=== PATIENT | female | born 1975 | race Two or more races ===

== ENCOUNTER 2017-01-27 00:09 | Inpatient (IN) | payer MEDICAID ==
[~2017-01-27] VITALS: Ht 157.5 cm; Wt 49.0 kg
[2017-01-27] VITALS (25 sets, daily range): BP systolic 111–200; BP diastolic 52–90
[2017-01-27] MEDS ORDERED: ATENOLOL25 MG ORAL (00:17)
--- NOTE | 2017-01-27 00:21 | Emergency Room Report ---
History of Present Illness General Chief Complaint: Dyspnea/Respdistress Source: Patient, EMS Present Illness HPI Is a 41-year-old female with history of renal failure on hemodialysis. Her dialysis days are Friday, , and Friday. She presents with chief complaint of shortness of breath. Onset tonight. Hard time breathing. Worse with laying flat. With exertion. EMS said that she was very tight any respiratory distress so they put her on breathing treatment and brought her here. Patient denies any chest pain. No diaphoresis Allergies: Coded Allergies: PENICILLINS (Verified Allergy, Unknown, 01/27/17) Patient History Past Medical History: see triage record, old chart reviewed, HTN, renal disease , dialysis Past Surgical History: other Pertinent Family History: none Social History: Denies: smoking Now: No Immunizations: other Reviewed Nursing Documentation: PMH: Agreed, PSxH: Agreed Nursing Documentation-PMH Hx Hypertension: Yes Hx Diabetes: Yes Hx Dialysis: Yes - //Fri Review of Systems Eye: Denies: eye pain, blurred vision ENT: Denies: ear pain, nose congestion, throat swelling Respiratory: Reports: shortness of breath, CHAPMAN, Denies: cough Cardiovascular: Denies: chest pain, palpitations Gastrointestinal: Denies: abdominal pain, diarrhea, nausea, vomiting Musculoskeletal: Denies: back pain, joint pain Skin: Denies: rash Neurological: Denies: headache, numbness Endocrine: Denies: increased thirst, increased urine Hematologic/Lymphatic: Denies: easy bruising All Other Systems: negative except mentioned in HPI Physical Exam Vital Signs Date Time Temp Pulse Resp B/P (MAP) Pulse Ox O2 Delivery O2 Flow Rate FiO2 01/27/17 00:13 98.8 85 20 200/84 100 Ambu-Bag 4.0 vitals with hypertension Sp02 EP Interpretation: reviewed, normal General Appearance: well appearing, alert, moderate distress Head: normocephalic, atraumatic Eyes: bilateral eye PERRL, bilateral eye EOMI ENT: hearing grossly normal, normal pharynx Neck: full range of motion, supple, no meningismus Respiratory: chest non-tender, respiratory distress, decreased breath sounds, accessory muscle use, rales Cardiovascular #1: regular rate, rhythm, no murmur Gastrointestinal: normal bowel sounds, non tender, no mass, no organomegaly, no bruit, non-distended Musculoskeletal: back normal, gait/station normal, normal range of motion Psychiatric: mood/affect normal Skin: warm/dry Procedures Critical Care Time Critical Care Time Critical care is mandated in this patient who presented with respiratory distress from pulmonary . Patient require my urgent intervention to attenuate the risks of metabolic collapse which may lead to cardiovascular collapse and . Critical care time is 35 minutes excluding any reportable procedure. Critical care time included evaluation, multiple reevaluation, looking at old charts, interpreting laboratory and diagnostic data, discussing case with patient and family and consultants, and charting. Medical Decision Making Diagnostic Impression: Primary Impression: Pulmonary edema Qualified Codes: J81.0 - Acute pulmonary edema Additional Impressions: Respiratory failure with hypoxia Qualified Codes: J96.01 - Acute respiratory failure with hypoxia Hypertensive emergency Acute hyperkalemia ER Course Patient presents with respiratory distress secondary to pulmonary edema. Patient said that she did get dialysis on Friday. Her potassium elevated. Medication given to lower. I discussed the case with Dr. Waller who will admit. He asked that I consulted Dr. Mo for signal tower director. I discussed case with Dr. Mo who will call orders for dialysis. Laboratory Tests Test 01/27/17 00:40 01/27/17 01:45 01/27/17 01:56 White Blood Count 10.4 K/UL (4.8-10.8) Red Blood Count 3.35 M/UL (4.20-5.40) L Hemoglobin 10.2 G/DL (12.0-16.0) L Hematocrit 31.7 % (37.0-47.0) L Mean Corpuscular Volume 95 FL (80-99) Mean Corpuscular Hemoglobin 30.4 PG (27.0-31.0) Mean Corpuscular Hemoglobin Concent 32.1 G/DL (32.0-36.0) Red Cell Distribution Width 13.3 % (11.6-14.8) Platelet Count 144 K/UL (150-450) L Mean Platelet Volume 8.7 FL (6.5-10.1) Neutrophils (%) (Auto) 81.9 % (45.0-75.0) H Lymphocytes (%) (Auto) 12.4 % (20.0-45.0) L Monocytes (%) (Auto) 4.3 % (1.0-10.0) Eosinophils (%) (Auto) 0.8 % (0.0-3.0) Basophils (%) (Auto) 0.6 % (0.0-2.0) Sodium Level 137 MMOL/L (136-145) Potassium Level 6.5 MMOL/L (3.5-5.1) *H 7.0 MMOL/L (3.5-5.1) *H Chloride Level 103 MMOL/L (98-107) Carbon Dioxide Level 22 MMOL/L (21-32) Anion Gap 13 mmol/L (5-15) Blood Urea Nitrogen 44 mg/dL (7-18) H Creatinine 7.1 MG/DL (0.55-1.30) H Estimat Glomerular Filtration Rate 6.3 mL/min (>60) Glucose Level 120 MG/DL (74-106) H Calcium Level 9.4 MG/DL (8.5-10.1) Total Bilirubin 0.8 MG/DL (0.2-1.0) Aspartate Amino Transf (AST/SGOT) 56 U/L (15-37) H Alanine Aminotransferase (ALT/SGPT) 30 U/L (12-78) Alkaline Phosphatase 181 U/L (46-116) H Total Creatine Kinase 164 U/L (26-308) Creatine Kinase MB 0.6 NG/ML (0.0-3.6) Creatine Kinase MB Relative Index 0.3 Troponin I 0.012 ng/mL (0.000-0.056) Pro-B-Type Natriuretic Peptide 012423 pg/mL (0-125) H Total Protein 7.9 G/DL (6.4-8.2) Albumin 4.1 G/DL (3.4-5.0) Globulin 3.8 g/dL Albumin/Globulin Ratio 1.1 (1.0-2.7) Arterial Blood pH 7.374 (7.350-7.450) Arterial Blood Partial Pressure CO2 37.1 mmHg (35.0-45.0) Arterial Blood Partial Pressure O2 59.2 mmHg (75.0-100.0) L Arterial Blood HCO3 21.2 mmol/L (22.0-26.0) L Arterial Blood Oxygen Saturation 89.4 % (92.0-98.0) L Arterial Blood Base Excess -3.6 Raul Test Positive Lab Results Impression labs with elevated BNP and potassium EKG Diagnostic Results Rate: normal Rhythm: NSR ST Segments: other - NSST changes Rhythm Strip Diag. Results Rhythm Strip Time: 00:28 EP Interpretation: yes Rate: 94 Rhythm: NSR, no PVC's, no ectopy Chest X-Ray Diagnostic Results Chest X-Ray Diagnostic Results : Chest X-Ray Ordered: Yes # of Views/Limited/Complete: 1 View Indication: Shortness of Breath EP Interpretation: Yes Interpretation: no consolidation, no pneumothorax, other - Pulmonary edema Impression: Other - pulmonary edema Last Vital Signs Date Time Temp Pulse Resp B/P (MAP) Pulse Ox O2 Delivery O2 Flow Rate FiO2 01/27/17 00:13 98.8 85 20 200/84 100 Ambu-Bag 4.0 Status: improved Disposition: ADMITTED INPATIENT Condition: Critical BERNARD ROSARIO M.D. Jan 27, 2017 00:21
[2017-01-27] MEDS ORDERED: Nitroglycerin Subl 0.4mg tab SL ONE (00:30)
[2017-01-27] MEDS ORDERED: Nitroglycerin 2% oint pkt TOPIC ONE (00:30)
[2017-01-27 00:52] LABS: BASOPHILS % (AUTO) 0.6 % (0.0-2.0); EOSINOPHILS % (AUTO) 0.8 % (0.0-3.0); LYMPHOCYTES % (AUTO) 12.4 % (20.0-45.0); MEAN CORPUSCULAR HEMOGLOBIN 30.4 PG (27.0-31.0); MEAN CORPUSCULAR HGB CONC 32.1 G/DL (32.0-36.0); MEAN CORPUSCULAR VOLUME 95 FL (80-99); MEAN PLATELET VOLUME 8.7 FL (6.5-10.1); MONOCYTES % (AUTO) 4.3 % (1.0-10.0); NEUTROPHILS % (AUTO) 81.9 % (45.0-75.0); PLATELET COUNT 144 K/UL (150-450); RED BLOOD COUNT 3.35 M/UL (4.20-5.40); RED CELL DISTRIBUTION WIDTH 13.3 % (11.6-14.8); WHITE BLOOD COUNT 10.4 K/UL (4.8-10.8)
[2017-01-27 01:24] LABS: ALANINE AMINOTRANSFERASE 30 U/L (12-78); ALBUMIN/GLOBULIN RATIO 1.1 (1.0-2.7); ANION GAP 13 mmol/L (5-15); ASPARTATE AMINO TRANSFERASE 56 U/L (15-37); CALCIUM 9.4 MG/DL (8.5-10.1); CARBON DIOXIDE 22 MMOL/L (21-32); CHLORIDE 103 MMOL/L (98-107); CKMB 0.6 NG/ML (0.0-3.6); CREATININE 7.1 MG/DL (0.55-1.30); GLOMERULAR FILTRATION RATE 6.3 mL/min (>60); SODIUM 137 MMOL/L (136-145); TOTAL PROTEIN 7.9 G/DL (6.4-8.2)
[2017-01-27 01:27] LABS: POTASSIUM 6.5 MMOL/L (3.5-5.1)
[2017-01-27] MEDS ORDERED: Sodium Polystyrene Sulfonate 15gm Powder ORAL ONE ×2 (02:15→08:00)
[2017-01-27] MEDS ORDERED: Calcium Gluconate 1gm/10ml vial IVP ONE (02:15)
[2017-01-27 02:19] LABS: ABG ALLEN TEST POSITIVE; ABG BASE EXCESS -3.6; ABG PCO2 37.1 mmHg (35.0-45.0)
[2017-01-27] MEDS ORDERED: Morphine Sulfate 2mg/ml Inj IVP PRN ×2 (07:00→08:30)
[2017-01-27] MEDS ORDERED: Nitroglycerin Subl 0.4mg tab SL PRN (07:00)
[2017-01-27 07:53] LABS: MEAN CORPUSCULAR HEMOGLOBIN 30.5 PG (27.0-31.0); MEAN CORPUSCULAR HGB CONC 32.3 G/DL (32.0-36.0); MEAN CORPUSCULAR VOLUME 95 FL (80-99); MEAN PLATELET VOLUME 8.6 FL (6.5-10.1); PLATELET COUNT 132 K/UL (150-450); RED BLOOD COUNT 3.18 M/UL (4.20-5.40); RED CELL DISTRIBUTION WIDTH 13.6 % (11.6-14.8); WHITE BLOOD COUNT 13.3 K/UL (4.8-10.8)
[2017-01-27 08:10] LABS: ANION GAP 17 mmol/L (5-15); CALCIUM 9.7 MG/DL (8.5-10.1); CARBON DIOXIDE 21 MMOL/L (21-32); CHLORIDE 104 MMOL/L (98-107); CREATININE 7.7 MG/DL (0.55-1.30); GLOMERULAR FILTRATION RATE 5.8 mL/min (>60); POTASSIUM 5.5 MMOL/L (3.5-5.1); SODIUM 141 MMOL/L (136-145)
[2017-01-27 08:17] LABS: ALANINE AMINOTRANSFERASE 22 U/L (12-78); ASPARTATE AMINO TRANSFERASE 42 U/L (15-37); TOTAL PROTEIN 7.2 G/DL (6.4-8.2)
[2017-01-27 08:21] LABS: CHOLESTEROL 236 MG/DL (< 200); CHOLESTEROL/HDL RATIO 4.2 (3.3-4.4)
[2017-01-27 08:24] LABS: BAND NEUTROPHILS % (MANUAL) 0 % (0-8); BASOPHILS % (MANUAL) 1 % (0-2); EOSINOPHILS % (MANUAL) 0 % (0-3); LYMPHOCYTES % (MANUAL) 9 % (20-45); NEUTROPHILS % (MANUAL) 87 % (45-75); PLATELET ESTIMATE DECREASED; PLATELET MORPHOLOGY NORMAL; TOTAL CELLS COUNTED 100
[2017-01-27] MEDS ORDERED: Atenolol 25mg tab ORAL ONE (09:00)
--- NOTE | 2017-01-27 10:51 | Pulmonolgy Critical Care Note ---
Critical Care - Asmt/Plan Problems: (1) ESRF (end stage renal failure) (2) Fever (3) Acute hyperkalemia (4) Pulmonary edema Respiratory: monitor respiratory rate, adjust FIO2 Cardiac: continue to monitor HR/BP Renal: F/U I&O Infectious Disease: check cultures, continue antibiotics Gastrointestinal: continue feedings/current rate Endocrine: monitor blood sugar, continue sliding scale insulin Hematologic: monitor H/H, transfuse if hgb<8.5 Neurologic: keep patient comfortable Affect: PRN ativan Prophylaxis: Protonix Notes Reviewed: spike machine feeder, cardio, renal Critical Care - Objective Last 24 Hour Vital Signs Date Time Temp Pulse Resp B/P (MAP) Pulse Ox O2 Delivery O2 Flow Rate FiO2 01/27/17 10:16 99 Venturi Mask 12.0 50 01/27/17 10:16 Venturi Mask 12.0 50 01/27/17 10:00 82 27 143/79 100 Venturi Mask 50 01/27/17 09:41 99.8 01/27/17 09:15 84 21 99 Facial 40 01/27/17 09:00 90 28 156/62 99 Bi-pap 4.0 40 01/27/17 08:40 90 159/62 01/27/17 08:00 90 01/27/17 08:00 4.0 40 01/27/17 08:00 101.2 90 29 160/66 99 Bi-pap 4.0 40 01/27/17 07:00 92 22 156/73 97 Bi-pap 4.0 40 01/27/17 06:56 100 Facial 40 01/27/17 06:52 97 29 Bi-pap 40 01/27/17 06:00 92 22 176/90 97 Bi-pap 4.0 40 01/27/17 05:20 105 32 97 Facial 40 01/27/17 05:00 102 28 157/79 97 Bi-pap 4.0 40 01/27/17 04:30 99.8 106 30 162/70 95 Bi-pap 4.0 40 01/27/17 04:21 107 01/27/17 04:15 98.2 92 22 176/90 97 Bi-pap 15.0 100 01/27/17 03:50 97 15.0 100 01/27/17 03:45 98.2 92 22 176/90 97 Bi-pap 4.0 40 01/27/17 02:57 184/96 01/27/17 02:45 98.6 88 22 170/80 96 Bi-pap 4.0 40 01/27/17 02:25 83 30 98 Facial 40 01/27/17 01:35 98.5 81 26 173/86 97 Bi-pap 4.0 40 01/27/17 01:02 88 20 Bi-pap 4.0 40 01/27/17 00:58 4.0 40 01/27/17 00:55 200/84 01/27/17 00:54 200/84 01/27/17 00:35 99 32 Bi-pap 40 01/27/17 00:35 98.8 88 20 200/84 100 Ambu-Bag 4.0 01/27/17 00:35 99 32 98 Facial 40 01/27/17 00:13 98.8 85 20 200/84 100 Ambu-Bag 4.0 Status: somnolent Condition: critical HEENT: atraumatic Lungs: clear Abdomen: non-tender, active bowel sounds Extremities: edema Decubiti: location, stage Accucheck: 98 Critical Care - Subjective ROS Limited/Unobtainable: No ICU Day: 1 Interval Events: 41-year-old female with history of renal failure on hemodialysis ( Friday, , and Friday) presented to ER with chief complaint of shortness of breath. EMS said that she was very tight any respiratory distress so they put her on breathing treatment. Pt was diagnosed to have acute pulmonary edema, fever and admitted to ICU for further work up. Currently she is getting HD and is already off bipap. FI02: 50 Sputum Amount: None I&O: Intake and Output 01/27/17 01/28/17 19:00 07:00 Intake Total 55 ml Balance 55 ml Intake Oral 25 ml Other 30 ml CXR: pulmonary edema Labs: Laboratory Tests Test 01/27/17 00:40 01/27/17 01:45 01/27/17 01:56 01/27/17 07:40 White Blood Count 10.4 K/UL (4.8-10.8) 13.3 K/UL (4.8-10.8) H Red Blood Count 3.35 M/UL (4.20-5.40) L 3.18 M/UL (4.20-5.40) L Hemoglobin 10.2 G/DL (12.0-16.0) L 9.7 G/DL (12.0-16.0) L Hematocrit 31.7 % (37.0-47.0) L 30.1 % (37.0-47.0) L Mean Corpuscular Volume 95 FL (80-99) 95 FL (80-99) Mean Corpuscular Hemoglobin 30.4 PG (27.0-31.0) 30.5 PG (27.0-31.0) Mean Corpuscular Hemoglobin Concent 32.1 G/DL (32.0-36.0) 32.3 G/DL (32.0-36.0) Red Cell Distribution Width 13.3 % (11.6-14.8) 13.6 % (11.6-14.8) Platelet Count 144 K/UL (150-450) L 132 K/UL (150-450) L Mean Platelet Volume 8.7 FL (6.5-10.1) 8.6 FL (6.5-10.1) Neutrophils (%) (Auto) 81.9 % (45.0-75.0) H % (45.0-75.0) Lymphocytes (%) (Auto) 12.4 % (20.0-45.0) L % (20.0-45.0) Monocytes (%) (Auto) 4.3 % (1.0-10.0) % (1.0-10.0) Eosinophils (%) (Auto) 0.8 % (0.0-3.0) % (0.0-3.0) Basophils (%) (Auto) 0.6 % (0.0-2.0) % (0.0-2.0) Sodium Level 137 MMOL/L (136-145) 141 MMOL/L (136-145) Potassium Level 6.5 MMOL/L (3.5-5.1) *H 7.0 MMOL/L (3.5-5.1) *H 5.5 MMOL/L (3.5-5.1) H Chloride Level 103 MMOL/L (98-107) 104 MMOL/L (98-107) Carbon Dioxide Level 22 MMOL/L (21-32) 21 MMOL/L (21-32) Anion Gap 13 mmol/L (5-15) 17 mmol/L (5-15) H Blood Urea Nitrogen 44 mg/dL (7-18) H 51 mg/dL (7-18) H Creatinine 7.1 MG/DL (0.55-1.30) H 7.7 MG/DL (0.55-1.30) H Estimat Glomerular Filtration Rate 6.3 mL/min (>60) 5.8 mL/min (>60) Glucose Level 120 MG/DL (74-106) H 103 MG/DL (74-106) Calcium Level 9.4 MG/DL (8.5-10.1) 9.7 MG/DL (8.5-10.1) Total Bilirubin 0.8 MG/DL (0.2-1.0) 0.8 MG/DL (0.2-1.0) Aspartate Amino Transf (AST/SGOT) 56 U/L (15-37) H 42 U/L (15-37) H Alanine Aminotransferase (ALT/SGPT) 30 U/L (12-78) 22 U/L (12-78) Alkaline Phosphatase 181 U/L (46-116) H 159 U/L (46-116) H Total Creatine Kinase 164 U/L (26-308) Creatine Kinase MB 0.6 NG/ML (0.0-3.6) Creatine Kinase MB Relative Index 0.3 Troponin I 0.012 ng/mL (0.000-0.056) 0.067 ng/mL (0.000-0.056) Pro-B-Type Natriuretic Peptide 504349 pg/mL (0-125) H Total Protein 7.9 G/DL (6.4-8.2) 7.2 G/DL (6.4-8.2) Albumin 4.1 G/DL (3.4-5.0) 3.6 G/DL (3.4-5.0) Globulin 3.8 g/dL 3.6 g/dL Albumin/Globulin Ratio 1.1 (1.0-2.7) 1.0 (1.0-2.7) Arterial Blood pH 7.374 (7.350-7.450) Arterial Blood Partial Pressure CO2 37.1 mmHg (35.0-45.0) Arterial Blood Partial Pressure O2 59.2 mmHg (75.0-100.0) L Arterial Blood HCO3 21.2 mmol/L (22.0-26.0) L Arterial Blood Oxygen Saturation 89.4 % (92.0-98.0) L Arterial Blood Base Excess -3.6 Raul Test Positive Differential Total Cells Counted 100 Neutrophils % (Manual) 87 % (45-75) H Lymphocytes % (Manual) 9 % (20-45) L Monocytes % (Manual) 3 % (1-10) Eosinophils % (Manual) 0 % (0-3) Basophils % (Manual) 1 % (0-2) Band Neutrophils 0 % (0-8) Platelet Estimate Decreased L Platelet Morphology Normal Hemoglobin A1c 5.1 % (4.3-6.0) Triglycerides Level 214 MG/DL (30-150) H Cholesterol Level 236 MG/DL (< 200) H LDL Cholesterol 138 mg/dL (<100) H HDL Cholesterol 56 MG/DL (40-60) Cholesterol/HDL Ratio 4.2 (3.3-4.4) SANTOS ROMAN Jan 27, 2017 10:51
[2017-01-27] MEDS: NovoLOG Insulin Flexpen SUBQ SCH ×3 (11:21→20:48)
--- NOTE | 2017-01-27 11:46 | Consultation ---
Consult Note Consult Note asked to eval for dialysis management- came to Er with pulmonary edema and HyperKalemia Now in ICU on HD for 7 years right arm fistula HTN and DM Assessment/Plan Status; (1) ESRF (end stage renal failure) (2) Fever, leukocytosis (3) Acute hyperkalemia (4) Pulmonary edema (5) Anemia Plan: HD RONALD Low K bath BP control 2D Echo cultures Per orders CHUCKY LOGAN Jan 27, 2017 11:46
[2017-01-27] MEDS ORDERED: NovoLOG Insulin Flexpen SUBQ SCH (11:50)
--- NOTE | 2017-01-27 11:53 | Consultation ---
History of Present Illness General Date patient seen: Jan 27, 2017 Time patient seen: 12:15 Chief Complaint: Dyspnea/Respdistress Present Illness HPI 41 y/o F with hx of ESRD on HD via R arm fistula,anemia, HTN, DM2 presents to ED on 01/27 with 1 day of SOB, orthopnea and CHAPMAN. +cough, no productive. Denies CP, diaphoresis In the ED found to have pulmonary edema and hyperkalemia; required Bipap initially, now off. Febrile to 101.3 and leukocytosis to 13. Started on IV Zosyn. Allergies: Coded Allergies: PENICILLINS (Verified Allergy, Unknown, 01/27/17) Medication History Scheduled Atenolol* (Tenormin*), 25 MG ORAL DAILY, (Reported) Patient History Healthcare decision maker Resuscitation status Full Code Advanced Directive on File No Patient History Narrative Pmhx as above Shx: Denies: smoking Fx non contributory Review of Systems All Other Systems: negative except mentioned in HPI Physical Exam Physical Exam Narrative Status: awake HEENT: atraumatic Lungs: +bibasliar crakcles Abdomen: non-tender, active bowel sounds Extremities: edema Decubiti: location, stage Last 24 Hour Vital Signs Date Time Temp Pulse Resp B/P (MAP) Pulse Ox O2 Delivery O2 Flow Rate FiO2 01/27/17 11:00 75 20 128/61 99 Venturi Mask 50 01/27/17 10:16 99 Venturi Mask 12.0 50 01/27/17 10:16 Venturi Mask 12.0 50 01/27/17 10:00 82 27 143/79 100 Venturi Mask 50 01/27/17 09:41 99.8 01/27/17 09:15 84 21 99 Facial 40 01/27/17 09:00 90 28 156/62 99 Bi-pap 4.0 40 01/27/17 08:40 90 159/62 01/27/17 08:00 90 01/27/17 08:00 4.0 40 01/27/17 08:00 101.2 90 29 160/66 99 Bi-pap 4.0 40 01/27/17 07:00 92 22 156/73 97 Bi-pap 4.0 40 01/27/17 06:56 100 Facial 40 01/27/17 06:52 97 29 Bi-pap 40 01/27/17 06:00 92 22 176/90 97 Bi-pap 4.0 40 01/27/17 05:20 105 32 97 Facial 40 01/27/17 05:00 102 28 157/79 97 Bi-pap 4.0 40 01/27/17 04:30 99.8 106 30 162/70 95 Bi-pap 4.0 40 01/27/17 04:21 107 01/27/17 04:15 98.2 92 22 176/90 97 Bi-pap 15.0 100 01/27/17 03:50 97 15.0 100 01/27/17 03:45 98.2 92 22 176/90 97 Bi-pap 4.0 40 01/27/17 02:57 184/96 01/27/17 02:45 98.6 88 22 170/80 96 Bi-pap 4.0 40 01/27/17 02:25 83 30 98 Facial 40 01/27/17 01:35 98.5 81 26 173/86 97 Bi-pap 4.0 40 01/27/17 01:02 88 20 Bi-pap 4.0 40 01/27/17 00:58 4.0 40 01/27/17 00:55 200/84 01/27/17 00:54 200/84 01/27/17 00:35 99 32 Bi-pap 40 01/27/17 00:35 98.8 88 20 200/84 100 Ambu-Bag 4.0 01/27/17 00:35 99 32 98 Facial 40 01/27/17 00:13 98.8 85 20 200/84 100 Ambu-Bag 4.0 Intake and Output 01/27/17 01/28/17 19:00 07:00 Intake Total 55 ml Balance 55 ml Intake Oral 25 ml Other 30 ml Laboratory Tests Test 01/27/17 00:40 01/27/17 01:45 01/27/17 01:56 01/27/17 07:40 White Blood Count 10.4 K/UL (4.8-10.8) 13.3 K/UL (4.8-10.8) H Red Blood Count 3.35 M/UL (4.20-5.40) L 3.18 M/UL (4.20-5.40) L Hemoglobin 10.2 G/DL (12.0-16.0) L 9.7 G/DL (12.0-16.0) L Hematocrit 31.7 % (37.0-47.0) L 30.1 % (37.0-47.0) L Mean Corpuscular Volume 95 FL (80-99) 95 FL (80-99) Mean Corpuscular Hemoglobin 30.4 PG (27.0-31.0) 30.5 PG (27.0-31.0) Mean Corpuscular Hemoglobin Concent 32.1 G/DL (32.0-36.0) 32.3 G/DL (32.0-36.0) Red Cell Distribution Width 13.3 % (11.6-14.8) 13.6 % (11.6-14.8) Platelet Count 144 K/UL (150-450) L 132 K/UL (150-450) L Mean Platelet Volume 8.7 FL (6.5-10.1) 8.6 FL (6.5-10.1) Neutrophils (%) (Auto) 81.9 % (45.0-75.0) H % (45.0-75.0) Lymphocytes (%) (Auto) 12.4 % (20.0-45.0) L % (20.0-45.0) Monocytes (%) (Auto) 4.3 % (1.0-10.0) % (1.0-10.0) Eosinophils (%) (Auto) 0.8 % (0.0-3.0) % (0.0-3.0) Basophils (%) (Auto) 0.6 % (0.0-2.0) % (0.0-2.0) Sodium Level 137 MMOL/L (136-145) 141 MMOL/L (136-145) Potassium Level 6.5 MMOL/L (3.5-5.1) *H 7.0 MMOL/L (3.5-5.1) *H 5.5 MMOL/L (3.5-5.1) H Chloride Level 103 MMOL/L (98-107) 104 MMOL/L (98-107) Carbon Dioxide Level 22 MMOL/L (21-32) 21 MMOL/L (21-32) Anion Gap 13 mmol/L (5-15) 17 mmol/L (5-15) H Blood Urea Nitrogen 44 mg/dL (7-18) H 51 mg/dL (7-18) H Creatinine 7.1 MG/DL (0.55-1.30) H 7.7 MG/DL (0.55-1.30) H Estimat Glomerular Filtration Rate 6.3 mL/min (>60) 5.8 mL/min (>60) Glucose Level 120 MG/DL (74-106) H 103 MG/DL (74-106) Calcium Level 9.4 MG/DL (8.5-10.1) 9.7 MG/DL (8.5-10.1) Total Bilirubin 0.8 MG/DL (0.2-1.0) 0.8 MG/DL (0.2-1.0) Aspartate Amino Transf (AST/SGOT) 56 U/L (15-37) H 42 U/L (15-37) H Alanine Aminotransferase (ALT/SGPT) 30 U/L (12-78) 22 U/L (12-78) Alkaline Phosphatase 181 U/L (46-116) H 159 U/L (46-116) H Total Creatine Kinase 164 U/L (26-308) Creatine Kinase MB 0.6 NG/ML (0.0-3.6) Creatine Kinase MB Relative Index 0.3 Troponin I 0.012 ng/mL (0.000-0.056) 0.067 ng/mL (0.000-0.056) Pro-B-Type Natriuretic Peptide 025755 pg/mL (0-125) H Total Protein 7.9 G/DL (6.4-8.2) 7.2 G/DL (6.4-8.2) Albumin 4.1 G/DL (3.4-5.0) 3.6 G/DL (3.4-5.0) Globulin 3.8 g/dL 3.6 g/dL Albumin/Globulin Ratio 1.1 (1.0-2.7) 1.0 (1.0-2.7) Arterial Blood pH 7.374 (7.350-7.450) Arterial Blood Partial Pressure CO2 37.1 mmHg (35.0-45.0) Arterial Blood Partial Pressure O2 59.2 mmHg (75.0-100.0) L Arterial Blood HCO3 21.2 mmol/L (22.0-26.0) L Arterial Blood Oxygen Saturation 89.4 % (92.0-98.0) L Arterial Blood Base Excess -3.6 Raul Test Positive Differential Total Cells Counted 100 Neutrophils % (Manual) 87 % (45-75) H Lymphocytes % (Manual) 9 % (20-45) L Monocytes % (Manual) 3 % (1-10) Eosinophils % (Manual) 0 % (0-3) Basophils % (Manual) 1 % (0-2) Band Neutrophils 0 % (0-8) Platelet Estimate Decreased L Platelet Morphology Normal Hemoglobin A1c 5.1 % (4.3-6.0) Triglycerides Level 214 MG/DL (30-150) H Cholesterol Level 236 MG/DL (< 200) H LDL Cholesterol 138 mg/dL (<100) H HDL Cholesterol 56 MG/DL (40-60) Cholesterol/HDL Ratio 4.2 (3.3-4.4) Height (Feet): 5 Height (Inches): 2.00 Weight (Pounds): 113 Medications Current Medications Medications (Trade) Dose Ordered Sig/Sarah Route PRN Reason Start Time Stop Time Status Last Admin Dose Admin Acetaminophen (Tylenol) 650 mg Q6H PRN ORAL Mild Pain/Temp > 100.5 01/27/17 07:45 02/26/17 07:44 01/27/17 08:40 Clonidine HCl (Catapres) 0.1 mg Q4H PRN ORAL bp over 160 syst 01/27/17 12:00 02/26/17 11:59 UNV Dextrose (Dextrose 50%) STAT PRN IV Hypoglycemia 01/27/17 07:45 02/26/17 07:44 Hydralazine HCl (Apresoline) 10 mg Q6HR ORAL 01/27/17 12:00 02/26/17 11:59 UNV Insulin Aspart (NovoLOG) BEFORE MEALS AND HS SUBQ 01/27/17 11:30 02/26/17 11:29 01/27/17 11:21 Metoprolol Tartrate (Lopressor) 12.5 mg ONCE ONCE ORAL 01/27/17 12:00 01/27/17 12:01 UNV Metoprolol Tartrate (Lopressor) 12.5 mg Q12HR ORAL 01/27/17 21:00 02/26/17 20:59 UNV Morphine Sulfate (Morphine Sulfate) 1 mg Q8H PRN IVP For chest pain 01/27/17 08:30 02/03/17 06:59 Nitroglycerin (Ntg) 0.4 mg Q5M PRN SL Prn Chest Pain 01/27/17 07:00 02/26/17 06:59 Ondansetron HCl (Zofran) 4 mg Q6H PRN IVP Nausea & Vomiting 01/27/17 07:00 02/26/17 06:59 Pantoprazole (Protonix) 40 mg ACBREAKFAST ORAL 01/27/17 09:00 02/26/17 08:59 01/27/17 08:38 Piperacillin Sod/ Tazobactam Sod 2.25 gm/Dextrose 55 ml @ 110 mls/hr Q8HR IV 01/27/17 14:00 02/01/17 13:59 Assessment/Plan Assessment/Plan Abx: Zosyn 01/27- Assesment: Pulmonary edema -?PNA -CXR: Bilateral diffuse right greater than left interstitial and alveolar infiltrates versus edema Fever/leukocytosis- possible due to PNA- r/o bacteremia hyperkalemia ESRD on HD Dm2 HTN Plan: -Continue Zosyn pending sputum cx -seems to be tolerating Zosyn; monitor for rash -Obtain sputum and blood cultures -f/u cultures -Monitor CBC/CMP, temperatures Thank your for this consultation. Will continue to follow along with you. Discussed with Priscila Bolivar M.D. Jan 27, 2017 11:53
--- NOTE | 2017-01-27 12:02 | Diagnostic Imaging Report ---
Indication: SOB Technique: One view of the chest Comparison: none Findings: Surgical clips are seen in the left axilla. There are bilateral diffuse interstitial and alveolar infiltrates versus edema, worse on the right on the left. The heart size is probably upper limits of normal. Pleural spaces are probably clear Impression: Bilateral diffuse right greater than left interstitial and alveolar infiltrates versus edema Other findings as noted
[2017-01-27] MEDS ORDERED: Metoprolol Tartrate 12.5mg TAB ORAL ONE (12:30)
[2017-01-27] MEDS: HydrALAZINE 10mg Tab ORAL SCH ×2 (12:45→17:15)
--- NOTE | 2017-01-27 13:53 | History & Physical ---
History and Physical History & Physicial seen and examined. Dict # [id number] Wally Waller MD Jan 27, 2017 13:53
--- NOTE | 2017-01-27 13:54 | General Progress Note ---
Assessment/Plan Status: stable Assessment/Plan 1- Hypoxemic RF 2- DM 3- Pulmonary edema 4- HyperKalemia Plan: Nephrology Pulmonary ID are notified current management Subjective ROS Limited/Unobtainable: Yes Constitutional: Reports: malaise, other - delirious Allergies: Coded Allergies: PENICILLINS (Verified Allergy, Unknown, 01/27/17) hives Objective Last 24 Hour Vital Signs Date Time Temp Pulse Resp B/P (MAP) Pulse Ox O2 Delivery O2 Flow Rate FiO2 01/27/17 13:00 73 23 122/54 98 Venturi Mask 50 01/27/17 12:45 122/54 01/27/17 12:30 66 122/54 01/27/17 12:00 99.2 68 17 140/62 99 Venturi Mask 50 01/27/17 12:00 71 01/27/17 11:00 75 20 128/61 99 Venturi Mask 50 01/27/17 10:16 99 Venturi Mask 12.0 50 01/27/17 10:16 Venturi Mask 12.0 50 01/27/17 10:00 82 27 143/79 100 Venturi Mask 50 01/27/17 09:41 99.8 01/27/17 09:15 84 21 99 Facial 40 01/27/17 09:00 90 28 156/62 99 Bi-pap 4.0 40 01/27/17 08:40 90 159/62 01/27/17 08:00 90 01/27/17 08:00 4.0 40 01/27/17 08:00 101.2 90 29 160/66 99 Bi-pap 4.0 40 01/27/17 07:00 92 22 156/73 97 Bi-pap 4.0 40 01/27/17 06:56 100 Facial 40 01/27/17 06:52 97 29 Bi-pap 40 01/27/17 06:00 92 22 176/90 97 Bi-pap 4.0 40 01/27/17 05:20 105 32 97 Facial 40 01/27/17 05:00 102 28 157/79 97 Bi-pap 4.0 40 01/27/17 04:30 99.8 106 30 162/70 95 Bi-pap 4.0 40 01/27/17 04:21 107 01/27/17 04:15 98.2 92 22 176/90 97 Bi-pap 15.0 100 01/27/17 03:50 97 15.0 100 01/27/17 03:45 98.2 92 22 176/90 97 Bi-pap 4.0 40 01/27/17 02:57 184/96 01/27/17 02:45 98.6 88 22 170/80 96 Bi-pap 4.0 40 01/27/17 02:25 83 30 98 Facial 40 01/27/17 01:35 98.5 81 26 173/86 97 Bi-pap 4.0 40 01/27/17 01:02 88 20 Bi-pap 4.0 40 01/27/17 00:58 4.0 40 01/27/17 00:55 200/84 01/27/17 00:54 200/84 01/27/17 00:35 99 32 Bi-pap 40 01/27/17 00:35 98.8 88 20 200/84 100 Ambu-Bag 4.0 01/27/17 00:35 99 32 98 Facial 40 01/27/17 00:13 98.8 85 20 200/84 100 Ambu-Bag 4.0 Intake and Output 01/27/17 01/28/17 19:00 07:00 Intake Total 55 ml Balance 55 ml Intake Oral 25 ml Other 30 ml Laboratory Tests 01/27/17 00:40: White Blood Count 10.4, Red Blood Count 3.35L, Hemoglobin 10.2L, Hematocrit 31.7L, Mean Corpuscular Volume 95, Mean Corpuscular Hemoglobin 30.4, Mean Corpuscular Hemoglobin Concent 32.1, Red Cell Distribution Width 13.3, Platelet Count 144L, Mean Platelet Volume 8.7, Neutrophils (%) (Auto) 81.9H, Lymphocytes (%) (Auto) 12.4L, Monocytes (%) (Auto) 4.3, Eosinophils (%) (Auto) 0.8, Basophils (%) (Auto) 0.6, Sodium Level 137, Potassium Level 6.5*H, Chloride Level 103, Carbon Dioxide Level 22, Anion Gap 13, Blood Urea Nitrogen 44H, Creatinine 7.1H, Estimat Glomerular Filtration Rate 6.3, Glucose Level 120H, Calcium Level 9.4, Total Bilirubin 0.8, Aspartate Amino Transf (AST/SGOT) 56H, Alanine Aminotransferase (ALT/SGPT) 30, Alkaline Phosphatase 181H, Total Creatine Kinase 164, Creatine Kinase MB 0.6, Creatine Kinase MB Relative Index 0.3, Troponin I 0.012, Pro-B-Type Natriuretic Peptide [id number], Total Protein 7.9 , Albumin 4.1, Globulin 3.8, Albumin/Globulin Ratio 1.1 01/27/17 01:45: Potassium Level 7.0*H 01/27/17 01:56: Arterial Blood pH 7.374, Arterial Blood Partial Pressure CO2 37.1, Arterial Blood Partial Pressure O2 59.2L, Arterial Blood HCO3 21.2L, Arterial Blood Oxygen Saturation 89.4L, Arterial Blood Base Excess -3.6, Raul Test Positive 01/27/17 07:40: White Blood Count 13.3H, Red Blood Count 3.18L, Hemoglobin 9.7L, Hematocrit 30.1L, Mean Corpuscular Volume 95, Mean Corpuscular Hemoglobin 30.5, Mean Corpuscular Hemoglobin Concent 32.3, Red Cell Distribution Width 13.6, Platelet Count 132L, Mean Platelet Volume 8.6, Neutrophils (%) (Auto) , Lymphocytes (%) ( Auto) , Monocytes (%) (Auto) , Eosinophils (%) (Auto) , Basophils (%) (Auto) , Sodium Level 141, Potassium Level 5.5H, Chloride Level 104, Carbon Dioxide Level 21, Anion Gap 17H, Blood Urea Nitrogen 51H, Creatinine 7.7H, Estimat Glomerular Filtration Rate 5.8, Glucose Level 103, Calcium Level 9.7, Total Bilirubin 0.8, Aspartate Amino Transf (AST/SGOT) 42H, Alanine Aminotransferase ( ALT/SGPT) 22, Alkaline Phosphatase 159H, Troponin I 0.067H, Total Protein 7.2, Albumin 3.6, Globulin 3.6, Albumin/Globulin Ratio 1.0, Differential Total Cells Counted 100, Neutrophils % (Manual) 87H, Lymphocytes % (Manual) 9L, Monocytes % (Manual) 3, Eosinophils % (Manual) 0, Basophils % (Manual) 1, Band Neutrophils 0 , Platelet Estimate DecreasedL, Platelet Morphology Normal, Hemoglobin A1c 5.1, Triglycerides Level 214H, Cholesterol Level 236H, LDL Cholesterol 138H, HDL Cholesterol 56, Cholesterol/HDL Ratio 4.2 Height (Feet): 5 Height (Inches): 2.00 Weight (Pounds): 113 General Appearance: WD/WN EENT: PERRL/EOMI Neck: supple Cardiovascular: normal rate Respiratory/Chest: crackles/rales, rhonchi - bilaterally Abdomen: soft Extremities: non-tender Neurologic: rn vascular II-XII grossly normal Wally Waller MD Jan 27, 2017 13:54
[2017-01-27] MEDS ORDERED: Piperacillin/Tazobactam 3.375 GM in D5W 55 ML IVPB SCH (14:00)
--- NOTE | 2017-01-27 14:08 | Cardiology Report ---
APPROVED REPORT EXAM: Two-dimensional and M-mode echocardiogram with Doppler and color Doppler. INDICATION Congestive Heart Failure M-Mode DIMENSIONS IVSd1.0 (0.7-1.1cm)Left Atrium (MM)2.0 (1.6-4.0cm) LVDd4.5 (3.5-5.6cm)Aortic Root2.2 (2.0-3.7cm) PWd1.0 (0.7-1.1cm)Aortic Cusp Exc.1.4 (1.5-2.0cm) IVSs1.3 cm LVDs3.4 (2.5-4.0cm) PWs1.1 cm Normal left ventricular chamber size, systolic function and wall motion. Left ventricular ejection fraction estimated to be 50-55 %. No evidence of pericardial effusion. All other cardiac chamber sizes are within normal limits. Left atrial size at upper limits of normal. Right ventricular chamber sizes is within normal limits. Mild Focal aortic valve sclerosis with adequate cusp excursion. Mild Thickened mitral valve leaflets with normal excursion. Mild to Moderate mitral valve regurgitation . Pulmonic valve not well visualized. Normal tricuspid valve structure. IVC at normal size with physiologic collapse. A color flow and spectral Doppler study was performed and revealed: No aortic regurgitation. No evidence of diastolic dysfunction. Moderate, tricuspid regurgitation. Tricuspid systolic velocities suggests peak right ventricular systolic pressure of 58 mmHg Moderate to severe pulmonary hypertension.
[2017-01-27] MEDS: Zosyn 2.25 gm in D5W 55ml IV SCH ×2 (14:39→22:23)
--- NOTE | 2017-01-27 15:15 | History and Physical Report ---
DATE OF ADMISSION: 01/27/2017 SOURCE OF INFORMATION: EMR. HISTORY OF PRESENT ILLNESS: The patient is a 41-year-old female. The patient presented with increasing shortness of breath and chest pain. At the time of evaluation, the patient is delirious. Limited source of information. REVIEW OF SYSTEMS: Limited. Within this limitation, no abnormal bleeding has been reported. PAST MEDICAL HISTORY: End-stage renal disease on dialysis, hypertension, remainder cannot be obtained. PAST SURGICAL HISTORY: Cannot be verified. SOCIAL HISTORY: The patient denies history of illicit drug abuse, smoking, or alcohol abuse. PHYSICAL EXAMINATION: VITAL SIGNS: Blood pressure 150/70, RR: 18 , pulse oximetry is 95% on four liters of BiPAP, pulse rate 100 to 110, and temperature 99.8. HEAD AND NECK: Atraumatic and normocephalic. CHEST: Diffuse decreased breathing sounds in the bases of the lungs. No wheezing. HEART: S1 and S2. Sinus Tachycardic. NEUROLOGY: The patient awake, alert and oriented x1, sleepy. LABORATORY DATA: Labs dated 01/27/2017 shows WBC 10.4, hemoglobin 10.2, platelets 144. Sodium 141, potassium 7. IMAGING: Chest x-ray dated 01/27/2017 shows bilateral pleural effusion, possibility of infiltrate cannot be excluded. IMPRESSION: 1. Hypoxemic respiratory failure. 2. Pulmonary edema. 3. Hypertension. 4. Diabetes. 5. Acute hyperkalemia. 6. Chest pain and shortness of breath possibility of acute coronary artery disease cannot be excluded. 7. Gastrointestinal and deep venous thrombosis prophylaxis. PLAN OF CARE: 1. Client Associate/pulmonary, Dr. Laguna, Nephrology and Infectious Diseases are consulted. 2. We will continue with the current management. 3. I agree with the ICU admission. Wally Waller M.D. DR: Rimma JOB#: [id number] CC: LANDON
[2017-01-27] MEDS ORDERED: SYNTHROID100 MCG ORAL (17:53)
[2017-01-27] MEDS ORDERED: TENORMIN25 MG ORAL (18:12)
[2017-01-27] MEDS ORDERED: NEXIUM20 MG ORAL (18:12)
[2017-01-27] MEDS ORDERED: PROCARDIA XL30 MG ORAL (18:12)
[2017-01-27] MEDS ORDERED: LEXAPRO10 MG ORAL (18:12)
--- NOTE | 2017-01-27 18:28 | Cardiology Report ---
APPROVED REPORT EKG Measurement Heart [id number] Normal sinus rhythm Nonspecific ST abnormality Abnormal ECG
--- NOTE | 2017-01-27 19:01 | Cardiology Progress Note ---
Assessment/Plan Assessment/Plan The patient is seen and examined, full consult note will be dictated shorty. Objective Last 24 Hour Vital Signs Date Time Temp Pulse Resp B/P (MAP) Pulse Ox O2 Delivery O2 Flow Rate FiO2 01/27/17 18:00 67 16 122/55 98 Venturi Mask 50 01/27/17 17:15 145/60 01/27/17 17:00 71 20 136/64 100 Venturi Mask 50 01/27/17 16:00 78 01/27/17 16:00 99.2 72 16 124/52 96 Venturi Mask 50 01/27/17 15:00 85 22 132/55 94 Venturi Mask 50 01/27/17 14:52 Venturi Mask 13.0 50 01/27/17 14:00 69 19 128/55 100 Venturi Mask 50 01/27/17 13:50 97.8 73 16 125/54 Venturi Mask 01/27/17 13:50 Venturi Mask 13.0 01/27/17 13:00 73 23 122/54 98 Venturi Mask 50 01/27/17 12:45 122/54 01/27/17 12:30 66 122/54 01/27/17 12:00 99.2 68 17 140/62 99 Venturi Mask 50 01/27/17 12:00 71 01/27/17 11:00 Venturi Mask 12.0 01/27/17 11:00 75 20 128/61 99 Venturi Mask 50 01/27/17 11:00 99.8 78 16 127/55 Venturi Mask 78 01/27/17 10:16 99 Venturi Mask 12.0 50 01/27/17 10:16 Venturi Mask 12.0 50 01/27/17 10:00 82 27 143/79 100 Venturi Mask 50 01/27/17 09:41 99.8 01/27/17 09:15 84 21 99 Facial 40 01/27/17 09:00 90 28 156/62 99 Bi-pap 4.0 40 01/27/17 08:40 90 159/62 01/27/17 08:00 90 01/27/17 08:00 4.0 40 01/27/17 08:00 101.2 90 29 160/66 99 Bi-pap 4.0 40 01/27/17 07:00 92 22 156/73 97 Bi-pap 4.0 40 01/27/17 06:56 100 Facial 40 01/27/17 06:52 97 29 Bi-pap 40 01/27/17 06:00 92 22 176/90 97 Bi-pap 4.0 40 01/27/17 05:20 105 32 97 Facial 40 01/27/17 05:00 102 28 157/79 97 Bi-pap 4.0 40 01/27/17 04:30 99.8 106 30 162/70 95 Bi-pap 4.0 40 01/27/17 04:21 107 01/27/17 04:15 98.2 92 22 176/90 97 Bi-pap 15.0 100 01/27/17 03:50 97 15.0 100 01/27/17 03:45 98.2 92 22 176/90 97 Bi-pap 4.0 40 01/27/17 02:57 184/96 01/27/17 02:45 98.6 88 22 170/80 96 Bi-pap 4.0 40 01/27/17 02:25 83 30 98 Facial 40 01/27/17 01:35 98.5 81 26 173/86 97 Bi-pap 4.0 40 01/27/17 01:02 88 20 Bi-pap 4.0 40 01/27/17 00:58 4.0 40 01/27/17 00:55 200/84 01/27/17 00:54 200/84 01/27/17 00:35 99 32 Bi-pap 40 01/27/17 00:35 98.8 88 20 200/84 100 Ambu-Bag 4.0 01/27/17 00:35 99 32 98 Facial 40 01/27/17 00:13 98.8 85 20 200/84 100 Ambu-Bag 4.0 Intake and Output 01/27/17 01/28/17 19:00 07:00 Intake Total 413 ml Output Total 3924 ml Balance -3511 ml Intake Oral 173 ml IV Total 55 ml Other 185 ml Output Hemodialysis UF 3924 ml # Voids 1 # Bowel Movements 1 Laboratory Tests Test 01/27/17 00:40 01/27/17 01:45 01/27/17 01:56 01/27/17 07:40 White Blood Count 10.4 K/UL (4.8-10.8) 13.3 K/UL (4.8-10.8) H Red Blood Count 3.35 M/UL (4.20-5.40) L 3.18 M/UL (4.20-5.40) L Hemoglobin 10.2 G/DL (12.0-16.0) L 9.7 G/DL (12.0-16.0) L Hematocrit 31.7 % (37.0-47.0) L 30.1 % (37.0-47.0) L Mean Corpuscular Volume 95 FL (80-99) 95 FL (80-99) Mean Corpuscular Hemoglobin 30.4 PG (27.0-31.0) 30.5 PG (27.0-31.0) Mean Corpuscular Hemoglobin Concent 32.1 G/DL (32.0-36.0) 32.3 G/DL (32.0-36.0) Red Cell Distribution Width 13.3 % (11.6-14.8) 13.6 % (11.6-14.8) Platelet Count 144 K/UL (150-450) L 132 K/UL (150-450) L Mean Platelet Volume 8.7 FL (6.5-10.1) 8.6 FL (6.5-10.1) Neutrophils (%) (Auto) 81.9 % (45.0-75.0) H % (45.0-75.0) Lymphocytes (%) (Auto) 12.4 % (20.0-45.0) L % (20.0-45.0) Monocytes (%) (Auto) 4.3 % (1.0-10.0) % (1.0-10.0) Eosinophils (%) (Auto) 0.8 % (0.0-3.0) % (0.0-3.0) Basophils (%) (Auto) 0.6 % (0.0-2.0) % (0.0-2.0) Sodium Level 137 MMOL/L (136-145) 141 MMOL/L (136-145) Potassium Level 6.5 MMOL/L (3.5-5.1) *H 7.0 MMOL/L (3.5-5.1) *H 5.5 MMOL/L (3.5-5.1) H Chloride Level 103 MMOL/L (98-107) 104 MMOL/L (98-107) Carbon Dioxide Level 22 MMOL/L (21-32) 21 MMOL/L (21-32) Anion Gap 13 mmol/L (5-15) 17 mmol/L (5-15) H Blood Urea Nitrogen 44 mg/dL (7-18) H 51 mg/dL (7-18) H Creatinine 7.1 MG/DL (0.55-1.30) H 7.7 MG/DL (0.55-1.30) H Estimat Glomerular Filtration Rate 6.3 mL/min (>60) 5.8 mL/min (>60) Glucose Level 120 MG/DL (74-106) H 103 MG/DL (74-106) Calcium Level 9.4 MG/DL (8.5-10.1) 9.7 MG/DL (8.5-10.1) Total Bilirubin 0.8 MG/DL (0.2-1.0) 0.8 MG/DL (0.2-1.0) Aspartate Amino Transf (AST/SGOT) 56 U/L (15-37) H 42 U/L (15-37) H Alanine Aminotransferase (ALT/SGPT) 30 U/L (12-78) 22 U/L (12-78) Alkaline Phosphatase 181 U/L (46-116) H 159 U/L (46-116) H Total Creatine Kinase 164 U/L (26-308) Creatine Kinase MB 0.6 NG/ML (0.0-3.6) Creatine Kinase MB Relative Index 0.3 Troponin I 0.012 ng/mL (0.000-0.056) 0.067 ng/mL (0.000-0.056) Pro-B-Type Natriuretic Peptide 553749 pg/mL (0-125) H Total Protein 7.9 G/DL (6.4-8.2) 7.2 G/DL (6.4-8.2) Albumin 4.1 G/DL (3.4-5.0) 3.6 G/DL (3.4-5.0) Globulin 3.8 g/dL 3.6 g/dL Albumin/Globulin Ratio 1.1 (1.0-2.7) 1.0 (1.0-2.7) Arterial Blood pH 7.374 (7.350-7.450) Arterial Blood Partial Pressure CO2 37.1 mmHg (35.0-45.0) Arterial Blood Partial Pressure O2 59.2 mmHg (75.0-100.0) L Arterial Blood HCO3 21.2 mmol/L (22.0-26.0) L Arterial Blood Oxygen Saturation 89.4 % (92.0-98.0) L Arterial Blood Base Excess -3.6 Raul Test Positive Differential Total Cells Counted 100 Neutrophils % (Manual) 87 % (45-75) H Lymphocytes % (Manual) 9 % (20-45) L Monocytes % (Manual) 3 % (1-10) Eosinophils % (Manual) 0 % (0-3) Basophils % (Manual) 1 % (0-2) Band Neutrophils 0 % (0-8) Platelet Estimate Decreased L Platelet Morphology Normal Hemoglobin A1c 5.1 % (4.3-6.0) Triglycerides Level 214 MG/DL (30-150) H Cholesterol Level 236 MG/DL (< 200) H LDL Cholesterol 138 mg/dL (<100) H HDL Cholesterol 56 MG/DL (40-60) Cholesterol/HDL Ratio 4.2 (3.3-4.4) Test 01/27/17 15:15 Troponin I 0.090 ng/mL (0.000-0.056) JANE ADKINS Jan 27, 2017 19:01
[2017-01-27] MEDS: Metoprolol Tartrate 12.5mg TAB ORAL SCH (20:48)
--- NOTE | 2017-01-27 21:45 | Consultation ---
DATE OF CONSULTATION: 01/27/2017 CARDIOLOGY CONSULTATION CONSULTING PHYSICIAN: Param No M.D. REFERRING PHYSICIAN: Wally Waller M.D. REASON FOR CONSULTATION: Shortness of breath. HISTORY OF PRESENT ILLNESS: The patient is a very unfortunate 41-year-old female, who presents to the hospital with shortness of breath. Apparently, she has had hard time breathing for a couple of days, worse with supine position and worse with activities. The patient had no chest pain on arrival to the hospital, but she was found to have blood pressure of 200/64 mmHg. She was having moderate respiratory distress on arrival to the emergency department, was placed on Ambu-bag at the time of arrival. She was diagnosed with acute respiratory failure with hypoxemia and was admitted to intensive care unit for further evaluation and management. Cardiology consultation was made at the request of Dr. Waller for evaluation of slight elevation of troponin I level. The patient has history of end-stage renal disease on hemodialysis on Tuesdays, , and Saturdays. She denies any prior history of coronary artery disease. PAST MEDICAL HISTORY: Hypertension, end-stage renal disease on hemodialysis, and history of diabetes mellitus. PAST SURGICAL HISTORY: AV shunt placement, PermCath placement. MEDICATIONS: List of medication includes atenolol 25 mg p.o. daily, Lexapro 10 mg p.o. daily, Nexium 20 mg p.o. daily, Synthroid 100 mcg p.o. daily, and nifedipine XL 30 mg p.o. daily. ALLERGIES: To penicillin. SOCIAL HISTORY: Denies any tobacco, alcohol, or illicit drug use. FAMILY HISTORY: No premature coronary artery disease in first-degree relatives. REVIEW OF SYSTEMS: A 12-system review done essentially negative except what was mentioned in history of present illness. PHYSICAL EXAMINATION: VITAL SIGNS: Blood pressure was 200/84 mmHg, respirations 20, pulse of 85, temperature 98.8 degrees Fahrenheit, and O2 saturation 100% on 4 L of O2 flow rate. GENERAL: The patient is a very pleasant 41-year-old female, in no apparent respiratory distress at this time, on Venturi mask. Alert and oriented x4. HEENT: Atraumatic and normocephalic. Anicteric. Pupils are equal, round, and reactive to light and accommodation. There is conjunctival pallor. NECK: JVP is about 15 cmH2O. No carotid bruit. Carotid upstrokes 2+ bilaterally. CARDIOVASCULAR: Normal S1, S2. Regular rate and rhythm. No murmurs, gallops, or rubs. PMI is at fourth intercostal space midclavicular line. LUNGS: Some bilateral rhonchi in both bases. Scattered crackles in the base of both lungs. ABDOMEN: Soft, nontender, nondistended. No hepatosplenomegaly. Positive bowel sounds. EXTREMITIES: No evidence of edema, clubbing, or cyanosis. DIAGNOSTIC FINDINGS: A 12-lead electrocardiogram shows sinus rhythm, rate of [address] and T-wave abnormalities. A 2D echocardiography was reviewed and essentially shows normal LV systolic function with LVEF of approximately 55%. There is grade 2 LV diastolic dysfunction or pseudonormal LV physiology consistent with moderately elevated left atrial pressure. High E to E prime ratio also is suggestive of increased intracardiac filling pressures. Pulmonary artery pressure was measured at 55-60 mmHg consistent with severe pulmonary hypertension. LABORATORY FINDINGS: WBC 10.4, hemoglobin 10.2, hematocrit 31.7, and platelet count is 144,000. Sodium was 137, potassium 6.5, chloride 103, bicarbonate 22, BUN of 44, creatinine 7.1, glucose is 120, calcium is 9.4. ProBNP was 615,696. Troponin I was less than 0.012, second was 0.067, and then third was 0.090. Hemoglobin A1c was 5.1. Triglyceride was 214, total cholesterol was 236, LDL 138, HDL 56. ASSESSMENT AND PLAN: The patient is a very unfortunate 41-year-old female, seen in cardiology consultation at the request of Dr. Waller. 1. Elevated troponin I level in this patient is mostly due to acute diastolic heart failure and slight myocarditis as the pattern of the troponin I is not so much compatible with acute plaque rupture. I cannot, however, rule out demand ischemia in the setting of coronary artery disease. The chest x-ray was significant for acute pulmonary edema due to acute diastolic heart failure due to hypertension emergency. The patient has had hemodialysis this morning and we will follow up with chest x-ray and BNP in the morning. 2. Dyslipidemia. The patient will benefit from statin. Her LDL should be less than 100 as she is at very high risk for coronary artery disease in the future. 3. Hypertension emergency. We will continue with combination of hydralazine, metoprolol, and clonidine p.r.n. 4. Hemodialysis is the mainstay of therapy for her hypertension. The total amount of time spent in the intensive care unit of [facility] was 45 minutes. I would like to thank Dr. Waller for the courtesy of this consultation. Param No M.D. DR: Clayton JOB#: [id number] CC:
[2017-01-28] VITALS (18 sets, daily range): BP systolic 110–146; BP diastolic 58–75
[2017-01-28] MEDS: HydrALAZINE 10mg Tab ORAL SCH ×4 (00:35→17:36)
[2017-01-28 04:59] LABS: BASOPHILS % (AUTO) 0.5 % (0.0-2.0); EOSINOPHILS % (AUTO) 2.2 % (0.0-3.0); LYMPHOCYTES % (AUTO) 11.6 % (20.0-45.0); MEAN CORPUSCULAR HEMOGLOBIN 31.5 PG (27.0-31.0); MEAN CORPUSCULAR HGB CONC 33.6 G/DL (32.0-36.0); MEAN CORPUSCULAR VOLUME 94 FL (80-99); MONOCYTES % (AUTO) 5.6 % (1.0-10.0); NEUTROPHILS % (AUTO) 80.2 % (45.0-75.0); PLATELET COUNT 106 K/UL (150-450); RED BLOOD COUNT 2.68 M/UL (4.20-5.40); RED CELL DISTRIBUTION WIDTH 13.1 % (11.6-14.8); WHITE BLOOD COUNT 8.9 K/UL (4.8-10.8)
[2017-01-28 05:15] LABS: ANION GAP 8 mmol/L (5-15); CALCIUM 8.6 MG/DL (8.5-10.1); CARBON DIOXIDE 35 MMOL/L (21-32); CHLORIDE 99 MMOL/L (98-107); GLOMERULAR FILTRATION RATE 7.7 mL/min (>60); POTASSIUM 3.9 MMOL/L (3.5-5.1); SODIUM 142 MMOL/L (136-145)
[2017-01-28] MEDS: NovoLOG Insulin Flexpen SUBQ SCH ×4 (06:00→21:00)
[2017-01-28] MEDS: Zosyn 2.25 gm in D5W 55ml IV SCH ×2 (06:04→14:23)
--- NOTE | 2017-01-28 10:08 | Pulmonolgy Critical Care Note ---
Critical Care - Asmt/Plan Problems: (1) ESRF (end stage renal failure) (2) Fever (3) Acute hyperkalemia (4) Pulmonary edema Respiratory: monitor respiratory rate Cardiac: start pressors, continue pressors Renal: keep IV fluid Infectious Disease: check cultures Gastrointestinal: continue feedings/current rate Endocrine: monitor blood sugar, check TSH Hematologic: monitor H/H Prophylaxis: Heparin Notes Reviewed: cardio, renal Critical Care - Objective Last 24 Hour Vital Signs Date Time Temp Pulse Resp B/P (MAP) Pulse Ox O2 Delivery O2 Flow Rate FiO2 01/28/17 09:00 66 16 113/58 98 Venturi Mask 50 01/28/17 08:06 Venturi Mask 12.0 50 01/28/17 08:06 99 Venturi Mask 12.0 50 01/28/17 08:00 71 01/28/17 08:00 98.1 65 16 120/75 98 Venturi Mask 50 01/28/17 07:00 69 16 130/61 98 Venturi Mask 50 01/28/17 06:04 134/62 01/28/17 06:00 66 14 127/66 100 Venturi Mask 50 01/28/17 05:00 69 16 130/61 100 Venturi Mask 50 01/28/17 04:00 74 01/28/17 04:00 98.6 70 14 134/62 99 Venturi Mask 50 01/28/17 03:00 70 16 135/62 99 Venturi Mask 50 01/28/17 02:00 71 15 125/61 99 Venturi Mask 50 01/28/17 01:00 99.1 70 18 125/72 96 Venturi Mask 50 01/28/17 00:35 146/71 01/28/17 00:00 69 18 146/71 99 Venturi Mask 50 01/28/17 00:00 71 01/27/17 23:00 67 18 121/66 98 Venturi Mask 50 01/27/17 22:00 78 18 111/62 96 Venturi Mask 50 01/27/17 21:00 70 18 117/60 97 Venturi Mask 50 01/27/17 20:48 69 127/53 01/27/17 20:00 99.3 75 16 122/56 98 Venturi Mask 50 01/27/17 20:00 80 01/27/17 19:30 96 Venturi Mask 12.0 50 01/27/17 19:30 Venturi Mask 12.0 50 01/27/17 19:00 69 20 124/53 97 Venturi Mask 50 01/27/17 18:00 67 16 122/55 98 Venturi Mask 50 01/27/17 17:15 145/60 01/27/17 17:00 71 20 136/64 100 Venturi Mask 50 01/27/17 16:00 78 01/27/17 16:00 99.2 72 16 124/52 96 Venturi Mask 50 01/27/17 15:00 85 22 132/55 94 Venturi Mask 50 01/27/17 14:52 Venturi Mask 13.0 50 01/27/17 14:00 69 19 128/55 100 Venturi Mask 50 01/27/17 13:50 97.8 73 16 125/54 Venturi Mask 01/27/17 13:50 Venturi Mask 13.0 01/27/17 13:00 73 23 122/54 98 Venturi Mask 50 01/27/17 12:45 122/54 01/27/17 12:30 66 122/54 01/27/17 12:00 99.2 68 17 140/62 99 Venturi Mask 50 01/27/17 12:00 71 01/27/17 11:00 Venturi Mask 12.0 01/27/17 11:00 75 20 128/61 99 Venturi Mask 50 01/27/17 11:00 99.8 78 16 127/55 Venturi Mask 78 01/27/17 10:16 99 Venturi Mask 12.0 50 01/27/17 10:16 Venturi Mask 12.0 50 Status: awake Condition: critical, grave Lungs: clear, chest wall tender Heart: HR/BP stable, HR/BP unstable Abdomen: soft, active bowel sounds, feeding tube Extremities: no C/C/E, edema Decubiti: location, stage Micro: Microbiology Date/Time Source Procedure Growth Status 01/27/17 13:00 Sputum Induced Gram Stain Pending Resulted 01/27/17 13:00 Sputum Induced Sputum Culture - Preliminary NORMAL UPPER RESPIRATORY JEISON AT 24 ... Resulted Accucheck: 105 Critical Care - Subjective ROS Limited/Unobtainable: No ICU Day: 3 Interval Events: feeling much better FI02: 50 Sputum Amount: None I&O: Intake and Output 01/28/17 01/29/17 19:00 07:00 Intake Total 100 ml Balance 100 ml Intake Oral 100 ml CXR: clear Labs: Laboratory Tests Test 01/27/17 15:15 01/28/17 04:30 Troponin I 0.090 ng/mL (0.000-0.056) 0.057 ng/mL (0.000-0.056) White Blood Count 8.9 K/UL (4.8-10.8) Red Blood Count 2.68 M/UL (4.20-5.40) L Hemoglobin 8.5 G/DL (12.0-16.0) L Hematocrit 25.2 % (37.0-47.0) L Mean Corpuscular Volume 94 FL (80-99) Mean Corpuscular Hemoglobin 31.5 PG (27.0-31.0) H Mean Corpuscular Hemoglobin Concent 33.6 G/DL (32.0-36.0) Red Cell Distribution Width 13.1 % (11.6-14.8) Platelet Count 106 K/UL (150-450) L Mean Platelet Volume 9.0 FL (6.5-10.1) Neutrophils (%) (Auto) 80.2 % (45.0-75.0) H Lymphocytes (%) (Auto) 11.6 % (20.0-45.0) L Monocytes (%) (Auto) 5.6 % (1.0-10.0) Eosinophils (%) (Auto) 2.2 % (0.0-3.0) Basophils (%) (Auto) 0.5 % (0.0-2.0) Sodium Level 142 MMOL/L (136-145) Potassium Level 3.9 MMOL/L (3.5-5.1) Chloride Level 99 MMOL/L (98-107) Carbon Dioxide Level 35 MMOL/L (21-32) H Anion Gap 8 mmol/L (5-15) Blood Urea Nitrogen 32 mg/dL (7-18) H Creatinine 6.0 MG/DL (0.55-1.30) H Estimat Glomerular Filtration Rate 7.7 mL/min (>60) Glucose Level 99 MG/DL (74-106) Calcium Level 8.6 MG/DL (8.5-10.1) Pro-B-Type Natriuretic Peptide [id number] pg/mL (0-125) H SANTOS ROMAN Jan 28, 2017 10:08
[2017-01-28] MEDS: Metoprolol Tartrate 12.5mg TAB ORAL SCH ×2 (10:16→21:21)
[2017-01-28 10:21] LABS: PHOSPHORUS 2.8 MG/DL (2.5-4.9)
--- NOTE | 2017-01-28 10:35 | Infectious Diseases Prog Note ---
Assessment/Plan Assessment/Plan Abx: Zosyn 01/27- Assesment: Pulmonary edema -?PNA -CXR: Bilateral diffuse right greater than left interstitial and alveolar infiltrates versus edema Fever/leukocytosis- possible due to PNA- r/o bacteremia- improving hyperkalemia ESRD on HD Dm2 HTN Plan: -Continue Zosyn #2 pending sputum cx -seems to be tolerating Zosyn; monitor for rash -f/u sputum and blood cultures -Monitor CBC/CMP, temperatures Thank your for this consultation. Will continue to follow along with you. Discussed with RN. Subjective Allergies: Coded Allergies: PENICILLINS (Verified Allergy, Unknown, 01/27/17) hives Subjective aferile in 24hrs at RA now leukocytosis resolved Objective Vital Signs Last 24 Hour Vital Signs Date Time Temp Pulse Resp B/P (MAP) Pulse Ox O2 Delivery O2 Flow Rate FiO2 01/28/17 10:16 72 126/60 01/28/17 10:00 67 17 124/60 97 Room Air 01/28/17 09:00 66 16 113/58 98 Venturi Mask 50 01/28/17 08:06 Venturi Mask 12.0 50 01/28/17 08:06 99 Venturi Mask 12.0 50 01/28/17 08:00 71 01/28/17 08:00 98.1 65 16 120/75 98 Venturi Mask 50 01/28/17 07:00 69 16 130/61 98 Venturi Mask 50 01/28/17 06:04 134/62 01/28/17 06:00 66 14 127/66 100 Venturi Mask 50 01/28/17 05:00 69 16 130/61 100 Venturi Mask 50 01/28/17 04:00 74 01/28/17 04:00 98.6 70 14 134/62 99 Venturi Mask 50 01/28/17 03:00 70 16 135/62 99 Venturi Mask 50 01/28/17 02:00 71 15 125/61 99 Venturi Mask 50 01/28/17 01:00 99.1 70 18 125/72 96 Venturi Mask 50 01/28/17 00:35 146/71 01/28/17 00:00 69 18 146/71 99 Venturi Mask 50 01/28/17 00:00 71 01/27/17 23:00 67 18 121/66 98 Venturi Mask 50 01/27/17 22:00 78 18 111/62 96 Venturi Mask 50 01/27/17 21:00 70 18 117/60 97 Venturi Mask 50 01/27/17 20:48 69 127/53 01/27/17 20:00 99.3 75 16 122/56 98 Venturi Mask 50 01/27/17 20:00 80 01/27/17 19:30 96 Venturi Mask 12.0 50 01/27/17 19:30 Venturi Mask 12.0 50 01/27/17 19:00 69 20 124/53 97 Venturi Mask 50 01/27/17 18:00 67 16 122/55 98 Venturi Mask 50 01/27/17 17:15 145/60 01/27/17 17:00 71 20 136/64 100 Venturi Mask 50 01/27/17 16:00 78 01/27/17 16:00 99.2 72 16 124/52 96 Venturi Mask 50 01/27/17 15:00 85 22 132/55 94 Venturi Mask 50 01/27/17 14:52 Venturi Mask 13.0 50 01/27/17 14:00 69 19 128/55 100 Venturi Mask 50 01/27/17 13:50 97.8 73 16 125/54 Venturi Mask 01/27/17 13:50 Venturi Mask 13.0 01/27/17 13:00 73 23 122/54 98 Venturi Mask 50 01/27/17 12:45 122/54 01/27/17 12:30 66 122/54 01/27/17 12:00 99.2 68 17 140/62 99 Venturi Mask 50 01/27/17 12:00 71 01/27/17 11:00 Venturi Mask 12.0 01/27/17 11:00 75 20 128/61 99 Venturi Mask 50 01/27/17 11:00 99.8 78 16 127/55 Venturi Mask 78 Height (Feet): 5 Height (Inches): 2.00 Weight (Pounds): 113 Objective Status: awake HEENT: atraumatic Lungs: +bibasilar crakcles Abdomen: non-tender, active bowel sounds Extremities: edema Microbiology Date/Time Source Procedure Growth Status 01/27/17 13:00 Sputum Induced Gram Stain - Final Resulted 01/27/17 13:00 Sputum Induced Sputum Culture - Preliminary NORMAL UPPER RESPIRATORY JEISON AT 24 ... Resulted Laboratory Tests Test 01/27/17 15:15 01/28/17 04:30 Troponin I 0.090 ng/mL (0.000-0.056) 0.057 ng/mL (0.000-0.056) White Blood Count 8.9 K/UL (4.8-10.8) Red Blood Count 2.68 M/UL (4.20-5.40) L Hemoglobin 8.5 G/DL (12.0-16.0) L Hematocrit 25.2 % (37.0-47.0) L Mean Corpuscular Volume 94 FL (80-99) Mean Corpuscular Hemoglobin 31.5 PG (27.0-31.0) H Mean Corpuscular Hemoglobin Concent 33.6 G/DL (32.0-36.0) Red Cell Distribution Width 13.1 % (11.6-14.8) Platelet Count 106 K/UL (150-450) L Mean Platelet Volume 9.0 FL (6.5-10.1) Neutrophils (%) (Auto) 80.2 % (45.0-75.0) H Lymphocytes (%) (Auto) 11.6 % (20.0-45.0) L Monocytes (%) (Auto) 5.6 % (1.0-10.0) Eosinophils (%) (Auto) 2.2 % (0.0-3.0) Basophils (%) (Auto) 0.5 % (0.0-2.0) Sodium Level 142 MMOL/L (136-145) Potassium Level 3.9 MMOL/L (3.5-5.1) Chloride Level 99 MMOL/L (98-107) Carbon Dioxide Level 35 MMOL/L (21-32) H Anion Gap 8 mmol/L (5-15) Blood Urea Nitrogen 32 mg/dL (7-18) H Creatinine 6.0 MG/DL (0.55-1.30) H Estimat Glomerular Filtration Rate 7.7 mL/min (>60) Glucose Level 99 MG/DL (74-106) Calcium Level 8.6 MG/DL (8.5-10.1) Phosphorus Level 2.8 MG/DL (2.5-4.9) Magnesium Level 2.0 MG/DL (1.8-2.4) Pro-B-Type Natriuretic Peptide 608198 pg/mL (0-125) H Current Medications Medications (Trade) Dose Ordered Sig/Sarah Route PRN Reason Start Time Stop Time Status Last Admin Dose Admin Acetaminophen (Tylenol) 650 mg Q6H PRN ORAL Mild Pain/Temp > 100.5 01/27/17 07:45 02/26/17 07:44 01/27/17 08:40 Clonidine HCl (Catapres) 0.1 mg Q4H PRN ORAL bp over 160 syst 01/27/17 12:30 02/26/17 12:29 Dextrose (Dextrose 50%) STAT PRN IV Hypoglycemia 01/27/17 07:45 02/26/17 07:44 Hydralazine HCl (Apresoline) 10 mg Q6HR ORAL 01/27/17 12:45 02/26/17 12:44 01/28/17 06:04 Insulin Aspart (NovoLOG) BEFORE MEALS AND HS SUBQ 01/27/17 11:30 02/26/17 11:29 01/27/17 16:49 Metoprolol Tartrate (Lopressor) 12.5 mg Q12HR ORAL 01/27/17 21:00 02/26/17 20:59 01/28/17 10:16 Morphine Sulfate (Morphine Sulfate) 1 mg Q8H PRN IVP For chest pain 01/27/17 08:30 02/03/17 06:59 Nitroglycerin (Ntg) 0.4 mg Q5M PRN SL Prn Chest Pain 01/27/17 07:00 02/26/17 06:59 Ondansetron HCl (Zofran) 4 mg Q6H PRN IVP Nausea & Vomiting 01/27/17 07:00 02/26/17 06:59 Pantoprazole (Protonix) 40 mg ACBREAKFAST ORAL 01/27/17 09:00 02/26/17 08:59 01/28/17 06:04 Piperacillin Sod/ Tazobactam Sod 2.25 gm/Dextrose 55 ml @ 110 mls/hr Q8HR IV 01/27/17 14:00 02/01/17 13:59 01/28/17 06:04 Priscila Mullen M.D. Jan 28, 2017 10:35
--- NOTE | 2017-01-28 11:10 | Diagnostic Imaging Report ---
Indication: Shortness of breath Technique: One view of the chest Comparison: 01/27/2017 Findings: Left axillary surgical clips are again demonstrated. Previously demonstrated parenchymal opacities markedly improved, with only minimal residual perhaps in the retrocardiac region. There is trace blunting of left costophrenic angle. Heart size is normal Impression: Over one day, marked improvement of previously demonstrated parenchymal opacities, likely reflecting improved pulmonary edema, Mely minimal residual Slight left costophrenic angle blunting; suspect trace left pleural fluid
--- NOTE | 2017-01-28 13:31 | Nephrology Progress Note ---
Assessment/Plan Problem List: (1) ESRF (end stage renal failure) (2) Pulmonary edema (3) Acute hyperkalemia Assessment (1) ESRF (end stage renal failure) (2) Fever, leukocytosis (3) Acute hyperkalemia (4) Pulmonary edema (5) Anemia Plan Plan: HD 01/27 and again 01/29 BP control 2D Echo Left ventricular ejection fraction estimated to be 50-55 %. cultures Per orders Subjective ROS Limited/Unobtainable: No Constitutional: Reports: weakness Objective Objective Last 24 Hour Vital Signs Date Time Temp Pulse Resp B/P (MAP) Pulse Ox O2 Delivery O2 Flow Rate FiO2 01/28/17 13:05 147/67 01/28/17 13:00 63 19 139/71 99 Room Air 01/28/17 12:00 65 01/28/17 12:00 98.2 66 18 125/63 96 Room Air 01/28/17 11:00 18 110/67 96 Room Air 01/28/17 10:16 72 126/60 01/28/17 10:00 67 17 124/60 97 Room Air 01/28/17 09:00 66 16 113/58 98 Venturi Mask 50 01/28/17 08:06 Venturi Mask 12.0 50 01/28/17 08:06 99 Venturi Mask 12.0 50 01/28/17 08:00 71 01/28/17 08:00 98.1 65 16 120/75 98 Venturi Mask 50 01/28/17 07:00 69 16 130/61 98 Venturi Mask 50 01/28/17 06:04 134/62 01/28/17 06:00 66 14 127/66 100 Venturi Mask 50 01/28/17 05:00 69 16 130/61 100 Venturi Mask 50 01/28/17 04:00 74 01/28/17 04:00 98.6 70 14 134/62 99 Venturi Mask 50 01/28/17 03:00 70 16 135/62 99 Venturi Mask 50 01/28/17 02:00 71 15 125/61 99 Venturi Mask 50 01/28/17 01:00 99.1 70 18 125/72 96 Venturi Mask 50 01/28/17 00:35 146/71 01/28/17 00:00 69 18 146/71 99 Venturi Mask 50 01/28/17 00:00 71 01/27/17 23:00 67 18 121/66 98 Venturi Mask 50 01/27/17 22:00 78 18 111/62 96 Venturi Mask 50 01/27/17 21:00 70 18 117/60 97 Venturi Mask 50 01/27/17 20:48 69 127/53 01/27/17 20:00 99.3 75 16 122/56 98 Venturi Mask 50 01/27/17 20:00 80 01/27/17 19:30 96 Venturi Mask 12.0 50 01/27/17 19:30 Venturi Mask 12.0 50 01/27/17 19:00 69 20 124/53 97 Venturi Mask 50 01/27/17 18:00 67 16 122/55 98 Venturi Mask 50 01/27/17 17:15 145/60 01/27/17 17:00 71 20 136/64 100 Venturi Mask 50 01/27/17 16:00 78 01/27/17 16:00 99.2 72 16 124/52 96 Venturi Mask 50 01/27/17 15:00 85 22 132/55 94 Venturi Mask 50 01/27/17 14:52 Venturi Mask 13.0 50 01/27/17 14:00 69 19 128/55 100 Venturi Mask 50 01/27/17 13:50 97.8 73 16 125/54 Venturi Mask 01/27/17 13:50 Venturi Mask 13.0 Intake and Output 01/28/17 01/29/17 19:00 07:00 Intake Total 170 ml Output Total 1 ml Balance 169 ml Intake Oral 170 ml Output Stool Total 1 ml # Voids 2 # Bowel Movements 2 Laboratory Tests 01/27/17 15:15: Troponin I 0.090H 01/28/17 04:30: Troponin I 0.057H, White Blood Count 8.9, Red Blood Count 2.68L, Hemoglobin 8.5L , Hematocrit 25.2L, Mean Corpuscular Volume 94, Mean Corpuscular Hemoglobin 31.5H, Mean Corpuscular Hemoglobin Concent 33.6, Red Cell Distribution Width 13.1, Platelet Count 106L, Mean Platelet Volume 9.0, Neutrophils (%) (Auto) 80.2H, Lymphocytes (%) (Auto) 11.6L, Monocytes (%) (Auto) 5.6, Eosinophils (%) ( Auto) 2.2, Basophils (%) (Auto) 0.5, Sodium Level 142, Potassium Level 3.9, Chloride Level 99, Carbon Dioxide Level 35H, Anion Gap 8, Blood Urea Nitrogen 32H, Creatinine 6.0H, Estimat Glomerular Filtration Rate 7.7, Glucose Level 99, Calcium Level 8.6, Phosphorus Level 2.8, Magnesium Level 2.0, Pro-B-Type Natriuretic Peptide [id number] Height (Feet): 5 Height (Inches): 2.00 Weight (Pounds): 113 General Appearance: no apparent distress Cardiovascular: normal rate Respiratory/Chest: decreased breath sounds Abdomen: soft CHUCKY LOGAN Jan 28, 2017 13:31
[2017-01-28] MEDS ORDERED: Nitroglycerin Subl 0.4mg tab SL PRN (16:00)
[2017-01-28] MEDS ORDERED: Morphine Sulfate 2mg/ml Inj IVP PRN (16:30)
[2017-01-28 18:28] LABS: FOLIC ACID 15.1 NG/ML (8.6-58.9)
[2017-01-28 18:29] LABS: BAND NEUTROPHILS % (MANUAL) 3 % (0-8); EOSINOPHILS % (MANUAL) 2 % (0-3); LYMPHOCYTES % (MANUAL) 15 % (20-45); NEUTROPHILS % (MANUAL) 74 % (45-75); TOTAL CELLS COUNTED 100
[2017-01-28 18:30] LABS: ANISOCYTOSIS 1+; BASOPHILS % (MANUAL) 0 % (0-2); HYPOCHROMASIA 1+; PATH BLOOD SMEAR/OMC SENT TO PATHOLOGIST; PLATELET ESTIMATE DECREASED; PLATELET MORPHOLOGY NORMAL
[2017-01-28 19:11] LABS: FERRITIN > 2000 NG/ML (8-388); LACTATE DEHYDROGENASE 327 U/L (81-234); URIC ACID 2.3 MG/DL (2.6-7.2)
--- NOTE | 2017-01-28 19:20 | Cardiology Progress Note ---
Assessment/Plan Assessment/Plan 1. Elevated troponin I level in this patient is mostly due to acute diastolic heart failure and slight myocarditis as the pattern of the troponin I is not so much compatible with acute plaque rupture. I cannot, however, rule out demand ischemia in the setting of coronary artery disease. The chest x-ray was significant for acute pulmonary edema due to acute diastolic heart failure due to hypertension emergency. 2. Dyslipidemia. Start Atorvastatin, target LDL <100 as she is at very high risk for coronary artery disease. 3. Hypertension emergency, well controlled BP, will continue with combination of hydralazine, metoprolol, and clonidine p.r.n. 4. Acute HFpEF, responded well to HD, BNP is downtrending. Subjective Subjective Sinus rhythm at 74. Transferred out of ICU. Objective Last 24 Hour Vital Signs Date Time Temp Pulse Resp B/P (MAP) Pulse Ox O2 Delivery O2 Flow Rate FiO2 01/28/17 17:36 127/62 01/28/17 17:24 71 01/28/17 15:55 97.5 69 19 127/62 98 Room Air 01/28/17 15:00 67 15 130/64 97 Room Air 01/28/17 14:00 70 19 130/65 99 Room Air 01/28/17 13:05 147/67 01/28/17 13:00 63 19 139/71 99 Room Air 01/28/17 12:00 65 01/28/17 12:00 98.2 66 18 125/63 96 Room Air 01/28/17 11:00 18 110/67 96 Room Air 01/28/17 10:16 72 126/60 01/28/17 10:00 67 17 124/60 97 Room Air 01/28/17 09:00 66 16 113/58 98 Venturi Mask 50 01/28/17 08:06 Venturi Mask 12.0 50 01/28/17 08:06 99 Venturi Mask 12.0 50 01/28/17 08:00 71 01/28/17 08:00 98.1 65 16 120/75 98 Venturi Mask 50 01/28/17 07:00 69 16 130/61 98 Venturi Mask 50 01/28/17 06:04 134/62 01/28/17 06:00 66 14 127/66 100 Venturi Mask 50 01/28/17 05:00 69 16 130/61 100 Venturi Mask 50 01/28/17 04:00 74 01/28/17 04:00 98.6 70 14 134/62 99 Venturi Mask 50 01/28/17 03:00 70 16 135/62 99 Venturi Mask 50 01/28/17 02:00 71 15 125/61 99 Venturi Mask 50 01/28/17 01:00 99.1 70 18 125/72 96 Venturi Mask 50 01/28/17 00:35 146/71 01/28/17 00:00 69 18 146/71 99 Venturi Mask 50 01/28/17 00:00 71 01/27/17 23:00 67 18 121/66 98 Venturi Mask 50 01/27/17 22:00 78 18 111/62 96 Venturi Mask 50 01/27/17 21:00 70 18 117/60 97 Venturi Mask 50 01/27/17 20:48 69 127/53 01/27/17 20:00 99.3 75 16 122/56 98 Venturi Mask 50 01/27/17 20:00 80 01/27/17 19:30 96 Venturi Mask 12.0 50 01/27/17 19:30 Venturi Mask 12.0 50 Intake and Output 01/28/17 01/29/17 19:00 07:00 Intake Total 360 ml Output Total 1 ml Balance 359 ml Intake Oral 360 ml Output Stool Total 1 ml # Voids 2 # Bowel Movements 2 2D Echo: LVEF 55%, Grade II LVDD or pseudo-normal LV physio, RVSP 58 mmHg. Laboratory Tests Test 01/28/17 04:30 01/28/17 17:45 White Blood Count 8.9 K/UL (4.8-10.8) Red Blood Count 2.68 M/UL (4.20-5.40) L Hemoglobin 8.5 G/DL (12.0-16.0) L Hematocrit 25.2 % (37.0-47.0) L Mean Corpuscular Volume 94 FL (80-99) Mean Corpuscular Hemoglobin 31.5 PG (27.0-31.0) H Mean Corpuscular Hemoglobin Concent 33.6 G/DL (32.0-36.0) Red Cell Distribution Width 13.1 % (11.6-14.8) Platelet Count 106 K/UL (150-450) L Mean Platelet Volume 9.0 FL (6.5-10.1) Neutrophils (%) (Auto) 80.2 % (45.0-75.0) H Lymphocytes (%) (Auto) 11.6 % (20.0-45.0) L Monocytes (%) (Auto) 5.6 % (1.0-10.0) Eosinophils (%) (Auto) 2.2 % (0.0-3.0) Basophils (%) (Auto) 0.5 % (0.0-2.0) Differential Total Cells Counted 100 Neutrophils % (Manual) 74 % (45-75) Lymphocytes % (Manual) 15 % (20-45) L Monocytes % (Manual) 6 % (1-10) Eosinophils % (Manual) 2 % (0-3) Basophils % (Manual) 0 % (0-2) Band Neutrophils 3 % (0-8) Platelet Estimate Decreased L Platelet Morphology Normal Hypochromasia 1+ Anisocytosis 1+ Reticulocyte Count Pending Sodium Level 142 MMOL/L (136-145) Potassium Level 3.9 MMOL/L (3.5-5.1) Chloride Level 99 MMOL/L (98-107) Carbon Dioxide Level 35 MMOL/L (21-32) H Anion Gap 8 mmol/L (5-15) Blood Urea Nitrogen 32 mg/dL (7-18) H Creatinine 6.0 MG/DL (0.55-1.30) H Estimat Glomerular Filtration Rate 7.7 mL/min (>60) Glucose Level 99 MG/DL (74-106) Uric Acid Pending Calcium Level 8.6 MG/DL (8.5-10.1) Phosphorus Level 2.8 MG/DL (2.5-4.9) Magnesium Level 2.0 MG/DL (1.8-2.4) Ferritin Pending Lactate Dehydrogenase Pending Troponin I 0.057 ng/mL (0.000-0.056) Pro-B-Type Natriuretic Peptide 295637 pg/mL (0-125) H Vitamin B12 Level 465 PG/ML (193-986) Folate 15.1 NG/ML (8.6-58.9) Thyroid Stimulating Hormone (TSH) Pending HIV (1&2) Antibody Rapid Negative (NEGATIVE) Hemoglobin A Pending Hemoglobin A2 Pending Hemoglobin C Pending Hemoglobin F () Pending Hemoglobin S Pending Variant Hemoglobin Pending Hemoglobin Electrophoresis Interp Pending Hemoglobin Interpretation Pending Hemoglobin Solubility Pending Fibrinogen 532 mg/dL (200-400) H Alpha Fetoprotein Pending Methylmalonic Acid Pending Hepatitis A IgM Antibody Pending Hepatitis B Surface Antigen Pending Hepatitis B Core IgM Antibody Pending Hepatitis C Antibody Pending Microbiology Date/Time Source Procedure Growth Status 01/27/17 13:00 Sputum Induced Gram Stain - Final Resulted 01/27/17 13:00 Sputum Induced Sputum Culture - Preliminary NORMAL UPPER RESPIRATORY JEISON AT 24 ... Resulted Objective GENERAL: The patient is a very pleasant 41-year-old female, in no apparent respiratory distress at this time, on Venturi mask. Alert and oriented x4. HEENT: Atraumatic and normocephalic. Anicteric. Pupils are equal, round, and reactive to light and accommodation. There is conjunctival pallor. NECK: JVP is about 15 cmH2O. No carotid bruit. Carotid upstrokes 2+ bilaterally. CARDIOVASCULAR: Normal S1, S2. Regular rate and rhythm. No murmurs, gallops, or rubs. PMI is at fourth intercostal space at left midclavicular line. LUNGS: Some bilateral rhonchi in both bases. Scattered crackles in the base of both lungs. ABDOMEN: Soft, nontender, nondistended. No hepatosplenomegaly. Positive bowel sounds. EXTREMITIES: No evidence of edema, clubbing, or cyanosis. JANE ADKINS Jan 28, 2017 19:20
[2017-01-28] MEDS ORDERED: Atorvastatin 20mg tab ORAL SCH (21:00)
[2017-01-28] MEDS: Piperacillin/Tazobactam 2.25 GM in D5W 55 ML IV SCH (21:25)
--- NOTE | 2017-01-28 23:08 | General Progress Note ---
Assessment/Plan Status: stable Assessment/Plan 1. Hypoxemic respiratory failure. 2. Pulmonary edema. 3. Hypertension. 4. Diabetes. 5. Acute hyperkalemia. 6. Diastolic _ HF 7. Gastrointestinal and deep venous thrombosis prophylaxis. 8. Troponin leakage 9. Cytopenia Notes from following services are reviwed: Nephrology Pulmonary ID Hem/onch is consulted Ok to transfer to Step Down/tele Subjective Constitutional: Reports: malaise HEENT: Reports: no symptoms Cardiovascular: Reports: no symptoms Respiratory: Reports: shortness of breath Allergies: Coded Allergies: PENICILLINS (Verified Allergy, Unknown, 01/27/17) hives Objective Last 24 Hour Vital Signs Date Time Temp Pulse Resp B/P (MAP) Pulse Ox O2 Delivery O2 Flow Rate FiO2 01/28/17 21:21 75 127/67 01/28/17 20:00 97.5 75 16 127/67 95 Room Air 12.0 50 01/28/17 20:00 74 01/28/17 17:36 127/62 01/28/17 17:24 71 01/28/17 15:55 97.5 69 19 127/62 98 Room Air 01/28/17 15:00 67 15 130/64 97 Room Air 01/28/17 14:00 70 19 130/65 99 Room Air 01/28/17 13:05 147/67 01/28/17 13:00 63 19 139/71 99 Room Air 01/28/17 12:00 65 01/28/17 12:00 98.2 66 18 125/63 96 Room Air 01/28/17 11:00 18 110/67 96 Room Air 01/28/17 10:16 72 126/60 01/28/17 10:00 67 17 124/60 97 Room Air 01/28/17 09:00 66 16 113/58 98 Venturi Mask 50 01/28/17 08:06 Venturi Mask 12.0 50 01/28/17 08:06 99 Venturi Mask 12.0 50 01/28/17 08:00 71 01/28/17 08:00 98.1 65 16 120/75 98 Venturi Mask 50 01/28/17 07:00 69 16 130/61 98 Venturi Mask 50 01/28/17 06:04 134/62 01/28/17 06:00 66 14 127/66 100 Venturi Mask 50 01/28/17 05:00 69 16 130/61 100 Venturi Mask 50 01/28/17 04:00 74 01/28/17 04:00 98.6 70 14 134/62 99 Venturi Mask 50 01/28/17 03:00 70 16 135/62 99 Venturi Mask 50 01/28/17 02:00 71 15 125/61 99 Venturi Mask 50 01/28/17 01:00 99.1 70 18 125/72 96 Venturi Mask 50 01/28/17 00:35 146/71 01/28/17 00:00 69 18 146/71 99 Venturi Mask 50 01/28/17 00:00 71 Intake and Output 01/28/17 01/29/17 19:00 07:00 Intake Total 360 ml Output Total 1 ml Balance 359 ml Intake Oral 360 ml Output Stool Total 1 ml # Voids 2 # Bowel Movements 2 Laboratory Tests 01/28/17 04:30: White Blood Count 8.9, Red Blood Count 2.68L, Hemoglobin 8.5L, Hematocrit 25.2L , Mean Corpuscular Volume 94, Mean Corpuscular Hemoglobin 31.5H, Mean Corpuscular Hemoglobin Concent 33.6, Red Cell Distribution Width 13.1, Platelet Count 106L, Mean Platelet Volume 9.0, Neutrophils (%) (Auto) 80.2H, Lymphocytes (%) (Auto) 11.6L, Monocytes (%) (Auto) 5.6, Eosinophils (%) (Auto) 2.2, Basophils (%) (Auto) 0.5, Differential Total Cells Counted 100, Neutrophils % ( Manual) 74, Lymphocytes % (Manual) 15L, Monocytes % (Manual) 6, Eosinophils % ( Manual) 2, Basophils % (Manual) 0, Band Neutrophils 3, Platelet Estimate DecreasedL, Platelet Morphology Normal, Hypochromasia 1+, Anisocytosis 1+, Reticulocyte Count 1.3, Sodium Level 142, Potassium Level 3.9, Chloride Level 99 , Carbon Dioxide Level 35H, Anion Gap 8, Blood Urea Nitrogen 32H, Creatinine 6.0H, Estimat Glomerular Filtration Rate 7.7, Glucose Level 99, Uric Acid 2.3L, Calcium Level 8.6, Phosphorus Level 2.8, Magnesium Level 2.0, Ferritin > 2000H, Lactate Dehydrogenase 327H, Troponin I 0.057H, Pro-B-Type Natriuretic Peptide 146072C, Vitamin B12 Level 465, Folate 15.1, Thyroid Stimulating Hormone (TSH) 1.720, HIV (1&2) Antibody Rapid Negative 01/28/17 17:45: Hemoglobin A [Pending], Hemoglobin A2 [Pending], Hemoglobin C [Pending], Hemoglobin F () [Pending], Hemoglobin S [Pending], Variant Hemoglobin [ Pending], Hemoglobin Electrophoresis Interp [Pending], Hemoglobin Interpretation [Pending], Hemoglobin Solubility [Pending], Fibrinogen 532H, Alpha Fetoprotein [Pending], Methylmalonic Acid [Pending], Hepatitis A IgM Antibody [Pending], Hepatitis B Surface Antigen [Pending], Hepatitis B Core IgM Antibody [Pending], Hepatitis C Antibody [Pending] Height (Feet): 5 Height (Inches): 2.00 Weight (Pounds): 113 General Appearance: no apparent distress EENT: PERRL/EOMI Neck: supple Cardiovascular: normal rate Respiratory/Chest: crackles/rales Abdomen: soft Extremities: non-tender 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
[2017-01-29] VITALS: BP 136/63
[2017-01-29] MEDS: HydrALAZINE 10mg Tab ORAL SCH ×4 (00:27→17:44)
[2017-01-29 04:00] VITALS: BP 127/72
[2017-01-29] MEDS: Piperacillin/Tazobactam 2.25 GM in D5W 55 ML IV SCH ×3 (06:00→22:00)
[2017-01-29] MEDS: NovoLOG Insulin Flexpen SUBQ SCH ×4 (06:17→21:00)
[2017-01-29 08:00] VITALS: BP 156/82
--- NOTE | 2017-01-29 08:15 | Consultation ---
DATE OF CONSULTATION: 01/28/2017 HEMATOLOGY/ONCOLOGY CONSULTATION CONSULTING PHYSICIAN: Ray Lopez M.D. REFERRING PHYSICIAN: Wally Waller M.D. ATTENDING PHYSICIAN: Wally Waller M.D. REASON FOR CONSULTATION: Evaluation of bicytopenia. IDENTIFYING DATA: Dear Dr. Waller, The patient is a pleasant 41-year-old female with past medical history significant for worsening shortness of breath in supine position. No chest pain noted at this time, however, noted to have elevated blood pressure, admitted for further evaluation and treatment of hypoxia and respiratory distress. Cardiology service was consulted as well as Pulmonary team. In addition, noted to have thrombocytopenia as well as anemia; therefore, Hematology service was consulted for further evaluation and treatment. PAST MEDICAL HISTORY: End-stage renal disease, hypertension, hemodialysis, and history of diabetes mellitus. PAST SURGICAL HISTORY: Port-A-Cath placement and AV shunt placement. MEDICATIONS: Atenolol, Synthroid, Nexium, Lexapro, . ALLERGIES: Penicillin. SOCIAL HISTORY: No alcohol, tobacco, or illicit drug use. FAMILY HISTORY: No family history disease. REVIEW OF SYSTEMS: CONSTITUTIONAL: No fever, chills, or night sweats. SKIN: No rashes, bumps, or itching. HEENT: No headache, hearing or vision changes. BREASTS: No lumps, pain, or discharge. PULMONARY: No cough or sputum. Shortness of breath. GASTROINTESTINAL: No nausea, vomiting, or diarrhea. GENITOURINARY: No dysuria, frequency, or urgency. MUSCULOSKELETAL: No joint swelling, muscle pain, or trauma. PHYSICAL EXAMINATION: VITAL SIGNS: Reviewed. GENERAL: No acute distress. PULMONARY: Decreased breath sounds. CARDIOVASCULAR: Regular rate. No S3 or S4. ABDOMEN: Soft and nontender. EXTREMITIES: There is 1+ edema. LABORATORY AND DIAGNOSTIC DATA: WBC 8.9, hemoglobin 8.5, and hematocrit 25, and platelets 106,000. Troponin 0.057. AST 42 and ALT 22. Imaging reviewed. X-ray of the chest shows mild improvement, demonstrated pulmonary opacities . ASSESSMENT AND RECOMMENDATIONS: 1. Bicytopenia. Obtain anemia workup as well as thrombocytopenia workup. ultrasound of the abdomen, potentially could be due to viral infection as well as antibiotic use, on Zosyn. 2. Anemia secondary to kidney disease. Continue to closely monitor. Anemia workup noted to be . 3. Leukocytosis, infection. 4. End-stage renal disease, on hemodialysis. 5. Diabetes mellitus type 2. 6. Hypertension, currently is better controlled. 7. Pneumonia, currently improved. Ray Lopez M.D. DR: Matt JOB#: [id number] CC:
[2017-01-29] MEDS: Metoprolol Tartrate 12.5mg TAB ORAL SCH ×2 (09:00→21:00)
--- NOTE | 2017-01-29 09:28 | Nephrology Progress Note ---
Assessment/Plan Problem List: (1) ESRF (end stage renal failure) (2) Pulmonary edema (3) Acute hyperkalemia Assessment stable (1) ESRF (end stage renal failure) (2) Fever, leukocytosis (3) Acute hyperkalemia (4) Pulmonary edema (5) Anemia Plan Plan: HD 01/27 and again 01/29 BP control 2D Echo Left ventricular ejection fraction estimated to be 50-55 %. cultures Per orders Patient wants to be channelled to a dialysis unit close to here- currently she goes to [facility] ! Info given. CM informed Subjective ROS Limited/Unobtainable: No Constitutional: Reports: malaise Objective Objective Last 24 Hour Vital Signs Date Time Temp Pulse Resp B/P (MAP) Pulse Ox O2 Delivery O2 Flow Rate FiO2 01/29/17 08:00 97.5 67 18 156/82 95 01/29/17 06:00 127/72 01/29/17 04:00 67 01/29/17 04:00 97.7 70 16 127/72 95 Room Air 01/29/17 00:27 136/63 01/29/17 00:00 97.7 69 16 136/63 95 Room Air 01/29/17 00:00 71 01/28/17 21:21 75 127/67 01/28/17 20:00 97.5 75 16 127/67 95 Room Air 01/28/17 20:00 74 01/28/17 17:36 127/62 01/28/17 17:24 71 01/28/17 15:55 97.5 69 19 127/62 98 Room Air 01/28/17 15:00 67 15 130/64 97 Room Air 01/28/17 14:00 70 19 130/65 99 Room Air 01/28/17 13:05 147/67 01/28/17 13:00 63 19 139/71 99 Room Air 01/28/17 12:00 65 01/28/17 12:00 98.2 66 18 125/63 96 Room Air 01/28/17 11:00 18 110/67 96 Room Air 01/28/17 10:16 72 126/60 01/28/17 10:00 67 17 124/60 97 Room Air Laboratory Tests 01/28/17 17:45: Hemoglobin A [Pending], Hemoglobin A2 [Pending], Hemoglobin C [Pending], Hemoglobin F () [Pending], Hemoglobin S [Pending], Variant Hemoglobin [ Pending], Hemoglobin Electrophoresis Interp [Pending], Hemoglobin Interpretation [Pending], Hemoglobin Solubility [Pending], Fibrinogen 532H, Alpha Fetoprotein [Pending], Methylmalonic Acid [Pending], Hepatitis A IgM Antibody [Pending], Hepatitis B Surface Antigen [Pending], Hepatitis B Core IgM Antibody [Pending], Hepatitis C Antibody [Pending] Height (Feet): 5 Height (Inches): 2.00 Weight (Pounds): 109 General Appearance: no apparent distress Respiratory/Chest: decreased breath sounds Abdomen: soft Objective no other changes CHUCKY LOGAN Jan 29, 2017 09:28
[2017-01-29 10:27] LABS: OTHERS PATHOLOGIST COMMENT
[2017-01-29] MEDS ORDERED: PPD Tuberculin Skin Test 5TU IDERMAL ONE (11:00)
--- NOTE | 2017-01-29 11:13 | Infectious Diseases Prog Note ---
Assessment/Plan Assessment/Plan Abx: Zosyn 01/27- Assesment: Pulmonary edema- improving -?PNA -CXR 01/28: Over one day, marked improvement of previously demonstrated parenchymal opacities, likely reflecting improved pulmonary edema, Mely minimal residual. Slight left costophrenic angle blunting; suspect trace left pleural fluid -CXR: Bilateral diffuse right greater than left interstitial and alveolar infiltrates versus edema -sp Cx: +4 GNB, +4 normal joce Fever/leukocytosis- possible due to PNA-resolved -BCx NTD hyperkalemia ESRD on HD Dm2 HTN Plan: -Continue Zosyn #3 pending sputum cx -seems to be tolerating Zosyn; monitor for rash -f/u sputum and blood cultures -Monitor CBC/CMP, temperatures Thank your for this consultation. Will continue to follow along with you. Discussed with RN. Subjective Allergies: Coded Allergies: PENICILLINS (Verified Allergy, Unknown, 01/27/17) hives Subjective aferile in 48hrs trasnferred to the floors sp cx grwong GNB Objective Vital Signs Last 24 Hour Vital Signs Date Time Temp Pulse Resp B/P (MAP) Pulse Ox O2 Delivery O2 Flow Rate FiO2 01/29/17 09:00 67 156/82 01/29/17 08:00 97.5 67 18 156/82 95 01/29/17 06:00 127/72 01/29/17 04:00 67 01/29/17 04:00 97.7 70 16 127/72 95 Room Air 01/29/17 00:27 136/63 01/29/17 00:00 97.7 69 16 136/63 95 Room Air 01/29/17 00:00 71 01/28/17 21:21 75 127/67 01/28/17 20:00 97.5 75 16 127/67 95 Room Air 01/28/17 20:00 74 01/28/17 17:36 127/62 01/28/17 17:24 71 01/28/17 15:55 97.5 69 19 127/62 98 Room Air 01/28/17 15:00 67 15 130/64 97 Room Air 01/28/17 14:00 70 19 130/65 99 Room Air 01/28/17 13:05 147/67 01/28/17 13:00 63 19 139/71 99 Room Air 01/28/17 12:00 65 01/28/17 12:00 98.2 66 18 125/63 96 Room Air Height (Feet): 5 Height (Inches): 2.00 Weight (Pounds): 109 Objective Status: awake HEENT: atraumatic Lungs: +bibasilar crakcles Abdomen: non-tender, active bowel sounds Extremities: edema Microbiology Date/Time Source Procedure Growth Status 01/27/17 15:20 Blood Blood Culture - Preliminary NO GROWTH AFTER 24 HOURS Resulted 01/27/17 15:15 Blood Blood Culture - Preliminary NO GROWTH AFTER 24 HOURS Resulted 01/27/17 13:00 Sputum Induced Gram Stain - Final Resulted 01/27/17 13:00 Sputum Culture - Preliminary Gram Negative Bacillus 1 Usual Upper Respiratory Jcoe Resulted 01/27/17 02:15 Nasal Nares MRSA Culture - Final NO METHICILLIN RESISTANT STAPH AUREUS... Complete 01/27/17 02:15 Rectum VRE Culture - Final NO VANCOMYCIN RESISTANT ENTEROCOCCUS ... Complete Laboratory Tests Test 01/28/17 17:45 01/29/17 04:30 Hemoglobin A Pending Hemoglobin A2 Pending Hemoglobin C Pending Hemoglobin F () Pending Hemoglobin S Pending Variant Hemoglobin Pending Hemoglobin Electrophoresis Interp Pending Hemoglobin Interpretation Pending Hemoglobin Solubility Pending Fibrinogen 532 mg/dL (200-400) H Alpha Fetoprotein Pending Methylmalonic Acid Pending Hepatitis A IgM Antibody Negative (Negative) Hepatitis B Surface Antigen Negative (Negative) Pending Hepatitis B Core IgM Antibody Negative (Negative) Hepatitis C Antibody <0.1 s/co ratio Pending Hepatitis B Surface Antibody, Quant Pending Current Medications Medications (Trade) Dose Ordered Sig/Sarah Route PRN Reason Start Time Stop Time Status Last Admin Dose Admin Acetaminophen (Tylenol) 650 mg Q6H PRN ORAL Mild Pain/Temp > 100.5 01/28/17 16:45 02/26/17 16:44 Atorvastatin Calcium (Lipitor) 20 mg BEDTIME ORAL 01/28/17 21:00 02/27/17 20:59 01/28/17 21:21 Clonidine HCl (Catapres) 0.1 mg Q4H PRN ORAL SBP > 160 01/28/17 16:30 02/26/17 12:29 Dextrose (Dextrose 50%) STAT PRN IV Hypoglycemia 01/28/17 16:45 02/27/17 16:44 Hydralazine HCl (Apresoline) 10 mg Q6HR ORAL 01/28/17 18:00 02/26/17 12:44 01/29/17 00:27 Insulin Aspart (NovoLOG) BEFORE MEALS AND HS SUBQ 01/28/17 17:30 02/26/17 17:29 Metoprolol Tartrate (Lopressor) 12.5 mg Q12HR ORAL 01/28/17 21:00 02/26/17 20:59 01/28/17 21:21 Morphine Sulfate (Morphine Sulfate) 1 mg Q8H PRN IVP For chest pain--2nd line agent 01/28/17 16:30 02/03/17 06:59 Nitroglycerin (Ntg) 0.4 mg Q5MIN X 3 DOSES PRN SL Prn Chest Pain 01/28/17 16:00 02/27/17 15:59 Ondansetron HCl (Zofran) 4 mg Q6H PRN IVP Nausea & Vomiting 01/28/17 16:45 02/26/17 16:44 Pantoprazole (Protonix) 40 mg ACBREAKFAST ORAL 01/29/17 06:30 02/26/17 08:59 01/29/17 06:01 Piperacillin Sod/ Tazobactam Sod 2.25 gm/Dextrose 55 ml @ 110 mls/hr Q8HR IV 01/28/17 22:00 02/01/17 13:59 01/29/17 06:00 Priscila Mullen M.D. Jan 29, 2017 11:13
[2017-01-29 11:40] VITALS: BP 157/63
--- NOTE | 2017-01-29 14:01 | Diagnostic Imaging Report ---
Indication: MASS abdominal pain, nausea, dialysis patient Technique: Pearson-scale and duplex images of the upper abdomen were obtained Comparison: None Findings: Gallbladder is unremarkable, without stones, wall thickening, nor pericholecystic fluid. Sonographic Cruz's sign is negative. Common bile duct measures 4 mm in diameter. No intrahepatic biliary ductal dilatation. Liver demonstrates normal echogenicity, no focal abnormality. Portal vein and hepatic veins are patent. Pancreas is unremarkable. Spleen is unremarkable. Left kidney measures 6.6 cm in length. Right kidney measures 4.5 cm length. Both kidneys demonstrate markedly increased echogenicity There is no hydronephrosis. There is a 14 mm ossification in the lower pole of left kidney . Non-aneurysmal abdominal aorta . Impression: Negative for gallstones or dilated ducts Echogenic atrophic kidneys, consistent with chronic renal disease Possible left lower pole intrarenal calculus. Negative for hydronephrosis
--- NOTE | 2017-01-29 14:50 | Pulmonology Progress Note ---
Assessment/Plan Problems: (1) Fever (2) Respiratory failure with hypoxia (3) Hypertensive emergency (4) Acute hyperkalemia (5) ESRF (end stage renal failure) (6) Pulmonary edema Assessment/Plan improving cultures still pending pulmonary edema resolved continue abx as ordered by ID med/surg dc planning Subjective ROS Limited/Unobtainable: No Constitutional: Reports: no symptoms HEENT: Repors: no symptoms Respiratory: Reports: no symptoms Allergies: Coded Allergies: PENICILLINS (Verified Allergy, Unknown, 01/27/17) hives Objective Last 24 Hour Vital Signs Date Time Temp Pulse Resp B/P (MAP) Pulse Ox O2 Delivery O2 Flow Rate FiO2 01/29/17 12:00 157/63 01/29/17 12:00 66 01/29/17 11:40 97.2 69 18 157/63 100 01/29/17 09:00 67 156/82 01/29/17 08:00 97.5 67 18 156/82 95 01/29/17 08:00 70 01/29/17 07:20 97 Venturi Mask 12.0 50 01/29/17 07:20 Venturi Mask 12.0 50 01/29/17 06:00 127/72 01/29/17 04:00 67 01/29/17 04:00 97.7 70 16 127/72 95 Room Air 01/29/17 00:27 136/63 01/29/17 00:00 97.7 69 16 136/63 95 Room Air 01/29/17 00:00 71 01/28/17 21:21 75 127/67 01/28/17 20:00 97.5 75 16 127/67 95 Room Air 01/28/17 20:00 74 01/28/17 17:36 127/62 01/28/17 17:24 71 01/28/17 15:55 97.5 69 19 127/62 98 Room Air 01/28/17 15:00 67 15 130/64 97 Room Air General Appearance: WD/WN HEENT: normocephalic, atraumatic Respiratory/Chest: chest wall non-tender, lungs clear Breasts: no masses Abdomen: normal bowel sounds, soft, non tender Genitourinary: normal external genitalia Extremities: no cyanosis 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 Complete 01/27/17 02:15 Rectum VRE Culture - Final NO VANCOMYCIN RESISTANT ENTEROCOCCUS ... Complete Laboratory Tests 01/28/17 17:45: Hemoglobin A [Pending], Hemoglobin A2 [Pending], Hemoglobin C [Pending], Hemoglobin F () [Pending], Hemoglobin S [Pending], Variant Hemoglobin [ Pending], Hemoglobin Electrophoresis Interp [Pending], Hemoglobin Interpretation [Pending], Hemoglobin Solubility [Pending], Fibrinogen 532H, Alpha Fetoprotein 1.1, Methylmalonic Acid [Pending], Hepatitis A IgM Antibody Negative, Hepatitis B Surface Antigen Negative, Hepatitis B Core IgM Antibody Negative, Hepatitis C Antibody <0.1 01/29/17 04:30: Hepatitis B Surface Antigen [Pending], Hepatitis C Antibody [Pending], Hepatitis B Surface Antibody, Quant [Pending] Current Medications Medications (Trade) Dose Ordered Sig/Sarah Route PRN Reason Start Time Stop Time Status Last Admin Dose Admin Acetaminophen (Tylenol) 650 mg Q6H PRN ORAL Mild Pain/Temp > 100.5 01/28/17 16:45 02/26/17 16:44 Atorvastatin Calcium (Lipitor) 20 mg BEDTIME ORAL 01/28/17 21:00 02/27/17 20:59 01/28/17 21:21 Clonidine HCl (Catapres) 0.1 mg Q4H PRN ORAL SBP > 160 01/28/17 16:30 02/26/17 12:29 Dextrose (Dextrose 50%) STAT PRN IV Hypoglycemia 01/28/17 16:45 02/27/17 16:44 Hydralazine HCl (Apresoline) 10 mg Q6HR ORAL 01/28/17 18:00 02/26/17 12:44 01/29/17 00:27 Insulin Aspart (NovoLOG) BEFORE MEALS AND HS SUBQ 01/28/17 17:30 02/26/17 17:29 Metoprolol Tartrate (Lopressor) 12.5 mg Q12HR ORAL 01/28/17 21:00 02/26/17 20:59 01/28/17 21:21 Morphine Sulfate (Morphine Sulfate) 1 mg Q8H PRN IVP For chest pain--2nd line agent 01/28/17 16:30 02/03/17 06:59 Nitroglycerin (Ntg) 0.4 mg Q5MIN X 3 DOSES PRN SL Prn Chest Pain 01/28/17 16:00 02/27/17 15:59 Ondansetron HCl (Zofran) 4 mg Q6H PRN IVP Nausea & Vomiting 01/28/17 16:45 02/26/17 16:44 Pantoprazole (Protonix) 40 mg ACBREAKFAST ORAL 01/29/17 06:30 02/26/17 08:59 01/29/17 06:01 Piperacillin Sod/ Tazobactam Sod 2.25 gm/Dextrose 55 ml @ 110 mls/hr Q8HR IV 01/28/17 22:00 02/01/17 13:59 01/29/17 13:41 SANTOS ROMAN Jan 29, 2017 14:50
--- NOTE | 2017-01-29 15:32 | General Progress Note ---
Assessment/Plan Assessment/Plan ASSESSMENT AND RECOMMENDATIONS: 1. Thrombocytopenia, likely 2/2 infection vs use of Zosyn. -> abd US negative for liver disease 2. Anemia secondary to kidney disease. Continue to closely monitor. 3. Leukocytosis,resolved. 4. End-stage renal disease, on hemodialysis. 5. Diabetes mellitus type 2. 6. Hypertension, currently is better controlled. 7. Pneumonia, currently improved. Subjective Allergies: Coded Allergies: PENICILLINS (Verified Allergy, Unknown, 01/27/17) hives All Systems: reviewed and negative except above Subjective afebrile, no chills reported Objective Last 24 Hour Vital Signs Date Time Temp Pulse Resp B/P (MAP) Pulse Ox O2 Delivery O2 Flow Rate FiO2 01/29/17 12:00 157/63 01/29/17 12:00 66 01/29/17 11:40 97.2 69 18 157/63 100 01/29/17 09:00 67 156/82 01/29/17 08:00 97.5 67 18 156/82 95 01/29/17 08:00 70 01/29/17 07:20 97 Venturi Mask 12.0 50 01/29/17 07:20 Venturi Mask 12.0 50 01/29/17 06:00 127/72 01/29/17 04:00 67 01/29/17 04:00 97.7 70 16 127/72 95 Room Air 01/29/17 00:27 136/63 01/29/17 00:00 97.7 69 16 136/63 95 Room Air 01/29/17 00:00 71 01/28/17 21:21 75 127/67 01/28/17 20:00 97.5 75 16 127/67 95 Room Air 01/28/17 20:00 74 01/28/17 17:36 127/62 01/28/17 17:24 71 01/28/17 15:55 97.5 69 19 127/62 98 Room Air Laboratory Tests 01/28/17 17:45: Hemoglobin A [Pending], Hemoglobin A2 [Pending], Hemoglobin C [Pending], Hemoglobin F () [Pending], Hemoglobin S [Pending], Variant Hemoglobin [ Pending], Hemoglobin Electrophoresis Interp [Pending], Hemoglobin Interpretation [Pending], Hemoglobin Solubility [Pending], Fibrinogen 532H, Alpha Fetoprotein 1.1, Methylmalonic Acid [Pending], Hepatitis A IgM Antibody Negative, Hepatitis B Surface Antigen Negative, Hepatitis B Core IgM Antibody Negative, Hepatitis C Antibody <0.1 01/29/17 04:30: Hepatitis B Surface Antigen [Pending], Hepatitis C Antibody [Pending], Hepatitis B Surface Antibody, Quant [Pending] Height (Feet): 5 Height (Inches): 2.00 Weight (Pounds): 109 General Appearance: no apparent distress EENT: normal ENT inspection Neck: normal alignment Cardiovascular: normal peripheral pulses 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
[2017-01-29 15:38] VITALS: BP 115/60
[2017-01-29] MEDS ORDERED: Tubing IV Secondary IV ONE (16:25)
[2017-01-29] MEDS ORDERED: NS 500ML ONE (16:25)
[2017-01-29] MEDS ORDERED: Morphine Sulfate 2mg/ml Inj IVP PRN (16:30)
[2017-01-29] MEDS ORDERED: Nitroglycerin Subl 0.4mg tab SL PRN (16:30)
[2017-01-29 19:53] VITALS: BP 138/81
[2017-01-29] MEDS: Atorvastatin 20mg tab ORAL SCH (21:55)
--- NOTE | 2017-01-29 23:35 | Cardiology Progress Note ---
Assessment/Plan Assessment/Plan 1. Elevated troponin I level in this patient is mostly due to acute diastolic heart failure and slight myocarditis as the pattern of the troponin I is not so much compatible with acute plaque rupture. I cannot, however, rule out demand ischemia in the setting of coronary artery disease. The chest x-ray was significant for acute pulmonary edema due to acute diastolic heart failure due to hypertension emergency. 2. Dyslipidemia., continue Atorvastatin, target LDL <100 as she is at very high risk for coronary artery disease. 3. Hypertension emergency, well controlled BP, will continue with combination of hydralazine, metoprolol, and clonidine p.r.n. 4. Acute HFpEF, responded well to HD, BNP in am. Subjective Subjective Denies chest pain or SOB. Transferred to the med-surg unit. Objective Last 24 Hour Vital Signs Date Time Temp Pulse Resp B/P (MAP) Pulse Ox O2 Delivery O2 Flow Rate FiO2 01/29/17 21:10 Room Air 01/29/17 21:00 80 106/61 01/29/17 20:00 94 Room Air 01/29/17 19:53 99.2 71 20 138/81 99 Room Air 01/29/17 19:30 Room Air 21 01/29/17 18:40 Room Air 01/29/17 17:44 115/60 01/29/17 15:51 66 01/29/17 15:38 97.9 64 18 115/60 98 01/29/17 12:00 157/63 01/29/17 12:00 66 01/29/17 11:40 97.2 69 18 157/63 100 01/29/17 09:00 67 156/82 01/29/17 08:00 97.5 67 18 156/82 95 01/29/17 08:00 70 01/29/17 07:20 97 Venturi Mask 12.0 50 01/29/17 07:20 Venturi Mask 12.0 50 01/29/17 06:00 127/72 01/29/17 04:00 67 01/29/17 04:00 97.7 70 16 127/72 95 Room Air 01/29/17 00:27 136/63 01/29/17 00:00 97.7 69 16 136/63 95 Room Air 01/29/17 00:00 71 Intake and Output 01/29/17 01/30/17 19:00 07:00 Intake Total 350 ml Balance 350 ml Intake Oral 240 ml IV Total 110 ml # Voids 1 2D Echo: LVEF 55%, Grade II LVDD or pseudo-normal LV physio, RVSP 58 mmHg. Laboratory Tests Test 01/29/17 04:30 Hepatitis B Surface Antigen Pending Hepatitis B Surface Antibody, Quant Pending Hepatitis C Antibody Pending Microbiology Date/Time Source Procedure Growth Status 01/27/17 15:20 Blood Blood Culture - Preliminary NO GROWTH AFTER 24 HOURS Resulted 01/27/17 15:15 Blood Blood Culture - Preliminary NO GROWTH AFTER 24 HOURS Resulted 01/27/17 13:00 Sputum Induced Gram Stain - Final Resulted 01/27/17 13:00 Sputum Culture - Preliminary Gram Negative Bacillus 1 Usual Upper Respiratory Kisha Resulted 01/27/17 02:15 Nasal Nares MRSA Culture - Final NO METHICILLIN RESISTANT STAPH AUREUS... Complete 01/27/17 02:15 Rectum VRE Culture - Final NO VANCOMYCIN RESISTANT ENTEROCOCCUS ... Complete Objective GENERAL: The patient is a very pleasant 41-year-old female, in no apparent respiratory distress at this reinaldo, Alert and oriented x4. HEENT: Atraumatic and normocephalic. Anicteric. Pupils are equal, round, and reactive to light and accommodation. There is conjunctival pallor. NECK: JVP is about 15 cmH2O. No carotid bruit. Carotid upstrokes 2+ bilaterally. CARDIOVASCULAR: Normal S1, S2. Regular rate and rhythm. No murmurs, gallops, or rubs. PMI is at fourth intercostal space at left midclavicular line. LUNGS: Some bilateral rhonchi in both bases. Scattered crackles in the base of both lungs. ABDOMEN: Soft, nontender, nondistended. No hepatosplenomegaly. Positive bowel sounds. EXTREMITIES: No evidence of edema, clubbing, or cyanosis. JANE ADKINS Jan 29, 2017 23:35
[2017-01-30] VITALS: BP 126/63
[2017-01-30] MEDS: HydrALAZINE 10mg Tab ORAL SCH ×2 (00:45→06:34)
[2017-01-30 04:00] VITALS: BP 130/67
[2017-01-30] MEDS: Piperacillin/Tazobactam 2.25 GM in D5W 55 ML IV SCH (06:00)
[2017-01-30] MEDS: NovoLOG Insulin Flexpen SUBQ SCH ×4 (06:30→20:49)
[2017-01-30 08:29] VITALS: BP 123/73
[2017-01-30] MEDS: Metoprolol Tartrate 12.5mg TAB ORAL SCH (08:48)
[2017-01-30] MEDS ORDERED: Aztreonam Inj 0.5 GM in D5W 55 ML IVPB SCH (09:00)
--- NOTE | 2017-01-30 09:39 | Infectious Diseases Prog Note ---
Assessment/Plan Assessment/Plan Abx: Zosyn 01/27- Assesment: Pulmonary edema-resolving -Possible PNA -CXR 01/28: Over one day, marked improvement of previously demonstrated parenchymal opacities, likely reflecting improved pulmonary edema, Mely minimal residual. Slight left costophrenic angle blunting; suspect trace left pleural fluid -CXR: Bilateral diffuse right greater than left interstitial and alveolar infiltrates versus edema -sp Cx: +4 K. pneumonia (R Amp, otherwise S), +4 normal joce Fever/leukocytosis- possible due to PNA-resolved -BCx NTD hyperkalemia ESRD on HD Dm2 HTN Plan: -Switch Zosyn #4/7 to Cefdinir 300mg q48hr.; ok to discharge home on PO regimen -of note at day 4 developed some itch with zosyn administration -f/u final blood cultures -Monitor CBC/CMP, temperatures Thank your for this consultation. Will continue to follow along with you. Discussed with RN and Dr Waller Subjective Allergies: Coded Allergies: PENICILLINS (Verified Allergy, Unknown, 01/30/17) hives 01/30/17: ITCHING WITH ZOSYN Subjective aferile in 72hrs feeling better Bcx NTD Objective Vital Signs Last 24 Hour Vital Signs Date Time Temp Pulse Resp B/P (MAP) Pulse Ox O2 Delivery O2 Flow Rate FiO2 01/30/17 08:48 77 123/73 01/30/17 08:29 98.1 77 20 123/73 97 Room Air 01/30/17 06:34 130/67 01/30/17 04:00 98.8 72 18 130/67 95 Room Air 01/30/17 00:45 106/61 01/30/17 00:00 98.9 68 18 126/63 96 Room Air 01/29/17 21:10 Room Air 01/29/17 21:00 80 106/61 01/29/17 20:00 94 Room Air 21 01/29/17 19:53 99.2 71 20 138/81 99 Room Air 01/29/17 19:30 Room Air 21 01/29/17 18:40 Room Air 01/29/17 17:44 115/60 01/29/17 15:51 66 01/29/17 15:38 97.9 64 18 115/60 98 01/29/17 12:00 157/63 01/29/17 12:00 66 01/29/17 11:40 97.2 69 18 157/63 100 Height (Feet): 5 Height (Inches): 2.00 Weight (Pounds): 108 Objective Status: awake HEENT: atraumatic Lungs: +bibasilar crakcles Abdomen: non-tender, active bowel sounds Extremities: edema Microbiology Date/Time Source Procedure Growth Status 01/27/17 15:20 Blood Blood Culture - Preliminary NO GROWTH AFTER 48 HOURS Resulted 01/27/17 15:15 Blood Blood Culture - Preliminary NO GROWTH AFTER 48 HOURS Resulted 01/27/17 13:00 Sputum Induced Gram Stain - Final Complete 01/27/17 13:00 Sputum Culture - Final Klebsiella Pneumoniae Usual Upper Respiratory Joce Complete Laboratory Tests Test 01/30/17 04:35 Pro-B-Type Natriuretic Peptide > 97825 pg/mL (0-125) H Current Medications Medications (Trade) Dose Ordered Sig/Sarah Route PRN Reason Start Time Stop Time Status Last Admin Dose Admin Acetaminophen (Tylenol) 650 mg Q6H PRN ORAL Mild Pain/Temp > 100.5 01/29/17 16:45 02/26/17 16:44 01/29/17 21:56 Atorvastatin Calcium (Lipitor) 20 mg BEDTIME ORAL 01/29/17 21:00 02/27/17 20:59 01/29/17 21:55 Aztreonam 0.5 gm/ Dextrose 55 ml @ 110 mls/hr Q12HR IVPB 01/30/17 09:00 02/06/17 08:59 Clonidine HCl (Catapres) 0.1 mg Q4H PRN ORAL SBP > 160 01/29/17 16:30 02/26/17 12:29 Dextrose (Dextrose 50%) STAT PRN IV Hypoglycemia 01/29/17 16:45 02/27/17 16:44 Hydralazine HCl (Apresoline) 10 mg Q6HR ORAL 01/29/17 18:00 02/26/17 12:44 01/30/17 06:34 Insulin Aspart (NovoLOG) BEFORE MEALS AND HS SUBQ 01/29/17 17:30 02/26/17 17:29 Metoprolol Tartrate (Lopressor) 12.5 mg Q12HR ORAL 01/29/17 21:00 02/26/17 20:59 01/30/17 08:48 Morphine Sulfate (Morphine Sulfate) 1 mg Q8H PRN IVP For chest pain--2nd line agent 01/29/17 16:30 02/03/17 06:59 Nitroglycerin (Ntg) 0.4 mg Q5MIN X 3 DOSES PRN SL Chest Pain--1st line agent 01/29/17 16:30 02/27/17 15:59 Ondansetron HCl (Zofran) 4 mg Q6H PRN IVP Nausea & Vomiting 01/29/17 16:45 02/26/17 16:44 Pantoprazole (Protonix) 40 mg ACBREAKFAST ORAL 01/30/17 06:30 02/26/17 08:59 01/30/17 06:34 Priscila Mullen M.D. Jan 30, 2017 09:39
[2017-01-30] MEDS ORDERED: Cefdinir 300mg cap ORAL SCH (11:00)
--- NOTE | 2017-01-30 11:12 | General Progress Note ---
Assessment/Plan Status: stable Assessment/Plan 1. Hypoxemic respiratory failure. 2. Pulmonary edema. 3. Hypertension. 4. Diabetes. 5. Acute hyperkalemia. 6. Diastolic _ HF 7. Gastrointestinal and deep venous thrombosis prophylaxis. 8. Troponin leakage 9. Cytopenia Notes from following services are reviwed: Nephrology Pulmonary ID stable. Once HD setting as op is established, medically is stable to DC with [facility] Subjective ROS Limited/Unobtainable: No Constitutional: Reports: no symptoms HEENT: Reports: no symptoms Cardiovascular: Reports: no symptoms Allergies: Coded Allergies: PENICILLINS (Verified Allergy, Unknown, 01/30/17) hives 01/30/17: ITCHING WITH ZOSYN Objective Last 24 Hour Vital Signs Date Time Temp Pulse Resp B/P (MAP) Pulse Ox O2 Delivery O2 Flow Rate FiO2 01/30/17 08:48 77 123/73 01/30/17 08:29 98.1 77 20 123/73 97 Room Air 01/30/17 06:34 130/67 01/30/17 04:00 98.8 72 18 130/67 95 Room Air 01/30/17 00:45 106/61 01/30/17 00:00 98.9 68 18 126/63 96 Room Air 01/29/17 21:10 Room Air 01/29/17 21:00 80 106/61 01/29/17 20:00 94 Room Air 21 01/29/17 19:53 99.2 71 20 138/81 99 Room Air 01/29/17 19:30 Room Air 21 01/29/17 18:40 Room Air 01/29/17 17:44 115/60 01/29/17 15:51 66 01/29/17 15:38 97.9 64 18 115/60 98 01/29/17 12:00 157/63 01/29/17 12:00 66 01/29/17 11:40 97.2 69 18 157/63 100 Intake and Output 01/30/17 01/31/17 19:00 07:00 Intake Total 360 ml Balance 360 ml Intake Oral 360 ml Laboratory Tests 01/30/17 04:35: Pro-B-Type Natriuretic Peptide > 71950C Height (Feet): 5 Height (Inches): 2.00 Weight (Pounds): 108 General Appearance: no apparent distress EENT: PERRL/EOMI Neck: supple Cardiovascular: normal rate Respiratory/Chest: lungs clear Abdomen: soft Extremities: non-tender 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
--- NOTE | 2017-01-30 11:49 | Nephrology Progress Note ---
Assessment/Plan Problem List: (1) ESRF (end stage renal failure) (2) Pulmonary edema (3) Acute hyperkalemia Assessment stable (1) ESRF (end stage renal failure) (2) Fever, leukocytosis (3) Acute hyperkalemia (4) Pulmonary edema (5) Anemia Plan Plan: HD 01/27 and again 01/29 and then 01/31 BP control. meds adjusted 2D Echo Left ventricular ejection fraction estimated to be 50-55 %. cultures: sputum Klebsiella Per orders Patient wants to be channelled to a dialysis unit close to here- currently she goes to [place] ! Info given. CM informed Subjective ROS Limited/Unobtainable: No Constitutional: Reports: malaise Objective Objective Last 24 Hour Vital Signs Date Time Temp Pulse Resp B/P (MAP) Pulse Ox O2 Delivery O2 Flow Rate FiO2 01/30/17 08:48 77 123/73 01/30/17 08:29 98.1 77 20 123/73 97 Room Air 01/30/17 06:34 130/67 01/30/17 04:00 98.8 72 18 130/67 95 Room Air 01/30/17 00:45 106/61 01/30/17 00:00 98.9 68 18 126/63 96 Room Air 01/29/17 21:10 Room Air 01/29/17 21:00 80 106/61 01/29/17 20:00 94 Room Air 21 01/29/17 19:53 99.2 71 20 138/81 99 Room Air 01/29/17 19:30 Room Air 21 01/29/17 18:40 Room Air 01/29/17 17:44 115/60 01/29/17 15:51 66 01/29/17 15:38 97.9 64 18 115/60 98 01/29/17 12:00 157/63 01/29/17 12:00 66 Intake and Output 01/30/17 01/31/17 19:00 07:00 Intake Total 360 ml Balance 360 ml Intake Oral 360 ml Laboratory Tests 01/30/17 04:35: Pro-B-Type Natriuretic Peptide > 18436Y Height (Feet): 5 Height (Inches): 2.00 Weight (Pounds): 108 General Appearance: no apparent distress Cardiovascular: normal rate Respiratory/Chest: decreased breath sounds Abdomen: soft Objective no other changes CHUCKY LOGAN 30, 2017 11:49
[2017-01-30 12:31] VITALS: BP 131/73
[2017-01-30] MEDS: HydrALAZINE 25mg tab ORAL SCH ×2 (13:09→20:48)
[2017-01-30] MEDS ORDERED: NS 500ML ONE (13:45)
[2017-01-30] MEDS ORDERED: Tubing IV Secondary IV ONE ×2 (13:45)
[2017-01-30 15:18] LABS: HEPATITIS C VIRUS AB/CEDARS 0.12 S/CO (<0.80)
--- NOTE | 2017-01-30 15:50 | Pulmonology Progress Note ---
Assessment/Plan Problems: (1) Fever (2) Respiratory failure with hypoxia (3) Hypertensive emergency (4) Acute hyperkalemia (5) ESRF (end stage renal failure) (6) Pulmonary edema Assessment/Plan improving cultures still pending pulmonary edema resolved continue abx as ordered by ID med/surg dc planning Subjective ROS Limited/Unobtainable: No Constitutional: Reports: no symptoms HEENT: Repors: no symptoms Respiratory: Reports: no symptoms Cardiovascular: Reports: no symptoms Allergies: Coded Allergies: PENICILLINS (Verified Allergy, Unknown, 01/30/17) hives 01/30/17: ITCHING WITH ZOSYN Objective Last 24 Hour Vital Signs Date Time Temp Pulse Resp B/P (MAP) Pulse Ox O2 Delivery O2 Flow Rate FiO2 01/30/17 13:09 131/73 01/30/17 12:31 97.3 71 20 131/73 97 Room Air 01/30/17 08:48 77 123/73 01/30/17 08:29 98.1 77 20 123/73 97 Room Air 01/30/17 07:00 Room Air 01/30/17 07:00 100 Room Air 01/30/17 06:34 130/67 01/30/17 04:00 98.8 72 18 130/67 95 Room Air 01/30/17 00:45 106/61 01/30/17 00:00 98.9 68 18 126/63 96 Room Air 01/29/17 21:10 Room Air 01/29/17 21:00 80 106/61 01/29/17 20:00 94 Room Air 01/29/17 19:53 99.2 71 20 138/81 99 Room Air 01/29/17 19:30 Room Air 01/29/17 18:40 Room Air 01/29/17 17:44 115/60 01/29/17 15:51 66 Intake and Output 01/30/17 01/31/17 19:00 07:00 Intake Total 600 ml Balance 600 ml Intake Oral 600 ml General Appearance: WD/WN HEENT: normocephalic, atraumatic Respiratory/Chest: chest wall non-tender, normal breath sounds Breasts: no masses Cardiovascular: normal peripheral pulses Abdomen: normal bowel sounds, soft, non tender Genitourinary: normal external genitalia Extremities: no clubbing Skin: no rash Laboratory Tests 01/30/17 04:35: Pro-B-Type Natriuretic Peptide > 42170E Current Medications Medications (Trade) Dose Ordered Sig/Sarah Route PRN Reason Start Time Stop Time Status Last Admin Dose Admin Acetaminophen (Tylenol) 650 mg Q6H PRN ORAL Mild Pain/Temp > 100.5 01/29/17 16:45 02/26/17 16:44 01/29/17 21:56 Atorvastatin Calcium (Lipitor) 20 mg BEDTIME ORAL 01/29/17 21:00 02/27/17 20:59 01/29/17 21:55 Cefdinir (Cefdinir) 300 mg EVERY OTHER DAY ORAL 01/30/17 11:00 02/06/17 10:59 01/30/17 11:12 Clonidine HCl (Catapres) 0.1 mg Q4H PRN ORAL SBP > 160 01/29/17 16:30 02/26/17 12:29 Dextrose (Dextrose 50%) STAT PRN IV Hypoglycemia 01/29/17 16:45 02/27/17 16:44 Hydralazine HCl (Apresoline) 25 mg Q8HR ORAL 01/30/17 14:00 02/26/17 12:44 01/30/17 13:09 Insulin Aspart (NovoLOG) BEFORE MEALS AND HS SUBQ 01/29/17 17:30 02/26/17 17:29 Metoprolol Tartrate (Lopressor) 25 mg Q12HR ORAL 01/30/17 21:00 03/01/17 20:59 Morphine Sulfate (Morphine Sulfate) 1 mg Q8H PRN IVP For chest pain--2nd line agent 01/29/17 16:30 02/03/17 06:59 Nitroglycerin (Ntg) 0.4 mg Q5MIN X 3 DOSES PRN SL Chest Pain--1st line agent 01/29/17 16:30 02/27/17 15:59 Ondansetron HCl (Zofran) 4 mg Q6H PRN IVP Nausea & Vomiting 01/29/17 16:45 02/26/17 16:44 Pantoprazole (Protonix) 40 mg ACBREAKFAST ORAL 01/30/17 06:30 02/26/17 08:59 01/30/17 06:34 SANTOS ROMAN Jan 30, 2017 15:50
[2017-01-30 15:52] VITALS: BP 136/65
--- NOTE | 2017-01-30 16:20 | General Progress Note ---
Assessment/Plan Assessment/Plan ASSESSMENT AND RECOMMENDATIONS: 1. Thrombocytopenia, likely 2/2 infection vs medications --> abd US negative for liver disease --> continue to monitor closely 2. Anemia secondary to kidney disease. Continue to closely monitor. 3. Leukocytosis, resolved. 4. End-stage renal disease, on hemodialysis. 5. Diabetes mellitus type 2. Subjective Allergies: Coded Allergies: PENICILLINS (Verified Allergy, Unknown, 01/30/17) hives 01/30/17: ITCHING WITH ZOSYN All Systems: reviewed and negative except above Subjective no acute events Objective Last 24 Hour Vital Signs Date Time Temp Pulse Resp B/P (MAP) Pulse Ox O2 Delivery O2 Flow Rate FiO2 01/30/17 15:52 98.2 82 20 136/65 97 01/30/17 13:09 131/73 01/30/17 12:31 97.3 71 20 131/73 97 Room Air 01/30/17 08:48 77 123/73 01/30/17 08:29 98.1 77 20 123/73 97 Room Air 01/30/17 07:00 Room Air 01/30/17 07:00 100 Room Air 01/30/17 06:34 130/67 01/30/17 04:00 98.8 72 18 130/67 95 Room Air 01/30/17 00:45 106/61 01/30/17 00:00 98.9 68 18 126/63 96 Room Air 01/29/17 21:10 Room Air 01/29/17 21:00 80 106/61 01/29/17 20:00 94 Room Air 01/29/17 19:53 99.2 71 20 138/81 99 Room Air 01/29/17 19:30 Room Air 01/29/17 18:40 Room Air 01/29/17 17:44 115/60 Intake and Output 01/30/17 01/31/17 19:00 07:00 Intake Total 600 ml Balance 600 ml Intake Oral 600 ml Laboratory Tests 01/30/17 04:35: Pro-B-Type Natriuretic Peptide > 99749Q Height (Feet): 5 Height (Inches): 2.00 Weight (Pounds): 108 General Appearance: no apparent distress EENT: normal ENT inspection Neck: normal alignment Cardiovascular: no gallop/murmur Respiratory/Chest: chest wall non-tender Extremities: normal inspection Edema: trace edema Ray Lopez Jan 30, 2017 16:20
[2017-01-30 20:00] VITALS: BP 141/71
[2017-01-30] MEDS: Metoprolol 25mg tab ORAL SCH (20:48)
[2017-01-30] MEDS: Atorvastatin 20mg tab ORAL SCH (20:48)
--- NOTE | 2017-01-30 23:54 | Cardiology Progress Note ---
Assessment/Plan Assessment/Plan 1. Elevated troponin I level in this patient is mostly due to acute diastolic heart failure and slight myocarditis as the pattern of the troponin I not compatible with acute plaque rupture. 2. Dyslipidemia., continue Atorvastatin, target LDL <100 as she is at very high risk for coronary artery disease. 3. Hypertension emergency, well controlled BP, continue hydralazine and metoprolol, continue clonidine p.r.n. 4. Acute HFpEF, responded well to HD, BNP downtrending, ~33935. Subjective Subjective Denies chest pain or SOB. Not on the telemetry unit. Objective Last 24 Hour Vital Signs Date Time Temp Pulse Resp B/P (MAP) Pulse Ox O2 Delivery O2 Flow Rate FiO2 01/30/17 20:48 71 141/71 01/30/17 20:48 141/71 01/30/17 20:00 97.9 71 20 141/71 99 Room Air 01/30/17 15:52 98.2 82 20 136/65 97 01/30/17 13:09 131/73 01/30/17 12:31 97.3 71 20 131/73 97 Room Air 01/30/17 08:48 77 123/73 01/30/17 08:29 98.1 77 20 123/73 97 Room Air 01/30/17 07:00 Room Air 21 01/30/17 07:00 100 Room Air 21 01/30/17 06:34 130/67 01/30/17 04:00 98.8 72 18 130/67 95 Room Air 01/30/17 00:45 106/61 01/30/17 00:00 98.9 68 18 126/63 96 Room Air Intake and Output 01/30/17 01/31/17 19:00 07:00 Intake Total 600 ml Balance 600 ml Intake Oral 600 ml # Voids 2 2D Echo: LVEF 55%, Grade II LVDD or pseudo-normal LV physio, RVSP 58 mmHg. Laboratory Tests Test 01/30/17 04:35 Pro-B-Type Natriuretic Peptide > 11728 pg/mL (0-125) H Objective GENERAL: The patient is a very pleasant 41-year-old female, in no apparent respiratory distress at this time, Alert and oriented x4. HEENT: Atraumatic and normocephalic. Anicteric. Pupils are equal, round, and reactive to light and accommodation. There is conjunctival pallor. NECK: JVP is about 15 cmH2O. No carotid bruit. Carotid upstrokes 2+ bilaterally. CARDIOVASCULAR: Normal S1, S2. Regular rate and rhythm. No murmurs, gallops, or rubs. PMI is at fourth intercostal space at left midclavicular line. LUNGS: Some bilateral rhonchi in both bases. Scattered crackles in the base of both lungs. ABDOMEN: Soft, nontender, nondistended. No hepatosplenomegaly. Positive bowel sounds. EXTREMITIES: No evidence of edema, clubbing, or cyanosis. JANE ADKINS Jan 30, 2017 23:54
[2017-01-31] VITALS (8 sets, daily range): BP systolic 104–139; BP diastolic 61–74
[2017-01-31] MEDS: HydrALAZINE 25mg tab ORAL SCH ×3 (06:21→21:39)
[2017-01-31] MEDS: NovoLOG Insulin Flexpen SUBQ SCH ×4 (06:22→21:41)
[2017-01-31 07:01] LABS: MEAN CORPUSCULAR HEMOGLOBIN 31.8 PG (27.0-31.0); MEAN CORPUSCULAR VOLUME 96 FL (80-99); MEAN PLATELET VOLUME 7.3 FL (6.5-10.1); PLATELET COUNT 148 K/UL (150-450); RED BLOOD COUNT 2.46 M/UL (4.20-5.40); RED CELL DISTRIBUTION WIDTH 13.9 % (11.6-14.8)
[2017-01-31 07:31] LABS: ALANINE AMINOTRANSFERASE 10 U/L (12-78); ALBUMIN/GLOBULIN RATIO 0.9 (1.0-2.7); ANION GAP 9 mmol/L (5-15); ASPARTATE AMINO TRANSFERASE 20 U/L (15-37); CALCIUM 9.1 MG/DL (8.5-10.1); CARBON DIOXIDE 34 MMOL/L (21-32); CHLORIDE 97 MMOL/L (98-107); CREATININE 9.2 MG/DL (0.55-1.30); CRP QUANT 4.2 mg/dL (0.00-0.90); GLOMERULAR FILTRATION RATE 4.7 mL/min (>60); POTASSIUM 3.4 MMOL/L (3.5-5.1); SODIUM 140 MMOL/L (136-145); TOTAL PROTEIN 6.9 G/DL (6.4-8.2); URIC ACID 5.5 MG/DL (2.6-7.2)
[2017-01-31 07:38] LABS: BILIRUBIN,DIRECT 0.3 MG/DL (0.0-0.3)
--- NOTE | 2017-01-31 07:44 | Pulmonology Progress Note ---
Assessment/Plan Assessment/Plan ASSESSMENT Acute hypoxemic RF 2 to pulmonary edema -resolved pulmonary edema-resolved acute diastolic CHF likely due to HTN urgency HTN urgency -resolved elevated troponin likely due to diastolic heart failure and slight myocarditis Acute hyperkalemia resolved ESRD, on HD likely PNA with Klebsiella Moderate to severe pulmonary HTN Hyperlipidemia DM type 2 Moderate TR moderate MR anemia of chronic renal disease acute anemia requiring blood transfusion thrombocytopenia likely due to infection vs Zosyn PLAN OF CARE MS floor O2 HHN prn fup CXR with markedly improved pulmonary edema ECHO with pEF 50-55% and RVSP of 58 c/w moderate to severe pulmonary HTN, as well as moderate TR and MR Cardio follows troponin trending down per cardio elevated troponin 2 to CHF exacerbation and slight myocarditis, Lipid panel with elevated TC and LDL Continue statin, check lipid panel in 3 months, goal to keep LDL below 100 BP management with Hydralazine and BB, stable now BS management with SS of insulin, HgA1c -5.1 at goal Nephro follows, HD as per nephro, monitor renal parameters, lytes, K stable ID follows, sputum cx + Klebsiella, blood cx negative, on abx, afebrile, Heme follows transfuse 1 u PRBC today thrombocytopenia per heme 2 to infectious process vs medication ( Zosyn) hepatitis panel negative abdominal US no evidence of gallstones, no dilated ducts Dc plan when outpt HD established case discussed and evaluated by supervising physician Subjective Allergies: Coded Allergies: PENICILLINS (Verified Allergy, Unknown, 01/30/17) hives 01/30/17: ITCHING WITH ZOSYN Subjective denies CP, SOB HH down to 7.8/23.7 HD pending for today Objective Last 24 Hour Vital Signs Date Time Temp Pulse Resp B/P (MAP) Pulse Ox O2 Delivery O2 Flow Rate FiO2 01/31/17 06:21 139/71 01/31/17 04:00 97.7 67 18 139/71 95 Room Air 01/31/17 00:00 98.1 72 20 132/70 95 Room Air 01/30/17 20:48 71 141/71 01/30/17 20:48 141/71 01/30/17 20:00 97.9 71 20 141/71 99 Room Air 01/30/17 15:52 98.2 82 20 136/65 97 01/30/17 13:09 131/73 01/30/17 12:31 97.3 71 20 131/73 97 Room Air 01/30/17 08:48 77 123/73 01/30/17 08:29 98.1 77 20 123/73 97 Room Air General Appearance: no acute distress, other - thin A/A/O x 3 Sami speaking female in NAD HEENT: normocephalic, atraumatic, anicteric, mucous membranes moist, PERRL Respiratory/Chest: chest wall non-tender, lungs clear, normal breath sounds, no respiratory distress, no accessory muscle use Cardiovascular: normal peripheral pulses, normal rate, regular rhythm, no JVD, other - RUE AV shunt + thrill/bruit Abdomen: normal bowel sounds, soft, non tender, non distended Genitourinary: normal external genitalia Extremities: no edema, pedal pulses normal 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: no motor/sensory deficits, alert, oriented x 3, responsive, normal mood/affect Musculoskeletal: normal muscle bulk Laboratory Tests 01/31/17 06:50: White Blood Count 5.0, Red Blood Count 2.46L, Hemoglobin 7.8L, Hematocrit 23.7L , Mean Corpuscular Volume 96, Mean Corpuscular Hemoglobin 31.8H, Mean Corpuscular Hemoglobin Concent 33.0, Red Cell Distribution Width 13.9, Platelet Count 148L, Mean Platelet Volume 7.3, Neutrophils (%) (Auto) , Lymphocytes (%) ( Auto) , Monocytes (%) (Auto) , Eosinophils (%) (Auto) , Basophils (%) (Auto) , Neutrophils % (Manual) [Pending], Lymphocytes % (Manual) [Pending], Platelet Estimate [Pending], Platelet Morphology [Pending], Sodium Level 140, Potassium Level 3.4L, Chloride Level 97L, Carbon Dioxide Level 34H, Anion Gap 9, Blood Urea Nitrogen 45H, Creatinine 9.2H, Estimat Glomerular Filtration Rate 4.7, Glucose Level 91, Uric Acid 5.5, Calcium Level 9.1, Phosphorus Level 5.0H, Total Bilirubin 1.9H, Direct Bilirubin 0.3, Aspartate Amino Transf (AST/SGOT) 20 , Alanine Aminotransferase (ALT/SGPT) 10L, Alkaline Phosphatase 112, Troponin I 0.017, C-Reactive Protein, Quantitative 4.2H, Pro-B-Type Natriuretic Peptide [ Pending], Total Protein 6.9, Albumin 3.3L, Globulin 3.6, Albumin/Globulin Ratio 0.9L Current Medications Medications (Trade) Dose Ordered Sig/Sarah Route PRN Reason Start Time Stop Time Status Last Admin Dose Admin Acetaminophen (Tylenol) 650 mg Q6H PRN ORAL Mild Pain/Temp > 100.5 01/29/17 16:45 02/26/17 16:44 01/30/17 23:50 Atorvastatin Calcium (Lipitor) 20 mg BEDTIME ORAL 01/29/17 21:00 02/27/17 20:59 01/30/17 20:48 Cefdinir (Cefdinir) 300 mg EVERY OTHER DAY ORAL 01/30/17 11:00 02/06/17 10:59 01/30/17 11:12 Clonidine HCl (Catapres) 0.1 mg Q4H PRN ORAL SBP > 160 01/29/17 16:30 02/26/17 12:29 Dextrose (Dextrose 50%) STAT PRN IV Hypoglycemia 01/29/17 16:45 02/27/17 16:44 Hydralazine HCl (Apresoline) 25 mg Q8HR ORAL 01/30/17 14:00 02/26/17 12:44 01/31/17 06:21 Insulin Aspart (NovoLOG) BEFORE MEALS AND HS SUBQ 01/29/17 17:30 02/26/17 17:29 01/30/17 20:49 Metoprolol Tartrate (Lopressor) 25 mg Q12HR ORAL 01/30/17 21:00 03/01/17 20:59 01/30/17 20:48 Morphine Sulfate (Morphine Sulfate) 1 mg Q8H PRN IVP For chest pain--2nd line agent 01/29/17 16:30 02/03/17 06:59 Nitroglycerin (Ntg) 0.4 mg Q5MIN X 3 DOSES PRN SL Chest Pain--1st line agent 01/29/17 16:30 02/27/17 15:59 Ondansetron HCl (Zofran) 4 mg Q6H PRN IVP Nausea & Vomiting 01/29/17 16:45 02/26/17 16:44 Pantoprazole (Protonix) 40 mg ACBREAKFAST ORAL 01/30/17 06:30 02/26/17 08:59 01/31/17 06:21 Bryan (Vanchtein),Catherine REMY Jan 31, 2017 07:44
[2017-01-31 08:47] LABS: IRON 147 ug/dL (50-175); TOTAL IRON BINDING CAPACITY 200 ug/dL (250-450)
[2017-01-31 08:58] LABS: BAND NEUTROPHILS % (MANUAL) 0 % (0-8); BASOPHILS % (MANUAL) 0 % (0-2); EOSINOPHILS % (MANUAL) 0 % (0-3); HYPOCHROMASIA 1+; LYMPHOCYTES % (MANUAL) 23 % (20-45); NEUTROPHILS % (MANUAL) 68 % (45-75); PLATELET ESTIMATE ADEQUATE; PLATELET MORPHOLOGY NORMAL; TOTAL CELLS COUNTED 100
[2017-01-31 09:23] LABS: FERRITIN > 2000 NG/ML (8-388)
[2017-01-31] MEDS: Metoprolol 25mg tab ORAL SCH ×2 (09:51→21:38)
--- NOTE | 2017-01-31 11:46 | Infectious Diseases Prog Note ---
Assessment/Plan Assessment/Plan Assesment: Pulmonary edema-resolving -Possible PNA -CXR 01/28: Over one day, marked improvement of previously demonstrated parenchymal opacities, likely reflecting improved pulmonary edema, Mely minimal residual. Slight left costophrenic angle blunting; suspect trace left pleural fluid -CXR: Bilateral diffuse right greater than left interstitial and alveolar infiltrates versus edema -sp Cx: +4 K. pneumonia (R Amp, otherwise S), +4 normal joce Fever/leukocytosis- possible due to PNA-resolved -BCx NTD hyperkalemia, resolved ESRD on HD Dm2 HTN Plan: -Continue Cefdinir 300mg q48hr abx d #5/; ok to discharge home on this regimen. -01/30 ZOsyn #4 -f/u final blood cultures -Monitor CBC/CMP, temperatures Thank your for this consultation. Will continue to follow along with you. Discussed with RN and Dr Waller Subjective Allergies: Coded Allergies: PENICILLINS (Verified Allergy, Unknown, 01/30/17) hives 01/30/17: ITCHING WITH ZOSYN Subjective aferile feeling better Bcx NTD awaitind discharge once outpt HD is set up Objective Vital Signs Last 24 Hour Vital Signs Date Time Temp Pulse Resp B/P (MAP) Pulse Ox O2 Delivery O2 Flow Rate FiO2 01/31/17 08:00 97.9 85 20 128/64 96 01/31/17 06:21 139/71 01/31/17 04:00 97.7 67 18 139/71 95 Room Air 01/31/17 00:00 98.1 72 20 132/70 95 Room Air 01/30/17 20:48 71 141/71 01/30/17 20:48 141/71 01/30/17 20:00 97.9 71 20 141/71 99 Room Air 01/30/17 15:52 98.2 82 20 136/65 97 01/30/17 13:09 131/73 01/30/17 12:31 97.3 71 20 131/73 97 Room Air Height (Feet): 5 Height (Inches): 2.00 Weight (Pounds): 108 Objective Status: awake HEENT: atraumatic Lungs: +bibasilar crakcles Abdomen: non-tender, active bowel sounds Extremities: edema Laboratory Tests Test 12/1/17 06:50 White Blood Count 5.0 K/UL (4.8-10.8) Red Blood Count 2.46 M/UL (4.20-5.40) L Hemoglobin 7.8 G/DL (12.0-16.0) L Hematocrit 23.7 % (37.0-47.0) L Mean Corpuscular Volume 96 FL (80-99) Mean Corpuscular Hemoglobin 31.8 PG (27.0-31.0) H Mean Corpuscular Hemoglobin Concent 33.0 G/DL (32.0-36.0) Red Cell Distribution Width 13.9 % (11.6-14.8) Platelet Count 148 K/UL (150-450) L Mean Platelet Volume 7.3 FL (6.5-10.1) Neutrophils (%) (Auto) % (45.0-75.0) Lymphocytes (%) (Auto) % (20.0-45.0) Monocytes (%) (Auto) % (1.0-10.0) Eosinophils (%) (Auto) % (0.0-3.0) Basophils (%) (Auto) % (0.0-2.0) Differential Total Cells Counted 100 Neutrophils % (Manual) 68 % (45-75) Lymphocytes % (Manual) 23 % (20-45) Monocytes % (Manual) 9 % (1-10) Eosinophils % (Manual) 0 % (0-3) Basophils % (Manual) 0 % (0-2) Band Neutrophils 0 % (0-8) Platelet Estimate Adequate Platelet Morphology Normal Hypochromasia 1+ Sodium Level 140 MMOL/L (136-145) Potassium Level 3.4 MMOL/L (3.5-5.1) L Chloride Level 97 MMOL/L (98-107) L Carbon Dioxide Level 34 MMOL/L (21-32) H Anion Gap 9 mmol/L (5-15) Blood Urea Nitrogen 45 mg/dL (7-18) H Creatinine 9.2 MG/DL (0.55-1.30) H Estimat Glomerular Filtration Rate 4.7 mL/min (>60) Glucose Level 91 MG/DL (74-106) Uric Acid 5.5 MG/DL (2.6-7.2) Calcium Level 9.1 MG/DL (8.5-10.1) Phosphorus Level 5.0 MG/DL (2.5-4.9) H Iron Level 147 ug/dL (50-175) Total Iron Binding Capacity 200 ug/dL (250-450) L Percent Iron Saturation 74 % (15-50) H Unsaturated Iron Binding 53 ug/dL (112-346) L Ferritin > 2000 NG/ML (8-388) H Total Bilirubin 1.9 MG/DL (0.2-1.0) H Direct Bilirubin 0.3 MG/DL (0.0-0.3) Aspartate Amino Transf (AST/SGOT) 20 U/L (15-37) Alanine Aminotransferase (ALT/SGPT) 10 U/L (12-78) L Alkaline Phosphatase 112 U/L (46-116) Troponin I 0.017 ng/mL (0.000-0.056) C-Reactive Protein, Quantitative 4.2 mg/dL (0.00-0.90) H Pro-B-Type Natriuretic Peptide > 40318 pg/mL (0-125) H Total Protein 6.9 G/DL (6.4-8.2) Albumin 3.3 G/DL (3.4-5.0) L Globulin 3.6 g/dL Albumin/Globulin Ratio 0.9 (1.0-2.7) L Current Medications Medications (Trade) Dose Ordered Sig/Sarah Route PRN Reason Start Time Stop Time Status Last Admin Dose Admin Acetaminophen (Tylenol) 650 mg Q6H PRN ORAL Mild Pain/Temp > 100.5 01/29/17 16:45 02/26/17 16:44 01/30/17 23:50 Atorvastatin Calcium (Lipitor) 20 mg BEDTIME ORAL 01/29/17 21:00 02/27/17 20:59 01/30/17 20:48 Cefdinir (Cefdinir) 300 mg EVERY OTHER DAY ORAL 01/30/17 11:00 02/06/17 10:59 01/30/17 11:12 Clonidine HCl (Catapres) 0.1 mg Q4H PRN ORAL SBP > 160 01/29/17 16:30 02/26/17 12:29 Dextrose (Dextrose 50%) STAT PRN IV Hypoglycemia 01/29/17 16:45 02/27/17 16:44 Epoetin Dominic (Procrit (for ESRD on dialysis)) 10,000 units FRI-FRI-FRI SUBQ 01/31/17 21:00 03/02/17 20:59 Hydralazine HCl (Apresoline) 25 mg Q8HR ORAL 01/30/17 14:00 02/26/17 12:44 01/31/17 06:21 Insulin Aspart (NovoLOG) BEFORE MEALS AND HS SUBQ 01/29/17 17:30 02/26/17 17:29 01/30/17 20:49 Iron Sucrose 200 mg/Sodium Chloride 60 ml @ 200 mls/hr ONCE IV 01/31/17 14:00 01/31/17 14:30 Metoprolol Tartrate (Lopressor) 25 mg Q12HR ORAL 01/30/17 21:00 03/01/17 20:59 01/30/17 20:48 Morphine Sulfate (Morphine Sulfate) 1 mg Q8H PRN IVP For chest pain--2nd line agent 01/29/17 16:30 02/03/17 06:59 Nitroglycerin (Ntg) 0.4 mg Q5MIN X 3 DOSES PRN SL Chest Pain--1st line agent 01/29/17 16:30 02/27/17 15:59 Ondansetron HCl (Zofran) 4 mg Q6H PRN IVP Nausea & Vomiting 01/29/17 16:45 02/26/17 16:44 Pantoprazole (Protonix) 40 mg ACBREAKFAST ORAL 01/30/17 06:30 02/26/17 08:59 01/31/17 06:21 Priscila Mullen M.D. Jan 31, 2017 11:46
[2017-01-31] MEDS ORDERED: Iron Sucrose 200 MG in NS 50 ML IV SCH (14:00)
--- NOTE | 2017-01-31 14:47 | General Progress Note ---
Assessment/Plan Assessment/Plan ASSESSMENT AND RECOMMENDATIONS: 1. Thrombocytopenia, likely 2/2 infection vs medications --> abd US negative for liver disease --> continue to monitor closely,improving 2. Anemia secondary to kidney disease. Continue to closely monitor. --> hgb goal above 8, to receive one unit prbc 3. Leukocytosis, resolved. 4. End-stage renal disease, on hemodialysis. 5. Diabetes mellitus type 2. Subjective Allergies: Coded Allergies: PENICILLINS (Verified Allergy, Unknown, 01/30/17) hives 01/30/17: ITCHING WITH ZOSYN All Systems: reviewed and negative except above Subjective downtrending H/H Objective Last 24 Hour Vital Signs Date Time Temp Pulse Resp B/P (MAP) Pulse Ox O2 Delivery O2 Flow Rate FiO2 01/31/17 14:00 134/69 01/31/17 12:00 97.3 77 20 134/69 98 01/31/17 08:00 97.9 85 20 128/64 96 01/31/17 08:00 Room Air 01/31/17 06:21 139/71 01/31/17 04:00 97.7 67 18 139/71 95 Room Air 01/31/17 00:00 98.1 72 20 132/70 95 Room Air 01/30/17 20:48 71 141/71 01/30/17 20:48 141/71 01/30/17 20:00 97.9 71 20 141/71 99 Room Air 01/30/17 15:52 98.2 82 20 136/65 97 Laboratory Tests 01/31/17 06:50: White Blood Count 5.0, Red Blood Count 2.46L, Hemoglobin 7.8L, Hematocrit 23.7L , Mean Corpuscular Volume 96, Mean Corpuscular Hemoglobin 31.8H, Mean Corpuscular Hemoglobin Concent 33.0, Red Cell Distribution Width 13.9, Platelet Count 148L, Mean Platelet Volume 7.3, Neutrophils (%) (Auto) , Lymphocytes (%) ( Auto) , Monocytes (%) (Auto) , Eosinophils (%) (Auto) , Basophils (%) (Auto) , Differential Total Cells Counted 100, Neutrophils % (Manual) 68, Lymphocytes % ( Manual) 23, Monocytes % (Manual) 9, Eosinophils % (Manual) 0, Basophils % ( Manual) 0, Band Neutrophils 0, Platelet Estimate Adequate, Platelet Morphology Normal, Hypochromasia 1+, Sodium Level 140, Potassium Level 3.4L, Chloride Level 97L, Carbon Dioxide Level 34H, Anion Gap 9, Blood Urea Nitrogen 45H, Creatinine 9.2H, Estimat Glomerular Filtration Rate 4.7, Glucose Level 91, Uric Acid 5.5, Calcium Level 9.1, Phosphorus Level 5.0H, Iron Level 147, Total Iron Binding Capacity 200L, Percent Iron Saturation 74H, Unsaturated Iron Binding 53L , Ferritin > 2000H, Total Bilirubin 1.9H, Direct Bilirubin 0.3, Aspartate Amino Transf (AST/SGOT) 20, Alanine Aminotransferase (ALT/SGPT) 10L, Alkaline Phosphatase 112, Troponin I 0.017, C-Reactive Protein, Quantitative 4.2H, Pro-B- Type Natriuretic Peptide > 18966E, Total Protein 6.9, Albumin 3.3L, Globulin 3.6 , Albumin/Globulin Ratio 0.9L Height (Feet): 5 Height (Inches): 2.00 Weight (Pounds): 108 General Appearance: no apparent distress EENT: normal ENT inspection Neck: normal alignment Cardiovascular: no gallop/murmur Respiratory/Chest: chest wall non-tender Abdomen: non tender Extremities: non-tender Ray Lopez Jan 31, 2017 14:47
--- NOTE | 2017-01-31 16:10 | Nephrology Progress Note ---
Assessment/Plan Problem List: (1) ESRF (end stage renal failure) (2) Pulmonary edema (3) Acute hyperkalemia Assessment stable (1) ESRF (end stage renal failure) (2) Fever, leukocytosis (3) Acute hyperkalemia (4) Pulmonary edema (5) Anemia Plan Plan: HD 01/31 in process BP control. meds adjusted 2D Echo Left ventricular ejection fraction estimated to be 50-55 %. cultures: sputum Klebsiella Per orders Can DC when OP dialysis arranged Patient wants to be channelled to a dialysis unit close to here- currently she goes to [place] ! Info given. CM informed Subjective ROS Limited/Unobtainable: No Objective Objective Last 24 Hour Vital Signs Date Time Temp Pulse Resp B/P (MAP) Pulse Ox O2 Delivery O2 Flow Rate FiO2 01/31/17 14:00 134/69 01/31/17 13:40 Room Air 01/31/17 12:00 97.3 77 20 134/69 98 01/31/17 08:00 97.9 85 20 128/64 96 01/31/17 08:00 Room Air 01/31/17 06:21 139/71 01/31/17 04:00 97.7 67 18 139/71 95 Room Air 01/31/17 00:00 98.1 72 20 132/70 95 Room Air 01/30/17 20:48 71 141/71 01/30/17 20:48 141/71 01/30/17 20:00 97.9 71 20 141/71 99 Room Air Current Medications Medications (Trade) Dose Ordered Sig/Sarah Route PRN Reason Start Time Stop Time Status Last Admin Dose Admin Acetaminophen (Tylenol) 650 mg Q6H PRN ORAL Mild Pain/Temp > 100.5 01/29/17 16:45 02/26/17 16:44 01/30/17 23:50 Atorvastatin Calcium (Lipitor) 20 mg BEDTIME ORAL 01/29/17 21:00 02/27/17 20:59 01/30/17 20:48 Cefdinir (Cefdinir) 300 mg EVERY OTHER DAY ORAL 01/30/17 11:00 02/06/17 10:59 01/30/17 11:12 Clonidine HCl (Catapres) 0.1 mg Q4H PRN ORAL SBP > 160 01/29/17 16:30 02/26/17 12:29 Dextrose (Dextrose 50%) STAT PRN IV Hypoglycemia 01/29/17 16:45 02/27/17 16:44 Epoetin Dominic (Procrit (for ESRD on dialysis)) 10,000 units FRI-FRI-FRI SUBQ 01/31/17 21:00 03/02/17 20:59 Hydralazine HCl (Apresoline) 25 mg Q8HR ORAL 01/30/17 14:00 02/26/17 12:44 01/31/17 06:21 Insulin Aspart (NovoLOG) BEFORE MEALS AND HS SUBQ 01/29/17 17:30 02/26/17 17:29 01/30/17 20:49 Metoprolol Tartrate (Lopressor) 25 mg Q12HR ORAL 01/30/17 21:00 03/01/17 20:59 01/30/17 20:48 Morphine Sulfate (Morphine Sulfate) 1 mg Q8H PRN IVP For chest pain--2nd line agent 01/29/17 16:30 02/03/17 06:59 Nitroglycerin (Ntg) 0.4 mg Q5MIN X 3 DOSES PRN SL Chest Pain--1st line agent 01/29/17 16:30 02/27/17 15:59 Ondansetron HCl (Zofran) 4 mg Q6H PRN IVP Nausea & Vomiting 01/29/17 16:45 02/26/17 16:44 Pantoprazole (Protonix) 40 mg ACBREAKFAST ORAL 01/30/17 06:30 02/26/17 08:59 01/31/17 06:21 Laboratory Tests 01/31/17 06:50: White Blood Count 5.0, Red Blood Count 2.46L, Hemoglobin 7.8L, Hematocrit 23.7L , Mean Corpuscular Volume 96, Mean Corpuscular Hemoglobin 31.8H, Mean Corpuscular Hemoglobin Concent 33.0, Red Cell Distribution Width 13.9, Platelet Count 148L, Mean Platelet Volume 7.3, Neutrophils (%) (Auto) , Lymphocytes (%) ( Auto) , Monocytes (%) (Auto) , Eosinophils (%) (Auto) , Basophils (%) (Auto) , Differential Total Cells Counted 100, Neutrophils % (Manual) 68, Lymphocytes % ( Manual) 23, Monocytes % (Manual) 9, Eosinophils % (Manual) 0, Basophils % ( Manual) 0, Band Neutrophils 0, Platelet Estimate Adequate, Platelet Morphology Normal, Hypochromasia 1+, Sodium Level 140, Potassium Level 3.4L, Chloride Level 97L, Carbon Dioxide Level 34H, Anion Gap 9, Blood Urea Nitrogen 45H, Creatinine 9.2H, Estimat Glomerular Filtration Rate 4.7, Glucose Level 91, Uric Acid 5.5, Calcium Level 9.1, Phosphorus Level 5.0H, Iron Level 147, Total Iron Binding Capacity 200L, Percent Iron Saturation 74H, Unsaturated Iron Binding 53L , Ferritin > 2000H, Total Bilirubin 1.9H, Direct Bilirubin 0.3, Aspartate Amino Transf (AST/SGOT) 20, Alanine Aminotransferase (ALT/SGPT) 10L, Alkaline Phosphatase 112, Troponin I 0.017, C-Reactive Protein, Quantitative 4.2H, Pro-B- Type Natriuretic Peptide > 92830N, Total Protein 6.9, Albumin 3.3L, Globulin 3.6 , Albumin/Globulin Ratio 0.9L Height (Feet): 5 Height (Inches): 2.00 Weight (Pounds): 108 General Appearance: no apparent distress Cardiovascular: regular rhythm Respiratory/Chest: decreased breath sounds Abdomen: soft Objective no other changes CHUCKY LOGAN Jan 31, 2017 16:10
[2017-01-31] MEDS ORDERED: Epogen (for ESRD on dialysis) SUBQ SCH (21:00)
[2017-01-31] MEDS: Atorvastatin 20mg tab ORAL SCH (21:38)
[2017-01-31] MEDS: Cefdinir 300mg cap ORAL SCH (21:39)
[2017-02-01 04:00] VITALS: BP 152/67
[2017-02-01] MEDS: NovoLOG Insulin Flexpen SUBQ SCH ×4 (06:15→21:54)
[2017-02-01] MEDS: HydrALAZINE 25mg tab ORAL SCH ×3 (06:15→21:51)
[2017-02-01 08:00] VITALS: BP 112/66
[2017-02-01 08:02] LABS: EOSINOPHILS % (AUTO) 2.7 % (0.0-3.0); LYMPHOCYTES % (AUTO) 20.9 % (20.0-45.0); MEAN CORPUSCULAR HEMOGLOBIN 28.5 PG (27.0-31.0); MEAN CORPUSCULAR HGB CONC 31.8 G/DL (32.0-36.0); MEAN CORPUSCULAR VOLUME 90 FL (80-99); MEAN PLATELET VOLUME 7.5 FL (6.5-10.1); MONOCYTES % (AUTO) 9.1 % (1.0-10.0); NEUTROPHILS % (AUTO) 66.3 % (45.0-75.0); PLATELET COUNT 177 K/UL (150-450); RED BLOOD COUNT 3.16 M/UL (4.20-5.40); WHITE BLOOD COUNT 6.1 K/UL (4.8-10.8)
[2017-02-01 08:33] LABS: ANION GAP 8 mmol/L (5-15); CALCIUM 9.2 MG/DL (8.5-10.1); CARBON DIOXIDE 36 MMOL/L (21-32); CHLORIDE 97 MMOL/L (98-107); CREATININE 6.5 MG/DL (0.55-1.30); POTASSIUM 3.5 MMOL/L (3.5-5.1); SODIUM 141 MMOL/L (136-145)
[2017-02-01] MEDS: Metoprolol 25mg tab ORAL SCH ×2 (09:08→21:50)
--- NOTE | 2017-02-01 09:22 | Nephrology Progress Note ---
Assessment/Plan Problem List: (1) ESRF (end stage renal failure) (2) Pulmonary edema (3) Acute hyperkalemia Assessment stable (1) ESRF (end stage renal failure) (2) Fever, leukocytosis (3) Acute hyperkalemia (4) Pulmonary edema (5) Anemia Plan Plan: Transfused HD 01/31 next 02/02 and DC BP control. meds adjusted 2D Echo Left ventricular ejection fraction estimated to be 50-55 %. cultures: sputum Klebsiella Per orders Can DC when OP dialysis arranged Patient wants to be channelled to a dialysis unit close to here- currently she goes to [place] ! Info given. CM informed Subjective ROS Limited/Unobtainable: No Objective Objective Last 24 Hour Vital Signs Date Time Temp Pulse Resp B/P (MAP) Pulse Ox O2 Delivery O2 Flow Rate FiO2 02/01/17 09:08 75 112/66 02/01/17 08:00 97.7 75 20 112/66 95 02/01/17 06:15 152/67 02/01/17 04:00 97.9 78 20 152/67 92 Room Air 01/31/17 23:21 97.5 69 20 139/74 92 Room Air 01/31/17 21:39 125/68 01/31/17 21:38 82 125/68 01/31/17 19:16 98.1 82 20 125/68 94 Room Air 01/31/17 18:12 98.6 85 112/61 01/31/17 16:45 Room Air 01/31/17 16:15 97.9 59 21 104/61 97 Room Air 01/31/17 16:15 Room Air 01/31/17 14:00 134/69 01/31/17 13:40 Room Air 01/31/17 12:00 97.3 77 20 134/69 98 01/31/17 12:00 Room Air Current Medications Medications (Trade) Dose Ordered Sig/Sarah Route PRN Reason Start Time Stop Time Status Last Admin Dose Admin Acetaminophen (Tylenol) 650 mg Q6H PRN ORAL Mild Pain/Temp > 100.5 01/29/17 16:45 02/26/17 16:44 01/30/17 23:50 Atorvastatin Calcium (Lipitor) 20 mg BEDTIME ORAL 01/29/17 21:00 02/27/17 20:59 01/31/17 21:38 Cefdinir (Cefdinir) 300 mg EVERY OTHER DAY ORAL 01/31/17 22:00 02/07/17 21:59 01/31/17 21:39 Clonidine HCl (Catapres) 0.1 mg Q4H PRN ORAL SBP > 160 01/29/17 16:30 02/26/17 12:29 Dextrose (Dextrose 50%) STAT PRN IV Hypoglycemia 01/29/17 16:45 02/27/17 16:44 Epoetin Dominic (Procrit (for ESRD on dialysis)) 10,000 units FRI-FRI-FRI SUBQ 01/31/17 21:00 03/02/17 20:59 01/31/17 21:40 Hydralazine HCl (Apresoline) 25 mg Q8HR ORAL 01/30/17 14:00 02/26/17 12:44 02/01/17 06:15 Insulin Aspart (NovoLOG) BEFORE MEALS AND HS SUBQ 01/29/17 17:30 02/26/17 17:29 01/31/17 21:41 Metoprolol Tartrate (Lopressor) 25 mg Q12HR ORAL 01/30/17 21:00 03/01/17 20:59 02/01/17 09:08 Morphine Sulfate (Morphine Sulfate) 1 mg Q8H PRN IVP For chest pain--2nd line agent 01/29/17 16:30 02/03/17 06:59 Nitroglycerin (Ntg) 0.4 mg Q5MIN X 3 DOSES PRN SL Chest Pain--1st line agent 01/29/17 16:30 02/27/17 15:59 Ondansetron HCl (Zofran) 4 mg Q6H PRN IVP Nausea & Vomiting 01/29/17 16:45 02/26/17 16:44 Pantoprazole (Protonix) 40 mg ACBREAKFAST ORAL 01/30/17 06:30 02/26/17 08:59 02/01/17 06:15 Laboratory Tests 02/01/17 07:15: White Blood Count 6.1, Red Blood Count 3.16L, Hemoglobin 9.0L, Hematocrit 28.4L , Mean Corpuscular Volume 90, Mean Corpuscular Hemoglobin 28.5, Mean Corpuscular Hemoglobin Concent 31.8L, Red Cell Distribution Width 22.0H, Platelet Count 177, Mean Platelet Volume 7.5, Neutrophils (%) (Auto) 66.3, Lymphocytes (%) (Auto) 20.9, Monocytes (%) (Auto) 9.1, Eosinophils (%) (Auto) 2.7, Basophils (%) (Auto) 1.0, Sodium Level 141, Potassium Level 3.5, Chloride Level 97L, Carbon Dioxide Level 36H, Anion Gap 8, Blood Urea Nitrogen 25H, Creatinine 6.5H, Estimat Glomerular Filtration Rate 7.0, Glucose Level 94, Calcium Level 9.2 Height (Feet): 5 Height (Inches): 2.00 Weight (Pounds): 108 Cardiovascular: regular rhythm Respiratory/Chest: lungs clear Abdomen: soft Objective no other changes CHUCKY LOGAN Feb 01, 2017 09:22
--- NOTE | 2017-02-01 09:58 | Infectious Diseases Prog Note ---
Assessment/Plan Assessment/Plan Assesment: -Possible PNA : -sp Cx: +4 K. pneumonia (R Amp, otherwise S), +4 normal joce -CXR 01/28: Over one day, marked improvement of previously demonstrated parenchymal opacities, likely reflecting improved pulmonary edema, Mely minimal residual. Slight left costophrenic angle blunting; suspect trace left pleural fluid -CXR: Bilateral diffuse right greater than left interstitial and alveolar infiltrates versus edema Fever, SP leukocytosis-, SP Pulmonary edema-resolving ESRD on HD Dm2 HTN Plan: -Continue Cefdinir 300mg q48hr abx d # 6 /; ok to discharge home on this regimen. -01/30 ZOsyn #4 -f/u final blood cultures -Monitor CBC/CMP, temperatures Subjective Allergies: Coded Allergies: PENICILLINS (Verified Allergy, Unknown, 01/30/17) hives 01/30/17: ITCHING WITH ZOSYN Subjective afebrile Objective Vital Signs Last 24 Hour Vital Signs Date Time Temp Pulse Resp B/P (MAP) Pulse Ox O2 Delivery O2 Flow Rate FiO2 02/01/17 09:08 75 112/66 02/01/17 08:00 97.7 75 20 112/66 95 02/01/17 06:15 152/67 02/01/17 04:00 97.9 78 20 152/67 92 Room Air 01/31/17 23:21 97.5 69 20 139/74 92 Room Air 01/31/17 21:39 125/68 01/31/17 21:38 82 125/68 01/31/17 19:16 98.1 82 20 125/68 94 Room Air 01/31/17 18:12 98.6 85 112/61 01/31/17 16:45 Room Air 01/31/17 16:15 97.9 59 21 104/61 97 Room Air 01/31/17 16:15 Room Air 01/31/17 14:00 134/69 01/31/17 13:40 Room Air 01/31/17 12:00 97.3 77 20 134/69 98 01/31/17 12:00 Room Air Height (Feet): 5 Height (Inches): 2.00 Weight (Pounds): 108 HEENT: anicteric Respiratory/Chest: no respiratory distress Cardiovascular: normal rate Abdomen: no organomegaly Laboratory Tests Test 02/01/17 07:15 White Blood Count 6.1 K/UL (4.8-10.8) Red Blood Count 3.16 M/UL (4.20-5.40) L Hemoglobin 9.0 G/DL (12.0-16.0) L Hematocrit 28.4 % (37.0-47.0) L Mean Corpuscular Volume 90 FL (80-99) Mean Corpuscular Hemoglobin 28.5 PG (27.0-31.0) Mean Corpuscular Hemoglobin Concent 31.8 G/DL (32.0-36.0) L Red Cell Distribution Width 22.0 % (11.6-14.8) H Platelet Count 177 K/UL (150-450) Mean Platelet Volume 7.5 FL (6.5-10.1) Neutrophils (%) (Auto) 66.3 % (45.0-75.0) Lymphocytes (%) (Auto) 20.9 % (20.0-45.0) Monocytes (%) (Auto) 9.1 % (1.0-10.0) Eosinophils (%) (Auto) 2.7 % (0.0-3.0) Basophils (%) (Auto) 1.0 % (0.0-2.0) Sodium Level 141 MMOL/L (136-145) Potassium Level 3.5 MMOL/L (3.5-5.1) Chloride Level 97 MMOL/L (98-107) L Carbon Dioxide Level 36 MMOL/L (21-32) H Anion Gap 8 mmol/L (5-15) Blood Urea Nitrogen 25 mg/dL (7-18) H Creatinine 6.5 MG/DL (0.55-1.30) H Estimat Glomerular Filtration Rate 7.0 mL/min (>60) Glucose Level 94 MG/DL (74-106) Calcium Level 9.2 MG/DL (8.5-10.1) Current Medications Medications (Trade) Dose Ordered Sig/Sarah Route PRN Reason Start Time Stop Time Status Last Admin Dose Admin Acetaminophen (Tylenol) 650 mg Q6H PRN ORAL Mild Pain/Temp > 100.5 01/29/17 16:45 02/26/17 16:44 01/30/17 23:50 Atorvastatin Calcium (Lipitor) 20 mg BEDTIME ORAL 01/29/17 21:00 02/27/17 20:59 01/31/17 21:38 Cefdinir (Cefdinir) 300 mg EVERY OTHER DAY ORAL 01/31/17 22:00 02/07/17 21:59 01/31/17 21:39 Clonidine HCl (Catapres) 0.1 mg Q4H PRN ORAL SBP > 160 01/29/17 16:30 02/26/17 12:29 Dextrose (Dextrose 50%) STAT PRN IV Hypoglycemia 01/29/17 16:45 02/27/17 16:44 Epoetin Dominic (Procrit (for ESRD on dialysis)) 10,000 units FRI-FRI-FRI SUBQ 01/31/17 21:00 03/02/17 20:59 01/31/17 21:40 Hydralazine HCl (Apresoline) 25 mg Q8HR ORAL 01/30/17 14:00 02/26/17 12:44 02/01/17 06:15 Insulin Aspart (NovoLOG) BEFORE MEALS AND HS SUBQ 01/29/17 17:30 02/26/17 17:29 01/31/17 21:41 Metoprolol Tartrate (Lopressor) 25 mg Q12HR ORAL 01/30/17 21:00 03/01/17 20:59 02/01/17 09:08 Morphine Sulfate (Morphine Sulfate) 1 mg Q8H PRN IVP For chest pain--2nd line agent 01/29/17 16:30 02/03/17 06:59 Nitroglycerin (Ntg) 0.4 mg Q5MIN X 3 DOSES PRN SL Chest Pain--1st line agent 01/29/17 16:30 02/27/17 15:59 Ondansetron HCl (Zofran) 4 mg Q6H PRN IVP Nausea & Vomiting 01/29/17 16:45 02/26/17 16:44 Pantoprazole (Protonix) 40 mg ACBREAKFAST ORAL 01/30/17 06:30 02/26/17 08:59 02/01/17 06:15 TYRA RODRÍGUEZ M.D. Feb 01, 2017 09:58
--- NOTE | 2017-02-01 10:12 | General Progress Note ---
Assessment/Plan Status: stable Assessment/Plan 1. Hypoxemic respiratory failure. 2. Pulmonary edema. 3. Hypertension. 4. Diabetes. 5. Acute hyperkalemia. 6. Diastolic _ HF 7. Gastrointestinal and deep venous thrombosis prophylaxis. 8. Troponin leakage 9. Cytopenia Notes from following services are reviewed: Nephrology Pulmonary ID stable. Once HD setting as op is established, medically is stable to DC with HHC Subjective ROS Limited/Unobtainable: No Constitutional: Reports: malaise HEENT: Reports: no symptoms Cardiovascular: Reports: no symptoms Respiratory: Reports: no symptoms Allergies: Coded Allergies: PENICILLINS (Verified Allergy, Unknown, 01/30/17) hives 01/30/17: ITCHING WITH ZOSYN Objective Last 24 Hour Vital Signs Date Time Temp Pulse Resp B/P (MAP) Pulse Ox O2 Delivery O2 Flow Rate FiO2 02/01/17 09:08 75 112/66 02/01/17 08:00 97.7 75 20 112/66 95 02/01/17 06:15 152/67 02/01/17 04:00 97.9 78 20 152/67 92 Room Air 01/31/17 23:21 97.5 69 20 139/74 92 Room Air 01/31/17 21:39 125/68 01/31/17 21:38 82 125/68 01/31/17 19:16 98.1 82 20 125/68 94 Room Air 01/31/17 18:12 98.6 85 112/61 01/31/17 16:45 Room Air 01/31/17 16:15 97.9 59 21 104/61 97 Room Air 01/31/17 16:15 Room Air 01/31/17 14:00 134/69 01/31/17 13:40 Room Air 01/31/17 12:00 97.3 77 20 134/69 98 01/31/17 12:00 Room Air Laboratory Tests 02/01/17 07:15: White Blood Count 6.1, Red Blood Count 3.16L, Hemoglobin 9.0L, Hematocrit 28.4L , Mean Corpuscular Volume 90, Mean Corpuscular Hemoglobin 28.5, Mean Corpuscular Hemoglobin Concent 31.8L, Red Cell Distribution Width 22.0H, Platelet Count 177, Mean Platelet Volume 7.5, Neutrophils (%) (Auto) 66.3, Lymphocytes (%) (Auto) 20.9, Monocytes (%) (Auto) 9.1, Eosinophils (%) (Auto) 2.7, Basophils (%) (Auto) 1.0, Sodium Level 141, Potassium Level 3.5, Chloride Level 97L, Carbon Dioxide Level 36H, Anion Gap 8, Blood Urea Nitrogen 25H, Creatinine 6.5H, Estimat Glomerular Filtration Rate 7.0, Glucose Level 94, Calcium Level 9.2 Height (Feet): 5 Height (Inches): 2.00 Weight (Pounds): 108 General Appearance: no apparent distress EENT: PERRL/EOMI Neck: supple Cardiovascular: normal rate Respiratory/Chest: crackles/rales Abdomen: soft Extremities: non-tender 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
--- NOTE | 2017-02-01 11:29 | Pulmonology Progress Note ---
Assessment/Plan Assessment/Plan ASSESSMENT Acute hypoxemic RF 2 to pulmonary edema -resolved pulmonary edema-resolved acute diastolic CHF likely due to HTN urgency HTN urgency -resolved elevated troponin likely due to diastolic heart failure and slight myocarditis Acute hyperkalemia resolved ESRD, on HD likely PNA with Klebsiella Moderate to severe pulmonary HTN Hyperlipidemia DM type 2 Moderate TR moderate MR anemia of chronic renal disease acute anemia requiring blood transfusion thrombocytopenia likely due to infection vs Zosyn PLAN OF CARE MS floor O2 HHN prn fup CXR with markedly improved pulmonary edema ECHO with pEF 50-55% and RVSP of 58 c/w moderate to severe pulmonary HTN, as well as moderate TR and MR Cardio follows troponin trending down per cardio elevated troponin 2 to CHF exacerbation and slight myocarditis, Lipid panel with elevated TC and LDL Continue statin, check lipid panel in 3 months, goal to keep LDL below 100 BP management with Hydralazine and BB, stable now BS management with SS of insulin, HgA1c -5.1 at goal Nephro follows, HD as per nephro, monitor renal parameters, lytes, K stable ID follows, sputum cx + Klebsiella, blood cx negative, on abx, afebrile, Heme follows s/p 1 u PRBC, HH up , monitor counts thrombocytopenia per heme 2 to infectious process vs medication ( Zosyn) hepatitis panel negative abdominal US no evidence of gallstones, no dilated ducts HD in am and dc plan after HD for 02/02 case discussed and evaluated by supervising physician Subjective Allergies: Coded Allergies: PENICILLINS (Verified Allergy, Unknown, 01/30/17) hives 01/30/17: ITCHING WITH ZOSYN Subjective denies CP, SOB HH up after blood transfusion on 01/31 HD done 01/31 Objective Last 24 Hour Vital Signs Date Time Temp Pulse Resp B/P (MAP) Pulse Ox O2 Delivery O2 Flow Rate FiO2 02/01/17 09:08 75 112/66 02/01/17 08:00 97.7 75 20 112/66 95 02/01/17 08:00 Room Air 02/01/17 06:15 152/67 02/01/17 04:00 97.9 78 20 152/67 92 Room Air 01/31/17 23:21 97.5 69 20 139/74 92 Room Air 01/31/17 21:39 125/68 01/31/17 21:38 82 125/68 01/31/17 19:16 98.1 82 20 125/68 94 Room Air 01/31/17 18:12 98.6 85 112/61 01/31/17 16:45 Room Air 01/31/17 16:15 97.9 59 21 104/61 97 Room Air 01/31/17 16:15 Room Air 01/31/17 14:00 134/69 01/31/17 13:40 Room Air 01/31/17 12:00 97.3 77 20 134/69 98 01/31/17 12:00 Room Air Objective General Appearance: no acute distress, other - thin A/A/O x 3 Turkish speaking female in NAD HEENT: normocephalic, atraumatic, anicteric, mucous membranes moist, PERRL Respiratory/Chest: chest wall non-tender, lungs clear, normal breath sounds, no respiratory distress, no accessory muscle use Cardiovascular: normal peripheral pulses, normal rate, regular rhythm, no JVD, other - RUE AV shunt + thrill/bruit Abdomen: normal bowel sounds, soft, non tender, non distended Genitourinary: normal external genitalia Extremities: no edema, pedal pulses normal 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: no motor/sensory deficits, alert, oriented x 3, responsive, normal mood/affect Musculoskeletal: normal muscle bulk Laboratory Tests 02/01/17 07:15: White Blood Count 6.1, Red Blood Count 3.16L, Hemoglobin 9.0L, Hematocrit 28.4L , Mean Corpuscular Volume 90, Mean Corpuscular Hemoglobin 28.5, Mean Corpuscular Hemoglobin Concent 31.8L, Red Cell Distribution Width 22.0H, Platelet Count 177, Mean Platelet Volume 7.5, Neutrophils (%) (Auto) 66.3, Lymphocytes (%) (Auto) 20.9, Monocytes (%) (Auto) 9.1, Eosinophils (%) (Auto) 2.7, Basophils (%) (Auto) 1.0, Sodium Level 141, Potassium Level 3.5, Chloride Level 97L, Carbon Dioxide Level 36H, Anion Gap 8, Blood Urea Nitrogen 25H, Creatinine 6.5H, Estimat Glomerular Filtration Rate 7.0, Glucose Level 94, Calcium Level 9.2 Current Medications Medications (Trade) Dose Ordered Sig/Sarah Route PRN Reason Start Time Stop Time Status Last Admin Dose Admin Acetaminophen (Tylenol) 650 mg Q6H PRN ORAL Mild Pain/Temp > 100.5 01/29/17 16:45 02/26/17 16:44 01/30/17 23:50 Atorvastatin Calcium (Lipitor) 20 mg BEDTIME ORAL 01/29/17 21:00 02/27/17 20:59 01/31/17 21:38 Cefdinir (Cefdinir) 300 mg EVERY OTHER DAY ORAL 01/31/17 22:00 02/07/17 21:59 01/31/17 21:39 Clonidine HCl (Catapres) 0.1 mg Q4H PRN ORAL SBP > 160 01/29/17 16:30 02/26/17 12:29 Dextrose (Dextrose 50%) STAT PRN IV Hypoglycemia 01/29/17 16:45 02/27/17 16:44 Epoetin Dominic (Procrit (for ESRD on dialysis)) 10,000 units FRI-FRI-FRI SUBQ 01/31/17 21:00 03/02/17 20:59 01/31/17 21:40 Hydralazine HCl (Apresoline) 25 mg Q8HR ORAL 01/30/17 14:00 02/26/17 12:44 02/01/17 06:15 Insulin Aspart (NovoLOG) BEFORE MEALS AND HS SUBQ 01/29/17 17:30 02/26/17 17:29 01/31/17 21:41 Metoprolol Tartrate (Lopressor) 25 mg Q12HR ORAL 01/30/17 21:00 03/01/17 20:59 02/01/17 09:08 Morphine Sulfate (Morphine Sulfate) 1 mg Q8H PRN IVP For chest pain--2nd line agent 01/29/17 16:30 02/03/17 06:59 Nitroglycerin (Ntg) 0.4 mg Q5MIN X 3 DOSES PRN SL Chest Pain--1st line agent 01/29/17 16:30 02/27/17 15:59 Ondansetron HCl (Zofran) 4 mg Q6H PRN IVP Nausea & Vomiting 01/29/17 16:45 02/26/17 16:44 Pantoprazole (Protonix) 40 mg ACBREAKFAST ORAL 01/30/17 06:30 02/26/17 08:59 02/01/17 06:15 Bryan (Vanchtein),Catherine REMY Feb 01, 2017 11:29
--- NOTE | 2017-02-01 11:55 | Internal Med Progress Note ---
Subjective Date of Service: Jan 31, 2017 Physician Name Michelle Whitman Attending Physician Wally Waller MD Current Medications Medications (Trade) Dose Ordered Sig/Sarah Route PRN Reason Start Time Stop Time Status Last Admin Dose Admin Acetaminophen (Tylenol) 650 mg Q6H PRN ORAL Mild Pain/Temp > 100.5 01/29/17 16:45 02/26/17 16:44 01/30/17 23:50 Atorvastatin Calcium (Lipitor) 20 mg BEDTIME ORAL 01/29/17 21:00 02/27/17 20:59 01/31/17 21:38 Cefdinir (Cefdinir) 300 mg EVERY OTHER DAY ORAL 01/31/17 22:00 02/07/17 21:59 01/31/17 21:39 Clonidine HCl (Catapres) 0.1 mg Q4H PRN ORAL SBP > 160 01/29/17 16:30 02/26/17 12:29 Dextrose (Dextrose 50%) STAT PRN IV Hypoglycemia 01/29/17 16:45 02/27/17 16:44 Epoetin Dominic (Procrit (for ESRD on dialysis)) 10,000 units MON-WED-FRI SUBQ 01/31/17 21:00 03/02/17 20:59 01/31/17 21:40 Hydralazine HCl (Apresoline) 25 mg Q8HR ORAL 01/30/17 14:00 02/26/17 12:44 02/01/17 06:15 Insulin Aspart (NovoLOG) BEFORE MEALS AND HS SUBQ 01/29/17 17:30 02/26/17 17:29 01/31/17 21:41 Metoprolol Tartrate (Lopressor) 25 mg Q12HR ORAL 01/30/17 21:00 03/01/17 20:59 02/01/17 09:08 Morphine Sulfate (Morphine Sulfate) 1 mg Q8H PRN IVP For chest pain--2nd line agent 01/29/17 16:30 02/03/17 06:59 Nitroglycerin (Ntg) 0.4 mg Q5MIN X 3 DOSES PRN SL Chest Pain--1st line agent 01/29/17 16:30 02/27/17 15:59 Ondansetron HCl (Zofran) 4 mg Q6H PRN IVP Nausea & Vomiting 01/29/17 16:45 02/26/17 16:44 Pantoprazole (Protonix) 40 mg ACBREAKFAST ORAL 01/30/17 06:30 02/26/17 08:59 02/01/17 06:15 Allergies: Coded Allergies: PENICILLINS (Verified Allergy, Unknown, 01/30/17) hives 01/30/17: ITCHING WITH ZOSYN ROS Limited/Unobtainable: No Constitutional: Reports: no symptoms HEENT: Reports: no symptoms Cardiovascular: Reports: no symptoms Respiratory: Reports: shortness of breath Gastrointestinal/Abdominal: Reports: no symptoms Genitourinary: Reports: no symptoms 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: Reports: no symptoms Subjective 41 YO F admitted with shortness of breath and respiratory failure. Cover for Int Kenny-Dr Waller Objective Last Vital Signs Date Time Temp Pulse Resp B/P (MAP) Pulse Ox O2 Delivery O2 Flow Rate FiO2 02/01/17 09:08 75 112/66 02/01/17 08:00 97.7 20 95 02/01/17 08:00 Room Air 01/30/17 07:00 21 01/29/17 07:20 12.0 General Appearance: WD/WN, no apparent distress, mild distress EENT: PERRL/EOMI, normal ENT inspection Neck: non-tender, normal alignment, supple Cardiovascular: normal peripheral pulses, normal rate, regular rhythm, no gallop/murmur, no JVD Respiratory/Chest: respiratory distress, decreased breath sounds, crackles/ rales, rhonchi - bilaterally, expiratory wheezing Abdomen: normal bowel sounds, non tender, soft, no organomegaly, no mass Extremities: normal range of motion, non-tender 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 normal, no motor/sensory deficits Skin: normal pigmentation, warm/dry Laboratory Tests Test 02/01/17 07:15 White Blood Count 6.1 K/UL (4.8-10.8) Red Blood Count 3.16 M/UL (4.20-5.40) L Hemoglobin 9.0 G/DL (12.0-16.0) L Hematocrit 28.4 % (37.0-47.0) L Mean Corpuscular Volume 90 FL (80-99) Mean Corpuscular Hemoglobin 28.5 PG (27.0-31.0) Mean Corpuscular Hemoglobin Concent 31.8 G/DL (32.0-36.0) L Red Cell Distribution Width 22.0 % (11.6-14.8) H Platelet Count 177 K/UL (150-450) Mean Platelet Volume 7.5 FL (6.5-10.1) Neutrophils (%) (Auto) 66.3 % (45.0-75.0) Lymphocytes (%) (Auto) 20.9 % (20.0-45.0) Monocytes (%) (Auto) 9.1 % (1.0-10.0) Eosinophils (%) (Auto) 2.7 % (0.0-3.0) Basophils (%) (Auto) 1.0 % (0.0-2.0) Sodium Level 141 MMOL/L (136-145) Potassium Level 3.5 MMOL/L (3.5-5.1) Chloride Level 97 MMOL/L (98-107) L Carbon Dioxide Level 36 MMOL/L (21-32) H Anion Gap 8 mmol/L (5-15) Blood Urea Nitrogen 25 mg/dL (7-18) H Creatinine 6.5 MG/DL (0.55-1.30) H Estimat Glomerular Filtration Rate 7.0 mL/min (>60) Glucose Level 94 MG/DL (74-106) Calcium Level 9.2 MG/DL (8.5-10.1) Assessment/Plan Problem List: (1) CHF (congestive heart failure) (2) HTN (hypertension) Assessment & Plan: Continue hydralazine. (3) DM II (diabetes mellitus, type II), controlled (4) Hyperkalemia Assessment & Plan: Resolved (5) Respiratory failure with hypoxia Assessment & Plan: Due to pulm hypertension/CHF. Resolving. See pulmonary note. (6) ESRD (end stage renal disease) on dialysis Assessment & Plan: Next hemodialysis 02/02/17 per nephrology (7) Anemia Assessment & Plan: Await transfusion PRBC (8) Elevated troponin Assessment & Plan: Troponin leak per cardiology Status: progressing MICHELLE WHITMAN Feb 01, 2017 11:55
[2017-02-01 12:00] VITALS: BP 144/65
[2017-02-01] MEDS ORDERED: Tubing IV Blood Pump IV ONE (15:22)
[2017-02-01] MEDS ORDERED: Tubing IV Secondary IV ONE (15:22)
[2017-02-01] MEDS ORDERED: NS 500ML ONE (15:22)
[2017-02-01 16:00] VITALS: BP 126/73
--- NOTE | 2017-02-01 17:32 | Cardiology Progress Note ---
Assessment/Plan Assessment/Plan 1. Elevated troponin I level in this patient is mostly due to acute diastolic heart failure and slight myocarditis as the pattern of the troponin I not compatible with acute plaque rupture. She has had some left shoulder pain, repeat of troponin I has been negative 2. Dyslipidemia., continue Atorvastatin, target LDL <100 as she is at very high risk for coronary artery disease. 3. Hypertension emergency, spikes at times, continue hydralazine and metoprolol , continue clonidine p.r.n. 4. Acute HFpEF, responded well to HD, BNP downtrending, ~80985. Subjective Subjective Denies chest pain or SOB. Not on the telemetry unit. Objective Last 24 Hour Vital Signs Date Time Temp Pulse Resp B/P (MAP) Pulse Ox O2 Delivery O2 Flow Rate FiO2 02/01/17 16:00 97.7 70 20 126/73 97 02/01/17 14:18 144/65 02/01/17 12:00 98.2 73 16 144/65 94 Room Air 02/01/17 09:08 75 112/66 02/01/17 08:00 97.7 75 20 112/66 95 02/01/17 08:00 Room Air 02/01/17 06:15 152/67 02/01/17 04:00 97.9 78 20 152/67 92 Room Air 01/31/17 23:21 97.5 69 20 139/74 92 Room Air 01/31/17 21:39 125/68 01/31/17 21:38 82 125/68 01/31/17 19:16 98.1 82 20 125/68 94 Room Air 01/31/17 18:12 98.6 85 112/61 2D Echo: LVEF 55%, Grade II LVDD or pseudo-normal LV physio, RVSP 58 mmHg. Laboratory Tests Test 02/01/17 07:15 White Blood Count 6.1 K/UL (4.8-10.8) Red Blood Count 3.16 M/UL (4.20-5.40) L Hemoglobin 9.0 G/DL (12.0-16.0) L Hematocrit 28.4 % (37.0-47.0) L Mean Corpuscular Volume 90 FL (80-99) Mean Corpuscular Hemoglobin 28.5 PG (27.0-31.0) Mean Corpuscular Hemoglobin Concent 31.8 G/DL (32.0-36.0) L Red Cell Distribution Width 22.0 % (11.6-14.8) H Platelet Count 177 K/UL (150-450) Mean Platelet Volume 7.5 FL (6.5-10.1) Neutrophils (%) (Auto) 66.3 % (45.0-75.0) Lymphocytes (%) (Auto) 20.9 % (20.0-45.0) Monocytes (%) (Auto) 9.1 % (1.0-10.0) Eosinophils (%) (Auto) 2.7 % (0.0-3.0) Basophils (%) (Auto) 1.0 % (0.0-2.0) Sodium Level 141 MMOL/L (136-145) Potassium Level 3.5 MMOL/L (3.5-5.1) Chloride Level 97 MMOL/L (98-107) L Carbon Dioxide Level 36 MMOL/L (21-32) H Anion Gap 8 mmol/L (5-15) Blood Urea Nitrogen 25 mg/dL (7-18) H Creatinine 6.5 MG/DL (0.55-1.30) H Estimat Glomerular Filtration Rate 7.0 mL/min (>60) Glucose Level 94 MG/DL (74-106) Calcium Level 9.2 MG/DL (8.5-10.1) Objective GENERAL: The patient is a very pleasant 41-year-old female, in no apparent respiratory distress at this time, Alert and oriented x4. HEENT: Atraumatic and normocephalic. Anicteric. Pupils are equal, round, and reactive to light and accommodation. There is conjunctival pallor. NECK: JVP is about 15 cmH2O. No carotid bruit. Carotid upstrokes 2+ bilaterally. CARDIOVASCULAR: Normal S1, S2. Regular rate and rhythm. No murmurs, gallops, or rubs. PMI is at fourth intercostal space at left midclavicular line. LUNGS: Some bilateral rhonchi in both bases. Scattered crackles in the base of both lungs. ABDOMEN: Soft, nontender, nondistended. No hepatosplenomegaly. Positive bowel sounds. EXTREMITIES: No evidence of edema, clubbing, or cyanosis. JANE ADKINS Feb 01, 2017 17:32
[2017-02-01 19:33] VITALS: BP 144/59
[2017-02-01] MEDS: Atorvastatin 20mg tab ORAL SCH (21:50)
--- NOTE | 2017-02-01 22:26 | General Progress Note ---
Assessment/Plan Assessment/Plan ASSESSMENT AND RECOMMENDATIONS: 1. Thrombocytopenia, likely 2/2 infection vs medications --> abd US negative for liver disease --> continue to monitor closely,improving 2. Anemia secondary to kidney disease. Continue to closely monitor. --> hgb goal above 8, to receive one unit prbc 3. Leukocytosis, resolved. 4. End-stage renal disease, on hemodialysis. 5. Diabetes mellitus type 2. Subjective Allergies: Coded Allergies: PENICILLINS (Verified Allergy, Unknown, 01/30/17) hives 01/30/17: ITCHING WITH ZOSYN All Systems: reviewed and negative except above Subjective nad Objective Last 24 Hour Vital Signs Date Time Temp Pulse Resp B/P (MAP) Pulse Ox O2 Delivery O2 Flow Rate FiO2 02/01/17 21:51 144/59 02/01/17 21:50 84 144/59 02/01/17 19:33 96.8 84 20 144/59 96 Room Air 02/01/17 16:00 97.7 70 20 126/73 97 02/01/17 14:18 144/65 02/01/17 12:00 98.2 73 16 144/65 94 Room Air 02/01/17 09:08 75 112/66 02/01/17 08:00 97.7 75 20 112/66 95 02/01/17 08:00 Room Air 02/01/17 06:15 152/67 02/01/17 04:00 97.9 78 20 152/67 92 Room Air 01/31/17 23:21 97.5 69 20 139/74 92 Room Air Intake and Output 02/01/17 02/02/17 19:00 07:00 Intake Total 320 ml Balance 320 ml Intake Oral 320 ml # Voids 4 Laboratory Tests 02/01/17 07:15: White Blood Count 6.1, Red Blood Count 3.16L, Hemoglobin 9.0L, Hematocrit 28.4L , Mean Corpuscular Volume 90, Mean Corpuscular Hemoglobin 28.5, Mean Corpuscular Hemoglobin Concent 31.8L, Red Cell Distribution Width 22.0H, Platelet Count 177, Mean Platelet Volume 7.5, Neutrophils (%) (Auto) 66.3, Lymphocytes (%) (Auto) 20.9, Monocytes (%) (Auto) 9.1, Eosinophils (%) (Auto) 2.7, Basophils (%) (Auto) 1.0, Sodium Level 141, Potassium Level 3.5, Chloride Level 97L, Carbon Dioxide Level 36H, Anion Gap 8, Blood Urea Nitrogen 25H, Creatinine 6.5H, Estimat Glomerular Filtration Rate 7.0, Glucose Level 94, Calcium Level 9.2 Height (Feet): 5 Height (Inches): 2.00 Weight (Pounds): 108 General Appearance: no apparent distress EENT: normal ENT inspection Neck: normal alignment Cardiovascular: normal peripheral pulses Respiratory/Chest: chest wall non-tender Skin: normal pigmentation Ray Lopez Feb 01, 2017 22:26
[2017-02-01 23:28] VITALS: BP 152/67
[2017-02-02 04:00] VITALS: BP 138/66
[2017-02-02] MEDS: NovoLOG Insulin Flexpen SUBQ SCH ×2 (05:46→11:30)
[2017-02-02] MEDS: HydrALAZINE 25mg tab ORAL SCH ×2 (06:00→13:24)
[2017-02-02] MEDS: Metoprolol 25mg tab ORAL SCH (08:36)
[2017-02-02] MEDS: Cefdinir 300mg cap ORAL SCH (08:36)
[2017-02-02 08:45] VITALS: BP 132/73
--- NOTE | 2017-02-02 11:53 | Nephrology Progress Note ---
Assessment/Plan Problem List: (1) ESRF (end stage renal failure) (2) Pulmonary edema (3) Acute hyperkalemia Assessment stable (1) ESRF (end stage renal failure) (2) Fever, leukocytosis (3) Acute hyperkalemia (4) Pulmonary edema (5) Anemia Plan Plan: Transfused HD 01/31 next 02/02 and DC BP control. meds adjusted 2D Echo Left ventricular ejection fraction estimated to be 50-55 %. cultures: sputum Klebsiella Per orders Can DC when OP dialysis arranged Patient wants to be channelled to a dialysis unit close to here- currently she goes to [place] ! Info given. CM informed Subjective ROS Limited/Unobtainable: No Objective Objective Last 24 Hour Vital Signs Date Time Temp Pulse Resp B/P (MAP) Pulse Ox O2 Delivery O2 Flow Rate FiO2 02/02/17 08:45 97.2 77 20 132/73 99 02/02/17 08:36 73 126/72 02/02/17 06:00 126/72 02/02/17 04:00 97.9 73 20 138/66 97 02/01/17 23:28 97.7 69 20 152/67 97 Room Air 02/01/17 21:51 144/59 02/01/17 21:50 84 144/59 02/01/17 19:33 96.8 84 20 144/59 96 Room Air 02/01/17 16:00 97.7 70 20 126/73 97 02/01/17 14:18 144/65 02/01/17 12:00 98.2 73 16 144/65 94 Room Air Current Medications Medications (Trade) Dose Ordered Sig/Sarah Route PRN Reason Start Time Stop Time Status Last Admin Dose Admin Acetaminophen (Tylenol) 650 mg Q6H PRN ORAL Mild Pain/Temp > 100.5 01/29/17 16:45 02/26/17 16:44 01/30/17 23:50 Atorvastatin Calcium (Lipitor) 20 mg BEDTIME ORAL 01/29/17 21:00 02/27/17 20:59 02/01/17 21:50 Cefdinir (Cefdinir) 300 mg EVERY OTHER DAY ORAL 01/31/17 22:00 02/02/17 21:59 02/02/17 08:36 Clonidine HCl (Catapres) 0.1 mg Q4H PRN ORAL SBP > 160 01/29/17 16:30 02/26/17 12:29 Dextrose (Dextrose 50%) STAT PRN IV Hypoglycemia 01/29/17 16:45 02/27/17 16:44 Epoetin Dominic (Procrit (for ESRD on dialysis)) 10,000 units MON-WED-FRI SUBQ 01/31/17 21:00 03/02/17 20:59 01/31/17 21:40 Hydralazine HCl (Apresoline) 25 mg Q8HR ORAL 01/30/17 14:00 02/26/17 12:44 02/01/17 21:51 Insulin Aspart (NovoLOG) BEFORE MEALS AND HS SUBQ 01/29/17 17:30 02/26/17 17:29 02/01/17 21:54 Metoprolol Tartrate (Lopressor) 25 mg Q12HR ORAL 01/30/17 21:00 03/01/17 20:59 02/01/17 21:50 Morphine Sulfate (Morphine Sulfate) 1 mg Q8H PRN IVP For chest pain--2nd line agent 01/29/17 16:30 02/03/17 06:59 Nitroglycerin (Ntg) 0.4 mg Q5MIN X 3 DOSES PRN SL Chest Pain--1st line agent 01/29/17 16:30 02/27/17 15:59 Ondansetron HCl (Zofran) 4 mg Q6H PRN IVP Nausea & Vomiting 01/29/17 16:45 02/26/17 16:44 Pantoprazole (Protonix) 40 mg ACBREAKFAST ORAL 01/30/17 06:30 02/26/17 08:59 02/02/17 06:06 Height (Feet): 5 Height (Inches): 2.00 Weight (Pounds): 108 General Appearance: no apparent distress Objective no other changes CHUCKY LOGAN Feb 02, 2017 11:53
[2017-02-02 12:00] VITALS: BP 138/73
--- NOTE | 2017-02-02 12:29 | Pulmonology Progress Note ---
Assessment/Plan Assessment/Plan ASSESSMENT Acute hypoxemic RF 2 to pulmonary edema -resolved pulmonary edema-resolved acute diastolic CHF likely due to HTN urgency HTN urgency -resolved elevated troponin likely due to diastolic heart failure and slight myocarditis Acute hyperkalemia resolved ESRD, on HD likely PNA with Klebsiella Moderate to severe pulmonary HTN Hyperlipidemia DM type 2 Moderate TR moderate MR anemia of chronic renal disease acute anemia requiring blood transfusion thrombocytopenia likely due to infection vs Zosyn PLAN OF CARE MS floor O2 HHN prn fup CXR with markedly improved pulmonary edema ECHO with pEF 50-55% and RVSP of 58 c/w moderate to severe pulmonary HTN, as well as moderate TR and MR Cardio follows troponin trending down per cardio elevated troponin 2 to CHF exacerbation and slight myocarditis, Lipid panel with elevated TC and LDL Continue statin, check lipid panel in 3 months, goal to keep LDL below 100 BP management with Hydralazine and BB, stable now BS management with SS of insulin, HgA1c -5.1 at goal Nephro follows, HD as per nephro, monitor renal parameters, lytes, K stable ID follows, sputum cx + Klebsiella, blood cx negative, on abx, afebrile, Heme follows s/p 1 u PRBC, HH up , monitor counts thrombocytopenia per heme 2 to infectious process vs medication ( Zosyn) hepatitis panel negative abdominal US no evidence of gallstones, no dilated ducts dc today with outpt HD case discussed and evaluated by supervising physician Subjective Allergies: Coded Allergies: PENICILLINS (Verified Allergy, Unknown, 01/30/17) hives 01/30/17: ITCHING WITH ZOSYN Subjective denies CP, SOB HD done today Objective Last 24 Hour Vital Signs Date Time Temp Pulse Resp B/P (MAP) Pulse Ox O2 Delivery O2 Flow Rate FiO2 02/02/17 08:45 97.2 77 20 132/73 99 02/02/17 08:36 73 126/72 02/02/17 06:00 126/72 02/02/17 04:00 97.9 73 20 138/66 97 02/01/17 23:28 97.7 69 20 152/67 97 Room Air 02/01/17 21:51 144/59 02/01/17 21:50 84 144/59 02/01/17 19:33 96.8 84 20 144/59 96 Room Air 02/01/17 16:00 97.7 70 20 126/73 97 02/01/17 14:18 144/65 Objective General Appearance: no acute distress, other - thin A/A/O x 3 Chinese speaking female in NAD HEENT: normocephalic, atraumatic, anicteric, mucous membranes moist, PERRL Respiratory/Chest: chest wall non-tender, lungs clear, normal breath sounds, no respiratory distress, no accessory muscle use Cardiovascular: normal peripheral pulses, normal rate, regular rhythm, no JVD, other - RUE AV shunt + thrill/bruit Abdomen: normal bowel sounds, soft, non tender, non distended Genitourinary: normal external genitalia Extremities: no edema, pedal pulses normal 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: no motor/sensory deficits, alert, oriented x 3, responsive, normal mood/affect Musculoskeletal: normal muscle bulk Current Medications Medications (Trade) Dose Ordered Sig/Sarah Route PRN Reason Start Time Stop Time Status Last Admin Dose Admin Acetaminophen (Tylenol) 650 mg Q6H PRN ORAL Mild Pain/Temp > 100.5 01/29/17 16:45 02/26/17 16:44 01/30/17 23:50 Atorvastatin Calcium (Lipitor) 20 mg BEDTIME ORAL 01/29/17 21:00 02/27/17 20:59 02/01/17 21:50 Cefdinir (Cefdinir) 300 mg EVERY OTHER DAY ORAL 01/31/17 22:00 02/02/17 21:59 02/02/17 08:36 Clonidine HCl (Catapres) 0.1 mg Q4H PRN ORAL SBP > 160 01/29/17 16:30 02/26/17 12:29 Dextrose (Dextrose 50%) STAT PRN IV Hypoglycemia 01/29/17 16:45 02/27/17 16:44 Epoetin Dominic (Procrit (for ESRD on dialysis)) 10,000 units MON-WED-FRI SUBQ 01/31/17 21:00 03/02/17 20:59 01/31/17 21:40 Hydralazine HCl (Apresoline) 25 mg Q8HR ORAL 01/30/17 14:00 02/26/17 12:44 02/01/17 21:51 Insulin Aspart (NovoLOG) BEFORE MEALS AND HS SUBQ 01/29/17 17:30 02/26/17 17:29 02/01/17 21:54 Metoprolol Tartrate (Lopressor) 25 mg Q12HR ORAL 01/30/17 21:00 03/01/17 20:59 02/01/17 21:50 Morphine Sulfate (Morphine Sulfate) 1 mg Q8H PRN IVP For chest pain--2nd line agent 01/29/17 16:30 02/03/17 06:59 Nitroglycerin (Ntg) 0.4 mg Q5MIN X 3 DOSES PRN SL Chest Pain--1st line agent 01/29/17 16:30 02/27/17 15:59 Ondansetron HCl (Zofran) 4 mg Q6H PRN IVP Nausea & Vomiting 01/29/17 16:45 02/26/17 16:44 Pantoprazole (Protonix) 40 mg ACBREAKFAST ORAL 01/30/17 06:30 02/26/17 08:59 02/02/17 06:06 [facility]atherine Acuña NP Feb 02, 2017 12:29
[2017-02-02] MEDS ORDERED: HYDRALAZINE HCL25 M2 PO (13:11)
[2017-02-02] MEDS ORDERED: CEFDINIR300 MG PO (13:11)
[2017-02-02] MEDS ORDERED: LOPRESSOR25 M1 ORAL (13:12)
--- NOTE | 2017-02-02 13:39 | General Progress Note ---
Assessment/Plan Status: stable Assessment/Plan 1. Hypoxemic respiratory failure. 2. Pulmonary edema. 3. Hypertension. 4. Diabetes. 5. Acute hyperkalemia. 6. Diastolic _ HF 7. Gastrointestinal and deep venous thrombosis prophylaxis. 8. Troponin leakage 9. Cytopenia Notes from following services are reviewed: Nephrology Pulmonary ID stable. medically is stable to DC home Subjective ROS Limited/Unobtainable: No Constitutional: Reports: no symptoms HEENT: Reports: no symptoms Cardiovascular: Reports: no symptoms Allergies: Coded Allergies: PENICILLINS (Verified Allergy, Unknown, 01/30/17) hives 01/30/17: ITCHING WITH ZOSYN Objective Last 24 Hour Vital Signs Date Time Temp Pulse Resp B/P (MAP) Pulse Ox O2 Delivery O2 Flow Rate FiO2 02/02/17 13:24 138/73 02/02/17 12:00 97.6 75 16 138/73 99 Room Air 02/02/17 11:40 Room Air 12.0 21 02/02/17 08:45 97.2 77 20 132/73 99 02/02/17 08:36 73 126/72 02/02/17 06:00 126/72 02/02/17 04:00 97.9 73 20 138/66 97 02/01/17 23:28 97.7 69 20 152/67 97 Room Air 02/01/17 21:51 144/59 02/01/17 21:50 84 144/59 02/01/17 19:33 96.8 84 20 144/59 96 Room Air 02/01/17 16:00 97.7 70 20 126/73 97 02/01/17 14:18 144/65 Height (Feet): 5 Height (Inches): 2.00 Weight (Pounds): 108 General Appearance: no apparent distress EENT: PERRL/EOMI Neck: supple Cardiovascular: normal rate Respiratory/Chest: lungs clear Abdomen: soft Extremities: other - Right shunt in place Neurologic: skidway man II-XII grossly normal Wally Waller MD Feb 02, 2017 13:39
[2017-02-02 16:30] VITALS: BP 123/65
--- NOTE | 2017-02-02 21:09 | General Progress Note ---
Assessment/Plan Assessment/Plan ASSESSMENT AND RECOMMENDATIONS: 1. Thrombocytopenia, likely 2/2 infection vs medications --> abd US negative for liver disease --> continue to monitor closely,improving 2. Anemia secondary to kidney disease. Continue to closely monitor. --> hgb goal above 8, to receive one unit prbc 3. Leukocytosis, resolved. 4. End-stage renal disease, on hemodialysis. 5. Diabetes mellitus type 2. Subjective Time patient seen: 10:00 Allergies: Coded Allergies: PENICILLINS (Verified Allergy, Unknown, 01/30/17) hives 01/30/17: ITCHING WITH ZOSYN All Systems: reviewed and negative except above Subjective HH better, no events overnight Objective Last 24 Hour Vital Signs Date Time Temp Pulse Resp B/P (MAP) Pulse Ox O2 Delivery O2 Flow Rate FiO2 02/02/17 16:30 98.1 66 16 123/65 95 Room Air 02/02/17 16:00 Room Air 12.0 21 02/02/17 13:24 138/73 02/02/17 12:00 97.6 75 16 138/73 99 Room Air 02/02/17 11:40 Room Air 12.0 21 02/02/17 08:45 97.2 77 20 132/73 99 02/02/17 08:36 73 126/72 02/02/17 06:00 126/72 02/02/17 04:00 97.9 73 20 138/66 97 02/01/17 23:28 97.7 69 20 152/67 97 Room Air 02/01/17 21:51 144/59 02/01/17 21:50 84 144/59 Intake and Output 02/02/17 02/03/17 19:00 07:00 Output Total 3000 ml Balance -3000 ml Hemodialysis UF 3000 ml Height (Feet): 5 Height (Inches): 2.00 Weight (Pounds): 108 General Appearance: no apparent distress EENT: normal ENT inspection Neck: normal inspection Cardiovascular: normal peripheral pulses Extremities: non-tender Edema: trace edema Skin: normal pigmentation Ray Lopez Feb 02, 2017 21:09
[2017-02-03 09:02] LABS: HEMOGLOBIN A 97.6 % (94.0-98.0); HEMOGLOBIN A2 2.4 % (0.7-3.1); METHYLMALONIC ACID 712 nmol/L (0-378)
--- NOTE | 2017-02-05 09:19 | Discharge Summary ---
Discharge Summary Hospital Course Date of Admission Jan 27, 2017 at 02:03 Date of Discharge Feb 02, 2017 at 16:50 Admitting Diagnosis pulmonary edema HPI Rita Fitzpatrick is a 41 year old female who was admitted on Jan 27, 2017 at 02: 03 for Pulmonary Edema Hospital Course dc summary #[id number] Discharge Medications Continued Medications: Cefdinir (Cefdinir) 300 Mg Capsule 300 MG PO q48hr for 1 Day, CAP Escitalopram Oxalate* (Lexapro*) 10 Mg Tablet 10 MG ORAL DAILY, TAB Esomeprazole Magnesium (Nexium) 20 Mg Capsule.dr 20 MG ORAL DAILY, CAP Hydralazine HCl (Hydralazine HCl) 25 Mg Tablet 25 MG PO Q8HR, TAB Levothyroxine Sodium* (Synthroid*) 100 Mcg Tablet 100 MCG ORAL DAILY, TAB Take in the morning on an empty stomach, at least 30 minutes before food. Metoprolol Tartrate (Metoprolol Tartrate) 25 Mg Tablet 25 MG ORAL BID, TAB Discontinued Medications: Atenolol (Tenormin) 25 Mg Tablet 25 MG ORAL DAILY, TAB Atenolol* (Tenormin*) 25 Mg Tablet 25 MG ORAL DAILY, TAB Nifedipine Xl* (Procardia Xl*) 30 Mg Tab.er.24 30 MG ORAL DAILY, TAB Discharge Condition Upon Discharge: stable Discharge Disposition Patient was discharged to Home () Discharge Diagnoses: Irvin (Catherine Hidalgo NP Feb 05, 2017 09:19
--- NOTE | 2017-02-05 21:45 | Discharge Summary 2 SIG ---
DATE OF ADMISSION: 01/27/2017 DATE OF DISCHARGE: 02/02/2017 REASON FOR ADMISSION: 41 years old female with history of end-stage renal disease, on hemodialysis, presented with acute shortness of breath. The patient reported difficulty breathing, worse when lying down. The patient presented with acute respiratory distress requiring supplemental oxygen. Chest x-ray revealed evidence of pulmonary edema. Elevated potassium -6.5. BUN -44 and creatinine -7.1 consistent with known history of end-stage renal disease. Pro BNP severely elevated at 615,696. ABG revealed evidence of hypoxemia with O2 saturation of 89%. Blood pressure severely elevated- 200/84. The patient was admitted with pulmonary edema, acute respiratory failure with hypoxemia, hypertensive emergency, hyperkalemia and end stage renal disease. HOSPITAL STAY: The patient was admitted to the telemetry floor. Cardiology, Nephrology, Pulmonology consults along with ID consult were requested. Supplemental oxygen provided to keep saturation above 92%. Pulmonary toilet provided as needed. Hemodialysis was arranged as per farm consultant orders. Renal parameters and electrolytes were closely monitored. Potassium stable after treatment of hyperkalemia. Follow up chest x-ray after hemodialysis revealed markedly improved pulmonary edema. Echocardiogram revealed preserved ejection fraction of 50% to 55%, right ventricular systolic pressure of 58, consistent with moderate to severe pulmonary hypertension, as well as moderate tricuspid regurgitation, and moderate mitral regurgitation. Cardiology closely followed the patient. First troponin was negative. Afterwards, the patient demonstrated elevated troponin and last troponin was negative. According to alarm field technician, elevated troponin level in this patient was most likely due to the acute diastolic heart failure and slight myocarditis as the pattern of the troponin was not compatible with acute plaque rupture. Last troponin was negative. Lipid panel revealed elevated total cholesterol and LDL. Statin was continued. Recommended to check lipid panel in three months, goal to keep LDL below 100 in this patient since the patient at very high risk for coronary artery disease. Blood pressure was managed with hydralazine and beta-luli . Antihypertensive regimen was titrated by alarm field technician. Blood pressure stabilized with this regimen. Blood sugar was managed with sliding scale of insulin. Hemoglobin A1c -5.1, at goal. Infectious Disease specialist closely followed. Sputum culture revealed growth of Klebsiella. Blood cultures were negative. The patient was on antibiotic, afebrile, no leukocytosis. The patient had acute anemia requiring transfusion of one unit of packed red blood cell. Chemist followed. Counts were closely monitored, hemoglobin and hematocrit after transfusion improved. Anemia likely secondary to chronic kidney disease. Per supervisor car and yard, goal to keep hemoglobin above 8. The patient also noted to have thrombocytopenia. Platelets were trending down and on 01/28/2017, platelet count was 106. Thrombocytopenia was likely secondary to infection versus medication as per supervisor car and yard. Abdominal ultrasound was negative, no evidence of liver disease. Platelets were improving , and prior to discharge count up to 177. Hepatitis panel was negative. Outpatient hemodialysis was arranged. The patient was stable for discharge. Prior to discharge, blood pressure was stable, potassium3.5, platelets up to 177, and pulse oximetry was 95% on room air. FINAL DIAGNOSES: 1. Acute hypoxemic respiratory failure, secondary to pulmonary edema, resolved. 2. Pulmonary edema, resolved. 3. Acute diastolic congestive heart failure, likely due to hypertensive urgency. 4. Hypertensive urgency, resolved. 5. Elevated troponin, likely due to diastolic heart failure and slight myocarditis. 6. Acute hyperkalemia, resolved. 7. End-stage renal disease, on hemodialysis. 8. Probably pneumonia with Klebsiella. 9. Moderate to severe pulmonary hypertension. 10. Hyperlipidemia. 11. Diabetes mellitus type 2. 12. Moderate tricuspid regurgitation. 13. Moderate mitral regurgitation. 14. Anemia of chronic renal disease. 15. Acute anemia requiring blood transfusion. 16. Thrombocytopenia, likely due to infection versus Zosyn, improved. DISCHARGE MEDICATIONS: See medication reconciliation list. DISCHARGE INSTRUCTIONS: The patient was discharged home. Follow up with primary medical doctor, farm consultant, and outpatient dialysis. Complete antibiotic regimen as per ID recommendation, prescription provided. Wally Waller M.D. Catherine Petitenrique N.PPreston DR: MAIRA JOB#: [id number] CC: LANDON
[2017-02-11 07:10] LABS: HEPATITIS BE ANTIGEN/CEDARS NONREACTIVE (NONREACTIVE)
== END 2017-02-02 16:50 | disposition home or self-care (01) | DRG 133 ==
LOC: EDBD 00:09 → EMR 00:15 → EDBEDREQ 01:58 → ICU 02:03 → EDBEDREQ 02:51 → 2E 01-28 15:28 → 4E 01-29 16:01
PROC: 5A09357 Assistance with Respiratory Ventilation, Less than 24 Consecutive Hours, Continuous Positive Airway Pressure (ICD-10-PCS; principal; 2017-01-27)
PROC: 5A1D70Z Performance of Urinary Filtration, Intermittent, Less than 6 Hours Per Day (ICD-10-PCS; 2017-01-27)
PROC: 30233N1 Transfusion of Nonautologous Red Blood Cells into Peripheral Vein, Percutaneous Approach (ICD-10-PCS; 2017-01-31)
DX: J96.01 Acute respiratory failure with hypoxia (principal); I50.31 Acute diastolic (congestive) heart failure; J15.0 Pneumonia due to Klebsiella pneumoniae; N18.6 End stage renal disease; I12.0 Hypertensive chronic kidney disease with stage 5 chronic kidney disease or end stage renal disease; E11.22 Type 2 diabetes mellitus with diabetic chronic kidney disease; D69.6 Thrombocytopenia, unspecified; I27.20 Pulmonary hypertension, unspecified; E11.9 Type 2 diabetes mellitus without complications; E87.5 Hyperkalemia; R07.9 Chest pain, unspecified; Z88.0 Allergy status to penicillin; Z99.2 Dependence on renal dialysis; I16.0 Hypertensive urgency; E78.5 Hyperlipidemia, unspecified; I36.1 Nonrheumatic tricuspid (valve) insufficiency; I34.0 Nonrheumatic mitral (valve) insufficiency; D63.1 Anemia in chronic kidney disease
CPT/HCPCS: 36415; 36600; 71010; 76700; 80048; 80053; 80061; 82105; 82248; 82270; 82550; 82553; 82607; 82728; 82746; 82803; 82962; 83020; 83036; 83540; 83550; 83615; 83735; 83880; 83921; 84100; 84132; 84443; 84484; 84550; 85007; 85025; 85044; 85060; 85384; 86140; 86580; 86703; 86705; 86706; 86707; 86709; 86803; 86850; 86900; 86901; 86920; 87040; 87070; 87081; 87181; 87205; 87340; 93005; 93306; 94664; 94760; J1815; J2405

== ENCOUNTER 2019-06-23 10:33 | Inpatient (IN) | payer MEDICAID ==
[~2019-06-23] VITALS: Ht 147.3 cm; Wt 46.7 kg
[~2019-06-23 10:33] MED LIST: ATENOLOL25 MG ORAL; CEFDINIR300 MG PO; HYDRALAZINE HCL25 M2 PO; LEXAPRO10 MG ORAL; LOPRESSOR25 M1 ORAL; NEXIUM20 MG ORAL; PROCARDIA XL30 MG ORAL; SYNTHROID100 MCG ORAL; TENORMIN25 MG ORAL
[2019-06-23 10:46] VITALS: BP 123/58
--- NOTE | 2019-06-23 10:56 | NUR ---
ED Nurse Note: Pt walked in due to coughing x 2 days. Denies fever or chills. No reports of CP. Noted intermittent dry coughing. AAO x4 and ambulatory. Dialysis pt and AV fistula on left upper.
--- NOTE | 2019-06-23 12:00 | NUR ---
saline lock in left hand venous blood send to lab
[2019-06-23 12:17] LABS: HEMATOCRIT 44.3 % (37.0-47.0); HEMOGLOBIN 13.8 G/DL (12.0-16.0); MEAN CORPUSCULAR VOLUME 83 FL (80-99); PLATELET COUNT 160 K/UL (150-450); RED BLOOD COUNT 5.32 M/UL (4.20-5.40); RED CELL DISTRIBUTION WIDTH 16.8 % (11.6-14.8); WHITE BLOOD COUNT 3.4 K/UL (4.8-10.8)
--- NOTE | 2019-06-23 12:25 | Diagnostic Imaging Report ---
Indication: Cough Technique: One view of the chest Comparison: 01/20/2017 Findings: Interim development of bilateral basilar and midlung reticular mostly interstitial infiltrates. There is some atelectasis and possibly focal airspace consolidation in the left midlung in right lung base. Surgical clips are seen in the left axilla. The heart size is upper limits normal. Impression: Bilateral mostly interstitial disease with some focal airspace consolidation as well. Findings are concerning for pneumonia. Pulmonary edema also a possibility
[2019-06-23 12:30] VITALS: BP 110/64
[2019-06-23 12:32] LABS: ANION GAP 16 mmol/L (5-15); BLOOD UREA NITROGEN 45 mg/dL (7-18); CALCIUM 9.2 MG/DL (8.5-10.1); CARBON DIOXIDE 26 MMOL/L (21-32); CHLORIDE 94 MMOL/L (98-107); CREATININE 9.9 MG/DL (0.55-1.30); POTASSIUM 4.3 MMOL/L (3.5-5.1); SODIUM 136 MMOL/L (136-145)
[2019-06-23 12:37] LABS: ALANINE AMINOTRANSFERASE 24 U/L (12-78); ALBUMIN 3.4 G/DL (3.4-5.0); ALBUMIN/GLOBULIN RATIO 0.7 (1.0-2.7); ALKALINE PHOSPHATASE 117 U/L (46-116); ASPARTATE AMINO TRANSFERASE 75 U/L (15-37); BILIRUBIN,TOTAL 0.4 MG/DL (0.2-1.0)
--- NOTE | 2019-06-23 13:00 | Emergency Room Report ---
History of Present Illness General Chief Complaint: Upper Respiratory Illness Source: Medical Record Present Illness HPI 43-year-old female presents ED complaining of cough for the last 2 days. States the cough is very mild. Denies phlegm. Denies fevers or chills. Denies chest pain or shortness of breath. History of end-stage renal disease on dialysis. Is compliant with her dialysis. No other aggravating relieving factors. Denies any other associated symptoms Allergies: Coded Allergies: PENICILLINS (Verified Allergy, Unknown, 01/30/17) hives 01/30/17: ITCHING WITH ZOSYN COVID-19 Screening Contact w/high risk pt: No Recent Travel to affected area: No Experienced COVID-19 symptoms?: Yes COVID-19 symptoms experienced: Cough Patient History Past Medical History: DM, HTN, renal disease, dialysis Past Surgical History: none Pertinent Family History: none Social History: Denies: smoking, alcohol use, drug use Now: No Immunizations: UTD Reviewed Nursing Documentation: PMH: Agreed; PSxH: Agreed Nursing Documentation-PMH Past Medical History: No History, Except For Hx Cardiac Problems: Yes Hx Hypertension: Yes Hx Diabetes: Yes Hx Cancer: No Hx Gastrointestinal Problems: Yes Hx Dialysis: Yes - SINCE 7 YEARS AGO Hx Neurological Problems: No Review of Systems All Other Systems: negative except mentioned in HPI Physical Exam Vital Signs Date Time Temp Pulse Resp B/P (MAP) Pulse Ox O2 Delivery O2 Flow Rate FiO2 06/23/19 10:46 99.3 85 20 123/58 (79) 85 Room Air Sp02 EP Interpretation: reviewed, normal General Appearance: no apparent distress, alert, GCS 15, non-toxic Head: normocephalic, atraumatic Eyes: bilateral eye normal inspection, bilateral eye PERRL ENT: hearing grossly normal, normal pharynx, no angioedema, normal voice Neck: full range of motion, supple/symm/no masses Respiratory: chest non-tender, crackles, speaking full sentences Cardiovascular #1: regular rate, rhythm, no edema Cardiovascular #2: 2+ carotid (R), 2+ carotid (L), 2+ radial (R), 2+ radial (L) , 2+ dorsalis pedis (R), 2+ dorsalis pedis (L) Gastrointestinal: normal bowel sounds, non tender, soft, non-distended, no guarding, no rebound Rectal: deferred Genitourinary: normal inspection, no CVA tenderness Musculoskeletal: back normal, normal range of motion, gait/station normal, non- tender Neurologic: alert, motor strength/tone normal, oriented x3, sensory intact, responsive, speech normal Psychiatric: judgement/insight normal, memory normal, mood/affect normal, no suicidal/homicidal ideation Reflexes: 3+ bicep (R), 3+ bicep (L), 3+ tricep (R), 3+ tricep (L), 3+ knee (R) , 3+ knee (L) Skin: other - see nursing skin notes Lymphatic: no adenopathy Medical Decision Making Diagnostic Impression: Primary Impression: ESRD (end stage renal disease) on dialysis Additional Impressions: Pneumonia Qualified Codes: J18.9 - Pneumonia, unspecified organism COVID-19 ER Course Hospital Course 43-year-old female presents with cough x2 days. History of end-stage renal disease Differential diagnoses include: Pneumonia, CHF exacerbation, pneumothorax, fluid overload Clinical course Patient placed in isolation tent. I wore full PPE. After initial history and physical I ordered chest x-ray. X-ray shows bilateral diffuse infiltrates. Patient moved to isolation room in ED. I ordered EKG labs Labs -leukopenia noted, hemoglobin/hematocrit stable, BUN/Cr elevated, K 4.3, lactic 2.5, trop 0.022 EKG - NSR no acute ischemic changes intepreted by me CXR -bilateral infiltrates Concern for COVID. Swab sent. Family called later to state that patient did in fact test positive for COVID saturating well on nasal cannula. No signs of distress. Case discussed with Dr. Waller and he agreed to the patient to his service for further care and support. Dr Her will consult for nephrology I feel this is a highly complex case requiring extensive working including EKG/ Rhythm strip, Xray/CT/US, Blood/urine lab work, repeat exams while in ED, and administration of strong opiates/narcotics for pain control, admission to hospital or close patient follow up. Diagnosis - pneumonia, COVID 19, ESRD on dialysis Patient admitted to floor in serious condition Labs Test 06/23/19 11:45 06/23/19 13:40 White Blood Count 3.4 K/UL (4.8-10.8) Red Blood Count 5.32 M/UL (4.20-5.40) Hemoglobin 13.8 G/DL (12.0-16.0) Hematocrit 44.3 % (37.0-47.0) Mean Corpuscular Volume 83 FL (80-99) Mean Corpuscular Hemoglobin 26.0 PG (27.0-31.0) Mean Corpuscular Hemoglobin Concent 31.2 G/DL (32.0-36.0) Red Cell Distribution Width 16.8 % (11.6-14.8) Platelet Count 160 K/UL (150-450) Mean Platelet Volume 7.6 FL (6.5-10.1) Neutrophils (%) (Auto) % (45.0-75.0) Lymphocytes (%) (Auto) % (20.0-45.0) Monocytes (%) (Auto) % (1.0-10.0) Eosinophils (%) (Auto) % (0.0-3.0) Basophils (%) (Auto) % (0.0-2.0) Differential Total Cells Counted 100 Neutrophils % (Manual) 74 % (45-75) Lymphocytes % (Manual) 23 % (20-45) Monocytes % (Manual) 3 % (1-10) Eosinophils % (Manual) 0 % (0-3) Basophils % (Manual) 0 % (0-2) Band Neutrophils 0 % (0-8) Platelet Estimate Adequate Platelet Morphology Normal Anisocytosis 1+ Sodium Level 136 MMOL/L (136-145) Potassium Level 4.3 MMOL/L (3.5-5.1) Chloride Level 94 MMOL/L (98-107) Carbon Dioxide Level 26 MMOL/L (21-32) Anion Gap 16 mmol/L (5-15) Blood Urea Nitrogen 45 mg/dL (7-18) Creatinine 9.9 MG/DL (0.55-1.30) Estimat Glomerular Filtration Rate 4.3 mL/min (>60) Glucose Level 184 MG/DL (74-106) Lactic Acid Level 2.50 mmol/L (0.4-2.0) 1.40 mmol/L (0.66-2.22) Calcium Level 9.2 MG/DL (8.5-10.1) Total Bilirubin 0.4 MG/DL (0.2-1.0) Aspartate Amino Transf (AST/SGOT) 75 U/L (15-37) Alanine Aminotransferase (ALT/SGPT) 24 U/L (12-78) Alkaline Phosphatase 117 U/L (46-116) Troponin I 0.022 ng/mL (0.000-0.056) Pro-B-Type Natriuretic Peptide > 91948 pg/mL (0-125) Total Protein 8.2 G/DL (6.4-8.2) Albumin 3.4 G/DL (3.4-5.0) Globulin 4.8 g/dL Albumin/Globulin Ratio 0.7 (1.0-2.7) EKG Diagnostic Results Rate: normal Rhythm: NSR ST Segments: other - twave inversions in lateral leads ASA given to the pt in ED: No Rhythm Strip Diag. Results EP Interpretation: yes Rhythm: NSR, no PVC's, no ectopy Chest X-Ray Diagnostic Results Chest X-Ray Diagnostic Results : Chest X-Ray Ordered: Yes # of Views/Limited/Complete: 1 View Indication: Shortness of Breath EP Interpretation: Yes Interpretation: no pneumothorax, other - bilateral infiltrates Impression: Other - pneumonia Electronically Signed by: Electronically signed by Rafa Dey MD Last Vital Signs Date Time Temp Pulse Resp B/P (MAP) Pulse Ox O2 Delivery O2 Flow Rate FiO2 06/23/19 10:56 85 20 Room Air 06/23/19 10:46 99.3 123/58 85 Status: improved Disposition: ADMITTED INPATIENT Condition: Serious Referrals: Rufus Mo MD (PCP) Rafa Dey MD Jun 23, 2019 13:00
[2019-06-23] MEDS ORDERED: Azithromycin 500 MG in NS 275 ML IV ONE (13:15)
[2019-06-23] MEDS ORDERED: cefTRIAXone 1 GM in NS 55 ML IVPB ONE (13:15)
--- NOTE | 2019-06-23 13:45 | NUR ---
ED Nurse Note: Lactic reflex sent to labs.
[2019-06-23 14:38] VITALS: BP 115/66
--- NOTE | 2019-06-23 14:40 | Consultation ---
Consult Note Consult Note Patient under my care for her dialysis management She is dialyzed Friday at the [facility] unit I last saw the patient on June 21 She was on isolation because of coughing Patient has been coughing for more than a week with occasional fever She was summoned to go to emergency room when her symptoms started however refused to do so until yesterday She apparently had a COVID-19 test which appeared to be positive in [facility] Patient is now in the emergency room for admission In her last admission with Dr. Waller he was the primary physician who graciously agreed to assume primary care again on this admission I discussed the case with Dr. Vallecillo the ER physician Emergency room note 3-year-old female presents ED complaining of cough for the last 2 days. States the cough is very mild. Denies phlegm. Denies fevers or chills. Denies chest pain or shortness of breath. History of end-stage renal disease on dialysis. Is compliant with her dialysis. No other aggravating relieving factors. Denies any other associated symptoms Allergies: PENICILLINS (Verified Allergy, Unknown, 01/30/17) hives 01/30/17: ITCHING WITH ZOSYN COVID-19 Screening Contact w/high risk pt: No Recent Travel to affected area: No Experienced COVID-19 symptoms?: Yes COVID-19 symptoms experienced: Cough Patient History Past Medical History: DM, HTN, renal disease, dialysis Past Surgical History: none Pertinent Family History: none Social History: Denies: smoking, alcohol use, drug use Now: No Immunizations: UTD Reviewed Nursing Documentation: PMH: Agreed; PSxH: Agreed Nursing Documentation-PMH Past Medical History: No History, Except For Hx Cardiac Problems: Yes Hx Hypertension: Yes Hx Diabetes: Yes Her mother is also on dialysis that interestHx Gastrointestinal Problems: Yes Hx Dialysis: Yes - SINCE 7 YEARS AGO Assessment/Plan COVID-19 infection/pneumonia End-stage renal disease on hemodialysis 3 times a week Hypertension Diabetes mellitus Management per ID Hemodialysis in a.m. Keep the blood pressure in check Renal diet Rufus Mo MD Jun 23, 2019 14:40
--- NOTE | 2019-06-23 15:05 | NUR ---
ED Nurse Note: Pt on bed, aaox4, VSS, on RA, denies any pain nor discomfort as of now.
--- NOTE | 2019-06-23 15:07 | History & Physical ---
History and Physical History & Physicial Patient seen and examined. Full Dictation completed. Wally Waller MD Jun 23, 2019 15:07
[2019-06-23] MEDS: Heparin 5000 units/ml inj SUBQ SCH (15:54)
--- NOTE | 2019-06-23 16:29 | Consultation ---
History of Present Illness General Chief Complaint: Upper Respiratory Illness Referring physician: Dr. Waller Reason for Consultation: COVID-19 acute respiratory illness Present Illness HPI 43 y/o ESRD on HD with over one week of cough with fever with increasing shortness of breath admitted with outside positive COVID-19 PCR. Noted w/ b/l infiltrates. Tolerating room air in emergency department. Allergies: Coded Allergies: PENICILLINS (Verified Allergy, Unknown, 01/30/17) hives 01/30/17: ITCHING WITH ZOSYN Medication History Scheduled Cefdinir (Cefdinir), 300 MG PO q48hr, (Reported) Escitalopram Oxalate* (Lexapro*), 10 MG ORAL DAILY, (Reported) Esomeprazole Magnesium (Nexium), 20 MG ORAL DAILY, (Reported) Hydralazine HCl (Hydralazine HCl), 25 MG PO Q8HR, (Reported) Levothyroxine Sodium* (Synthroid*), 100 MCG ORAL DAILY, (Reported) Metoprolol Tartrate (Metoprolol Tartrate), 25 MG ORAL BID, (Reported) Patient History Limited by: medical condition History Provided By: Medical Record Healthcare decision maker Resuscitation status Advanced Directive on File Review of Systems All Other Systems: negative except mentioned in HPI Physical Exam Physical Exam Narrative Exam deferred due to isolation status and PPE conservation with current pandemic. Last 24 Hour Vital Signs Date Time Temp Pulse Resp B/P (MAP) Pulse Ox O2 Delivery O2 Flow Rate FiO2 06/23/19 14:38 99.3 80 18 115/66 99 Room Air 06/23/19 12:30 99.3 82 22 110/64 100 Room Air 06/23/19 10:56 85 20 Room Air 06/23/19 10:46 99.3 85 20 123/58 85 Room Air 06/23/19 10:46 99.3 85 20 123/58 (79) 85 Room Air Laboratory Tests Test 06/23/19 11:45 06/23/19 13:40 White Blood Count 3.4 K/UL (4.8-10.8) L Red Blood Count 5.32 M/UL (4.20-5.40) Hemoglobin 13.8 G/DL (12.0-16.0) Hematocrit 44.3 % (37.0-47.0) Mean Corpuscular Volume 83 FL (80-99) Mean Corpuscular Hemoglobin 26.0 PG (27.0-31.0) L Mean Corpuscular Hemoglobin Concent 31.2 G/DL (32.0-36.0) L Red Cell Distribution Width 16.8 % (11.6-14.8) H Platelet Count 160 K/UL (150-450) Mean Platelet Volume 7.6 FL (6.5-10.1) Neutrophils (%) (Auto) % (45.0-75.0) Lymphocytes (%) (Auto) % (20.0-45.0) Monocytes (%) (Auto) % (1.0-10.0) Eosinophils (%) (Auto) % (0.0-3.0) Basophils (%) (Auto) % (0.0-2.0) Differential Total Cells Counted 100 Neutrophils % (Manual) 74 % (45-75) Lymphocytes % (Manual) 23 % (20-45) Monocytes % (Manual) 3 % (1-10) Eosinophils % (Manual) 0 % (0-3) Basophils % (Manual) 0 % (0-2) Band Neutrophils 0 % (0-8) Platelet Estimate Adequate Platelet Morphology Normal Anisocytosis 1+ Sodium Level 136 MMOL/L (136-145) Potassium Level 4.3 MMOL/L (3.5-5.1) Chloride Level 94 MMOL/L (98-107) L Carbon Dioxide Level 26 MMOL/L (21-32) Anion Gap 16 mmol/L (5-15) H Blood Urea Nitrogen 45 mg/dL (7-18) H Creatinine 9.9 MG/DL (0.55-1.30) H Estimat Glomerular Filtration Rate 4.3 mL/min (>60) Glucose Level 184 MG/DL (74-106) H Lactic Acid Level 2.50 mmol/L (0.4-2.0) H 1.40 mmol/L (0.66-2.22) Calcium Level 9.2 MG/DL (8.5-10.1) Total Bilirubin 0.4 MG/DL (0.2-1.0) Aspartate Amino Transf (AST/SGOT) 75 U/L (15-37) H Alanine Aminotransferase (ALT/SGPT) 24 U/L (12-78) Alkaline Phosphatase 117 U/L (46-116) H Troponin I 0.022 ng/mL (0.000-0.056) Pro-B-Type Natriuretic Peptide > 35094 pg/mL (0-125) H Total Protein 8.2 G/DL (6.4-8.2) Albumin 3.4 G/DL (3.4-5.0) Globulin 4.8 g/dL Albumin/Globulin Ratio 0.7 (1.0-2.7) L Microbiology Date/Time Source Procedure Growth Status 06/23/19 12:20 Nasal Nares - Final Complete 06/23/19 12:20 Nasal Nares - Final Complete Height (Feet): 4 Height (Inches): 10.00 Weight (Pounds): 100 Medications Current Medications Medications (Trade) Dose Ordered Sig/Sarah Route PRN Reason Start Time Stop Time Status Last Admin Dose Admin Albuterol/ Ipratropium (Albuterol/ Ipratropium) 3 ml Q6HRT HHN 06/23/19 19:00 06/28/19 18:59 UNV Azithromycin 250 mg/Sodium Chloride 275 ml @ 275 mls/hr ONCE ONCE IV 06/23/19 15:15 06/23/19 16:14 UNV Clonidine HCl (Catapres Tab) 0.1 mg Q4H PRN ORAL BP over 160 systolic 06/23/19 15:00 09/21/19 14:59 Docusate Sodium (Colace) 100 mg TID ORAL 06/23/19 18:00 07/23/19 17:59 Heparin Sodium (Porcine) (Heparin 5000 units/ml) 5,000 units EVERY 12 HOURS SUBQ 06/23/19 15:45 08/07/19 15:44 06/23/19 15:54 Hydralazine HCl (Apresoline) 10 mg Q8HR ORAL 06/23/19 22:00 09/21/19 21:59 Pantoprazole (Protonix) 40 mg BID ORAL 06/23/19 18:00 07/23/19 17:59 Assessment/Plan Assessment/Plan: Problem List: * COVID-19 acute respiratory illness * bilateral pulmonary infiltrates, potential also for HCAP * Mild transaminitis * ESRD on HD Plan: * Close monitoring of respiratory status and oxygen needs, currently room air * ID to evaluate, abx given in ED * Montior volumes, HD per renal * trend CRP, ferritin * Check ddimer, LDH * No plans on use of experimental hydroxychloroquine as unclear if this is truly providing a benefit * Monitor blood pressure Chong Bernal MD Jun 23, 2019 16:29
[2019-06-23 16:51] VITALS: BP 115/66
--- NOTE | 2019-06-23 18:00 | NUR ---
ED Nurse Note: Offered dinner tray to pt.
[2019-06-23] MEDS: Docusate 100mg cap ORAL SCH (18:10)
[2019-06-23 18:21] VITALS: BP 150/81
[2019-06-23] MEDS ORDERED: Albuterol/Ipratropium 3ml neb HHN SCH (19:00)
--- NOTE | 2019-06-23 19:12 | NUR ---
ED Nurse Note: Hand off given to Dianna WELLER for continuity of care.
--- NOTE | 2019-06-23 20:30 | NUR ---
ED Nurse Note: pt states she only makes a small amount of urine, unable to provide a sample at this time
--- NOTE | 2019-06-23 20:53 | NUR ---
ED Nurse Note: report given to RN
[2019-06-23] MEDS ORDERED: HydrALAZINE 10mg Tab ORAL SCH (22:00)
--- NOTE | 2019-06-23 22:20 | NUR ---
TRANSFER TO FLOOR: Patient transferred to med/surg in stable condition as ordered, per ERMD. Report given to NITHIN Dominguez . Belongings were sent to the floor with pt
--- NOTE | 2019-06-23 22:30 | History and Physical Report ---
DATE OF ADMISSION: 06/23/2019 SOURCE OF INFORMATION: Patient and EMR. HISTORY OF PRESENT ILLNESS: Patient is a pleasant 43-year-old female with a history of end-stage renal disease. Patient had performed outpatient COVID test secondary to asymptomatic fever. Patient started to show cough and in addition tested positive. Patient presented to the emergency room. Initial evaluation shows a chest x-ray with prominent interstitial findings in the lung. At the time of evaluation, patient denies any fever or chills, however complaining of persistent dry cough for the last 3 to 4 days. No nausea. No vomitus. No diarrhea. No constipation. REVIEW OF SYSTEMS: All 14 elements of review of systems reviewed. Pertinent positive and negative as above. ALLERGY: Penicillin. FAMILY HISTORY: Reviewed and noncontributory. SOCIAL HISTORY: Patient is single. No children. Patient lives at home with family. Denies history of illicit drug abuse, smoking, or alcohol abuse. PAST MEDICAL AND SURGICAL HISTORY: Including end-stage renal disease on hemodialysis, right-sided AV graft/fistula in place, psychiatric disease, hypertension, hypothyroidism. PHYSICAL EXAMINATION: VITAL SIGNS: Blood pressure 120/80, temperature 98.2, pulse oximetry 85% on room air, respiratory rate 18, temperature 99.3. HEAD AND NECK: Atraumatic and normocephalic. CHEST: Diffuse bronchial breathing sounds. HEART: S1, S2. Regular rate and rhythm. ABDOMEN: Soft. No organomegaly. MUSCULOSKELETAL: Positive for the right lesly with AV graft in place. NEUROLOGY: Awake, alert, oriented x3. LABORATORY DATA: Dated June 22 shows WBC 3.4, platelet 160, AST 75. ASSESSMENT: 1. Pneumonia secondary to COVID-19. 2. Hypoxemic respiratory failure. Continue with nasal oxygen. 3. End-stage renal disease, on hemodialysis. 4. Abnormal blood sugar. 5. Hypertension. 6. Hypothyroidism. 7. GI and DVT prophylaxis. PLAN OF CARE: I agree with the admission to med-surg. Continue with the current oxygen supplements and supportive managements. Hemodialysis per rib cutter. Case discussed with rib cutter in details. We will consult Pulmonary, Dr. Morales and Cardiology, Dr. No. Mohammad Rezvani, M.D. DR: LUANA JOB#: [id number] CC:
[2019-06-23] MEDS ORDERED: Albuterol 90mcg Inhaler 8gm INH PRN (23:00)
[2019-06-24] VITALS (7 sets, daily range): BP systolic 65–146; BP diastolic 31–79
[2019-06-24] MEDS: Guaifenesin/DM 10ml syrup ORAL PRN ×2 (00:22→10:10)
[2019-06-24] MEDS: Heparin 5000 units/ml inj SUBQ SCH ×3 (00:33→21:00)
--- NOTE | 2019-06-24 01:38 | NUR ---
NURSE NOTES: Received patient from ED on wheelchair assisted by a staff, with mask on and covered with a blanket. Alert and oriented x4, ambulatory-steady. No complaints of pain upon admission. With AV shunt on the right arm, precautions posted and bedside teaching done to the patient. With IV on left hand g. 20. Spoke to Dr. Waller and obtained some orders for admission including patient's request of cough medicine. No acute respiratory distress noted. Inhaler not available. Respiratory therapist made aware. Oriented to room. Instructed the use of call light for assistance. Bed in lowest and lock engaged. Safety measures applied. Will monitor.
[2019-06-24 05:48] LABS: BASOPHILS % (AUTO) 0.8 % (0.0-2.0); EOSINOPHILS % (AUTO) 0.3 % (0.0-3.0); HEMATOCRIT 39.9 % (37.0-47.0); HEMOGLOBIN 12.7 G/DL (12.0-16.0); LYMPHOCYTES % (AUTO) 14.5 % (20.0-45.0); MEAN CORPUSCULAR VOLUME 84 FL (80-99); MONOCYTES % (AUTO) 6.7 % (1.0-10.0); NEUTROPHILS % (AUTO) 77.8 % (45.0-75.0); PLATELET COUNT 144 K/UL (150-450); RED BLOOD COUNT 4.77 M/UL (4.20-5.40); RED CELL DISTRIBUTION WIDTH 16.9 % (11.6-14.8); WHITE BLOOD COUNT 3.5 K/UL (4.8-10.8)
--- NOTE | 2019-06-24 07:43 | NUR ---
HAND-OFF: Report given to NITHIN Fitch.
[2019-06-24 07:50] LABS: ALANINE AMINOTRANSFERASE 24 U/L (12-78); ALBUMIN 3.1 G/DL (3.4-5.0); ALBUMIN/GLOBULIN RATIO 0.7 (1.0-2.7); ALKALINE PHOSPHATASE 101 U/L (46-116); ANION GAP 16 mmol/L (5-15); ASPARTATE AMINO TRANSFERASE 62 U/L (15-37); BILIRUBIN,TOTAL 0.5 MG/DL (0.2-1.0); BLOOD UREA NITROGEN 60 mg/dL (7-18); CALCIUM 9.4 MG/DL (8.5-10.1); CARBON DIOXIDE 25 MMOL/L (21-32); CHLORIDE 97 MMOL/L (98-107); CREATINE KINASE 51 U/L (26-308); CREATININE 12.1 MG/DL (0.55-1.30); FERRITIN 141 NG/ML (8-388); GAMMA GLUTAMYL TRANSPEPTIDASE 40 U/L (5-85); LACTATE DEHYDROGENASE 439 U/L (81-234); PHOSPHORUS 5.5 MG/DL (2.5-4.9); POTASSIUM 4.4 MMOL/L (3.5-5.1); SODIUM 138 MMOL/L (136-145)
[2019-06-24 07:54] LABS: % IRON SATURATION 23 % (15-50); IRON 37 ug/dL (50-175); TOTAL IRON BINDING CAPACITY 164 ug/dL (250-450)
[2019-06-24] MEDS: HydrALAZINE 10mg Tab ORAL SCH ×2 (08:00→16:00)
--- NOTE | 2019-06-24 08:26 | NUR ---
NURSE NOTES: Patient alert and oriented,respirations unlabored.patient has dialysis AV shunt to the upper right arm with strong bruit and thrill.patient schedule for Dialysis today. Call light within reach.
--- NOTE | 2019-06-24 09:45 | Pulmonology Progress Note ---
Bryan Catherine VP SECURITY 06/24/19 0945: Assessment/Plan Assessment/Plan Problem List: * COVID-19 acute respiratory illness * bilateral pulmonary infiltrates, potential also for HCAP * Mild transaminitis * ESRD on HD * E/lyte imbalance * HTN * Psychiatric disorder Plan: * Close monitoring of respiratory status and oxygen needs, currently on room air * ID to evaluate, abx given in ED * Will fup with CXR , * MDR with spacer prn * COVID 19 swab sent in ER 06/22 , f/up with resutls, prior COVID infection conformed by family , keep in isolation * A/tussive prn * Monitor volumes, HD per renal * trend CRP, ferritin * Check D dimer, LDH * No plans on use of experimental hydroxychloroquine as unclear if this is truly providing a benefit * Monitor blood pressure, on Hydralazine currently * DVT prophylaxis case discussed and evaluated by supervising physician Subjective Allergies: Coded Allergies: PENICILLINS (Verified Allergy, Unknown, 01/30/17) hives 01/30/17: ITCHING WITH ZOSYN Subjective on RA, pulse ox stable, no fevers Hungarian speaking denies resp difficulties easily frustrated and become anxious Objective Last 24 Hour Vital Signs Date Time Temp Pulse Resp B/P (MAP) Pulse Ox O2 Delivery O2 Flow Rate FiO2 06/24/19 06:45 Nasal Cannula 2.0 06/24/19 04:00 97.9 79 18 117/50 (72) 93 06/24/19 00:55 97.9 06/24/19 00:25 146/69 06/24/19 00:00 101.1 89 22 146/69 (94) 93 06/23/19 22:20 99.3 84 18 150/81 99 Room Air 06/23/19 18:21 99.3 84 18 150/81 99 Room Air 06/23/19 16:51 99.3 78 18 115/66 99 Room Air 06/23/19 14:38 99.3 80 18 115/66 99 Room Air 06/23/19 12:30 99.3 82 22 110/64 100 Room Air 06/23/19 10:56 85 20 Room Air 06/23/19 10:46 99.3 85 20 123/58 85 Room Air 06/23/19 10:46 99.3 85 20 123/58 (79) 85 Room Air General Appearance: no acute distress HEENT: normocephalic, atraumatic, anicteric, mucous membranes moist, PERRL Respiratory/Chest: lungs clear, no respiratory distress, no accessory muscle use Cardiovascular: normal rate, regular rhythm, no JVD Abdomen: normal bowel sounds, soft, non tender, non distended Extremities: no edema, pedal pulses normal 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: alert, responsive Musculoskeletal: normal muscle bulk Microbiology Date/Time Source Procedure Growth Status 06/23/19 12:20 Nasal Nares - Final Complete 06/23/19 12:20 Nasal Nares - Final Complete Laboratory Tests 06/23/19 11:45: White Blood Count 3.4L, Red Blood Count 5.32, Hemoglobin 13.8, Hematocrit 44.3, Mean Corpuscular Volume 83, Mean Corpuscular Hemoglobin 26.0L, Mean Corpuscular Hemoglobin Concent 31.2L, Red Cell Distribution Width 16.8H, Platelet Count 160 , Mean Platelet Volume 7.6, Neutrophils (%) (Auto) , Lymphocytes (%) (Auto) , Monocytes (%) (Auto) , Eosinophils (%) (Auto) , Basophils (%) (Auto) , Differential Total Cells Counted 100, Neutrophils % (Manual) 74, Lymphocytes % ( Manual) 23, Monocytes % (Manual) 3, Eosinophils % (Manual) 0, Basophils % ( Manual) 0, Band Neutrophils 0, Platelet Estimate Adequate, Platelet Morphology Normal, Anisocytosis 1+, Sodium Level 136, Potassium Level 4.3, Chloride Level 94L, Carbon Dioxide Level 26, Anion Gap 16H, Blood Urea Nitrogen 45H, Creatinine 9.9H, Estimat Glomerular Filtration Rate 4.3, Glucose Level 184H, Lactic Acid Level 2.50H, Calcium Level 9.2, Total Bilirubin 0.4, Aspartate Amino Transf (AST/SGOT) 75H, Alanine Aminotransferase (ALT/SGPT) 24, Alkaline Phosphatase 117H, Troponin I 0.022, Pro-B-Type Natriuretic Peptide > 22128C, Total Protein 8.2, Albumin 3.4, Globulin 4.8, Albumin/Globulin Ratio 0.7L 06/23/19 13:40: Lactic Acid Level 1.40 06/24/19 05:10: White Blood Count 3.5L, Red Blood Count 4.77, Hemoglobin 12.7, Hematocrit 39.9, Mean Corpuscular Volume 84, Mean Corpuscular Hemoglobin 26.7L, Mean Corpuscular Hemoglobin Concent 31.9L, Red Cell Distribution Width 16.9H, Platelet Count 144L , Mean Platelet Volume 7.6, Neutrophils (%) (Auto) 77.8H, Lymphocytes (%) (Auto ) 14.5L, Monocytes (%) (Auto) 6.7, Eosinophils (%) (Auto) 0.3, Basophils (%) ( Auto) 0.8, Sodium Level 138, Potassium Level 4.4, Chloride Level 97L, Carbon Dioxide Level 25, Anion Gap 16H, Blood Urea Nitrogen 60H, Creatinine 12.1H, Estimat Glomerular Filtration Rate 3.4, Glucose Level 100, Lactic Acid Level 1.00, Calcium Level 9.4, Total Bilirubin 0.5, Aspartate Amino Transf (AST/SGOT) 62H, Alanine Aminotransferase (ALT/SGPT) 24, Alkaline Phosphatase 101, Troponin I 0.020, Pro-B-Type Natriuretic Peptide > 90570L, Total Protein 7.6, Albumin 3.1L, Globulin 4.5, Albumin/Globulin Ratio 0.7L, D-Dimer 0.94H, Hemoglobin A1c 5.1, Uric Acid 7.5H, Phosphorus Level 5.5H, Magnesium Level 2.7H, Iron Level 37L , Total Iron Binding Capacity 164L, Percent Iron Saturation 23, Unsaturated Iron Binding 127, Ferritin 141, Gamma Glutamyl Transpeptidase 40, Lactate Dehydrogenase 439H, Total Creatine Kinase 51, C-Reactive Protein, Quantitative 17.6H, Folate 18.0, Thyroid Stimulating Hormone (TSH) 0.853, Cortisol AM Sample [Pending] Current Medications Medications (Trade) Dose Ordered Sig/Sarah Route PRN Reason Start Time Stop Time Status Last Admin Dose Admin Acetaminophen (Tylenol) 650 mg Q4H PRN ORAL Temp >100.5 / mild pain 1-3 06/23/19 23:00 07/23/19 22:59 06/24/19 00:25 Albuterol Sulfate (Proventil MDI) 2 puff Q4H PRN INH Shortness of Breath 06/23/19 23:00 09/21/19 22:59 Albuterol/ Ipratropium (Combivent Respimat) 1 puff Q6HRT INH 06/24/19 01:00 07/24/19 00:59 Azithromycin 250 mg/Sodium Chloride 275 ml @ 275 mls/hr ONCE ONCE IV 06/25/19 13:00 06/25/19 13:59 Clonidine HCl (Catapres Tab) 0.1 mg Q4H PRN ORAL BP over 160 systolic 06/23/19 15:00 09/21/19 14:59 Docusate Sodium (Colace) 100 mg TID ORAL 06/23/19 18:00 07/23/19 17:59 06/23/19 18:10 Guaifenesin/ Dextromethorphan (Robitussin DM Syrup) 10 ml Q4H PRN ORAL For Cough 06/23/19 23:00 09/21/19 22:59 06/24/19 00:22 Heparin Sodium (Porcine) (Heparin 5000 units/ml) 5,000 units EVERY 12 HOURS SUBQ 06/23/19 15:45 08/07/19 15:44 06/24/19 00:33 Hydralazine HCl (Apresoline) 10 mg Q8H ORAL 06/24/19 08:00 09/22/19 07:59 Pantoprazole (Protonix) 40 mg BID ORAL 06/23/19 18:00 07/23/19 17:59 06/23/19 18:10 Allan Morales MD 06/25/19 1656: Assessment/Plan Assessment/Plan Patient seen and examined, d/w RN and team, agree with plan as outlined about by VP SECURITY, reflects out joint assessment. Subjective Allergies: Coded Allergies: PENICILLINS (Verified Allergy, Unknown, 01/30/17) hives 01/30/17: ITCHING WITH Catherine Barlow VP SECURITY Jun 24, 2019 09:45 Allan Morales MD Jun 25, 2019 16:56
[2019-06-24] MEDS: Docusate 100mg cap ORAL SCH ×3 (10:05→18:00)
--- NOTE | 2019-06-24 10:12 | Nephrology Progress Note ---
Assessment/Plan Problem List: (1) Pneumonia (2) COVID-19 Assessment: CRP and LDH are elevated-ferritin and d-dimer are not elevated (3) ESRD (end stage renal disease) on dialysis (4) HTN (hypertension) Assessment COVID-19 infection/pneumonia End-stage renal disease on hemodialysis 3 times a week Hypertension Diabetes mellitus Plan Management per ID Hemodialysis today Keep the blood pressure in check Renal diet Subjective Constitutional: Reports: malaise, weakness Objective Objective Last 24 Hour Vital Signs Date Time Temp Pulse Resp B/P (MAP) Pulse Ox O2 Delivery O2 Flow Rate FiO2 06/24/19 08:00 120/51 06/24/19 06:45 Nasal Cannula 2.0 06/24/19 04:00 97.9 79 18 117/50 (72) 93 06/24/19 00:55 97.9 06/24/19 00:25 146/69 06/24/19 00:00 101.1 89 22 146/69 (94) 93 06/23/19 22:20 99.3 84 18 150/81 99 Room Air 06/23/19 18:21 99.3 84 18 150/81 99 Room Air 06/23/19 16:51 99.3 78 18 115/66 99 Room Air 06/23/19 14:38 99.3 80 18 115/66 99 Room Air 06/23/19 12:30 99.3 82 22 110/64 100 Room Air 06/23/19 10:56 85 20 Room Air 06/23/19 10:46 99.3 85 20 123/58 85 Room Air 06/23/19 10:46 99.3 85 20 123/58 (79) 85 Room Air Laboratory Tests 06/23/19 11:45: White Blood Count 3.4L, Red Blood Count 5.32, Hemoglobin 13.8, Hematocrit 44.3, Mean Corpuscular Volume 83, Mean Corpuscular Hemoglobin 26.0L, Mean Corpuscular Hemoglobin Concent 31.2L, Red Cell Distribution Width 16.8H, Platelet Count 160 , Mean Platelet Volume 7.6, Neutrophils (%) (Auto) , Lymphocytes (%) (Auto) , Monocytes (%) (Auto) , Eosinophils (%) (Auto) , Basophils (%) (Auto) , Differential Total Cells Counted 100, Neutrophils % (Manual) 74, Lymphocytes % ( Manual) 23, Monocytes % (Manual) 3, Eosinophils % (Manual) 0, Basophils % ( Manual) 0, Band Neutrophils 0, Platelet Estimate Adequate, Platelet Morphology Normal, Anisocytosis 1+, Sodium Level 136, Potassium Level 4.3, Chloride Level 94L, Carbon Dioxide Level 26, Anion Gap 16H, Blood Urea Nitrogen 45H, Creatinine 9.9H, Estimat Glomerular Filtration Rate 4.3, Glucose Level 184H, Lactic Acid Level 2.50H, Calcium Level 9.2, Total Bilirubin 0.4, Aspartate Amino Transf (AST/SGOT) 75H, Alanine Aminotransferase (ALT/SGPT) 24, Alkaline Phosphatase 117H, Troponin I 0.022, Pro-B-Type Natriuretic Peptide > 03480D, Total Protein 8.2, Albumin 3.4, Globulin 4.8, Albumin/Globulin Ratio 0.7L 06/23/19 13:40: Lactic Acid Level 1.40 06/24/19 05:10: White Blood Count 3.5L, Red Blood Count 4.77, Hemoglobin 12.7, Hematocrit 39.9, Mean Corpuscular Volume 84, Mean Corpuscular Hemoglobin 26.7L, Mean Corpuscular Hemoglobin Concent 31.9L, Red Cell Distribution Width 16.9H, Platelet Count 144L , Mean Platelet Volume 7.6, Neutrophils (%) (Auto) 77.8H, Lymphocytes (%) (Auto ) 14.5L, Monocytes (%) (Auto) 6.7, Eosinophils (%) (Auto) 0.3, Basophils (%) ( Auto) 0.8, Sodium Level 138, Potassium Level 4.4, Chloride Level 97L, Carbon Dioxide Level 25, Anion Gap 16H, Blood Urea Nitrogen 60H, Creatinine 12.1H, Estimat Glomerular Filtration Rate 3.4, Glucose Level 100, Lactic Acid Level 1.00, Calcium Level 9.4, Total Bilirubin 0.5, Aspartate Amino Transf (AST/SGOT) 62H, Alanine Aminotransferase (ALT/SGPT) 24, Alkaline Phosphatase 101, Troponin I 0.020, Pro-B-Type Natriuretic Peptide > 94932N, Total Protein 7.6, Albumin 3.1L, Globulin 4.5, Albumin/Globulin Ratio 0.7L, D-Dimer 0.94H, Hemoglobin A1c 5.1, Uric Acid 7.5H, Phosphorus Level 5.5H, Magnesium Level 2.7H, Iron Level 37L , Total Iron Binding Capacity 164L, Percent Iron Saturation 23, Unsaturated Iron Binding 127, Ferritin 141, Gamma Glutamyl Transpeptidase 40, Lactate Dehydrogenase 439H, Total Creatine Kinase 51, C-Reactive Protein, Quantitative 17.6H, Folate 18.0, Thyroid Stimulating Hormone (TSH) 0.853, Cortisol AM Sample [Pending] Height (Feet): 4 Height (Inches): 10.00 Weight (Pounds): 100 General Appearance: no apparent distress, alert Cardiovascular: normal rate Respiratory/Chest: decreased breath sounds Abdomen: soft Rufus Mo MD Jun 24, 2019 10:12
--- NOTE | 2019-06-24 10:56 | NUR ---
*-* INSURANCE *-* ALL AVAILABLE CLINICALS HAVE BEEN FAXED TO: [facility] P: [phone] F: [phone] Addendum: 06/28/19 at 0915 by DANIEL DIAZ CM ALISA KENT:BRITTANY REF# [id number] P: [phone] F: [phone]
--- NOTE | 2019-06-24 13:37 | General Progress Note ---
Assessment/Plan Assessment/Plan: S: I am feeling ok O: appears comfortable. mild sob PHYSICAL EXAMINATION: HEAD AND NECK: Atraumatic and normocephalic. CHEST: Diffuse bronchial breathing sounds. HEART: S1, S2. Regular rate and rhythm. ABDOMEN: Soft. No organomegaly. MUSCULOSKELETAL: Positive for the right lesly with AV graft in place. NEUROLOGY: Awake, alert, oriented x3. LABORATORY DATA: Dated June 23 decreased in PLT ASSESSMENT: 1. Pneumonia secondary to COVID-19. 2. Hypoxemic respiratory failure. Continue with nasal oxygen. 3. End-stage renal disease, on hemodialysis. 4. Abnormal blood sugar. 5. Hypertension. 6. Hypothyroidism. 7. GI and DVT prophylaxis. PLAN OF CARE: DC Heparin SCD start Hydroxy D/w ID ( Dr Arnett) Subjective Allergies: Coded Allergies: PENICILLINS (Verified Allergy, Unknown, 01/30/17) hives 01/30/17: ITCHING WITH ZOSYN Objective Last 24 Hour Vital Signs Date Time Temp Pulse Resp B/P (MAP) Pulse Ox O2 Delivery O2 Flow Rate FiO2 06/24/19 12:00 99.7 79 20 130/79 (96) 92 06/24/19 08:00 100.0 73 20 120/51 (74) 93 06/24/19 08:00 120/51 06/24/19 06:45 Nasal Cannula 2.0 06/24/19 04:00 97.9 79 18 117/50 (72) 93 06/24/19 00:55 97.9 06/24/19 00:25 146/69 06/24/19 00:00 101.1 89 22 146/69 (94) 93 06/23/19 22:20 99.3 84 18 150/81 99 Room Air 06/23/19 18:21 99.3 84 18 150/81 99 Room Air 06/23/19 16:51 99.3 78 18 115/66 99 Room Air 06/23/19 14:38 99.3 80 18 115/66 99 Room Air Intake and Output 06/23/19 06/24/19 19:00 07:00 # Bowel Movements 1 Laboratory Tests 06/23/19 13:40: Lactic Acid Level 1.40 06/24/19 05:10: Lactic Acid Level 1.00, White Blood Count 3.5L, Red Blood Count 4.77, Hemoglobin 12.7, Hematocrit 39.9, Mean Corpuscular Volume 84, Mean Corpuscular Hemoglobin 26.7L, Mean Corpuscular Hemoglobin Concent 31.9L, Red Cell Distribution Width 16.9H, Platelet Count 144L, Mean Platelet Volume 7.6, Neutrophils (%) (Auto) 77.8H, Lymphocytes (%) (Auto) 14.5L, Monocytes (%) (Auto ) 6.7, Eosinophils (%) (Auto) 0.3, Basophils (%) (Auto) 0.8, D-Dimer 0.94H, Sodium Level 138, Potassium Level 4.4, Chloride Level 97L, Carbon Dioxide Level 25, Anion Gap 16H, Blood Urea Nitrogen 60H, Creatinine 12.1H, Estimat Glomerular Filtration Rate 3.4, Glucose Level 100, Hemoglobin A1c 5.1, Uric Acid 7.5H, Calcium Level 9.4, Phosphorus Level 5.5H, Magnesium Level 2.7H, Iron Level 37L, Total Iron Binding Capacity 164L, Percent Iron Saturation 23, Unsaturated Iron Binding 127, Ferritin 141, Total Bilirubin 0.5, Gamma Glutamyl Transpeptidase 40, Aspartate Amino Transf (AST/SGOT) 62H, Alanine Aminotransferase (ALT/SGPT) 24, Alkaline Phosphatase 101, Lactate Dehydrogenase 439H, Total Creatine Kinase 51, Troponin I 0.020, C-Reactive Protein, Quantitative 17.6H, Pro-B-Type Natriuretic Peptide > 96545B, Total Protein 7.6, Albumin 3.1L, Globulin 4.5, Albumin/Globulin Ratio 0.7L, Folate 18.0, Thyroid Stimulating Hormone (TSH) 0.853, Cortisol AM Sample 11.3 Height (Feet): 4 Height (Inches): 10.00 Weight (Pounds): 107 Wally Waller MD Jun 24, 2019 13:37
[2019-06-24] MEDS: Renvela 800mg Pkt NG SCH ×2 (13:59→18:37)
[2019-06-24] MEDS ORDERED: Hydroxychloroquine Fact Sheet MISC ONE (14:45)
--- NOTE | 2019-06-24 14:50 | NUR ---
CASE MANAGEMENT:REVIEW 43 YR OLD FEMALE WALKED IN TO ER FROM HOME CC: COUGH X2 DAYS PMH: ESRD ON HD SI: PNEUMONIA. POSSIBLE COVID 19 99.4 85 20 123/58 99% ON RA BUN+45 CR+9.9 BNP+35500 LACTIC ACID+2.5 IS: IV ROCEPHIN X1 IV AZITHROMYCIN X1 BLOOD CX COVID 19 ISOLATION PRECAUTIONS : TO TELEMETRY UNIT DCP: PATIENT IS FROM HOME
--- NOTE | 2019-06-24 15:10 | Infectious Diseases Prog Note ---
Assessment/Plan Problems: (1) PNA (pneumonia) Assessment & Plan: superimposed with CO VID 19 infection, we start vancomycin and aztreonam empirically, send sputum culture monitor chest x-ray. Keep in enhanced droplet isolation (2) COVID-19 Assessment & Plan: tested positive as per the family but we need the result of the test to confirm, agree on hydroxychloroquine for now to be started pending nasopharyngeal PCR test which was sent already and confirmation from the family. Add zinc and vitamin C for five days total keep an enhanced droplet isolation. obtain IL6 level, ferritin, LDH, and Ddimer (3) Fever Assessment & Plan: suspect due to the above continue Tylenol and wide spectrum antibiotics (4) Sepsis Assessment & Plan: due to the above start vancomycin with azactam pending blood culture (5) ESRD (end stage renal disease) on dialysis Assessment & Plan: continue hemodialysis and renally dosed antibiotics as per pharmacy (6) DM II (diabetes mellitus, type II), controlled Assessment & Plan: recommend tight glycemic control to keep blood glucose between [id number] Subjective Allergies: Coded Allergies: PENICILLINS (Verified Allergy, Unknown, 01/30/17) hives 01/30/17: ITCHING WITH ZOSYN Objective Vital Signs Last 24 Hour Vital Signs Date Time Temp Pulse Resp B/P (MAP) Pulse Ox O2 Delivery O2 Flow Rate FiO2 06/24/19 12:00 99.7 79 20 130/79 (96) 92 06/24/19 08:00 100.0 73 20 120/51 (74) 93 06/24/19 08:00 120/51 06/24/19 06:45 Nasal Cannula 2.0 06/24/19 04:00 97.9 79 18 117/50 (72) 93 06/24/19 00:55 97.9 06/24/19 00:25 146/69 06/24/19 00:00 101.1 89 22 146/69 (94) 93 06/23/19 22:20 99.3 84 18 150/81 99 Room Air 06/23/19 18:21 99.3 84 18 150/81 99 Room Air 06/23/19 16:51 99.3 78 18 115/66 99 Room Air Height (Feet): 4 Height (Inches): 10.00 Weight (Pounds): 107 Microbiology Date/Time Source Procedure Growth Status 06/23/19 12:20 Nasal Nares - Final Complete 06/23/19 12:20 Nasal Nares - Final Complete Laboratory Tests Test 06/24/19 05:10 White Blood Count 3.5 K/UL (4.8-10.8) L Red Blood Count 4.77 M/UL (4.20-5.40) Hemoglobin 12.7 G/DL (12.0-16.0) Hematocrit 39.9 % (37.0-47.0) Mean Corpuscular Volume 84 FL (80-99) Mean Corpuscular Hemoglobin 26.7 PG (27.0-31.0) L Mean Corpuscular Hemoglobin Concent 31.9 G/DL (32.0-36.0) L Red Cell Distribution Width 16.9 % (11.6-14.8) H Platelet Count 144 K/UL (150-450) L Mean Platelet Volume 7.6 FL (6.5-10.1) Neutrophils (%) (Auto) 77.8 % (45.0-75.0) H Lymphocytes (%) (Auto) 14.5 % (20.0-45.0) L Monocytes (%) (Auto) 6.7 % (1.0-10.0) Eosinophils (%) (Auto) 0.3 % (0.0-3.0) Basophils (%) (Auto) 0.8 % (0.0-2.0) D-Dimer 0.94 mg/L FEU (0.00-0.49) H Sodium Level 138 MMOL/L (136-145) Potassium Level 4.4 MMOL/L (3.5-5.1) Chloride Level 97 MMOL/L (98-107) L Carbon Dioxide Level 25 MMOL/L (21-32) Anion Gap 16 mmol/L (5-15) H Blood Urea Nitrogen 60 mg/dL (7-18) H Creatinine 12.1 MG/DL (0.55-1.30) H Estimat Glomerular Filtration Rate 3.4 mL/min (>60) Glucose Level 100 MG/DL (74-106) Hemoglobin A1c 5.1 % (4.3-6.0) Lactic Acid Level 1.00 mmol/L (0.4-2.0) Uric Acid 7.5 MG/DL (2.6-7.2) H Calcium Level 9.4 MG/DL (8.5-10.1) Phosphorus Level 5.5 MG/DL (2.5-4.9) H Magnesium Level 2.7 MG/DL (1.8-2.4) H Iron Level 37 ug/dL (50-175) L Total Iron Binding Capacity 164 ug/dL (250-450) L Percent Iron Saturation 23 % (15-50) Unsaturated Iron Binding 127 ug/dL (112-346) Ferritin 141 NG/ML (8-388) Total Bilirubin 0.5 MG/DL (0.2-1.0) Gamma Glutamyl Transpeptidase 40 U/L (5-85) Aspartate Amino Transf (AST/SGOT) 62 U/L (15-37) H Alanine Aminotransferase (ALT/SGPT) 24 U/L (12-78) Alkaline Phosphatase 101 U/L (46-116) Lactate Dehydrogenase 439 U/L (81-234) H Total Creatine Kinase 51 U/L (26-308) Troponin I 0.020 ng/mL (0.000-0.056) C-Reactive Protein, Quantitative 17.6 mg/dL (0.00-0.90) H Pro-B-Type Natriuretic Peptide > 28945 pg/mL (0-125) H Total Protein 7.6 G/DL (6.4-8.2) Albumin 3.1 G/DL (3.4-5.0) L Globulin 4.5 g/dL Albumin/Globulin Ratio 0.7 (1.0-2.7) L Folate 18.0 NG/ML (8.6-58.9) Thyroid Stimulating Hormone (TSH) 0.853 uiU/mL (0.358-3.740) Cortisol AM Sample 11.3 UG/DL Current Medications Medications (Trade) Dose Ordered Sig/Sarah Route PRN Reason Start Time Stop Time Status Last Admin Dose Admin Acetaminophen (Tylenol) 650 mg Q4H PRN ORAL Temp >100.5 / mild pain 1-3 06/23/19 23:00 07/23/19 22:59 06/24/19 00:25 Albuterol Sulfate (Proventil MDI) 2 puff Q4H PRN INH Shortness of Breath 06/23/19 23:00 09/21/19 22:59 Albuterol/ Ipratropium (Combivent Respimat) 1 puff Q6HRT INH 06/24/19 01:00 07/24/19 00:59 Clonidine HCl (Catapres Tab) 0.1 mg Q4H PRN ORAL BP over 160 systolic 06/23/19 15:00 09/21/19 14:59 Docusate Sodium (Colace) 100 mg TID ORAL 06/23/19 18:00 07/23/19 17:59 06/24/19 10:05 Guaifenesin/ Dextromethorphan (Robitussin DM Syrup) 10 ml Q4H PRN ORAL For Cough 06/23/19 23:00 09/21/19 22:59 06/24/19 10:10 Heparin Sodium (Porcine) (Heparin 5000 units/ml) 5,000 units EVERY 12 HOURS SUBQ 06/23/19 15:45 08/07/19 15:44 06/24/19 00:33 Hydralazine HCl (Apresoline) 10 mg Q8H ORAL 06/24/19 08:00 09/22/19 07:59 Hydroxychloroquine Sulfate (Plaquenil) 200 mg Q12HR ORAL 06/25/19 21:00 06/29/19 09:01 Hydroxychloroquine Sulfate (Plaquenil) 400 mg Q12HR ORAL 06/24/19 21:00 06/25/19 09:01 Pantoprazole (Protonix) 40 mg BID ORAL 06/23/19 18:00 07/23/19 17:59 06/24/19 10:05 Sevelamer Carbonate (Renvela) 800 mg THREE TIMES A DAY NG 06/24/19 13:00 09/22/19 12:59 06/24/19 13:59 Shahab Arnett M.D. Jun 24, 2019 15:10
[2019-06-24] MEDS ORDERED: Azithromycin 250 MG in NS 275 ML IV ONE (16:00)
--- NOTE | 2019-06-24 16:32 | NUR ---
NURSE NOTES: DR Arnett was here and patient was given information regarding Hydroxvchloroquine. DR Arnett aware of EKG results, DR arzate okay to give medication as ordered.
[2019-06-24] MEDS ORDERED: Aztreonam Inj 1 GM in D5W 55 ML IVPB ONE (17:00)
--- NOTE | 2019-06-24 18:30 | NUR ---
NURSE NOTES: Patient resting,receiving IV antibiotic as ordered.call light within reach,respirations unlabored,patient has productive cough with clear sputum noted.Patient to receive Dialysis as ordered.Dialysis nurse here on the Unit.
--- NOTE | 2019-06-24 19:25 | NUR ---
HAND-OFF: Report given to Maria Dolores WELLER.
--- NOTE | 2019-06-24 19:45 | NUR ---
Pt awake alert oriented x4. Pt Yakut speaking Droplet and contact precautions maintained. no acute distress noted Nasal cannula @ [address] IV to left hand patent intact. Pt able to ambulate to restroom to void. AV shunt to MIKE patent intact hemodialysis today. no c/o of pain at this time. bed in lowest position call light in reach will continue to monitor for care and treatment
--- NOTE | 2019-06-24 20:37 | Cardiology Progress Note ---
Assessment/Plan Assessment/Plan The patient is seen and examined, full consult note is dictated. Objective Last 24 Hour Vital Signs Date Time Temp Pulse Resp B/P (MAP) Pulse Ox O2 Delivery O2 Flow Rate FiO2 06/24/19 16:00 132/69 06/24/19 16:00 100.9 76 20 132/69 (90) 95 06/24/19 12:00 99.7 79 20 130/79 (96) 92 06/24/19 09:00 Nasal Cannula 2.0 06/24/19 08:00 100.0 73 20 120/51 (74) 93 06/24/19 08:00 120/51 06/24/19 06:45 Nasal Cannula 2.0 06/24/19 04:00 97.9 79 18 117/50 (72) 93 06/24/19 00:55 97.9 06/24/19 00:25 146/69 06/24/19 00:00 101.1 89 22 146/69 (94) 93 06/23/19 22:20 99.3 84 18 150/81 99 Room Air Intake and Output 06/23/19 06/24/19 19:00 07:00 # Bowel Movements 1 Laboratory Tests Test 06/24/19 05:10 06/24/19 17:15 White Blood Count 3.5 K/UL (4.8-10.8) L Red Blood Count 4.77 M/UL (4.20-5.40) Hemoglobin 12.7 G/DL (12.0-16.0) Hematocrit 39.9 % (37.0-47.0) Mean Corpuscular Volume 84 FL (80-99) Mean Corpuscular Hemoglobin 26.7 PG (27.0-31.0) L Mean Corpuscular Hemoglobin Concent 31.9 G/DL (32.0-36.0) L Red Cell Distribution Width 16.9 % (11.6-14.8) H Platelet Count 144 K/UL (150-450) L Mean Platelet Volume 7.6 FL (6.5-10.1) Neutrophils (%) (Auto) 77.8 % (45.0-75.0) H Lymphocytes (%) (Auto) 14.5 % (20.0-45.0) L Monocytes (%) (Auto) 6.7 % (1.0-10.0) Eosinophils (%) (Auto) 0.3 % (0.0-3.0) Basophils (%) (Auto) 0.8 % (0.0-2.0) D-Dimer 0.94 mg/L FEU (0.00-0.49) H 1.27 mg/L FEU (0.00-0.49) H Sodium Level 138 MMOL/L (136-145) Potassium Level 4.4 MMOL/L (3.5-5.1) Chloride Level 97 MMOL/L (98-107) L Carbon Dioxide Level 25 MMOL/L (21-32) Anion Gap 16 mmol/L (5-15) H Blood Urea Nitrogen 60 mg/dL (7-18) H Creatinine 12.1 MG/DL (0.55-1.30) H Estimat Glomerular Filtration Rate 3.4 mL/min (>60) Glucose Level 100 MG/DL (74-106) Hemoglobin A1c 5.1 % (4.3-6.0) Lactic Acid Level 1.00 mmol/L (0.4-2.0) Uric Acid 7.5 MG/DL (2.6-7.2) H Calcium Level 9.4 MG/DL (8.5-10.1) Phosphorus Level 5.5 MG/DL (2.5-4.9) H Magnesium Level 2.7 MG/DL (1.8-2.4) H Iron Level 37 ug/dL (50-175) L Total Iron Binding Capacity 164 ug/dL (250-450) L Percent Iron Saturation 23 % (15-50) Unsaturated Iron Binding 127 ug/dL (112-346) Ferritin 141 NG/ML (8-388) Total Bilirubin 0.5 MG/DL (0.2-1.0) Gamma Glutamyl Transpeptidase 40 U/L (5-85) Aspartate Amino Transf (AST/SGOT) 62 U/L (15-37) H Alanine Aminotransferase (ALT/SGPT) 24 U/L (12-78) Alkaline Phosphatase 101 U/L (46-116) Lactate Dehydrogenase 439 U/L (81-234) H Total Creatine Kinase 51 U/L (26-308) Troponin I 0.020 ng/mL (0.000-0.056) C-Reactive Protein, Quantitative 17.6 mg/dL (0.00-0.90) H Pro-B-Type Natriuretic Peptide > 74922 pg/mL (0-125) H Total Protein 7.6 G/DL (6.4-8.2) Albumin 3.1 G/DL (3.4-5.0) L Globulin 4.5 g/dL Albumin/Globulin Ratio 0.7 (1.0-2.7) L Folate 18.0 NG/ML (8.6-58.9) Thyroid Stimulating Hormone (TSH) 0.853 uiU/mL (0.358-3.740) Cortisol AM Sample 11.3 UG/DL Interleukin 6 (IL-6) Pending Hepatitis B Surface Antigen Pending Microbiology Date/Time Source Procedure Growth Status 06/23/19 12:20 Nasal Nares - Final Complete 06/23/19 12:20 Nasal Nares - Final Complete Param No MD Jun 24, 2019 20:37
[2019-06-24] MEDS ORDERED: Vancomycin 1gm/D5W 275ml IVPB ONE ×2 (21:00)
--- NOTE | 2019-06-24 22:29 | Consultation ---
DATE OF CONSULTATION: 06/24/2019 INFECTIOUS DISEASE CONSULTATION CONSULTING PHYSICIAN: Shahab Arnett MD. REQUESTING PHYSICIAN: Wally Waller MD. REASON FOR CONSULTATION: Bilateral pneumonia superimposed with COVID-19 infection. Recommendation for antimicrobial treatment in a patient with penicillin allergy. HISTORY OF PRESENT ILLNESS: The patient is a 43-year-old female with past medical history of penicillin allergy, diabetes, hypertension, end-stage renal disease, on hemodialysis, who presented to the emergency room at [facility] with cough for the last 2 days, dry, nonproductive, and mild shortness of breath. She denied any fever or chills. No chest pain or shortness of breath. The patient denied any recent travel or sick contact. She is a hemodialysis patient and she is up-to-date with her dialysis courses. In the ER, the patient was found to be febrile with temperature of 99.3 and saturating 85% on room air, suggestive of hypoxemia. Her chest x-ray showed bilateral interstitial infiltration concerning for pneumonia. Lab workup showed low WBC count concerning for COVID-19 infection, so the patient was given antibiotics in the emergency room and placed on droplet isolation and Infectious Disease consultation was requested for antimicrobial treatment and further management. REVIEW OF SYSTEMS: A 14-point of system reviewed were all negative apart from the one I mentioned above in my H and P. PAST MEDICAL HISTORY: Significant for diabetes, hypertension, and end-stage renal disease, on hemodialysis. PAST SURGICAL HISTORY: None in the chart. FAMILY HISTORY: Not contributory. SOCIAL HISTORY: The patient lives with family. No recent drugs, tobacco, or alcohol abuse. ALLERGIES: She is allergic to penicillin. She gets hives and itching with Zosyn. MEDICATIONS: The patient received azithromycin in the emergency room. For the rest of her medications, please refer to MAR. LABORATORY DATA: Labs showed white count of 3.5, hemoglobin of 12.7, platelet count of 144,000. BUN of 60, creatinine of 12.1. Microbiology, influenza A and B, both negative. IMAGING: Chest x-ray showed bilateral interstitial disease with some focal airspace consolidation concerning for pneumonia. PHYSICAL EXAMINATION: VITAL SIGNS: Temperature 99.7, pulse 79, respirations 20, blood pressure 130/79, saturation 92% on nasal cannula 2 L. GENERAL: A middle-aged female, lying in bed, coughing, congested, not in acute distress. HEENT: Normocephalic and atraumatic. Pupils reactive to light equally. Moist oral mucosa. No exudate or thrush. NECK: Supple. No lymphadenopathy. CARDIOVASCULAR: Regular rate and rhythm. No murmur or gallop. LUNGS: She had crackles and rhonchi. Diminished breathing sounds at the bases. Normal breathing efforts. ABDOMEN: Soft, nontender, not distended. Normal bowel sounds. No hepatosplenomegaly or ascites. EXTREMITIES: No edema or cyanosis. ASSESSMENT AND RECOMMENDATION: 1. Bilateral pneumonia, suspect superimposed with COVID-19 infection. We will start vancomycin and aztreonam empiric coverage. Send sputum culture. Monitor chest x-ray. Keep in enhanced droplet isolation for now pending PCR test. 2. COVID-19 infection. Tested positive as per the family report, but need the result of the test to confirm. Agree on hydroxychloroquine for now to be started pending the nasopharyngeal swab PCR test, which was done at the [facility] for confirmation. Add zinc and vitamin C for 5 days total. Keep in enhanced droplet isolation. Obtain interleukin-6 level, ferritin, LDH, and D-dimer. 3. Fever, suspect due to the above. Continue Tylenol and wide-spectrum antibiotics. 4. Sepsis due to the above. Start vancomycin with Azactam pending blood culture. Repeat culture again. 5. End-stage renal disease, on hemodialysis. Continue dialysis and renally dose antibiotics as per pharmacy. Nephrology is following. 6. Diabetes type 2, controlled. Recommend tight glycemic control to keep blood glucose between 100 to 140. Thank you for the consult. ID will continue to follow. Shahab Arnett M.D. DR: Beny JOB#: [id number] CC:
--- NOTE | 2019-06-24 23:00 | NUR ---
Entered patients room after dialysis completion. Pt c/o of not feeling well by lower both hands and making a spinning motion with finger. Pt stated" blood pressure low" vitals T98.1 P 59 R 22 B/P 63/31 02 sat 94 on 2 liters of 02. Pt appear calm lying in the bed c/o of dizziness denies chest pain no acute respiratory distress, or n/v noted at this time. Dr Waller notified with with orders to give NS bolus, stat blood orders and chest xrays. orders carried out. will continue to closely monitor patients condition for treatment and care. call light in reach instructed pt to call if feel a change in condition pt stated ok
[2019-06-25] VITALS (7 sets, daily range): BP systolic 106–124; BP diastolic 58–67
[2019-06-25 01:18] LABS: ANION GAP 15 mmol/L (5-15); BLOOD UREA NITROGEN 36 mg/dL (7-18); CARBON DIOXIDE 30 MMOL/L (21-32); CHLORIDE 97 MMOL/L (98-107); CREATININE 7.9 MG/DL (0.55-1.30); POTASSIUM 3.8 MMOL/L (3.5-5.1); SODIUM 142 MMOL/L (136-145)
[2019-06-25 01:22] LABS: ALANINE AMINOTRANSFERASE 23 U/L (12-78); ALBUMIN/GLOBULIN RATIO 0.7 (1.0-2.7); ALKALINE PHOSPHATASE 98 U/L (46-116); ASPARTATE AMINO TRANSFERASE 55 U/L (15-37); BILIRUBIN,TOTAL 0.6 MG/DL (0.2-1.0)
--- NOTE | 2019-06-25 01:57 | NUR ---
Pt lying comfortable in bed no acute respiratory distress noted. After IV bolus patient B/P 123/60 P 78 R 22 Temp 100.2 cooling measures implemented and gave pt given Tylenol 650mg as ordered, will continue to monitor patient's condition
--- NOTE | 2019-06-25 02:19 | Diagnostic Imaging Report ---
EXAM: XR Chest, 1 View CLINICAL HISTORY: DIZZY TECHNIQUE: Frontal view of the chest. COMPARISON: 06/23/19 FINDINGS: Lungs: Patchy airspace disease in the left lung and right medial lower lung appear worse. Retrocardiac opacity is again seen. There is overall increased interstitial lung markings. Pleural space: Unremarkable. No pneumothorax. Heart: Cardiovascular silhouette, upper limits of normal in size accentuated by low lung volume. Mediastinum: Unremarkable. Bones/joints: Unremarkable. Vasculature: Mildly calcified thoracic aorta, unchanged. IMPRESSION: Bilateral mixed interstitial and airspace disease, slightly worse.
[2019-06-25] MEDS: Aztreonam Inj 0.25 GM in D5W 55 ML IVPB SCH ×2 (05:24→17:13)
--- NOTE | 2019-06-25 07:42 | NUR ---
Report given to Little WELLER
[2019-06-25] MEDS: HydrALAZINE 10mg Tab ORAL SCH ×4 (08:00→23:25)
--- NOTE | 2019-06-25 08:00 | NUR ---
NURSE NOTES: Patient awake and alert, eating breakfast,respirations unlabored.Dialysis catheter,AV shunt to upper right arm.No complaints at this time.Call light within reach.
[2019-06-25] MEDS: Docusate 100mg cap ORAL SCH ×3 (09:00→18:00)
[2019-06-25 09:53] LABS: BASOPHILS % (AUTO) 0.3 % (0.0-2.0); HEMATOCRIT 38.7 % (37.0-47.0); HEMOGLOBIN 12.2 G/DL (12.0-16.0); LYMPHOCYTES % (AUTO) 14.1 % (20.0-45.0); MEAN CORPUSCULAR VOLUME 83 FL (80-99); MONOCYTES % (AUTO) 3.3 % (1.0-10.0); NEUTROPHILS % (AUTO) 82.3 % (45.0-75.0); PLATELET COUNT 153 K/UL (150-450); RED BLOOD COUNT 4.64 M/UL (4.20-5.40); RED CELL DISTRIBUTION WIDTH 17.1 % (11.6-14.8); WHITE BLOOD COUNT 3.7 K/UL (4.8-10.8)
--- NOTE | 2019-06-25 10:04 | Pulmonology Progress Note ---
BryanCatherine strange CHILD AND FAMILY SERVICES WORKER 06/25/19 1004: Assessment/Plan Assessment/Plan Problem List: * COVID-19 acute respiratory illness * bilateral pulmonary infiltrates, potential also for HCAP * Mild transaminitis * ESRD on HD * E/lyte imbalance * HTN * Psychiatric disorder Plan: * Close monitoring of respiratory status and oxygen needs, currently on room air * ID follow, abx as per ID;Vanco and Aztreonam * BCX NGTD * SARS-CoV-2 by PCR 06/22 detected, on isolation (prior COVID infection was also conformed by family) * fup with CXR this am 06/24 - with bilateral mixed interstitial and airspace disease, slightly worse. * MDR with spacer prn * A/tussive prn * Monitor volumes, HD per renal * trend CRP, ferritin * Check D dimer, LDH * No plans on use of experimental hydroxychloroquine as unclear if this is truly providing a benefit, however ID started on Plaquenil for 5 days * Monitor blood pressure, on Hydralazine currently * DVT prophylaxis case discussed and evaluated by supervising physician Subjective Allergies: Coded Allergies: PENICILLINS (Verified Allergy, Unknown, 01/30/17) hives 01/30/17: ITCHING WITH ZOSYN Subjective on O2 via NC pulse ox stable, low garde fevers yesterday afternoon and at night, currently afebrile CXR worse with bilateral mixed interstitial and airspace disease, slightly worse. MELANIA-CoV-2 by PCR 06/22 + detected remains in isolation Objective Last 24 Hour Vital Signs Date Time Temp Pulse Resp B/P (MAP) Pulse Ox O2 Delivery O2 Flow Rate FiO2 06/25/19 04:00 96.4 67 22 110/67 (81) 94 06/25/19 02:32 96.7 06/25/19 01:00 100.2 78 22 123/60 (81) 94 06/25/19 00:00 65/31 06/24/19 23:00 98.1 59 22 65/31 (42) 94 06/24/19 21:00 Nasal Cannula 2.0 06/24/19 20:00 101.7 76 20 130/60 (83) 94 06/24/19 16:00 132/69 06/24/19 16:00 100.9 76 20 132/69 (90) 95 06/24/19 12:00 99.7 79 20 130/79 (96) 92 Intake and Output 06/24/19 06/25/19 19:00 07:00 Intake Total 1200 ml Output Total 1000 ml Balance 1200 ml -1000 ml Intake Oral 1200 ml Output Hemodialysis UF 1000 ml # Voids 3 # Bowel Movements 1 Objective General Appearance: no acute distress HEENT: normocephalic, atraumatic, anicteric, mucous membranes moist, PERRL Respiratory/Chest: lungs clear, no respiratory distress, no accessory muscle use Cardiovascular: normal rate, regular rhythm, no JVD Abdomen: normal bowel sounds, soft, non tender, non distended Extremities: no edema, pedal pulses normal 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: alert, responsive Musculoskeletal: normal muscle bulk Microbiology Date/Time Source Procedure Growth Status 06/23/19 11:45 Blood Blood Culture - Preliminary NO GROWTH AFTER 24 HOURS Resulted 06/23/19 11:45 Blood Blood Culture - Preliminary NO GROWTH AFTER 24 HOURS Resulted 06/23/19 12:20 Nasal Nares - Final Complete 06/23/19 12:20 Nasal Nares - Final Complete 06/23/19 12:20 Nasopharynx Coronavirus COVID-19 PCR (JESSICA) - Final Complete Laboratory Tests 06/24/19 17:15: D-Dimer 1.27H, Interleukin 6 (IL-6) [Pending], Hepatitis B Surface Antigen [ Pending] 06/25/19 00:55: Sodium Level 142, Potassium Level 3.8, Chloride Level 97L, Carbon Dioxide Level 30, Anion Gap 15, Blood Urea Nitrogen 36H, Creatinine 7.9H, Estimat Glomerular Filtration Rate 5.6, Glucose Level 117H, Calcium Level 9.0, Total Bilirubin 0.6 , Aspartate Amino Transf (AST/SGOT) 55H, Alanine Aminotransferase (ALT/SGPT) 23 , Alkaline Phosphatase 98, Troponin I 0.004, Total Protein 7.6, Albumin 3.0L, Globulin 4.6, Albumin/Globulin Ratio 0.7L 06/25/19 09:15: Sodium Level [Pending], Potassium Level [Pending], Chloride Level [Pending], Carbon Dioxide Level [Pending], Blood Urea Nitrogen [Pending], Creatinine [ Pending], Estimat Glomerular Filtration Rate [Pending], Glucose Level [Pending] , Calcium Level [Pending], Total Bilirubin [Pending], Aspartate Amino Transf ( AST/SGOT) [Pending], Alanine Aminotransferase (ALT/SGPT) [Pending], Alkaline Phosphatase [Pending], Total Protein [Pending], Albumin [Pending], Globulin [ Pending], White Blood Count [Pending], Red Blood Count [Pending], Hemoglobin [ Pending], Hematocrit [Pending], Mean Corpuscular Volume [Pending], Mean Corpuscular Hemoglobin [Pending], Mean Corpuscular Hemoglobin Concent [Pending] , Red Cell Distribution Width [Pending], Platelet Count [Pending], Mean Platelet Volume [Pending], Neutrophils (%) (Auto) [Pending], Lymphocytes (%) ( Auto) [Pending], Monocytes (%) (Auto) [Pending], Eosinophils (%) (Auto) [Pending ], Basophils (%) (Auto) [Pending], Phosphorus Level [Pending], Magnesium Level [ Pending], C-Reactive Protein, Quantitative [Pending] Current Medications Medications (Trade) Dose Ordered Sig/Sarah Route PRN Reason Start Time Stop Time Status Last Admin Dose Admin Acetaminophen (Tylenol) 650 mg Q4H PRN ORAL Temp >100.5 / mild pain 1-3 06/23/19 23:00 07/23/19 22:59 06/25/19 02:02 Albuterol Sulfate (Proventil MDI) 2 puff Q4H PRN INH Shortness of Breath 06/23/19 23:00 09/21/19 22:59 Albuterol/ Ipratropium (Combivent Respimat) 1 puff Q6HRT INH 06/24/19 01:00 07/24/19 00:59 06/25/19 06:47 Aztreonam 0.25 gm/ Dextrose 55 ml @ 110 mls/hr Q12H IVPB 06/25/19 05:00 07/02/19 04:59 06/25/19 05:24 Clonidine HCl (Catapres Tab) 0.1 mg Q4H PRN ORAL BP over 160 systolic 06/23/19 15:00 09/21/19 14:59 Docusate Sodium (Colace) 100 mg TID ORAL 06/23/19 18:00 07/23/19 17:59 06/24/19 10:05 Guaifenesin/ Dextromethorphan (Robitussin DM Syrup) 10 ml Q4H PRN ORAL For Cough 06/23/19 23:00 09/21/19 22:59 06/24/19 10:10 Heparin Sodium (Porcine) (Heparin 5000 units/ml) 5,000 units EVERY 12 HOURS SUBQ 06/23/19 15:45 08/07/19 15:44 06/24/19 21:00 Hydralazine HCl (Apresoline) 10 mg Q8H ORAL 06/24/19 08:00 09/22/19 07:59 Hydroxychloroquine Sulfate (Plaquenil) 200 mg Q12HR ORAL 06/25/19 21:00 06/29/19 09:01 Pantoprazole (Protonix) 40 mg BID ORAL 06/23/19 18:00 07/23/19 17:59 06/24/19 18:37 Sevelamer Carbonate (Renvela) 800 mg THREE TIMES A DAY NG 06/24/19 13:00 09/22/19 12:59 06/24/19 18:37 Vancomycin HCl (Vanco rx to dose) 1 ea DAILY PRN MISC Per rx protocol 06/24/19 15:15 07/24/19 15:14 Allan Morales MD 06/25/19 1656: Assessment/Plan Assessment/Plan Patient seen and examined, d/w RN and team, agree with plan as outlined about by CHILD AND FAMILY SERVICES WORKER, reflects out joint assessment. Subjective Allergies: Coded Allergies: PENICILLINS (Verified Allergy, Unknown, 01/30/17) hives 01/30/17: ITCHING WITH Catherine Barlow NP Jun 25, 2019 10:04 Allan Morales MD Jun 25, 2019 16:56
[2019-06-25] MEDS: Heparin 5000 units/ml inj SUBQ SCH ×2 (10:09→21:19)
[2019-06-25] MEDS: Renvela 800mg Pkt NG SCH ×3 (10:16→18:19)
[2019-06-25 10:21] LABS: ALANINE AMINOTRANSFERASE 23 U/L (12-78); ALBUMIN 2.7 G/DL (3.4-5.0); ALBUMIN/GLOBULIN RATIO 0.6 (1.0-2.7); ALKALINE PHOSPHATASE 86 U/L (46-116); ANION GAP 14 mmol/L (5-15); ASPARTATE AMINO TRANSFERASE 50 U/L (15-37); BILIRUBIN,TOTAL 0.5 MG/DL (0.2-1.0); BLOOD UREA NITROGEN 39 mg/dL (7-18); CALCIUM 8.2 MG/DL (8.5-10.1); CARBON DIOXIDE 29 MMOL/L (21-32); CHLORIDE 102 MMOL/L (98-107); CREATININE 9.4 MG/DL (0.55-1.30); PHOSPHORUS 5.6 MG/DL (2.5-4.9); POTASSIUM 4.6 MMOL/L (3.5-5.1); SODIUM 144 MMOL/L (136-145)
--- NOTE | 2019-06-25 10:49 | NUR ---
CHARGE NURSe NOTE: Pt will have HD tomorrow. Spoke with CHAI Kim notified.
--- NOTE | 2019-06-25 11:08 | Nephrology Progress Note ---
Assessment/Plan Problem List: (1) Pneumonia (2) COVID-19 Assessment: CRP and LDH are elevated-ferritin and d-dimer are not elevated (3) ESRD (end stage renal disease) on dialysis (4) HTN (hypertension) Assessment COVID-19 infection/pneumonia End-stage renal disease on hemodialysis 3 times a week Hypertension Diabetes mellitus Plan Management per ID Hemodialysis June 23 next dialysis June 25 Keep the blood pressure in check Renal diet Subjective ROS Limited/Unobtainable: No Constitutional: Reports: malaise, weakness, other - Continues to cough and is febrile Objective Objective Last 24 Hour Vital Signs Date Time Temp Pulse Resp B/P (MAP) Pulse Ox O2 Delivery O2 Flow Rate FiO2 06/25/19 08:00 97.7 70 20 124/59 (80) 06/25/19 08:00 124/49 06/25/19 04:00 96.4 67 22 110/67 (81) 94 06/25/19 02:32 96.7 06/25/19 01:00 100.2 78 22 123/60 (81) 94 06/25/19 00:00 65/31 06/24/19 23:00 98.1 59 22 65/31 (42) 94 06/24/19 21:00 Nasal Cannula 2.0 06/24/19 20:00 101.7 76 20 130/60 (83) 94 06/24/19 16:00 132/69 06/24/19 16:00 100.9 76 20 132/69 (90) 95 06/24/19 12:00 99.7 79 20 130/79 (96) 92 Intake and Output 06/24/19 06/25/19 19:00 07:00 Intake Total 1200 ml Output Total 1000 ml Balance 1200 ml -1000 ml Intake Oral 1200 ml Output Hemodialysis UF 1000 ml # Voids 3 # Bowel Movements 1 Current Medications Medications (Trade) Dose Ordered Sig/Sarah Route PRN Reason Start Time Stop Time Status Last Admin Dose Admin Acetaminophen (Tylenol) 650 mg Q4H PRN ORAL Temp >100.5 / mild pain 1-3 06/23/19 23:00 07/23/19 22:59 06/25/19 02:02 Albuterol Sulfate (Proventil MDI) 2 puff Q4H PRN INH Shortness of Breath 06/23/19 23:00 09/21/19 22:59 Albuterol/ Ipratropium (Combivent Respimat) 1 puff Q6HRT INH 06/24/19 01:00 07/24/19 00:59 06/25/19 06:47 Aztreonam 0.25 gm/ Dextrose 55 ml @ 110 mls/hr Q12H IVPB 06/25/19 05:00 07/02/19 04:59 06/25/19 05:24 Clonidine HCl (Catapres Tab) 0.1 mg Q4H PRN ORAL BP over 160 systolic 06/23/19 15:00 09/21/19 14:59 Docusate Sodium (Colace) 100 mg TID ORAL 06/23/19 18:00 07/23/19 17:59 06/24/19 10:05 Guaifenesin/ Dextromethorphan (Robitussin DM Syrup) 10 ml Q4H PRN ORAL For Cough 06/23/19 23:00 09/21/19 22:59 06/24/19 10:10 Heparin Sodium (Porcine) (Heparin 5000 units/ml) 5,000 units EVERY 12 HOURS SUBQ 06/23/19 15:45 08/07/19 15:44 06/25/19 10:09 Hydralazine HCl (Apresoline) 10 mg Q8H ORAL 06/24/19 08:00 09/22/19 07:59 Hydroxychloroquine Sulfate (Plaquenil) 200 mg Q12HR ORAL 06/25/19 21:00 06/29/19 09:01 Pantoprazole (Protonix) 40 mg BID ORAL 06/23/19 18:00 07/23/19 17:59 06/25/19 10:05 Sevelamer Carbonate (Renvela) 800 mg THREE TIMES A DAY NG 06/24/19 13:00 09/22/19 12:59 06/25/19 10:16 Vancomycin HCl (Vanco rx to dose) 1 ea DAILY PRN MISC Per rx protocol 06/24/19 15:15 07/24/19 15:14 Laboratory Tests 06/24/19 17:15: D-Dimer 1.27H, Interleukin 6 (IL-6) [Pending], Hepatitis B Surface Antigen [ Pending] 06/25/19 00:55: Sodium Level 142, Potassium Level 3.8, Chloride Level 97L, Carbon Dioxide Level 30, Anion Gap 15, Blood Urea Nitrogen 36H, Creatinine 7.9H, Estimat Glomerular Filtration Rate 5.6, Glucose Level 117H, Calcium Level 9.0, Total Bilirubin 0.6 , Aspartate Amino Transf (AST/SGOT) 55H, Alanine Aminotransferase (ALT/SGPT) 23 , Alkaline Phosphatase 98, Troponin I 0.004, Total Protein 7.6, Albumin 3.0L, Globulin 4.6, Albumin/Globulin Ratio 0.7L 06/25/19 09:00: Phosphorus Level [Pending], Magnesium Level [Pending] 06/25/19 09:15: Sodium Level 144, Potassium Level 4.6, Chloride Level 102, Carbon Dioxide Level 29, Anion Gap 14, Blood Urea Nitrogen 39H, Creatinine 9.4H, Estimat Glomerular Filtration Rate 4.5, Glucose Level 97, Calcium Level 8.2L, Total Bilirubin 0.5, Aspartate Amino Transf (AST/SGOT) 50H, Alanine Aminotransferase (ALT/SGPT) 23, Alkaline Phosphatase 86, Total Protein 7.1, Albumin 2.7L, Globulin 4.4, Albumin/ Globulin Ratio 0.6L, Phosphorus Level 5.6H, Magnesium Level 2.5H, White Blood Count 3.7L, Red Blood Count 4.64, Hemoglobin 12.2, Hematocrit 38.7, Mean Corpuscular Volume 83, Mean Corpuscular Hemoglobin 26.2L, Mean Corpuscular Hemoglobin Concent 31.4L, Red Cell Distribution Width 17.1H, Platelet Count 153 , Mean Platelet Volume 7.4, Neutrophils (%) (Auto) 82.3H, Lymphocytes (%) (Auto ) 14.1L, Monocytes (%) (Auto) 3.3, Eosinophils (%) (Auto) 0.0, Basophils (%) ( Auto) 0.3, C-Reactive Protein, Quantitative 41.2H Height (Feet): 4 Height (Inches): 10.00 Weight (Pounds): 108 General Appearance: no apparent distress Cardiovascular: normal rate Respiratory/Chest: decreased breath sounds Rufus Mo MD Jun 25, 2019 11:08
--- NOTE | 2019-06-25 12:12 | General Progress Note ---
Assessment/Plan Assessment/Plan: S: I am feeling the same O: appears comfortable. mild to moderate sob PHYSICAL EXAMINATION: HEAD AND NECK: Atraumatic and normocephalic. CHEST: Diffuse bronchial breathing sounds. HEART: S1, S2. Regular rate and rhythm. ABDOMEN: Soft. No organomegaly. MUSCULOSKELETAL: Positive for the right lesly with AV graft in place. NEUROLOGY: Awake, alert, oriented x3. LABORATORY DATA: Dated June 24 decreased in PLT ASSESSMENT: 1. Pneumonia secondary to COVID-19. 2. Hypoxemic respiratory failure. Continue with nasal oxygen. 3. End-stage renal disease, on hemodialysis. 4. Abnormal blood sugar. 5. Hypertension. 6. Hypothyroidism. 7. GI and DVT prophylaxis. PLAN OF CARE: DC Heparin SCD start Hydroxychloroquine D/w ID ( Dr Arnett) Episode of hypoxemic respiratory distress, workup completed Subjective Allergies: Coded Allergies: PENICILLINS (Verified Allergy, Unknown, 01/30/17) hives 01/30/17: ITCHING WITH ZOSYN Objective Last 24 Hour Vital Signs Date Time Temp Pulse Resp B/P (MAP) Pulse Ox O2 Delivery O2 Flow Rate FiO2 06/25/19 08:00 97.7 70 20 124/59 (80) 06/25/19 08:00 124/49 06/25/19 04:00 96.4 67 22 110/67 (81) 94 06/25/19 02:32 96.7 06/25/19 01:00 100.2 78 22 123/60 (81) 94 06/25/19 00:00 65/31 06/24/19 23:00 98.1 59 22 65/31 (42) 94 06/24/19 21:00 Nasal Cannula 2.0 06/24/19 20:00 101.7 76 20 130/60 (83) 94 06/24/19 16:00 132/69 06/24/19 16:00 100.9 76 20 132/69 (90) 95 Intake and Output 06/24/19 06/25/19 19:00 07:00 Intake Total 1200 ml Output Total 1000 ml Balance 1200 ml -1000 ml Intake Oral 1200 ml Output Hemodialysis UF 1000 ml # Voids 3 # Bowel Movements 1 Laboratory Tests 06/24/19 17:15: D-Dimer 1.27H, Interleukin 6 (IL-6) [Pending], Hepatitis B Surface Antigen [ Pending] 06/25/19 00:55: Sodium Level 142, Potassium Level 3.8, Chloride Level 97L, Carbon Dioxide Level 30, Anion Gap 15, Blood Urea Nitrogen 36H, Creatinine 7.9H, Estimat Glomerular Filtration Rate 5.6, Glucose Level 117H, Calcium Level 9.0, Total Bilirubin 0.6 , Aspartate Amino Transf (AST/SGOT) 55H, Alanine Aminotransferase (ALT/SGPT) 23 , Alkaline Phosphatase 98, Troponin I 0.004, Total Protein 7.6, Albumin 3.0L, Globulin 4.6, Albumin/Globulin Ratio 0.7L 06/25/19 09:00: Phosphorus Level [Pending], Magnesium Level [Pending] 06/25/19 09:15: Sodium Level 144, Potassium Level 4.6, Chloride Level 102, Carbon Dioxide Level 29, Anion Gap 14, Blood Urea Nitrogen 39H, Creatinine 9.4H, Estimat Glomerular Filtration Rate 4.5, Glucose Level 97, Calcium Level 8.2L, Total Bilirubin 0.5, Aspartate Amino Transf (AST/SGOT) 50H, Alanine Aminotransferase (ALT/SGPT) 23, Alkaline Phosphatase 86, Total Protein 7.1, Albumin 2.7L, Globulin 4.4, Albumin/ Globulin Ratio 0.6L, Phosphorus Level 5.6H, Magnesium Level 2.5H, White Blood Count 3.7L, Red Blood Count 4.64, Hemoglobin 12.2, Hematocrit 38.7, Mean Corpuscular Volume 83, Mean Corpuscular Hemoglobin 26.2L, Mean Corpuscular Hemoglobin Concent 31.4L, Red Cell Distribution Width 17.1H, Platelet Count 153 , Mean Platelet Volume 7.4, Neutrophils (%) (Auto) 82.3H, Lymphocytes (%) (Auto ) 14.1L, Monocytes (%) (Auto) 3.3, Eosinophils (%) (Auto) 0.0, Basophils (%) ( Auto) 0.3, C-Reactive Protein, Quantitative 41.2H Height (Feet): 4 Height (Inches): 10.00 Weight (Pounds): 108 Wally Waller MD Jun 25, 2019 12:11
--- NOTE | 2019-06-25 12:20 | NUR ---
*-* INSURANCE *-* ALL AVAILABLE CLINICALS HAVE BEEN FAXED TO: [facility] P: [phone] F: [phone]
[2019-06-25 12:30] LABS: PHOSPHORUS 5.7 MG/DL (2.5-4.9)
--- NOTE | 2019-06-25 16:12 | NUR ---
CASE MANAGEMENT:REVIEW SI;COVID-19+ PNA. HYPOXEMIC RESPIRATORY FAILURE. ESRD ON HD. 101.7 59 22 65/31 94% 2L NC WBC 3.7 BUN 39 CR 9.4 CA 8.2 MG 2.5 AST 50 ALB 2.7 IS;PLAQUENIL PO Q12 HRS PROVENTIL INH HHN Q4 HRS PRN COMBIVENT INH Q6 HRS PROTONIX PO BID MED SURG STATUS DCP;PATIENT IS FROM HOME
--- NOTE | 2019-06-25 18:30 | NUR ---
NURSE NOTES: Patient resting,respirations unlabored,no complaint,call light within reach.
--- NOTE | 2019-06-25 19:50 | NUR ---
NURSE NOTES: Received report from NITHIN Fitch. AAO x 4, on NC2L. AV shunt on MIKE intact. Pt ambulatory. Isolation maintained. HD scheduled tomorrow. No acute distress noted. Bed locked, lowest position, alarm on, side rails up, call light within reach.
--- NOTE | 2019-06-25 19:55 | NUR ---
HAND-OFF: Report given to Kait WELLER.
--- NOTE | 2019-06-25 21:13 | Infectious Diseases Prog Note ---
Assessment/Plan Problems: (1) PNA (pneumonia) Assessment & Plan: superimposed with CO VID 19 infection, continue vancomycin and aztreonam empirically, send sputum culture, monitor chest x-ray. Keep in enhanced droplet isolation (2) COVID-19 Assessment & Plan: tested positive with AIR BOX TESTER PCR test , continue hydroxychloroquine for now with zinc and vitamin C for five days total . keep an enhanced droplet isolation. obtain IL6 level, ferritin, LDH, and D dimer (3) Fever Assessment & Plan: suspect due to the above continue Tylenol and wide spectrum antibiotics (4) Sepsis Assessment & Plan: due to the above start vancomycin with azactam pending blood culture (5) ESRD (end stage renal disease) on dialysis Assessment & Plan: continue hemodialysis and renally dosed antibiotics as per pharmacy (6) DM II (diabetes mellitus, type II), controlled Assessment & Plan: recommend tight glycemic control to keep blood glucose between [id number] Subjective Constitutional: Reports: fever, chills HEENT: Reports: no symptoms Respiratory: Reports: shortness of breath, productive cough Breasts: Reports: no symptoms Cardiovascular: Reports: no symptoms Gastrointestinal/Abdominal: Reports: no symptoms Genitourinary: Reports: no symptoms Neurologic: Reports: weakness Psychiatric: Reports: no symptoms Skin: Reports: no symptoms Endocrine: Reports: no symptoms Hematologic: Reports: no symptoms Musculoskeletal: Reports: no symptoms Allergies: Coded Allergies: PENICILLINS (Verified Allergy, Unknown, 01/30/17) hives 01/30/17: ITCHING WITH ZOSYN Objective Vital Signs Last 24 Hour Vital Signs Date Time Temp Pulse Resp B/P (MAP) Pulse Ox O2 Delivery O2 Flow Rate FiO2 06/25/19 17:18 100.4 80 114/60 (78) 06/25/19 16:00 101.6 81 20 106/58 (74) 94 06/25/19 16:00 114/60 06/25/19 12:00 97.7 77 20 117/65 (82) 96 06/25/19 09:00 Nasal Cannula 2.0 06/25/19 08:00 97.7 70 20 124/59 (80) 06/25/19 08:00 124/49 06/25/19 04:00 96.4 67 22 110/67 (81) 94 06/25/19 02:32 96.7 06/25/19 01:00 100.2 78 22 123/60 (81) 94 06/25/19 00:00 65/31 06/24/19 23:00 98.1 59 22 65/31 (42) 94 Height (Feet): 4 Height (Inches): 10.00 Weight (Pounds): 107 General Appearance: WD/WN, no acute distress HEENT: normocephalic, atraumatic, anicteric, mucous membranes moist, PERRL Respiratory/Chest: chest wall non-tender, lungs clear, normal breath sounds, no respiratory distress, no accessory muscle use Cardiovascular: normal peripheral pulses, normal rate, regular rhythm, no gallop/murmur, no JVD Abdomen: normal bowel sounds, soft, non tender, no organomegaly, non distended , no mass, no scars Genitourinary: normal external genitalia Extremities: no cyanosis, no clubbing Skin: no rash, no lesions, no ulcers 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: alert, responsive Lymphatic: no neck adenopathy, no groin adenopathy Musculoskeletal: normal muscle bulk, no effusion Microbiology Date/Time Source Procedure Growth Status 06/23/19 11:45 Blood Blood Culture - Preliminary NO GROWTH AFTER 24 HOURS Resulted 06/23/19 11:45 Blood Blood Culture - Preliminary NO GROWTH AFTER 24 HOURS Resulted 06/23/19 12:20 Nasal Nares - Final Complete 06/23/19 12:20 Nasal Nares - Final Complete 06/23/19 12:20 Nasopharynx Coronavirus COVID-19 PCR (JESSICA) - Final Complete Laboratory Tests Test 06/25/19 00:55 06/25/19 09:00 06/25/19 09:15 Sodium Level 142 MMOL/L (136-145) 144 MMOL/L (136-145) Potassium Level 3.8 MMOL/L (3.5-5.1) 4.6 MMOL/L (3.5-5.1) Chloride Level 97 MMOL/L (98-107) L 102 MMOL/L (98-107) Carbon Dioxide Level 30 MMOL/L (21-32) 29 MMOL/L (21-32) Anion Gap 15 mmol/L (5-15) 14 mmol/L (5-15) Blood Urea Nitrogen 36 mg/dL (7-18) H 39 mg/dL (7-18) H Creatinine 7.9 MG/DL (0.55-1.30) H 9.4 MG/DL (0.55-1.30) H Estimat Glomerular Filtration Rate 5.6 mL/min (>60) 4.5 mL/min (>60) Glucose Level 117 MG/DL (74-106) H 97 MG/DL (74-106) Calcium Level 9.0 MG/DL (8.5-10.1) 8.2 MG/DL (8.5-10.1) L Total Bilirubin 0.6 MG/DL (0.2-1.0) 0.5 MG/DL (0.2-1.0) Aspartate Amino Transf (AST/SGOT) 55 U/L (15-37) H 50 U/L (15-37) H Alanine Aminotransferase (ALT/SGPT) 23 U/L (12-78) 23 U/L (12-78) Alkaline Phosphatase 98 U/L (46-116) 86 U/L (46-116) Troponin I 0.004 ng/mL (0.000-0.056) Total Protein 7.6 G/DL (6.4-8.2) 7.1 G/DL (6.4-8.2) Albumin 3.0 G/DL (3.4-5.0) L 2.7 G/DL (3.4-5.0) L Globulin 4.6 g/dL 4.4 g/dL Albumin/Globulin Ratio 0.7 (1.0-2.7) L 0.6 (1.0-2.7) L Phosphorus Level 5.7 MG/DL (2.5-4.9) H 5.6 MG/DL (2.5-4.9) H Magnesium Level 2.5 MG/DL (1.8-2.4) H 2.5 MG/DL (1.8-2.4) H White Blood Count 3.7 K/UL (4.8-10.8) L Red Blood Count 4.64 M/UL (4.20-5.40) Hemoglobin 12.2 G/DL (12.0-16.0) Hematocrit 38.7 % (37.0-47.0) Mean Corpuscular Volume 83 FL (80-99) Mean Corpuscular Hemoglobin 26.2 PG (27.0-31.0) L Mean Corpuscular Hemoglobin Concent 31.4 G/DL (32.0-36.0) L Red Cell Distribution Width 17.1 % (11.6-14.8) H Platelet Count 153 K/UL (150-450) Mean Platelet Volume 7.4 FL (6.5-10.1) Neutrophils (%) (Auto) 82.3 % (45.0-75.0) H Lymphocytes (%) (Auto) 14.1 % (20.0-45.0) L Monocytes (%) (Auto) 3.3 % (1.0-10.0) Eosinophils (%) (Auto) 0.0 % (0.0-3.0) Basophils (%) (Auto) 0.3 % (0.0-2.0) C-Reactive Protein, Quantitative 41.2 mg/dL (0.00-0.90) H Current Medications Medications (Trade) Dose Ordered Sig/Sarah Route PRN Reason Start Time Stop Time Status Last Admin Dose Admin Acetaminophen (Tylenol) 650 mg Q4H PRN ORAL Temp >100.5 / mild pain 1-3 06/23/19 23:00 07/23/19 22:59 06/25/19 02:02 Albuterol Sulfate (Proventil MDI) 2 puff Q4H PRN INH Shortness of Breath 06/23/19 23:00 09/21/19 22:59 Albuterol/ Ipratropium (Combivent Respimat) 1 puff Q6HRT INH 06/24/19 01:00 07/24/19 00:59 06/25/19 06:47 Aztreonam 0.25 gm/ Dextrose 55 ml @ 110 mls/hr Q12H IVPB 06/25/19 05:00 07/02/19 04:59 06/25/19 17:13 Clonidine HCl (Catapres Tab) 0.1 mg Q4H PRN ORAL BP over 160 systolic 06/23/19 15:00 09/21/19 14:59 Docusate Sodium (Colace) 100 mg TID ORAL 06/23/19 18:00 07/23/19 17:59 06/24/19 10:05 Guaifenesin/ Dextromethorphan (Robitussin DM Syrup) 10 ml Q4H PRN ORAL For Cough 06/23/19 23:00 09/21/19 22:59 06/24/19 10:10 Heparin Sodium (Porcine) (Heparin 5000 units/ml) 5,000 units EVERY 12 HOURS SUBQ 06/23/19 15:45 08/07/19 15:44 06/25/19 10:09 Hydralazine HCl (Apresoline) 10 mg Q8H ORAL 06/24/19 08:00 09/22/19 07:59 Hydroxychloroquine Sulfate (Plaquenil) 200 mg Q12HR ORAL 06/25/19 21:00 06/29/19 09:01 Loperamide HCl (Imodium) 2 mg TIDPRN PRN ORAL Diarrhea 06/25/19 12:45 07/25/19 12:44 06/25/19 13:31 Pantoprazole (Protonix) 40 mg BID ORAL 06/23/19 18:00 07/23/19 17:59 06/25/19 18:19 Sevelamer Carbonate (Renvela) 1,600 mg THREE TIMES A DAY NG 06/25/19 13:00 09/22/19 12:59 06/25/19 18:19 Vancomycin HCl (Vanco rx to dose) 1 ea DAILY PRN MISC Per rx protocol 06/24/19 15:15 07/24/19 15:14 Shahab Arnett M.D. Jun 25, 2019 21:13
--- NOTE | 2019-06-25 23:30 | NUR ---
NURSE NOTES: Pt has fever 102F noted. Administered med and ice packs applied. Will continue to monitor.
[2019-06-26] VITALS: BP 119/62
--- NOTE | 2019-06-26 00:15 | Consultation ---
DATE OF CONSULTATION: 06/25/2019 CARDIOLOGY CONSULTATION CONSULTING PHYSICIAN: Param No MD. REFERRING PHYSICIAN: Wally Waller MD. REASON FOR CONSULTATION: Management of heart failure. HISTORY OF PRESENT ILLNESS: The patient is a very unfortunate 43-year-old lady who presents to the hospital with two days complaint of cough which is described as dry with no association with shortness of breath either or chest pain. The patient's past medical history significant for end-stage renal disease on hemodialysis. She states that she has been compliant to her dialysis sessions. Other risk factors of coronary artery disease includes diabetes mellitus and hypertension. She denies any prior history of coronary artery disease. No cardiac arrhythmias. At the time of arrival to this hospital, blood pressure was 123/58 mmHg and heart rate was 85. An initial chest x-ray in the hospital showed bilateral diffuse infiltration which was significant for pulmonary edema and there was concern for COVID-19 infection. A 12-lead electrocardiogram was significant for sinus rhythm and nonspecific ST and T-wave abnormalities. Initial troponin I level was 0.022 within normal limits; however pro-brain natriuretic peptide was over 35,000. The patient was admitted to the hospital for further evaluation and management. Cardiology consultation was made to address possible congestive heart failure. PAST MEDICAL HISTORY: End-stage renal disease, diabetes mellitus, hypertension. PAST SURGICAL HISTORY: AV fistula creation. FAMILY HISTORY: No premature coronary artery disease in the first-degree relatives. SOCIAL HISTORY: Denies any use of tobacco, alcohol, or illicit drug use. REVIEW OF SYSTEMS: A 12-system review done essentially negative except what was mentioned in the history of present illness. MEDICATIONS: List of medication includes cefdinir 300 mg daily, Lexapro 10 mg p.o. daily, Nexium 20 mg p.o. daily, hydralazine 25 mg q. 8h, Synthroid 100 mcg daily, metoprolol 25 mg twice daily. PHYSICAL EXAMINATION: VITAL SIGNS: Blood pressure was 123/58, pulse of 85, respirations 20, temperature 99.3 degrees Fahrenheit, O2 saturation % on room air. GENERAL: The patient is a very unfortunate 43-year-old female, in no apparent respiratory distress. Alert and oriented x4. HEENT: Atraumatic and normocephalic. Anicteric. Pupils are equal, round, reactive to light and accommodation. Extraocular muscles intact. NECK: JVP less than 5 cm. No carotid bruit. Carotid upstroke is 2+ bilaterally. CVS: Normal S1, S2. Regular rate and rhythm. No murmurs, gallops, or rubs. PMI is at fourth intercostal space at the midclavicular line. LUNGS: Diminished breath sounds in both lungs with bibasilar crackles. ABDOMEN: Soft, nontender, nondistended. No hepatosplenomegaly. Positive bowel sounds. EXTREMITIES: No evidence of edema, clubbing, or cyanosis. LABORATORY FINDINGS: WBC 3.4, hemoglobin of 13.8, hematocrit 44.3%, and platelet count is 160. Sodium is 136, potassium 4.3, chloride 94, bicarb 26, BUN of 45, creatinine 9.9, glucose is 184, calcium is 9.2. Troponin I was 0.022. ProBNP was over 35,000. ASSESSMENT AND PLAN: The patient is a very unfortunate 43-year-old female, seen in Cardiology consultation. 1. Bilateral pulmonary edema with increased in brain natriuretic peptide most likely a component of end-stage renal disease and chronic heart failure with preserved ejection fraction. I will believe that chest x-ray findings is mostly in favor of COVID-19 viral infection. Unfortunately this facility does not support performing 2D echocardiography for COVID-19 patients; therefore LV systolic function cannot be assessed. I will continue with hemodialysis for preload stabilization and we will continue with hydralazine for afterload reduction. 2. End-stage renal disease. 3. COVID-19, bilateral pneumonia. 4. History of hypertension, controlled with hydralazine. 5. Diabetes mellitus. She will benefit from combination of aspirin and statins. I would like to thank, Dr. Waller, for the courtesy of this consultation. Param No M.D. DR: Kehinde JOB#: [id number] CC:
[2019-06-26 04:00] VITALS: BP 118/64
--- NOTE | 2019-06-26 04:00 | NUR ---
NURSE NOTES: Fever went down 97.5F.
[2019-06-26] MEDS: Aztreonam Inj 0.25 GM in D5W 55 ML IVPB SCH ×2 (04:35→17:51)
--- NOTE | 2019-06-26 06:05 | NUR ---
NURSE NOTES: Spoke with Benson from [facility] for HD schedule. house calls nurse practitioner nurse Luna will call back to us.
--- NOTE | 2019-06-26 07:26 | NUR ---
NURSE NOTES: Left message to Dr. Arnett regarding fever.
--- NOTE | 2019-06-26 07:27 | NUR ---
HAND-OFF: Report given to [facility] [place].
--- NOTE | 2019-06-26 07:45 | NUR ---
NURSE NOTES: Received patient A/A/O x4, able to follow commands. for HD today. on O2 via 2L NC. AV shunt on MIKE dry and intact. ambulatory. Isolation observed. No acute resp distress noted. Bed locked, lowest position, alarm on, side rails up, call light within reach. will cont to monitor.
[2019-06-26 08:00] VITALS: BP 99/58
[2019-06-26] MEDS: HydrALAZINE 10mg Tab ORAL SCH (08:00)
[2019-06-26] MEDS: Heparin 5000 units/ml inj SUBQ SCH ×2 (09:00→20:49)
--- NOTE | 2019-06-26 09:00 | NUR ---
NURSE NOTES: Jeremy, HD nurse stated that she will come for dialysis in the afternoon. will cont to monitor.
[2019-06-26] MEDS: Docusate 100mg cap ORAL SCH ×3 (09:10→17:03)
[2019-06-26] MEDS: Renvela 800mg Pkt NG SCH ×3 (09:10→17:02)
--- NOTE | 2019-06-26 09:35 | Nephrology Progress Note ---
Assessment/Plan Problem List: (1) Pneumonia (2) COVID-19 Assessment: CRP and LDH are elevated-ferritin and d-dimer are not elevated (3) ESRD (end stage renal disease) on dialysis (4) HTN (hypertension) Assessment COVID-19 infection/pneumonia End-stage renal disease on hemodialysis 3 times a week Hypertension Diabetes mellitus Plan Check labs tomorrow management per ID Hemodialysis June 23 next dialysis June 25 Keep the blood pressure in check, DC hydralazine Renal diet Subjective ROS Limited/Unobtainable: No Constitutional: Reports: malaise Objective Objective Last 24 Hour Vital Signs Date Time Temp Pulse Resp B/P (MAP) Pulse Ox O2 Delivery O2 Flow Rate FiO2 06/26/19 08:00 98.1 58 20 99/58 (72) 97 06/26/19 08:00 99/58 06/26/19 05:57 97.5 06/26/19 04:00 100.8 101 18 118/64 (82) 95 06/26/19 00:00 102.0 86 20 119/62 (81) 95 06/25/19 23:25 116/93 06/25/19 21:00 Nasal Cannula 2.0 06/25/19 20:00 99.0 79 18 121/60 (80) 95 06/25/19 17:18 100.4 80 114/60 (78) 06/25/19 16:00 101.6 81 20 106/58 (74) 94 06/25/19 16:00 114/60 06/25/19 12:00 97.7 77 20 117/65 (82) 96 Intake and Output 06/25/19 06/26/19 19:00 07:00 Intake Total 480 ml 480 ml Balance 480 ml 480 ml Intake Oral 480 ml 480 ml # Voids 3 3 Laboratory Tests 06/26/19 03:40: Random Vancomycin Level 21.9 No CBC or can panel today Height (Feet): 4 Height (Inches): 10.00 Weight (Pounds): 108 General Appearance: no apparent distress Cardiovascular: other - Variable Respiratory/Chest: decreased breath sounds, rhonchi - bilaterally Abdomen: soft Rufus Mo MD Jun 26, 2019 09:35
--- NOTE | 2019-06-26 10:09 | Pulmonology Progress Note ---
Catherine Bryan LINUX SERVER ADMINISTRATOR 06/26/19 1009: Assessment/Plan Assessment/Plan Problem List: * COVID-19 acute respiratory illness * bilateral pulmonary infiltrates, probably HCAP * Mild transaminitis * ESRD on HD * E/lyte imbalance * HTN * Psychiatric disorder Plan: * Close monitoring of respiratory status and oxygen needs, currently on room air * ID follow, abx as per ID;Vanco and Aztreonam * BCX NGTD * SARS-CoV-2 by PCR 06/22 detected, on isolation (prior COVID infection was also conformed by family) * fup with CXR this am 06/24 - with bilateral mixed interstitial and airspace disease, slightly worse. * MDR with spacer prn * O2 titarte to keep sta above 90% * A/tussive prn * Monitor volumes, HD per renal * trend CRP, ferritin; CRP 41 * Check D dimer-1.27; LDH 439 * No plans on use of experimental hydroxychloroquine as unclear if this is truly providing a benefit, however ID started on Plaquenil for 5 days * Monitor blood pressure, on Hydralazine currently * DVT prophylaxis case discussed and evaluated by supervising physician Subjective ROS Limited/Unobtainable: No Constitutional: Reports: fever, chills Gastrointestinal/Abdominal: Reports: no symptoms Psychiatric: Reports: no symptoms Skin: Reports: no symptoms Musculoskeletal: Reports: no symptoms Allergies: Coded Allergies: PENICILLINS (Verified Allergy, Unknown, 01/30/17) hives 01/30/17: ITCHING WITH ZOSYN Subjective on O2 via NC pulse ox stable, fevers at night, currently afebrile CXR 06/24 with bilateral mixed interstitial and airspace disease, slightly worse. MELANIA-CoV-2 by PCR 06/22 + detected remains in isolation Objective Last 24 Hour Vital Signs Date Time Temp Pulse Resp B/P (MAP) Pulse Ox O2 Delivery O2 Flow Rate FiO2 06/26/19 08:00 98.1 58 20 99/58 (72) 97 06/26/19 08:00 99/58 06/26/19 05:57 97.5 06/26/19 04:00 100.8 101 18 118/64 (82) 95 06/26/19 00:00 102.0 86 20 119/62 (81) 95 06/25/19 23:25 116/93 06/25/19 21:00 Nasal Cannula 2.0 06/25/19 20:00 99.0 79 18 121/60 (80) 95 06/25/19 17:18 100.4 80 114/60 (78) 06/25/19 16:00 101.6 81 20 106/58 (74) 94 06/25/19 16:00 114/60 06/25/19 12:00 97.7 77 20 117/65 (82) 96 Intake and Output 06/25/19 06/26/19 19:00 07:00 Intake Total 480 ml 480 ml Balance 480 ml 480 ml Intake Oral 480 ml 480 ml # Voids 3 3 Objective General Appearance: no acute distress HEENT: normocephalic, atraumatic, anicteric, mucous membranes moist, PERRL Respiratory/Chest: lungs clear, no respiratory distress, no accessory muscle use Cardiovascular: normal rate, regular rhythm, no JVD Abdomen: normal bowel sounds, soft, non tender, non distended Extremities: no edema, pedal pulses normal 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: alert, responsive Musculoskeletal: normal muscle bulk General Appearance: WD/WN, no acute distress HEENT: normocephalic, atraumatic, anicteric, mucous membranes moist, PERRL Abdomen: normal bowel sounds, soft, non tender, no organomegaly, non distended , no mass, no scars Genitourinary: normal external genitalia Extremities: no cyanosis, no clubbing Skin: no rash, no lesions, no ulcers 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: alert, responsive Lymphatic: no neck adenopathy, no groin adenopathy Musculoskeletal: normal muscle bulk, no effusion Microbiology Date/Time Source Procedure Growth Status 06/24/19 17:30 Blood Blood Culture - Preliminary NO GROWTH AFTER 24 HOURS Resulted 06/24/19 17:15 Blood Blood Culture - Preliminary NO GROWTH AFTER 24 HOURS Resulted 06/23/19 11:45 Blood Blood Culture - Preliminary NO GROWTH AFTER 48 HOURS Resulted 06/23/19 11:45 Blood Blood Culture - Preliminary NO GROWTH AFTER 48 HOURS Resulted 06/23/19 12:20 Nasal Nares - Final Complete 06/23/19 12:20 Nasal Nares - Final Complete 06/23/19 12:20 Nasopharynx Coronavirus COVID-19 PCR (JESSICA) - Final Complete Laboratory Tests 06/26/19 03:40: Random Vancomycin Level 21.9 Current Medications Medications (Trade) Dose Ordered Sig/Sarah Route PRN Reason Start Time Stop Time Status Last Admin Dose Admin Acetaminophen (Tylenol) 650 mg Q4H PRN ORAL Temp >100.5 / mild pain 1-3 06/23/19 23:00 07/23/19 22:59 06/26/19 05:27 Albuterol Sulfate (Proventil MDI) 2 puff Q4H PRN INH Shortness of Breath 06/23/19 23:00 09/21/19 22:59 Albuterol/ Ipratropium (Combivent Respimat) 1 puff Q6HRT INH 06/24/19 01:00 07/24/19 00:59 06/25/19 06:47 Aztreonam 0.25 gm/ Dextrose 55 ml @ 110 mls/hr Q12H IVPB 06/25/19 05:00 07/02/19 04:59 06/26/19 04:35 Clonidine HCl (Catapres Tab) 0.1 mg Q4H PRN ORAL BP over 160 systolic 06/23/19 15:00 09/21/19 14:59 Docusate Sodium (Colace) 100 mg TID ORAL 06/23/19 18:00 07/23/19 17:59 06/26/19 09:10 Guaifenesin/ Dextromethorphan (Robitussin DM Syrup) 10 ml Q4H PRN ORAL For Cough 06/23/19 23:00 09/21/19 22:59 06/24/19 10:10 Heparin Sodium (Porcine) (Heparin 5000 units/ml) 5,000 units EVERY 12 HOURS SUBQ 06/23/19 15:45 08/07/19 15:44 06/25/19 21:19 Hydroxychloroquine Sulfate (Plaquenil) 200 mg Q12HR ORAL 06/25/19 21:00 06/29/19 09:01 06/26/19 09:10 Loperamide HCl (Imodium) 2 mg TIDPRN PRN ORAL Diarrhea 06/25/19 12:45 07/25/19 12:44 06/25/19 13:31 Pantoprazole (Protonix) 40 mg BID ORAL 06/23/19 18:00 07/23/19 17:59 06/26/19 09:10 Sevelamer Carbonate (Renvela) 1,600 mg THREE TIMES A DAY NG 06/25/19 13:00 09/22/19 12:59 06/26/19 09:10 Vancomycin HCl (Vanco rx to dose) 1 ea DAILY PRN MISC Per rx protocol 06/24/19 15:15 07/24/19 15:14 Allan Morales MD 06/26/19 1953: Assessment/Plan Assessment/Plan Patient seen and examined, d/w LINUX SERVER ADMINISTRATOR. Agree with above A&P as it reflects our joint reflections. Subjective Allergies: Coded Allergies: PENICILLINS (Verified Allergy, Unknown, 01/30/17) hives 01/30/17: ITCHING WITH Catherine Barlow NP Jun 26, 2019 10:09 Allan Morales MD Jun 26, 2019 19:53
[2019-06-26 12:00] VITALS: BP 104/61
--- NOTE | 2019-06-26 14:34 | Infectious Diseases Prog Note ---
Assessment/Plan Problems: (1) PNA (pneumonia) Assessment & Plan: superimposed with CO VID 19 infection, continue vancomycin and aztreonam empirically, send sputum culture, monitor chest x-ray. Keep in enhanced droplet isolation (2) COVID-19 Assessment & Plan: tested positive with FINANCIAL SYSTEMS MANAGER PCR test , continue hydroxychloroquine for now with zinc and vitamin C for five days total . keep an enhanced droplet isolation. obtain IL6 level, ferritin, LDH, and D dimer (3) Fever Assessment & Plan: suspect due to the above continue Tylenol and wide spectrum antibiotics (4) Sepsis Assessment & Plan: due to the above start vancomycin with azactam pending blood culture (5) ESRD (end stage renal disease) on dialysis Assessment & Plan: continue hemodialysis and renally dosed antibiotics as per pharmacy (6) DM II (diabetes mellitus, type II), controlled Assessment & Plan: recommend tight glycemic control to keep blood glucose between [id number] Subjective Constitutional: Reports: fever, chills, fatigue HEENT: Reports: no symptoms Respiratory: Reports: shortness of breath, productive cough Breasts: Reports: no symptoms Cardiovascular: Reports: no symptoms Gastrointestinal/Abdominal: Reports: no symptoms Genitourinary: Reports: no symptoms Neurologic: Reports: no symptoms Psychiatric: Reports: no symptoms Skin: Reports: no symptoms Endocrine: Reports: no symptoms Hematologic: Reports: no symptoms Musculoskeletal: Reports: no symptoms Allergies: Coded Allergies: PENICILLINS (Verified Allergy, Unknown, 01/30/17) hives 01/30/17: ITCHING WITH ZOSYN Objective Vital Signs Last 24 Hour Vital Signs Date Time Temp Pulse Resp B/P (MAP) Pulse Ox O2 Delivery O2 Flow Rate FiO2 06/26/19 12:00 97.5 78 20 104/61 (75) 96 06/26/19 08:00 98.1 58 20 99/58 (72) 97 06/26/19 08:00 99/58 06/26/19 05:57 97.5 06/26/19 04:00 100.8 101 18 118/64 (82) 95 06/26/19 00:00 102.0 86 20 119/62 (81) 95 06/25/19 23:25 116/93 06/25/19 21:00 Nasal Cannula 2.0 06/25/19 20:00 99.0 79 18 121/60 (80) 95 06/25/19 17:18 100.4 80 114/60 (78) 06/25/19 16:00 101.6 81 20 106/58 (74) 94 06/25/19 16:00 114/60 Height (Feet): 4 Height (Inches): 10.00 Weight (Pounds): 108 General Appearance: WD/WN, no acute distress HEENT: normocephalic, atraumatic, anicteric, mucous membranes moist Respiratory/Chest: chest wall non-tender, lungs clear, normal breath sounds, no respiratory distress, no accessory muscle use Cardiovascular: normal peripheral pulses, normal rate, regular rhythm Abdomen: normal bowel sounds, soft, non tender, no organomegaly, non distended , no mass, no scars Extremities: no cyanosis, no clubbing Skin: no rash, no lesions, no ulcers 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: alert, responsive Lymphatic: no neck adenopathy, no groin adenopathy Microbiology Date/Time Source Procedure Growth Status 06/24/19 17:30 Blood Blood Culture - Preliminary NO GROWTH AFTER 24 HOURS Resulted 06/24/19 17:15 Blood Blood Culture - Preliminary NO GROWTH AFTER 24 HOURS Resulted Laboratory Tests Test 06/26/19 03:40 Random Vancomycin Level 21.9 ug/mL Current Medications Medications (Trade) Dose Ordered Sig/Sarah Route PRN Reason Start Time Stop Time Status Last Admin Dose Admin Acetaminophen (Tylenol) 650 mg Q4H PRN ORAL Temp >100.5 / mild pain 1-3 06/23/19 23:00 07/23/19 22:59 06/26/19 05:27 Albuterol Sulfate (Proventil MDI) 2 puff Q4H PRN INH Shortness of Breath 06/23/19 23:00 09/21/19 22:59 Albuterol/ Ipratropium (Combivent Respimat) 1 puff Q6HRT INH 06/24/19 01:00 07/24/19 00:59 06/25/19 06:47 Aztreonam 0.25 gm/ Dextrose 55 ml @ 110 mls/hr Q12H IVPB 06/25/19 05:00 07/02/19 04:59 06/26/19 04:35 Clonidine HCl (Catapres Tab) 0.1 mg Q4H PRN ORAL BP over 160 systolic 06/23/19 15:00 09/21/19 14:59 Docusate Sodium (Colace) 100 mg TID ORAL 06/23/19 18:00 07/23/19 17:59 06/26/19 09:10 Guaifenesin/ Dextromethorphan (Robitussin DM Syrup) 10 ml Q4H PRN ORAL For Cough 06/23/19 23:00 09/21/19 22:59 06/24/19 10:10 Heparin Sodium (Porcine) (Heparin 5000 units/ml) 5,000 units EVERY 12 HOURS SUBQ 06/23/19 15:45 08/07/19 15:44 06/25/19 21:19 Hydroxychloroquine Sulfate (Plaquenil) 200 mg Q12HR ORAL 06/25/19 21:00 06/29/19 09:01 06/26/19 09:10 Loperamide HCl (Imodium) 2 mg TIDPRN PRN ORAL Diarrhea 06/25/19 12:45 07/25/19 12:44 06/25/19 13:31 Pantoprazole (Protonix) 40 mg BID ORAL 06/23/19 18:00 07/23/19 17:59 06/26/19 09:10 Sevelamer Carbonate (Renvela) 1,600 mg THREE TIMES A DAY NG 06/25/19 13:00 09/22/19 12:59 06/26/19 09:10 Vancomycin HCl (Vanco rx to dose) 1 ea DAILY PRN MISC Per rx protocol 06/24/19 15:15 07/24/19 15:14 Vancomycin HCl 500 mg/Dextrose 110 ml @ 110 mls/hr ONCE IVPB 06/26/19 21:00 06/26/19 22:30 Shahab Arnett M.D. Jun 26, 2019 14:34
[2019-06-26 16:00] VITALS: BP 116/65
--- NOTE | 2019-06-26 19:01 | NUR ---
NURSE NOTES: BILL cardona nurse called and said she will be here @ 2100H tonite. will endorse to incoming nurse. will cont to monitor.
--- NOTE | 2019-06-26 19:11 | NUR ---
HAND-OFF: Report given to Mar.
[2019-06-26 20:00] VITALS: BP 129/53
--- NOTE | 2019-06-26 20:00 | NUR ---
NURSE NOTES: RECEIVED PATIENT LYING IN BED, AWAKE, ALERT/ORIENTED X4, VERBALLY RESPONSIVE, DENIES PAIN. NO SIGNS AND SYMPTOMS OF ACUTE CARDIO RESPIRATORY DISTRESS/SHORTNESS OF BREATH, NO PERIPHERAL EDEMA NOTED. ABDOMEN SOFT/NON DISTENDED/NON TENDER, BOWEL SOUNDS AUDIBLE, DENIES N/V/D. HD/AV SHUNT LEFT UPPER ARM, POSITIVE BRUITT/THRILL.IV INTACT TO LEFT HAND/GAUGE 22, NO REDNESS/SWELLING NOTED. SIDE RAILS UP X2 FOR MOBILITY, BED IN LOWEST POSITION FOR SAFETY, ENCOURAGED PATIENT TO UTILIZE CALL LIGHT FOR ASSISTANCE, VERBALIZED UNDERSTANDING. CONTINUE WITH CURRENT PLAN OF CARE. NAD.
[2019-06-26] MEDS ORDERED: Vancomycin 500mg/D5W 110ml IVPB SCH ×2 (21:00)
--- NOTE | 2019-06-26 21:13 | General Progress Note ---
Assessment/Plan Assessment/Plan: S: I am feeling the same O: appears comfortable. mild to moderate sob PHYSICAL EXAMINATION: HEAD AND NECK: Atraumatic and normocephalic. CHEST: Diffuse bronchial breathing sounds. HEART: S1, S2. Regular rate and rhythm. ABDOMEN: Soft. No organomegaly. MUSCULOSKELETAL: Positive for the right lesly with AV graft in place. NEUROLOGY: Awake, alert, oriented x3. LABORATORY DATA: Dated June 24 decreased in PLT ASSESSMENT: 1. Pneumonia secondary to COVID-19. 2. Hypoxemic respiratory failure. Continue with nasal oxygen. 3. End-stage renal disease, on hemodialysis. 4. Abnormal blood sugar. 5. Hypertension. 6. Hypothyroidism. 7. GI and DVT prophylaxis. PLAN OF CARE: DC Heparin SCD start Hydroxychloroquine Notes from ID reviewed c/w empirical abx to cover possible superimposed bacterial PNA Subjective Allergies: Coded Allergies: PENICILLINS (Verified Allergy, Unknown, 01/30/17) hives 01/30/17: ITCHING WITH ZOSYN Objective Last 24 Hour Vital Signs Date Time Temp Pulse Resp B/P (MAP) Pulse Ox O2 Delivery O2 Flow Rate FiO2 06/26/19 16:00 99.7 87 20 116/65 (82) 95 06/26/19 12:00 97.5 78 20 104/61 (75) 96 06/26/19 09:00 Nasal Cannula 2.0 06/26/19 08:00 98.1 58 20 99/58 (72) 97 06/26/19 08:00 99/58 06/26/19 05:57 97.5 06/26/19 04:00 100.8 101 18 118/64 (82) 95 06/26/19 00:00 102.0 86 20 119/62 (81) 95 06/25/19 23:25 116/93 Intake and Output 06/25/19 06/26/19 19:00 07:00 Intake Total 480 ml 480 ml Balance 480 ml 480 ml Intake Oral 480 ml 480 ml # Voids 3 3 Laboratory Tests 06/26/19 03:40: Random Vancomycin Level 21.9 Height (Feet): 4 Height (Inches): 10.00 Weight (Pounds): 108 Wally Waller MD Jun 26, 2019 21:13
--- NOTE | 2019-06-26 23:24 | Cardiology Progress Note ---
Assessment/Plan Assessment/Plan 1. Bilateral pulmonary edema with increased in brain natriuretic peptide most likely a component of end-stage renal disease and chronic heart failure with preserved ejection fraction. Cardiology department refuses performing 2D echocardiography for COVID-19 patients; hence, LV systolic function is not available. I will continue with hemodialysis for preload stabilization and we will continue with hydralazine for afterload reduction. 2. End-stage renal disease. 3. COVID-19, bilateral pneumonia. 4. History of hypertension, controlled with hydralazine. 5. Diabetes mellitus. Continue aspirin and statins. Subjective Subjective Sinus rhythm at rate of 85. Objective Last 24 Hour Vital Signs Date Time Temp Pulse Resp B/P (MAP) Pulse Ox O2 Delivery O2 Flow Rate FiO2 06/26/19 20:00 100.2 85 20 129/53 (78) 94 06/26/19 16:00 99.7 87 20 116/65 (82) 95 06/26/19 12:00 97.5 78 20 104/61 (75) 96 06/26/19 09:00 Nasal Cannula 2.0 06/26/19 08:00 98.1 58 20 99/58 (72) 97 06/26/19 08:00 99/58 06/26/19 05:57 97.5 06/26/19 04:00 100.8 101 18 118/64 (82) 95 06/26/19 00:00 102.0 86 20 119/62 (81) 95 06/25/19 23:25 116/93 Intake and Output 06/25/19 06/26/19 19:00 07:00 Intake Total 480 ml 480 ml Balance 480 ml 480 ml Intake Oral 480 ml 480 ml # Voids 3 3 Laboratory Tests Test 06/26/19 03:40 Random Vancomycin Level 21.9 ug/mL Microbiology Date/Time Source Procedure Growth Status 06/24/19 17:30 Blood Blood Culture - Preliminary NO GROWTH AFTER 24 HOURS Resulted 06/24/19 17:15 Blood Blood Culture - Preliminary NO GROWTH AFTER 24 HOURS Resulted Param No MD Jun 26, 2019 23:24
[2019-06-27] VITALS: BP 104/53
--- NOTE | 2019-06-27 00:47 | NUR ---
NURSE NOTES: HEMODIALYSIS ONGOING VIA [facility], TOLERATING WELL, NAD.
[2019-06-27 04:00] VITALS: BP 134/58
[2019-06-27] MEDS: Aztreonam Inj 0.25 GM in D5W 55 ML IVPB SCH ×2 (05:38→16:36)
[2019-06-27 06:30] LABS: HEMATOCRIT 37.6 % (37.0-47.0); MEAN CORPUSCULAR VOLUME 83 FL (80-99); PLATELET COUNT 153 K/UL (150-450); RED BLOOD COUNT 4.52 M/UL (4.20-5.40); RED CELL DISTRIBUTION WIDTH 16.5 % (11.6-14.8); WHITE BLOOD COUNT 6.6 K/UL (4.8-10.8)
[2019-06-27 07:17] LABS: ALANINE AMINOTRANSFERASE 16 U/L (12-78); ALBUMIN 2.8 G/DL (3.4-5.0); ALBUMIN/GLOBULIN RATIO 0.6 (1.0-2.7); ALKALINE PHOSPHATASE 87 U/L (46-116); ANION GAP 12 mmol/L (5-15); ASPARTATE AMINO TRANSFERASE 45 U/L (15-37); BILIRUBIN,TOTAL 0.9 MG/DL (0.2-1.0); BLOOD UREA NITROGEN 30 mg/dL (7-18); CALCIUM 9.6 MG/DL (8.5-10.1); CARBON DIOXIDE 33 MMOL/L (21-32); CHLORIDE 96 MMOL/L (98-107); CREATININE 7.9 MG/DL (0.55-1.30); FERRITIN 302 NG/ML (8-388); POTASSIUM 4.2 MMOL/L (3.5-5.1); SODIUM 141 MMOL/L (136-145)
--- NOTE | 2019-06-27 07:40 | NUR ---
NURSE NOTES: Received patient A/A/O x4, able to make needs known. On O2 via 2L NC. HD done and AV shunt on MIKE dry and intact. ambulatory. Isolation observed. No acute resp distress noted. Bed locked, lowest position, alarm on, side rails up, call light within reach. will cont to monitor.
[2019-06-27 08:00] VITALS: BP 116/62
[2019-06-27] MEDS: Renvela 800mg Pkt NG SCH ×3 (08:17→17:22)
--- NOTE | 2019-06-27 08:44 | Pulmonology Progress Note ---
Catherine Bryan TELEVISION ANNOUNCER 06/27/19 0844: Assessment/Plan Assessment/Plan Problem List: * confirmed COVID-19 acute respiratory illness * bilateral PNA, probably HCAP * Mild transaminitis * ESRD on HD * E/lyte imbalance * HTN * Psychiatric disorder Plan: * Close monitoring of respiratory status and oxygen needs * ID follow, abx as per ID;Vanco and Aztreonam, also on Plaquenil per ID recs * BCX and 06/23 NGTD * SARS-CoV-2 by PCR 06/22 detected, on isolation (prior COVID infection was also confirmed by family) * CXR 06/24 - with bilateral mixed interstitial and airspace disease, slightly worse * -fup with CXR in am, SCX if able * MDR with spacer prn * O2 titrate to keep sat above 90% * A/tussive prn * Monitor volumes, HD per renal * trend CRP, ferritin; , LDH : prior CRP 41, pending fro this am, ferritin 302 , LDH 440 * Check D dimer-1.27; * Monitor blood pressure, on Hydralazine currently * DVT prophylaxis * easily agitated, attempted to scratch nurses- will benefit from psych eval case discussed and evaluated by supervising physician Subjective ROS Limited/Unobtainable: No Constitutional: Reports: fever, chills, fatigue Gastrointestinal/Abdominal: Reports: no symptoms Psychiatric: Reports: no symptoms Skin: Reports: no symptoms Musculoskeletal: Reports: no symptoms Allergies: Coded Allergies: PENICILLINS (Verified Allergy, Unknown, 01/30/17) hives 01/30/17: ITCHING WITH ZOSYN Subjective on O2 via NC pulse ox stable, fever 100.6 this am, leukopenia resolved CXR 06/24 with bilateral mixed interstitial and airspace disease, slightly worse. MELANIA-CoV-2 by PCR 06/22 + detected remains in isolation easily agitated and noncompliant with treatment Objective Last 24 Hour Vital Signs Date Time Temp Pulse Resp B/P (MAP) Pulse Ox O2 Delivery O2 Flow Rate FiO2 06/27/19 08:00 100.6 84 19 116/62 (80) 96 06/27/19 04:00 98.8 92 20 134/58 (83) 97 06/27/19 00:00 98.6 90 18 104/53 (70) 93 06/26/19 21:00 Nasal Cannula 2.0 06/26/19 20:00 100.2 85 20 129/53 (78) 94 06/26/19 16:00 99.7 87 20 116/65 (82) 95 06/26/19 12:00 97.5 78 20 104/61 (75) 96 06/26/19 09:00 Nasal Cannula 2.0 Intake and Output 06/26/19 06/27/19 19:00 07:00 Intake Total 480 ml 295 ml Balance 480 ml 295 ml Intake Oral 480 ml 240 ml IV Total 55 ml # Voids 2 Objective General Appearance: no acute distress HEENT: normocephalic, atraumatic, anicteric, mucous membranes moist, PERRL Respiratory/Chest: lungs clear, no respiratory distress, no accessory muscle use Cardiovascular: normal rate, regular rhythm, no JVD Abdomen: normal bowel sounds, soft, non tender, non distended Extremities: no edema, pedal pulses normal, AV fistula + bruit/thrill 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: alert, responsive Musculoskeletal: normal muscle bulk Microbiology Date/Time Source Procedure Growth Status 06/24/19 17:30 Blood Blood Culture - Preliminary NO GROWTH AFTER 48 HOURS Resulted 06/24/19 17:15 Blood Blood Culture - Preliminary NO GROWTH AFTER 48 HOURS Resulted Laboratory Tests 06/27/19 05:10: White Blood Count 6.6, Red Blood Count 4.52, Hemoglobin 12.0, Hematocrit 37.6, Mean Corpuscular Volume 83, Mean Corpuscular Hemoglobin 26.5L, Mean Corpuscular Hemoglobin Concent 31.9L, Red Cell Distribution Width 16.5H, Platelet Count 153 , Mean Platelet Volume 7.5, Neutrophils (%) (Auto) , Lymphocytes (%) (Auto) , Monocytes (%) (Auto) , Eosinophils (%) (Auto) , Basophils (%) (Auto) , Neutrophils % (Manual) [Pending], Lymphocytes % (Manual) [Pending], Platelet Estimate [Pending], Platelet Morphology [Pending], Sodium Level 141, Potassium Level 4.2, Chloride Level 96L, Carbon Dioxide Level 33H, Anion Gap 12, Blood Urea Nitrogen 30H, Creatinine 7.9H, Estimat Glomerular Filtration Rate 5.6, Glucose Level 84, Calcium Level 9.6, Phosphorus Level 3.0, Ferritin 302, Total Bilirubin 0.9, Aspartate Amino Transf (AST/SGOT) 45H, Alanine Aminotransferase ( ALT/SGPT) 16, Alkaline Phosphatase 87, Lactate Dehydrogenase 440H, Troponin I 0.000, C-Reactive Protein, Quantitative [Pending], Pro-B-Type Natriuretic Peptide > 47212E, Total Protein 7.8, Albumin 2.8L, Globulin 5.0, Albumin/ Globulin Ratio 0.6L Current Medications Medications (Trade) Dose Ordered Sig/Sarah Route PRN Reason Start Time Stop Time Status Last Admin Dose Admin Acetaminophen (Tylenol) 650 mg Q4H PRN ORAL Temp >100.5 / mild pain 1-3 06/23/19 23:00 07/23/19 22:59 06/27/19 08:17 Albuterol Sulfate (Proventil MDI) 2 puff Q4H PRN INH Shortness of Breath 06/23/19 23:00 09/21/19 22:59 Albuterol/ Ipratropium (Combivent Respimat) 1 puff Q6HRT INH 06/24/19 01:00 07/24/19 00:59 06/27/19 08:18 Aztreonam 0.25 gm/ Dextrose 55 ml @ 110 mls/hr Q12H IVPB 06/25/19 05:00 07/02/19 04:59 06/27/19 05:38 Clonidine HCl (Catapres Tab) 0.1 mg Q4H PRN ORAL BP over 160 systolic 06/23/19 15:00 09/21/19 14:59 Docusate Sodium (Colace) 100 mg TID ORAL 06/23/19 18:00 07/23/19 17:59 06/26/19 09:10 Guaifenesin/ Dextromethorphan (Robitussin DM Syrup) 10 ml Q4H PRN ORAL For Cough 06/23/19 23:00 09/21/19 22:59 06/24/19 10:10 Heparin Sodium (Porcine) (Heparin 5000 units/ml) 5,000 units EVERY 12 HOURS SUBQ 06/23/19 15:45 08/07/19 15:44 06/26/19 20:49 Hydroxychloroquine Sulfate (Plaquenil) 200 mg Q12HR ORAL 06/25/19 21:00 06/29/19 09:01 06/27/19 08:18 Loperamide HCl (Imodium) 2 mg TIDPRN PRN ORAL Diarrhea 06/25/19 12:45 07/25/19 12:44 06/27/19 08:18 Pantoprazole (Protonix) 40 mg BID ORAL 06/23/19 18:00 07/23/19 17:59 06/27/19 08:17 Sevelamer Carbonate (Renvela) 1,600 mg THREE TIMES A DAY NG 06/25/19 13:00 09/22/19 12:59 06/27/19 08:17 Vancomycin HCl (Vanco rx to dose) 1 ea DAILY PRN MISC Per rx protocol 06/24/19 15:15 07/24/19 15:14 Allan Morales MD 06/27/192038: Assessment/Plan Assessment/Plan Patient seen and examined with TELEVISION ANNOUNCER. Agree with A&P as outlined above as it reflects our joint deliberations. Subjective Allergies: Coded Allergies: PENICILLINS (Verified Allergy, Unknown, 01/30/17) hives 01/30/17: ITCHING WITH Catherine Barlow TELEVISION ANNOUNCER Jun 27, 2019 08:44 Allan Morales MD Jun 27, 2019 20:39
[2019-06-27] MEDS: Docusate 100mg cap ORAL SCH ×3 (09:00→17:22)
[2019-06-27] MEDS: Heparin 5000 units/ml inj SUBQ SCH ×2 (09:00→20:42)
--- NOTE | 2019-06-27 11:25 | NUR ---
RD ASSESSMENT & RECOMMENDATIONS SEE CARE ACTIVITY FOR COMPLETE ASSESSMENT DAILY ESTIMATED NEEDS: Needs based on ESRD on HD, 49kg 30-35 kcals/kg 2155-0921 total kcals 1.2-1.8 g protein/kg 59-88 g total protein Fluid per MD, on HD NUTRITION DIAGNOSIS: Increased kcal and protein needs R/T renal dysfunction as evidenced by pt w/ ESRD on HD w/ elev BUN, Cr. CURRENT DIET: Renal PO DIET RECOMMENDATIONS: Renal diet ADDITIONAL RECOMMENDATIONS: 1) High protein snacks BID + nepro qdaily 2) Maintain calibrated bed scale wts daily 3) Bowel regimen, monitor for bm . .
[2019-06-27 12:00] VITALS: BP 132/68
--- NOTE | 2019-06-27 13:39 | Nephrology Progress Note ---
Assessment/Plan Problem List: (1) Pneumonia (2) COVID-19 Assessment: CRP and LDH are elevated-ferritin and d-dimer are not elevated (3) ESRD (end stage renal disease) on dialysis (4) HTN (hypertension) Assessment COVID-19 infection/pneumonia End-stage renal disease on hemodialysis 3 times a week Hypertension Diabetes mellitus Plan Check labs tomorrow management per ID Hemodialysis done June 25 will do again June 27 Keep the blood pressure in check, DC hydralazine Renal diet Subjective ROS Limited/Unobtainable: No Constitutional: Reports: malaise Objective Objective Last 24 Hour Vital Signs Date Time Temp Pulse Resp B/P (MAP) Pulse Ox O2 Delivery O2 Flow Rate FiO2 06/27/19 12:00 98.5 78 18 132/68 (89) 95 06/27/19 09:00 Nasal Cannula 2.0 06/27/19 08:47 98.6 06/27/19 08:00 100.6 84 19 116/62 (80) 96 06/27/19 04:00 98.8 92 20 134/58 (83) 97 06/27/19 00:00 98.6 90 18 104/53 (70) 93 06/26/19 21:00 Nasal Cannula 2.0 06/26/19 20:00 100.2 85 20 129/53 (78) 94 06/26/19 16:00 99.7 87 20 116/65 (82) 95 Intake and Output 06/26/19 06/27/19 19:00 07:00 Intake Total 720 ml 295 ml Output Total 1000 ml Balance 720 ml -705 ml Intake Oral 720 ml 240 ml IV Total 55 ml Output Hemodialysis UF 1000 ml # Voids 2 Laboratory Tests 06/27/19 05:10: White Blood Count 6.6, Red Blood Count 4.52, Hemoglobin 12.0, Hematocrit 37.6, Mean Corpuscular Volume 83, Mean Corpuscular Hemoglobin 26.5L, Mean Corpuscular Hemoglobin Concent 31.9L, Red Cell Distribution Width 16.5H, Platelet Count 153 , Mean Platelet Volume 7.5, Neutrophils (%) (Auto) , Lymphocytes (%) (Auto) , Monocytes (%) (Auto) , Eosinophils (%) (Auto) , Basophils (%) (Auto) , Differential Total Cells Counted 100, Neutrophils % (Manual) 88H, Lymphocytes % (Manual) 7L, Monocytes % (Manual) 5, Eosinophils % (Manual) 0, Basophils % ( Manual) 0, Band Neutrophils 0, Platelet Estimate Adequate, Platelet Morphology Normal, Red Blood Cell Morphology Normal, Sodium Level 141, Potassium Level 4.2 , Chloride Level 96L, Carbon Dioxide Level 33H, Anion Gap 12, Blood Urea Nitrogen 30H, Creatinine 7.9H, Estimat Glomerular Filtration Rate 5.6, Glucose Level 84, Calcium Level 9.6, Phosphorus Level 3.0, Ferritin 302, Total Bilirubin 0.9, Aspartate Amino Transf (AST/SGOT) 45H, Alanine Aminotransferase ( ALT/SGPT) 16, Alkaline Phosphatase 87, Lactate Dehydrogenase 440H, Troponin I 0.000, C-Reactive Protein, Quantitative 48.3H, Pro-B-Type Natriuretic Peptide > 65324C, Total Protein 7.8, Albumin 2.8L, Globulin 5.0, Albumin/Globulin Ratio 0.6L Height (Feet): 4 Height (Inches): 10.00 Weight (Pounds): 108 General Appearance: no apparent distress, other - Still febrile Cardiovascular: tachycardia Respiratory/Chest: decreased breath sounds Abdomen: soft Rufus Mo MD Jun 27, 2019 13:38
[2019-06-27 16:00] VITALS: BP 92/49
--- NOTE | 2019-06-27 16:09 | NUR ---
NURSE NOTES: called [facility] SPOKE WITH TAMIE FOR TOMORROW'S HD. WILL CONT TO MONITOR.
--- NOTE | 2019-06-27 19:01 | NUR ---
HAND-OFF: Report given to Mar.
--- NOTE | 2019-06-27 19:33 | NUR ---
NURSE NOTES: RECEIVED PATIENT LYING IN BED, AWAKE, ALERT/ORIENTED X4, VERBALLY RESPONSIVE, ROMANSH SPEAKING, ABLE TO VERBALIZE SIMPLE NEEDS IN NEPALI, DENIES PAIN. NO SIGNS AND SYMPTOMS OF ACUTE CARDIO RESPIRATORY DISTRESS/SHORTNESS OF BREATH, DENIES CHEST PAIN. HD PATIENT, AV SHUNT INTACT TO RIGHT UPPER ARM, +BRUITT/THRILL, NO SIGNS OF BLEEDING, HD SCHEDULED 06/28/19, [facility] MADE AWARE. ABDOMEN SOFT/NON DISTENDED, REPORTED EPISODE OF DIARRHEA, MEDICATED ON AM SHIFT. SIDE RAILS UP X2 FOR MOBILITY, BED IN LOWEST POSITION FOR SAFETY, CALL LIGHT WITHIN REACH AT ALL TIMES. CONTINUE WITH CURRENT PLAN OF CARE. NAD.
[2019-06-27 20:00] VITALS: BP 100/50
[2019-06-27] MEDS: Guaifenesin/DM 10ml syrup ORAL PRN (20:42)
--- NOTE | 2019-06-27 20:51 | Infectious Diseases Prog Note ---
Assessment/Plan Problems: (1) PNA (pneumonia) Assessment & Plan: superimposed with CO VID 19 infection, continue vancomycin and aztreonam empirically, monitor chest x-ray. 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 keep an enhanced droplet isolation. MONITOR ferritin, LDH, and D dimer (3) Fever Assessment & Plan: suspect due to the above , IMPROVING , continue Tylenol and wide spectrum antibiotics (4) Sepsis Assessment & Plan: due to the above start vancomycin with azactam pending blood culture (5) ESRD (end stage renal disease) on dialysis Assessment & Plan: continue hemodialysis and renally dosed antibiotics as per pharmacy (6) DM II (diabetes mellitus, type II), controlled Assessment & Plan: recommend tight glycemic control to keep blood glucose between [id number] Subjective Constitutional: Reports: fever HEENT: Reports: no symptoms Respiratory: Reports: shortness of breath, productive cough Breasts: Reports: no symptoms Cardiovascular: Reports: no symptoms Gastrointestinal/Abdominal: Reports: no symptoms Genitourinary: Reports: no symptoms Neurologic: Reports: no symptoms Psychiatric: Reports: no symptoms Skin: Reports: no symptoms Endocrine: Reports: no symptoms Hematologic: Reports: no symptoms Musculoskeletal: Reports: no symptoms Allergies: Coded Allergies: PENICILLINS (Verified Allergy, Unknown, 01/30/17) hives 01/30/17: ITCHING WITH ZOSYN Objective Vital Signs Last 24 Hour Vital Signs Date Time Temp Pulse Resp B/P (MAP) Pulse Ox O2 Delivery O2 Flow Rate FiO2 06/27/19 16:00 97.7 72 19 92/49 (63) 94 06/27/19 12:00 98.5 78 18 132/68 (89) 95 06/27/19 09:00 Nasal Cannula 2.0 06/27/19 08:47 98.6 06/27/19 08:00 100.6 84 19 116/62 (80) 96 06/27/19 04:00 98.8 92 20 134/58 (83) 97 06/27/19 00:00 98.6 90 18 104/53 (70) 93 06/26/19 21:00 Nasal Cannula 2.0 Height (Feet): 4 Height (Inches): 10.00 Weight (Pounds): 108 General Appearance: WD/WN, no acute distress HEENT: normocephalic, atraumatic, anicteric, mucous membranes moist, PERRL Respiratory/Chest: chest wall non-tender, no respiratory distress, no accessory muscle use, decreased breath sounds, crackles/rales Cardiovascular: normal peripheral pulses, normal rate, regular rhythm, no gallop/murmur, no JVD Abdomen: normal bowel sounds, soft, non tender, no organomegaly, non distended , no mass, no scars Genitourinary: normal external genitalia Extremities: no cyanosis, no clubbing Skin: no rash, no lesions, no ulcers 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: pricing intern II-XII grossly normal, alert, oriented x 3, responsive Lymphatic: no neck adenopathy, no groin adenopathy Musculoskeletal: normal muscle bulk, no effusion Laboratory Tests Test 06/27/19 05:10 White Blood Count 6.6 K/UL (4.8-10.8) Red Blood Count 4.52 M/UL (4.20-5.40) Hemoglobin 12.0 G/DL (12.0-16.0) Hematocrit 37.6 % (37.0-47.0) Mean Corpuscular Volume 83 FL (80-99) Mean Corpuscular Hemoglobin 26.5 PG (27.0-31.0) L Mean Corpuscular Hemoglobin Concent 31.9 G/DL (32.0-36.0) L Red Cell Distribution Width 16.5 % (11.6-14.8) H Platelet Count 153 K/UL (150-450) Mean Platelet Volume 7.5 FL (6.5-10.1) Neutrophils (%) (Auto) % (45.0-75.0) Lymphocytes (%) (Auto) % (20.0-45.0) Monocytes (%) (Auto) % (1.0-10.0) Eosinophils (%) (Auto) % (0.0-3.0) Basophils (%) (Auto) % (0.0-2.0) Differential Total Cells Counted 100 Neutrophils % (Manual) 88 % (45-75) H Lymphocytes % (Manual) 7 % (20-45) L Monocytes % (Manual) 5 % (1-10) Eosinophils % (Manual) 0 % (0-3) Basophils % (Manual) 0 % (0-2) Band Neutrophils 0 % (0-8) Platelet Estimate Adequate Platelet Morphology Normal Red Blood Cell Morphology Normal Sodium Level 141 MMOL/L (136-145) Potassium Level 4.2 MMOL/L (3.5-5.1) Chloride Level 96 MMOL/L (98-107) L Carbon Dioxide Level 33 MMOL/L (21-32) H Anion Gap 12 mmol/L (5-15) Blood Urea Nitrogen 30 mg/dL (7-18) H Creatinine 7.9 MG/DL (0.55-1.30) H Estimat Glomerular Filtration Rate 5.6 mL/min (>60) Glucose Level 84 MG/DL (74-106) Calcium Level 9.6 MG/DL (8.5-10.1) Phosphorus Level 3.0 MG/DL (2.5-4.9) Ferritin 302 NG/ML (8-388) Total Bilirubin 0.9 MG/DL (0.2-1.0) Aspartate Amino Transf (AST/SGOT) 45 U/L (15-37) H Alanine Aminotransferase (ALT/SGPT) 16 U/L (12-78) Alkaline Phosphatase 87 U/L (46-116) Lactate Dehydrogenase 440 U/L (81-234) H Troponin I 0.000 ng/mL (0.000-0.056) C-Reactive Protein, Quantitative 48.3 mg/dL (0.00-0.90) H Pro-B-Type Natriuretic Peptide > 48522 pg/mL (0-125) H Total Protein 7.8 G/DL (6.4-8.2) Albumin 2.8 G/DL (3.4-5.0) L Globulin 5.0 g/dL Albumin/Globulin Ratio 0.6 (1.0-2.7) L Current Medications Medications (Trade) Dose Ordered Sig/Sarah Route PRN Reason Start Time Stop Time Status Last Admin Dose Admin Acetaminophen (Tylenol) 650 mg Q4H PRN ORAL Temp >100.5 / mild pain 1-3 06/23/19 23:00 07/23/19 22:59 06/27/19 08:17 Albuterol Sulfate (Proventil MDI) 2 puff Q4H PRN INH Shortness of Breath 06/23/19 23:00 09/21/19 22:59 Albuterol/ Ipratropium (Combivent Respimat) 1 puff Q6HRT INH 06/24/19 01:00 07/24/19 00:59 06/27/19 17:23 Aztreonam 0.25 gm/ Dextrose 55 ml @ 110 mls/hr Q12H IVPB 06/25/19 05:00 07/02/19 04:59 06/27/19 16:36 Clonidine HCl (Catapres Tab) 0.1 mg Q4H PRN ORAL BP over 160 systolic 06/23/19 15:00 09/21/19 14:59 Docusate Sodium (Colace) 100 mg TID ORAL 06/23/19 18:00 07/23/19 17:59 06/26/19 09:10 Guaifenesin/ Dextromethorphan (Robitussin DM Syrup) 10 ml Q4H PRN ORAL For Cough 06/23/19 23:00 09/21/19 22:59 06/27/19 20:42 Heparin Sodium (Porcine) (Heparin 5000 units/ml) 5,000 units EVERY 12 HOURS SUBQ 06/23/19 15:45 08/07/19 15:44 06/27/19 20:42 Hydroxychloroquine Sulfate (Plaquenil) 200 mg Q12HR ORAL 06/25/19 21:00 06/29/19 09:01 06/27/19 20:41 Loperamide HCl (Imodium) 2 mg TIDPRN PRN ORAL Diarrhea 06/25/19 12:45 07/25/19 12:44 06/27/19 08:18 Pantoprazole (Protonix) 40 mg BID ORAL 06/23/19 18:00 07/23/19 17:59 06/27/19 17:22 Sevelamer Carbonate (Renvela) 1,600 mg THREE TIMES A DAY NG 06/25/19 13:00 09/22/19 12:59 06/27/19 17:22 Vancomycin HCl (Vanco rx to dose) 1 ea DAILY PRN MISC Per rx protocol 06/24/19 15:15 07/24/19 15:14 Shahab Arnett M.D. Jun 27, 2019 20:51
--- NOTE | 2019-06-27 23:51 | Cardiology Progress Note ---
Assessment/Plan Assessment/Plan 1. Bilateral pulmonary edema with increased in brain natriuretic peptide most likely a component of end-stage renal disease and chronic heart failure with preserved ejection fraction. Cardiology department refuses performing 2D echocardiography for COVID-19 patients; hence, LV systolic function is not available, hemodialysis for preload stabilization and hydralazine for afterload reduction. 2. End-stage renal disease. 3. COVID-19, bilateral pneumonia. 4. History of hypertension, controlled with hydralazine. 5. Diabetes mellitus. Continue aspirin and statins. Subjective Subjective Sinus rhythm at rate of 72. Objective Last 24 Hour Vital Signs Date Time Temp Pulse Resp B/P (MAP) Pulse Ox O2 Delivery O2 Flow Rate FiO2 06/27/19 21:00 Nasal Cannula 2.0 06/27/19 20:00 98.1 72 16 100/50 (67) 06/27/19 16:00 97.7 72 19 92/49 (63) 94 06/27/19 12:00 98.5 78 18 132/68 (89) 95 06/27/19 09:00 Nasal Cannula 2.0 06/27/19 08:47 98.6 06/27/19 08:00 100.6 84 19 116/62 (80) 96 06/27/19 04:00 98.8 92 20 134/58 (83) 97 06/27/19 00:00 98.6 90 18 104/53 (70) 93 Intake and Output 06/26/19 06/27/19 19:00 07:00 Intake Total 720 ml 295 ml Output Total 1000 ml Balance 720 ml -705 ml Intake Oral 720 ml 240 ml IV Total 55 ml Output Hemodialysis UF 1000 ml # Voids 2 Laboratory Tests Test 06/27/19 05:10 White Blood Count 6.6 K/UL (4.8-10.8) Red Blood Count 4.52 M/UL (4.20-5.40) Hemoglobin 12.0 G/DL (12.0-16.0) Hematocrit 37.6 % (37.0-47.0) Mean Corpuscular Volume 83 FL (80-99) Mean Corpuscular Hemoglobin 26.5 PG (27.0-31.0) L Mean Corpuscular Hemoglobin Concent 31.9 G/DL (32.0-36.0) L Red Cell Distribution Width 16.5 % (11.6-14.8) H Platelet Count 153 K/UL (150-450) Mean Platelet Volume 7.5 FL (6.5-10.1) Neutrophils (%) (Auto) % (45.0-75.0) Lymphocytes (%) (Auto) % (20.0-45.0) Monocytes (%) (Auto) % (1.0-10.0) Eosinophils (%) (Auto) % (0.0-3.0) Basophils (%) (Auto) % (0.0-2.0) Differential Total Cells Counted 100 Neutrophils % (Manual) 88 % (45-75) H Lymphocytes % (Manual) 7 % (20-45) L Monocytes % (Manual) 5 % (1-10) Eosinophils % (Manual) 0 % (0-3) Basophils % (Manual) 0 % (0-2) Band Neutrophils 0 % (0-8) Platelet Estimate Adequate Platelet Morphology Normal Red Blood Cell Morphology Normal Sodium Level 141 MMOL/L (136-145) Potassium Level 4.2 MMOL/L (3.5-5.1) Chloride Level 96 MMOL/L (98-107) L Carbon Dioxide Level 33 MMOL/L (21-32) H Anion Gap 12 mmol/L (5-15) Blood Urea Nitrogen 30 mg/dL (7-18) H Creatinine 7.9 MG/DL (0.55-1.30) H Estimat Glomerular Filtration Rate 5.6 mL/min (>60) Glucose Level 84 MG/DL (74-106) Calcium Level 9.6 MG/DL (8.5-10.1) Phosphorus Level 3.0 MG/DL (2.5-4.9) Ferritin 302 NG/ML (8-388) Total Bilirubin 0.9 MG/DL (0.2-1.0) Aspartate Amino Transf (AST/SGOT) 45 U/L (15-37) H Alanine Aminotransferase (ALT/SGPT) 16 U/L (12-78) Alkaline Phosphatase 87 U/L (46-116) Lactate Dehydrogenase 440 U/L (81-234) H Troponin I 0.000 ng/mL (0.000-0.056) C-Reactive Protein, Quantitative 48.3 mg/dL (0.00-0.90) H Pro-B-Type Natriuretic Peptide > 16346 pg/mL (0-125) H Total Protein 7.8 G/DL (6.4-8.2) Albumin 2.8 G/DL (3.4-5.0) L Globulin 5.0 g/dL Albumin/Globulin Ratio 0.6 (1.0-2.7) L Objective HEENT: Atraumatic and normocephalic. Anicteric. Pupils are equal, round, reactive to light and accommodation. Extraocular muscles intact. NECK: JVP less than 5 cm. No carotid bruit. Carotid upstroke is 2+ bilaterally. CVS: Normal S1, S2. Regular rate and rhythm. No murmurs, gallops, or rubs. PMI is at fourth intercostal space at the midclavicular line. LUNGS: Diminished breath sounds in both lungs with bibasilar crackles. ABDOMEN: Soft, nontender, nondistended. No hepatosplenomegaly. Positive bowel sounds. EXTREMITIES: No evidence of edema, clubbing, or cyanosis. Param No MD Jun 27, 2019 23:51
[2019-06-28] VITALS: BP 102/49
[2019-06-28 04:00] VITALS: BP 119/74
[2019-06-28] MEDS: Aztreonam Inj 0.25 GM in D5W 55 ML IVPB SCH ×2 (05:16→16:04)
--- NOTE | 2019-06-28 06:49 | Hematology/Onc Progress Note ---
Assessment/Plan Assessment/Plan # Leukopenia on admission - with likely infection, bilateral pulmonary edema with increased in brain natriuretic peptide most likely a component of end- stage renal disease and chronic heart failure with preserved ejection fraction. --> hepatitis and hiv neg --> imaging reviewed, abd us from 3 years ago negative --> smear is noted --> meds have been reviewed --> neupogen sq as needed prn # Anemia likely due to End-stage renal disease --> very mild currently, hgb 12 # COVID-19, bilateral pneumonia. --> as per Id, Dr. Arnett on case --> iso, and droplet iso # History of hypertension, controlled with hydralazine --> per cards # Sepsis --> start vancomycin with azactam pending blood culture # ESRD (end stage renal disease) on dialysis --> continue hemodialysis and renally dosed antibiotics as per pharmacy # DM II (diabetes mellitus, type II), controlled --> recommend tight glycemic control to keep blood glucose between [id number] # Dvt ppx heparin sq Appreciate consultation and effie rn Subjective Constitutional: Denies: no symptoms, chills, fever, malaise, weakness, other HEENT: Denies: no symptoms, eye pain, blurred vision, tearing, double vision, ear pain, ear discharge, nose pain, nose congestion, throat pain, throat swelling, mouth pain, mouth swelling, other Cardiovascular: Denies: no symptoms, chest pain, edema, irregular heart rate, lightheadedness, palpitations, syncope, other Respiratory: Denies: no symptoms, cough, shortness of breath, SOB with excertion, SOB at rest, sputum, wheezing, other Gastrointestinal/Abdominal: Denies: no symptoms, abdomen distended, abdominal pain, black stools, tarry stools, blood in stool, constipated, diarrhea, difficulty swallowing, nausea, poor appetite, poor fluid intake, rectal bleeding , vomiting, other Genitourinary: Denies: no symptoms, burning, discharge, frequency, flank pain, hematuria, incontinence, pain, urgency, other 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: Denies: no symptoms, anxiety, depressed, emotional problems, headache, numbness, paresthesia, pre-existing deficit, seizure, tingling, tremors, weakness, other Endocrine: Denies: no symptoms, excessive sweating, flushing, intolerance to cold, intolerance to heat, increased hunger, increased thirst, increased urine, unexplained weight gain, unexplained weight loss, other Allergies: Coded Allergies: PENICILLINS (Verified Allergy, Unknown, 01/30/17) hives 01/30/17: ITCHING WITH ZOSYN Subjective 06/27 wolof speaking, to get hd, labs yesterday looked better, cbc has been ordered Objective Objective Current Medications Medications (Trade) Dose Ordered Sig/Sarah Route PRN Reason Start Time Stop Time Status Last Admin Dose Admin Acetaminophen (Tylenol) 650 mg Q4H PRN ORAL Temp >100.5 / mild pain 1-3 06/23/19 23:00 07/23/19 22:59 06/27/19 08:17 Albuterol Sulfate (Proventil MDI) 2 puff Q4H PRN INH Shortness of Breath 06/23/19 23:00 09/21/19 22:59 Albuterol/ Ipratropium (Combivent Respimat) 1 puff Q6HRT INH 06/24/19 01:00 07/24/19 00:59 06/28/19 01:00 Aztreonam 0.25 gm/ Dextrose 55 ml @ 110 mls/hr Q12H IVPB 06/25/19 05:00 07/02/19 04:59 06/28/19 05:16 Clonidine HCl (Catapres Tab) 0.1 mg Q4H PRN ORAL BP over 160 systolic 06/23/19 15:00 09/21/19 14:59 Docusate Sodium (Colace) 100 mg TID ORAL 06/23/19 18:00 07/23/19 17:59 06/26/19 09:10 Guaifenesin/ Dextromethorphan (Robitussin DM Syrup) 10 ml Q4H PRN ORAL For Cough 06/23/19 23:00 09/21/19 22:59 06/27/19 20:42 Heparin Sodium (Porcine) (Heparin 5000 units/ml) 5,000 units EVERY 12 HOURS SUBQ 06/23/19 15:45 08/07/19 15:44 06/27/19 20:42 Hydroxychloroquine Sulfate (Plaquenil) 200 mg Q12HR ORAL 06/25/19 21:00 06/29/19 09:01 06/27/19 20:41 Loperamide HCl (Imodium) 2 mg TIDPRN PRN ORAL Diarrhea 06/25/19 12:45 07/25/19 12:44 06/28/19 00:04 Pantoprazole (Protonix) 40 mg BID ORAL 06/23/19 18:00 07/23/19 17:59 06/27/19 17:22 Sevelamer Carbonate (Renvela) 1,600 mg THREE TIMES A DAY NG 06/25/19 13:00 09/22/19 12:59 06/27/19 17:22 Vancomycin HCl (Vanco rx to dose) 1 ea DAILY PRN MISC Per rx protocol 06/24/19 15:15 07/24/19 15:14 Last 24 Hour Vital Signs Date Time Temp Pulse Resp B/P (MAP) Pulse Ox O2 Delivery O2 Flow Rate FiO2 06/28/19 00:00 98.2 76 18 102/49 (66) 100 06/27/19 21:00 Nasal Cannula 2.0 06/27/19 20:00 98.1 72 16 100/50 (67) 100 06/27/19 16:00 97.7 72 19 92/49 (63) 94 06/27/19 12:00 98.5 78 18 132/68 (89) 95 06/27/19 09:00 Nasal Cannula 2.0 06/27/19 08:47 98.6 06/27/19 08:00 100.6 84 19 116/62 (80) 96 06/27/19 04:00 98.8 92 20 134/58 (83) 97 06/27/19 00:00 98.6 90 18 104/53 (70) 93 06/26/19 21:00 Nasal Cannula 2.0 06/26/19 20:00 100.2 85 20 129/53 (78) 94 06/26/19 16:00 99.7 87 20 116/65 (82) 95 06/26/19 12:00 97.5 78 20 104/61 (75) 96 06/26/19 09:00 Nasal Cannula 2.0 06/26/19 08:00 98.1 58 20 99/58 (72) 97 06/26/19 08:00 99/58 Intake and Output 06/27/19 06/28/19 19:00 07:00 Intake Total 710 ml 180 ml Balance 710 ml 180 ml Intake Oral 180 ml IV Total 110 ml Other 600 ml # Voids 2 # Bowel Movements 1 Labs Test 06/25/19 09:00 06/25/19 09:15 06/26/19 03:40 06/27/19 05:10 Phosphorus Level 5.7 MG/DL (2.5-4.9) 5.6 MG/DL (2.5-4.9) 3.0 MG/DL (2.5-4.9) Magnesium Level 2.5 MG/DL (1.8-2.4) 2.5 MG/DL (1.8-2.4) White Blood Count 3.7 K/UL (4.8-10.8) 6.6 K/UL (4.8-10.8) Red Blood Count 4.64 M/UL (4.20-5.40) 4.52 M/UL (4.20-5.40) Hemoglobin 12.2 G/DL (12.0-16.0) 12.0 G/DL (12.0-16.0) Hematocrit 38.7 % (37.0-47.0) 37.6 % (37.0-47.0) Mean Corpuscular Volume 83 FL (80-99) 83 FL (80-99) Mean Corpuscular Hemoglobin 26.2 PG (27.0-31.0) 26.5 PG (27.0-31.0) Mean Corpuscular Hemoglobin Concent 31.4 G/DL (32.0-36.0) 31.9 G/DL (32.0-36.0) Red Cell Distribution Width 17.1 % (11.6-14.8) 16.5 % (11.6-14.8) Platelet Count 153 K/UL (150-450) 153 K/UL (150-450) Mean Platelet Volume 7.4 FL (6.5-10.1) 7.5 FL (6.5-10.1) Neutrophils (%) (Auto) 82.3 % (45.0-75.0) % (45.0-75.0) Lymphocytes (%) (Auto) 14.1 % (20.0-45.0) % (20.0-45.0) Monocytes (%) (Auto) 3.3 % (1.0-10.0) % (1.0-10.0) Eosinophils (%) (Auto) 0.0 % (0.0-3.0) % (0.0-3.0) Basophils (%) (Auto) 0.3 % (0.0-2.0) % (0.0-2.0) Sodium Level 144 MMOL/L (136-145) 141 MMOL/L (136-145) Potassium Level 4.6 MMOL/L (3.5-5.1) 4.2 MMOL/L (3.5-5.1) Chloride Level 102 MMOL/L (98-107) 96 MMOL/L (98-107) Carbon Dioxide Level 29 MMOL/L (21-32) 33 MMOL/L (21-32) Anion Gap 14 mmol/L (5-15) 12 mmol/L (5-15) Blood Urea Nitrogen 39 mg/dL (7-18) 30 mg/dL (7-18) Creatinine 9.4 MG/DL (0.55-1.30) 7.9 MG/DL (0.55-1.30) Estimat Glomerular Filtration Rate 4.5 mL/min (>60) 5.6 mL/min (>60) Glucose Level 97 MG/DL (74-106) 84 MG/DL (74-106) Calcium Level 8.2 MG/DL (8.5-10.1) 9.6 MG/DL (8.5-10.1) Total Bilirubin 0.5 MG/DL (0.2-1.0) 0.9 MG/DL (0.2-1.0) Aspartate Amino Transf (AST/SGOT) 50 U/L (15-37) 45 U/L (15-37) Alanine Aminotransferase (ALT/SGPT) 23 U/L (12-78) 16 U/L (12-78) Alkaline Phosphatase 86 U/L (46-116) 87 U/L (46-116) C-Reactive Protein, Quantitative 41.2 mg/dL (0.00-0.90) 48.3 mg/dL (0.00-0.90) Total Protein 7.1 G/DL (6.4-8.2) 7.8 G/DL (6.4-8.2) Albumin 2.7 G/DL (3.4-5.0) 2.8 G/DL (3.4-5.0) Globulin 4.4 g/dL 5.0 g/dL Albumin/Globulin Ratio 0.6 (1.0-2.7) 0.6 (1.0-2.7) Random Vancomycin Level 21.9 ug/mL Differential Total Cells Counted 100 Neutrophils % (Manual) 88 % (45-75) Lymphocytes % (Manual) 7 % (20-45) Monocytes % (Manual) 5 % (1-10) Eosinophils % (Manual) 0 % (0-3) Basophils % (Manual) 0 % (0-2) Band Neutrophils 0 % (0-8) Platelet Estimate Adequate Platelet Morphology Normal Red Blood Cell Morphology Normal Ferritin 302 NG/ML (8-388) Lactate Dehydrogenase 440 U/L (81-234) Troponin I 0.000 ng/mL (0.000-0.056) Pro-B-Type Natriuretic Peptide > 10078 pg/mL (0-125) Test 06/28/19 06:20 Height (Feet): 4 Height (Inches): 10.00 Weight (Pounds): 105 Objective Gen: nad, A+O x4 Puilm: ctab, no cwr CV: rrr, no mg Abd: soft, nt, nd Ext: no cce, right upper ext fistula++ aRy Lopez MD Jun 28, 2019 06:49
--- NOTE | 2019-06-28 07:45 | NUR ---
NURSE NOTES: Received patient A/A/O x4, able to make needs known. On O2 via 2L NC. FOR HD today and AV shunt on MIKE dry and intact. ambulates with minimal assist. Isolation observed. No acute resp distress noted. Bed locked, lowest position, alarm on, siderails up x2, call light within reach. will cont to monitor.
[2019-06-28 07:56] LABS: ALANINE AMINOTRANSFERASE 13 U/L (12-78); ALBUMIN 2.6 G/DL (3.4-5.0); ALBUMIN/GLOBULIN RATIO 0.5 (1.0-2.7); ALKALINE PHOSPHATASE 83 U/L (46-116); ANION GAP 12 mmol/L (5-15); ASPARTATE AMINO TRANSFERASE 37 U/L (15-37); BILIRUBIN,TOTAL 0.7 MG/DL (0.2-1.0); BLOOD UREA NITROGEN 54 mg/dL (7-18); CALCIUM 9.4 MG/DL (8.5-10.1); CARBON DIOXIDE 32 MMOL/L (21-32); CHLORIDE 96 MMOL/L (98-107); CREATININE 11.2 MG/DL (0.55-1.30); PHOSPHORUS 5.4 MG/DL (2.5-4.9); POTASSIUM 5.1 MMOL/L (3.5-5.1); SODIUM 139 MMOL/L (136-145)
[2019-06-28 08:00] VITALS: BP 110/82
--- NOTE | 2019-06-28 08:55 | Pulmonology Progress Note ---
Catherine Bryan LEGAL CASHIER 06/28/19 0855: Assessment/Plan Assessment/Plan Problem List: * confirmed COVID-19 acute respiratory illness * bilateral PNA, probably HCAP due to CoVID * Mild transaminitis * ESRD on HD * E/lyte imbalance * HTN * Psychiatric disorder Plan: * Close monitoring of respiratory status and oxygen needs * ID follow, abx as per ID;Vanco and Aztreonam, also on Plaquenil per ID recs * BCX 06/22 and 06/23 NGTD * SARS-CoV-2 by PCR 06/22 detected, on isolation (prior COVID infection was also confirmed by family) * CXR 06/24 - with bilateral mixed interstitial and airspace disease, slightly worse * fup with CXR in am, SCX if able * MDR with spacer prn * O2 titrate to keep sat above 90% * A/tussive prn * Monitor volumes, HD per renal * trend CRP, ferritin; , LDH : last CRP 58 ( trending up), ferritin 302 , LDH 440 * Check D dimer-1.27; * Monitor blood pressure, on Hydralazine currently * DVT prophylaxis * easily agitated, attempted to scratch nurses- will benefit from psych eval * depending on disposition will need another CoVID testing case discussed and evaluated by supervising physician Subjective ROS Limited/Unobtainable: No Constitutional: Reports: fever Gastrointestinal/Abdominal: Reports: no symptoms Psychiatric: Reports: no symptoms Skin: Reports: no symptoms Musculoskeletal: Reports: no symptoms Allergies: Coded Allergies: PENICILLINS (Verified Allergy, Unknown, 01/30/17) hives 01/30/17: ITCHING WITH ZOSYN Subjective on O2 via NC pulse ox stable, no fevers since 06/26 leukopenia resolved CXR pending for this am MELANIA-CoV-2 by PCR 06/22 + detected remains in isolation easily agitated , noncompliant with treatment Objective Last 24 Hour Vital Signs Date Time Temp Pulse Resp B/P (MAP) Pulse Ox O2 Delivery O2 Flow Rate FiO2 06/28/19 04:00 98.9 79 20 119/74 (89) 92 06/28/19 00:00 98.2 76 18 102/49 (66) 100 06/27/19 21:00 Nasal Cannula 2.0 06/27/19 20:00 98.1 72 16 100/50 (67) 100 06/27/19 16:00 97.7 72 19 92/49 (63) 94 06/27/19 12:00 98.5 78 18 132/68 (89) 95 06/27/19 09:00 Nasal Cannula 2.0 Intake and Output 06/27/19 06/28/19 19:00 07:00 Intake Total 710 ml 180 ml Balance 710 ml 180 ml Intake Oral 180 ml IV Total 110 ml Other 600 ml # Voids 2 # Bowel Movements 1 Objective General Appearance: no acute distress Swedish speaking female anxious HEENT: normocephalic, atraumatic, anicteric, mucous membranes moist, PERRL Respiratory/Chest: lungs clear, no respiratory distress, no accessory muscle use Cardiovascular: normal rate, regular rhythm, no JVD Abdomen: normal bowel sounds, soft, non tender, non distended Extremities: no edema, pedal pulses normal, AV fistula + bruit/thrill 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: alert, responsive Musculoskeletal: normal muscle bulk Laboratory Tests 06/28/19 06:20: Sodium Level 139, Potassium Level 5.1, Chloride Level 96L, Carbon Dioxide Level 32, Anion Gap 12, Blood Urea Nitrogen 54H, Creatinine 11.2H, Estimat Glomerular Filtration Rate 3.7, Glucose Level 97, Calcium Level 9.4, Phosphorus Level 5.4H , Total Bilirubin 0.7, Aspartate Amino Transf (AST/SGOT) 37, Alanine Aminotransferase (ALT/SGPT) 13, Alkaline Phosphatase 83, C-Reactive Protein, Quantitative 58.9H, Pro-B-Type Natriuretic Peptide > [id number], Total Protein 7.7, Albumin 2.6L, Globulin 5.1, Albumin/Globulin Ratio 0.5L Current Medications Medications (Trade) Dose Ordered Sig/Sarah Route PRN Reason Start Time Stop Time Status Last Admin Dose Admin Acetaminophen (Tylenol) 650 mg Q4H PRN ORAL Temp >100.5 / mild pain 1-3 06/23/19 23:00 07/23/19 22:59 06/27/19 08:17 Albuterol Sulfate (Proventil MDI) 2 puff Q4H PRN INH Shortness of Breath 06/23/19 23:00 09/21/19 22:59 Albuterol/ Ipratropium (Combivent Respimat) 1 puff Q6HRT INH 06/24/19 01:00 07/24/19 00:59 06/28/19 07:43 Aztreonam 0.25 gm/ Dextrose 55 ml @ 110 mls/hr Q12H IVPB 06/25/19 05:00 07/02/19 04:59 06/28/19 05:16 Clonidine HCl (Catapres Tab) 0.1 mg Q4H PRN ORAL BP over 160 systolic 06/23/19 15:00 09/21/19 14:59 Docusate Sodium (Colace) 100 mg TID ORAL 06/23/19 18:00 07/23/19 17:59 06/26/19 09:10 Guaifenesin/ Dextromethorphan (Robitussin DM Syrup) 10 ml Q4H PRN ORAL For Cough 06/23/19 23:00 09/21/19 22:59 06/27/19 20:42 Heparin Sodium (Porcine) (Heparin 5000 units/ml) 5,000 units EVERY 12 HOURS SUBQ 06/23/19 15:45 08/07/19 15:44 06/27/19 20:42 Hydroxychloroquine Sulfate (Plaquenil) 200 mg Q12HR ORAL 06/25/19 21:00 06/29/19 09:01 06/27/19 20:41 Loperamide HCl (Imodium) 2 mg TIDPRN PRN ORAL Diarrhea 06/25/19 12:45 07/25/19 12:44 06/28/19 00:04 Pantoprazole (Protonix) 40 mg BID ORAL 06/23/19 18:00 07/23/19 17:59 06/27/19 17:22 Sevelamer Carbonate (Renvela) 1,600 mg THREE TIMES A DAY NG 06/25/19 13:00 09/22/19 12:59 06/27/19 17:22 Vancomycin HCl (Vanco rx to dose) 1 ea DAILY PRN MISC Per rx protocol 06/24/19 15:15 07/24/19 15:14 Allan Morales MD 06/28/19 1935: Assessment/Plan Assessment/Plan Patient seen and examined with LE[employer] [facility]. Agree with A&P as it reflects our joint deliberations. CXR worse. Aztreonam/Vanco for HAP in PCN allergy per ID + Plaquenil. Pulm hygiene, titrate O2, HFA's, Hep SQ Subjective Allergies: Coded Allergies: PENICILLINS (Verified Allergy, Unknown, 01/30/17) hives 01/30/17: ITCHING WITH Catherine Barlow NP Jun 28, 2019 08:55 Allan Morales MD Jun 28, 2019 19:35
[2019-06-28] MEDS: Renvela 800mg Pkt NG SCH ×3 (09:00→17:11)
[2019-06-28] MEDS: Docusate 100mg cap ORAL SCH ×3 (09:00→17:11)
[2019-06-28] MEDS: Heparin 5000 units/ml inj SUBQ SCH ×2 (09:00→21:00)
--- NOTE | 2019-06-28 09:16 | NUR ---
*-* INSURANCE *-* ALL CLINICALS ANS REVIEWS HAVE BEEN FAXED TO: ALISA IRVIN:BRITTANY REF# [id number] P: [phone]
--- NOTE | 2019-06-28 09:46 | General Progress Note ---
Assessment/Plan Status: stable Assessment/Plan: S: I am feeling better O: appears comfortable. mild to moderate sob PHYSICAL EXAMINATION: HEAD AND NECK: Atraumatic and normocephalic. CHEST: Diffuse bronchial breathing sounds. HEART: S1, S2. Regular rate and rhythm. ABDOMEN: Soft. No organomegaly. MUSCULOSKELETAL: Positive for the right lesly with AV graft in place. NEUROLOGY: Awake, alert, oriented x3. LABORATORY DATA: Dated June 27 reveiwed Meds: reviewed and reconciled ASSESSMENT: 1. Pneumonia secondary to COVID-19. 2. Hypoxemic respiratory failure. Continue with nasal oxygen. 3. End-stage renal disease, on hemodialysis. 4. Abnormal blood sugar. 5. Hypertension. 6. Hypothyroidism. 7. GI and DVT prophylaxis. PLAN OF CARE: DC Heparin SCD start Hydroxychloroquine Notes from ID reviewed c/w empirical abx to cover possible superimposed bacterial PNA Subjective Allergies: Coded Allergies: PENICILLINS (Verified Allergy, Unknown, 01/30/17) hives 01/30/17: ITCHING WITH ZOSYN Objective Last 24 Hour Vital Signs Date Time Temp Pulse Resp B/P (MAP) Pulse Ox O2 Delivery O2 Flow Rate FiO2 06/28/19 08:00 98.7 119 19 110/82 (91) 95 06/28/19 04:00 98.9 79 20 119/74 (89) 92 06/28/19 00:00 98.2 76 18 102/49 (66) 100 06/27/19 21:00 Nasal Cannula 2.0 06/27/19 20:00 98.1 72 16 100/50 (67) 100 06/27/19 16:00 97.7 72 19 92/49 (63) 94 06/27/19 12:00 98.5 78 18 132/68 (89) 95 Intake and Output 06/27/19 06/28/19 19:00 07:00 Intake Total 710 ml 180 ml Balance 710 ml 180 ml Intake Oral 180 ml IV Total 110 ml Other 600 ml # Voids 2 # Bowel Movements 1 Laboratory Tests 06/28/19 06:20: Sodium Level 139, Potassium Level 5.1, Chloride Level 96L, Carbon Dioxide Level 32, Anion Gap 12, Blood Urea Nitrogen 54H, Creatinine 11.2H, Estimat Glomerular Filtration Rate 3.7, Glucose Level 97, Calcium Level 9.4, Phosphorus Level 5.4H , Total Bilirubin 0.7, Aspartate Amino Transf (AST/SGOT) 37, Alanine Aminotransferase (ALT/SGPT) 13, Alkaline Phosphatase 83, C-Reactive Protein, Quantitative 58.9H, Pro-B-Type Natriuretic Peptide > 05915H, Total Protein 7.7, Albumin 2.6L, Globulin 5.1, Albumin/Globulin Ratio 0.5L Height (Feet): 4 Height (Inches): 10.00 Weight (Pounds): 104 Wally Waller MD Jun 28, 2019 09:46
--- NOTE | 2019-06-28 10:58 | Nephrology Progress Note ---
Assessment/Plan Problem List: (1) Pneumonia (2) COVID-19 Assessment: CRP and LDH are elevated-ferritin and d-dimer are not elevated (3) ESRD (end stage renal disease) on dialysis (4) HTN (hypertension) Assessment COVID-19 infection/pneumonia End-stage renal disease on hemodialysis 3 times a week Hypertension Diabetes mellitus Plan Labs checked management per ID Hemodialysis done June 25 will do again June 27 Keep the blood pressure in check, DC hydralazine Renal diet Subjective ROS Limited/Unobtainable: No Constitutional: Reports: malaise, weakness Objective Objective Last 24 Hour Vital Signs Date Time Temp Pulse Resp B/P (MAP) Pulse Ox O2 Delivery O2 Flow Rate FiO2 06/28/19 09:00 Nasal Cannula 2.0 06/28/19 08:00 98.7 119 19 110/82 (91) 95 06/28/19 04:00 98.9 79 20 119/74 (89) 92 06/28/19 00:00 98.2 76 18 102/49 (66) 100 06/27/19 21:00 Nasal Cannula 2.0 06/27/19 20:00 98.1 72 16 100/50 (67) 100 06/27/19 16:00 97.7 72 19 92/49 (63) 94 06/27/19 12:00 98.5 78 18 132/68 (89) 95 Intake and Output 06/27/19 06/28/19 19:00 07:00 Intake Total 710 ml 180 ml Balance 710 ml 180 ml Intake Oral 180 ml IV Total 110 ml Other 600 ml # Voids 2 # Bowel Movements 1 Laboratory Tests 06/28/19 06:20: Sodium Level 139, Potassium Level 5.1, Chloride Level 96L, Carbon Dioxide Level 32, Anion Gap 12, Blood Urea Nitrogen 54H, Creatinine 11.2H, Estimat Glomerular Filtration Rate 3.7, Glucose Level 97, Calcium Level 9.4, Phosphorus Level 5.4H , Total Bilirubin 0.7, Aspartate Amino Transf (AST/SGOT) 37, Alanine Aminotransferase (ALT/SGPT) 13, Alkaline Phosphatase 83, C-Reactive Protein, Quantitative 58.9H, Pro-B-Type Natriuretic Peptide > 55717Q, Total Protein 7.7, Albumin 2.6L, Globulin 5.1, Albumin/Globulin Ratio 0.5L Height (Feet): 4 Height (Inches): 10.00 Weight (Pounds): 104 General Appearance: no apparent distress, other - No fever today Respiratory/Chest: decreased breath sounds Abdomen: soft Objective No change Rufus Mo MD Jun 28, 2019 10:58
[2019-06-28 12:00] VITALS: BP 112/87
--- NOTE | 2019-06-28 13:42 | NUR ---
NURSE NOTES: called [facility] to reconfirmed. spoke with Myron. will cont to monitor.
--- NOTE | 2019-06-28 13:44 | Diagnostic Imaging Report ---
Indication: Shortness of breath Technique: One view of the chest Comparison: 06/25/2019 Findings: Bilateral interstitial and airspace infiltrates again demonstrated, appearing increased on the right, particularly in the upper lobe. The heart remains enlarged. The pleural spaces are clear. Left arm surgical clips are demonstrated Impression: Mostly stable left-sided infiltrates, increasing right lung infiltrates, likely pneumonia, since prior exam of 3 days earlier
--- NOTE | 2019-06-28 15:41 | Infectious Diseases Prog Note ---
Assessment/Plan Problems: (1) PNA (pneumonia) Assessment & Plan: superimposed with COVID 19 infection, continue vancomycin and aztreonam empirically, monitor chest x-ray. Keep in enhanced droplet isolation (2) COVID-19 Assessment & Plan: tested positive with [employer] A[employer]ST PCR test , continue hydroxychloroquine for now with zinc and vitamin C for five days total . keep an enhanced droplet isolation. MONITOR ferritin, LDH, and D dimer (3) Fever Assessment & Plan: suspect due to the above , IMPROVING , continue Tylenol and wide spectrum antibiotics (4) Sepsis Assessment & Plan: due to the above start vancomycin with azactam pending blood culture (5) ESRD (end stage renal disease) on dialysis Assessment & Plan: continue hemodialysis and renally dosed antibiotics as per pharmacy (6) DM II (diabetes mellitus, type II), controlled Assessment & Plan: recommend tight glycemic control to keep blood glucose between 900724 Subjective Constitutional: Reports: fatigue, anorexia HEENT: Reports: no symptoms Respiratory: Reports: shortness of breath, productive cough Breasts: Reports: no symptoms Cardiovascular: Reports: no symptoms Gastrointestinal/Abdominal: Reports: no symptoms Genitourinary: Reports: no symptoms Neurologic: Reports: no symptoms Psychiatric: Reports: no symptoms Skin: Reports: no symptoms Endocrine: Reports: no symptoms Hematologic: Reports: no symptoms Musculoskeletal: Reports: no symptoms Allergies: Coded Allergies: PENICILLINS (Verified Allergy, Unknown, 01/30/17) hives 01/30/17: ITCHING WITH ZOSYN Objective Vital Signs Last 24 Hour Vital Signs Date Time Temp Pulse Resp B/P (MAP) Pulse Ox O2 Delivery O2 Flow Rate FiO2 06/28/19 12:00 98.7 112 18 112/87 (95) 96 06/28/19 09:00 Nasal Cannula 2.0 06/28/19 08:00 98.7 119 19 110/82 (91) 95 06/28/19 04:00 98.9 79 20 119/74 (89) 92 06/28/19 00:00 98.2 76 18 102/49 (66) 100 06/27/19 21:00 Nasal Cannula 2.0 06/27/19 20:00 98.1 72 16 100/50 (67) 100 06/27/19 16:00 97.7 72 19 92/49 (63) 94 Height (Feet): 4 Height (Inches): 10.00 Weight (Pounds): 104 General Appearance: WD/WN, no acute distress HEENT: normocephalic, atraumatic, anicteric, mucous membranes moist, PERRL Respiratory/Chest: chest wall non-tender, lungs clear, normal breath sounds, no respiratory distress, no accessory muscle use Cardiovascular: normal peripheral pulses, normal rate, regular rhythm, no gallop/murmur, no JVD Abdomen: normal bowel sounds, soft, non tender, no organomegaly, non distended , no mass Extremities: no cyanosis, no clubbing Skin: no rash, no lesions 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: alert, oriented x 3, responsive Lymphatic: no neck adenopathy, no groin adenopathy Musculoskeletal: normal muscle bulk, no effusion Laboratory Tests Test 06/28/19 06:20 Sodium Level 139 MMOL/L (136-145) Potassium Level 5.1 MMOL/L (3.5-5.1) Chloride Level 96 MMOL/L (98-107) L Carbon Dioxide Level 32 MMOL/L (21-32) Anion Gap 12 mmol/L (5-15) Blood Urea Nitrogen 54 mg/dL (7-18) H Creatinine 11.2 MG/DL (0.55-1.30) H Estimat Glomerular Filtration Rate 3.7 mL/min (>60) Glucose Level 97 MG/DL (74-106) Calcium Level 9.4 MG/DL (8.5-10.1) Phosphorus Level 5.4 MG/DL (2.5-4.9) H Total Bilirubin 0.7 MG/DL (0.2-1.0) Aspartate Amino Transf (AST/SGOT) 37 U/L (15-37) Alanine Aminotransferase (ALT/SGPT) 13 U/L (12-78) Alkaline Phosphatase 83 U/L (46-116) C-Reactive Protein, Quantitative 58.9 mg/dL (0.00-0.90) H Pro-B-Type Natriuretic Peptide > 44855 pg/mL (0-125) H Total Protein 7.7 G/DL (6.4-8.2) Albumin 2.6 G/DL (3.4-5.0) L Globulin 5.1 g/dL Albumin/Globulin Ratio 0.5 (1.0-2.7) L Current Medications Medications (Trade) Dose Ordered Sig/Sarah Route PRN Reason Start Time Stop Time Status Last Admin Dose Admin Acetaminophen (Tylenol) 650 mg Q4H PRN ORAL Temp >100.5 / mild pain 1-3 06/23/19 23:00 07/23/19 22:59 06/27/19 08:17 Albuterol Sulfate (Proventil MDI) 2 puff Q4H PRN INH Shortness of Breath 06/23/19 23:00 09/21/19 22:59 Albuterol/ Ipratropium (Combivent Respimat) 1 puff Q6HRT INH 06/24/19 01:00 07/24/19 00:59 06/28/19 13:05 Aztreonam 0.25 gm/ Dextrose 55 ml @ 110 mls/hr Q12H IVPB 06/25/19 05:00 07/02/19 04:59 06/28/19 05:16 Clonidine HCl (Catapres Tab) 0.1 mg Q4H PRN ORAL BP over 160 systolic 06/23/19 15:00 09/21/19 14:59 Docusate Sodium (Colace) 100 mg TID ORAL 06/23/19 18:00 07/23/19 17:59 06/26/19 09:10 Guaifenesin/ Dextromethorphan (Robitussin DM Syrup) 10 ml Q4H PRN ORAL For Cough 06/23/19 23:00 09/21/19 22:59 06/27/19 20:42 Heparin Sodium (Porcine) (Heparin 5000 units/ml) 5,000 units EVERY 12 HOURS SUBQ 06/23/19 15:45 08/07/19 15:44 06/27/19 20:42 Hydroxychloroquine Sulfate (Plaquenil) 200 mg Q12HR ORAL 06/25/19 21:00 06/29/19 09:01 06/27/19 20:41 Loperamide HCl (Imodium) 2 mg TIDPRN PRN ORAL Diarrhea 06/25/19 12:45 07/25/19 12:44 06/28/19 00:04 Pantoprazole (Protonix) 40 mg BID ORAL 06/23/19 18:00 07/23/19 17:59 06/27/19 17:22 Sevelamer Carbonate (Renvela) 1,600 mg THREE TIMES A DAY NG 06/25/19 13:00 09/22/19 12:59 06/27/19 17:22 Vancomycin HCl (Vanco rx to dose) 1 ea DAILY PRN MISC Per rx protocol 06/24/19 15:15 07/24/19 15:14 Shahab Arnett M.D. Jun 28, 2019 15:41
[2019-06-28 16:00] VITALS: BP 115/80
--- NOTE | 2019-06-28 16:45 | NUR ---
CASE MANAGEMENT:REVIEW 06/26/19 SI;COVID-19+ PNA. HYPOXEMIC RESPIRATORY FAILURE. ESRD ON HD. 102.0 101 20 99/58 95% 2L NC IS;PROTONIX PO BID ROBITUSSIN PO Q4 HRS P4N COMBIVENT INH Q6 HRS PRN HYDRALAZINE PO Q8 HRS PLAQUENIL PO Q12 HRS AZTREONAM IV Q12 HRS MED SURG STATUS DCP;PATIENT IS FROM HOME CASE MANAGEMENT:REVIEW 06/27/19 SI;COVID-19+ PNA. HYPOXEMIC RESPIRATORY FAILURE. ESRD ON HD. 100.6 84 19 92/49 94% 2L NC CL 96 BUN 54 CR 11.2 N PHOS 5.4 CRP 58.9 BMP >26911 ALB 2.6 IS;PROTONIX PO BID ROBITUSSIN PO Q4 HRS P4N COMBIVENT INH Q6 HRS PRN HYDRALAZINE PO Q8 HRS PLAQUENIL PO Q12 HRS AZTREONAM IV Q12 HRS MED SURG STATUS DCP;PATIENT IS FROM HOME CASE MANAGEMENT:REVIEW 06/28/19 SI;COVID-19+ PNA. HYPOXEMIC RESPIRATORY FAILURE. ESRD ON HD. 98.9 119 20 102/49 92% 2L N C IS;PROTONIX PO BID ROBITUSSIN PO Q4 HRS P4N COMBIVENT INH Q6 HRS PRN HYDRALAZINE PO Q8 HRS PLAQUENIL PO Q12 HRS AZTREONAM IV Q12 HRS MED SURG STATUS DCP;PATIENT IS FROM HOME PLAN;CONT EMPIRIC ABX CONT PLAQUENIL
--- NOTE | 2019-06-28 19:31 | NUR ---
HAND-OFF: Report given to Mik.
[2019-06-28 20:00] VITALS: BP_SYST 113; BP_SYST 124; BP_DIAS 59
--- NOTE | 2019-06-28 20:00 | NUR ---
NURSE NOTES: Patient received in bed aox4 steady ambulatory, IV is intact and patent. Awaiting for HD. No complaints of pain. Intermittent coughing noted. Will continue to monitor.
--- NOTE | 2019-06-28 21:30 | NUR ---
NURSE NOTES: Patient discharged to [facility] in stable condition via gurney with 2 ambulance personnels. VSS. Belongings brought with patient. ID band removed. IV line removed and restraints removed. Remained free from injury. Addendum: 06/29/19 at 0017 by BERYL CHOI RN RN Disregard above note. Wrong patient.
--- NOTE | 2019-06-28 23:30 | NUR ---
NURSE NOTES: Patient tolerated HD well, initial BP was 87/49, and patient verbalized feeling dizzy. Patient was given a little bit salt water as patient requested and BP went up to 97/53. Instructed to call for assistance before getting up, verbalized understanding. Will continue to monitor.
--- NOTE | 2019-06-28 23:59 | Cardiology Progress Note ---
Assessment/Plan Assessment/Plan 1. Bilateral pulmonary edema with increased in brain natriuretic peptide most likely a component of end-stage renal disease and chronic heart failure with preserved ejection fraction. 2. End-stage renal disease. 3. COVID-19, bilateral pneumonia. 4. History of hypertension, controlled with hydralazine. 5. Diabetes mellitus. Continue aspirin and statins. Subjective Subjective Sinus rhythm at rate of 84. Low grade fever. Objective Last 24 Hour Vital Signs Date Time Temp Pulse Resp B/P (MAP) Pulse Ox O2 Delivery O2 Flow Rate FiO2 06/28/19 21:00 Nasal Cannula 2.0 06/28/19 20:00 99.3 84 18 124/59 (80) 93 06/28/19 16:00 98.6 99 18 115/80 (92) 97 06/28/19 12:00 98.7 112 18 112/87 (95) 96 06/28/19 09:00 Nasal Cannula 2.0 06/28/19 08:00 98.7 119 19 110/82 (91) 95 06/28/19 04:00 98.9 79 20 119/74 (89) 92 06/28/19 00:00 98.2 76 18 102/49 (66) 100 Intake and Output 06/27/19 06/28/19 19:00 07:00 Intake Total 710 ml 180 ml Balance 710 ml 180 ml Intake Oral 180 ml IV Total 110 ml Other 600 ml # Voids 2 # Bowel Movements 1 Laboratory Tests Test 06/28/19 06:20 Sodium Level 139 MMOL/L (136-145) Potassium Level 5.1 MMOL/L (3.5-5.1) Chloride Level 96 MMOL/L (98-107) L Carbon Dioxide Level 32 MMOL/L (21-32) Anion Gap 12 mmol/L (5-15) Blood Urea Nitrogen 54 mg/dL (7-18) H Creatinine 11.2 MG/DL (0.55-1.30) H Estimat Glomerular Filtration Rate 3.7 mL/min (>60) Glucose Level 97 MG/DL (74-106) Calcium Level 9.4 MG/DL (8.5-10.1) Phosphorus Level 5.4 MG/DL (2.5-4.9) H Total Bilirubin 0.7 MG/DL (0.2-1.0) Aspartate Amino Transf (AST/SGOT) 37 U/L (15-37) Alanine Aminotransferase (ALT/SGPT) 13 U/L (12-78) Alkaline Phosphatase 83 U/L (46-116) C-Reactive Protein, Quantitative 58.9 mg/dL (0.00-0.90) H Pro-B-Type Natriuretic Peptide > 70884 pg/mL (0-125) H Total Protein 7.7 G/DL (6.4-8.2) Albumin 2.6 G/DL (3.4-5.0) L Globulin 5.1 g/dL Albumin/Globulin Ratio 0.5 (1.0-2.7) L Objective HEENT: Atraumatic and normocephalic. Anicteric. Pupils are equal, round, reactive to light and accommodation. Extraocular muscles intact. NECK: JVP less than 5 cm. No carotid bruit. Carotid upstroke is 2+ bilaterally. CVS: Normal S1, S2. Regular rate and rhythm. No murmurs, gallops, or rubs. PMI is at fourth intercostal space at the midclavicular line. LUNGS: Diminished breath sounds in both lungs with bibasilar crackles. ABDOMEN: Soft, nontender, nondistended. No hepatosplenomegaly. Positive bowel sounds. EXTREMITIES: No evidence of edema, clubbing, or cyanosis. Param No MD Jun 28, 2019 23:59
[2019-06-29] VITALS: BP 97/56
[2019-06-29 04:00] VITALS: BP 98/60
[2019-06-29] MEDS: Aztreonam Inj 0.25 GM in D5W 55 ML IVPB SCH ×2 (05:04→17:57)
[2019-06-29 06:45] LABS: HEMATOCRIT 38.1 % (37.0-47.0); HEMOGLOBIN 11.8 G/DL (12.0-16.0); MEAN CORPUSCULAR VOLUME 85 FL (80-99); PLATELET COUNT 208 K/UL (150-450); RED CELL DISTRIBUTION WIDTH 16.8 % (11.6-14.8); WHITE BLOOD COUNT 5.7 K/UL (4.8-10.8)
--- NOTE | 2019-06-29 06:51 | Hematology/Onc Progress Note ---
Assessment/Plan Assessment/Plan # Leukopenia on admission - with likely infection, bilateral pulmonary edema with increased in brain natriuretic peptide most likely a component of end- stage renal disease and chronic heart failure with preserved ejection fraction. --> hepatitis and hiv neg --> imaging reviewed, abd us from 3 years ago negative --> smear is noted --> meds have been reviewed --> neupogen sq as needed prn --> wbc trend 3.7-->6.6 # Anemia likely due to End-stage renal disease --> very mild currently, hgb 12 # COVID-19, bilateral pneumonia. --> as per Id, Dr. Arnett on case --> iso, and droplet iso # History of hypertension, controlled with hydralazine --> per cards # Sepsis --> start vancomycin with azactam pending blood culture # ESRD (end stage renal disease) on dialysis --> continue hemodialysis --> renally dosed antibiotics # DM II (diabetes mellitus, type II), controlled --> recommend tight glycemic control to keep blood glucose between [id number] # Dvt ppx heparin sq Appreciate consultation and dw rn Subjective Constitutional: Denies: no symptoms, chills, fever, malaise, weakness, other HEENT: Denies: no symptoms, eye pain, blurred vision, tearing, double vision, ear pain, ear discharge, nose pain, nose congestion, throat pain, throat swelling, mouth pain, mouth swelling, other Cardiovascular: Denies: no symptoms, chest pain, edema, irregular heart rate, lightheadedness, palpitations, syncope, other Respiratory: Denies: no symptoms, cough, shortness of breath, SOB with excertion, SOB at rest, sputum, wheezing, other Genitourinary: Denies: no symptoms, burning, discharge, frequency, flank pain, hematuria, incontinence, pain, urgency, other 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: Denies: no symptoms, anxiety, depressed, emotional problems, headache, numbness, paresthesia, pre-existing deficit, seizure, tingling, tremors, weakness, other Endocrine: Denies: no symptoms, excessive sweating, flushing, intolerance to cold, intolerance to heat, increased hunger, increased thirst, increased urine, unexplained weight gain, unexplained weight loss, other Allergies: Coded Allergies: PENICILLINS (Verified Allergy, Unknown, 01/30/17) hives 01/30/17: ITCHING WITH ZOSYN Subjective 06/27 greenlandic speaking, to get hd, labs yesterday looked better, cbc has been ordered 06/28 tolerated hd well, no bleeding, labs noted, no night sweats Objective Objective Current Medications Medications (Trade) Dose Ordered Sig/Sarah Route PRN Reason Start Time Stop Time Status Last Admin Dose Admin Acetaminophen (Tylenol) 650 mg Q4H PRN ORAL Temp >100.5 / mild pain 1-3 06/23/19 23:00 07/23/19 22:59 06/27/19 08:17 Albuterol Sulfate (Proventil MDI) 2 puff Q4H PRN INH Shortness of Breath 06/23/19 23:00 09/21/19 22:59 Albuterol/ Ipratropium (Combivent Respimat) 1 puff Q6HRT INH 06/24/19 01:00 07/24/19 00:59 06/28/19 13:05 Aztreonam 0.25 gm/ Dextrose 55 ml @ 110 mls/hr Q12H IVPB 06/25/19 05:00 07/02/19 04:59 06/29/19 05:04 Clonidine HCl (Catapres Tab) 0.1 mg Q4H PRN ORAL BP over 160 systolic 06/23/19 15:00 09/21/19 14:59 Docusate Sodium (Colace) 100 mg TID ORAL 06/23/19 18:00 07/23/19 17:59 06/26/19 09:10 Guaifenesin/ Dextromethorphan (Robitussin DM Syrup) 10 ml Q4H PRN ORAL For Cough 06/23/19 23:00 09/21/19 22:59 06/27/19 20:42 Heparin Sodium (Porcine) (Heparin 5000 units/ml) 5,000 units EVERY 12 HOURS SUBQ 06/23/19 15:45 08/07/19 15:44 06/27/19 20:42 Hydroxychloroquine Sulfate (Plaquenil) 200 mg Q12HR ORAL 06/25/19 21:00 06/29/19 09:01 06/28/19 23:35 Loperamide HCl (Imodium) 2 mg TIDPRN PRN ORAL Diarrhea 06/25/19 12:45 07/25/19 12:44 06/28/19 00:04 Pantoprazole (Protonix) 40 mg BID ORAL 06/23/19 18:00 07/23/19 17:59 06/27/19 17:22 Sevelamer Carbonate (Renvela) 1,600 mg THREE TIMES A DAY NG 06/25/19 13:00 09/22/19 12:59 06/27/19 17:22 Vancomycin HCl (Vanco rx to dose) 1 ea DAILY PRN MISC Per rx protocol 06/24/19 15:15 07/24/19 15:14 Last 24 Hour Vital Signs Date Time Temp Pulse Resp B/P (MAP) Pulse Ox O2 Delivery O2 Flow Rate FiO2 06/29/19 04:00 99.0 77 18 98/60 (73) 99 06/29/19 00:00 98.6 86 18 97/56 (70) 99 06/28/19 21:00 Nasal Cannula 2.0 06/28/19 20:00 99.3 84 18 124/59 (80) 93 06/28/19 16:00 98.6 99 18 115/80 (92) 97 06/28/19 12:00 98.7 112 18 112/87 (95) 96 06/28/19 09:00 Nasal Cannula 2.0 06/28/19 08:00 98.7 119 19 110/82 (91) 95 06/28/19 04:00 98.9 79 20 119/74 (89) 92 06/28/19 00:00 98.2 76 18 102/49 (66) 100 06/27/19 21:00 Nasal Cannula 2.0 06/27/19 20:00 98.1 72 16 100/50 (67) 100 06/27/19 16:00 97.7 72 19 92/49 (63) 94 06/27/19 12:00 98.5 78 18 132/68 (89) 95 06/27/19 09:00 Nasal Cannula 2.0 06/27/19 08:47 98.6 06/27/19 08:00 100.6 84 19 116/62 (80) 96 Intake and Output 06/28/19 06/29/19 19:00 07:00 # Voids 4 Labs Test 06/27/19 05:10 06/28/19 06:20 06/29/19 03:50 White Blood Count 6.6 K/UL (4.8-10.8) Red Blood Count 4.52 M/UL (4.20-5.40) Hemoglobin 12.0 G/DL (12.0-16.0) Hematocrit 37.6 % (37.0-47.0) Mean Corpuscular Volume 83 FL (80-99) Mean Corpuscular Hemoglobin 26.5 PG (27.0-31.0) Mean Corpuscular Hemoglobin Concent 31.9 G/DL (32.0-36.0) Red Cell Distribution Width 16.5 % (11.6-14.8) Platelet Count 153 K/UL (150-450) Mean Platelet Volume 7.5 FL (6.5-10.1) Neutrophils (%) (Auto) % (45.0-75.0) Lymphocytes (%) (Auto) % (20.0-45.0) Monocytes (%) (Auto) % (1.0-10.0) Eosinophils (%) (Auto) % (0.0-3.0) Basophils (%) (Auto) % (0.0-2.0) Differential Total Cells Counted 100 Neutrophils % (Manual) 88 % (45-75) Lymphocytes % (Manual) 7 % (20-45) Monocytes % (Manual) 5 % (1-10) Eosinophils % (Manual) 0 % (0-3) Basophils % (Manual) 0 % (0-2) Band Neutrophils 0 % (0-8) Platelet Estimate Adequate Platelet Morphology Normal Red Blood Cell Morphology Normal Sodium Level 141 MMOL/L (136-145) 139 MMOL/L (136-145) Potassium Level 4.2 MMOL/L (3.5-5.1) 5.1 MMOL/L (3.5-5.1) Chloride Level 96 MMOL/L (98-107) 96 MMOL/L (98-107) Carbon Dioxide Level 33 MMOL/L (21-32) 32 MMOL/L (21-32) Anion Gap 12 mmol/L (5-15) 12 mmol/L (5-15) Blood Urea Nitrogen 30 mg/dL (7-18) 54 mg/dL (7-18) Creatinine 7.9 MG/DL (0.55-1.30) 11.2 MG/DL (0.55-1.30) Estimat Glomerular Filtration Rate 5.6 mL/min (>60) 3.7 mL/min (>60) Glucose Level 84 MG/DL (74-106) 97 MG/DL (74-106) Calcium Level 9.6 MG/DL (8.5-10.1) 9.4 MG/DL (8.5-10.1) Phosphorus Level 3.0 MG/DL (2.5-4.9) 5.4 MG/DL (2.5-4.9) Ferritin 302 NG/ML (8-388) Total Bilirubin 0.9 MG/DL (0.2-1.0) 0.7 MG/DL (0.2-1.0) Aspartate Amino Transf (AST/SGOT) 45 U/L (15-37) 37 U/L (15-37) Alanine Aminotransferase (ALT/SGPT) 16 U/L (12-78) 13 U/L (12-78) Alkaline Phosphatase 87 U/L (46-116) 83 U/L (46-116) Lactate Dehydrogenase 440 U/L (81-234) Troponin I 0.000 ng/mL (0.000-0.056) C-Reactive Protein, Quantitative 48.3 mg/dL (0.00-0.90) 58.9 mg/dL (0.00-0.90) Pro-B-Type Natriuretic Peptide > 36398 pg/mL (0-125) > 52394 pg/mL (0-125) Total Protein 7.8 G/DL (6.4-8.2) 7.7 G/DL (6.4-8.2) Albumin 2.8 G/DL (3.4-5.0) 2.6 G/DL (3.4-5.0) Globulin 5.0 g/dL 5.1 g/dL Albumin/Globulin Ratio 0.6 (1.0-2.7) 0.5 (1.0-2.7) Height (Feet): 4 Height (Inches): 10.00 Weight (Pounds): 102 Objective Gen: nad, A+O x4 Puilm: ctab, no cwr CV: rrr, no mg Abd: soft, nt, nd Ext: no cce, right upper ext fistula++ Ray Lopez MD Jun 29, 2019 06:51
[2019-06-29 07:14] LABS: ALANINE AMINOTRANSFERASE 21 U/L (12-78); ALKALINE PHOSPHATASE 98 U/L (46-116); ANION GAP 13 mmol/L (5-15); ASPARTATE AMINO TRANSFERASE 37 U/L (15-37); BILIRUBIN,TOTAL 0.9 MG/DL (0.2-1.0); BLOOD UREA NITROGEN 24 mg/dL (7-18); CARBON DIOXIDE 30 MMOL/L (21-32); CHLORIDE 97 MMOL/L (98-107); CREATININE 6.7 MG/DL (0.55-1.30); PHOSPHORUS 3.6 MG/DL (2.5-4.9); SODIUM 140 MMOL/L (136-145)
--- NOTE | 2019-06-29 07:36 | NUR ---
HAND-OFF: Report given to Little WELLER.
[2019-06-29 07:49] LABS: ALBUMIN 2.5 G/DL (3.4-5.0)
[2019-06-29 08:00] VITALS: BP 97/48
--- NOTE | 2019-06-29 08:09 | NUR ---
NURSE NOTES: Patient is alert and oriented,respirations are unlabored.Patient resting,ate breakfast .Call light within reach.
[2019-06-29] MEDS: Docusate 100mg cap ORAL SCH ×2 (09:00→13:00)
[2019-06-29] MEDS: Renvela 800mg Pkt NG SCH ×3 (09:19→18:00)
--- NOTE | 2019-06-29 09:20 | Pulmonology Progress Note ---
Catherine Bryan EXECUTIVE CHEF ASSISTANT 06/29/19 0920: Assessment/Plan Assessment/Plan Problem List: * confirmed COVID-19 acute respiratory illness * bilateral PNA, probably HCAP due to CoVID * Mild transaminitis * ESRD on HD * E/lyte imbalance * HTN * Psychiatric disorder Plan: * Close monitoring of respiratory status and oxygen needs * ID follow, abx as per ID;Vanco and Aztreonam, completed Plaquenil 06/28 x 5 days - per ID recs * BCX 06/22 and 06/23 NGTD * SARS-CoV-2 by PCR 06/22 detected, on isolation (prior COVID infection was also confirmed by family) * CXR 06/24 - with bilateral mixed interstitial and airspace disease, slightly worse * CXR 06/27 - Mostly stable left-sided infiltrates, increasing right lung infiltrates, likely pneumonia, * SCX if able * MDR with spacer prn * O2 titrate to keep sat above 90% * A/tussive prn * Monitor volumes, HD per renal * trend CRP, ferritin; , LDH : last CRP %0.3 ( trending down), ferritin 302 , LDH 440 * Check D dimer-1.27; * Monitor blood pressure, on Hydralazine currently * DVT prophylaxis * monitor volumes, HD as per nephro with close monitoring of renal parameters and lytes * easily agitated, attempted to scratch nurses- will benefit from psych eval * depending on disposition may need another CoVID testing case discussed and evaluated by supervising physician Subjective ROS Limited/Unobtainable: No Allergies: Coded Allergies: PENICILLINS (Verified Allergy, Unknown, 01/30/17) hives 01/30/17: ITCHING WITH ZOSYN Subjective on O2 via NC pulse ox stable, no fevers since 06/26 CXR 06/27 noted MELANIA-CoV-2 by PCR 06/22 + detected remains in isolation Objective Last 24 Hour Vital Signs Date Time Temp Pulse Resp B/P (MAP) Pulse Ox O2 Delivery O2 Flow Rate FiO2 06/29/19 04:00 99.0 77 18 98/60 (73) 99 06/29/19 00:00 98.6 86 18 97/56 (70) 99 06/28/19 21:00 Nasal Cannula 2.0 06/28/19 20:00 99.3 84 18 124/59 (80) 93 06/28/19 16:00 98.6 99 18 115/80 (92) 97 06/28/19 12:00 98.7 112 18 112/87 (95) 96 Intake and Output 06/28/19 06/29/19 19:00 07:00 Intake Total 55 ml Balance 55 ml IV Total 55 ml # Voids 4 Objective General Appearance: no acute distress Maltese speaking female ,anxious, easily frustrated HEENT: normocephalic, atraumatic, anicteric, mucous membranes moist, PERRL Respiratory/Chest: lungs clear, no respiratory distress, no accessory muscle use Cardiovascular: normal rate, regular rhythm, no JVD Abdomen: normal bowel sounds, soft, non tender, non distended Extremities: no edema, pedal pulses normal, AV fistula + bruit/thrill 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: alert, responsive Musculoskeletal: normal muscle bulk Laboratory Tests 06/29/19 03:50: White Blood Count 5.7, Red Blood Count 4.50, Hemoglobin 11.8L, Hematocrit 38.1, Mean Corpuscular Volume 85, Mean Corpuscular Hemoglobin 26.3L, Mean Corpuscular Hemoglobin Concent 31.1L, Red Cell Distribution Width 16.8H, Platelet Count 208 , Mean Platelet Volume 8.5, Neutrophils (%) (Auto) , Lymphocytes (%) (Auto) , Monocytes (%) (Auto) , Eosinophils (%) (Auto) , Basophils (%) (Auto) , Neutrophils % (Manual) [Pending], Lymphocytes % (Manual) [Pending], Platelet Estimate [Pending], Platelet Morphology [Pending], Sodium Level 140, Potassium Level 5.0, Chloride Level 97L, Carbon Dioxide Level 30, Anion Gap 13, Blood Urea Nitrogen 24H, Creatinine 6.7H, Estimat Glomerular Filtration Rate 6.7, Glucose Level 81, Calcium Level 10.0, Phosphorus Level 3.6, Total Bilirubin 0.9 , Aspartate Amino Transf (AST/SGOT) 37, Alanine Aminotransferase (ALT/SGPT) 21, Alkaline Phosphatase 98, C-Reactive Protein, Quantitative [Pending], Total Protein 8.6H, Albumin 2.5L, Globulin 6.1 Current Medications Medications (Trade) Dose Ordered Sig/Sarah Route PRN Reason Start Time Stop Time Status Last Admin Dose Admin Acetaminophen (Tylenol) 650 mg Q4H PRN ORAL Temp >100.5 / mild pain 1-3 06/23/19 23:00 07/23/19 22:59 06/27/19 08:17 Albuterol Sulfate (Proventil MDI) 2 puff Q4H PRN INH Shortness of Breath 06/23/19 23:00 09/21/19 22:59 Albuterol/ Ipratropium (Combivent Respimat) 1 puff Q6HRT INH 06/24/19 01:00 07/24/19 00:59 06/28/19 13:05 Aztreonam 0.25 gm/ Dextrose 55 ml @ 110 mls/hr Q12H IVPB 06/25/19 05:00 07/02/19 04:59 06/29/19 05:04 Clonidine HCl (Catapres Tab) 0.1 mg Q4H PRN ORAL BP over 160 systolic 06/23/19 15:00 09/21/19 14:59 Docusate Sodium (Colace) 100 mg TID ORAL 06/23/19 18:00 07/23/19 17:59 06/26/19 09:10 Guaifenesin/ Dextromethorphan (Robitussin DM Syrup) 10 ml Q4H PRN ORAL For Cough 06/23/19 23:00 09/21/19 22:59 06/27/19 20:42 Heparin Sodium (Porcine) (Heparin 5000 units/ml) 5,000 units EVERY 12 HOURS SUBQ 06/23/19 15:45 08/07/19 15:44 06/27/19 20:42 Loperamide HCl (Imodium) 2 mg TIDPRN PRN ORAL Diarrhea 06/25/19 12:45 07/25/19 12:44 06/28/19 00:04 Pantoprazole (Protonix) 40 mg BID ORAL 06/23/19 18:00 07/23/19 17:59 06/27/19 17:22 Sevelamer Carbonate (Renvela) 1,600 mg THREE TIMES A DAY NG 06/25/19 13:00 09/22/19 12:59 06/27/19 17:22 Vancomycin HCl (Vanco rx to dose) 1 ea DAILY PRN MISC Per rx protocol 06/24/19 15:15 07/24/19 15:14 Allan Morales MD 06/30/19 1725: Assessment/Plan Assessment/Plan Patient seen and examined with with EXECUTIVE CHEF ASSISTANT, agree with A&P as outlined above as it reflects our joint deliberations. Subjective Allergies: Coded Allergies: PENICILLINS (Verified Allergy, Unknown, 01/30/17) hives 01/30/17: ITCHING WITH Catherine Barlow NP Jun 29, 2019 09:20 Allan Morales MD Jun 30, 2019 17:25
[2019-06-29] MEDS: Heparin 5000 units/ml inj SUBQ SCH ×2 (09:22→20:47)
[2019-06-29 12:00] VITALS: BP 109/60
--- NOTE | 2019-06-29 13:59 | NUR ---
*-* INSURANCE *-* ALL CLINICALS ANS REVIEWS HAVE BEEN FAXED TO: ALISA KENT:BRITTANY REF# [id number] P: [phone] Addendum: 06/30/19 at 1214 by DANIEL DIAZ CM F: [phone]
--- NOTE | 2019-06-29 14:17 | Nephrology Progress Note ---
Assessment/Plan Problem List: (1) Pneumonia (2) COVID-19 Assessment: CRP and LDH are elevated-ferritin and d-dimer are not elevated (3) ESRD (end stage renal disease) on dialysis (4) HTN (hypertension) Assessment COVID-19 infection/pneumonia End-stage renal disease on hemodialysis 3 times a week Hypertension Diabetes mellitus Plan Labs checked management per ID Hemodialysis next June 29 Keep the blood pressure in check, DC hydralazine Renal diet Subjective ROS Limited/Unobtainable: No Constitutional: Reports: malaise, other - Claims overall to be feeling better Objective Objective Last 24 Hour Vital Signs Date Time Temp Pulse Resp B/P (MAP) Pulse Ox O2 Delivery O2 Flow Rate FiO2 06/29/19 09:44 Nasal Cannula 2.0 06/29/19 08:00 96.8 78 20 97/48 (64) 06/29/19 04:00 99.0 77 18 98/60 (73) 99 06/29/19 00:00 98.6 86 18 97/56 (70) 99 06/28/19 21:00 Nasal Cannula 2.0 06/28/19 20:00 99.3 84 18 124/59 (80) 93 06/28/19 16:00 98.6 99 18 115/80 (92) 97 Intake and Output 06/28/19 06/29/19 19:00 07:00 Intake Total 55 ml Balance 55 ml IV Total 55 ml # Voids 4 Laboratory Tests 06/29/19 03:50: White Blood Count 5.7, Red Blood Count 4.50, Hemoglobin 11.8L, Hematocrit 38.1, Mean Corpuscular Volume 85, Mean Corpuscular Hemoglobin 26.3L, Mean Corpuscular Hemoglobin Concent 31.1L, Red Cell Distribution Width 16.8H, Platelet Count 208 , Mean Platelet Volume 8.5, Neutrophils (%) (Auto) , Lymphocytes (%) (Auto) , Monocytes (%) (Auto) , Eosinophils (%) (Auto) , Basophils (%) (Auto) , Differential Total Cells Counted 100, Neutrophils % (Manual) 88H, Lymphocytes % (Manual) 6L, Monocytes % (Manual) 6, Eosinophils % (Manual) 0, Basophils % ( Manual) 0, Band Neutrophils 0, Platelet Estimate Adequate, Platelet Morphology Normal, Red Blood Cell Morphology Normal, Sodium Level 140, Potassium Level 5.0 , Chloride Level 97L, Carbon Dioxide Level 30, Anion Gap 13, Blood Urea Nitrogen 24H, Creatinine 6.7H, Estimat Glomerular Filtration Rate 6.7, Glucose Level 81, Calcium Level 10.0, Phosphorus Level 3.6, Total Bilirubin 0.9, Aspartate Amino Transf (AST/SGOT) 37, Alanine Aminotransferase (ALT/SGPT) 21, Alkaline Phosphatase 98, C-Reactive Protein, Quantitative 50.3H, Total Protein 8.6H, Albumin 2.5L, Globulin 6.1, Random Vancomycin Level 26.4 Height (Feet): 4 Height (Inches): 10.00 Weight (Pounds): 102 General Appearance: no apparent distress Cardiovascular: normal rate Respiratory/Chest: decreased breath sounds Abdomen: soft Objective No change Rufus Mo MD Jun 29, 2019 14:17
--- NOTE | 2019-06-29 15:51 | NUR ---
CERTIFIED OPHTHALMIC TECHNICIAN NOTE CALL MADE TO [facility] [phone]. S/W ANI, CTR DIRECTOR. CONFIRMED PATIENT IS SERVICED AT THIS CENTER ON T--S @ 0800. CONFIRMED THEY ARE CURRENTLY ABLE TO SERVICE PATIENT THEY DO HAVE AN ISOLATION ROOM WHERE COVID POSITIVE PATIENTS ARE PLACED DURING HD. REQUESTS TO BE NOTIFIED UPON PATIENTS DISCHARGE. REQUESTS FOR PATIENT TO BE EDUCATED ON IMPORTANCE OF COMPLIANCE WITH DIALYSIS CENTER RECOMMENDATIONS TO CALL CENTER UPON ARRIVAL PATIENT WILL BE ESCORTED IN TO THE APPROPRIATE ISOLATION AREA UPON ENTRY. PATIENT TO WEAR MASK/MOUTH AND NOSE COVERING AT ALL TIMES.
[2019-06-29 16:00] VITALS: BP 117/54
--- NOTE | 2019-06-29 18:09 | Infectious Diseases Prog Note ---
Assessment/Plan Problems: (1) PNA (pneumonia) Assessment & Plan: superimposed with COVID 19 infection, continue vancomycin and aztreonam empirically, monitor chest x-ray. Keep in enhanced droplet isolation (2) COVID-19 Assessment & Plan: tested positive with [employer] TRACK PCR test , continue hydroxychloroquine for now with zinc and vitamin C for five days total . keep an enhanced droplet isolation. MONITOR ferritin, LDH, and D dimer (3) Fever Assessment & Plan: suspect due to the above , IMPROVING , continue Tylenol and wide spectrum antibiotics (4) Sepsis Assessment & Plan: due to the above start vancomycin with azactam pending blood culture (5) ESRD (end stage renal disease) on dialysis Assessment & Plan: continue hemodialysis and renally dosed antibiotics as per pharmacy (6) DM II (diabetes mellitus, type II), controlled Assessment & Plan: recommend tight glycemic control to keep blood glucose between [id number] Subjective Constitutional: Reports: fatigue HEENT: Reports: no symptoms Respiratory: Reports: dry cough Breasts: Reports: no symptoms Cardiovascular: Reports: no symptoms Gastrointestinal/Abdominal: Reports: no symptoms Genitourinary: Reports: no symptoms Neurologic: Reports: no symptoms Psychiatric: Reports: no symptoms Skin: Reports: no symptoms Endocrine: Reports: no symptoms Hematologic: Reports: no symptoms Musculoskeletal: Reports: no symptoms Allergies: Coded Allergies: PENICILLINS (Verified Allergy, Unknown, 01/30/17) hives 01/30/17: ITCHING WITH ZOSYN Objective Vital Signs Last 24 Hour Vital Signs Date Time Temp Pulse Resp B/P (MAP) Pulse Ox O2 Delivery O2 Flow Rate FiO2 06/29/19 16:00 97.5 81 19 117/54 (75) 100 06/29/19 12:00 97.5 79 18 109/60 (76) 93 06/29/19 09:44 Nasal Cannula 2.0 06/29/19 08:00 96.8 78 20 97/48 (64) 06/29/19 04:00 99.0 77 18 98/60 (73) 99 06/29/19 00:00 98.6 86 18 97/56 (70) 99 06/28/19 21:00 Nasal Cannula 2.0 06/28/19 20:00 99.3 84 18 124/59 (80) 93 Height (Feet): 4 Height (Inches): 10.00 Weight (Pounds): 102 General Appearance: WD/WN, no acute distress HEENT: normocephalic, atraumatic, anicteric, mucous membranes moist, PERRL Respiratory/Chest: chest wall non-tender, no respiratory distress, no accessory muscle use, decreased breath sounds, crackles/rales Cardiovascular: normal peripheral pulses, normal rate, regular rhythm, no gallop/murmur, no JVD Abdomen: normal bowel sounds, soft, non tender, no organomegaly, non distended , no mass, no scars Extremities: no cyanosis, no clubbing Skin: no rash, no lesions, no ulcers 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: alert, oriented x 3, responsive Lymphatic: no neck adenopathy, no groin adenopathy Musculoskeletal: normal muscle bulk Laboratory Tests Test 06/29/19 03:50 White Blood Count 5.7 K/UL (4.8-10.8) Red Blood Count 4.50 M/UL (4.20-5.40) Hemoglobin 11.8 G/DL (12.0-16.0) L Hematocrit 38.1 % (37.0-47.0) Mean Corpuscular Volume 85 FL (80-99) Mean Corpuscular Hemoglobin 26.3 PG (27.0-31.0) L Mean Corpuscular Hemoglobin Concent 31.1 G/DL (32.0-36.0) L Red Cell Distribution Width 16.8 % (11.6-14.8) H Platelet Count 208 K/UL (150-450) Mean Platelet Volume 8.5 FL (6.5-10.1) Neutrophils (%) (Auto) % (45.0-75.0) Lymphocytes (%) (Auto) % (20.0-45.0) Monocytes (%) (Auto) % (1.0-10.0) Eosinophils (%) (Auto) % (0.0-3.0) Basophils (%) (Auto) % (0.0-2.0) Differential Total Cells Counted 100 Neutrophils % (Manual) 88 % (45-75) H Lymphocytes % (Manual) 6 % (20-45) L Monocytes % (Manual) 6 % (1-10) Eosinophils % (Manual) 0 % (0-3) Basophils % (Manual) 0 % (0-2) Band Neutrophils 0 % (0-8) Platelet Estimate Adequate Platelet Morphology Normal Red Blood Cell Morphology Normal Sodium Level 140 MMOL/L (136-145) Potassium Level 5.0 MMOL/L (3.5-5.1) Chloride Level 97 MMOL/L (98-107) L Carbon Dioxide Level 30 MMOL/L (21-32) Anion Gap 13 mmol/L (5-15) Blood Urea Nitrogen 24 mg/dL (7-18) H Creatinine 6.7 MG/DL (0.55-1.30) H Estimat Glomerular Filtration Rate 6.7 mL/min (>60) Glucose Level 81 MG/DL (74-106) Calcium Level 10.0 MG/DL (8.5-10.1) Phosphorus Level 3.6 MG/DL (2.5-4.9) Total Bilirubin 0.9 MG/DL (0.2-1.0) Aspartate Amino Transf (AST/SGOT) 37 U/L (15-37) Alanine Aminotransferase (ALT/SGPT) 21 U/L (12-78) Alkaline Phosphatase 98 U/L (46-116) C-Reactive Protein, Quantitative 50.3 mg/dL (0.00-0.90) H Total Protein 8.6 G/DL (6.4-8.2) H Albumin 2.5 G/DL (3.4-5.0) L Globulin 6.1 g/dL Random Vancomycin Level 26.4 ug/mL Current Medications Medications (Trade) Dose Ordered Sig/Sarah Route PRN Reason Start Time Stop Time Status Last Admin Dose Admin Acetaminophen (Tylenol) 650 mg Q4H PRN ORAL Temp >100.5 / mild pain 1-3 06/23/19 23:00 07/23/19 22:59 06/27/19 08:17 Albuterol Sulfate (Proventil MDI) 2 puff Q4H PRN INH Shortness of Breath 06/23/19 23:00 09/21/19 22:59 Albuterol/ Ipratropium (Combivent Respimat) 1 puff Q6HRT INH 06/24/19 01:00 07/24/19 00:59 06/28/19 13:05 Aztreonam 0.25 gm/ Dextrose 55 ml @ 110 mls/hr Q12H IVPB 06/25/19 05:00 07/02/19 04:59 06/29/19 17:57 Clonidine HCl (Catapres Tab) 0.1 mg Q4H PRN ORAL BP over 160 systolic 06/23/19 15:00 09/21/19 14:59 Guaifenesin/ Dextromethorphan (Robitussin DM Syrup) 10 ml Q4H PRN ORAL For Cough 06/23/19 23:00 09/21/19 22:59 06/27/19 20:42 Heparin Sodium (Porcine) (Heparin 5000 units/ml) 5,000 units EVERY 12 HOURS SUBQ 06/23/19 15:45 08/07/19 15:44 06/29/19 09:22 Loperamide HCl (Imodium) 2 mg TIDPRN PRN ORAL Diarrhea 06/25/19 12:45 07/25/19 12:44 06/29/19 14:00 Pantoprazole (Protonix) 40 mg BID ORAL 06/23/19 18:00 07/23/19 17:59 06/29/19 18:04 Sevelamer Carbonate (Renvela) 1,600 mg THREE TIMES A DAY NG 06/25/19 13:00 09/22/19 12:59 06/29/19 13:29 Vancomycin HCl (Vanco rx to dose) 1 ea DAILY PRN MISC Per rx protocol 06/24/19 15:15 07/24/19 15:14 Shahab Arnett M.D. Jun 29, 2019 18:09
--- NOTE | 2019-06-29 18:30 | NUR ---
NURSE NOTES: Patient resting,respiration unlabored.No complaints.AV shunt to the right upper arm remains with strong bruit and thrill.call light within reach.
--- NOTE | 2019-06-29 19:20 | NUR ---
NURSE NOTES: Pt. received from NITHIN Fitch. Pt. AAOx4, with NC at 2L, breathing even and unlabored, no complaints of pain. IV access left hand 22g, intact, and patent, saline locked. MIKE AV fistula noted, positive for bruit and thrills. Bed is low and locked, side rails x2 up, and call light is in reach. Will continue to monitor.
--- NOTE | 2019-06-29 19:20 | NUR ---
HAND-OFF: Report given to Jonathan WELLER.
[2019-06-29 20:00] VITALS: BP 118/64
--- NOTE | 2019-06-29 20:05 | NUR ---
NURSE NOTES: [facility] Nephrology notified regarding Dialysis ordered for 06/30/19.Myron at call center will send message to Dialysis Nurse.
[2019-06-30] VITALS: BP 121/60
[2019-06-30 04:00] VITALS: BP 126/65
[2019-06-30 05:09] LABS: HEMATOCRIT 36.3 % (37.0-47.0); HEMOGLOBIN 11.3 G/DL (12.0-16.0); MEAN CORPUSCULAR VOLUME 84 FL (80-99); PLATELET COUNT 160 K/UL (150-450); RED BLOOD COUNT 4.32 M/UL (4.20-5.40); RED CELL DISTRIBUTION WIDTH 16.9 % (11.6-14.8); WHITE BLOOD COUNT 3.1 K/UL (4.8-10.8)
[2019-06-30] MEDS: Aztreonam Inj 0.25 GM in D5W 55 ML IVPB SCH ×2 (05:38→17:00)
--- NOTE | 2019-06-30 07:20 | NUR ---
HAND-OFF: Report given to NITHIN Burden.
--- NOTE | 2019-06-30 07:37 | Hematology/Onc Progress Note ---
Assessment/Plan Assessment/Plan # Leukopenia on admission - with likely infection, bilateral pulmonary edema with increased in brain natriuretic peptide most likely a component of end- stage renal disease and chronic heart failure with preserved ejection fraction. --> hepatitis and hiv neg --> imaging reviewed, abd us from 3 years ago negative --> smear is noted --> meds have been reviewed --> neupogen sq as needed prn --> wbc trend 3.7-->6.6-->3.1 # Anemia likely due to End-stage renal disease --> very mild currently, hgb 12 # COVID-19, bilateral pneumonia. --> as per Id, Dr. Arnett on case --> iso, and droplet iso # History of hypertension, controlled with hydralazine --> per cards # Sepsis --> start vancomycin with azactam pending blood culture # ESRD (end stage renal disease) on dialysis --> continue hemodialysis --> renally dosed antibiotics # DM II (diabetes mellitus, type II), controlled --> recommend tight glycemic control to keep blood glucose between [id number] # Dvt ppx heparin sq Appreciate consultation and dw rn Subjective Constitutional: Denies: no symptoms, chills, fever, malaise, weakness, other HEENT: Denies: no symptoms, eye pain, blurred vision, tearing, double vision, ear pain, ear discharge, nose pain, nose congestion, throat pain, throat swelling, mouth pain, mouth swelling, other Cardiovascular: Denies: no symptoms, chest pain, edema, irregular heart rate, lightheadedness, palpitations, syncope, other Respiratory: Denies: no symptoms, cough, shortness of breath, SOB with excertion, SOB at rest, sputum, wheezing, other 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: Denies: no symptoms, anxiety, depressed, emotional problems, headache, numbness, paresthesia, pre-existing deficit, seizure, tingling, tremors, weakness, other Endocrine: Denies: no symptoms, excessive sweating, flushing, intolerance to cold, intolerance to heat, increased hunger, increased thirst, increased urine, unexplained weight gain, unexplained weight loss, other Hematologic/Lymphatic: Denies: no symptoms, anemia, easy bleeding, easy bruising, adenopathy, other Allergies: Coded Allergies: PENICILLINS (Verified Allergy, Unknown, 01/30/17) hives 01/30/17: ITCHING WITH ZOSYN Subjective 06/27 frisian speaking, to get hd, labs yesterday looked better, cbc has been ordered 06/28 tolerated hd well, no bleeding, labs noted, no night sweats 06/29 to get hd today, no bleeding, meds now, labs reviewed Objective Objective Current Medications Medications (Trade) Dose Ordered Sig/Sarah Route PRN Reason Start Time Stop Time Status Last Admin Dose Admin Acetaminophen (Tylenol) 650 mg Q4H PRN ORAL Temp >100.5 / mild pain 1-3 06/23/19 23:00 07/23/19 22:59 06/27/19 08:17 Albuterol Sulfate (Proventil MDI) 2 puff Q4H PRN INH Shortness of Breath 06/23/19 23:00 09/21/19 22:59 Albuterol/ Ipratropium (Combivent Respimat) 1 puff Q6HRT INH 06/24/19 01:00 07/24/19 00:59 06/28/19 13:05 Aztreonam 0.25 gm/ Dextrose 55 ml @ 110 mls/hr Q12H IVPB 06/25/19 05:00 07/02/19 04:59 06/30/19 05:38 Clonidine HCl (Catapres Tab) 0.1 mg Q4H PRN ORAL BP over 160 systolic 06/23/19 15:00 09/21/19 14:59 Guaifenesin/ Dextromethorphan (Robitussin DM Syrup) 10 ml Q4H PRN ORAL For Cough 06/23/19 23:00 09/21/19 22:59 06/27/19 20:42 Heparin Sodium (Porcine) (Heparin 5000 units/ml) 5,000 units EVERY 12 HOURS SUBQ 06/23/19 15:45 08/07/19 15:44 06/29/19 20:47 Loperamide HCl (Imodium) 2 mg TIDPRN PRN ORAL Diarrhea 06/25/19 12:45 07/25/19 12:44 06/29/19 14:00 Pantoprazole (Protonix) 40 mg BID ORAL 06/23/19 18:00 07/23/19 17:59 06/29/19 18:04 Sevelamer Carbonate (Renvela) 1,600 mg THREE TIMES A DAY NG 06/25/19 13:00 09/22/19 12:59 06/29/19 13:29 Vancomycin HCl (Vanco rx to dose) 1 ea DAILY PRN MISC Per rx protocol 06/24/19 15:15 07/24/19 15:14 Last 24 Hour Vital Signs Date Time Temp Pulse Resp B/P (MAP) Pulse Ox O2 Delivery O2 Flow Rate FiO2 06/30/19 04:00 97.9 68 16 126/65 (85) 93 06/30/19 00:00 98.2 74 18 121/60 (80) 93 06/29/19 21:00 Nasal Cannula 2.0 06/29/19 20:00 98.2 72 17 118/64 (82) 92 06/29/19 16:00 97.5 81 19 117/54 (75) 100 06/29/19 12:00 97.5 79 18 109/60 (76) 93 06/29/19 09:44 Nasal Cannula 2.0 06/29/19 08:00 96.8 78 20 97/48 (64) 90 06/29/19 04:00 99.0 77 18 98/60 (73) 99 06/29/19 00:00 98.6 86 18 97/56 (70) 99 06/28/19 21:00 Nasal Cannula 2.0 06/28/19 20:00 99.3 84 18 124/59 (80) 93 06/28/19 16:00 98.6 99 18 115/80 (92) 97 06/28/19 12:00 98.7 112 18 112/87 (95) 96 06/28/19 09:00 Nasal Cannula 2.0 06/28/19 08:00 98.7 119 19 110/82 (91) 95 Intake and Output 06/29/19 06/30/19 19:00 07:00 Intake Total 1460 ml 240 ml Balance 1460 ml 240 ml Intake Oral 1460 ml 240 ml # Voids 5 # Bowel Movements 1 Labs Test 06/28/19 06:20 06/29/19 03:50 06/30/19 04:50 Sodium Level 139 MMOL/L (136-145) 140 MMOL/L (136-145) Potassium Level 5.1 MMOL/L (3.5-5.1) 5.0 MMOL/L (3.5-5.1) Chloride Level 96 MMOL/L (98-107) 97 MMOL/L (98-107) Carbon Dioxide Level 32 MMOL/L (21-32) 30 MMOL/L (21-32) Anion Gap 12 mmol/L (5-15) 13 mmol/L (5-15) Blood Urea Nitrogen 54 mg/dL (7-18) 24 mg/dL (7-18) Creatinine 11.2 MG/DL (0.55-1.30) 6.7 MG/DL (0.55-1.30) Estimat Glomerular Filtration Rate 3.7 mL/min (>60) 6.7 mL/min (>60) Glucose Level 97 MG/DL (74-106) 81 MG/DL (74-106) Calcium Level 9.4 MG/DL (8.5-10.1) 10.0 MG/DL (8.5-10.1) Phosphorus Level 5.4 MG/DL (2.5-4.9) 3.6 MG/DL (2.5-4.9) Total Bilirubin 0.7 MG/DL (0.2-1.0) 0.9 MG/DL (0.2-1.0) Aspartate Amino Transf (AST/SGOT) 37 U/L (15-37) 37 U/L (15-37) Alanine Aminotransferase (ALT/SGPT) 13 U/L (12-78) 21 U/L (12-78) Alkaline Phosphatase 83 U/L (46-116) 98 U/L (46-116) C-Reactive Protein, Quantitative 58.9 mg/dL (0.00-0.90) 50.3 mg/dL (0.00-0.90) Pro-B-Type Natriuretic Peptide > 96366 pg/mL (0-125) Total Protein 7.7 G/DL (6.4-8.2) 8.6 G/DL (6.4-8.2) Albumin 2.6 G/DL (3.4-5.0) 2.5 G/DL (3.4-5.0) Globulin 5.1 g/dL 6.1 g/dL Albumin/Globulin Ratio 0.5 (1.0-2.7) White Blood Count 5.7 K/UL (4.8-10.8) 3.1 K/UL (4.8-10.8) Red Blood Count 4.50 M/UL (4.20-5.40) 4.32 M/UL (4.20-5.40) Hemoglobin 11.8 G/DL (12.0-16.0) 11.3 G/DL (12.0-16.0) Hematocrit 38.1 % (37.0-47.0) 36.3 % (37.0-47.0) Mean Corpuscular Volume 85 FL (80-99) 84 FL (80-99) Mean Corpuscular Hemoglobin 26.3 PG (27.0-31.0) 26.3 PG (27.0-31.0) Mean Corpuscular Hemoglobin Concent 31.1 G/DL (32.0-36.0) 31.2 G/DL (32.0-36.0) Red Cell Distribution Width 16.8 % (11.6-14.8) 16.9 % (11.6-14.8) Platelet Count 208 K/UL (150-450) 160 K/UL (150-450) Mean Platelet Volume 8.5 FL (6.5-10.1) 7.3 FL (6.5-10.1) Neutrophils (%) (Auto) % (45.0-75.0) % (45.0-75.0) Lymphocytes (%) (Auto) % (20.0-45.0) % (20.0-45.0) Monocytes (%) (Auto) % (1.0-10.0) % (1.0-10.0) Eosinophils (%) (Auto) % (0.0-3.0) % (0.0-3.0) Basophils (%) (Auto) % (0.0-2.0) % (0.0-2.0) Differential Total Cells Counted 100 Neutrophils % (Manual) 88 % (45-75) Lymphocytes % (Manual) 6 % (20-45) Monocytes % (Manual) 6 % (1-10) Eosinophils % (Manual) 0 % (0-3) Basophils % (Manual) 0 % (0-2) Band Neutrophils 0 % (0-8) Platelet Estimate Adequate Platelet Morphology Normal Red Blood Cell Morphology Normal Random Vancomycin Level 26.4 ug/mL Height (Feet): 4 Height (Inches): 10.00 Weight (Pounds): 103 Objective Gen: nad, A+O x4 Puilm: ctab, no cwr CV: rrr, no mg Abd: soft, nt, nd Ext: no cce, right upper ext fistula++ Ray Lopez MD Jun 30, 2019 07:37
[2019-06-30 08:00] VITALS: BP 134/71
--- NOTE | 2019-06-30 08:13 | NUR ---
NURSE NOTES: Patient alert x4, Yi speaking; On Nasal Cannula 2 Liters, no sing of distress and shortness of breath; no sing of chest pain; IV Left Hand flushes well; Hemodialysis Right Upper AV shunt, patient scheduled Hemodialysis for today; per Hemodialysis nurse, will hold BP and Heparin meds; side rails up x2, breaks engaged, bed at lowest position; call light within reach; will keep monitoring and carry out the plan of care.
[2019-06-30] MEDS: Renvela 800mg Pkt NG SCH ×3 (09:50→17:00)
[2019-06-30] MEDS: Heparin 5000 units/ml inj SUBQ SCH ×2 (09:51→21:00)
--- NOTE | 2019-06-30 11:03 | General Progress Note ---
Assessment/Plan Status: stable Assessment/Plan: S: I am feeling better O: appears comfortable. mild to moderate sob PHYSICAL EXAMINATION: HEAD AND NECK: Atraumatic and normocephalic. CHEST: Diffuse bronchial breathing sounds. HEART: S1, S2. Regular rate and rhythm. ABDOMEN: Soft. No organomegaly. MUSCULOSKELETAL: Positive for the right lesly with AV graft in place. NEUROLOGY: Awake, alert, oriented x3. LABORATORY DATA: Dated June 29 reveiwed Meds: reviewed and reconciled ASSESSMENT: 1. Pneumonia secondary to COVID-19. 2. Hypoxemic respiratory failure. Continue with nasal oxygen. 3. End-stage renal disease, on hemodialysis. 4. Abnormal blood sugar. 5. Hypertension. 6. Hypothyroidism. 7. GI and DVT prophylaxis. PLAN OF CARE: DC Heparin SCD continue Hydroxychloroquine Notes from ID and pulmonary reviewed c/w empirical abx to cover possible superimposed bacterial PNA Subjective Allergies: Coded Allergies: PENICILLINS (Verified Allergy, Unknown, 01/30/17) hives 01/30/17: ITCHING WITH ZOSYN Objective Last 24 Hour Vital Signs Date Time Temp Pulse Resp B/P (MAP) Pulse Ox O2 Delivery O2 Flow Rate FiO2 06/30/19 08:00 98.4 93 20 134/71 (92) 94 06/30/19 04:00 97.9 68 16 126/65 (85) 93 06/30/19 00:00 98.2 74 18 121/60 (80) 93 06/29/19 21:00 Nasal Cannula 2.0 06/29/19 20:00 98.2 72 17 118/64 (82) 92 06/29/19 16:00 97.5 81 19 117/54 (75) 100 06/29/19 12:00 97.5 79 18 109/60 (76) 93 Intake and Output 06/29/19 06/30/19 19:00 07:00 Intake Total 1460 ml 240 ml Balance 1460 ml 240 ml Intake Oral 1460 ml 240 ml # Voids 5 # Bowel Movements 1 Laboratory Tests 06/30/19 04:50: White Blood Count 3.1L, Red Blood Count 4.32, Hemoglobin 11.3L, Hematocrit 36.3L , Mean Corpuscular Volume 84, Mean Corpuscular Hemoglobin 26.3L, Mean Corpuscular Hemoglobin Concent 31.2L, Red Cell Distribution Width 16.9H, Platelet Count 160, Mean Platelet Volume 7.3, Neutrophils (%) (Auto) , Lymphocytes (%) (Auto) , Monocytes (%) (Auto) , Eosinophils (%) (Auto) , Basophils (%) (Auto) Height (Feet): 4 Height (Inches): 10.00 Weight (Pounds): 103 Wally Waller MD Jun 30, 2019 11:03
--- NOTE | 2019-06-30 11:26 | Nephrology Progress Note ---
Assessment/Plan Problem List: (1) Pneumonia (2) COVID-19 Assessment: CRP and LDH are elevated-ferritin and d-dimer are not elevated (3) ESRD (end stage renal disease) on dialysis (4) HTN (hypertension) Assessment COVID-19 infection/pneumonia End-stage renal disease on hemodialysis 3 times a week Hypertension Diabetes mellitus Plan No labs today management per ID Hemodialysis next June 29 Keep the blood pressure in check, Renal diet Subjective ROS Limited/Unobtainable: No Constitutional: Reports: malaise Objective Objective Last 24 Hour Vital Signs Date Time Temp Pulse Resp B/P (MAP) Pulse Ox O2 Delivery O2 Flow Rate FiO2 06/30/19 09:00 Nasal Cannula 2.0 06/30/19 08:00 98.4 93 20 134/71 (92) 94 06/30/19 04:00 97.9 68 16 126/65 (85) 93 06/30/19 00:00 98.2 74 18 121/60 (80) 93 06/29/19 21:00 Nasal Cannula 2.0 06/29/19 20:00 98.2 72 17 118/64 (82) 92 06/29/19 16:00 97.5 81 19 117/54 (75) 100 06/29/19 12:00 97.5 79 18 109/60 (76) 93 Intake and Output 06/29/19 06/30/19 19:00 07:00 Intake Total 1460 ml 240 ml Balance 1460 ml 240 ml Intake Oral 1460 ml 240 ml # Voids 5 # Bowel Movements 1 Current Medications Medications (Trade) Dose Ordered Sig/Sarah Route PRN Reason Start Time Stop Time Status Last Admin Dose Admin Acetaminophen (Tylenol) 650 mg Q4H PRN ORAL Temp >100.5 / mild pain 1-3 06/23/19 23:00 07/23/19 22:59 06/27/19 08:17 Albuterol Sulfate (Proventil MDI) 2 puff Q4H PRN INH Shortness of Breath 06/23/19 23:00 09/21/19 22:59 Albuterol/ Ipratropium (Combivent Respimat) 1 puff Q6HRT INH 06/24/19 01:00 07/24/19 00:59 06/28/19 13:05 Aztreonam 0.25 gm/ Dextrose 55 ml @ 110 mls/hr Q12H IVPB 06/25/19 05:00 07/02/19 04:59 06/30/19 05:38 Clonidine HCl (Catapres Tab) 0.1 mg Q4H PRN ORAL BP over 160 systolic 06/23/19 15:00 09/21/19 14:59 Guaifenesin/ Dextromethorphan (Robitussin DM Syrup) 10 ml Q4H PRN ORAL For Cough 06/23/19 23:00 09/21/19 22:59 06/27/19 20:42 Heparin Sodium (Porcine) (Heparin 5000 units/ml) 5,000 units EVERY 12 HOURS SUBQ 06/23/19 15:45 08/07/19 15:44 06/29/19 20:47 Loperamide HCl (Imodium) 2 mg TIDPRN PRN ORAL Diarrhea 06/25/19 12:45 07/25/19 12:44 06/29/19 14:00 Pantoprazole (Protonix) 40 mg BID ORAL 06/23/19 18:00 07/23/19 17:59 06/30/19 09:50 Sevelamer Carbonate (Renvela) 1,600 mg THREE TIMES A DAY NG 06/25/19 13:00 09/22/19 12:59 06/30/19 09:50 Vancomycin HCl (Vanco rx to dose) 1 ea DAILY PRN MISC Per rx protocol 06/24/19 15:15 07/24/19 15:14 Laboratory Tests 06/30/19 04:50: White Blood Count 3.1L, Red Blood Count 4.32, Hemoglobin 11.3L, Hematocrit 36.3L , Mean Corpuscular Volume 84, Mean Corpuscular Hemoglobin 26.3L, Mean Corpuscular Hemoglobin Concent 31.2L, Red Cell Distribution Width 16.9H, Platelet Count 160, Mean Platelet Volume 7.3, Neutrophils (%) (Auto) , Lymphocytes (%) (Auto) , Monocytes (%) (Auto) , Eosinophils (%) (Auto) , Basophils (%) (Auto) Height (Feet): 4 Height (Inches): 10.00 Weight (Pounds): 103 General Appearance: no apparent distress, other - Overall he is feeling better Cardiovascular: normal rate Respiratory/Chest: decreased breath sounds Abdomen: soft Objective No change Fouladian,Rufus MD Jun 30, 2019 11:26
[2019-06-30 12:00] VITALS: BP 147/78
--- NOTE | 2019-06-30 13:53 | NUR ---
*-* INSURANCE *-* ALL AVAILABLE CLINICALS HAVE BEEN FAXED TO: [facility] P: [phone] F: [phone] &- ALISA IRVIN:BRITTANY REF# [id number] P: [phone] F: [phone]
[2019-06-30 16:00] VITALS: BP 124/59
--- NOTE | 2019-06-30 16:11 | Infectious Diseases Prog Note ---
Assessment/Plan Problems: (1) PNA (pneumonia) Assessment & Plan: superimposed with COVID 19 infection, continue vancomycin and aztreonam empirically, monitor chest x-ray. Keep in enhanced droplet isolation (2) COVID-19 Assessment & Plan: tested positive with [employer] INS[employer]OR PCR test , continue hydroxychloroquine with zinc and vitamin C for five days total . keep an enhanced droplet isolation. MONITOR ferritin, LDH, and D dimer (3) Fever Assessment & Plan: suspect due to the above , IMPROVING , continue Tylenol and wide spectrum antibiotics (4) Sepsis Assessment & Plan: due to the above start vancomycin with azactam pending blood culture (5) ESRD (end stage renal disease) on dialysis Assessment & Plan: continue hemodialysis and renally dosed antibiotics as per pharmacy (6) DM II (diabetes mellitus, type II), controlled Assessment & Plan: recommend tight glycemic control to keep blood glucose between [id number] Subjective Constitutional: Reports: fatigue HEENT: Reports: no symptoms Respiratory: Reports: dry cough Breasts: Reports: no symptoms Gastrointestinal/Abdominal: Reports: no symptoms Genitourinary: Reports: no symptoms Neurologic: Reports: no symptoms Psychiatric: Reports: no symptoms Skin: Reports: no symptoms Endocrine: Reports: no symptoms Hematologic: Reports: no symptoms Musculoskeletal: Reports: no symptoms Allergies: Coded Allergies: PENICILLINS (Verified Allergy, Unknown, 01/30/17) hives 01/30/17: ITCHING WITH ZOSYN Objective Vital Signs Last 24 Hour Vital Signs Date Time Temp Pulse Resp B/P (MAP) Pulse Ox O2 Delivery O2 Flow Rate FiO2 06/30/19 12:00 97.3 79 20 147/78 (101) 95 06/30/19 09:00 Nasal Cannula 2.0 06/30/19 08:00 98.4 93 20 134/71 (92) 94 06/30/19 04:00 97.9 68 16 126/65 (85) 93 06/30/19 00:00 98.2 74 18 121/60 (80) 93 06/29/19 21:00 Nasal Cannula 2.0 06/29/19 20:00 98.2 72 17 118/64 (82) 92 Height (Feet): 4 Height (Inches): 10.00 Weight (Pounds): 103 General Appearance: WD/WN, no acute distress HEENT: normocephalic, atraumatic, anicteric, mucous membranes moist, PERRL Respiratory/Chest: chest wall non-tender, no respiratory distress, no accessory muscle use, decreased breath sounds, crackles/rales Cardiovascular: normal peripheral pulses, normal rate, regular rhythm, no gallop/murmur, no JVD Abdomen: normal bowel sounds, soft, non tender, no organomegaly, non distended , no mass, no scars Extremities: no cyanosis, no clubbing Skin: no rash, no lesions, no ulcers 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: 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 normal, alert, responsive Lymphatic: no neck adenopathy, no groin adenopathy Musculoskeletal: normal muscle bulk, no effusion Laboratory Tests Test 06/30/19 04:50 White Blood Count 3.1 K/UL (4.8-10.8) L Red Blood Count 4.32 M/UL (4.20-5.40) Hemoglobin 11.3 G/DL (12.0-16.0) L Hematocrit 36.3 % (37.0-47.0) L Mean Corpuscular Volume 84 FL (80-99) Mean Corpuscular Hemoglobin 26.3 PG (27.0-31.0) L Mean Corpuscular Hemoglobin Concent 31.2 G/DL (32.0-36.0) L Red Cell Distribution Width 16.9 % (11.6-14.8) H Platelet Count 160 K/UL (150-450) Mean Platelet Volume 7.3 FL (6.5-10.1) Neutrophils (%) (Auto) % (45.0-75.0) Lymphocytes (%) (Auto) % (20.0-45.0) Monocytes (%) (Auto) % (1.0-10.0) Eosinophils (%) (Auto) % (0.0-3.0) Basophils (%) (Auto) % (0.0-2.0) Current Medications Medications (Trade) Dose Ordered Sig/Sarah Route PRN Reason Start Time Stop Time Status Last Admin Dose Admin Acetaminophen (Tylenol) 650 mg Q4H PRN ORAL Temp >100.5 / mild pain 1-3 06/23/19 23:00 07/23/19 22:59 06/27/19 08:17 Albuterol Sulfate (Proventil MDI) 2 puff Q4H PRN INH Shortness of Breath 4/22/20 23:00 09/21/19 22:59 Albuterol/ Ipratropium (Combivent Respimat) 1 puff Q6HRT INH 06/24/19 01:00 07/24/19 00:59 06/30/19 12:35 Aztreonam 0.25 gm/ Dextrose 55 ml @ 110 mls/hr Q12H IVPB 06/25/19 05:00 07/02/19 04:59 06/30/19 05:38 Clonidine HCl (Catapres Tab) 0.1 mg Q4H PRN ORAL BP over 160 systolic 06/23/19 15:00 09/21/19 14:59 Guaifenesin/ Dextromethorphan (Robitussin DM Syrup) 10 ml Q4H PRN ORAL For Cough 06/23/19 23:00 09/21/19 22:59 06/27/19 20:42 Heparin Sodium (Porcine) (Heparin 5000 units/ml) 5,000 units EVERY 12 HOURS SUBQ 06/23/19 15:45 08/07/19 15:44 06/29/19 20:47 Loperamide HCl (Imodium) 2 mg TIDPRN PRN ORAL Diarrhea 06/25/19 12:45 07/25/19 12:44 06/29/19 14:00 Pantoprazole (Protonix) 40 mg BID ORAL 06/23/19 18:00 07/23/19 17:59 06/30/19 09:50 Sevelamer Carbonate (Renvela) 1,600 mg THREE TIMES A DAY NG 06/25/19 13:00 09/22/19 12:59 06/30/19 12:33 Vancomycin HCl (Vanco rx to dose) 1 ea DAILY PRN MISC Per rx protocol 06/24/19 15:15 07/24/19 15:14 Shahab Arnett M.D. Jun 30, 2019 16:11
--- NOTE | 2019-06-30 17:09 | NUR ---
CASE MANAGEMENT:REVIEW SI; COVID-19+ PNA. HYPOXEMIC RESPIRATORY FAILURE. ESRD ON HD. 98.4 93 20 147/45 93% 2L NC IS; PROTONIX PO BID ROBITUSSIN PO Q4 HRS P4N COMBIVENT INH Q6 HRS PRN HYDRALAZINE PO Q8 HRS AZTREONAM IV Q12 HRS VANCOMYCIN IV PRN PER PROTOCOL MED SURG STATUS DCP; PATIENT IS FROM HOME PLAN; CONT EMPIRIC ABX
--- NOTE | 2019-06-30 18:31 | NUR ---
NURSE NOTES: I called [facility] and spoke with Judy regarding patient's Hemodialysis; waiting call back;
--- NOTE | 2019-06-30 18:34 | NUR ---
NURSE NOTES: Hemodialysis nurse called back saying that she is in ICU; will dialysis patient later tonight;
--- NOTE | 2019-06-30 19:28 | NUR ---
HAND-OFF: Report given to NITHIN Edwards.
--- NOTE | 2019-06-30 19:30 | NUR ---
NURSE NOTES: Received patient in no apparent distress. A&OX4. NC 2L on. IV site patent and intact. AV shunt on right upper arm, bruit and thrill present. Waiting for hemodialysis. Bed in lowest position. Call light within reach. Will continue to monitor.
[2019-06-30 20:00] VITALS: BP 152/68
--- NOTE | 2019-06-30 22:47 | Cardiology Progress Note ---
Assessment/Plan Assessment/Plan 1. Bilateral pulmonary edema with increased in brain natriuretic peptide most likely a component of end-stage renal disease and chronic heart failure with preserved ejection fraction. 2. End-stage renal disease. 3. COVID-19, bilateral pneumonia. 4. History of hypertension, off hydralazine. Start low dose amlodipine. 5. Diabetes mellitus. Continue aspirin and statins. Subjective Subjective Sinus rhythm at rate of 73. Objective Last 24 Hour Vital Signs Date Time Temp Pulse Resp B/P (MAP) Pulse Ox O2 Delivery O2 Flow Rate FiO2 06/30/19 20:00 97.9 73 22 152/68 (96) 94 06/30/19 16:00 97.6 72 20 124/59 (80) 95 06/30/19 12:00 97.3 79 20 147/78 (101) 95 06/30/19 09:00 Nasal Cannula 2.0 06/30/19 08:00 98.4 93 20 134/71 (92) 94 06/30/19 04:00 97.9 68 16 126/65 (85) 93 06/30/19 00:00 98.2 74 18 121/60 (80) 93 Intake and Output 06/29/19 06/30/19 19:00 07:00 Intake Total 1460 ml 240 ml Balance 1460 ml 240 ml Intake Oral 1460 ml 240 ml # Voids 5 # Bowel Movements 1 Laboratory Tests Test 06/30/19 04:50 White Blood Count 3.1 K/UL (4.8-10.8) L Red Blood Count 4.32 M/UL (4.20-5.40) Hemoglobin 11.3 G/DL (12.0-16.0) L Hematocrit 36.3 % (37.0-47.0) L Mean Corpuscular Volume 84 FL (80-99) Mean Corpuscular Hemoglobin 26.3 PG (27.0-31.0) L Mean Corpuscular Hemoglobin Concent 31.2 G/DL (32.0-36.0) L Red Cell Distribution Width 16.9 % (11.6-14.8) H Platelet Count 160 K/UL (150-450) Mean Platelet Volume 7.3 FL (6.5-10.1) Neutrophils (%) (Auto) % (45.0-75.0) Lymphocytes (%) (Auto) % (20.0-45.0) Monocytes (%) (Auto) % (1.0-10.0) Eosinophils (%) (Auto) % (0.0-3.0) Basophils (%) (Auto) % (0.0-2.0) Objective HEENT: Atraumatic and normocephalic. Anicteric. Pupils are equal, round, reactive to light and accommodation. Extraocular muscles intact. NECK: JVP less than 5 cm. No carotid bruit. Carotid upstroke is 2+ bilaterally. CVS: Normal S1, S2. Regular rate and rhythm. No murmurs, gallops, or rubs. PMI is at fourth intercostal space at the midclavicular line. LUNGS: Diminished breath sounds in both lungs with bibasilar crackles. ABDOMEN: Soft, nontender, nondistended. No hepatosplenomegaly. Positive bowel sounds. EXTREMITIES: No evidence of edema, clubbing, or cyanosis. Param No MD Jun 30, 2019 22:47
[2019-07-01] VITALS: BP 121/63
[2019-07-01 04:00] VITALS: BP 124/70
[2019-07-01] MEDS: Aztreonam Inj 0.25 GM in D5W 55 ML IVPB SCH ×2 (05:05→16:14)
[2019-07-01 06:04] LABS: BASOPHILS % (AUTO) 0.9 % (0.0-2.0); EOSINOPHILS % (AUTO) 3.3 % (0.0-3.0); HEMATOCRIT 37.6 % (37.0-47.0); HEMOGLOBIN 11.7 G/DL (12.0-16.0); LYMPHOCYTES % (AUTO) 10.9 % (20.0-45.0); MEAN CORPUSCULAR VOLUME 85 FL (80-99); NEUTROPHILS % (AUTO) 74.9 % (45.0-75.0); PLATELET COUNT 242 K/UL (150-450); RED BLOOD COUNT 4.45 M/UL (4.20-5.40); RED CELL DISTRIBUTION WIDTH 16.6 % (11.6-14.8); WHITE BLOOD COUNT 3.7 K/UL (4.8-10.8)
[2019-07-01 06:59] LABS: ALANINE AMINOTRANSFERASE 14 U/L (12-78); ALBUMIN 2.7 G/DL (3.4-5.0); ALBUMIN/GLOBULIN RATIO 0.5 (1.0-2.7); ALKALINE PHOSPHATASE 92 U/L (46-116); ANION GAP 10 mmol/L (5-15); ASPARTATE AMINO TRANSFERASE 27 U/L (15-37); BILIRUBIN,TOTAL 0.7 MG/DL (0.2-1.0); BLOOD UREA NITROGEN 30 mg/dL (7-18); CALCIUM 9.6 MG/DL (8.5-10.1); CARBON DIOXIDE 33 MMOL/L (21-32); CHLORIDE 97 MMOL/L (98-107); CREATININE 6.5 MG/DL (0.55-1.30); POTASSIUM 3.8 MMOL/L (3.5-5.1); SODIUM 140 MMOL/L (136-145)
[2019-07-01 07:01] LABS: PHOSPHORUS 4.5 MG/DL (2.5-4.9)
--- NOTE | 2019-07-01 07:21 | NUR ---
HAND-OFF: Report given to Jenise WELLER.
--- NOTE | 2019-07-01 07:22 | NUR ---
NURSE NOTES: Patient alert x4, Swedish speaking; on Nasal Cannula 2 liters, no sings of distress and shortness of breath; no sing of chest pain; Hemodilaysis access Right Upper arm AV shunt; patient Hemodialyses last night and removed 1 Liter; IV Left-Hand TKO; side rails up x2, breaks engaged, bed at lowest position, call light within reach; will keep monitoring.
[2019-07-01 08:00] VITALS: BP 116/56
[2019-07-01] MEDS: Renvela 800mg Pkt NG SCH ×3 (08:30→17:43)
[2019-07-01] MEDS: Heparin 5000 units/ml inj SUBQ SCH ×2 (08:31→20:46)
--- NOTE | 2019-07-01 08:52 | Pulmonology Progress Note ---
Catherine Bryan WEATHERIZATION COORDINATOR 07/01/19 0852: Assessment/Plan Assessment/Plan Problem List: * confirmed COVID-19 acute respiratory illness * bilateral PNA, probably HCAP due to CoVID * Mild transaminitis * ESRD on HD * E/lyte imbalance * HTN * Psychiatric disorder Plan: * Close monitoring of respiratory status and oxygen needs * ID follow, abx as per ID;Vanco and Aztreonam, completed Plaquenil 06/28 x 5 days - per ID recs * BCX 06/22 and 06/23 NGTD * SARS-CoV-2 by PCR 06/22 detected, on isolation (prior COVID infection was also confirmed by family) * CXR 06/24 - with bilateral mixed interstitial and airspace disease, slightly worse * CXR 06/27 - Mostly stable left-sided infiltrates, increasing right lung infiltrates, likely pneumonia, * CXR this am pending * SCX if able * MDR with spacer prn * O2 titrate to keep sat above 90% * A/tussive prn * Monitor volumes, HD per renal * trend CRP, ferritin; , LDH : last CRP 20.5( trending down), ferritin 302 , LDH 440 * Check D dimer-1.27; * Monitor blood pressure, on Hydralazine currently * DVT prophylaxis * monitor volumes, HD as per nephro with close monitoring of renal parameters and lytes * easily agitated, attempted to scratch nurses- will benefit from psych eval * depending on disposition may need another CoVID testing case discussed and evaluated by supervising physician Subjective ROS Limited/Unobtainable: No Constitutional: Reports: fatigue Gastrointestinal/Abdominal: Reports: no symptoms Psychiatric: Reports: no symptoms Skin: Reports: no symptoms Musculoskeletal: Reports: no symptoms Allergies: Coded Allergies: PENICILLINS (Verified Allergy, Unknown, 01/30/17) hives 01/30/17: ITCHING WITH ZOSYN Subjective on O2 via NC pulse ox stable, no fevers since 06/26 CXR 06/27 noted, CXR for this am pending MELANIA-CoV-2 by PCR 06/22 + detected remains in isolation CRP trending down Objective Last 24 Hour Vital Signs Date Time Temp Pulse Resp B/P (MAP) Pulse Ox O2 Delivery O2 Flow Rate FiO2 07/01/19 08:30 75 116/56 07/01/19 08:00 97.6 75 18 116/56 (76) 94 07/01/19 04:00 97.4 77 18 124/70 (88) 95 07/01/19 00:00 98.0 78 18 121/63 (82) 95 06/30/19 21:00 Nasal Cannula 2.0 06/30/19 20:00 97.9 73 22 152/68 (96) 94 06/30/19 16:00 97.6 72 20 124/59 (80) 95 06/30/19 12:00 97.3 79 20 147/78 (101) 95 06/30/19 09:00 Nasal Cannula 2.0 Intake and Output 06/30/19 07/01/19 19:00 07:00 Intake Total 590 ml 55 ml Balance 590 ml 55 ml Intake Oral 480 ml IV Total 110 ml 55 ml Objective General Appearance: no acute distress Moldovan speaking female ,anxious, easily frustrated HEENT: normocephalic, atraumatic, anicteric, mucous membranes moist, PERRL Respiratory/Chest: few isolated rhinoceri, no respiratory distress, no accessory muscle use Cardiovascular: normal rate, regular rhythm, no JVD Abdomen: normal bowel sounds, soft, non tender, non distended Extremities: no edema, pedal pulses normal, AV fistula + bruit/thrill 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: alert, responsive Musculoskeletal: normal muscle bulk Laboratory Tests 07/01/19 05:22: White Blood Count 3.7L, Red Blood Count 4.45, Hemoglobin 11.7L, Hematocrit 37.6 , Mean Corpuscular Volume 85, Mean Corpuscular Hemoglobin 26.4L, Mean Corpuscular Hemoglobin Concent 31.2L, Red Cell Distribution Width 16.6H, Platelet Count 242#, Mean Platelet Volume 8.1, Neutrophils (%) (Auto) 74.9, Lymphocytes (%) (Auto) 10.9L, Monocytes (%) (Auto) 10.0, Eosinophils (%) (Auto) 3.3H, Basophils (%) (Auto) 0.9, Sodium Level 140, Potassium Level 3.8, Chloride Level 97L, Carbon Dioxide Level 33H, Anion Gap 10, Blood Urea Nitrogen 30H, Creatinine 6.5H, Estimat Glomerular Filtration Rate 7.0, Glucose Level 87, Calcium Level 9.6, Phosphorus Level 4.5, Total Bilirubin 0.7, Aspartate Amino Transf (AST/SGOT) 27, Alanine Aminotransferase (ALT/SGPT) 14, Alkaline Phosphatase 92, C-Reactive Protein, Quantitative 20.5H, Pro-B-Type Natriuretic Peptide > 58192V, Total Protein 8.1, Albumin 2.7L, Globulin 5.4, Albumin/ Globulin Ratio 0.5L, Random Vancomycin Level 8.9 Current Medications Medications (Trade) Dose Ordered Sig/Sarah Route PRN Reason Start Time Stop Time Status Last Admin Dose Admin Acetaminophen (Tylenol) 650 mg Q4H PRN ORAL Temp >100.5 / mild pain 1-3 06/23/19 23:00 07/23/19 22:59 06/27/19 08:17 Albuterol Sulfate (Proventil MDI) 2 puff Q4H PRN INH Shortness of Breath 06/23/19 23:00 09/21/19 22:59 Albuterol/ Ipratropium (Combivent Respimat) 1 puff Q6HRT INH 06/24/19 01:00 07/24/19 00:59 06/30/19 12:35 Amlodipine Besylate (Norvasc) 2.5 mg DAILY ORAL 07/01/19 09:00 07/31/19 08:59 07/01/19 08:30 Aztreonam 0.25 gm/ Dextrose 55 ml @ 110 mls/hr Q12H IVPB 06/25/19 05:00 07/02/19 04:59 07/01/19 05:05 Clonidine HCl (Catapres Tab) 0.1 mg Q4H PRN ORAL BP over 160 systolic 06/23/19 15:00 09/21/19 14:59 Guaifenesin/ Dextromethorphan (Robitussin DM Syrup) 10 ml Q4H PRN ORAL For Cough 06/23/19 23:00 09/21/19 22:59 06/27/19 20:42 Heparin Sodium (Porcine) (Heparin 5000 units/ml) 5,000 units EVERY 12 HOURS SUBQ 06/23/19 15:45 08/07/19 15:44 07/01/19 08:31 Loperamide HCl (Imodium) 2 mg TIDPRN PRN ORAL Diarrhea 06/25/19 12:45 07/25/19 12:44 06/29/19 14:00 Pantoprazole (Protonix) 40 mg BID ORAL 06/23/19 18:00 07/23/19 17:59 07/01/19 08:30 Sevelamer Carbonate (Renvela) 1,600 mg THREE TIMES A DAY NG 06/25/19 13:00 09/22/19 12:59 07/01/19 08:30 Vancomycin HCl (Vanco rx to dose) 1 ea DAILY PRN MISC Per rx protocol 06/24/19 15:15 07/24/19 15:14 Vancomycin HCl 500 mg/Dextrose 110 ml @ 110 mls/hr ONCE IVPB 07/01/19 09:00 07/01/19 12:00 07/01/19 08:32 Allan Morales MD 07/03/19 1154: Assessment/Plan Assessment/Plan Patient seen and examined with WEATHERIZATION COORDINATOR, agree with above A&P as it reflects our joint deliberations. Subjective Allergies: Coded Allergies: PENICILLINS (Verified Allergy, Unknown, 01/30/17) hives 01/30/17: ITCHING WITH Catherine Barlow WEATHERIZATION COORDINATOR Jul 01, 2019 08:52 Allan Morales MD July 03, 2019 11:54
[2019-07-01] MEDS ORDERED: Vancomycin 500mg/D5W 110ml IVPB SCH ×2 (09:00)
[2019-07-01 09:13] LABS: ALANINE AMINOTRANSFERASE 14 U/L (12-78); ALBUMIN 2.7 G/DL (3.4-5.0); ALKALINE PHOSPHATASE 91 U/L (46-116); ASPARTATE AMINO TRANSFERASE 28 U/L (15-37); BILIRUBIN,DIRECT 0.2 MG/DL (0.0-0.3); BILIRUBIN,TOTAL 0.7 MG/DL (0.2-1.0)
--- NOTE | 2019-07-01 10:37 | Diagnostic Imaging Report ---
Indication: Shortness of breath and cough Technique: One view of the chest Comparison: 06/28/2019 Findings: Allowing for differences in exposure technique, bilateral interstitial and airspace opacities are stable or perhaps minimally improved on the left. The heart remains borderline enlarged. Left axillary surgical clips are again noted. Impression: Bilateral infiltrates, overall stable versus perhaps slightly improved on the left, over 3 days
[2019-07-01 12:00] VITALS: BP 117/60
--- NOTE | 2019-07-01 12:39 | Hematology/Onc Progress Note ---
Assessment/Plan Assessment/Plan # Leukopenia on admission - with likely infection, bilateral pulmonary edema with increased in brain natriuretic peptide most likely a component of end- stage renal disease and chronic heart failure with preserved ejection fraction. --> hepatitis and hiv neg --> imaging reviewed, abd us from 3 years ago negative --> smear is noted --> meds have been reviewed --> neupogen sq as needed prn --> wbc trend 3.7-->6.6-->3.1->3.7 # Anemia likely due to End-stage renal disease --> very mild currently, hgb 12 # COVID-19, bilateral pneumonia. --> as per Id, Dr. Arnett on case --> iso, and droplet iso # History of hypertension, controlled with hydralazine --> per cards # Sepsis --> start vancomycin with azactam pending blood culture # ESRD (end stage renal disease) on dialysis --> continue hemodialysis --> renally dosed antibiotics # DM II (diabetes mellitus, type II), controlled --> recommend tight glycemic control to keep blood glucose between [id number] # Dvt ppx heparin sq Appreciate consultation and effie rn Subjective Constitutional: Denies: no symptoms, chills, fever, malaise, weakness, other HEENT: Denies: no symptoms, eye pain, blurred vision, tearing, double vision, ear pain, ear discharge, nose pain, nose congestion, throat pain, throat swelling, mouth pain, mouth swelling, other Cardiovascular: Denies: no symptoms, chest pain, edema, irregular heart rate, lightheadedness, palpitations, syncope, other Gastrointestinal/Abdominal: Denies: no symptoms, abdomen distended, abdominal pain, black stools, tarry stools, blood in stool, constipated, diarrhea, difficulty swallowing, nausea, poor appetite, poor fluid intake, rectal bleeding , vomiting, other Genitourinary: Denies: no symptoms, burning, discharge, frequency, flank pain, hematuria, incontinence, pain, urgency, other 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: Denies: no symptoms, anxiety, depressed, emotional problems, headache, numbness, paresthesia, pre-existing deficit, seizure, tingling, tremors, weakness, other Endocrine: Denies: no symptoms, excessive sweating, flushing, intolerance to cold, intolerance to heat, increased hunger, increased thirst, increased urine, unexplained weight gain, unexplained weight loss, other Allergies: Coded Allergies: PENICILLINS (Verified Allergy, Unknown, 01/30/17) hives 01/30/17: ITCHING WITH ZOSYN Subjective 06/27 mauritanian speaking, to get hd, labs yesterday looked better, cbc has been ordered 06/28 tolerated hd well, no bleeding, labs noted, no night sweats 06/29 to get hd today, no bleeding, meds now, labs reviewed 06/30 no complaints, no bleeding, no night sweats Objective Objective Current Medications Medications (Trade) Dose Ordered Sig/Sarah Route PRN Reason Start Time Stop Time Status Last Admin Dose Admin Acetaminophen (Tylenol) 650 mg Q4H PRN ORAL Temp >100.5 / mild pain 1-3 06/23/19 23:00 07/23/19 22:59 06/27/19 08:17 Albuterol Sulfate (Proventil MDI) 2 puff Q4H PRN INH Shortness of Breath 06/23/19 23:00 09/21/19 22:59 Albuterol/ Ipratropium (Combivent Respimat) 1 puff Q6HRT INH 06/24/19 01:00 07/24/19 00:59 06/30/19 12:35 Amlodipine Besylate (Norvasc) 2.5 mg DAILY ORAL 07/01/19 09:00 07/31/19 08:59 07/01/19 08:30 Aztreonam 0.25 gm/ Dextrose 55 ml @ 110 mls/hr Q12H IVPB 06/25/19 05:00 07/03/19 04:59 07/01/19 05:05 Clonidine HCl (Catapres Tab) 0.1 mg Q4H PRN ORAL BP over 160 systolic 06/23/19 15:00 09/21/19 14:59 Guaifenesin/ Dextromethorphan (Robitussin DM Syrup) 10 ml Q4H PRN ORAL For Cough 06/23/19 23:00 09/21/19 22:59 06/27/19 20:42 Heparin Sodium (Porcine) (Heparin 5000 units/ml) 5,000 units EVERY 12 HOURS SUBQ 06/23/19 15:45 08/07/19 15:44 07/01/19 08:31 Loperamide HCl (Imodium) 2 mg TIDPRN PRN ORAL Diarrhea 06/25/19 12:45 07/25/19 12:44 06/29/19 14:00 Pantoprazole (Protonix) 40 mg BID ORAL 06/23/19 18:00 07/23/19 17:59 07/01/19 08:30 Sevelamer Carbonate (Renvela) 1,600 mg THREE TIMES A DAY NG 06/25/19 13:00 09/22/19 12:59 07/01/19 08:30 Vancomycin HCl (Vanco rx to dose) 1 ea DAILY PRN MISC Per rx protocol 06/24/19 15:15 07/24/19 15:14 Last 24 Hour Vital Signs Date Time Temp Pulse Resp B/P (MAP) Pulse Ox O2 Delivery O2 Flow Rate FiO2 07/01/19 12:00 97.7 73 18 117/60 (79) 97 07/01/19 09:00 Nasal Cannula 2.0 07/01/19 08:30 75 116/56 07/01/19 08:00 97.6 75 18 116/56 (76) 94 07/01/19 04:00 97.4 77 18 124/70 (88) 95 07/01/19 00:00 98.0 78 18 121/63 (82) 95 06/30/19 21:00 Nasal Cannula 2.0 06/30/19 20:00 97.9 73 22 152/68 (96) 94 06/30/19 16:00 97.6 72 20 124/59 (80) 95 06/30/19 12:00 97.3 79 20 147/78 (101) 95 06/30/19 09:00 Nasal Cannula 2.0 06/30/19 08:00 98.4 93 20 134/71 (92) 94 06/30/19 04:00 97.9 68 16 126/65 (85) 93 06/30/19 00:00 98.2 74 18 121/60 (80) 93 06/29/19 21:00 Nasal Cannula 2.0 06/29/19 20:00 98.2 72 17 118/64 (82) 92 06/29/19 16:00 97.5 81 19 117/54 (75) 100 Intake and Output 4/29/20 4/30/20 19:00 07:00 Intake Total 590 ml 55 ml Balance 590 ml 55 ml Intake Oral 480 ml IV Total 110 ml 55 ml Labs Test 06/29/19 03:50 06/30/19 04:50 07/01/19 05:22 White Blood Count 5.7 K/UL (4.8-10.8) 3.1 K/UL (4.8-10.8) 3.7 K/UL (4.8-10.8) Red Blood Count 4.50 M/UL (4.20-5.40) 4.32 M/UL (4.20-5.40) 4.45 M/UL (4.20-5.40) Hemoglobin 11.8 G/DL (12.0-16.0) 11.3 G/DL (12.0-16.0) 11.7 G/DL (12.0-16.0) Hematocrit 38.1 % (37.0-47.0) 36.3 % (37.0-47.0) 37.6 % (37.0-47.0) Mean Corpuscular Volume 85 FL (80-99) 84 FL (80-99) 85 FL (80-99) Mean Corpuscular Hemoglobin 26.3 PG (27.0-31.0) 26.3 PG (27.0-31.0) 26.4 PG (27.0-31.0) Mean Corpuscular Hemoglobin Concent 31.1 G/DL (32.0-36.0) 31.2 G/DL (32.0-36.0) 31.2 G/DL (32.0-36.0) Red Cell Distribution Width 16.8 % (11.6-14.8) 16.9 % (11.6-14.8) 16.6 % (11.6-14.8) Platelet Count 208 K/UL (150-450) 160 K/UL (150-450) 242 K/UL (150-450) Mean Platelet Volume 8.5 FL (6.5-10.1) 7.3 FL (6.5-10.1) 8.1 FL (6.5-10.1) Neutrophils (%) (Auto) % (45.0-75.0) % (45.0-75.0) 74.9 % (45.0-75.0) Lymphocytes (%) (Auto) % (20.0-45.0) % (20.0-45.0) 10.9 % (20.0-45.0) Monocytes (%) (Auto) % (1.0-10.0) % (1.0-10.0) 10.0 % (1.0-10.0) Eosinophils (%) (Auto) % (0.0-3.0) % (0.0-3.0) 3.3 % (0.0-3.0) Basophils (%) (Auto) % (0.0-2.0) % (0.0-2.0) 0.9 % (0.0-2.0) Differential Total Cells Counted 100 Neutrophils % (Manual) 88 % (45-75) Lymphocytes % (Manual) 6 % (20-45) Monocytes % (Manual) 6 % (1-10) Eosinophils % (Manual) 0 % (0-3) Basophils % (Manual) 0 % (0-2) Band Neutrophils 0 % (0-8) Platelet Estimate Adequate Platelet Morphology Normal Red Blood Cell Morphology Normal Sodium Level 140 MMOL/L (136-145) 140 MMOL/L (136-145) Potassium Level 5.0 MMOL/L (3.5-5.1) 3.8 MMOL/L (3.5-5.1) Chloride Level 97 MMOL/L (98-107) 97 MMOL/L (98-107) Carbon Dioxide Level 30 MMOL/L (21-32) 33 MMOL/L (21-32) Anion Gap 13 mmol/L (5-15) 10 mmol/L (5-15) Blood Urea Nitrogen 24 mg/dL (7-18) 30 mg/dL (7-18) Creatinine 6.7 MG/DL (0.55-1.30) 6.5 MG/DL (0.55-1.30) Estimat Glomerular Filtration Rate 6.7 mL/min (>60) 7.0 mL/min (>60) Glucose Level 81 MG/DL (74-106) 87 MG/DL (74-106) Calcium Level 10.0 MG/DL (8.5-10.1) 9.6 MG/DL (8.5-10.1) Phosphorus Level 3.6 MG/DL (2.5-4.9) 4.5 MG/DL (2.5-4.9) Total Bilirubin 0.9 MG/DL (0.2-1.0) 0.7 MG/DL (0.2-1.0) Aspartate Amino Transf (AST/SGOT) 37 U/L (15-37) 28 U/L (15-37) Alanine Aminotransferase (ALT/SGPT) 21 U/L (12-78) 14 U/L (12-78) Alkaline Phosphatase 98 U/L (46-116) 91 U/L (46-116) C-Reactive Protein, Quantitative 50.3 mg/dL (0.00-0.90) 20.5 mg/dL (0.00-0.90) Total Protein 8.6 G/DL (6.4-8.2) 8.1 G/DL (6.4-8.2) Albumin 2.5 G/DL (3.4-5.0) 2.7 G/DL (3.4-5.0) Globulin 6.1 g/dL 5.4 g/dL Random Vancomycin Level 26.4 ug/mL 8.9 ug/mL Direct Bilirubin 0.2 MG/DL (0.0-0.3) Pro-B-Type Natriuretic Peptide > 00360 pg/mL (0-125) Albumin/Globulin Ratio 0.5 (1.0-2.7) Height (Feet): 4 Height (Inches): 10.00 Weight (Pounds): 102 Objective Gen: nad, A+O x4 Puilm: ctab, no cwr CV: rrr, no mg Abd: soft, nt, nd Ext: no cce, right upper ext fistula++ Ray Lopez MD Jul 01, 2019 12:39
--- NOTE | 2019-07-01 13:21 | Nephrology Progress Note ---
Assessment/Plan Problem List: (1) Pneumonia (2) COVID-19 Assessment: CRP and LDH are elevated-ferritin and d-dimer are not elevated (3) ESRD (end stage renal disease) on dialysis (4) HTN (hypertension) Assessment COVID-19 infection/pneumonia End-stage renal disease on hemodialysis 3 times a week Hypertension Diabetes mellitus Plan management per ID Hemodialysis next July 01 Keep the blood pressure in check, Renal diet Subjective ROS Limited/Unobtainable: No Constitutional: Reports: malaise Objective Objective Last 24 Hour Vital Signs Date Time Temp Pulse Resp B/P (MAP) Pulse Ox O2 Delivery O2 Flow Rate FiO2 07/01/19 12:00 97.7 73 18 117/60 (79) 97 07/01/19 09:00 Nasal Cannula 2.0 07/01/19 08:30 75 116/56 07/01/19 08:00 97.6 75 18 116/56 (76) 94 07/01/19 04:00 97.4 77 18 124/70 (88) 95 07/01/19 00:00 98.0 78 18 121/63 (82) 95 06/30/19 21:00 Nasal Cannula 2.0 06/30/19 20:00 97.9 73 22 152/68 (96) 94 06/30/19 16:00 97.6 72 20 124/59 (80) 95 Intake and Output 06/30/19 07/01/19 19:00 07:00 Intake Total 590 ml 55 ml Balance 590 ml 55 ml Intake Oral 480 ml IV Total 110 ml 55 ml Current Medications Medications (Trade) Dose Ordered Sig/Sarah Route PRN Reason Start Time Stop Time Status Last Admin Dose Admin Acetaminophen (Tylenol) 650 mg Q4H PRN ORAL Temp >100.5 / mild pain 1-3 06/23/19 23:00 07/23/19 22:59 06/27/19 08:17 Albuterol Sulfate (Proventil MDI) 2 puff Q4H PRN INH Shortness of Breath 06/23/19 23:00 09/21/19 22:59 Albuterol/ Ipratropium (Combivent Respimat) 1 puff Q6HRT INH 06/24/19 01:00 07/24/19 00:59 06/30/19 12:35 Amlodipine Besylate (Norvasc) 2.5 mg DAILY ORAL 4/30/20 09:00 07/31/19 08:59 07/01/19 08:30 Aztreonam 0.25 gm/ Dextrose 55 ml @ 110 mls/hr Q12H IVPB 06/25/19 05:00 07/03/19 04:59 07/01/19 05:05 Clonidine HCl (Catapres Tab) 0.1 mg Q4H PRN ORAL BP over 160 systolic 06/23/19 15:00 09/21/19 14:59 Guaifenesin/ Dextromethorphan (Robitussin DM Syrup) 10 ml Q4H PRN ORAL For Cough 06/23/19 23:00 09/21/19 22:59 06/27/19 20:42 Heparin Sodium (Porcine) (Heparin 5000 units/ml) 5,000 units EVERY 12 HOURS SUBQ 06/23/19 15:45 08/07/19 15:44 07/01/19 08:31 Loperamide HCl (Imodium) 2 mg TIDPRN PRN ORAL Diarrhea 06/25/19 12:45 07/25/19 12:44 06/29/19 14:00 Pantoprazole (Protonix) 40 mg BID ORAL 06/23/19 18:00 07/23/19 17:59 07/01/19 08:30 Sevelamer Carbonate (Renvela) 1,600 mg THREE TIMES A DAY NG 06/25/19 13:00 09/22/19 12:59 07/01/19 13:14 Vancomycin HCl (Vanco rx to dose) 1 ea DAILY PRN MISC Per rx protocol 06/24/19 15:15 07/24/19 15:14 Laboratory Tests 07/01/19 05:22: White Blood Count 3.7L, Red Blood Count 4.45, Hemoglobin 11.7L, Hematocrit 37.6 , Mean Corpuscular Volume 85, Mean Corpuscular Hemoglobin 26.4L, Mean Corpuscular Hemoglobin Concent 31.2L, Red Cell Distribution Width 16.6H, Platelet Count 242#, Mean Platelet Volume 8.1, Neutrophils (%) (Auto) 74.9, Lymphocytes (%) (Auto) 10.9L, Monocytes (%) (Auto) 10.0, Eosinophils (%) (Auto) 3.3H, Basophils (%) (Auto) 0.9, Sodium Level 140, Potassium Level 3.8, Chloride Level 97L, Carbon Dioxide Level 33H, Anion Gap 10, Blood Urea Nitrogen 30H, Creatinine 6.5H, Estimat Glomerular Filtration Rate 7.0, Glucose Level 87, Calcium Level 9.6, Phosphorus Level 4.5, Total Bilirubin 0.7, Direct Bilirubin 0.2, Aspartate Amino Transf (AST/SGOT) 28, Alanine Aminotransferase (ALT/SGPT) 14, Alkaline Phosphatase 91, C-Reactive Protein, Quantitative 20.5H, Pro-B-Type Natriuretic Peptide > 49979F, Total Protein 8.1, Albumin 2.7L, Globulin 5.4, Albumin/Globulin Ratio 0.5L, Random Vancomycin Level 8.9 Height (Feet): 4 Height (Inches): 10.00 Weight (Pounds): 102 General Appearance: no apparent distress Cardiovascular: normal rate Respiratory/Chest: rhonchi - bilaterally - rare Abdomen: soft Objective No change Rufus Mo MD Jul 01, 2019 13:21
--- NOTE | 2019-07-01 14:07 | NUR ---
NURSE NOTES: Patient scheduled for Hemodialysis for 07/02/2019; I called [facility] and spoke to Lloyd regarding the scheduled Hemodialysis; waiting for Hemodialysis to call back;
--- NOTE | 2019-07-01 15:02 | Infectious Diseases Prog Note ---
Assessment/Plan Problems: (1) PNA (pneumonia) Assessment & Plan: superimposed with COVID 19 infection, continue vancomycin and aztreonam empirically, monitor chest x-ray. Keep in enhanced droplet isolation (2) COVID-19 Assessment & Plan: tested positive with EDI COORDINATOR PCR test , continue hydroxychloroquine with zinc and vitamin C for five days total . keep an enhanced droplet isolation. MONITOR ferritin, LDH, and D dimer (3) Fever Assessment & Plan: suspect due to the above , IMPROVING , continue Tylenol and wide spectrum antibiotics (4) Sepsis Assessment & Plan: due to the above start vancomycin with azactam pending blood culture (5) ESRD (end stage renal disease) on dialysis Assessment & Plan: continue hemodialysis and renally dosed antibiotics as per pharmacy (6) DM II (diabetes mellitus, type II), controlled Assessment & Plan: recommend tight glycemic control to keep blood glucose between [id number] Subjective Constitutional: Reports: fatigue HEENT: Reports: no symptoms Respiratory: Reports: dry cough Breasts: Reports: no symptoms Cardiovascular: Reports: no symptoms Gastrointestinal/Abdominal: Reports: no symptoms Genitourinary: Reports: no symptoms Neurologic: Reports: no symptoms Psychiatric: Reports: no symptoms Skin: Reports: no symptoms Endocrine: Reports: no symptoms Hematologic: Reports: no symptoms Musculoskeletal: Reports: no symptoms Allergies: Coded Allergies: PENICILLINS (Verified Allergy, Unknown, 01/30/17) hives 01/30/17: ITCHING WITH ZOSYN Objective Vital Signs Last 24 Hour Vital Signs Date Time Temp Pulse Resp B/P (MAP) Pulse Ox O2 Delivery O2 Flow Rate FiO2 07/01/19 12:00 97.7 73 18 117/60 (79) 97 07/01/19 09:00 Nasal Cannula 2.0 07/01/19 08:30 75 116/56 07/01/19 08:00 97.6 75 18 116/56 (76) 94 07/01/19 04:00 97.4 77 18 124/70 (88) 95 07/01/19 00:00 98.0 78 18 121/63 (82) 95 06/30/19 21:00 Nasal Cannula 2.0 06/30/19 20:00 97.9 73 22 152/68 (96) 94 06/30/19 16:00 97.6 72 20 124/59 (80) 95 Height (Feet): 4 Height (Inches): 10.00 Weight (Pounds): 102 General Appearance: WD/WN, no acute distress HEENT: normocephalic, atraumatic, anicteric, mucous membranes moist, PERRL Respiratory/Chest: chest wall non-tender, no respiratory distress, no accessory muscle use, decreased breath sounds, crackles/rales Cardiovascular: normal peripheral pulses, normal rate, regular rhythm, no gallop/murmur, no JVD Abdomen: normal bowel sounds, soft, non tender, no organomegaly, non distended , no mass, no scars Genitourinary: normal external genitalia Extremities: no cyanosis, no clubbing Skin: no rash, no lesions, no ulcers 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: therapy manager II-XII grossly normal, alert, oriented x 3, responsive Lymphatic: no neck adenopathy, no groin adenopathy Musculoskeletal: normal muscle bulk, no effusion Laboratory Tests Test 07/01/19 05:22 White Blood Count 3.7 K/UL (4.8-10.8) L Red Blood Count 4.45 M/UL (4.20-5.40) Hemoglobin 11.7 G/DL (12.0-16.0) L Hematocrit 37.6 % (37.0-47.0) Mean Corpuscular Volume 85 FL (80-99) Mean Corpuscular Hemoglobin 26.4 PG (27.0-31.0) L Mean Corpuscular Hemoglobin Concent 31.2 G/DL (32.0-36.0) L Red Cell Distribution Width 16.6 % (11.6-14.8) H Platelet Count 242 K/UL (150-450) # Mean Platelet Volume 8.1 FL (6.5-10.1) Neutrophils (%) (Auto) 74.9 % (45.0-75.0) Lymphocytes (%) (Auto) 10.9 % (20.0-45.0) L Monocytes (%) (Auto) 10.0 % (1.0-10.0) Eosinophils (%) (Auto) 3.3 % (0.0-3.0) H Basophils (%) (Auto) 0.9 % (0.0-2.0) Sodium Level 140 MMOL/L (136-145) Potassium Level 3.8 MMOL/L (3.5-5.1) Chloride Level 97 MMOL/L (98-107) L Carbon Dioxide Level 33 MMOL/L (21-32) H Anion Gap 10 mmol/L (5-15) Blood Urea Nitrogen 30 mg/dL (7-18) H Creatinine 6.5 MG/DL (0.55-1.30) H Estimat Glomerular Filtration Rate 7.0 mL/min (>60) Glucose Level 87 MG/DL (74-106) Calcium Level 9.6 MG/DL (8.5-10.1) Phosphorus Level 4.5 MG/DL (2.5-4.9) Total Bilirubin 0.7 MG/DL (0.2-1.0) Direct Bilirubin 0.2 MG/DL (0.0-0.3) Aspartate Amino Transf (AST/SGOT) 28 U/L (15-37) Alanine Aminotransferase (ALT/SGPT) 14 U/L (12-78) Alkaline Phosphatase 91 U/L (46-116) C-Reactive Protein, Quantitative 20.5 mg/dL (0.00-0.90) H Pro-B-Type Natriuretic Peptide > 10213 pg/mL (0-125) H Total Protein 8.1 G/DL (6.4-8.2) Albumin 2.7 G/DL (3.4-5.0) L Globulin 5.4 g/dL Albumin/Globulin Ratio 0.5 (1.0-2.7) L Random Vancomycin Level 8.9 ug/mL Current Medications Medications (Trade) Dose Ordered Sig/Sarah Route PRN Reason Start Time Stop Time Status Last Admin Dose Admin Acetaminophen (Tylenol) 650 mg Q4H PRN ORAL Temp >100.5 / mild pain 1-3 06/23/19 23:00 07/23/19 22:59 06/27/19 08:17 Albuterol Sulfate (Proventil MDI) 2 puff Q4H PRN INH Shortness of Breath 06/23/19 23:00 09/21/19 22:59 Albuterol/ Ipratropium (Combivent Respimat) 1 puff Q6HRT INH 06/24/19 01:00 07/24/19 00:59 06/30/19 12:35 Amlodipine Besylate (Norvasc) 2.5 mg DAILY ORAL 07/01/19 09:00 07/31/19 08:59 07/01/19 08:30 Aztreonam 0.25 gm/ Dextrose 55 ml @ 110 mls/hr Q12H IVPB 06/25/19 05:00 07/03/19 04:59 07/01/19 05:05 Clonidine HCl (Catapres Tab) 0.1 mg Q4H PRN ORAL BP over 160 systolic 06/23/19 15:00 09/21/19 14:59 Guaifenesin/ Dextromethorphan (Robitussin DM Syrup) 10 ml Q4H PRN ORAL For Cough 06/23/19 23:00 09/21/19 22:59 06/27/19 20:42 Heparin Sodium (Porcine) (Heparin 5000 units/ml) 5,000 units EVERY 12 HOURS SUBQ 06/23/19 15:45 08/07/19 15:44 07/01/19 08:31 Loperamide HCl (Imodium) 2 mg TIDPRN PRN ORAL Diarrhea 06/25/19 12:45 07/25/19 12:44 06/29/19 14:00 Pantoprazole (Protonix) 40 mg BID ORAL 06/23/19 18:00 07/23/19 17:59 07/01/19 08:30 Sevelamer Carbonate (Renvela) 1,600 mg THREE TIMES A DAY NG 06/25/19 13:00 09/22/19 12:59 07/01/19 13:14 Vancomycin HCl (Vanco rx to dose) 1 ea DAILY PRN MISC Per rx protocol 06/24/19 15:15 07/24/19 15:14 Shahab Arnett M.D. Jul 01, 2019 15:02
--- NOTE | 2019-07-01 15:49 | NUR ---
*-* INSURANCE *-* ALL AVAILABLE CLINICALS HAVE BEEN FAXED TO: [employer] P: [phone] F: [phone] &- ALISA IRVIN:BRITTANY REF# [id number] P: [phone] F: [phone]
--- NOTE | 2019-07-01 15:51 | NUR ---
CASE MANAGEMENT:REVIEW SI;COVID-19+ PNA HYPOXEMIC RESPIRATORY FAILURE. ESRD ON HD. 98.0 77 18 116/56 94% 2L NC WBC 3.7 CL 97 CO2 33 CRP 20.5 BNP >78251 ALB 2.7 IS;NORVASC PO QD AZTREONAM IV Q12 HRS COMBIVENT ING Q6 HRS ROBITUSSIN PO Q4 HRS PRN PROVENTIL INH Q6 HRS PRN FOR SOB PROTONIX PO BID HEPARIN SUBQ Q12 HRS MED SURG STATUS DCP;FROM HOME
[2019-07-01 16:00] VITALS: BP 113/63
--- NOTE | 2019-07-01 19:05 | Cardiology Progress Note ---
Assessment/Plan Assessment/Plan 1. Bilateral pulmonary edema with increased in brain natriuretic peptide most likely a component of end-stage renal disease and chronic heart failure with preserved ejection fraction. 2. End-stage renal disease. 3. COVID-19, bilateral pneumonia. 4. Hypertension, well controlled, continue low dose amlodipine. 5. Diabetes mellitus. Continue aspirin and statins. Subjective Subjective Transferred to the med-surg unit. Objective Last 24 Hour Vital Signs Date Time Temp Pulse Resp B/P (MAP) Pulse Ox O2 Delivery O2 Flow Rate FiO2 07/01/19 16:00 97.7 76 18 113/63 (80) 97 07/01/19 12:00 97.7 73 18 117/60 (79) 97 07/01/19 09:00 Nasal Cannula 2.0 07/01/19 08:30 75 116/56 07/01/19 08:00 97.6 75 18 116/56 (76) 94 07/01/19 04:00 97.4 77 18 124/70 (88) 95 07/01/19 00:00 98.0 78 18 121/63 (82) 95 06/30/19 21:00 Nasal Cannula 2.0 06/30/19 20:00 97.9 73 22 152/68 (96) 94 Intake and Output 06/30/19 07/01/19 19:00 07:00 Intake Total 590 ml 55 ml Balance 590 ml 55 ml Intake Oral 480 ml IV Total 110 ml 55 ml Laboratory Tests Test 07/01/19 05:22 White Blood Count 3.7 K/UL (4.8-10.8) L Red Blood Count 4.45 M/UL (4.20-5.40) Hemoglobin 11.7 G/DL (12.0-16.0) L Hematocrit 37.6 % (37.0-47.0) Mean Corpuscular Volume 85 FL (80-99) Mean Corpuscular Hemoglobin 26.4 PG (27.0-31.0) L Mean Corpuscular Hemoglobin Concent 31.2 G/DL (32.0-36.0) L Red Cell Distribution Width 16.6 % (11.6-14.8) H Platelet Count 242 K/UL (150-450) # Mean Platelet Volume 8.1 FL (6.5-10.1) Neutrophils (%) (Auto) 74.9 % (45.0-75.0) Lymphocytes (%) (Auto) 10.9 % (20.0-45.0) L Monocytes (%) (Auto) 10.0 % (1.0-10.0) Eosinophils (%) (Auto) 3.3 % (0.0-3.0) H Basophils (%) (Auto) 0.9 % (0.0-2.0) Sodium Level 140 MMOL/L (136-145) Potassium Level 3.8 MMOL/L (3.5-5.1) Chloride Level 97 MMOL/L (98-107) L Carbon Dioxide Level 33 MMOL/L (21-32) H Anion Gap 10 mmol/L (5-15) Blood Urea Nitrogen 30 mg/dL (7-18) H Creatinine 6.5 MG/DL (0.55-1.30) H Estimat Glomerular Filtration Rate 7.0 mL/min (>60) Glucose Level 87 MG/DL (74-106) Calcium Level 9.6 MG/DL (8.5-10.1) Phosphorus Level 4.5 MG/DL (2.5-4.9) Total Bilirubin 0.7 MG/DL (0.2-1.0) Direct Bilirubin 0.2 MG/DL (0.0-0.3) Aspartate Amino Transf (AST/SGOT) 28 U/L (15-37) Alanine Aminotransferase (ALT/SGPT) 14 U/L (12-78) Alkaline Phosphatase 91 U/L (46-116) C-Reactive Protein, Quantitative 20.5 mg/dL (0.00-0.90) H Pro-B-Type Natriuretic Peptide > 21219 pg/mL (0-125) H Total Protein 8.1 G/DL (6.4-8.2) Albumin 2.7 G/DL (3.4-5.0) L Globulin 5.4 g/dL Albumin/Globulin Ratio 0.5 (1.0-2.7) L Random Vancomycin Level 8.9 ug/mL Objective HEENT: Atraumatic and normocephalic. Anicteric. Pupils are equal, round, reactive to light and accommodation. Extraocular muscles intact. NECK: JVP less than 5 cm. No carotid bruit. Carotid upstroke is 2+ bilaterally. CVS: Normal S1, S2. Regular rate and rhythm. No murmurs, gallops, or rubs. PMI is at fourth intercostal space at the midclavicular line. LUNGS: Diminished breath sounds in both lungs with bibasilar crackles. ABDOMEN: Soft, nontender, nondistended. No hepatosplenomegaly. Positive bowel sounds. EXTREMITIES: No evidence of edema, clubbing, or cyanosis. Param No MD Jul 01, 2019 19:05
--- NOTE | 2019-07-01 19:23 | NUR ---
HAND-OFF: Report given to NITHIN Edwards.
--- NOTE | 2019-07-01 19:30 | NUR ---
NURSE NOTES: Received patient in no apparent distress. A&OX4. NC 2L on. IV site patent and intact. AV shunt on right upper arm, bruit and thrill present. Bed in lowest position. Call light within reach. Will continue to monitor.
[2019-07-01 20:00] VITALS: BP 125/68
[2019-07-02] VITALS: BP 128/72
[2019-07-02 04:00] VITALS: BP 140/74
[2019-07-02] MEDS: Aztreonam Inj 0.25 GM in D5W 55 ML IVPB SCH ×2 (05:09→17:11)
--- NOTE | 2019-07-02 07:02 | Hematology/Onc Progress Note ---
Assessment/Plan Assessment/Plan # Leukopenia on admission - with likely infection, bilateral pulmonary edema with increased in brain natriuretic peptide most likely a component of end- stage renal disease and chronic heart failure with preserved ejection fraction. --> hepatitis and hiv neg --> imaging reviewed, abd us from 3 years ago negative --> smear is noted --> meds have been reviewed --> neupogen sq as needed prn --> wbc trend 3.7-->6.6-->3.1->3.7 # Anemia likely due to End-stage renal disease --> very mild currently, hgb 12 # COVID-19, bilateral pneumonia. --> as per Id, Dr. Arnett on case --> iso, and droplet iso # History of hypertension, controlled with hydralazine --> per cards # Sepsis --> start vancomycin with azactam pending blood culture # ESRD (end stage renal disease) on dialysis --> continue hemodialysis --> renally dosed antibiotics # DM II (diabetes mellitus, type II), controlled --> recommend tight glycemic control to keep blood glucose between [id number] # Dvt ppx heparin sq Appreciate consultation and effie rn Subjective HEENT: Denies: no symptoms, eye pain, blurred vision, tearing, double vision, ear pain, ear discharge, nose pain, nose congestion, throat pain, throat swelling, mouth pain, mouth swelling, other Cardiovascular: Denies: no symptoms, chest pain, edema, irregular heart rate, lightheadedness, palpitations, syncope, other Respiratory: Denies: no symptoms, cough, shortness of breath, SOB with excertion, SOB at rest, sputum, wheezing, other Gastrointestinal/Abdominal: Denies: no symptoms, abdomen distended, abdominal pain, black stools, tarry stools, blood in stool, constipated, diarrhea, difficulty swallowing, nausea, poor appetite, poor fluid intake, rectal bleeding , vomiting, other Genitourinary: Denies: no symptoms, burning, discharge, frequency, flank pain, hematuria, incontinence, pain, urgency, other 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: Denies: no symptoms, anxiety, depressed, emotional problems, headache, numbness, paresthesia, pre-existing deficit, seizure, tingling, tremors, weakness, other Endocrine: Denies: no symptoms, excessive sweating, flushing, intolerance to cold, intolerance to heat, increased hunger, increased thirst, increased urine, unexplained weight gain, unexplained weight loss, other Hematologic/Lymphatic: Denies: no symptoms, anemia, easy bleeding, easy bruising, adenopathy, other Allergies: Coded Allergies: PENICILLINS (Verified Allergy, Unknown, 01/30/17) hives 01/30/17: ITCHING WITH ZOSYN Subjective 06/27 lao speaking, to get hd, labs yesterday looked better, cbc has been ordered 06/28 tolerated hd well, no bleeding, labs noted, no night sweats 06/29 to get hd today, no bleeding, meds now, labs reviewed 06/30 no complaints, no bleeding, no night sweats 07/01 labs reviewed, no night sweats, meds reviewed, smear is noted Objective Objective Current Medications Medications (Trade) Dose Ordered Sig/Sarah Route PRN Reason Start Time Stop Time Status Last Admin Dose Admin Acetaminophen (Tylenol) 650 mg Q4H PRN ORAL Temp >100.5 / mild pain 1-3 06/23/19 23:00 07/23/19 22:59 06/27/19 08:17 Albuterol Sulfate (Proventil MDI) 2 puff Q4H PRN INH Shortness of Breath 06/23/19 23:00 09/21/19 22:59 Albuterol/ Ipratropium (Combivent Respimat) 1 puff Q6HRT INH 06/24/19 01:00 07/24/19 00:59 07/02/19 06:24 Amlodipine Besylate (Norvasc) 2.5 mg DAILY ORAL 07/01/19 09:00 07/31/19 08:59 07/01/19 08:30 Aztreonam 0.25 gm/ Dextrose 55 ml @ 110 mls/hr Q12H IVPB 06/25/19 05:00 07/03/19 04:59 07/02/19 05:09 Clonidine HCl (Catapres Tab) 0.1 mg Q4H PRN ORAL BP over 160 systolic 06/23/19 15:00 09/21/19 14:59 Guaifenesin/ Dextromethorphan (Robitussin DM Syrup) 10 ml Q4H PRN ORAL For Cough 06/23/19 23:00 09/21/19 22:59 06/27/19 20:42 Heparin Sodium (Porcine) (Heparin 5000 units/ml) 5,000 units EVERY 12 HOURS SUBQ 06/23/19 15:45 08/07/19 15:44 07/01/19 20:46 Loperamide HCl (Imodium) 2 mg TIDPRN PRN ORAL Diarrhea 06/25/19 12:45 07/25/19 12:44 06/29/19 14:00 Pantoprazole (Protonix) 40 mg BID ORAL 06/23/19 18:00 07/23/19 17:59 07/01/19 17:43 Sevelamer Carbonate (Renvela) 1,600 mg THREE TIMES A DAY NG 06/25/19 13:00 09/22/19 12:59 07/01/19 17:43 Vancomycin HCl (Vanco rx to dose) 1 ea DAILY PRN MISC Per rx protocol 06/24/19 15:15 07/24/19 15:14 Last 24 Hour Vital Signs Date Time Temp Pulse Resp B/P (MAP) Pulse Ox O2 Delivery O2 Flow Rate FiO2 07/02/19 04:00 97.6 60 19 140/74 (96) 98 07/02/19 00:00 98.2 74 19 128/72 (90) 96 07/01/19 21:00 Nasal Cannula 2.0 07/01/19 20:00 98.6 70 19 125/68 (87) 97 07/01/19 16:00 97.7 76 18 113/63 (80) 97 07/01/19 12:00 97.7 73 18 117/60 (79) 97 07/01/19 09:00 Nasal Cannula 2.0 07/01/19 08:30 75 116/56 07/01/19 08:00 97.6 75 18 116/56 (76) 94 07/01/19 04:00 97.4 77 18 124/70 (88) 95 07/01/19 00:00 98.0 78 18 121/63 (82) 95 06/30/19 21:00 Nasal Cannula 2.0 06/30/19 20:00 97.9 73 22 152/68 (96) 94 06/30/19 16:00 97.6 72 20 124/59 (80) 95 06/30/19 12:00 97.3 79 20 147/78 (101) 95 06/30/19 09:00 Nasal Cannula 2.0 06/30/19 08:00 98.4 93 20 134/71 (92) 94 Intake and Output 07/01/19 07/02/19 19:00 07:00 Intake Total 830 ml Balance 830 ml Intake Oral 720 ml IV Total 110 ml # Voids 2 Labs Test 06/30/19 04:50 07/01/19 05:22 White Blood Count 3.1 K/UL (4.8-10.8) 3.7 K/UL (4.8-10.8) Red Blood Count 4.32 M/UL (4.20-5.40) 4.45 M/UL (4.20-5.40) Hemoglobin 11.3 G/DL (12.0-16.0) 11.7 G/DL (12.0-16.0) Hematocrit 36.3 % (37.0-47.0) 37.6 % (37.0-47.0) Mean Corpuscular Volume 84 FL (80-99) 85 FL (80-99) Mean Corpuscular Hemoglobin 26.3 PG (27.0-31.0) 26.4 PG (27.0-31.0) Mean Corpuscular Hemoglobin Concent 31.2 G/DL (32.0-36.0) 31.2 G/DL (32.0-36.0) Red Cell Distribution Width 16.9 % (11.6-14.8) 16.6 % (11.6-14.8) Platelet Count 160 K/UL (150-450) 242 K/UL (150-450) Mean Platelet Volume 7.3 FL (6.5-10.1) 8.1 FL (6.5-10.1) Neutrophils (%) (Auto) % (45.0-75.0) 74.9 % (45.0-75.0) Lymphocytes (%) (Auto) % (20.0-45.0) 10.9 % (20.0-45.0) Monocytes (%) (Auto) % (1.0-10.0) 10.0 % (1.0-10.0) Eosinophils (%) (Auto) % (0.0-3.0) 3.3 % (0.0-3.0) Basophils (%) (Auto) % (0.0-2.0) 0.9 % (0.0-2.0) Sodium Level 140 MMOL/L (136-145) Potassium Level 3.8 MMOL/L (3.5-5.1) Chloride Level 97 MMOL/L (98-107) Carbon Dioxide Level 33 MMOL/L (21-32) Anion Gap 10 mmol/L (5-15) Blood Urea Nitrogen 30 mg/dL (7-18) Creatinine 6.5 MG/DL (0.55-1.30) Estimat Glomerular Filtration Rate 7.0 mL/min (>60) Glucose Level 87 MG/DL (74-106) Calcium Level 9.6 MG/DL (8.5-10.1) Phosphorus Level 4.5 MG/DL (2.5-4.9) Total Bilirubin 0.7 MG/DL (0.2-1.0) Direct Bilirubin 0.2 MG/DL (0.0-0.3) Aspartate Amino Transf (AST/SGOT) 28 U/L (15-37) Alanine Aminotransferase (ALT/SGPT) 14 U/L (12-78) Alkaline Phosphatase 91 U/L (46-116) C-Reactive Protein, Quantitative 20.5 mg/dL (0.00-0.90) Pro-B-Type Natriuretic Peptide > 47931 pg/mL (0-125) Total Protein 8.1 G/DL (6.4-8.2) Albumin 2.7 G/DL (3.4-5.0) Globulin 5.4 g/dL Albumin/Globulin Ratio 0.5 (1.0-2.7) Random Vancomycin Level 8.9 ug/mL Height (Feet): 4 Height (Inches): 10.00 Weight (Pounds): 106 Objective Gen: nad, A+O x4 Puilm: ctab, no cwr CV: rrr, no mg Abd: soft, nt, nd Ext: no cce, right upper ext fistula++ Ray Lopez MD July 02, 2019 07:02
--- NOTE | 2019-07-02 07:30 | NUR ---
HAND-OFF: Report given to Dalton WELLER.
--- NOTE | 2019-07-02 07:30 | NUR ---
NURSE NOTES: Received patient in bed. Awake, A/O x4. On 2 lpm via NC. [place]ib[place]ian speaking. Patient denies pain at this time. Dialysis shunt in the right upper arm, site is intact. IV site in the Left hand, site intact. Patient denies pain at this time. Bed low and locked, call light within reach.
[2019-07-02 08:00] VITALS: BP 136/56
[2019-07-02] MEDS: Renvela 800mg Pkt NG SCH ×3 (08:29→17:12)
--- NOTE | 2019-07-02 08:35 | Pulmonology Progress Note ---
Catherine Bryan GARLAND MAKER 07/02/19 0835: Assessment/Plan Assessment/Plan Problem List: * confirmed COVID-19 acute respiratory illness * bilateral PNA, probably HCAP due to CoVID * Mild transaminitis * ESRD on HD * E/lyte imbalance * HTN * Psychiatric disorder Plan: [facility] floor Close monitoring of respiratory status and oxygen needs * ID follow, abx as per ID;Vanco and Aztreonam, * completed Plaquenil 06/28 x 5 days - per ID recs * BCX 06/22 and 06/23 NGTD * SARS-CoV-2 by PCR 06/22 detected, on isolation (prior COVID infection was also confirmed by family) * CXR 06/24 - with bilateral mixed interstitial and airspace disease, slightly worse * CXR 06/27 - Mostly stable left-sided infiltrates, increasing right lung infiltrates, likely pneumonia, * CXR 06/30 -Bilateral infiltrates, overall stable versus perhaps slightly improved on the left, over 3 days * SCX if able * MDR with spacer prn * O2 titrate to keep sat above 90% * A/tussive prn * Monitor volumes, HD per renal * trend CRP, ferritin; , LDH : last CRP 20.5( trending down), ferritin 302 , LDH 440 * Check D dimer-1.27; * Monitor blood pressure, on Hydralazine currently * DVT prophylaxis * monitor volumes, HD as per nephro with close monitoring of renal parameters and lytes * more calm and cooperative * depending on disposition may need another CoVID testing case discussed and evaluated by supervising physician Subjective ROS Limited/Unobtainable: No Constitutional: Reports: fatigue Gastrointestinal/Abdominal: Reports: no symptoms Psychiatric: Reports: no symptoms Skin: Reports: no symptoms Musculoskeletal: Reports: no symptoms Allergies: Coded Allergies: PENICILLINS (Verified Allergy, Unknown, 01/30/17) hives 01/30/17: ITCHING WITH ZOSYN Subjective on O2 via NC pulse ox stable, no fevers since 06/26 CXR 06/30 noted, stable MELANIA-CoV-2 by PCR 06/22 + detected remains in isolation CRP trending down more compliant with treatment Objective Last 24 Hour Vital Signs Date Time Temp Pulse Resp B/P (MAP) Pulse Ox O2 Delivery O2 Flow Rate FiO2 07/02/19 04:00 97.6 60 19 140/74 (96) 98 07/02/19 00:00 98.2 74 19 128/72 (90) 96 07/01/19 21:00 Nasal Cannula 2.0 07/01/19 20:00 98.6 70 19 125/68 (87) 97 07/01/19 16:00 97.7 76 18 113/63 (80) 97 07/01/19 12:00 97.7 73 18 117/60 (79) 97 07/01/19 09:00 Nasal Cannula 2.0 Intake and Output 07/01/19 07/02/19 19:00 07:00 Intake Total 830 ml 55 ml Balance 830 ml 55 ml Intake Oral 720 ml IV Total 110 ml 55 ml # Voids 2 Objective General Appearance: no acute distress Bahamian speaking female ,anxious, easily frustrated HEENT: normocephalic, atraumatic, anicteric, mucous membranes moist, PERRL Respiratory/Chest: few isolated rhinoceri, no respiratory distress, no accessory muscle use Cardiovascular: normal rate, regular rhythm, no JVD Abdomen: normal bowel sounds, soft, non tender, non distended Extremities: no edema, pedal pulses normal, AV fistula + bruit/thrill 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: alert, responsive Musculoskeletal: normal muscle bulk Current Medications Medications (Trade) Dose Ordered Sig/Sarah Route PRN Reason Start Time Stop Time Status Last Admin Dose Admin Acetaminophen (Tylenol) 650 mg Q4H PRN ORAL Temp >100.5 / mild pain 1-3 06/23/19 23:00 07/23/19 22:59 06/27/19 08:17 Albuterol Sulfate (Proventil MDI) 2 puff Q4H PRN INH Shortness of Breath 06/23/19 23:00 09/21/19 22:59 Albuterol/ Ipratropium (Combivent Respimat) 1 puff Q6HRT INH 06/24/19 01:00 07/24/19 00:59 07/02/19 06:24 Amlodipine Besylate (Norvasc) 2.5 mg DAILY ORAL 07/01/19 09:00 07/31/19 08:59 07/01/19 08:30 Aztreonam 0.25 gm/ Dextrose 55 ml @ 110 mls/hr Q12H IVPB 06/25/19 05:00 07/03/19 04:59 07/02/19 05:09 Clonidine HCl (Catapres Tab) 0.1 mg Q4H PRN ORAL BP over 160 systolic 06/23/19 15:00 09/21/19 14:59 Guaifenesin/ Dextromethorphan (Robitussin DM Syrup) 10 ml Q4H PRN ORAL For Cough 06/23/19 23:00 09/21/19 22:59 06/27/19 20:42 Heparin Sodium (Porcine) (Heparin 5000 units/ml) 5,000 units EVERY 12 HOURS SUBQ 06/23/19 15:45 08/07/19 15:44 07/01/19 20:46 Loperamide HCl (Imodium) 2 mg TIDPRN PRN ORAL Diarrhea 06/25/19 12:45 07/25/19 12:44 06/29/19 14:00 Pantoprazole (Protonix) 40 mg BID ORAL 06/23/19 18:00 07/23/19 17:59 07/01/19 17:43 Sevelamer Carbonate (Renvela) 1,600 mg THREE TIMES A DAY NG 06/25/19 13:00 09/22/19 12:59 07/01/19 17:43 Vancomycin HCl (Vanco rx to dose) 1 ea DAILY PRN MISC Per rx protocol 06/24/19 15:15 07/24/19 15:14 Allan Morales MD 07/03/19 1155: Assessment/Plan Assessment/Plan Patient seen and examined with GARLAND [employer]KER, agree with above A&P as it reflects our joint deliberations. Subjective Allergies: Coded Allergies: PENICILLINS (Verified Allergy, Unknown, 01/30/17) hives 01/30/17: ITCHING WITH Catherine Barlow GARLAND MAKER July 02, 2019 08:35 Allan Morales MD July 03, 2019 11:55
[2019-07-02] MEDS: Heparin 5000 units/ml inj SUBQ SCH ×2 (09:00→20:07)
--- NOTE | 2019-07-02 09:00 | NUR ---
NURSE NOTES: PO BP med and subcut Heparin on hold prior to HD today.
--- NOTE | 2019-07-02 11:39 | NUR ---
RD ASSESSMENT & RECOMMENDATIONS SEE CARE ACTIVITY FOR COMPLETE ASSESSMENT DAILY ESTIMATED NEEDS: Needs based on ESRD on HD, 49kg 30-35 kcals/kg 5077-5286 total kcals 1.2-1.8 g protein/kg 59-88 g total protein Fluid per MD, on HD NUTRITION DIAGNOSIS: Increased kcal and protein needs R/T renal dysfunction as evidenced by pt w/ ESRD on HD w/ elev BUN, Cr. PO DIET RECOMMENDATIONS: maintain Renal diet ADDITIONAL RECOMMENDATIONS: 1) High protein snacks BID + nepro qdaily 2) Maintain calibrated bed scale wts daily 3) Bowel regimen, monitor for bm (last 3 days ago, rec to dc imodium) . .
--- NOTE | 2019-07-02 11:41 | NUR ---
HEAD BOOKKEEPER NOTE PER DR JEFFERSON, PATIENT WILL REQUIRE INPATIENT HOSPITALIZATION FOR MINIMUM 2 WEEKS AND ID CLEARANCE BEFORE PATIENT CAN DC HOME AND CONTINUE ADDITIONAL 2 WEEK HOME ISOLATION.
[2019-07-02 12:00] VITALS: BP 131/62
--- NOTE | 2019-07-02 12:21 | Nephrology Progress Note ---
Assessment/Plan Problem List: (1) Pneumonia (2) COVID-19 Assessment: CRP and LDH are elevated-ferritin and d-dimer are not elevated (3) ESRD (end stage renal disease) on dialysis (4) HTN (hypertension) Assessment COVID-19 infection/pneumonia End-stage renal disease on hemodialysis 3 times a week Hypertension Diabetes mellitus Plan management per ID Hemodialysis next July 01 Keep the blood pressure in check, Renal diet Subjective ROS Limited/Unobtainable: No Constitutional: Reports: malaise Objective Objective Last 24 Hour Vital Signs Date Time Temp Pulse Resp B/P (MAP) Pulse Ox O2 Delivery O2 Flow Rate FiO2 07/02/19 09:00 Nasal Cannula 2.0 07/02/19 08:00 97.9 74 17 136/56 (82) 96 07/02/19 04:00 97.6 60 19 140/74 (96) 98 07/02/19 00:00 98.2 74 19 128/72 (90) 96 07/01/19 21:00 Nasal Cannula 2.0 07/01/19 20:00 98.6 70 19 125/68 (87) 97 07/01/19 16:00 97.7 76 18 113/63 (80) 97 Intake and Output 07/01/19 07/02/19 19:00 07:00 Intake Total 830 ml 55 ml Balance 830 ml 55 ml Intake Oral 720 ml IV Total 110 ml 55 ml # Voids 2 Current Medications Medications (Trade) Dose Ordered Sig/Sarah Route PRN Reason Start Time Stop Time Status Last Admin Dose Admin Acetaminophen (Tylenol) 650 mg Q4H PRN ORAL Temp >100.5 / mild pain 1-3 06/23/19 23:00 07/23/19 22:59 06/27/19 08:17 Albuterol Sulfate (Proventil MDI) 2 puff Q4H PRN INH Shortness of Breath 06/23/19 23:00 09/21/19 22:59 Albuterol/ Ipratropium (Combivent Respimat) 1 puff Q6HRT INH 06/24/19 01:00 07/24/19 00:59 07/02/19 12:17 Amlodipine Besylate (Norvasc) 2.5 mg DAILY ORAL 07/01/19 09:00 07/31/19 08:59 07/01/19 08:30 Aztreonam 0.25 gm/ Dextrose 55 ml @ 110 mls/hr Q12H IVPB 06/25/19 05:00 07/03/19 04:59 07/02/19 05:09 Clonidine HCl (Catapres Tab) 0.1 mg Q4H PRN ORAL BP over 160 systolic 06/23/19 15:00 09/21/19 14:59 Guaifenesin/ Dextromethorphan (Robitussin DM Syrup) 10 ml Q4H PRN ORAL For Cough 06/23/19 23:00 09/21/19 22:59 06/27/19 20:42 Heparin Sodium (Porcine) (Heparin 5000 units/ml) 5,000 units EVERY 12 HOURS SUBQ 06/23/19 15:45 08/07/19 15:44 07/01/19 20:46 Loperamide HCl (Imodium) 2 mg TIDPRN PRN ORAL Diarrhea 06/25/19 12:45 07/25/19 12:44 06/29/19 14:00 Pantoprazole (Protonix) 40 mg BID ORAL 06/23/19 18:00 07/23/19 17:59 07/02/19 08:29 Sevelamer Carbonate (Renvela) 1,600 mg THREE TIMES A DAY NG 06/25/19 13:00 09/22/19 12:59 07/02/19 12:16 Vancomycin HCl (Vanco rx to dose) 1 ea DAILY PRN MISC Per rx protocol 06/24/19 15:15 07/24/19 15:14 No labs drawn today Height (Feet): 4 Height (Inches): 10.00 Weight (Pounds): 106 General Appearance: no apparent distress Cardiovascular: normal rate Respiratory/Chest: decreased breath sounds Abdomen: soft Objective No change Rufus Mo MD July 02, 2019 12:21
--- NOTE | 2019-07-02 14:19 | NUR ---
*-* INSURANCE *-* ALL AVAILABLE CLINICALS HAVE BEEN FAXED TO: [facility] P: [phone] F: [phone] &- ALISA KENTM:BRITTANY REF# [id number] P: [phone] F: [phone] Addendum: 07/07/19 at 1418 by DANIEL DIAZ CM AUTHORIZED FROM 06/22-07/13/19 PER ALISA
--- NOTE | 2019-07-02 14:42 | NUR ---
CASE MANAGEMENT:REVIEW SI;COVID-19+ PNA HYPOXEMIC RESPIRATORY FAILURE. ESRD ON HD. 98.6 74 19 140/74 96% 2L NC IS;NORVASC PO QD AZTREONAM IV Q12 HRS COMBIVENT ING Q6 HRS ROBITUSSIN PO Q4 HRS PRN PROVENTIL INH Q6 HRS PRN FOR SOB PROTONIX PO BID HEPARIN SUBQ Q12 HRS MED SURG STATUS DCP; FROM HOME PLAN;CONT CONTACT/DROPLET ISOLATION CONT INPATIENT FOR NOW
[2019-07-02 16:00] VITALS: BP 144/65
--- NOTE | 2019-07-02 19:05 | NUR ---
HAND-OFF: Report given to Manuel WELLER.
[2019-07-02 20:00] VITALS: BP 132/69
--- NOTE | 2019-07-02 20:00 | NUR ---
NURSE NOTES: Patient in bed, on room air at this time, no SOB noted. No complaint of pain. Dialysis nurse spoke with charge nurse that patient will be dialyzed tomorrow not tonight. Patient was informed, too. Per dialysis nurse, Dr. Mo aware. Call light in reach. Safety measures rendered. Will continue plan of care.
--- NOTE | 2019-07-02 22:14 | Infectious Diseases Prog Note ---
Assessment/Plan Problems: (1) PNA (pneumonia) Assessment & Plan: superimposed with COVID 19 infection, continue vancomycin and aztreonam empirically, monitor chest x-ray. Keep in enhanced droplet isolation for now (2) COVID-19 Assessment & Plan: tested positive with [facility] PATIENTS PCR test , continue hydroxychloroquine with zinc and vitamin C for five days total . keep an enhanced droplet isolation. MONITOR ferritin, LDH, and D dimer (3) Fever Assessment & Plan: suspect due to the above , IMPROVING , continue Tylenol and wide spectrum antibiotics (4) Sepsis Assessment & Plan: due to the above continue vancomycin with azactam to cover for pneumonia, blood culture x 2 is negative (5) ESRD (end stage renal disease) on dialysis Assessment & Plan: continue hemodialysis and renally dosed antibiotics as per pharmacy (6) DM II (diabetes mellitus, type II), controlled Assessment & Plan: recommend tight glycemic control to keep blood glucose between [id number] Subjective Constitutional: Reports: fatigue HEENT: Reports: no symptoms Respiratory: Reports: no symptoms, dry cough Breasts: Reports: no symptoms Cardiovascular: Reports: no symptoms Gastrointestinal/Abdominal: Reports: no symptoms Genitourinary: Reports: no symptoms Neurologic: Reports: weakness Psychiatric: Reports: no symptoms Skin: Reports: no symptoms Endocrine: Reports: no symptoms Hematologic: Reports: no symptoms Musculoskeletal: Reports: no symptoms Allergies: Coded Allergies: PENICILLINS (Verified Allergy, Unknown, 01/30/17) hives 01/30/17: ITCHING WITH ZOSYN Objective Vital Signs Last 24 Hour Vital Signs Date Time Temp Pulse Resp B/P (MAP) Pulse Ox O2 Delivery O2 Flow Rate FiO2 07/02/19 20:23 Nasal Cannula 2.0 07/02/19 20:00 98.2 73 19 132/69 (90) 97 07/02/19 16:00 98.0 76 17 144/65 (91) 94 07/02/19 12:00 98.0 67 17 131/62 (85) 96 07/02/19 09:00 Nasal Cannula 2.0 07/02/19 08:00 97.9 74 17 136/56 (82) 96 07/02/19 04:00 97.6 60 19 140/74 (96) 98 07/02/19 00:00 98.2 74 19 128/72 (90) 96 Height (Feet): 4 Height (Inches): 10.00 Weight (Pounds): 106 General Appearance: WD/WN, no acute distress HEENT: normocephalic, atraumatic, anicteric, mucous membranes moist, PERRL Respiratory/Chest: chest wall non-tender, lungs clear, normal breath sounds, no respiratory distress, no accessory muscle use Cardiovascular: normal peripheral pulses, normal rate, regular rhythm, no gallop/murmur, no JVD Abdomen: normal bowel sounds, soft, non tender, no organomegaly, non distended , no mass, no scars Genitourinary: normal external genitalia Extremities: no cyanosis, no clubbing Skin: no rash, no lesions, no ulcers 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: gas dispatcher II-XII grossly normal, no motor/sensory deficits, alert, oriented x 3, responsive Lymphatic: no neck adenopathy, no groin adenopathy Musculoskeletal: normal muscle bulk Current Medications Medications (Trade) Dose Ordered Sig/Sarah Route PRN Reason Start Time Stop Time Status Last Admin Dose Admin Acetaminophen (Tylenol) 650 mg Q4H PRN ORAL Temp >100.5 / mild pain 1-3 06/23/19 23:00 07/23/19 22:59 06/27/19 08:17 Albuterol Sulfate (Proventil MDI) 2 puff Q4H PRN INH Shortness of Breath 06/23/19 23:00 09/21/19 22:59 Albuterol/ Ipratropium (Combivent Respimat) 1 puff Q6HRT INH 06/24/19 01:00 07/24/19 00:59 07/02/19 18:31 Amlodipine Besylate (Norvasc) 2.5 mg DAILY ORAL 07/01/19 09:00 07/31/19 08:59 07/01/19 08:30 Aztreonam 0.25 gm/ Dextrose 55 ml @ 110 mls/hr Q12H IVPB 06/25/19 05:00 07/03/19 04:59 07/02/19 17:11 Clonidine HCl (Catapres Tab) 0.1 mg Q4H PRN ORAL BP over 160 systolic 06/23/19 15:00 09/21/19 14:59 Guaifenesin/ Dextromethorphan (Robitussin DM Syrup) 10 ml Q4H PRN ORAL For Cough 06/23/19 23:00 09/21/19 22:59 06/27/19 20:42 Heparin Sodium (Porcine) (Heparin 5000 units/ml) 5,000 units EVERY 12 HOURS SUBQ 06/23/19 15:45 08/07/19 15:44 07/02/19 20:07 Loperamide HCl (Imodium) 2 mg TIDPRN PRN ORAL Diarrhea 06/25/19 12:45 07/25/19 12:44 06/29/19 14:00 Pantoprazole (Protonix) 40 mg BID ORAL 06/23/19 18:00 07/23/19 17:59 07/02/19 17:12 Sevelamer Carbonate (Renvela) 1,600 mg THREE TIMES A DAY NG 06/25/19 13:00 09/22/19 12:59 07/02/19 17:12 Vancomycin HCl (Vanco rx to dose) 1 ea DAILY PRN MISC Per rx protocol 06/24/19 15:15 07/24/19 15:14 Shahab Arnett M.D. July 02, 2019 22:13
--- NOTE | 2019-07-02 23:59 | Cardiology Progress Note ---
Assessment/Plan Assessment/Plan 1. Bilateral pulmonary edema with increased in brain natriuretic peptide most likely a component of end-stage renal disease and chronic heart failure with preserved ejection fraction. 2. End-stage renal disease. 3. COVID-19, bilateral pneumonia. 4. Hypertension, well controlled, continue low dose amlodipine. 5. Diabetes mellitus. Continue aspirin and statins. Subjective Subjective No cardiac events reported. Objective Last 24 Hour Vital Signs Date Time Temp Pulse Resp B/P (MAP) Pulse Ox O2 Delivery O2 Flow Rate FiO2 07/02/19 20:23 Nasal Cannula 2.0 07/02/19 20:00 98.2 73 19 132/69 (90) 97 07/02/19 16:00 98.0 76 17 144/65 (91) 94 07/02/19 12:00 98.0 67 17 131/62 (85) 96 07/02/19 09:00 Nasal Cannula 2.0 07/02/19 08:00 97.9 74 17 136/56 (82) 96 07/02/19 04:00 97.6 60 19 140/74 (96) 98 07/02/19 00:00 98.2 74 19 128/72 (90) 96 Intake and Output 07/01/19 07/02/19 19:00 07:00 Intake Total 830 ml 55 ml Balance 830 ml 55 ml Intake Oral 720 ml IV Total 110 ml 55 ml # Voids 2 Objective HEENT: Atraumatic and normocephalic. Anicteric. Pupils are equal, round, reactive to light and accommodation. Extraocular muscles intact. NECK: JVP less than 5 cm. No carotid bruit. Carotid upstroke is 2+ bilaterally. CVS: Normal S1, S2. Regular rate and rhythm. No murmurs, gallops, or rubs. PMI is at fourth intercostal space at the midclavicular line. LUNGS: Diminished breath sounds in both lungs with bibasilar crackles. ABDOMEN: Soft, nontender, nondistended. No hepatosplenomegaly. Positive bowel sounds. EXTREMITIES: No evidence of edema, clubbing, or cyanosis. Param No MD July 02, 2019 23:58
[2019-07-03] VITALS: BP 124/64
[2019-07-03 04:00] VITALS: BP 127/59
--- NOTE | 2019-07-03 06:56 | NUR ---
HAND-OFF: Report given to NITHIN Hoffman.
--- NOTE | 2019-07-03 07:00 | NUR ---
NURSE NOTES: Received patient in bed. Awake, A/O x4. On 2 lpm via NC. Patient denies pain at this time. Iv site in the Left hand, site intact. Currently being dialyzed. Bed low and locked, call light within reach.
[2019-07-03 07:26] LABS: PHOSPHORUS 5.6 MG/DL (2.5-4.9)
[2019-07-03 07:30] LABS: ALANINE AMINOTRANSFERASE 15 U/L (12-78); ALBUMIN 2.8 G/DL (3.4-5.0); ALBUMIN/GLOBULIN RATIO 0.6 (1.0-2.7); ALKALINE PHOSPHATASE 103 U/L (46-116); ANION GAP 14 mmol/L (5-15); ASPARTATE AMINO TRANSFERASE 35 U/L (15-37); BILIRUBIN,TOTAL 0.5 MG/DL (0.2-1.0); BLOOD UREA NITROGEN 58 mg/dL (7-18); CALCIUM 9.7 MG/DL (8.5-10.1); CARBON DIOXIDE 29 MMOL/L (21-32); CHLORIDE 94 MMOL/L (98-107); CREATININE 11.7 MG/DL (0.55-1.30); POTASSIUM 4.8 MMOL/L (3.5-5.1); SODIUM 137 MMOL/L (136-145)
[2019-07-03 07:38] LABS: BASOPHILS % (AUTO) 0.6 % (0.0-2.0); EOSINOPHILS % (AUTO) 1.7 % (0.0-3.0); HEMATOCRIT 34.9 % (37.0-47.0); HEMOGLOBIN 11.3 G/DL (12.0-16.0); LYMPHOCYTES % (AUTO) 13.8 % (20.0-45.0); MEAN CORPUSCULAR VOLUME 84 FL (80-99); MONOCYTES % (AUTO) 10.2 % (1.0-10.0); NEUTROPHILS % (AUTO) 73.8 % (45.0-75.0); PLATELET COUNT 238 K/UL (150-450); RED BLOOD COUNT 4.17 M/UL (4.20-5.40); RED CELL DISTRIBUTION WIDTH 16.6 % (11.6-14.8); WHITE BLOOD COUNT 4.3 K/UL (4.8-10.8)
[2019-07-03 08:00] VITALS: BP 134/61
--- NOTE | 2019-07-03 08:30 | NUR ---
NURSE NOTES: HD complete. 1 L removed. VSS.
--- NOTE | 2019-07-03 09:17 | Pulmonology Progress Note ---
Catherine Bryan [employer] 07/03/19 0917: Assessment/Plan Assessment/Plan Problem List: * confirmed COVID-19 acute respiratory illness * bilateral PNA, probably HCAP due to CoVID * Mild transaminitis * ESRD on HD * E/lyte imbalance * HTN * Psychiatric disorder Plan: [facility] floor Close monitoring of respiratory status and oxygen needs * ID follow, abx as per ID;Vanco and Aztreonam, * completed Plaquenil 06/28 x 5 days - per ID recs * BCX 06/22 and 06/23 NGTD * SARS-CoV-2 by PCR 06/22 detected, on isolation (prior COVID infection was also confirmed by family) * CXR 06/24 - with bilateral mixed interstitial and airspace disease, slightly worse * CXR 06/27 - Mostly stable left-sided infiltrates, increasing right lung infiltrates, likely pneumonia, * CXR 06/30 -Bilateral infiltrates, overall stable versus perhaps slightly improved on the left, over 3 days * SCX if able * MDR with spacer prn * O2 titrate to keep sat above 90% * A/tussive prn * Monitor volumes, HD per renal * trend CRP, ferritin; , LDH : last CRP 20.5( trending down), ferritin 302 , LDH 440 * Check D dimer-1.27; * Monitor blood pressure, on Hydralazine currently * DVT prophylaxis * monitor volumes, HD as per nephro with close monitoring of renal parameters and lytes * more calm and cooperative * depending on disposition may need another CoVID testing case discussed and evaluated by supervising physician Subjective ROS Limited/Unobtainable: No Constitutional: Reports: fatigue Gastrointestinal/Abdominal: Reports: no symptoms Psychiatric: Reports: no symptoms Skin: Reports: no symptoms Musculoskeletal: Reports: no symptoms Allergies: Coded Allergies: PENICILLINS (Verified Allergy, Unknown, 01/30/17) hives 01/30/17: ITCHING WITH ZOSYN Subjective on O2 via NC pulse ox stable, no fevers since 06/26 CXR 06/30 noted, stable MELANIA-CoV-2 by PCR 06/22 + detected remains in isolation CRP trending down more compliant with treatment HD now Objective Last 24 Hour Vital Signs Date Time Temp Pulse Resp B/P (MAP) Pulse Ox O2 Delivery O2 Flow Rate FiO2 07/03/19 04:00 97.0 64 17 127/59 (81) 94 07/03/19 00:00 98.0 82 18 124/64 (84) 97 07/02/19 20:23 Nasal Cannula 2.0 07/02/19 20:00 98.2 73 19 132/69 (90) 97 07/02/19 16:00 98.0 76 17 144/65 (91) 94 07/02/19 12:00 98.0 67 17 131/62 (85) 96 Objective General Appearance: no acute distress Danish speaking female ,anxious, HEENT: normocephalic, atraumatic, anicteric, mucous membranes moist, PERRL Respiratory/Chest: few isolated rhinoceri, no respiratory distress, no accessory muscle use Cardiovascular: normal rate, regular rhythm, no JVD Abdomen: normal bowel sounds, soft, non tender, non distended Extremities: no edema, pedal pulses normal, AV fistula now being sued for HD 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: alert, responsive Musculoskeletal: normal muscle bulk Laboratory Tests 07/03/19 03:10: White Blood Count 4.3L, Red Blood Count 4.17L, Hemoglobin 11.3L, Hematocrit 34.9L, Mean Corpuscular Volume 84, Mean Corpuscular Hemoglobin 27.2, Mean Corpuscular Hemoglobin Concent 32.5, Red Cell Distribution Width 16.6H, Platelet Count 238, Mean Platelet Volume 7.3, Neutrophils (%) (Auto) 73.8, Lymphocytes (%) (Auto) 13.8L, Monocytes (%) (Auto) 10.2H, Eosinophils (%) (Auto ) 1.7, Basophils (%) (Auto) 0.6, Sodium Level 137, Potassium Level 4.8, Chloride Level 94L, Carbon Dioxide Level 29, Anion Gap 14, Blood Urea Nitrogen 58H, Creatinine 11.7H, Estimat Glomerular Filtration Rate 3.6, Glucose Level 66L , Calcium Level 9.7, Phosphorus Level 5.6H, Magnesium Level 2.9H, Total Bilirubin 0.5, Aspartate Amino Transf (AST/SGOT) 35, Alanine Aminotransferase ( ALT/SGPT) 15, Alkaline Phosphatase 103, C-Reactive Protein, Quantitative 6.9H, Total Protein 7.8, Albumin 2.8L, Globulin 5.0, Albumin/Globulin Ratio 0.6L, Random Vancomycin Level 23.4 Current Medications Medications (Trade) Dose Ordered Sig/Sarah Route PRN Reason Start Time Stop Time Status Last Admin Dose Admin Acetaminophen (Tylenol) 650 mg Q4H PRN ORAL Temp >100.5 / mild pain 1-3 06/23/19 23:00 07/23/19 22:59 06/27/19 08:17 Albuterol Sulfate (Proventil MDI) 2 puff Q4H PRN INH Shortness of Breath 06/23/19 23:00 09/21/19 22:59 Albuterol/ Ipratropium (Combivent Respimat) 1 puff Q6HRT INH 06/24/19 01:00 07/24/19 00:59 07/03/19 06:14 Amlodipine Besylate (Norvasc) 2.5 mg DAILY ORAL 07/01/19 09:00 07/31/19 08:59 07/01/19 08:30 Clonidine HCl (Catapres Tab) 0.1 mg Q4H PRN ORAL BP over 160 systolic 06/23/19 15:00 09/21/19 14:59 Guaifenesin/ Dextromethorphan (Robitussin DM Syrup) 10 ml Q4H PRN ORAL For Cough 06/23/19 23:00 09/21/19 22:59 06/27/19 20:42 Heparin Sodium (Porcine) (Heparin 5000 units/ml) 5,000 units EVERY 12 HOURS SUBQ 06/23/19 15:45 08/07/19 15:44 07/02/19 20:07 Loperamide HCl (Imodium) 2 mg TIDPRN PRN ORAL Diarrhea 06/25/19 12:45 07/25/19 12:44 06/29/19 14:00 Pantoprazole (Protonix) 40 mg BID ORAL 06/23/19 18:00 07/23/19 17:59 07/02/19 17:12 Sevelamer Carbonate (Renvela) 1,600 mg THREE TIMES A DAY NG 06/25/19 13:00 09/22/19 12:59 07/02/19 17:12 Vancomycin HCl (Vanco rx to dose) 1 ea DAILY PRN MISC Per rx protocol 06/24/19 15:15 07/24/19 15:14 Allan Morales MD 07/03/19 1155: Assessment/Plan Assessment/Plan Patient seen and examined with [employer], agree with above A&P as it reflects our joint deliberations. Subjective Allergies: Coded Allergies: PENICILLINS (Verified Allergy, Unknown, 01/30/17) hives 01/30/17: ITCHING WITH Catherine Barlow NP July 03, 2019 09:17 Allan Morales MD July 03, 2019 11:55
[2019-07-03] MEDS: Renvela 800mg Pkt NG SCH (09:58)
[2019-07-03] MEDS: Heparin 5000 units/ml inj SUBQ SCH ×2 (09:59→21:00)
--- NOTE | 2019-07-03 11:56 | Cardiology Progress Note ---
Assessment/Plan Assessment/Plan 1. Bilateral pulmonary edema with increased in brain natriuretic peptide most likely a component of end-stage renal disease and chronic heart failure with preserved ejection fraction. 2. End-stage renal disease. 3. COVID-19, bilateral pneumonia. 4. Hypertension, well controlled, continue low dose amlodipine. 5. Diabetes mellitus. Continue aspirin and statins. Subjective Subjective No cardiac events reported. Objective Last 24 Hour Vital Signs Date Time Temp Pulse Resp B/P (MAP) Pulse Ox O2 Delivery O2 Flow Rate FiO2 07/03/19 09:58 80 134/61 07/03/19 09:00 Nasal Cannula 2.0 07/03/19 08:00 98.8 80 19 134/61 (85) 97 07/03/19 04:00 97.0 64 17 127/59 (81) 94 07/03/19 00:00 98.0 82 18 124/64 (84) 97 07/02/19 20:23 Nasal Cannula 2.0 07/02/19 20:00 98.2 73 19 132/69 (90) 97 07/02/19 16:00 98.0 76 17 144/65 (91) 94 07/02/19 12:00 98.0 67 17 131/62 (85) 96 Laboratory Tests Test 07/03/19 03:10 White Blood Count 4.3 K/UL (4.8-10.8) L Red Blood Count 4.17 M/UL (4.20-5.40) L Hemoglobin 11.3 G/DL (12.0-16.0) L Hematocrit 34.9 % (37.0-47.0) L Mean Corpuscular Volume 84 FL (80-99) Mean Corpuscular Hemoglobin 27.2 PG (27.0-31.0) Mean Corpuscular Hemoglobin Concent 32.5 G/DL (32.0-36.0) Red Cell Distribution Width 16.6 % (11.6-14.8) H Platelet Count 238 K/UL (150-450) Mean Platelet Volume 7.3 FL (6.5-10.1) Neutrophils (%) (Auto) 73.8 % (45.0-75.0) Lymphocytes (%) (Auto) 13.8 % (20.0-45.0) L Monocytes (%) (Auto) 10.2 % (1.0-10.0) H Eosinophils (%) (Auto) 1.7 % (0.0-3.0) Basophils (%) (Auto) 0.6 % (0.0-2.0) Sodium Level 137 MMOL/L (136-145) Potassium Level 4.8 MMOL/L (3.5-5.1) Chloride Level 94 MMOL/L (98-107) L Carbon Dioxide Level 29 MMOL/L (21-32) Anion Gap 14 mmol/L (5-15) Blood Urea Nitrogen 58 mg/dL (7-18) H Creatinine 11.7 MG/DL (0.55-1.30) H Estimat Glomerular Filtration Rate 3.6 mL/min (>60) Glucose Level 66 MG/DL (74-106) L Calcium Level 9.7 MG/DL (8.5-10.1) Phosphorus Level 5.6 MG/DL (2.5-4.9) H Magnesium Level 2.9 MG/DL (1.8-2.4) H Total Bilirubin 0.5 MG/DL (0.2-1.0) Aspartate Amino Transf (AST/SGOT) 35 U/L (15-37) Alanine Aminotransferase (ALT/SGPT) 15 U/L (12-78) Alkaline Phosphatase 103 U/L (46-116) C-Reactive Protein, Quantitative 6.9 mg/dL (0.00-0.90) H Total Protein 7.8 G/DL (6.4-8.2) Albumin 2.8 G/DL (3.4-5.0) L Globulin 5.0 g/dL Albumin/Globulin Ratio 0.6 (1.0-2.7) L Random Vancomycin Level 23.4 ug/mL Objective HEENT: Atraumatic and normocephalic. Anicteric. Pupils are equal, round, reactive to light and accommodation. Extraocular muscles intact. NECK: JVP less than 5 cm. No carotid bruit. Carotid upstroke is 2+ bilaterally. CVS: Normal S1, S2. Regular rate and rhythm. No murmurs, gallops, or rubs. PMI is at fourth intercostal space at the midclavicular line. LUNGS: Diminished breath sounds in both lungs with bibasilar crackles. ABDOMEN: Soft, nontender, nondistended. No hepatosplenomegaly. Positive bowel sounds. EXTREMITIES: No evidence of edema, clubbing, or cyanosis. Param No MD July 03, 2019 11:56
[2019-07-03 12:00] VITALS: BP 131/63
[2019-07-03] MEDS: Renvela 800mg Pkt ORAL SCH ×2 (13:39→17:20)
--- NOTE | 2019-07-03 14:26 | Nephrology Progress Note ---
Assessment/Plan Problem List: (1) Pneumonia (2) COVID-19 Assessment: CRP and LDH are elevated-ferritin and d-dimer are not elevated (3) ESRD (end stage renal disease) on dialysis (4) HTN (hypertension) Assessment COVID-19 infection/pneumonia End-stage renal disease on hemodialysis 3 times a week Hypertension Diabetes mellitus Plan management per ID Hemodialysis next July 01 next dialysis July 04 Keep the blood pressure in check, Renal diet Subjective ROS Limited/Unobtainable: No Constitutional: Reports: malaise Objective Objective Last 24 Hour Vital Signs Date Time Temp Pulse Resp B/P (MAP) Pulse Ox O2 Delivery O2 Flow Rate FiO2 07/03/19 12:00 98.5 81 12 131/63 (85) 97 07/03/19 09:58 80 134/61 07/03/19 09:00 Nasal Cannula 2.0 07/03/19 08:00 98.8 80 19 134/61 (85) 97 07/03/19 04:00 97.0 64 17 127/59 (81) 94 07/03/19 00:00 98.0 82 18 124/64 (84) 97 07/02/19 20:23 Nasal Cannula 2.0 07/02/19 20:00 98.2 73 19 132/69 (90) 97 07/02/19 16:00 98.0 76 17 144/65 (91) 94 Laboratory Tests 07/03/19 03:10: White Blood Count 4.3L, Red Blood Count 4.17L, Hemoglobin 11.3L, Hematocrit 34.9L, Mean Corpuscular Volume 84, Mean Corpuscular Hemoglobin 27.2, Mean Corpuscular Hemoglobin Concent 32.5, Red Cell Distribution Width 16.6H, Platelet Count 238, Mean Platelet Volume 7.3, Neutrophils (%) (Auto) 73.8, Lymphocytes (%) (Auto) 13.8L, Monocytes (%) (Auto) 10.2H, Eosinophils (%) (Auto ) 1.7, Basophils (%) (Auto) 0.6, Sodium Level 137, Potassium Level 4.8, Chloride Level 94L, Carbon Dioxide Level 29, Anion Gap 14, Blood Urea Nitrogen 58H, Creatinine 11.7H, Estimat Glomerular Filtration Rate 3.6, Glucose Level 66L , Calcium Level 9.7, Phosphorus Level 5.6H, Magnesium Level 2.9H, Total Bilirubin 0.5, Aspartate Amino Transf (AST/SGOT) 35, Alanine Aminotransferase ( ALT/SGPT) 15, Alkaline Phosphatase 103, C-Reactive Protein, Quantitative 6.9H, Total Protein 7.8, Albumin 2.8L, Globulin 5.0, Albumin/Globulin Ratio 0.6L, Random Vancomycin Level 23.4 Height (Feet): 4 Height (Inches): 10.00 Weight (Pounds): 107 General Appearance: no apparent distress Cardiovascular: normal rate Respiratory/Chest: decreased breath sounds Objective No change Rufus Mo MD July 03, 2019 14:26
--- NOTE | 2019-07-03 14:54 | General Progress Note ---
Assessment/Plan Status: stable Assessment/Plan: S: I am feeling better O: appears comfortable. mild sob PHYSICAL EXAMINATION: HEAD AND NECK: Atraumatic and normocephalic. CHEST: Diffuse bronchial breathing sounds. HEART: S1, S2. Regular rate and rhythm. ABDOMEN: Soft. No organomegaly. MUSCULOSKELETAL: Positive for the right lesly with AV graft in place. NEUROLOGY: Awake, alert, oriented x3. LABORATORY DATA: Dated July 01 reviewed Meds: reviewed and reconciled ASSESSMENT: 1. Pneumonia secondary to COVID-19. 2. Hypoxemic respiratory failure. Continue with nasal oxygen. 3. End-stage renal disease, on hemodialysis. 4. Abnormal blood sugar. 5. Hypertension. 6. Hypothyroidism. 7. GI and DVT prophylaxis. PLAN OF CARE: DC Heparin SCD continue Hydroxychloroquine Notes from ID and pulmonary reviewed c/w empirical abx to cover possible superimposed bacterial PNA Subjective Allergies: Coded Allergies: PENICILLINS (Verified Allergy, Unknown, 01/30/17) hives 01/30/17: ITCHING WITH ZOSYN Objective Last 24 Hour Vital Signs Date Time Temp Pulse Resp B/P (MAP) Pulse Ox O2 Delivery O2 Flow Rate FiO2 07/03/19 12:00 98.5 81 12 131/63 (85) 97 07/03/19 09:58 80 134/61 07/03/19 09:00 Nasal Cannula 2.0 07/03/19 08:00 98.8 80 19 134/61 (85) 97 07/03/19 04:00 97.0 64 17 127/59 (81) 94 07/03/19 00:00 98.0 82 18 124/64 (84) 97 07/02/19 20:23 Nasal Cannula 2.0 07/02/19 20:00 98.2 73 19 132/69 (90) 97 07/02/19 16:00 98.0 76 17 144/65 (91) 94 Laboratory Tests 07/03/19 03:10: White Blood Count 4.3L, Red Blood Count 4.17L, Hemoglobin 11.3L, Hematocrit 34.9L, Mean Corpuscular Volume 84, Mean Corpuscular Hemoglobin 27.2, Mean Corpuscular Hemoglobin Concent 32.5, Red Cell Distribution Width 16.6H, Platelet Count 238, Mean Platelet Volume 7.3, Neutrophils (%) (Auto) 73.8, Lymphocytes (%) (Auto) 13.8L, Monocytes (%) (Auto) 10.2H, Eosinophils (%) (Auto ) 1.7, Basophils (%) (Auto) 0.6, Sodium Level 137, Potassium Level 4.8, Chloride Level 94L, Carbon Dioxide Level 29, Anion Gap 14, Blood Urea Nitrogen 58H, Creatinine 11.7H, Estimat Glomerular Filtration Rate 3.6, Glucose Level 66L , Calcium Level 9.7, Phosphorus Level 5.6H, Magnesium Level 2.9H, Total Bilirubin 0.5, Aspartate Amino Transf (AST/SGOT) 35, Alanine Aminotransferase ( ALT/SGPT) 15, Alkaline Phosphatase 103, C-Reactive Protein, Quantitative 6.9H, Total Protein 7.8, Albumin 2.8L, Globulin 5.0, Albumin/Globulin Ratio 0.6L, Random Vancomycin Level 23.4 Height (Feet): 4 Height (Inches): 10.00 Weight (Pounds): 107 Wally Waller MD July 03, 2019 14:54
[2019-07-03 16:00] VITALS: BP 137/81
[2019-07-03] MEDS ORDERED: Renvela 800mg Pkt ORAL SCH (18:00)
--- NOTE | 2019-07-03 19:27 | NUR ---
HAND-OFF: Report given to Yuliet WELLER.
--- NOTE | 2019-07-03 19:52 | NUR ---
NURSE NOTES: Received patient in bed, awake, alert, oriented, Tristanian speaking, no acute distress noted, bathroom privileges. IV site is clean dry and intact. Patient has right upper arm AV shunt. Call light is within reach, bed is lowered, locked, alarm is on, will continue to monitor for comfort and safety.
[2019-07-03 20:00] VITALS: BP 111/98
--- NOTE | 2019-07-03 21:19 | Infectious Diseases Prog Note ---
Assessment/Plan Problems: (1) PNA (pneumonia) Assessment & Plan: superimposed with COVID 19 infection, continue vancomycin and aztreonam empirically for 7-10 days , monitor chest x-ray. Keep in enhanced droplet isolation for now (2) COVID-19 Assessment & Plan: tested positive with CONSERVATION COORDINATOR PCR test , continue hydroxychloroquine with zinc and vitamin C for five days total . keep an enhanced droplet isolation. MONITOR ferritin, LDH, and D dimer (3) Fever Assessment & Plan: suspect due to the above , IMPROVING , continue Tylenol and wide spectrum antibiotics (4) Sepsis Assessment & Plan: due to the above continue vancomycin with azactam to cover for pneumonia, blood culture x 2 is negative (5) ESRD (end stage renal disease) on dialysis Assessment & Plan: continue hemodialysis and renally dosed antibiotics as per pharmacy (6) DM II (diabetes mellitus, type II), controlled Assessment & Plan: recommend tight glycemic control to keep blood glucose between [id number] Subjective Constitutional: Reports: fatigue HEENT: Reports: no symptoms Respiratory: Reports: dry cough Breasts: Reports: no symptoms Cardiovascular: Reports: no symptoms Gastrointestinal/Abdominal: Reports: no symptoms Genitourinary: Reports: no symptoms Neurologic: Reports: weakness Psychiatric: Reports: anxiety Skin: Reports: no symptoms Endocrine: Reports: no symptoms Hematologic: Reports: no symptoms Musculoskeletal: Reports: no symptoms Allergies: Coded Allergies: PENICILLINS (Verified Allergy, Unknown, 01/30/17) hives 01/30/17: ITCHING WITH ZOSYN Objective Vital Signs Last 24 Hour Vital Signs Date Time Temp Pulse Resp B/P (MAP) Pulse Ox O2 Delivery O2 Flow Rate FiO2 07/03/19 16:00 98.0 82 18 137/81 (99) 96 07/03/19 12:00 98.5 81 12 131/63 (85) 97 07/03/19 09:58 80 134/61 07/03/19 09:00 Nasal Cannula 2.0 07/03/19 08:00 98.8 80 19 134/61 (85) 97 07/03/19 04:00 97.0 64 17 127/59 (81) 94 07/03/19 00:00 98.0 82 18 124/64 (84) 97 Height (Feet): 4 Height (Inches): 10.00 Weight (Pounds): 107 General Appearance: WD/WN, no acute distress HEENT: normocephalic, atraumatic, anicteric, mucous membranes moist, PERRL Respiratory/Chest: chest wall non-tender, no respiratory distress, no accessory muscle use, decreased breath sounds, crackles/rales Cardiovascular: normal peripheral pulses, normal rate, regular rhythm, no gallop/murmur, no JVD Abdomen: normal bowel sounds, soft, non tender, no organomegaly, non distended , no mass, no scars Genitourinary: normal external genitalia Extremities: no cyanosis, no clubbing Skin: no rash, no lesions, no ulcers 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: 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 grossly normal, no motor/sensory deficits, alert, oriented x 3, responsive Lymphatic: no neck adenopathy, no groin adenopathy Musculoskeletal: normal muscle bulk, no effusion Laboratory Tests Test 07/03/19 03:10 White Blood Count 4.3 K/UL (4.8-10.8) L Red Blood Count 4.17 M/UL (4.20-5.40) L Hemoglobin 11.3 G/DL (12.0-16.0) L Hematocrit 34.9 % (37.0-47.0) L Mean Corpuscular Volume 84 FL (80-99) Mean Corpuscular Hemoglobin 27.2 PG (27.0-31.0) Mean Corpuscular Hemoglobin Concent 32.5 G/DL (32.0-36.0) Red Cell Distribution Width 16.6 % (11.6-14.8) H Platelet Count 238 K/UL (150-450) Mean Platelet Volume 7.3 FL (6.5-10.1) Neutrophils (%) (Auto) 73.8 % (45.0-75.0) Lymphocytes (%) (Auto) 13.8 % (20.0-45.0) L Monocytes (%) (Auto) 10.2 % (1.0-10.0) H Eosinophils (%) (Auto) 1.7 % (0.0-3.0) Basophils (%) (Auto) 0.6 % (0.0-2.0) Sodium Level 137 MMOL/L (136-145) Potassium Level 4.8 MMOL/L (3.5-5.1) Chloride Level 94 MMOL/L (98-107) L Carbon Dioxide Level 29 MMOL/L (21-32) Anion Gap 14 mmol/L (5-15) Blood Urea Nitrogen 58 mg/dL (7-18) H Creatinine 11.7 MG/DL (0.55-1.30) H Estimat Glomerular Filtration Rate 3.6 mL/min (>60) Glucose Level 66 MG/DL (74-106) L Calcium Level 9.7 MG/DL (8.5-10.1) Phosphorus Level 5.6 MG/DL (2.5-4.9) H Magnesium Level 2.9 MG/DL (1.8-2.4) H Total Bilirubin 0.5 MG/DL (0.2-1.0) Aspartate Amino Transf (AST/SGOT) 35 U/L (15-37) Alanine Aminotransferase (ALT/SGPT) 15 U/L (12-78) Alkaline Phosphatase 103 U/L (46-116) C-Reactive Protein, Quantitative 6.9 mg/dL (0.00-0.90) H Total Protein 7.8 G/DL (6.4-8.2) Albumin 2.8 G/DL (3.4-5.0) L Globulin 5.0 g/dL Albumin/Globulin Ratio 0.6 (1.0-2.7) L Random Vancomycin Level 23.4 ug/mL Current Medications Medications (Trade) Dose Ordered Sig/Sarah Route PRN Reason Start Time Stop Time Status Last Admin Dose Admin Acetaminophen (Tylenol) 650 mg Q4H PRN ORAL Temp >100.5 / mild pain 1-3 06/23/19 23:00 07/23/19 22:59 06/27/19 08:17 Albuterol Sulfate (Proventil MDI) 2 puff Q4H PRN INH Shortness of Breath 06/23/19 23:00 09/21/19 22:59 Albuterol/ Ipratropium (Combivent Respimat) 1 puff Q6HRT INH 06/24/19 01:00 07/24/19 00:59 07/03/19 18:11 Amlodipine Besylate (Norvasc) 2.5 mg DAILY ORAL 07/01/19 09:00 07/31/19 08:59 07/03/19 09:58 Clonidine HCl (Catapres Tab) 0.1 mg Q4H PRN ORAL BP over 160 systolic 06/23/19 15:00 09/21/19 14:59 Guaifenesin/ Dextromethorphan (Robitussin DM Syrup) 10 ml Q4H PRN ORAL For Cough 06/23/19 23:00 09/21/19 22:59 06/27/19 20:42 Heparin Sodium (Porcine) (Heparin 5000 units/ml) 5,000 units EVERY 12 HOURS SUBQ 06/23/19 15:45 08/07/19 15:44 07/03/19 21:00 Loperamide HCl (Imodium) 2 mg TIDPRN PRN ORAL Diarrhea 06/25/19 12:45 07/25/19 12:44 06/29/19 14:00 Pantoprazole (Protonix) 40 mg BID ORAL 06/23/19 18:00 07/23/19 17:59 07/03/19 17:20 Sevelamer Carbonate (Renvela) 1,600 mg THREE TIMES A DAY ORAL 07/03/19 13:39 10/01/19 13:38 07/03/19 17:20 Vancomycin HCl (Vanco rx to dose) 1 ea DAILY PRN MISC Per rx protocol 06/24/19 15:15 07/24/19 15:14 Shahab Arnett M.D. July 03, 2019 21:19
[2019-07-04] VITALS: BP 117/65
[2019-07-04 04:00] VITALS: BP 120/65
[2019-07-04 05:42] LABS: BASOPHILS % (AUTO) 1.5 % (0.0-2.0); EOSINOPHILS % (AUTO) 0.2 % (0.0-3.0); HEMATOCRIT 36.8 % (37.0-47.0); HEMOGLOBIN 11.7 G/DL (12.0-16.0); LYMPHOCYTES % (AUTO) 13.1 % (20.0-45.0); MEAN CORPUSCULAR VOLUME 85 FL (80-99); MONOCYTES % (AUTO) 11.3 % (1.0-10.0); NEUTROPHILS % (AUTO) 73.9 % (45.0-75.0); PLATELET COUNT 250 K/UL (150-450); RED BLOOD COUNT 4.33 M/UL (4.20-5.40); RED CELL DISTRIBUTION WIDTH 16.8 % (11.6-14.8); WHITE BLOOD COUNT 4.6 K/UL (4.8-10.8)
--- NOTE | 2019-07-04 07:22 | NUR ---
HAND-OFF: Report given to Mikaela WELLER.
[2019-07-04 08:00] VITALS: BP 113/53
--- NOTE | 2019-07-04 08:00 | NUR ---
NURSE NOTES: received pt in bed, asleep, no sign of distress noted. Bed locked at lowest position possible, call light within easy reach, siderails up x2. Will continue to monitor pt and follow up with POC.
--- NOTE | 2019-07-04 09:34 | Pulmonology Progress Note ---
Catherine Bryan RN TRAUMA 07/04/19 0934: Assessment/Plan Assessment/Plan Problem List: * confirmed COVID-19 acute respiratory illness * bilateral PNA, probably HCAP due to CoVID * Mild transaminitis * ESRD on HD * E/lyte imbalance * HTN * Psychiatric disorder Plan: [facility] floor Close monitoring of respiratory status and oxygen needs * ID follow, abx as per ID;Vanco and Aztreonam-completed * completed Plaquenil 06/28 x 5 days - per ID recs * BCX 06/22 and 06/23 NGTD * SARS-CoV-2 by PCR 06/22 detected, on isolation (prior COVID infection was also confirmed by family) * CXR 06/24 - with bilateral mixed interstitial and airspace disease, slightly worse * CXR 06/27 - Mostly stable left-sided infiltrates, increasing right lung infiltrates, likely pneumonia, * CXR 06/30 -Bilateral infiltrates, overall stable versus perhaps slightly improved on the left, over 3 days * SCX if able * MDR with spacer prn * O2 titrate to keep sat above 90% * A/tussive prn * Monitor volumes, HD per renal * trend CRP, ferritin; , LDH : last CRP 20.5( trending down), ferritin 302 , LDH 440 * Check D dimer-1.27; * Monitor blood pressure, on Hydralazine currently * DVT prophylaxis * monitor volumes, HD as per nephro with close monitoring of renal parameters and lytes * more calm and cooperative * depending on disposition may need another CoVID testing case discussed and evaluated by supervising physician Subjective ROS Limited/Unobtainable: No Constitutional: Reports: fatigue Gastrointestinal/Abdominal: Reports: no symptoms Psychiatric: Reports: anxiety Skin: Reports: no symptoms Musculoskeletal: Reports: no symptoms Allergies: Coded Allergies: PENICILLINS (Verified Allergy, Unknown, 01/30/17) hives 01/30/17: ITCHING WITH ZOSYN Subjective on O2 via NC pulse ox stable, no fevers since 06/26 CXR 06/30 noted, stable MELANIA-CoV-2 by PCR 06/22 + detected remains in isolation CRP trending down more compliant with treatment last HD 07/02 Objective Last 24 Hour Vital Signs Date Time Temp Pulse Resp B/P (MAP) Pulse Ox O2 Delivery O2 Flow Rate FiO2 07/04/19 08:00 98.0 77 18 113/53 (73) 95 5/3/20 04:00 98.0 78 19 120/65 (83) 99 07/04/19 00:00 98.0 76 19 117/65 (82) 94 07/03/19 21:32 Nasal Cannula 2.0 07/03/19 20:00 98.5 78 19 111/98 (102) 98 07/03/19 16:00 98.0 82 18 137/81 (99) 96 07/03/19 12:00 98.5 81 12 131/63 (85) 97 07/03/19 09:58 80 134/61 Objective General Appearance: no acute distress [place] speaking female ,anxious, HEENT: normocephalic, atraumatic, anicteric, mucous membranes moist, PERRL Respiratory/Chest: few isolated rhinoceri, no respiratory distress, no accessory muscle use Cardiovascular: normal rate, regular rhythm, no JVD Abdomen: normal bowel sounds, soft, non tender, non distended Extremities: no edema, pedal pulses normal, AV fistula + thrill/bruit 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: alert, responsive Musculoskeletal: normal muscle bulk Laboratory Tests 07/04/19 04:00: White Blood Count 4.6L, Red Blood Count 4.33, Hemoglobin 11.7L, Hematocrit 36.8L , Mean Corpuscular Volume 85, Mean Corpuscular Hemoglobin 27.2, Mean Corpuscular Hemoglobin Concent 31.9L, Red Cell Distribution Width 16.8H, Platelet Count 250, Mean Platelet Volume 7.9, Neutrophils (%) (Auto) 73.9, Lymphocytes (%) (Auto) 13.1L, Monocytes (%) (Auto) 11.3H, Eosinophils (%) (Auto ) 0.2, Basophils (%) (Auto) 1.5 Current Medications Medications (Trade) Dose Ordered Sig/Sarah Route PRN Reason Start Time Stop Time Status Last Admin Dose Admin Acetaminophen (Tylenol) 650 mg Q4H PRN ORAL Temp >100.5 / mild pain 1-3 06/23/19 23:00 07/23/19 22:59 06/27/19 08:17 Albuterol Sulfate (Proventil MDI) 2 puff Q4H PRN INH Shortness of Breath 06/23/19 23:00 09/21/19 22:59 Albuterol/ Ipratropium (Combivent Respimat) 1 puff Q6HRT INH 06/24/19 01:00 07/24/19 00:59 07/04/19 06:18 Amlodipine Besylate (Norvasc) 2.5 mg DAILY ORAL 07/01/19 09:00 07/31/19 08:59 07/03/19 09:58 Clonidine HCl (Catapres Tab) 0.1 mg Q4H PRN ORAL BP over 160 systolic 06/23/19 15:00 09/21/19 14:59 Guaifenesin/ Dextromethorphan (Robitussin DM Syrup) 10 ml Q4H PRN ORAL For Cough 06/23/19 23:00 09/21/19 22:59 06/27/19 20:42 Heparin Sodium (Porcine) (Heparin 5000 units/ml) 5,000 units EVERY 12 HOURS SUBQ 06/23/19 15:45 08/07/19 15:44 07/03/19 21:00 Loperamide HCl (Imodium) 2 mg TIDPRN PRN ORAL Diarrhea 06/25/19 12:45 07/25/19 12:44 06/29/19 14:00 Pantoprazole (Protonix) 40 mg BID ORAL 06/23/19 18:00 07/23/19 17:59 07/03/19 17:20 Sevelamer Carbonate (Renvela) 1,600 mg THREE TIMES A DAY ORAL 07/03/19 13:39 10/01/19 13:38 07/03/19 17:20 Vancomycin HCl (Vanco rx to dose) 1 ea DAILY PRN MISC Per rx protocol 06/24/19 15:15 07/24/19 15:14 Allan Morales MD 07/04/19 1818: Assessment/Plan Assessment/Plan Patient seen with RN TRAUMA, agree with above A&P as it reflects our joint deliberations. Subjective Allergies: Coded Allergies: PENICILLINS (Verified Allergy, Unknown, 01/30/17) hives 01/30/17: ITCHING WITH Catherine Barlow RN TRAUMA July 04, 2019 09:34 Allan Morales MD July 04, 2019 18:18
[2019-07-04] MEDS: Renvela 800mg Pkt ORAL SCH ×3 (10:40→17:18)
[2019-07-04] MEDS: Heparin 5000 units/ml inj SUBQ SCH ×2 (10:41→20:53)
--- NOTE | 2019-07-04 10:56 | Nephrology Progress Note ---
Assessment/Plan Problem List: (1) Pneumonia (2) COVID-19 Assessment: CRP and LDH are elevated-ferritin and d-dimer are not elevated (3) ESRD (end stage renal disease) on dialysis (4) HTN (hypertension) Assessment COVID-19 infection/pneumonia End-stage renal disease on hemodialysis 3 times a week Hypertension Diabetes mellitus Plan management per ID Hemodialysis next July 01 next dialysis July 04 Keep the blood pressure in check, Renal diet Subjective ROS Limited/Unobtainable: No Constitutional: Reports: other - Feels better Objective Objective Last 24 Hour Vital Signs Date Time Temp Pulse Resp B/P (MAP) Pulse Ox O2 Delivery O2 Flow Rate FiO2 07/04/19 09:00 77 113/53 07/04/19 08:00 98.0 77 18 113/53 (73) 95 07/04/19 04:00 98.0 78 19 120/65 (83) 99 07/04/19 00:00 98.0 76 19 117/65 (82) 94 07/03/19 21:32 Nasal Cannula 2.0 07/03/19 20:00 98.5 78 19 111/98 (102) 98 07/03/19 16:00 98.0 82 18 137/81 (99) 96 07/03/19 12:00 98.5 81 12 131/63 (85) 97 Laboratory Tests 07/04/19 04:00: White Blood Count 4.6L, Red Blood Count 4.33, Hemoglobin 11.7L, Hematocrit 36.8L , Mean Corpuscular Volume 85, Mean Corpuscular Hemoglobin 27.2, Mean Corpuscular Hemoglobin Concent 31.9L, Red Cell Distribution Width 16.8H, Platelet Count 250, Mean Platelet Volume 7.9, Neutrophils (%) (Auto) 73.9, Lymphocytes (%) (Auto) 13.1L, Monocytes (%) (Auto) 11.3H, Eosinophils (%) (Auto ) 0.2, Basophils (%) (Auto) 1.5 Height (Feet): 4 Height (Inches): 10.00 Weight (Pounds): 107 General Appearance: no apparent distress Objective No change Rufus Mo MD July 04, 2019 10:56
[2019-07-04 12:00] VITALS: BP 115/60
--- NOTE | 2019-07-04 12:10 | NUR ---
NURSE NOTES: contacted [facility] dialysis, spoken to Charles notified pt has HD scheduled for tomorrow.
--- NOTE | 2019-07-04 14:58 | Infectious Diseases Prog Note ---
Assessment/Plan Problems: (1) PNA (pneumonia) Assessment & Plan: superimposed with COVID 19 infection, S/P continue vancomycin and aztreonam empirically for 10 days . may remove from enhanced droplet isolation for now (2) COVID-19 Assessment & Plan: tested positive with [employer] PCR test , S/P hydroxychloroquine with zinc and vitamin C for five days total . may remove from enhanced droplet isolation. (3) Fever Assessment & Plan: suspect due to the above , IMPROVING , continue Tylenol and wide spectrum antibiotics (4) Sepsis Assessment & Plan: due to the above continue vancomycin with azactam to cover for pneumonia, blood culture x 2 is negative (5) ESRD (end stage renal disease) on dialysis Assessment & Plan: continue hemodialysis and renally dosed antibiotics as per pharmacy (6) DM II (diabetes mellitus, type II), controlled Assessment & Plan: recommend tight glycemic control to keep blood glucose between [id number] Subjective Constitutional: Reports: no symptoms HEENT: Reports: no symptoms Respiratory: Reports: no symptoms Breasts: Reports: no symptoms Cardiovascular: Reports: no symptoms Gastrointestinal/Abdominal: Reports: no symptoms Genitourinary: Reports: no symptoms Neurologic: Reports: no symptoms Psychiatric: Reports: no symptoms Skin: Reports: no symptoms Endocrine: Reports: no symptoms Hematologic: Reports: no symptoms Musculoskeletal: Reports: no symptoms Allergies: Coded Allergies: PENICILLINS (Verified Allergy, Unknown, 01/30/17) hives 01/30/17: ITCHING WITH ZOSYN Objective Vital Signs Last 24 Hour Vital Signs Date Time Temp Pulse Resp B/P (MAP) Pulse Ox O2 Delivery O2 Flow Rate FiO2 07/04/19 12:00 97.9 79 17 115/60 (78) 95 07/04/19 09:00 Nasal Cannula 2.0 07/04/19 09:00 77 113/53 07/04/19 08:00 98.0 77 18 113/53 (73) 95 07/04/19 04:00 98.0 78 19 120/65 (83) 99 07/04/19 00:00 98.0 76 19 117/65 (82) 94 07/03/19 21:32 Nasal Cannula 2.0 07/03/19 20:00 98.5 78 19 111/98 (102) 98 07/03/19 16:00 98.0 82 18 137/81 (99) 96 Height (Feet): 4 Height (Inches): 10.00 Weight (Pounds): 107 General Appearance: WD/WN, no acute distress HEENT: normocephalic, atraumatic, anicteric, mucous membranes moist, PERRL Respiratory/Chest: chest wall non-tender, lungs clear, normal breath sounds, no respiratory distress, no accessory muscle use Cardiovascular: normal peripheral pulses, normal rate, regular rhythm, no gallop/murmur, no JVD Abdomen: normal bowel sounds, soft, non tender, no organomegaly, non distended , no mass, no scars Genitourinary: normal external genitalia Extremities: no cyanosis, no clubbing Skin: no rash, no lesions, no ulcers 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: loans consultant II-XII grossly normal, alert, responsive Lymphatic: no neck adenopathy, no groin adenopathy Musculoskeletal: normal muscle bulk, no effusion Laboratory Tests Test 07/04/19 04:00 White Blood Count 4.6 K/UL (4.8-10.8) L Red Blood Count 4.33 M/UL (4.20-5.40) Hemoglobin 11.7 G/DL (12.0-16.0) L Hematocrit 36.8 % (37.0-47.0) L Mean Corpuscular Volume 85 FL (80-99) Mean Corpuscular Hemoglobin 27.2 PG (27.0-31.0) Mean Corpuscular Hemoglobin Concent 31.9 G/DL (32.0-36.0) L Red Cell Distribution Width 16.8 % (11.6-14.8) H Platelet Count 250 K/UL (150-450) Mean Platelet Volume 7.9 FL (6.5-10.1) Neutrophils (%) (Auto) 73.9 % (45.0-75.0) Lymphocytes (%) (Auto) 13.1 % (20.0-45.0) L Monocytes (%) (Auto) 11.3 % (1.0-10.0) H Eosinophils (%) (Auto) 0.2 % (0.0-3.0) Basophils (%) (Auto) 1.5 % (0.0-2.0) Current Medications Medications (Trade) Dose Ordered Sig/Sarah Route PRN Reason Start Time Stop Time Status Last Admin Dose Admin Acetaminophen (Tylenol) 650 mg Q4H PRN ORAL Temp >100.5 / mild pain 1-3 06/23/19 23:00 07/23/19 22:59 06/27/19 08:17 Albuterol Sulfate (Proventil MDI) 2 puff Q4H PRN INH Shortness of Breath 06/23/19 23:00 09/21/19 22:59 Albuterol/ Ipratropium (Combivent Respimat) 1 puff Q6HRT INH 06/24/19 01:00 07/24/19 00:59 07/04/19 06:18 Amlodipine Besylate (Norvasc) 2.5 mg DAILY ORAL 07/01/19 09:00 07/31/19 08:59 07/03/19 09:58 Clonidine HCl (Catapres Tab) 0.1 mg Q4H PRN ORAL BP over 160 systolic 06/23/19 15:00 09/21/19 14:59 Guaifenesin/ Dextromethorphan (Robitussin DM Syrup) 10 ml Q4H PRN ORAL For Cough 06/23/19 23:00 09/21/19 22:59 06/27/19 20:42 Heparin Sodium (Porcine) (Heparin 5000 units/ml) 5,000 units EVERY 12 HOURS SUBQ 06/23/19 15:45 08/07/19 15:44 07/04/19 10:41 Loperamide HCl (Imodium) 2 mg TIDPRN PRN ORAL Diarrhea 06/25/19 12:45 07/25/19 12:44 06/29/19 14:00 Pantoprazole (Protonix) 40 mg BID ORAL 06/23/19 18:00 07/23/19 17:59 07/04/19 10:40 Sevelamer Carbonate (Renvela) 1,600 mg THREE TIMES A DAY ORAL 07/03/19 13:39 10/01/19 13:38 07/04/19 14:34 Vancomycin HCl (Vanco rx to dose) 1 ea DAILY PRN MISC Per rx protocol 06/24/19 15:15 07/24/19 15:14 Vancomycin HCl 500 mg/Dextrose 110 ml @ 110 mls/hr ONCE IVPB 07/05/19 12:00 07/05/19 21:00 Shahab Arnett M.D. 3, 2020 14:58
[2019-07-04 16:00] VITALS: BP 127/65
--- NOTE | 2019-07-04 19:32 | NUR ---
HAND-OFF: Report given to NITHIN Brooks.
[2019-07-04 20:00] VITALS: BP 118/61
--- NOTE | 2019-07-04 20:00 | NUR ---
NURSE NOTES: Patient received in bed, no distress, on o2 via NC. Ambulatory with steady gait, instructed to use call light for assistance. WIll continue to monitor.
--- NOTE | 2019-07-04 20:57 | Hematology/Onc Progress Note ---
Assessment/Plan Assessment/Plan # Leukopenia on admission - with likely infection, bilateral pulmonary edema with increased in brain natriuretic peptide most likely a component of end- stage renal disease and chronic heart failure with preserved ejection fraction. --> hepatitis and hiv neg --> imaging reviewed, abd us from 3 years ago negative --> smear is noted --> meds have been reviewed --> neupogen sq as needed prn --> wbc trend 3.7-->6.6-->3.1->3.7->4.6 # Anemia likely due to End-stage renal disease --> very mild currently, hgb 12->11.7 --> w/u as needed if lower # COVID-19, bilateral pneumonia. --> as per Id, Dr. Arnett on case --> iso, and droplet iso # History of hypertension, controlled with hydralazine --> per cards # Sepsis --> start vancomycin with azactam pending blood culture # ESRD (end stage renal disease) on dialysis --> continue hemodialysis --> renally dosed antibiotics # DM II (diabetes mellitus, type II), controlled --> recommend tight glycemic control to keep blood glucose between [id number] # Dvt ppx heparin sq Appreciate consultation and effie rn Subjective Constitutional: Denies: no symptoms, chills, fever, malaise, weakness, other HEENT: Denies: no symptoms, eye pain, blurred vision, tearing, double vision, ear pain, ear discharge, nose pain, nose congestion, throat pain, throat swelling, mouth pain, mouth swelling, other Cardiovascular: Denies: no symptoms, chest pain, edema, irregular heart rate, lightheadedness, palpitations, syncope, other 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: Denies: no symptoms, anxiety, depressed, emotional problems, headache, numbness, paresthesia, pre-existing deficit, seizure, tingling, tremors, weakness, other Hematologic/Lymphatic: Denies: no symptoms, anemia, easy bleeding, easy bruising, adenopathy, other Allergies: Coded Allergies: PENICILLINS (Verified Allergy, Unknown, 01/30/17) hives 01/30/17: ITCHING WITH ZOSYN Subjective 06/27 cape verde[place] speaking, to get hd, labs yesterday looked better, cbc has been ordered 06/28 tolerated hd well, no bleeding, labs noted, no night sweats 06/29 to get hd today, no bleeding, meds now, labs reviewed 06/30 no complaints, no bleeding, no night sweats 07/01 labs reviewed, no night sweats, meds reviewed, smear is noted 07/03 labs reviewed, no bleeding or chills, dw rn, no night sweats Objective Objective Current Medications Medications (Trade) Dose Ordered Sig/Sarah Route PRN Reason Start Time Stop Time Status Last Admin Dose Admin Acetaminophen (Tylenol) 650 mg Q4H PRN ORAL Temp >100.5 / mild pain 1-3 06/23/19 23:00 07/23/19 22:59 06/27/19 08:17 Albuterol Sulfate (Proventil MDI) 2 puff Q4H PRN INH Shortness of Breath 06/23/19 23:00 09/21/19 22:59 Albuterol/ Ipratropium (Combivent Respimat) 1 puff Q6HRT INH 06/24/19 01:00 07/24/19 00:59 07/04/19 18:25 Amlodipine Besylate (Norvasc) 2.5 mg DAILY ORAL 07/01/19 09:00 07/31/19 08:59 07/03/19 09:58 Clonidine HCl (Catapres Tab) 0.1 mg Q4H PRN ORAL BP over 160 systolic 06/23/19 15:00 09/21/19 14:59 Guaifenesin/ Dextromethorphan (Robitussin DM Syrup) 10 ml Q4H PRN ORAL For Cough 06/23/19 23:00 09/21/19 22:59 06/27/19 20:42 Heparin Sodium (Porcine) (Heparin 5000 units/ml) 5,000 units EVERY 12 HOURS SUBQ 06/23/19 15:45 08/07/19 15:44 07/04/19 20:53 Loperamide HCl (Imodium) 2 mg TIDPRN PRN ORAL Diarrhea 06/25/19 12:45 07/25/19 12:44 06/29/19 14:00 Pantoprazole (Protonix) 40 mg BID ORAL 06/23/19 18:00 07/23/19 17:59 07/04/19 17:18 Sevelamer Carbonate (Renvela) 1,600 mg THREE TIMES A DAY ORAL 07/03/19 13:39 10/01/19 13:38 07/04/19 17:18 Vancomycin HCl (Vanco rx to dose) 1 ea DAILY PRN MISC Per rx protocol 06/24/19 15:15 07/24/19 15:14 Vancomycin HCl 500 mg/Dextrose 110 ml @ 110 mls/hr ONCE IVPB 07/05/19 12:00 07/05/19 21:00 Last 24 Hour Vital Signs Date Time Temp Pulse Resp B/P (MAP) Pulse Ox O2 Delivery O2 Flow Rate FiO2 07/04/19 20:00 98.1 76 18 118/61 (80) 96 07/04/19 16:00 98.2 82 18 127/65 (85) 96 07/04/19 12:00 97.9 79 17 115/60 (78) 95 07/04/19 09:00 Nasal Cannula 2.0 07/04/19 09:00 77 113/53 07/04/19 08:00 98.0 77 18 113/53 (73) 95 07/04/19 04:00 98.0 78 19 120/65 (83) 99 07/04/19 00:00 98.0 76 19 117/65 (82) 94 07/03/19 21:32 Nasal Cannula 2.0 07/03/19 20:00 98.5 78 19 111/98 (102) 98 07/03/19 16:00 98.0 82 18 137/81 (99) 96 07/03/19 12:00 98.5 81 12 131/63 (85) 97 07/03/19 09:58 80 134/61 07/03/19 09:00 Nasal Cannula 2.0 07/03/19 08:00 98.8 80 19 134/61 (85) 97 07/03/19 04:00 97.0 64 17 127/59 (81) 94 07/03/19 00:00 98.0 82 18 124/64 (84) 97 Labs Test 07/03/19 03:10 07/04/19 04:00 White Blood Count 4.3 K/UL (4.8-10.8) 4.6 K/UL (4.8-10.8) Red Blood Count 4.17 M/UL (4.20-5.40) 4.33 M/UL (4.20-5.40) Hemoglobin 11.3 G/DL (12.0-16.0) 11.7 G/DL (12.0-16.0) Hematocrit 34.9 % (37.0-47.0) 36.8 % (37.0-47.0) Mean Corpuscular Volume 84 FL (80-99) 85 FL (80-99) Mean Corpuscular Hemoglobin 27.2 PG (27.0-31.0) 27.2 PG (27.0-31.0) Mean Corpuscular Hemoglobin Concent 32.5 G/DL (32.0-36.0) 31.9 G/DL (32.0-36.0) Red Cell Distribution Width 16.6 % (11.6-14.8) 16.8 % (11.6-14.8) Platelet Count 238 K/UL (150-450) 250 K/UL (150-450) Mean Platelet Volume 7.3 FL (6.5-10.1) 7.9 FL (6.5-10.1) Neutrophils (%) (Auto) 73.8 % (45.0-75.0) 73.9 % (45.0-75.0) Lymphocytes (%) (Auto) 13.8 % (20.0-45.0) 13.1 % (20.0-45.0) Monocytes (%) (Auto) 10.2 % (1.0-10.0) 11.3 % (1.0-10.0) Eosinophils (%) (Auto) 1.7 % (0.0-3.0) 0.2 % (0.0-3.0) Basophils (%) (Auto) 0.6 % (0.0-2.0) 1.5 % (0.0-2.0) Sodium Level 137 MMOL/L (136-145) Potassium Level 4.8 MMOL/L (3.5-5.1) Chloride Level 94 MMOL/L (98-107) Carbon Dioxide Level 29 MMOL/L (21-32) Anion Gap 14 mmol/L (5-15) Blood Urea Nitrogen 58 mg/dL (7-18) Creatinine 11.7 MG/DL (0.55-1.30) Estimat Glomerular Filtration Rate 3.6 mL/min (>60) Glucose Level 66 MG/DL (74-106) Calcium Level 9.7 MG/DL (8.5-10.1) Phosphorus Level 5.6 MG/DL (2.5-4.9) Magnesium Level 2.9 MG/DL (1.8-2.4) Total Bilirubin 0.5 MG/DL (0.2-1.0) Aspartate Amino Transf (AST/SGOT) 35 U/L (15-37) Alanine Aminotransferase (ALT/SGPT) 15 U/L (12-78) Alkaline Phosphatase 103 U/L (46-116) C-Reactive Protein, Quantitative 6.9 mg/dL (0.00-0.90) Total Protein 7.8 G/DL (6.4-8.2) Albumin 2.8 G/DL (3.4-5.0) Globulin 5.0 g/dL Albumin/Globulin Ratio 0.6 (1.0-2.7) Random Vancomycin Level 23.4 ug/mL Height (Feet): 4 Height (Inches): 10.00 Weight (Pounds): 107 Objective Gen: nad, A+O x4 Puilm: ctab, no cwr CV: rrr, no mg Abd: soft, nt, nd Ext: no cce, right upper ext fistula++ Ray Lopez MD July 04, 2019 20:57
--- NOTE | 2019-07-04 21:24 | Cardiology Progress Note ---
Assessment/Plan Assessment/Plan 1. Bilateral pulmonary edema with increased in brain natriuretic peptide most likely a component of end-stage renal disease and chronic heart failure with preserved ejection fraction. 2. End-stage renal disease. 3. COVID-19, bilateral pneumonia. 4. Hypertension, well controlled, continue amlodipine. 5. Diabetes mellitus. Continue aspirin and statins. Subjective Subjective No cardiac events reported. On NC O2 2 lit/min. Objective Last 24 Hour Vital Signs Date Time Temp Pulse Resp B/P (MAP) Pulse Ox O2 Delivery O2 Flow Rate FiO2 07/04/19 20:00 98.1 76 18 118/61 (80) 96 07/04/19 16:00 98.2 82 18 127/65 (85) 96 07/04/19 12:00 97.9 79 17 115/60 (78) 95 07/04/19 09:00 Nasal Cannula 2.0 07/04/19 09:00 77 113/53 07/04/19 08:00 98.0 77 18 113/53 (73) 95 07/04/19 04:00 98.0 78 19 120/65 (83) 99 07/04/19 00:00 98.0 76 19 117/65 (82) 94 07/03/19 21:32 Nasal Cannula 2.0 Laboratory Tests Test 07/04/19 04:00 White Blood Count 4.6 K/UL (4.8-10.8) L Red Blood Count 4.33 M/UL (4.20-5.40) Hemoglobin 11.7 G/DL (12.0-16.0) L Hematocrit 36.8 % (37.0-47.0) L Mean Corpuscular Volume 85 FL (80-99) Mean Corpuscular Hemoglobin 27.2 PG (27.0-31.0) Mean Corpuscular Hemoglobin Concent 31.9 G/DL (32.0-36.0) L Red Cell Distribution Width 16.8 % (11.6-14.8) H Platelet Count 250 K/UL (150-450) Mean Platelet Volume 7.9 FL (6.5-10.1) Neutrophils (%) (Auto) 73.9 % (45.0-75.0) Lymphocytes (%) (Auto) 13.1 % (20.0-45.0) L Monocytes (%) (Auto) 11.3 % (1.0-10.0) H Eosinophils (%) (Auto) 0.2 % (0.0-3.0) Basophils (%) (Auto) 1.5 % (0.0-2.0) Objective HEENT: Atraumatic and normocephalic. Anicteric. Pupils are equal, round, reactive to light and accommodation. Extraocular muscles intact. NECK: JVP less than 5 cm. No carotid bruit. Carotid upstroke is 2+ bilaterally. CVS: Normal S1, S2. Regular rate and rhythm. No murmurs, gallops, or rubs. PMI is at fourth intercostal space at the midclavicular line. LUNGS: Diminished breath sounds in both lungs with bibasilar crackles. ABDOMEN: Soft, nontender, nondistended. No hepatosplenomegaly. Positive bowel sounds. EXTREMITIES: No evidence of edema, clubbing, or cyanosis. Param No MD July 04, 2019 21:24
--- NOTE | 2019-07-04 23:06 | General Progress Note ---
Assessment/Plan Status: stable Assessment/Plan: S: I am feeling better O: appears comfortable. mild sob PHYSICAL EXAMINATION: HEAD AND NECK: Atraumatic and normocephalic. CHEST: Diffuse bronchial breathing sounds. HEART: S1, S2. Regular rate and rhythm. ABDOMEN: Soft. No organomegaly. MUSCULOSKELETAL: Positive for the right lesly with AV graft in place. NEUROLOGY: Awake, alert, oriented x3. LABORATORY DATA: Dated July 03 reviewed Meds: reviewed and reconciled ASSESSMENT: 1. Pneumonia secondary to COVID-19. 2. Hypoxemic respiratory failure. Continue with nasal oxygen. 3. End-stage renal disease, on hemodialysis. 4. Abnormal blood sugar. 5. Hypertension. 6. Hypothyroidism. 7. GI and DVT prophylaxis. PLAN OF CARE: DC Heparin SCD continue Hydroxychloroquine Notes from ID and pulmonary reviewed c/w empirical abx to cover possible superimposed bacterial PNA Subjective Allergies: Coded Allergies: PENICILLINS (Verified Allergy, Unknown, 01/30/17) hives 01/30/17: ITCHING WITH ZOSYN Objective Last 24 Hour Vital Signs Date Time Temp Pulse Resp B/P (MAP) Pulse Ox O2 Delivery O2 Flow Rate FiO2 07/04/19 21:00 Nasal Cannula 2.0 07/04/19 20:00 98.1 76 18 118/61 (80) 96 07/04/19 16:00 98.2 82 18 127/65 (85) 96 07/04/19 12:00 97.9 79 17 115/60 (78) 95 07/04/19 09:00 Nasal Cannula 2.0 07/04/19 09:00 77 113/53 07/04/19 08:00 98.0 77 18 113/53 (73) 95 07/04/19 04:00 98.0 78 19 120/65 (83) 99 07/04/19 00:00 98.0 76 19 117/65 (82) 94 Laboratory Tests 07/04/19 04:00: White Blood Count 4.6L, Red Blood Count 4.33, Hemoglobin 11.7L, Hematocrit 36.8L , Mean Corpuscular Volume 85, Mean Corpuscular Hemoglobin 27.2, Mean Corpuscular Hemoglobin Concent 31.9L, Red Cell Distribution Width 16.8H, Platelet Count 250, Mean Platelet Volume 7.9, Neutrophils (%) (Auto) 73.9, Lymphocytes (%) (Auto) 13.1L, Monocytes (%) (Auto) 11.3H, Eosinophils (%) (Auto ) 0.2, Basophils (%) (Auto) 1.5 Height (Feet): 4 Height (Inches): 10.00 Weight (Pounds): 107 Wally Waller MD July 04, 2019 23:06
[2019-07-05 04:00] VITALS: BP 120/57
[2019-07-05 06:21] LABS: ALANINE AMINOTRANSFERASE 24 U/L (12-78); ALBUMIN 3.1 G/DL (3.4-5.0); ALBUMIN/GLOBULIN RATIO 0.6 (1.0-2.7); ALKALINE PHOSPHATASE 135 U/L (46-116); ANION GAP 10 mmol/L (5-15); ASPARTATE AMINO TRANSFERASE 35 U/L (15-37); BILIRUBIN,TOTAL 0.6 MG/DL (0.2-1.0); BLOOD UREA NITROGEN 46 mg/dL (7-18); CALCIUM 9.5 MG/DL (8.5-10.1); CARBON DIOXIDE 33 MMOL/L (21-32); CHLORIDE 95 MMOL/L (98-107); CREATININE 11.7 MG/DL (0.55-1.30); POTASSIUM 3.7 MMOL/L (3.5-5.1); SODIUM 138 MMOL/L (136-145)
[2019-07-05 06:35] LABS: BASOPHILS % (AUTO) 1.3 % (0.0-2.0); EOSINOPHILS % (AUTO) 0.2 % (0.0-3.0); HEMATOCRIT 36.4 % (37.0-47.0); HEMOGLOBIN 11.5 G/DL (12.0-16.0); LYMPHOCYTES % (AUTO) 13.2 % (20.0-45.0); MEAN CORPUSCULAR VOLUME 84 FL (80-99); MONOCYTES % (AUTO) 11.4 % (1.0-10.0); PLATELET COUNT 248 K/UL (150-450); RED BLOOD COUNT 4.31 M/UL (4.20-5.40); RED CELL DISTRIBUTION WIDTH 16.5 % (11.6-14.8); WHITE BLOOD COUNT 4.9 K/UL (4.8-10.8)
--- NOTE | 2019-07-05 07:22 | NUR ---
HAND-OFF: Report given to Mikaela WELLER.
--- NOTE | 2019-07-05 07:34 | NUR ---
NURSE NOTES: received pt in bed, asleep, no sign of distress noted. Bed locked at lowest position possible, call light within easy reach, siderails up x2. Left hand IV access, saline locked. Will continue to monitor pt and follow up with POC.
[2019-07-05 08:00] VITALS: BP 135/82
[2019-07-05] MEDS: Heparin 5000 units/ml inj SUBQ SCH ×2 (08:08→20:41)
[2019-07-05] MEDS: Renvela 800mg Pkt ORAL SCH ×3 (08:14→17:45)
--- NOTE | 2019-07-05 09:09 | Pulmonology Progress Note ---
Catherine Bryan HUB CUTTER 07/05/19 0909: Assessment/Plan Assessment/Plan Problem List: * confirmed COVID-19 acute respiratory illness * bilateral PNA, probably HCAP due to CoVID * Mild transaminitis * ESRD on HD * E/lyte imbalance * HTN * Psychiatric disorder Plan: [facility] floor Close monitoring of respiratory status and oxygen needs * ID follow, abx as per ID;Vanco and Aztreonam-completed * completed Plaquenil 06/28 x 5 days - per ID recs * BCX 06/22 and 06/23 NGTD * SARS-CoV-2 by PCR 06/22 detected, on isolation (prior COVID infection was also confirmed by family) * CXR 06/24 - with bilateral mixed interstitial and airspace disease, slightly worse * CXR 06/27 - Mostly stable left-sided infiltrates, increasing right lung infiltrates, likely pneumonia, * CXR 06/30 -Bilateral infiltrates, overall stable versus perhaps slightly improved on the left, over 3 days * SCX if able * MDR with spacer prn * O2 titrate to keep sat above 90% * A/tussive prn * Monitor volumes, HD per renal * trend CRP, ferritin; , LDH : last CRP 20.5( trending down), ferritin 302 , LDH 440 * Check D dimer-1.27; * Monitor blood pressure, on Hydralazine currently * DVT prophylaxis * monitor volumes, HD as per nephro with close monitoring of renal parameters and lytes * more calm and cooperative * depending on disposition may need another CoVID testing case discussed and evaluated by supervising physician Subjective ROS Limited/Unobtainable: No Constitutional: Reports: fatigue Gastrointestinal/Abdominal: Reports: no symptoms Psychiatric: Reports: anxiety Skin: Reports: no symptoms Musculoskeletal: Reports: no symptoms Allergies: Coded Allergies: PENICILLINS (Verified Allergy, Unknown, 01/30/17) hives 01/30/17: ITCHING WITH ZOSYN Subjective on O2 2 L via NC pulse ox stable, no fevers CXR 06/30 noted, stable MELANIA-CoV-2 by PCR 06/22 + detected remains in isolation CRP trending down more compliant with treatment last HD 07/02 Objective Last 24 Hour Vital Signs Date Time Temp Pulse Resp B/P (MAP) Pulse Ox O2 Delivery O2 Flow Rate FiO2 07/05/19 08:07 71 120/57 07/05/19 08:00 97.6 100 18 135/82 (99) 98 07/05/19 04:00 97.7 71 18 120/57 (78) 96 07/04/19 21:00 Nasal Cannula 2.0 07/04/19 20:00 98.1 76 18 118/61 (80) 96 07/04/19 16:00 98.2 82 18 127/65 (85) 96 07/04/19 12:00 97.9 79 17 115/60 (78) 95 Intake and Output 07/04/19 07/05/19 19:00 07:00 Intake Total 200 ml Balance 200 ml Intake Oral 200 ml Objective General Appearance: no acute distress German speaking female ,anxious, HEENT: normocephalic, atraumatic, anicteric, mucous membranes moist, PERRL Respiratory/Chest: BS overall clear, no respiratory distress, no accessory muscle use Cardiovascular: normal rate, no JVD Abdomen: normal bowel sounds, soft, non tender, non distended Extremities: no edema, pedal pulses normal, AV fistula + thrill/bruit 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: alert, responsive Musculoskeletal: normal muscle bulk Laboratory Tests 07/05/19 05:00: White Blood Count 4.9, Red Blood Count 4.31, Hemoglobin 11.5L, Hematocrit 36.4L , Mean Corpuscular Volume 84, Mean Corpuscular Hemoglobin 26.8L, Mean Corpuscular Hemoglobin Concent 31.7L, Red Cell Distribution Width 16.5H, Platelet Count 248, Mean Platelet Volume 8.5, Neutrophils (%) (Auto) 74.0, Lymphocytes (%) (Auto) 13.2L, Monocytes (%) (Auto) 11.4H, Eosinophils (%) (Auto ) 0.2, Basophils (%) (Auto) 1.3, Sodium Level 138, Potassium Level 3.7, Chloride Level 95L, Carbon Dioxide Level 33H, Anion Gap 10, Blood Urea Nitrogen 46H, Creatinine 11.7H, Estimat Glomerular Filtration Rate 3.6, Glucose Level 98 , Calcium Level 9.5, Total Bilirubin 0.6, Aspartate Amino Transf (AST/SGOT) 35, Alanine Aminotransferase (ALT/SGPT) 24, Alkaline Phosphatase 135H, Total Protein 8.0, Albumin 3.1L, Globulin 4.9, Albumin/Globulin Ratio 0.6L Current Medications Medications (Trade) Dose Ordered Sig/Sarah Route PRN Reason Start Time Stop Time Status Last Admin Dose Admin Acetaminophen (Tylenol) 650 mg Q4H PRN ORAL Temp >100.5 / mild pain 1-3 06/23/19 23:00 07/23/19 22:59 06/27/19 08:17 Albuterol Sulfate (Proventil MDI) 2 puff Q4H PRN INH Shortness of Breath 06/23/19 23:00 09/21/19 22:59 Albuterol/ Ipratropium (Combivent Respimat) 1 puff Q6HRT INH 06/24/19 01:00 07/24/19 00:59 07/04/19 18:25 Amlodipine Besylate (Norvasc) 2.5 mg DAILY ORAL 07/01/19 09:00 07/31/19 08:59 07/03/19 09:58 Clonidine HCl (Catapres Tab) 0.1 mg Q4H PRN ORAL BP over 160 systolic 06/23/19 15:00 09/21/19 14:59 Guaifenesin/ Dextromethorphan (Robitussin DM Syrup) 10 ml Q4H PRN ORAL For Cough 06/23/19 23:00 09/21/19 22:59 06/27/19 20:42 Heparin Sodium (Porcine) (Heparin 5000 units/ml) 5,000 units EVERY 12 HOURS SUBQ 06/23/19 15:45 08/07/19 15:44 07/04/19 20:53 Loperamide HCl (Imodium) 2 mg TIDPRN PRN ORAL Diarrhea 06/25/19 12:45 07/25/19 12:44 06/29/19 14:00 Pantoprazole (Protonix) 40 mg BID ORAL 06/23/19 18:00 07/23/19 17:59 07/05/19 08:14 Sevelamer Carbonate (Renvela) 1,600 mg THREE TIMES A DAY ORAL 07/03/19 13:39 10/01/19 13:38 07/05/19 08:14 Vancomycin HCl (Vanco rx to dose) 1 ea DAILY PRN MISC Per rx protocol 06/24/19 15:15 07/24/19 15:14 Vancomycin HCl 500 mg/Dextrose 110 ml @ 110 mls/hr ONCE IVPB 07/05/19 12:00 07/05/19 21:00 Allan Morales MD 07/05/19 1347: Assessment/Plan Assessment/Plan Patient seen and examined with HUB CUTTER, agree with above A&P as it reflects our joint deliberations. Subjective Allergies: Coded Allergies: PENICILLINS (Verified Allergy, Unknown, 01/30/17) hives 01/30/17: ITCHING WITH Catherine Barlow NP July 05, 2019 09:09 Allan Morales MD July 05, 2019 13:47
--- NOTE | 2019-07-05 10:32 | Nephrology Progress Note ---
Assessment/Plan Problem List: (1) Pneumonia (2) COVID-19 Assessment: CRP and LDH are elevated-ferritin and d-dimer are not elevated (3) ESRD (end stage renal disease) on dialysis (4) HTN (hypertension) Assessment COVID-19 infection/pneumonia End-stage renal disease on hemodialysis 3 times a week Hypertension Diabetes mellitus Plan management per ID Hemodialysis next July 01 next dialysis July 04 Keep the blood pressure in check, Renal diet Subjective ROS Limited/Unobtainable: No Constitutional: Reports: malaise Objective Objective Last 24 Hour Vital Signs Date Time Temp Pulse Resp B/P (MAP) Pulse Ox O2 Delivery O2 Flow Rate FiO2 07/05/19 08:07 71 120/57 07/05/19 08:00 97.6 100 18 135/82 (99) 98 07/05/19 04:00 97.7 71 18 120/57 (78) 96 07/04/19 21:00 Nasal Cannula 2.0 07/04/19 20:00 98.1 76 18 118/61 (80) 96 07/04/19 16:00 98.2 82 18 127/65 (85) 96 07/04/19 12:00 97.9 79 17 115/60 (78) 95 Intake and Output 07/04/19 07/05/19 19:00 07:00 Intake Total 200 ml Balance 200 ml Intake Oral 200 ml Laboratory Tests 07/05/19 05:00: White Blood Count 4.9, Red Blood Count 4.31, Hemoglobin 11.5L, Hematocrit 36.4L , Mean Corpuscular Volume 84, Mean Corpuscular Hemoglobin 26.8L, Mean Corpuscular Hemoglobin Concent 31.7L, Red Cell Distribution Width 16.5H, Platelet Count 248, Mean Platelet Volume 8.5, Neutrophils (%) (Auto) 74.0, Lymphocytes (%) (Auto) 13.2L, Monocytes (%) (Auto) 11.4H, Eosinophils (%) (Auto ) 0.2, Basophils (%) (Auto) 1.3, Sodium Level 138, Potassium Level 3.7, Chloride Level 95L, Carbon Dioxide Level 33H, Anion Gap 10, Blood Urea Nitrogen 46H, Creatinine 11.7H, Estimat Glomerular Filtration Rate 3.6, Glucose Level 98 , Calcium Level 9.5, Total Bilirubin 0.6, Aspartate Amino Transf (AST/SGOT) 35, Alanine Aminotransferase (ALT/SGPT) 24, Alkaline Phosphatase 135H, Total Protein 8.0, Albumin 3.1L, Globulin 4.9, Albumin/Globulin Ratio 0.6L Height (Feet): 4 Height (Inches): 10.00 Weight (Pounds): 104 General Appearance: no apparent distress Objective No change Rufus Mo MD July 05, 2019 10:32
--- NOTE | 2019-07-05 11:05 | Hematology/Onc Progress Note ---
Assessment/Plan Assessment/Plan # Leukopenia on admission - with likely infection, bilateral pulmonary edema with increased in brain natriuretic peptide most likely a component of end- stage renal disease and chronic heart failure with preserved ejection fraction. --> hepatitis and hiv neg --> imaging reviewed, abd us from 3 years ago negative --> smear is noted --> meds have been reviewed --> neupogen sq as needed prn --> wbc trend 3.7-->6.6-->3.1->3.7->4.6->4.9 # Anemia likely due to End-stage renal disease --> very mild currently, hgb 12->11.7 --> w/u as needed if lower # COVID-19, bilateral pneumonia. --> as per Id, Dr. Arnett on case --> iso, and droplet iso # History of hypertension, controlled with hydralazine --> per cards # Sepsis --> start vancomycin with azactam pending blood culture # ESRD (end stage renal disease) on dialysis --> continue hemodialysis --> renally dosed antibiotics # DM II (diabetes mellitus, type II), controlled --> recommend tight glycemic control to keep blood glucose between 432163 # Dvt ppx heparin sq Appreciate consultation and effie rn Subjective Constitutional: Denies: no symptoms, chills, fever, malaise, weakness, other HEENT: Denies: no symptoms, eye pain, blurred vision, tearing, double vision, ear pain, ear discharge, nose pain, nose congestion, throat pain, throat swelling, mouth pain, mouth swelling, other Cardiovascular: Denies: no symptoms, chest pain, edema, irregular heart rate, lightheadedness, palpitations, syncope, other Respiratory: Denies: no symptoms, cough, shortness of breath, SOB with excertion, SOB at rest, sputum, wheezing, other Gastrointestinal/Abdominal: Denies: no symptoms, abdomen distended, abdominal pain, black stools, tarry stools, blood in stool, constipated, diarrhea, difficulty swallowing, nausea, poor appetite, poor fluid intake, rectal bleeding , vomiting, other Genitourinary: Denies: no symptoms, burning, discharge, frequency, flank pain, hematuria, incontinence, pain, urgency, other 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: Denies: no symptoms, anxiety, depressed, emotional problems, headache, numbness, paresthesia, pre-existing deficit, seizure, tingling, tremors, weakness, other Endocrine: Denies: no symptoms, excessive sweating, flushing, intolerance to cold, intolerance to heat, increased hunger, increased thirst, increased urine, unexplained weight gain, unexplained weight loss, other Allergies: Coded Allergies: PENICILLINS (Verified Allergy, Unknown, 01/30/17) hives 01/30/17: ITCHING WITH ZOSYN Subjective 06/27 faroese speaking, to get hd, labs yesterday looked better, cbc has been ordered 06/28 tolerated hd well, no bleeding, labs noted, no night sweats 06/29 to get hd today, no bleeding, meds now, labs reviewed 06/30 no complaints, no bleeding, no night sweats 07/01 labs reviewed, no night sweats, meds reviewed, smear is noted 07/03 labs reviewed, no bleeding or chills, dw rn, no night sweats 07/04 as per renal for hd today, labs are noted, no bleeding Objective Objective Current Medications Medications (Trade) Dose Ordered Sig/Sarah Route PRN Reason Start Time Stop Time Status Last Admin Dose Admin Acetaminophen (Tylenol) 650 mg Q4H PRN ORAL Temp >100.5 / mild pain 1-3 06/23/19 23:00 07/23/19 22:59 06/27/19 08:17 Albuterol Sulfate (Proventil MDI) 2 puff Q4H PRN INH Shortness of Breath 06/23/19 23:00 09/21/19 22:59 Albuterol/ Ipratropium (Combivent Respimat) 1 puff Q6HRT INH 06/24/19 01:00 07/24/19 00:59 07/04/19 18:25 Amlodipine Besylate (Norvasc) 2.5 mg DAILY ORAL 07/01/19 09:00 07/31/19 08:59 07/03/19 09:58 Clonidine HCl (Catapres Tab) 0.1 mg Q4H PRN ORAL BP over 160 systolic 06/23/19 15:00 09/21/19 14:59 Guaifenesin/ Dextromethorphan (Robitussin DM Syrup) 10 ml Q4H PRN ORAL For Cough 06/23/19 23:00 09/21/19 22:59 06/27/19 20:42 Heparin Sodium (Porcine) (Heparin 5000 units/ml) 5,000 units EVERY 12 HOURS SUBQ 06/23/19 15:45 08/07/19 15:44 07/04/19 20:53 Loperamide HCl (Imodium) 2 mg TIDPRN PRN ORAL Diarrhea 06/25/19 12:45 07/25/19 12:44 06/29/19 14:00 Pantoprazole (Protonix) 40 mg BID ORAL 06/23/19 18:00 07/23/19 17:59 07/05/19 08:14 Sevelamer Carbonate (Renvela) 1,600 mg THREE TIMES A DAY ORAL 07/03/19 13:39 10/01/19 13:38 07/05/19 08:14 Vancomycin HCl (Vanco rx to dose) 1 ea DAILY PRN MISC Per rx protocol 06/24/19 15:15 07/24/19 15:14 Vancomycin HCl 500 mg/Dextrose 110 ml @ 110 mls/hr ONCE IVPB 07/05/19 12:00 07/05/19 21:00 Last 24 Hour Vital Signs Date Time Temp Pulse Resp B/P (MAP) Pulse Ox O2 Delivery O2 Flow Rate FiO2 07/05/19 08:07 71 120/57 07/05/19 08:00 97.6 100 18 135/82 (99) 98 07/05/19 04:00 97.7 71 18 120/57 (78) 96 07/04/19 21:00 Nasal Cannula 2.0 07/04/19 20:00 98.1 76 18 118/61 (80) 96 07/04/19 16:00 98.2 82 18 127/65 (85) 96 07/04/19 12:00 97.9 79 17 115/60 (78) 95 07/04/19 09:00 Nasal Cannula 2.0 07/04/19 09:00 77 113/53 07/04/19 08:00 98.0 77 18 113/53 (73) 95 07/04/19 04:00 98.0 78 19 120/65 (83) 99 07/04/19 00:00 98.0 76 19 117/65 (82) 94 07/03/19 21:32 Nasal Cannula 2.0 07/03/19 20:00 98.5 78 19 111/98 (102) 98 07/03/19 16:00 98.0 82 18 137/81 (99) 96 07/03/19 12:00 98.5 81 12 131/63 (85) 97 Intake and Output 07/04/19 07/05/19 19:00 07:00 Intake Total 200 ml Balance 200 ml Intake Oral 200 ml Labs Test 07/03/19 03:10 07/04/19 04:00 07/05/19 05:00 White Blood Count 4.3 K/UL (4.8-10.8) 4.6 K/UL (4.8-10.8) 4.9 K/UL (4.8-10.8) Red Blood Count 4.17 M/UL (4.20-5.40) 4.33 M/UL (4.20-5.40) 4.31 M/UL (4.20-5.40) Hemoglobin 11.3 G/DL (12.0-16.0) 11.7 G/DL (12.0-16.0) 11.5 G/DL (12.0-16.0) Hematocrit 34.9 % (37.0-47.0) 36.8 % (37.0-47.0) 36.4 % (37.0-47.0) Mean Corpuscular Volume 84 FL (80-99) 85 FL (80-99) 84 FL (80-99) Mean Corpuscular Hemoglobin 27.2 PG (27.0-31.0) 27.2 PG (27.0-31.0) 26.8 PG (27.0-31.0) Mean Corpuscular Hemoglobin Concent 32.5 G/DL (32.0-36.0) 31.9 G/DL (32.0-36.0) 31.7 G/DL (32.0-36.0) Red Cell Distribution Width 16.6 % (11.6-14.8) 16.8 % (11.6-14.8) 16.5 % (11.6-14.8) Platelet Count 238 K/UL (150-450) 250 K/UL (150-450) 248 K/UL (150-450) Mean Platelet Volume 7.3 FL (6.5-10.1) 7.9 FL (6.5-10.1) 8.5 FL (6.5-10.1) Neutrophils (%) (Auto) 73.8 % (45.0-75.0) 73.9 % (45.0-75.0) 74.0 % (45.0-75.0) Lymphocytes (%) (Auto) 13.8 % (20.0-45.0) 13.1 % (20.0-45.0) 13.2 % (20.0-45.0) Monocytes (%) (Auto) 10.2 % (1.0-10.0) 11.3 % (1.0-10.0) 11.4 % (1.0-10.0) Eosinophils (%) (Auto) 1.7 % (0.0-3.0) 0.2 % (0.0-3.0) 0.2 % (0.0-3.0) Basophils (%) (Auto) 0.6 % (0.0-2.0) 1.5 % (0.0-2.0) 1.3 % (0.0-2.0) Sodium Level 137 MMOL/L (136-145) 138 MMOL/L (136-145) Potassium Level 4.8 MMOL/L (3.5-5.1) 3.7 MMOL/L (3.5-5.1) Chloride Level 94 MMOL/L (98-107) 95 MMOL/L (98-107) Carbon Dioxide Level 29 MMOL/L (21-32) 33 MMOL/L (21-32) Anion Gap 14 mmol/L (5-15) 10 mmol/L (5-15) Blood Urea Nitrogen 58 mg/dL (7-18) 46 mg/dL (7-18) Creatinine 11.7 MG/DL (0.55-1.30) 11.7 MG/DL (0.55-1.30) Estimat Glomerular Filtration Rate 3.6 mL/min (>60) 3.6 mL/min (>60) Glucose Level 66 MG/DL (74-106) 98 MG/DL (74-106) Calcium Level 9.7 MG/DL (8.5-10.1) 9.5 MG/DL (8.5-10.1) Phosphorus Level 5.6 MG/DL (2.5-4.9) Magnesium Level 2.9 MG/DL (1.8-2.4) Total Bilirubin 0.5 MG/DL (0.2-1.0) 0.6 MG/DL (0.2-1.0) Aspartate Amino Transf (AST/SGOT) 35 U/L (15-37) 35 U/L (15-37) Alanine Aminotransferase (ALT/SGPT) 15 U/L (12-78) 24 U/L (12-78) Alkaline Phosphatase 103 U/L (46-116) 135 U/L (46-116) C-Reactive Protein, Quantitative 6.9 mg/dL (0.00-0.90) Total Protein 7.8 G/DL (6.4-8.2) 8.0 G/DL (6.4-8.2) Albumin 2.8 G/DL (3.4-5.0) 3.1 G/DL (3.4-5.0) Globulin 5.0 g/dL 4.9 g/dL Albumin/Globulin Ratio 0.6 (1.0-2.7) 0.6 (1.0-2.7) Random Vancomycin Level 23.4 ug/mL Height (Feet): 4 Height (Inches): 10.00 Weight (Pounds): 104 Objective Gen: nad, A+O x4 Puilm: ctab, no cwr CV: rrr, no mg Abd: soft, nt, nd Ext: no cce, right upper ext fistula++ Ray Lopez MD July 05, 2019 11:05
--- NOTE | 2019-07-05 11:05 | General Progress Note ---
Assessment/Plan Status: stable Assessment/Plan: S: I am feeling better O: appears comfortable. mild sob PHYSICAL EXAMINATION: HEAD AND NECK: Atraumatic and normocephalic. CHEST: Diffuse bronchial breathing sounds. HEART: S1, S2. Regular rate and rhythm. ABDOMEN: Soft. No organomegaly. MUSCULOSKELETAL: Positive for the right lesly with AV graft in place. NEUROLOGY: Awake, alert, oriented x3. LABORATORY DATA: Dated July 03 reviewed Meds: reviewed and reconciled ASSESSMENT: 1. Pneumonia secondary to COVID-19. 2. Hypoxemic respiratory failure. Continue with nasal oxygen. 3. End-stage renal disease, on hemodialysis. 4. Abnormal blood sugar. 5. Hypertension. 6. Hypothyroidism. 7. GI and DVT prophylaxis. PLAN OF CARE: DC Heparin SCD continue Hydroxychloroquine Notes from ID and pulmonary reviewed c/w empirical abx to cover possible superimposed bacterial PNA Following completion of the two weeks isolation . patient may return home and continue remainder of isolation Subjective Allergies: Coded Allergies: PENICILLINS (Verified Allergy, Unknown, 01/30/17) hives 01/30/17: ITCHING WITH ZOSYN Objective Last 24 Hour Vital Signs Date Time Temp Pulse Resp B/P (MAP) Pulse Ox O2 Delivery O2 Flow Rate FiO2 07/05/19 08:07 71 120/57 07/05/19 08:00 97.6 100 18 135/82 (99) 98 07/05/19 04:00 97.7 71 18 120/57 (78) 96 07/04/19 21:00 Nasal Cannula 2.0 07/04/19 20:00 98.1 76 18 118/61 (80) 96 07/04/19 16:00 98.2 82 18 127/65 (85) 96 07/04/19 12:00 97.9 79 17 115/60 (78) 95 Intake and Output 07/04/19 07/05/19 19:00 07:00 Intake Total 200 ml Balance 200 ml Intake Oral 200 ml Laboratory Tests 07/05/19 05:00: White Blood Count 4.9, Red Blood Count 4.31, Hemoglobin 11.5L, Hematocrit 36.4L , Mean Corpuscular Volume 84, Mean Corpuscular Hemoglobin 26.8L, Mean Corpuscular Hemoglobin Concent 31.7L, Red Cell Distribution Width 16.5H, Platelet Count 248, Mean Platelet Volume 8.5, Neutrophils (%) (Auto) 74.0, Lymphocytes (%) (Auto) 13.2L, Monocytes (%) (Auto) 11.4H, Eosinophils (%) (Auto ) 0.2, Basophils (%) (Auto) 1.3, Sodium Level 138, Potassium Level 3.7, Chloride Level 95L, Carbon Dioxide Level 33H, Anion Gap 10, Blood Urea Nitrogen 46H, Creatinine 11.7H, Estimat Glomerular Filtration Rate 3.6, Glucose Level 98 , Calcium Level 9.5, Total Bilirubin 0.6, Aspartate Amino Transf (AST/SGOT) 35, Alanine Aminotransferase (ALT/SGPT) 24, Alkaline Phosphatase 135H, Total Protein 8.0, Albumin 3.1L, Globulin 4.9, Albumin/Globulin Ratio 0.6L Height (Feet): 4 Height (Inches): 10.00 Weight (Pounds): 104 Wally Waller MD July 05, 2019 11:05
[2019-07-05 12:00] VITALS: BP 130/80
[2019-07-05] MEDS ORDERED: Vancomycin 500mg/D5W 110ml IVPB SCH ×2 (12:00)
--- NOTE | 2019-07-05 12:10 | NUR ---
*-* INSURANCE *-* UPDATED AVAILABLE CLINICALS HAVE BEEN FAXED TO: [facility] P: [phone] F: [phone] &- ALISA IRVIN:BRITTANY REF# [id number] P: [phone] F: [phone]
--- NOTE | 2019-07-05 14:49 | NUR ---
CASE MANAGEMENT:REVIEW SI;COVID-19+ PNA HYPOXEMIC RESPIRATORY FAILURE. ESRD ON HD. 98.6 74 19 140/74 96% 2L NC IS;VANCOMYCIN IV ONCE COMBIVENT INH Q6 HRS PRN PROVENTIL INH Q4 HRS PRN PROTONIX PO BID HEPARIN Q12 HRS NORVASC PO QD MED SURG STATUS DCP; FROM HOME PLAN;CONT CONTACT/DROPLET ISOLATION
[2019-07-05 16:00] VITALS: BP 131/74
--- NOTE | 2019-07-05 19:29 | NUR ---
HAND-OFF: Report given to NITHIN Villavicencio.
--- NOTE | 2019-07-05 19:33 | NUR ---
NURSE NOTES: Received report from NITHIN Al. MENDOZA x 4, malay speaking, on NC2l, ambulatory. IV site intact. AV shunt on MIKE noted. No acute distress noted. Bed locked, lowest position, alarm on, side rails up, call light within reach. Will continue to monitor.
[2019-07-05 20:00] VITALS: BP 123/76
--- NOTE | 2019-07-05 21:25 | Infectious Diseases Prog Note ---
Assessment/Plan Problems: (1) PNA (pneumonia) Assessment & Plan: superimposed with COVID 19 infection, S/P vancomycin and aztreonam empirically for 10 days . may remove from enhanced droplet isolation for now (2) COVID-19 Assessment & Plan: tested positive with MANAGER COST PCR test , S/P hydroxychloroquine with zinc and vitamin C for five days total . may remove from enhanced droplet isolation. (3) Fever Assessment & Plan: suspect due to the above , IMPROVING , continue Tylenol as needed (4) Sepsis Assessment & Plan: due to the above resolved , S/P vancomycin with azactam to cover for pneumonia for 10 days , blood culture x 2 is negative (5) ESRD (end stage renal disease) on dialysis Assessment & Plan: continue hemodialysis and renally dosed antibiotics as per pharmacy (6) DM II (diabetes mellitus, type II), controlled Assessment & Plan: recommend tight glycemic control to keep blood glucose between [id number] Subjective Constitutional: Reports: no symptoms HEENT: Reports: no symptoms Respiratory: Reports: no symptoms Breasts: Reports: no symptoms Cardiovascular: Reports: no symptoms Gastrointestinal/Abdominal: Reports: no symptoms Genitourinary: Reports: no symptoms Neurologic: Reports: no symptoms Psychiatric: Reports: no symptoms Skin: Reports: no symptoms Endocrine: Reports: no symptoms Hematologic: Reports: no symptoms Musculoskeletal: Reports: no symptoms Allergies: Coded Allergies: PENICILLINS (Verified Allergy, Unknown, 01/30/17) hives 01/30/17: ITCHING WITH ZOSYN Objective Vital Signs Last 24 Hour Vital Signs Date Time Temp Pulse Resp B/P (MAP) Pulse Ox O2 Delivery O2 Flow Rate FiO2 07/05/19 16:00 97.8 73 18 131/74 (93) 99 07/05/19 12:00 97.8 99 18 130/80 (97) 98 07/05/19 09:00 Nasal Cannula 2.0 07/05/19 08:07 71 120/57 07/05/19 08:00 97.6 100 18 135/82 (99) 98 07/05/19 04:00 97.7 71 18 120/57 (78) 96 Height (Feet): 4 Height (Inches): 10.00 Weight (Pounds): 104 General Appearance: WD/WN, no acute distress HEENT: normocephalic, atraumatic, anicteric, mucous membranes moist, PERRL Respiratory/Chest: chest wall non-tender, lungs clear, normal breath sounds, no respiratory distress, no accessory muscle use Cardiovascular: normal peripheral pulses, normal rate, regular rhythm, no gallop/murmur, no JVD Abdomen: normal bowel sounds, soft, non tender, no organomegaly, non distended , no mass, no scars Genitourinary: normal external genitalia Extremities: no cyanosis, no clubbing Skin: no rash, no lesions, no ulcers 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: 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, no motor/sensory deficits, alert, oriented x 3, responsive Lymphatic: no neck adenopathy, no groin adenopathy Musculoskeletal: normal muscle bulk Laboratory Tests Test 07/05/19 05:00 White Blood Count 4.9 K/UL (4.8-10.8) Red Blood Count 4.31 M/UL (4.20-5.40) Hemoglobin 11.5 G/DL (12.0-16.0) L Hematocrit 36.4 % (37.0-47.0) L Mean Corpuscular Volume 84 FL (80-99) Mean Corpuscular Hemoglobin 26.8 PG (27.0-31.0) L Mean Corpuscular Hemoglobin Concent 31.7 G/DL (32.0-36.0) L Red Cell Distribution Width 16.5 % (11.6-14.8) H Platelet Count 248 K/UL (150-450) Mean Platelet Volume 8.5 FL (6.5-10.1) Neutrophils (%) (Auto) 74.0 % (45.0-75.0) Lymphocytes (%) (Auto) 13.2 % (20.0-45.0) L Monocytes (%) (Auto) 11.4 % (1.0-10.0) H Eosinophils (%) (Auto) 0.2 % (0.0-3.0) Basophils (%) (Auto) 1.3 % (0.0-2.0) Sodium Level 138 MMOL/L (136-145) Potassium Level 3.7 MMOL/L (3.5-5.1) Chloride Level 95 MMOL/L (98-107) L Carbon Dioxide Level 33 MMOL/L (21-32) H Anion Gap 10 mmol/L (5-15) Blood Urea Nitrogen 46 mg/dL (7-18) H Creatinine 11.7 MG/DL (0.55-1.30) H Estimat Glomerular Filtration Rate 3.6 mL/min (>60) Glucose Level 98 MG/DL (74-106) Calcium Level 9.5 MG/DL (8.5-10.1) Total Bilirubin 0.6 MG/DL (0.2-1.0) Aspartate Amino Transf (AST/SGOT) 35 U/L (15-37) Alanine Aminotransferase (ALT/SGPT) 24 U/L (12-78) Alkaline Phosphatase 135 U/L (46-116) H Total Protein 8.0 G/DL (6.4-8.2) Albumin 3.1 G/DL (3.4-5.0) L Globulin 4.9 g/dL Albumin/Globulin Ratio 0.6 (1.0-2.7) L Current Medications Medications (Trade) Dose Ordered Sig/Sarah Route PRN Reason Start Time Stop Time Status Last Admin Dose Admin Acetaminophen (Tylenol) 650 mg Q4H PRN ORAL Temp >100.5 / mild pain 1-3 06/23/19 23:00 07/23/19 22:59 06/27/19 08:17 Albuterol Sulfate (Proventil MDI) 2 puff Q4H PRN INH Shortness of Breath 06/23/19 23:00 09/21/19 22:59 Albuterol/ Ipratropium (Combivent Respimat) 1 puff Q6HRT INH 06/24/19 01:00 07/24/19 00:59 07/05/19 18:53 Amlodipine Besylate (Norvasc) 2.5 mg DAILY ORAL 07/01/19 09:00 07/31/19 08:59 07/03/19 09:58 Clonidine HCl (Catapres Tab) 0.1 mg Q4H PRN ORAL BP over 160 systolic 06/23/19 15:00 09/21/19 14:59 Guaifenesin/ Dextromethorphan (Robitussin DM Syrup) 10 ml Q4H PRN ORAL For Cough 06/23/19 23:00 09/21/19 22:59 06/27/19 20:42 Heparin Sodium (Porcine) (Heparin 5000 units/ml) 5,000 units EVERY 12 HOURS SUBQ 06/23/19 15:45 08/07/19 15:44 07/04/19 20:53 Loperamide HCl (Imodium) 2 mg TIDPRN PRN ORAL Diarrhea 06/25/19 12:45 07/25/19 12:44 07/05/19 18:56 Pantoprazole (Protonix) 40 mg BID ORAL 06/23/19 18:00 07/23/19 17:59 07/05/19 17:46 Sevelamer Carbonate (Renvela) 1,600 mg THREE TIMES A DAY ORAL 07/03/19 13:39 10/01/19 13:38 07/05/19 17:45 Shahab Arnett M.D. July 05, 2019 21:25
--- NOTE | 2019-07-05 21:36 | NUR ---
NURSE NOTES: Spoke with HD nurse and she will come around 4am.
--- NOTE | 2019-07-05 23:58 | Cardiology Progress Note ---
Assessment/Plan Assessment/Plan 1. Bilateral pulmonary edema with increased in brain natriuretic peptide most likely a component of end-stage renal disease and chronic heart failure with preserved ejection fraction. 2. End-stage renal disease. 3. COVID-19, bilateral pneumonia. 4. Hypertension, well controlled, continue amlodipine. 5. Diabetes mellitus. Continue aspirin and statins. Subjective Subjective No cardiac events reported. On NC O2 2 lit/min. Objective Last 24 Hour Vital Signs Date Time Temp Pulse Resp B/P (MAP) Pulse Ox O2 Delivery O2 Flow Rate FiO2 07/05/19 21:00 Nasal Cannula 2.0 07/05/19 20:00 98.0 83 20 123/76 (92) 95 07/05/19 16:00 97.8 73 18 131/74 (93) 99 07/05/19 12:00 97.8 99 18 130/80 (97) 98 07/05/19 09:00 Nasal Cannula 2.0 07/05/19 08:07 71 120/57 07/05/19 08:00 97.6 100 18 135/82 (99) 98 07/05/19 04:00 97.7 71 18 120/57 (78) 96 Intake and Output 07/04/19 07/05/19 19:00 07:00 Intake Total 200 ml Balance 200 ml Intake Oral 200 ml Laboratory Tests Test 07/05/19 05:00 White Blood Count 4.9 K/UL (4.8-10.8) Red Blood Count 4.31 M/UL (4.20-5.40) Hemoglobin 11.5 G/DL (12.0-16.0) L Hematocrit 36.4 % (37.0-47.0) L Mean Corpuscular Volume 84 FL (80-99) Mean Corpuscular Hemoglobin 26.8 PG (27.0-31.0) L Mean Corpuscular Hemoglobin Concent 31.7 G/DL (32.0-36.0) L Red Cell Distribution Width 16.5 % (11.6-14.8) H Platelet Count 248 K/UL (150-450) Mean Platelet Volume 8.5 FL (6.5-10.1) Neutrophils (%) (Auto) 74.0 % (45.0-75.0) Lymphocytes (%) (Auto) 13.2 % (20.0-45.0) L Monocytes (%) (Auto) 11.4 % (1.0-10.0) H Eosinophils (%) (Auto) 0.2 % (0.0-3.0) Basophils (%) (Auto) 1.3 % (0.0-2.0) Sodium Level 138 MMOL/L (136-145) Potassium Level 3.7 MMOL/L (3.5-5.1) Chloride Level 95 MMOL/L (98-107) L Carbon Dioxide Level 33 MMOL/L (21-32) H Anion Gap 10 mmol/L (5-15) Blood Urea Nitrogen 46 mg/dL (7-18) H Creatinine 11.7 MG/DL (0.55-1.30) H Estimat Glomerular Filtration Rate 3.6 mL/min (>60) Glucose Level 98 MG/DL (74-106) Calcium Level 9.5 MG/DL (8.5-10.1) Total Bilirubin 0.6 MG/DL (0.2-1.0) Aspartate Amino Transf (AST/SGOT) 35 U/L (15-37) Alanine Aminotransferase (ALT/SGPT) 24 U/L (12-78) Alkaline Phosphatase 135 U/L (46-116) H Total Protein 8.0 G/DL (6.4-8.2) Albumin 3.1 G/DL (3.4-5.0) L Globulin 4.9 g/dL Albumin/Globulin Ratio 0.6 (1.0-2.7) L Objective HEENT: Atraumatic and normocephalic. Anicteric. Pupils are equal, round, reactive to light and accommodation. Extraocular muscles intact. NECK: JVP less than 5 cm. No carotid bruit. Carotid upstroke is 2+ bilaterally. CVS: Normal S1, S2. Regular rate and rhythm. No murmurs, gallops, or rubs. PMI is at fourth intercostal space at the midclavicular line. LUNGS: Diminished breath sounds in both lungs with bibasilar crackles. ABDOMEN: Soft, nontender, nondistended. No hepatosplenomegaly. Positive bowel sounds. EXTREMITIES: No evidence of edema, clubbing, or cyanosis. Param No MD July 05, 2019 23:58
[2019-07-06] VITALS: BP 131/56
[2019-07-06 04:00] VITALS: BP 134/56
--- NOTE | 2019-07-06 06:10 | NUR ---
NURSE NOTES: HD is done. Pt is stable condition. Output 1L noted.
--- NOTE | 2019-07-06 07:12 | Hematology/Onc Progress Note ---
Assessment/Plan Assessment/Plan # Leukopenia on admission - with likely infection, bilateral pulmonary edema with increased in brain natriuretic peptide most likely a component of end- stage renal disease and chronic heart failure with preserved ejection fraction. --> hepatitis and hiv neg --> imaging reviewed, abd us from 3 years ago negative --> smear is noted --> meds have been reviewed --> neupogen sq as needed prn --> wbc trend 3.7-->6.6-->3.1->3.7->4.6->4.9 # Anemia likely due to End-stage renal disease --> very mild currently, hgb 12->11.7-->11.3 --> w/u as needed if lower # COVID-19, bilateral pneumonia. --> as per Id, Dr. Arnett on case --> iso, and droplet iso # History of hypertension, controlled with hydralazine --> per cards # Sepsis --> start vancomycin with azactam pending blood culture # ESRD (end stage renal disease) on dialysis --> continue hemodialysis --> renally dosed antibiotics # DM II (diabetes mellitus, type II), controlled --> recommend tight glycemic control to keep blood glucose between [id number] # Dvt ppx heparin sq Appreciate consultation and effie rn Subjective Constitutional: Denies: no symptoms, chills, fever, malaise, weakness, other Cardiovascular: Denies: no symptoms, chest pain, edema, irregular heart rate, lightheadedness, palpitations, syncope, other Respiratory: Denies: no symptoms, cough, shortness of breath, SOB with excertion, SOB at rest, sputum, wheezing, other Gastrointestinal/Abdominal: Denies: no symptoms, abdomen distended, abdominal pain, black stools, tarry stools, blood in stool, constipated, diarrhea, difficulty swallowing, nausea, poor appetite, poor fluid intake, rectal bleeding , vomiting, other Genitourinary: Denies: no symptoms, burning, discharge, frequency, flank pain, hematuria, incontinence, pain, urgency, other 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: Denies: no symptoms, anxiety, depressed, emotional problems, headache, numbness, paresthesia, pre-existing deficit, seizure, tingling, tremors, weakness, other Endocrine: Denies: no symptoms, excessive sweating, flushing, intolerance to cold, intolerance to heat, increased hunger, increased thirst, increased urine, unexplained weight gain, unexplained weight loss, other Allergies: Coded Allergies: PENICILLINS (Verified Allergy, Unknown, 01/30/17) hives 01/30/17: ITCHING WITH ZOSYN Subjective 06/27 mongolian speaking, to get hd, labs yesterday looked better, cbc has been ordered 06/28 tolerated hd well, no bleeding, labs noted, no night sweats 06/29 to get hd today, no bleeding, meds now, labs reviewed 06/30 no complaints, no bleeding, no night sweats 07/01 labs reviewed, no night sweats, meds reviewed, smear is noted 07/03 labs reviewed, no bleeding or chills, effie rn, no night sweats 07/04 as per renal for hd today, labs are noted, no bleeding 07/05 hd was done, on 2lnc, no bleeding, meds noted, no f Objective Objective Current Medications Medications (Trade) Dose Ordered Sig/Sarah Route PRN Reason Start Time Stop Time Status Last Admin Dose Admin Acetaminophen (Tylenol) 650 mg Q4H PRN ORAL Temp >100.5 / mild pain 1-3 06/23/19 23:00 07/23/19 22:59 06/27/19 08:17 Albuterol Sulfate (Proventil MDI) 2 puff Q4H PRN INH Shortness of Breath 06/23/19 23:00 09/21/19 22:59 Albuterol/ Ipratropium (Combivent Respimat) 1 puff Q6HRT INH 06/24/19 01:00 07/24/19 00:59 07/06/19 06:01 Amlodipine Besylate (Norvasc) 2.5 mg DAILY ORAL 07/01/19 09:00 07/31/19 08:59 07/03/19 09:58 Clonidine HCl (Catapres Tab) 0.1 mg Q4H PRN ORAL BP over 160 systolic 06/23/19 15:00 09/21/19 14:59 Guaifenesin/ Dextromethorphan (Robitussin DM Syrup) 10 ml Q4H PRN ORAL For Cough 06/23/19 23:00 09/21/19 22:59 06/27/19 20:42 Heparin Sodium (Porcine) (Heparin 5000 units/ml) 5,000 units EVERY 12 HOURS SUBQ 06/23/19 15:45 08/07/19 15:44 07/04/19 20:53 Loperamide HCl (Imodium) 2 mg TIDPRN PRN ORAL Diarrhea 06/25/19 12:45 07/25/19 12:44 07/05/19 18:56 Pantoprazole (Protonix) 40 mg BID ORAL 06/23/19 18:00 07/23/19 17:59 07/05/19 17:46 Sevelamer Carbonate (Renvela) 1,600 mg THREE TIMES A DAY ORAL 07/03/19 13:39 10/01/19 13:38 07/05/19 17:45 Last 24 Hour Vital Signs Date Time Temp Pulse Resp B/P (MAP) Pulse Ox O2 Delivery O2 Flow Rate FiO2 07/06/19 04:00 98.1 65 22 134/56 (82) 96 07/06/19 00:00 97.9 76 20 131/56 (81) 93 07/05/19 21:00 Nasal Cannula 2.0 07/05/19 20:00 98.0 83 20 123/76 (92) 95 07/05/19 16:00 97.8 73 18 131/74 (93) 99 07/05/19 12:00 97.8 99 18 130/80 (97) 98 07/05/19 09:00 Nasal Cannula 2.0 07/05/19 08:07 71 120/57 07/05/19 08:00 97.6 100 18 135/82 (99) 98 07/05/19 04:00 97.7 71 18 120/57 (78) 96 07/04/19 21:00 Nasal Cannula 2.0 07/04/19 20:00 98.1 76 18 118/61 (80) 96 07/04/19 16:00 98.2 82 18 127/65 (85) 96 07/04/19 12:00 97.9 79 17 115/60 (78) 95 07/04/19 09:00 Nasal Cannula 2.0 07/04/19 09:00 77 113/53 07/04/19 08:00 98.0 77 18 113/53 (73) 95 Intake and Output 07/05/19 07/06/19 19:00 07:00 Intake Total 610 ml Output Total 1000 ml Balance 610 ml -1000 ml Intake Oral 500 ml IV Total 110 ml Output Hemodialysis UF 1000 ml # Voids 1 Labs Test 07/04/19 04:00 07/05/19 05:00 07/06/19 04:45 White Blood Count 4.6 K/UL (4.8-10.8) 4.9 K/UL (4.8-10.8) Red Blood Count 4.33 M/UL (4.20-5.40) 4.31 M/UL (4.20-5.40) Hemoglobin 11.7 G/DL (12.0-16.0) 11.5 G/DL (12.0-16.0) Hematocrit 36.8 % (37.0-47.0) 36.4 % (37.0-47.0) Mean Corpuscular Volume 85 FL (80-99) 84 FL (80-99) Mean Corpuscular Hemoglobin 27.2 PG (27.0-31.0) 26.8 PG (27.0-31.0) Mean Corpuscular Hemoglobin Concent 31.9 G/DL (32.0-36.0) 31.7 G/DL (32.0-36.0) Red Cell Distribution Width 16.8 % (11.6-14.8) 16.5 % (11.6-14.8) Platelet Count 250 K/UL (150-450) 248 K/UL (150-450) Mean Platelet Volume 7.9 FL (6.5-10.1) 8.5 FL (6.5-10.1) Neutrophils (%) (Auto) 73.9 % (45.0-75.0) 74.0 % (45.0-75.0) Lymphocytes (%) (Auto) 13.1 % (20.0-45.0) 13.2 % (20.0-45.0) Monocytes (%) (Auto) 11.3 % (1.0-10.0) 11.4 % (1.0-10.0) Eosinophils (%) (Auto) 0.2 % (0.0-3.0) 0.2 % (0.0-3.0) Basophils (%) (Auto) 1.5 % (0.0-2.0) 1.3 % (0.0-2.0) Sodium Level 138 MMOL/L (136-145) Potassium Level 3.7 MMOL/L (3.5-5.1) Chloride Level 95 MMOL/L (98-107) Carbon Dioxide Level 33 MMOL/L (21-32) Anion Gap 10 mmol/L (5-15) Blood Urea Nitrogen 46 mg/dL (7-18) Creatinine 11.7 MG/DL (0.55-1.30) Estimat Glomerular Filtration Rate 3.6 mL/min (>60) Glucose Level 98 MG/DL (74-106) Calcium Level 9.5 MG/DL (8.5-10.1) Total Bilirubin 0.6 MG/DL (0.2-1.0) Aspartate Amino Transf (AST/SGOT) 35 U/L (15-37) Alanine Aminotransferase (ALT/SGPT) 24 U/L (12-78) Alkaline Phosphatase 135 U/L (46-116) Total Protein 8.0 G/DL (6.4-8.2) Albumin 3.1 G/DL (3.4-5.0) Globulin 4.9 g/dL Albumin/Globulin Ratio 0.6 (1.0-2.7) Height (Feet): 4 Height (Inches): 10.00 Weight (Pounds): 104 Objective Gen: nad, A+O x4 Puilm: ctab, no cwr CV: rrr, no mg Abd: soft, nt, nd Ext: no cce, right upper ext fistula++ Ray Lopez MD July 06, 2019 07:12
--- NOTE | 2019-07-06 07:36 | NUR ---
HAND-OFF: Report given to NITHIN Cho.
--- NOTE | 2019-07-06 07:40 | NUR ---
NURSE NOTES: Received patient in bed, awake, A&Ox4. Not in acute respiratory distress. Noted on and off non-productive cough. Afebrile, no wheezing or SOB @ this time. AV shunt on right upper arm with pressure dressing. S/P dialysis. No bleeding noted. Patient denies pain or discomfort. Call light and personnel items within reach. Patient is BRP. Bed is in lowest position and locked. Will continue plan of care.
[2019-07-06 07:48] LABS: ALANINE AMINOTRANSFERASE 24 U/L (12-78); ALBUMIN/GLOBULIN RATIO 0.6 (1.0-2.7); ALKALINE PHOSPHATASE 138 U/L (46-116); ANION GAP 14 mmol/L (5-15); ASPARTATE AMINO TRANSFERASE 29 U/L (15-37); BILIRUBIN,TOTAL 0.6 MG/DL (0.2-1.0); BLOOD UREA NITROGEN 51 mg/dL (7-18); CALCIUM 9.2 MG/DL (8.5-10.1); CARBON DIOXIDE 30 MMOL/L (21-32); CHLORIDE 96 MMOL/L (98-107); CREATININE 13.7 MG/DL (0.55-1.30); POTASSIUM 3.9 MMOL/L (3.5-5.1); SODIUM 140 MMOL/L (136-145)
--- NOTE | 2019-07-06 07:57 | Pulmonology Progress Note ---
Catherine Bryan ALIGNMENT SPECIALIST 07/06/19 0757: Assessment/Plan Assessment/Plan Problem List: * confirmed COVID-19 acute respiratory illness * bilateral PNA, probably HCAP due to CoVID * Mild transaminitis * ESRD on HD * E/lyte imbalance * HTN * Psychiatric disorder Plan: [facility] floor Close monitoring of respiratory status and oxygen needs * ID follow, abx as per ID;Vanco and Aztreonam-completed * completed Plaquenil 06/28 x 5 days - per ID recs * BCX 06/22 and 06/23 NGTD * SARS-CoV-2 by PCR 06/22 detected, on isolation (prior COVID infection was also confirmed by family) * CXR 06/24 - with bilateral mixed interstitial and airspace disease, slightly worse * CXR 06/27 - Mostly stable left-sided infiltrates, increasing right lung infiltrates, likely pneumonia, * CXR 06/30 -Bilateral infiltrates, overall stable versus perhaps slightly improved on the left, over 3 days * SCX if able * MDR with spacer prn * O2 titrate to keep sat above 90% * A/tussive prn * Monitor volumes, HD per renal * trend CRP, ferritin; , LDH : last CRP 20.5( trending down), ferritin 302 , LDH 440 * Check D dimer-1.27; * Monitor blood pressure, on Hydralazine currently * DVT prophylaxis * monitor volumes, HD as per nephro with close monitoring of renal parameters and lytes * more calm and cooperative * depending on disposition may need another CoVID testing * per ID can be removed from enhanced droplet isolation' * dc plan as per primary case discussed and evaluated by supervising physician Subjective ROS Limited/Unobtainable: No Gastrointestinal/Abdominal: Reports: no symptoms Psychiatric: Reports: no symptoms Skin: Reports: no symptoms Musculoskeletal: Reports: no symptoms Allergies: Coded Allergies: PENICILLINS (Verified Allergy, Unknown, 01/30/17) hives 01/30/17: ITCHING WITH ZOSYN Subjective on O2 2 L via NC pulse ox stable, no fevers CXR 06/30 noted, stable MELANIA-CoV-2 by PCR 06/22 + detected remains in isolation CRP trending down more compliant with treatment Objective Last 24 Hour Vital Signs Date Time Temp Pulse Resp B/P (MAP) Pulse Ox O2 Delivery O2 Flow Rate FiO2 07/06/19 04:00 98.1 65 22 134/56 (82) 96 07/06/19 00:00 97.9 76 20 131/56 (81) 93 07/05/19 21:00 Nasal Cannula 2.0 07/05/19 20:00 98.0 83 20 123/76 (92) 95 07/05/19 16:00 97.8 73 18 131/74 (93) 99 07/05/19 12:00 97.8 99 18 130/80 (97) 98 07/05/19 09:00 Nasal Cannula 2.0 07/05/19 08:07 71 120/57 07/05/19 08:00 97.6 100 18 135/82 (99) 98 Intake and Output 07/05/19 07/06/19 19:00 07:00 Intake Total 610 ml Output Total 1000 ml Balance 610 ml -1000 ml Intake Oral 500 ml IV Total 110 ml Output Hemodialysis UF 1000 ml # Voids 1 Objective General Appearance: no acute distress Tuvaluan speaking female ,anxious, HEENT: normocephalic, atraumatic, anicteric, mucous membranes moist, PERRL Respiratory/Chest: BS overall clear, no respiratory distress, no accessory muscle use Cardiovascular: normal rate, no JVD Abdomen: normal bowel sounds, soft, non tender, non distended Extremities: no edema, pedal pulses normal, AV fistula + thrill/bruit 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: alert, responsive Musculoskeletal: normal muscle bulk Laboratory Tests 07/06/19 04:45: Sodium Level 140, Potassium Level 3.9, Chloride Level 96L, Carbon Dioxide Level 30, Anion Gap 14, Blood Urea Nitrogen 51H, Creatinine 13.7H, Estimat Glomerular Filtration Rate 3.0, Glucose Level 81, Calcium Level 9.2, Total Bilirubin 0.6, Aspartate Amino Transf (AST/SGOT) 29, Alanine Aminotransferase (ALT/SGPT) 24, Alkaline Phosphatase 138H, Total Protein 7.7, Albumin 3.0L, Globulin 4.7, Albumin/Globulin Ratio 0.6L Current Medications Medications (Trade) Dose Ordered Sig/Sarah Route PRN Reason Start Time Stop Time Status Last Admin Dose Admin Acetaminophen (Tylenol) 650 mg Q4H PRN ORAL Temp >100.5 / mild pain 1-3 06/23/19 23:00 07/23/19 22:59 06/27/19 08:17 Albuterol Sulfate (Proventil MDI) 2 puff Q4H PRN INH Shortness of Breath 06/23/19 23:00 09/21/19 22:59 Albuterol/ Ipratropium (Combivent Respimat) 1 puff Q6HRT INH 06/24/19 01:00 07/24/19 00:59 07/06/19 06:01 Amlodipine Besylate (Norvasc) 2.5 mg DAILY ORAL 07/01/19 09:00 07/31/19 08:59 07/03/19 09:58 Clonidine HCl (Catapres Tab) 0.1 mg Q4H PRN ORAL BP over 160 systolic 06/23/19 15:00 09/21/19 14:59 Guaifenesin/ Dextromethorphan (Robitussin DM Syrup) 10 ml Q4H PRN ORAL For Cough 06/23/19 23:00 09/21/19 22:59 06/27/19 20:42 Heparin Sodium (Porcine) (Heparin 5000 units/ml) 5,000 units EVERY 12 HOURS SUBQ 06/23/19 15:45 08/07/19 15:44 07/04/19 20:53 Loperamide HCl (Imodium) 2 mg TIDPRN PRN ORAL Diarrhea 06/25/19 12:45 07/25/19 12:44 07/05/19 18:56 Pantoprazole (Protonix) 40 mg BID ORAL 06/23/19 18:00 07/23/19 17:59 07/05/19 17:46 Sevelamer Carbonate (Renvela) 1,600 mg THREE TIMES A DAY ORAL 07/03/19 13:39 10/01/19 13:38 07/05/19 17:45 Allan Morales MD 07/06/19 1206: Assessment/Plan Assessment/Plan Patient seen and examined with ALIGNMENT SPECIALIST, agree with above A&P as it reflects our joint deliberations. Subjective Allergies: Coded Allergies: PENICILLINS (Verified Allergy, Unknown, 01/30/17) hives 01/30/17: ITCHING WITH Catherine Barlow NP July 06, 2019 07:57 Allan Morales MD July 06, 2019 12:06
[2019-07-06 08:00] VITALS: BP 108/75
[2019-07-06] MEDS: Renvela 800mg Pkt ORAL SCH ×3 (09:19→18:02)
[2019-07-06] MEDS: Heparin 5000 units/ml inj SUBQ SCH ×2 (09:20→20:26)
--- NOTE | 2019-07-06 11:17 | NUR ---
*-* INSURANCE *-* UPDATED AVAILABLE CLINICALS HAVE BEEN FAXED TO: [facility] P: [phone] F: [phone] &- ALISA IRVIN:BRITTANY REF# [id number] P: [phone] F: [phone]
[2019-07-06 12:00] VITALS: BP 105/54
--- NOTE | 2019-07-06 13:48 | NUR ---
CASE MANAGEMENT:REVIEW SI;COVID-19 PNEUMONIA RESPIRATORY FAILURE. ESRD ON HD. 98.2 84 22 105/54 93% 2L NC BUN 51 CR 13.7 ALK PHOS 138 ALB 3.0 IS;COMBIVENT INH Q6 HRS PROVENTIL INH Q4 HRS PRN PROTONIX PO BID HEPARIN SUBQ Q12 HRS MED SURG STATUS DCP;PATIENT IS FROM HOME PLAN;PER ID, REQUIRES MIN OF 2 WEEK INPATIENT STAY
--- NOTE | 2019-07-06 13:50 | Nephrology Progress Note ---
Assessment/Plan Problem List: (1) Pneumonia (2) COVID-19 Assessment: CRP and LDH are elevated-ferritin and d-dimer are not elevated (3) ESRD (end stage renal disease) on dialysis (4) HTN (hypertension) Assessment COVID-19 infection/pneumonia End-stage renal disease on hemodialysis 3 times a week Hypertension Diabetes mellitus Plan management per ID Hemodialysis next July 06 Keep the blood pressure in check, Renal diet Subjective ROS Limited/Unobtainable: No Constitutional: Reports: malaise Objective Objective Last 24 Hour Vital Signs Date Time Temp Pulse Resp B/P (MAP) Pulse Ox O2 Delivery O2 Flow Rate FiO2 07/06/19 12:00 98.2 74 18 105/54 (71) 99 07/06/19 09:00 84 108/75 07/06/19 09:00 Nasal Cannula 2.0 07/06/19 08:00 97.5 84 18 108/75 (86) 99 07/06/19 04:00 98.1 65 22 134/56 (82) 96 07/06/19 00:00 97.9 76 20 131/56 (81) 93 07/05/19 21:00 Nasal Cannula 2.0 07/05/19 20:00 98.0 83 20 123/76 (92) 95 07/05/19 16:00 97.8 73 18 131/74 (93) 99 Intake and Output 07/05/19 07/06/19 19:00 07:00 Intake Total 610 ml Output Total 1000 ml Balance 610 ml -1000 ml Intake Oral 500 ml IV Total 110 ml Output Hemodialysis UF 1000 ml # Voids 1 Laboratory Tests 07/06/19 04:45: Sodium Level 140, Potassium Level 3.9, Chloride Level 96L, Carbon Dioxide Level 30, Anion Gap 14, Blood Urea Nitrogen 51H, Creatinine 13.7H, Estimat Glomerular Filtration Rate 3.0, Glucose Level 81, Calcium Level 9.2, Total Bilirubin 0.6, Aspartate Amino Transf (AST/SGOT) 29, Alanine Aminotransferase (ALT/SGPT) 24, Alkaline Phosphatase 138H, Total Protein 7.7, Albumin 3.0L, Globulin 4.7, Albumin/Globulin Ratio 0.6L Height (Feet): 4 Height (Inches): 10.00 Weight (Pounds): 99 General Appearance: no apparent distress Objective No change Rufus Mo MD July 06, 2019 13:50
[2019-07-06 16:00] VITALS: BP 102/57
--- NOTE | 2019-07-06 16:00 | NUR ---
NURSE NOTES: dialysis nurse Jeremy is aware of dialysis for tomorrow.
--- NOTE | 2019-07-06 18:00 | NUR ---
NURSE NOTES: patient is stable, denies pain or discomfort.
--- NOTE | 2019-07-06 19:17 | NUR ---
HAND-OFF: Report given to Manuel and endorsed plan of care.
--- NOTE | 2019-07-06 19:30 | NUR ---
NURSE NOTES: Patient in bed, on nasal cannula @2LPM, no complaint of pain at this time. AV shunt dry, no bleeding noted. Safety measures applied. Will continue plan of care.
[2019-07-06 20:00] VITALS: BP 120/55
--- NOTE | 2019-07-06 21:22 | NUR ---
NURSE NOTES: Spoke with county supervisor Susanna Morris about Covid test kit. Per county supervisor she doesn't have it, not available in the nursing office and only [facility] has it.
--- NOTE | 2019-07-06 21:39 | Infectious Diseases Prog Note ---
Assessment/Plan Problems: (1) PNA (pneumonia) Assessment & Plan: superimposed with COVID 19 infection, S/P vancomycin and aztreonam empirically for 10 days . 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 may remove from enhanced droplet isolation. (3) Fever Assessment & Plan: suspect due to the above , IMPROVING , continue Tylenol as needed (4) Sepsis Assessment & Plan: due to the above resolved , S/P vancomycin with azactam to cover for pneumonia for 10 days , blood culture x 2 is negative (5) ESRD (end stage renal disease) on dialysis Assessment & Plan: continue hemodialysis and renally dosed antibiotics as per pharmacy (6) DM II (diabetes mellitus, type II), controlled Assessment & Plan: recommend tight glycemic control to keep blood glucose between [id number] Subjective Constitutional: Reports: no symptoms HEENT: Reports: no symptoms Respiratory: Reports: no symptoms Breasts: Reports: no symptoms Cardiovascular: Reports: no symptoms Gastrointestinal/Abdominal: Reports: no symptoms Genitourinary: Reports: no symptoms Neurologic: Reports: no symptoms Psychiatric: Reports: no symptoms Skin: Reports: no symptoms Endocrine: Reports: no symptoms Hematologic: Reports: no symptoms Musculoskeletal: Reports: no symptoms Allergies: Coded Allergies: PENICILLINS (Verified Allergy, Unknown, 01/30/17) hives 01/30/17: ITCHING WITH ZOSYN Objective Vital Signs Last 24 Hour Vital Signs Date Time Temp Pulse Resp B/P (MAP) Pulse Ox O2 Delivery O2 Flow Rate FiO2 07/06/19 16:00 98.6 78 18 102/57 (72) 97 07/06/19 12:00 98.2 74 18 105/54 (71) 99 07/06/19 09:00 84 108/75 07/06/19 09:00 Nasal Cannula 2.0 07/06/19 08:00 97.5 84 18 108/75 (86) 99 07/06/19 04:00 98.1 65 22 134/56 (82) 96 07/06/19 00:00 97.9 76 20 131/56 (81) 93 Height (Feet): 4 Height (Inches): 10.00 Weight (Pounds): 99 General Appearance: WD/WN, no acute distress HEENT: normocephalic, atraumatic, anicteric, mucous membranes moist, PERRL Respiratory/Chest: chest wall non-tender, lungs clear, normal breath sounds, no respiratory distress, no accessory muscle use Cardiovascular: normal peripheral pulses, normal rate, regular rhythm, no gallop/murmur, no JVD Abdomen: normal bowel sounds, soft, non tender, no organomegaly, non distended , no mass, no scars Genitourinary: normal external genitalia Extremities: no cyanosis, no clubbing Skin: no rash, no lesions, no ulcers 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: ornament setter II-XII grossly normal, no motor/sensory deficits, alert, oriented x 3, responsive Lymphatic: no neck adenopathy, no groin adenopathy Musculoskeletal: normal muscle bulk, no effusion Laboratory Tests Test 07/06/19 04:45 Sodium Level 140 MMOL/L (136-145) Potassium Level 3.9 MMOL/L (3.5-5.1) Chloride Level 96 MMOL/L (98-107) L Carbon Dioxide Level 30 MMOL/L (21-32) Anion Gap 14 mmol/L (5-15) Blood Urea Nitrogen 51 mg/dL (7-18) H Creatinine 13.7 MG/DL (0.55-1.30) H Estimat Glomerular Filtration Rate 3.0 mL/min (>60) Glucose Level 81 MG/DL (74-106) Calcium Level 9.2 MG/DL (8.5-10.1) Total Bilirubin 0.6 MG/DL (0.2-1.0) Aspartate Amino Transf (AST/SGOT) 29 U/L (15-37) Alanine Aminotransferase (ALT/SGPT) 24 U/L (12-78) Alkaline Phosphatase 138 U/L (46-116) H Total Protein 7.7 G/DL (6.4-8.2) Albumin 3.0 G/DL (3.4-5.0) L Globulin 4.7 g/dL Albumin/Globulin Ratio 0.6 (1.0-2.7) L Current Medications Medications (Trade) Dose Ordered Sig/Sarah Route PRN Reason Start Time Stop Time Status Last Admin Dose Admin Acetaminophen (Tylenol) 650 mg Q4H PRN ORAL Temp >100.5 / mild pain 1-3 06/23/19 23:00 07/23/19 22:59 06/27/19 08:17 Albuterol Sulfate (Proventil MDI) 2 puff Q4H PRN INH Shortness of Breath 06/23/19 23:00 09/21/19 22:59 Albuterol/ Ipratropium (Combivent Respimat) 1 puff Q6HRT INH 06/24/19 01:00 07/24/19 00:59 07/06/19 18:02 Amlodipine Besylate (Norvasc) 2.5 mg DAILY ORAL 07/01/19 09:00 07/31/19 08:59 07/03/19 09:58 Clonidine HCl (Catapres Tab) 0.1 mg Q4H PRN ORAL BP over 160 systolic 06/23/19 15:00 09/21/19 14:59 Guaifenesin/ Dextromethorphan (Robitussin DM Syrup) 10 ml Q4H PRN ORAL For Cough 06/23/19 23:00 09/21/19 22:59 06/27/19 20:42 Heparin Sodium (Porcine) (Heparin 5000 units/ml) 5,000 units EVERY 12 HOURS SUBQ 06/23/19 15:45 08/07/19 15:44 07/06/19 20:26 Loperamide HCl (Imodium) 2 mg TIDPRN PRN ORAL Diarrhea 06/25/19 12:45 07/25/19 12:44 07/05/19 18:56 Pantoprazole (Protonix) 40 mg BID ORAL 06/23/19 18:00 07/23/19 17:59 07/06/19 18:01 Sevelamer Carbonate (Renvela) 1,600 mg THREE TIMES A DAY ORAL 07/03/19 13:39 10/01/19 13:38 07/06/19 18:02 Shahab Arnett M.D. July 06, 2019 21:39
--- NOTE | 2019-07-06 23:40 | Cardiology Progress Note ---
Assessment/Plan Assessment/Plan 1. Bilateral pulmonary edema with increased in brain natriuretic peptide most likely a component of end-stage renal disease and chronic heart failure with preserved ejection fraction. 2. End-stage renal disease. 3. COVID-19, bilateral pneumonia. 4. Hypertension, well controlled, continue amlodipine. 5. Diabetes mellitus. Continue aspirin and statins. Subjective Subjective No cardiac events reported. On NC O2 2 lit/min. Objective Last 24 Hour Vital Signs Date Time Temp Pulse Resp B/P (MAP) Pulse Ox O2 Delivery O2 Flow Rate FiO2 07/06/19 21:00 Nasal Cannula 2.0 07/06/19 20:00 98.2 74 20 120/55 (76) 97 07/06/19 16:00 98.6 78 18 102/57 (72) 97 07/06/19 12:00 98.2 74 18 105/54 (71) 99 07/06/19 09:00 84 108/75 07/06/19 09:00 Nasal Cannula 2.0 07/06/19 08:00 97.5 84 18 108/75 (86) 99 07/06/19 04:00 98.1 65 22 134/56 (82) 96 07/06/19 00:00 97.9 76 20 131/56 (81) 93 Intake and Output 07/05/19 07/06/19 19:00 07:00 Intake Total 610 ml Output Total 1000 ml Balance 610 ml -1000 ml Intake Oral 500 ml IV Total 110 ml Output Hemodialysis UF 1000 ml # Voids 1 Laboratory Tests Test 07/06/19 04:45 Sodium Level 140 MMOL/L (136-145) Potassium Level 3.9 MMOL/L (3.5-5.1) Chloride Level 96 MMOL/L (98-107) L Carbon Dioxide Level 30 MMOL/L (21-32) Anion Gap 14 mmol/L (5-15) Blood Urea Nitrogen 51 mg/dL (7-18) H Creatinine 13.7 MG/DL (0.55-1.30) H Estimat Glomerular Filtration Rate 3.0 mL/min (>60) Glucose Level 81 MG/DL (74-106) Calcium Level 9.2 MG/DL (8.5-10.1) Total Bilirubin 0.6 MG/DL (0.2-1.0) Aspartate Amino Transf (AST/SGOT) 29 U/L (15-37) Alanine Aminotransferase (ALT/SGPT) 24 U/L (12-78) Alkaline Phosphatase 138 U/L (46-116) H Total Protein 7.7 G/DL (6.4-8.2) Albumin 3.0 G/DL (3.4-5.0) L Globulin 4.7 g/dL Albumin/Globulin Ratio 0.6 (1.0-2.7) L Objective HEENT: Atraumatic and normocephalic. Anicteric. Pupils are equal, round, reactive to light and accommodation. Extraocular muscles intact. NECK: JVP less than 5 cm. No carotid bruit. Carotid upstroke is 2+ bilaterally. CVS: Normal S1, S2. Regular rate and rhythm. No murmurs, gallops, or rubs. PMI is at fourth intercostal space at the midclavicular line. LUNGS: Diminished breath sounds in both lungs with bibasilar crackles. ABDOMEN: Soft, nontender, nondistended. No hepatosplenomegaly. Positive bowel sounds. EXTREMITIES: No evidence of edema, clubbing, or cyanosis. Param No MD July 06, 2019 23:40
[2019-07-07] VITALS (7 sets, daily range): BP systolic 104–135; BP diastolic 55–67
--- NOTE | 2019-07-07 07:10 | NUR ---
HAND-OFF: Report given to NITHIN Cho and NITHIN Bauer.
--- NOTE | 2019-07-07 07:15 | NUR ---
NURSE NOTES: Received patient in bed, awake, A&Ox4. Not in acute respiratory distress. Noted on and off non-productive cough. Afebrile, no wheezing or SOB @ this time. Dialysis is in progress. Patient denies pain or discomfort. Call light and personnel items within reach. Bed is in lowest position and locked. Will continue plan of care.
[2019-07-07 07:17] LABS: ALANINE AMINOTRANSFERASE 23 U/L (12-78); ALBUMIN 3.2 G/DL (3.4-5.0); ALBUMIN/GLOBULIN RATIO 0.7 (1.0-2.7); ALKALINE PHOSPHATASE 148 U/L (46-116); ANION GAP 10 mmol/L (5-15); ASPARTATE AMINO TRANSFERASE 29 U/L (15-37); BILIRUBIN,TOTAL 0.6 MG/DL (0.2-1.0); BLOOD UREA NITROGEN 30 mg/dL (7-18); CALCIUM 9.7 MG/DL (8.5-10.1); CARBON DIOXIDE 29 MMOL/L (21-32); CHLORIDE 101 MMOL/L (98-107); CREATININE 9.9 MG/DL (0.55-1.30); POTASSIUM 4.3 MMOL/L (3.5-5.1); SODIUM 140 MMOL/L (136-145)
--- NOTE | 2019-07-07 07:43 | NUR ---
NURSE NOTES: Patient is s/p HD. 1L was removed per dialysis nurse from [facility] and Covid -19 swab was done and sent it to lab.
[2019-07-07] MEDS: Renvela 800mg Pkt ORAL SCH ×3 (08:16→17:25)
--- NOTE | 2019-07-07 08:40 | NUR ---
NURSE NOTES: Held blood pressure meds due to decreased BP and patient refused heparin SQ and RN re-educated on medication and patient fully understood but refused x3 stating" Too much injection." RN explained the risks and benefits. Patient's BP is 87/54,pulse is 93,o2sat is 95%, patient is awake, denies SOB or chest pain but feels little dizzy. placed patient to trendelenburg position. Call light within reach, bed alarm is on ,reminded patient to call RN if needed. Will rechecked.
[2019-07-07] MEDS: Heparin 5000 units/ml inj SUBQ SCH ×2 (09:00→20:16)
--- NOTE | 2019-07-07 09:45 | NUR ---
NURSE NOTES: Rechecked blood pressure earlier and it was 95/50 and pulse 91, still dizzy and complains of cramp on her left toes, able to move without pain but discomfort. Paged Dr. Mo and relayed patient's condition with new order to give albumin 5% bolusx1. Noted and carried out and started albumin bolus as ordered. Will continue to monitor.
--- NOTE | 2019-07-07 09:57 | NUR ---
RD ASSESSMENT & RECOMMENDATIONS SEE CARE ACTIVITY FOR COMPLETE ASSESSMENT DAILY ESTIMATED NEEDS: Needs based on ESRD on HD, 49kg 30-35 kcals/kg 0549-8503 total kcals 1.2-1.8 g protein/kg 59-88 g total protein Fluid per MD, on HD NUTRITION DIAGNOSIS: Increased kcal and protein needs R/T renal dysfunction as evidenced by pt w/ ESRD on HD w/ elev BUN, Cr. PO DIET RECOMMENDATIONS: Renal diet ADDITIONAL RECOMMENDATIONS: 1) High protein snacks BID + nepro qdaily 2) Maintain calibrated bed scale wts daily 3) Bowel regimen, monitor for bm (last 2 days ago, rec to dc imodium) . .
[2019-07-07] MEDS ORDERED: Albumin Human 5% 250ml IV SCH (10:00)
--- NOTE | 2019-07-07 10:07 | NUR ---
NURSE NOTES: RN received some more orders from Dr. Waller.
--- NOTE | 2019-07-07 10:45 | NUR ---
NURSE NOTES: Patient's blood pressure is 104/59 and pulse rate is 82. Patient denies SOB, chest pain,cramp on left foot or dizziness. Will continue to monitor. Reminded patient to call nurses if needed.
--- NOTE | 2019-07-07 11:30 | Hematology/Onc Progress Note ---
Assessment/Plan Assessment/Plan # Leukopenia on admission - with likely infection, bilateral pulmonary edema with increased in brain natriuretic peptide most likely a component of end- stage renal disease and chronic heart failure with preserved ejection fraction. --> hepatitis and hiv neg --> imaging reviewed, abd us from 3 years ago negative --> smear is noted --> meds have been reviewed --> neupogen sq as needed prn --> wbc trend 3.7-->6.6-->3.1->3.7->4.6->4.9 # Anemia likely due to End-stage renal disease --> very mild currently, hgb 12->11.7-->11.3 --> w/u as needed if lower # COVID-19, bilateral pneumonia. --> as per Id, Dr. Arnett on case --> iso, and droplet iso # History of hypertension, controlled with hydralazine --> per cards # Sepsis --> start vancomycin with azactam pending blood culture # ESRD (end stage renal disease) on dialysis --> continue hemodialysis --> renally dosed antibiotics # DM II (diabetes mellitus, type II), controlled --> recommend tight glycemic control to keep blood glucose between [id number] # Dvt ppx heparin sq Appreciate consultation and effie rn Subjective Allergies: Coded Allergies: PENICILLINS (Verified Allergy, Unknown, 01/30/17) hives 01/30/17: ITCHING WITH ZOSYN Subjective 06/27 estonian speaking, to get hd, labs yesterday looked better, cbc has been ordered 06/28 tolerated hd well, no bleeding, labs noted, no night sweats 06/29 to get hd today, no bleeding, meds now, labs reviewed 06/30 no complaints, no bleeding, no night sweats 07/01 labs reviewed, no night sweats, meds reviewed, smear is noted 07/03 labs reviewed, no bleeding or chills, effie rn, no night sweats 07/04 as per renal for hd today, labs are noted, no bleeding 07/05 hd was done, on 2lnc, no bleeding, meds noted 07/06 awake, no acute events, no labs, no sob, albumin Objective Objective Current Medications Medications (Trade) Dose Ordered Sig/Sarah Route PRN Reason Start Time Stop Time Status Last Admin Dose Admin Acetaminophen (Tylenol) 650 mg Q4H PRN ORAL Temp >100.5 / mild pain 1-3 06/23/19 23:00 07/23/19 22:59 06/27/19 08:17 Albumin Human (Albuminar-5) 250 ml ONCE IV 07/07/19 10:00 07/07/19 12:00 07/07/19 09:32 Albuterol Sulfate (Proventil MDI) 2 puff Q4H PRN INH Shortness of Breath 06/23/19 23:00 09/21/19 22:59 Albuterol/ Ipratropium (Combivent Respimat) 1 puff Q6HRT INH 06/24/19 01:00 07/24/19 00:59 07/07/19 07:00 Amlodipine Besylate (Norvasc) 2.5 mg DAILY ORAL 07/01/19 09:00 07/31/19 08:59 07/03/19 09:58 Clonidine HCl (Catapres Tab) 0.1 mg Q4H PRN ORAL BP over 160 systolic 06/23/19 15:00 09/21/19 14:59 Guaifenesin/ Dextromethorphan (Robitussin DM Syrup) 10 ml Q4H PRN ORAL For Cough 06/23/19 23:00 09/21/19 22:59 06/27/19 20:42 Heparin Sodium (Porcine) (Heparin 5000 units/ml) 5,000 units EVERY 12 HOURS SUBQ 06/23/19 15:45 08/07/19 15:44 07/06/19 20:26 Loperamide HCl (Imodium) 2 mg TIDPRN PRN ORAL Diarrhea 06/25/19 12:45 07/25/19 12:44 07/05/19 18:56 Pantoprazole (Protonix) 40 mg BID ORAL 06/23/19 18:00 07/23/19 17:59 07/07/19 08:15 Sevelamer Carbonate (Renvela) 1,600 mg THREE TIMES A DAY ORAL 07/03/19 13:39 10/01/19 13:38 07/07/19 08:16 Last 24 Hour Vital Signs Date Time Temp Pulse Resp B/P (MAP) Pulse Ox O2 Delivery O2 Flow Rate FiO2 07/07/19 09:00 91 95/50 07/07/19 09:00 Nasal Cannula 2.0 07/07/19 08:00 98.2 74 20 120/55 (76) 97 07/07/19 04:00 97.6 65 18 114/60 (78) 95 07/07/19 00:00 97.9 71 22 135/67 (89) 99 07/06/19 21:00 Nasal Cannula 2.0 07/06/19 20:00 98.2 74 20 120/55 (76) 97 07/06/19 16:00 98.6 78 18 102/57 (72) 97 07/06/19 12:00 98.2 74 18 105/54 (71) 99 07/06/19 09:00 84 108/75 07/06/19 09:00 Nasal Cannula 2.0 07/06/19 08:00 97.5 84 18 108/75 (86) 99 07/06/19 04:00 98.1 65 22 134/56 (82) 96 07/06/19 00:00 97.9 76 20 131/56 (81) 93 07/05/19 21:00 Nasal Cannula 2.0 07/05/19 20:00 98.0 83 20 123/76 (92) 95 07/05/19 16:00 97.8 73 18 131/74 (93) 99 07/05/19 12:00 97.8 99 18 130/80 (97) 98 Intake and Output 07/06/19 07/07/19 19:00 07:00 Intake Total 596 ml 118 ml Balance 596 ml 118 ml Intake Oral 596 ml Other 118 ml # Voids 1 Labs Test 07/05/19 05:00 07/06/19 04:45 07/07/19 04:00 White Blood Count 4.9 K/UL (4.8-10.8) Red Blood Count 4.31 M/UL (4.20-5.40) Hemoglobin 11.5 G/DL (12.0-16.0) Hematocrit 36.4 % (37.0-47.0) Mean Corpuscular Volume 84 FL (80-99) Mean Corpuscular Hemoglobin 26.8 PG (27.0-31.0) Mean Corpuscular Hemoglobin Concent 31.7 G/DL (32.0-36.0) Red Cell Distribution Width 16.5 % (11.6-14.8) Platelet Count 248 K/UL (150-450) Mean Platelet Volume 8.5 FL (6.5-10.1) Neutrophils (%) (Auto) 74.0 % (45.0-75.0) Lymphocytes (%) (Auto) 13.2 % (20.0-45.0) Monocytes (%) (Auto) 11.4 % (1.0-10.0) Eosinophils (%) (Auto) 0.2 % (0.0-3.0) Basophils (%) (Auto) 1.3 % (0.0-2.0) Sodium Level 138 MMOL/L (136-145) 140 MMOL/L (136-145) 140 MMOL/L (136-145) Potassium Level 3.7 MMOL/L (3.5-5.1) 3.9 MMOL/L (3.5-5.1) 4.3 MMOL/L (3.5-5.1) Chloride Level 95 MMOL/L (98-107) 96 MMOL/L (98-107) 101 MMOL/L (98-107) Carbon Dioxide Level 33 MMOL/L (21-32) 30 MMOL/L (21-32) 29 MMOL/L (21-32) Anion Gap 10 mmol/L (5-15) 14 mmol/L (5-15) 10 mmol/L (5-15) Blood Urea Nitrogen 46 mg/dL (7-18) 51 mg/dL (7-18) 30 mg/dL (7-18) Creatinine 11.7 MG/DL (0.55-1.30) 13.7 MG/DL (0.55-1.30) 9.9 MG/DL (0.55-1.30) Estimat Glomerular Filtration Rate 3.6 mL/min (>60) 3.0 mL/min (>60) 4.3 mL/min (>60) Glucose Level 98 MG/DL (74-106) 81 MG/DL (74-106) 84 MG/DL (74-106) Calcium Level 9.5 MG/DL (8.5-10.1) 9.2 MG/DL (8.5-10.1) 9.7 MG/DL (8.5-10.1) Total Bilirubin 0.6 MG/DL (0.2-1.0) 0.6 MG/DL (0.2-1.0) 0.6 MG/DL (0.2-1.0) Aspartate Amino Transf (AST/SGOT) 35 U/L (15-37) 29 U/L (15-37) 29 U/L (15-37) Alanine Aminotransferase (ALT/SGPT) 24 U/L (12-78) 24 U/L (12-78) 23 U/L (12-78) Alkaline Phosphatase 135 U/L (46-116) 138 U/L (46-116) 148 U/L (46-116) Total Protein 8.0 G/DL (6.4-8.2) 7.7 G/DL (6.4-8.2) 8.0 G/DL (6.4-8.2) Albumin 3.1 G/DL (3.4-5.0) 3.0 G/DL (3.4-5.0) 3.2 G/DL (3.4-5.0) Globulin 4.9 g/dL 4.7 g/dL 4.8 g/dL Albumin/Globulin Ratio 0.6 (1.0-2.7) 0.6 (1.0-2.7) 0.7 (1.0-2.7) Height (Feet): 4 Height (Inches): 10.00 Weight (Pounds): 102 Objective Gen: nad, A+O x4 Puilm: ctab, no cwr, nc+ CV: rrr, no mg Abd: soft, nt, nd Ext: no cce, right upper ext fistula++ Ray Lopez MD July 07, 2019 11:30
[2019-07-07 11:36] LABS: HEMATOCRIT 35.7 % (37.0-47.0); MEAN CORPUSCULAR VOLUME 87 FL (80-99); PLATELET COUNT 217 K/UL (150-450); RED BLOOD COUNT 4.12 M/UL (4.20-5.40); RED CELL DISTRIBUTION WIDTH 16.4 % (11.6-14.8); WHITE BLOOD COUNT 4.7 K/UL (4.8-10.8)
--- NOTE | 2019-07-07 11:39 | NUR ---
*-* INSURANCE *-* UPDATED AVAILABLE CLINICALS HAVE BEEN FAXED TO: [facility] P: [phone] F: [phone] &- ALISA IRVIN:BRITTANY REF# [id number] P: [phone] F: [phone]
--- NOTE | 2019-07-07 12:28 | General Progress Note ---
Assessment/Plan Status: stable Assessment/Plan: S: I am feeling better O: appears comfortable. mild sob PHYSICAL EXAMINATION: HEAD AND NECK: Atraumatic and normocephalic. CHEST: Diffuse bronchial breathing sounds. HEART: S1, S2. Regular rate and rhythm. ABDOMEN: Soft. No organomegaly. MUSCULOSKELETAL: Positive for the right lesly with AV graft in place. NEUROLOGY: Awake, alert, oriented x3. LABORATORY DATA: Dated July 05 reviewed Meds: reviewed and reconciled ASSESSMENT: 1. Pneumonia secondary to COVID-19. 2. Hypoxemic respiratory failure. Continue with nasal oxygen. 3. End-stage renal disease, on hemodialysis. 4. Abnormal blood sugar. 5. Hypertension. 6. Hypothyroidism. 7. GI and DVT prophylaxis. PLAN OF CARE: DC Heparin SCD continue Hydroxychloroquine Notes from ID and pulmonary reviewed c/w empirical abx to cover possible superimposed bacterial PNA Following completion of the two weeks isolation . patient may return home and continue remainder of isolation Given the episode of hypotension , will run STAT Lab order. One Bolus of NS. DC Amlodipin Subjective Allergies: Coded Allergies: PENICILLINS (Verified Allergy, Unknown, 01/30/17) hives 01/30/17: ITCHING WITH ZOSYN Objective Last 24 Hour Vital Signs Date Time Temp Pulse Resp B/P (MAP) Pulse Ox O2 Delivery O2 Flow Rate FiO2 07/07/19 12:00 97.3 72 18 116/67 (83) 98 07/07/19 10:45 104/59 (74) 07/07/19 09:00 91 95/50 07/07/19 09:00 Nasal Cannula 2.0 07/07/19 08:00 98.2 74 20 120/55 (76) 97 07/07/19 04:00 97.6 65 18 114/60 (78) 95 07/07/19 00:00 97.9 71 22 135/67 (89) 99 07/06/19 21:00 Nasal Cannula 2.0 07/06/19 20:00 98.2 74 20 120/55 (76) 97 07/06/19 16:00 98.6 78 18 102/57 (72) 97 Intake and Output 07/06/19 07/07/19 19:00 07:00 Intake Total 596 ml 118 ml Balance 596 ml 118 ml Intake Oral 596 ml Other 118 ml # Voids 1 Laboratory Tests 07/07/19 04:00: White Blood Count 4.7L, Red Blood Count 4.12L, Hemoglobin 11.0L, Hematocrit 35.7L, Mean Corpuscular Volume 87, Mean Corpuscular Hemoglobin 26.6L, Mean Corpuscular Hemoglobin Concent 30.7L, Red Cell Distribution Width 16.4H, Platelet Count 217, Mean Platelet Volume 7.3, Neutrophils (%) (Auto) , Lymphocytes (%) (Auto) , Monocytes (%) (Auto) , Eosinophils (%) (Auto) , Basophils (%) (Auto) , Neutrophils % (Manual) [Pending], Lymphocytes % (Manual) [Pending], Platelet Estimate [Pending], Platelet Morphology [Pending], Sodium Level 140, Potassium Level 4.3, Chloride Level 101, Carbon Dioxide Level 29, Anion Gap 10, Blood Urea Nitrogen 30H, Creatinine 9.9H, Estimat Glomerular Filtration Rate 4.3, Glucose Level 84, Calcium Level 9.7, Magnesium Level 2.7H, Total Bilirubin 0.6, Aspartate Amino Transf (AST/SGOT) 29, Alanine Aminotransferase (ALT/SGPT) 23, Alkaline Phosphatase 148H, Troponin I [Pending] , Total Protein 8.0, Albumin 3.2L, Globulin 4.8, Albumin/Globulin Ratio 0.7L Height (Feet): 4 Height (Inches): 10.00 Weight (Pounds): 102 Wally Waller MD July 07, 2019 12:28
--- NOTE | 2019-07-07 13:06 | Nephrology Progress Note ---
Assessment/Plan Problem List: (1) Pneumonia (2) COVID-19 Assessment: CRP and LDH are elevated-ferritin and d-dimer are not elevated (3) ESRD (end stage renal disease) on dialysis (4) HTN (hypertension) Assessment COVID-19 infection/pneumonia End-stage renal disease on hemodialysis 3 times a week Hypertension Diabetes mellitus Plan Patient received dialysis July 06 experienced hypotension was given albumin bolus management of infection per ID Repeat chest x-ray today is pending Keep the blood pressure in check, Renal diet Next dialysis will be arranged for her July 09 unless she needs it earlier Subjective ROS Limited/Unobtainable: No Constitutional: Reports: malaise Objective Objective Last 24 Hour Vital Signs Date Time Temp Pulse Resp B/P (MAP) Pulse Ox O2 Delivery O2 Flow Rate FiO2 07/07/19 12:00 97.3 72 18 116/67 (83) 98 07/07/19 10:45 104/59 (74) 07/07/19 09:00 91 95/50 07/07/19 09:00 Nasal Cannula 2.0 07/07/19 08:00 98.2 74 20 120/55 (76) 97 07/07/19 04:00 97.6 65 18 114/60 (78) 95 07/07/19 00:00 97.9 71 22 135/67 (89) 99 07/06/19 21:00 Nasal Cannula 2.0 07/06/19 20:00 98.2 74 20 120/55 (76) 97 07/06/19 16:00 98.6 78 18 102/57 (72) 97 Intake and Output 07/06/19 07/07/19 19:00 07:00 Intake Total 596 ml 118 ml Balance 596 ml 118 ml Intake Oral 596 ml Other 118 ml # Voids 1 Laboratory Tests 07/07/19 04:00: White Blood Count 4.7L, Red Blood Count 4.12L, Hemoglobin 11.0L, Hematocrit 35.7L, Mean Corpuscular Volume 87, Mean Corpuscular Hemoglobin 26.6L, Mean Corpuscular Hemoglobin Concent 30.7L, Red Cell Distribution Width 16.4H, Platelet Count 217, Mean Platelet Volume 7.3, Neutrophils (%) (Auto) , Lymphocytes (%) (Auto) , Monocytes (%) (Auto) , Eosinophils (%) (Auto) , Basophils (%) (Auto) , Neutrophils % (Manual) [Pending], Lymphocytes % (Manual) [Pending], Platelet Estimate [Pending], Platelet Morphology [Pending], Sodium Level 140, Potassium Level 4.3, Chloride Level 101, Carbon Dioxide Level 29, Anion Gap 10, Blood Urea Nitrogen 30H, Creatinine 9.9H, Estimat Glomerular Filtration Rate 4.3, Glucose Level 84, Calcium Level 9.7, Magnesium Level 2.7H, Total Bilirubin 0.6, Aspartate Amino Transf (AST/SGOT) 29, Alanine Aminotransferase (ALT/SGPT) 23, Alkaline Phosphatase 148H, Troponin I 0.004, Total Protein 8.0, Albumin 3.2L, Globulin 4.8, Albumin/Globulin Ratio 0.7L Height (Feet): 4 Height (Inches): 10.00 Weight (Pounds): 102 General Appearance: no apparent distress Cardiovascular: normal rate Respiratory/Chest: decreased breath sounds Objective No change Rufus Mo MD July 07, 2019 13:06
--- NOTE | 2019-07-07 14:00 | Pulmonology Progress Note ---
Catherine Bryan CLAIMS ASSOCIATE 07/07/19 1400: Assessment/Plan Assessment/Plan Problem List: * confirmed COVID-19 acute respiratory illness * bilateral PNA, probably HCAP due to CoVID * Mild transaminitis * ESRD on HD * E/lyte imbalance * HTN * Psychiatric disorder Plan: [facility] floor Close monitoring of respiratory status and oxygen needs * ID follow, abx as per ID;Vanco and Aztreonam-completed * completed Plaquenil 06/28 x 5 days - per ID recs * BCX 06/22 and 06/23 NGTD * SARS-CoV-2 by PCR 06/22 detected, on isolation (prior COVID infection was also confirmed by family) * CXR 06/24 - with bilateral mixed interstitial and airspace disease, slightly worse * CXR 06/27 - Mostly stable left-sided infiltrates, increasing right lung infiltrates, likely pneumonia, * CXR 06/30 -Bilateral infiltrates, overall stable versus perhaps slightly improved on the left, over 3 days * SCX if able * MDR with spacer prn * O2 titrate to keep sat above 90% * A/tussive prn * Monitor volumes, HD per renal * trend CRP, ferritin; , LDH : last CRP 20.5( trending down), ferritin 302 , LDH 440 * Check D dimer-1.27; * Monitor blood pressure, on Hydralazine currently * DVT prophylaxis * monitor volumes, HD as per nephro with close monitoring of renal parameters and lytes * more calm and cooperative * depending on disposition may need another CoVID testing / for HD * per ID can be removed from enhanced droplet isolation' * dc plan as per primary case discussed and evaluated by supervising physician Subjective ROS Limited/Unobtainable: No Constitutional: Reports: no symptoms Gastrointestinal/Abdominal: Reports: no symptoms Psychiatric: Reports: no symptoms Skin: Reports: no symptoms Musculoskeletal: Reports: no symptoms Allergies: Coded Allergies: PENICILLINS (Verified Allergy, Unknown, 01/30/17) hives 01/30/17: ITCHING WITH ZOSYN Subjective on O2 2 L via NC pulse ox stable, no fevers CXR 06/30 noted, stable MELANIA-CoV-2 by PCR 06/22 + detected remains in isolation CRP trending down more compliant with treatment Objective Last 24 Hour Vital Signs Date Time Temp Pulse Resp B/P (MAP) Pulse Ox O2 Delivery O2 Flow Rate FiO2 07/07/19 12:00 97.3 72 18 116/67 (83) 98 07/07/19 10:45 104/59 (74) 07/07/19 09:00 91 95/50 07/07/19 09:00 Nasal Cannula 2.0 07/07/19 08:00 98.2 74 20 120/55 (76) 97 07/07/19 04:00 97.6 65 18 114/60 (78) 95 07/07/19 00:00 97.9 71 22 135/67 (89) 99 07/06/19 21:00 Nasal Cannula 2.0 07/06/19 20:00 98.2 74 20 120/55 (76) 97 07/06/19 16:00 98.6 78 18 102/57 (72) 97 Intake and Output 07/06/19 07/07/19 19:00 07:00 Intake Total 596 ml 118 ml Balance 596 ml 118 ml Intake Oral 596 ml Other 118 ml # Voids 1 Objective General Appearance: no acute distress Guatemalan speaking female ,anxious, HEENT: normocephalic, atraumatic, anicteric, mucous membranes moist, PERRL Respiratory/Chest: BS overall clear, no respiratory distress, no accessory muscle use Cardiovascular: normal rate, no JVD Abdomen: normal bowel sounds, soft, non tender, non distended Extremities: no edema, pedal pulses normal, AV fistula + thrill/bruit 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: alert, responsive Musculoskeletal: normal muscle bulk Laboratory Tests 07/07/19 04:00: White Blood Count 4.7L, Red Blood Count 4.12L, Hemoglobin 11.0L, Hematocrit 35.7L, Mean Corpuscular Volume 87, Mean Corpuscular Hemoglobin 26.6L, Mean Corpuscular Hemoglobin Concent 30.7L, Red Cell Distribution Width 16.4H, Platelet Count 217, Mean Platelet Volume 7.3, Neutrophils (%) (Auto) , Lymphocytes (%) (Auto) , Monocytes (%) (Auto) , Eosinophils (%) (Auto) , Basophils (%) (Auto) , Differential Total Cells Counted 100, Neutrophils % ( Manual) 74, Lymphocytes % (Manual) 14L, Monocytes % (Manual) 11H, Eosinophils % (Manual) 1, Basophils % (Manual) 0, Band Neutrophils 0, Platelet Estimate Adequate, Platelet Morphology Normal, Hypochromasia 1+, Anisocytosis 1+, Sodium Level 140, Potassium Level 4.3, Chloride Level 101, Carbon Dioxide Level 29, Anion Gap 10, Blood Urea Nitrogen 30H, Creatinine 9.9H, Estimat Glomerular Filtration Rate 4.3, Glucose Level 84, Calcium Level 9.7, Magnesium Level 2.7H, Total Bilirubin 0.6, Aspartate Amino Transf (AST/SGOT) 29, Alanine Aminotransferase (ALT/SGPT) 23, Alkaline Phosphatase 148H, Troponin I 0.004, Total Protein 8.0, Albumin 3.2L, Globulin 4.8, Albumin/Globulin Ratio 0.7L Current Medications Medications (Trade) Dose Ordered Sig/Sarah Route PRN Reason Start Time Stop Time Status Last Admin Dose Admin Acetaminophen (Tylenol) 650 mg Q4H PRN ORAL Temp >100.5 / mild pain 1-3 06/23/19 23:00 07/23/19 22:59 06/27/19 08:17 Albuterol Sulfate (Proventil MDI) 2 puff Q4H PRN INH Shortness of Breath 06/23/19 23:00 09/21/19 22:59 Albuterol/ Ipratropium (Combivent Respimat) 1 puff Q6HRT INH 06/24/19 01:00 07/24/19 00:59 07/07/19 07:00 Clonidine HCl (Catapres Tab) 0.1 mg Q4H PRN ORAL BP over 160 systolic 06/23/19 15:00 09/21/19 14:59 Guaifenesin/ Dextromethorphan (Robitussin DM Syrup) 10 ml Q4H PRN ORAL For Cough 06/23/19 23:00 09/21/19 22:59 06/27/19 20:42 Heparin Sodium (Porcine) (Heparin 5000 units/ml) 5,000 units EVERY 12 HOURS SUBQ 06/23/19 15:45 08/07/19 15:44 07/06/19 20:26 Loperamide HCl (Imodium) 2 mg TIDPRN PRN ORAL Diarrhea 06/25/19 12:45 07/25/19 12:44 07/05/19 18:56 Pantoprazole (Protonix) 40 mg BID ORAL 06/23/19 18:00 07/23/19 17:59 07/07/19 08:15 Sevelamer Carbonate (Renvela) 1,600 mg THREE TIMES A DAY ORAL 07/03/19 13:39 10/01/19 13:38 07/07/19 08:16 Allan Morales MD 07/07/19 1830: Assessment/Plan Assessment/Plan PATIENT SEEN AND EXAMINED WITH CLAIMS ASSOCIATE, AGREE WITH A&P ABOVE IT REFLECTS OUR JOINT DELIBERATIONS. Subjective Allergies: Coded Allergies: PENICILLINS (Verified Allergy, Unknown, 01/30/17) hives 01/30/17: ITCHING WITH Catherine Barlow NP July 07, 2019 14:00 Allan Morales MD July 07, 2019 18:30
--- NOTE | 2019-07-07 14:17 | Diagnostic Imaging Report ---
Indication: Shortness of breath Technique: One view of the chest Comparison: July 01, 2019 Findings: Bilateral diffuse interstitial and airspace disease appears similar to the previous exam, allowing for differences in exposure technique. Normal heart size. Left axillary surgical clips are again noted. Impression: Unchanged bilateral infiltrates, over 6 days
--- NOTE | 2019-07-07 14:26 | NUR ---
CASE MANAGEMENT:REVIEW SI;COVID-19 PNEUMONIA. SEPSIS. ESRD ON HD. 98.2 74 22 95/50 95% 2L NC WBC 4.7 MAG 2.7 ALK PHOS 148 ALB 3.2 IS;ALBUMIN IV ONCE COMBIVENT ING Q6HRT ROBITUSSIN PO Q4 HRS PRN PROVENTIL ING Q4 HRS PRN PROTONIX PO BID HEPARIN SUBQ Q12 HRS REPEAT COVIS-19 ON 07/06/19 ~ RESULT PENDING MED SURG STATUS DCP;PATIENT IS FROM HOME PLAN;DC HOME PENDING REPEAT COVID-19 RESULT
--- NOTE | 2019-07-07 19:00 | NUR ---
NURSE NOTES: Patient's blood pressure has been stable, denied foot cramp or dizziness. No bleeding from AV shunt (+)bruit and thrill.
--- NOTE | 2019-07-07 19:30 | NUR ---
NURSE NOTES: Patient awake in bed, verbalized feeling better than earlier today. No complaints of pain upon rounds.Call lights in reach. Safety measures applied. Will continue plan of care.
--- NOTE | 2019-07-07 19:30 | NUR ---
HAND-OFF: Report given to Manuel and endorsed plan of care.
--- NOTE | 2019-07-07 21:48 | Infectious Diseases Prog Note ---
Assessment/Plan Problems: (1) PNA (pneumonia) Assessment & Plan: superimposed with COVID 19 infection, S/P vancomycin and aztreonam empirically for 10 days . 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 may remove from enhanced droplet isolation. await repeated PCR test (3) Fever Assessment & Plan: suspect due to the above , IMPROVING , continue Tylenol as needed (4) Sepsis Assessment & Plan: due to the above resolved , S/P vancomycin with azactam to cover for pneumonia for 10 days , blood culture x 2 is negative (5) ESRD (end stage renal disease) on dialysis Assessment & Plan: continue hemodialysis and renally dosed antibiotics as per pharmacy (6) DM II (diabetes mellitus, type II), controlled Assessment & Plan: recommend tight glycemic control to keep blood glucose between [id number] Subjective Constitutional: Reports: no symptoms HEENT: Reports: no symptoms Respiratory: Reports: no symptoms Breasts: Reports: no symptoms Cardiovascular: Reports: no symptoms Gastrointestinal/Abdominal: Reports: no symptoms Genitourinary: Reports: no symptoms Neurologic: Reports: no symptoms Psychiatric: Reports: no symptoms Skin: Reports: no symptoms Endocrine: Reports: no symptoms Hematologic: Reports: no symptoms Musculoskeletal: Reports: no symptoms Allergies: Coded Allergies: PENICILLINS (Verified Allergy, Unknown, 01/30/17) hives 01/30/17: ITCHING WITH ZOSYN Objective Vital Signs Last 24 Hour Vital Signs Date Time Temp Pulse Resp B/P (MAP) Pulse Ox O2 Delivery O2 Flow Rate FiO2 07/07/19 21:00 Nasal Cannula 2.0 07/07/19 20:00 98.4 75 17 110/56 (74) 98 07/07/19 16:00 97.2 77 18 107/60 (76) 98 07/07/19 12:00 97.3 72 18 116/67 (83) 98 07/07/19 10:45 104/59 (74) 07/07/19 09:00 91 95/50 07/07/19 09:00 Nasal Cannula 2.0 07/07/19 08:00 98.2 74 20 120/55 (76) 97 07/07/19 04:00 97.6 65 18 114/60 (78) 95 07/07/19 00:00 97.9 71 22 135/67 (89) 99 Height (Feet): 4 Height (Inches): 10.00 Weight (Pounds): 102 General Appearance: WD/WN, no acute distress HEENT: normocephalic, atraumatic, anicteric, mucous membranes moist, PERRL Respiratory/Chest: chest wall non-tender, lungs clear, normal breath sounds, no respiratory distress, no accessory muscle use Cardiovascular: normal peripheral pulses, normal rate, regular rhythm, no gallop/murmur, no JVD Abdomen: normal bowel sounds, soft, non tender, no organomegaly, non distended , no mass, no scars Genitourinary: normal external genitalia Extremities: no cyanosis, no clubbing Skin: no rash, no lesions, no ulcers 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: 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, no motor/sensory deficits, oriented x 3, responsive Lymphatic: no neck adenopathy, no groin adenopathy Musculoskeletal: normal muscle bulk Laboratory Tests Test 07/07/19 04:00 White Blood Count 4.7 K/UL (4.8-10.8) L Red Blood Count 4.12 M/UL (4.20-5.40) L Hemoglobin 11.0 G/DL (12.0-16.0) L Hematocrit 35.7 % (37.0-47.0) L Mean Corpuscular Volume 87 FL (80-99) Mean Corpuscular Hemoglobin 26.6 PG (27.0-31.0) L Mean Corpuscular Hemoglobin Concent 30.7 G/DL (32.0-36.0) L Red Cell Distribution Width 16.4 % (11.6-14.8) H Platelet Count 217 K/UL (150-450) Mean Platelet Volume 7.3 FL (6.5-10.1) Neutrophils (%) (Auto) % (45.0-75.0) Lymphocytes (%) (Auto) % (20.0-45.0) Monocytes (%) (Auto) % (1.0-10.0) Eosinophils (%) (Auto) % (0.0-3.0) Basophils (%) (Auto) % (0.0-2.0) Differential Total Cells Counted 100 Neutrophils % (Manual) 74 % (45-75) Lymphocytes % (Manual) 14 % (20-45) L Monocytes % (Manual) 11 % (1-10) H Eosinophils % (Manual) 1 % (0-3) Basophils % (Manual) 0 % (0-2) Band Neutrophils 0 % (0-8) Platelet Estimate Adequate Platelet Morphology Normal Hypochromasia 1+ Anisocytosis 1+ Sodium Level 140 MMOL/L (136-145) Potassium Level 4.3 MMOL/L (3.5-5.1) Chloride Level 101 MMOL/L (98-107) Carbon Dioxide Level 29 MMOL/L (21-32) Anion Gap 10 mmol/L (5-15) Blood Urea Nitrogen 30 mg/dL (7-18) H Creatinine 9.9 MG/DL (0.55-1.30) H Estimat Glomerular Filtration Rate 4.3 mL/min (>60) Glucose Level 84 MG/DL (74-106) Calcium Level 9.7 MG/DL (8.5-10.1) Magnesium Level 2.7 MG/DL (1.8-2.4) H Total Bilirubin 0.6 MG/DL (0.2-1.0) Aspartate Amino Transf (AST/SGOT) 29 U/L (15-37) Alanine Aminotransferase (ALT/SGPT) 23 U/L (12-78) Alkaline Phosphatase 148 U/L (46-116) H Troponin I 0.004 ng/mL (0.000-0.056) Total Protein 8.0 G/DL (6.4-8.2) Albumin 3.2 G/DL (3.4-5.0) L Globulin 4.8 g/dL Albumin/Globulin Ratio 0.7 (1.0-2.7) L Current Medications Medications (Trade) Dose Ordered Sig/Sarah Route PRN Reason Start Time Stop Time Status Last Admin Dose Admin Acetaminophen (Tylenol) 650 mg Q4H PRN ORAL Temp >100.5 / mild pain 1-3 06/23/19 23:00 07/23/19 22:59 06/27/19 08:17 Albuterol Sulfate (Proventil MDI) 2 puff Q4H PRN INH Shortness of Breath 06/23/19 23:00 09/21/19 22:59 Albuterol/ Ipratropium (Combivent Respimat) 1 puff Q6HRT INH 06/24/19 01:00 07/24/19 00:59 07/07/19 19:17 Clonidine HCl (Catapres Tab) 0.1 mg Q4H PRN ORAL BP over 160 systolic 06/23/19 15:00 09/21/19 14:59 Guaifenesin/ Dextromethorphan (Robitussin DM Syrup) 10 ml Q4H PRN ORAL For Cough 06/23/19 23:00 09/21/19 22:59 06/27/19 20:42 Heparin Sodium (Porcine) (Heparin 5000 units/ml) 5,000 units EVERY 12 HOURS SUBQ 06/23/19 15:45 08/07/19 15:44 07/06/19 20:26 Loperamide HCl (Imodium) 2 mg TIDPRN PRN ORAL Diarrhea 06/25/19 12:45 07/25/19 12:44 07/05/19 18:56 Pantoprazole (Protonix) 40 mg BID ORAL 06/23/19 18:00 07/23/19 17:59 07/07/19 17:25 Sevelamer Carbonate (Renvela) 1,600 mg THREE TIMES A DAY ORAL 07/03/19 13:39 10/01/19 13:38 07/07/19 17:25 Shahab Arnett M.D. July 07, 2019 21:48
--- NOTE | 2019-07-07 23:14 | Cardiology Progress Note ---
Assessment/Plan Assessment/Plan 1. Bilateral pulmonary edema with increased in brain natriuretic peptide most likely a component of end-stage renal disease and chronic heart failure with preserved ejection fraction. 2. End-stage renal disease. 3. COVID-19, bilateral pneumonia. 4. Hypertension, well controlled, continue amlodipine. 5. Diabetes mellitus. Continue aspirin and statins. Subjective Subjective No cardiac events reported. Objective Last 24 Hour Vital Signs Date Time Temp Pulse Resp B/P (MAP) Pulse Ox O2 Delivery O2 Flow Rate FiO2 07/07/19 21:00 Nasal Cannula 2.0 07/07/19 20:00 98.4 75 17 110/56 (74) 98 07/07/19 16:00 97.2 77 18 107/60 (76) 98 07/07/19 12:00 97.3 72 18 116/67 (83) 98 07/07/19 10:45 104/59 (74) 07/07/19 09:00 91 95/50 07/07/19 09:00 Nasal Cannula 2.0 07/07/19 08:00 98.2 74 20 120/55 (76) 97 07/07/19 04:00 97.6 65 18 114/60 (78) 95 07/07/19 00:00 97.9 71 22 135/67 (89) 99 Intake and Output 07/06/19 07/07/19 19:00 07:00 Intake Total 596 ml 118 ml Balance 596 ml 118 ml Intake Oral 596 ml Other 118 ml # Voids 1 Laboratory Tests Test 07/07/19 04:00 White Blood Count 4.7 K/UL (4.8-10.8) L Red Blood Count 4.12 M/UL (4.20-5.40) L Hemoglobin 11.0 G/DL (12.0-16.0) L Hematocrit 35.7 % (37.0-47.0) L Mean Corpuscular Volume 87 FL (80-99) Mean Corpuscular Hemoglobin 26.6 PG (27.0-31.0) L Mean Corpuscular Hemoglobin Concent 30.7 G/DL (32.0-36.0) L Red Cell Distribution Width 16.4 % (11.6-14.8) H Platelet Count 217 K/UL (150-450) Mean Platelet Volume 7.3 FL (6.5-10.1) Neutrophils (%) (Auto) % (45.0-75.0) Lymphocytes (%) (Auto) % (20.0-45.0) Monocytes (%) (Auto) % (1.0-10.0) Eosinophils (%) (Auto) % (0.0-3.0) Basophils (%) (Auto) % (0.0-2.0) Differential Total Cells Counted 100 Neutrophils % (Manual) 74 % (45-75) Lymphocytes % (Manual) 14 % (20-45) L Monocytes % (Manual) 11 % (1-10) H Eosinophils % (Manual) 1 % (0-3) Basophils % (Manual) 0 % (0-2) Band Neutrophils 0 % (0-8) Platelet Estimate Adequate Platelet Morphology Normal Hypochromasia 1+ Anisocytosis 1+ Sodium Level 140 MMOL/L (136-145) Potassium Level 4.3 MMOL/L (3.5-5.1) Chloride Level 101 MMOL/L (98-107) Carbon Dioxide Level 29 MMOL/L (21-32) Anion Gap 10 mmol/L (5-15) Blood Urea Nitrogen 30 mg/dL (7-18) H Creatinine 9.9 MG/DL (0.55-1.30) H Estimat Glomerular Filtration Rate 4.3 mL/min (>60) Glucose Level 84 MG/DL (74-106) Calcium Level 9.7 MG/DL (8.5-10.1) Magnesium Level 2.7 MG/DL (1.8-2.4) H Total Bilirubin 0.6 MG/DL (0.2-1.0) Aspartate Amino Transf (AST/SGOT) 29 U/L (15-37) Alanine Aminotransferase (ALT/SGPT) 23 U/L (12-78) Alkaline Phosphatase 148 U/L (46-116) H Troponin I 0.004 ng/mL (0.000-0.056) Total Protein 8.0 G/DL (6.4-8.2) Albumin 3.2 G/DL (3.4-5.0) L Globulin 4.8 g/dL Albumin/Globulin Ratio 0.7 (1.0-2.7) L Objective HEENT: Atraumatic and normocephalic. Anicteric. Pupils are equal, round, reactive to light and accommodation. Extraocular muscles intact. NECK: JVP less than 5 cm. No carotid bruit. Carotid upstroke is 2+ bilaterally. CVS: Normal S1, S2. Regular rate and rhythm. No murmurs, gallops, or rubs. PMI is at fourth intercostal space at the midclavicular line. LUNGS: Diminished breath sounds in both lungs with bibasilar crackles. ABDOMEN: Soft, nontender, nondistended. No hepatosplenomegaly. Positive bowel sounds. EXTREMITIES: No evidence of edema, clubbing, or cyanosis. Param No MD July 07, 2019 23:14
[2019-07-08] VITALS: BP 105/54
[2019-07-08 04:00] VITALS: BP 108/53
--- NOTE | 2019-07-08 07:27 | NUR ---
HAND-OFF: Report given to NITHIN Hoffman.
--- NOTE | 2019-07-08 07:30 | NUR ---
NURSE NOTES: Received patient in bed. Awake, A/O x4. Nauruan speaking. On 2 lpm via NC. Patient denies pain at this time. IV in the Left hand, site intact. Dialysis shunt in the Right upper arm, site is intact. Bed low and locked, call light within reach.
[2019-07-08 08:00] VITALS: BP 115/59
--- NOTE | 2019-07-08 08:53 | Pulmonology Progress Note ---
Subjective ROS Limited/Unobtainable: No Allergies: Coded Allergies: PENICILLINS (Verified Allergy, Unknown, 01/30/17) hives 01/30/17: ITCHING WITH ZOSYN Subjective on O2 2 L via NC pulse ox stable, no fevers CXR 07/06 unchanged bilateral infiltrates, over 6 days MELANIA-CoV-2 by PCR 06/22 + detected more compliant with treatment Objective Last 24 Hour Vital Signs Date Time Temp Pulse Resp B/P (MAP) Pulse Ox O2 Delivery O2 Flow Rate FiO2 07/08/19 04:00 98.1 70 18 108/53 (71) 98 07/08/19 00:00 98.1 73 18 105/54 (71) 98 07/07/19 21:00 Nasal Cannula 2.0 07/07/19 20:00 98.4 75 17 110/56 (74) 98 07/07/19 16:00 97.2 77 18 107/60 (76) 98 07/07/19 12:00 97.3 72 18 116/67 (83) 98 07/07/19 10:45 104/59 (74) 07/07/19 09:00 91 95/50 07/07/19 09:00 Nasal Cannula 2.0 Intake and Output 07/07/19 07/08/19 19:00 07:00 Intake Total 300 ml 300 ml Output Total 1000 ml Balance -700 ml 300 ml Intake Oral 300 ml 300 ml Output Hemodialysis UF 1000 ml # Voids 1 2 Objective General Appearance: no acute distress Sammarinese speaking female ,anxious, HEENT: normocephalic, atraumatic, anicteric, mucous membranes moist, PERRL Respiratory/Chest: BS overall clear, no respiratory distress, no accessory muscle use Cardiovascular: normal rate, no JVD Abdomen: normal bowel sounds, soft, non tender, non distended Extremities: no edema, pedal pulses normal, AV fistula + thrill/bruit 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: alert, responsive Musculoskeletal: normal muscle bulk Current Medications Medications (Trade) Dose Ordered Sig/Sarah Route PRN Reason Start Time Stop Time Status Last Admin Dose Admin Acetaminophen (Tylenol) 650 mg Q4H PRN ORAL Temp >100.5 / mild pain 1-3 06/23/19 23:00 07/23/19 22:59 06/27/19 08:17 Albuterol Sulfate (Proventil MDI) 2 puff Q4H PRN INH Shortness of Breath 06/23/19 23:00 09/21/19 22:59 Albuterol/ Ipratropium (Combivent Respimat) 1 puff Q6HRT INH 06/24/19 01:00 07/24/19 00:59 07/08/19 06:50 Clonidine HCl (Catapres Tab) 0.1 mg Q4H PRN ORAL BP over 160 systolic 06/23/19 15:00 09/21/19 14:59 Guaifenesin/ Dextromethorphan (Robitussin DM Syrup) 10 ml Q4H PRN ORAL For Cough 06/23/19 23:00 09/21/19 22:59 06/27/19 20:42 Heparin Sodium (Porcine) (Heparin 5000 units/ml) 5,000 units EVERY 12 HOURS SUBQ 06/23/19 15:45 08/07/19 15:44 07/06/19 20:26 Loperamide HCl (Imodium) 2 mg TIDPRN PRN ORAL Diarrhea 06/25/19 12:45 07/25/19 12:44 07/05/19 18:56 Pantoprazole (Protonix) 40 mg BID ORAL 06/23/19 18:00 07/23/19 17:59 07/07/19 17:25 Sevelamer Carbonate (Renvela) 1,600 mg THREE TIMES A DAY ORAL 07/03/19 13:39 10/01/19 13:38 07/07/19 17:25 Assessment/Plan Assessment/Plan ASSESSMENT * confirmed COVID-19 acute respiratory illness * bilateral PNA, probably HCAP due to CoVID * Mild transaminitis * ESRD on HD * E/lyte imbalance * HTN * Psychiatric disorder PLAN OF CARE [facility] floor Close monitoring of respiratory status and oxygen needs * ID follow, abx as per ID;Vanco and Aztreonam-completed * completed Plaquenil 06/28 x 5 days - per ID recs * BCX 06/22 and 06/23 NGTD * SARS-CoV-2 by PCR 06/22 detected, on isolation (prior COVID infection was also confirmed by family) * repeated PCR pending * off isolation as per ID * CXR 06/24 - with bilateral mixed interstitial and airspace disease, slightly worse * CXR 06/27 - Mostly stable left-sided infiltrates, increasing right lung infiltrates, likely pneumonia, * CXR 06/30 -Bilateral infiltrates, overall stable versus perhaps slightly improved on the left, over 3 days * SCX if able * MDR with spacer prn * O2 titrate to keep sat above 90% * A/tussive prn * CXR 06/30 -unchanged bilateral infiltrates, over 6 days, given nor natividad symptoms , no fevers, no leukocytosis, most likely representing some fluid overload 2 to renal failure, * Monitor volumes, HD per renal with close monitoring of renal parameters and lytes * trend CRP, ferritin; , LDH : last CRP / - 6.5 ( trending down from highest 58) , repeat CRP LDH in am * Check D dimer-1.27; * Monitor blood pressure, on Hydralazine currently * DVT prophylaxis * monitor volumes, HD as per nephro with close monitoring of renal parameters and lytes * more calm and cooperative * depending on disposition may need another CoVID testing / for HD * per ID can be removed from enhanced droplet isolation' * dc plan as per primary case discussed and evaluated by supervising physician Catherine Bryan NP July 08, 2019 08:53
[2019-07-08] MEDS: Renvela 800mg Pkt ORAL SCH ×3 (09:18→18:16)
[2019-07-08] MEDS: Heparin 5000 units/ml inj SUBQ SCH ×2 (09:19→21:00)
--- NOTE | 2019-07-08 09:27 | Hematology/Onc Progress Note ---
Assessment/Plan Assessment/Plan # Leukopenia on admission - with likely infection, bilateral pulmonary edema with increased in brain natriuretic peptide most likely a component of end- stage renal disease and chronic heart failure with preserved ejection fraction. --> hepatitis and hiv neg --> imaging reviewed, abd us from 3 years ago negative --> smear is noted --> meds have been reviewed --> neupogen sq as needed prn --> wbc trend 3.7-->6.6-->3.1->3.7->4.6->4.9-->4 # Anemia likely due to End-stage renal disease --> very mild currently, hgb 12->11.7-->11.3-->11 --> w/u as needed if lower # COVID-19, bilateral pneumonia. --> as per Id, Dr. Arnett on case --> iso, and droplet iso --> is on 2l nc # History of hypertension, controlled with hydralazine --> per cards # Sepsis --> start vancomycin with azactam pending blood culture # ESRD (end stage renal disease) on dialysis --> continue hemodialysis --> renally dosed antibiotics # DM II (diabetes mellitus, type II), controlled --> recommend tight glycemic control to keep blood glucose between [id number] # Dvt ppx heparin sq Appreciate consultation and effie rn Subjective Respiratory: Denies: no symptoms, cough, shortness of breath, SOB with excertion, SOB at rest, sputum, wheezing, other Gastrointestinal/Abdominal: Denies: no symptoms, abdomen distended, abdominal pain, black stools, tarry stools, blood in stool, constipated, diarrhea, difficulty swallowing, nausea, poor appetite, poor fluid intake, rectal bleeding , vomiting, other Genitourinary: Denies: no symptoms, burning, discharge, frequency, flank pain, hematuria, incontinence, pain, urgency, other 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: Denies: no symptoms, anxiety, depressed, emotional problems, headache, numbness, paresthesia, pre-existing deficit, seizure, tingling, tremors, weakness, other Endocrine: Denies: no symptoms, excessive sweating, flushing, intolerance to cold, intolerance to heat, increased hunger, increased thirst, increased urine, unexplained weight gain, unexplained weight loss, other Hematologic/Lymphatic: Denies: no symptoms, anemia, easy bleeding, easy bruising, adenopathy, other Allergies: Coded Allergies: PENICILLINS (Verified Allergy, Unknown, 01/30/17) hives 01/30/17: ITCHING WITH ZOSYN Subjective 06/27 khmer speaking, to get hd, labs yesterday looked better, cbc has been ordered 06/28 tolerated hd well, no bleeding, labs noted, no night sweats 06/29 to get hd today, no bleeding, meds now, labs reviewed 06/30 no complaints, no bleeding, no night sweats 07/01 labs reviewed, no night sweats, meds reviewed, smear is noted 07/03 labs reviewed, no bleeding or chills, dw rn, no night sweats 07/04 as per renal for hd today, labs are noted, no bleeding 07/05 hd was done, on 2lnc, no bleeding, meds noted 07/06 awake, no acute events, no labs, no sob, albumin 07/07 awake, alert, is on 2l nc, no bleeding or chills Objective Objective Current Medications Medications (Trade) Dose Ordered Sig/Sarah Route PRN Reason Start Time Stop Time Status Last Admin Dose Admin Acetaminophen (Tylenol) 650 mg Q4H PRN ORAL Temp >100.5 / mild pain 1-3 06/23/19 23:00 07/23/19 22:59 06/27/19 08:17 Albuterol Sulfate (Proventil MDI) 2 puff Q4H PRN INH Shortness of Breath 06/23/19 23:00 09/21/19 22:59 Albuterol/ Ipratropium (Combivent Respimat) 1 puff Q6HRT INH 06/24/19 01:00 07/24/19 00:59 07/08/19 06:50 Clonidine HCl (Catapres Tab) 0.1 mg Q4H PRN ORAL BP over 160 systolic 06/23/19 15:00 09/21/19 14:59 Guaifenesin/ Dextromethorphan (Robitussin DM Syrup) 10 ml Q4H PRN ORAL For Cough 06/23/19 23:00 09/21/19 22:59 06/27/19 20:42 Heparin Sodium (Porcine) (Heparin 5000 units/ml) 5,000 units EVERY 12 HOURS SUBQ 06/23/19 15:45 08/07/19 15:44 07/08/19 09:19 Loperamide HCl (Imodium) 2 mg TIDPRN PRN ORAL Diarrhea 06/25/19 12:45 07/25/19 12:44 07/05/19 18:56 Pantoprazole (Protonix) 40 mg BID ORAL 06/23/19 18:00 07/23/19 17:59 07/08/19 09:18 Sevelamer Carbonate (Renvela) 1,600 mg THREE TIMES A DAY ORAL 07/03/19 13:39 10/01/19 13:38 07/08/19 09:18 Last 24 Hour Vital Signs Date Time Temp Pulse Resp B/P (MAP) Pulse Ox O2 Delivery O2 Flow Rate FiO2 07/08/19 04:00 98.1 70 18 108/53 (71) 98 07/08/19 00:00 98.1 73 18 105/54 (71) 98 07/07/19 21:00 Nasal Cannula 2.0 07/07/19 20:00 98.4 75 17 110/56 (74) 98 07/07/19 16:00 97.2 77 18 107/60 (76) 98 07/07/19 12:00 97.3 72 18 116/67 (83) 98 07/07/19 10:45 104/59 (74) 07/07/19 09:00 91 95/50 07/07/19 09:00 Nasal Cannula 2.0 07/07/19 08:00 98.2 74 20 120/55 (76) 97 07/07/19 04:00 97.6 65 18 114/60 (78) 95 07/07/19 00:00 97.9 71 22 135/67 (89) 99 07/06/19 21:00 Nasal Cannula 2.0 07/06/19 20:00 98.2 74 20 120/55 (76) 97 07/06/19 16:00 98.6 78 18 102/57 (72) 97 07/06/19 12:00 98.2 74 18 105/54 (71) 99 Intake and Output 07/07/19 07/08/19 19:00 07:00 Intake Total 300 ml 300 ml Output Total 1000 ml Balance -700 ml 300 ml Intake Oral 300 ml 300 ml Output Hemodialysis UF 1000 ml # Voids 1 2 Labs Test 5/5/20 04:45 07/07/19 04:00 Sodium Level 140 MMOL/L (136-145) 140 MMOL/L (136-145) Potassium Level 3.9 MMOL/L (3.5-5.1) 4.3 MMOL/L (3.5-5.1) Chloride Level 96 MMOL/L (98-107) 101 MMOL/L (98-107) Carbon Dioxide Level 30 MMOL/L (21-32) 29 MMOL/L (21-32) Anion Gap 14 mmol/L (5-15) 10 mmol/L (5-15) Blood Urea Nitrogen 51 mg/dL (7-18) 30 mg/dL (7-18) Creatinine 13.7 MG/DL (0.55-1.30) 9.9 MG/DL (0.55-1.30) Estimat Glomerular Filtration Rate 3.0 mL/min (>60) 4.3 mL/min (>60) Glucose Level 81 MG/DL (74-106) 84 MG/DL (74-106) Calcium Level 9.2 MG/DL (8.5-10.1) 9.7 MG/DL (8.5-10.1) Total Bilirubin 0.6 MG/DL (0.2-1.0) 0.6 MG/DL (0.2-1.0) Aspartate Amino Transf (AST/SGOT) 29 U/L (15-37) 29 U/L (15-37) Alanine Aminotransferase (ALT/SGPT) 24 U/L (12-78) 23 U/L (12-78) Alkaline Phosphatase 138 U/L (46-116) 148 U/L (46-116) Total Protein 7.7 G/DL (6.4-8.2) 8.0 G/DL (6.4-8.2) Albumin 3.0 G/DL (3.4-5.0) 3.2 G/DL (3.4-5.0) Globulin 4.7 g/dL 4.8 g/dL Albumin/Globulin Ratio 0.6 (1.0-2.7) 0.7 (1.0-2.7) White Blood Count 4.7 K/UL (4.8-10.8) Red Blood Count 4.12 M/UL (4.20-5.40) Hemoglobin 11.0 G/DL (12.0-16.0) Hematocrit 35.7 % (37.0-47.0) Mean Corpuscular Volume 87 FL (80-99) Mean Corpuscular Hemoglobin 26.6 PG (27.0-31.0) Mean Corpuscular Hemoglobin Concent 30.7 G/DL (32.0-36.0) Red Cell Distribution Width 16.4 % (11.6-14.8) Platelet Count 217 K/UL (150-450) Mean Platelet Volume 7.3 FL (6.5-10.1) Neutrophils (%) (Auto) % (45.0-75.0) Lymphocytes (%) (Auto) % (20.0-45.0) Monocytes (%) (Auto) % (1.0-10.0) Eosinophils (%) (Auto) % (0.0-3.0) Basophils (%) (Auto) % (0.0-2.0) Differential Total Cells Counted 100 Neutrophils % (Manual) 74 % (45-75) Lymphocytes % (Manual) 14 % (20-45) Monocytes % (Manual) 11 % (1-10) Eosinophils % (Manual) 1 % (0-3) Basophils % (Manual) 0 % (0-2) Band Neutrophils 0 % (0-8) Platelet Estimate Adequate Platelet Morphology Normal Hypochromasia 1+ Anisocytosis 1+ Magnesium Level 2.7 MG/DL (1.8-2.4) Troponin I 0.004 ng/mL (0.000-0.056) Height (Feet): 4 Height (Inches): 10.00 Weight (Pounds): 103 Objective Gen: nad, A+O x4 Puilm: ctab, no cwr, nc+ CV: rrr, no mg Abd: soft, nt, nd Ext: no cce, right upper ext fistula++ Ray Lopez MD July 08, 2019 09:27
--- NOTE | 2019-07-08 11:32 | Nephrology Progress Note ---
Assessment/Plan Problem List: (1) Pneumonia (2) COVID-19 Assessment: CRP and LDH are elevated-ferritin and d-dimer are not elevated (3) ESRD (end stage renal disease) on dialysis (4) HTN (hypertension) Assessment COVID-19 infection/pneumonia End-stage renal disease on hemodialysis 3 times a week Hypertension Diabetes mellitus Plan Patient doing better today No labs drawn today Will check lab tomorrow We will aim for dialysis July 09 Patient received dialysis July 06 experienced hypotension was given albumin bolus management of infection per ID Repeat chest x-ray today is pending Keep the blood pressure in check, Renal diet Next dialysis will be arranged for her July 09 unless she needs it earlier Subjective ROS Limited/Unobtainable: No Constitutional: Reports: malaise, weakness Objective Objective Last 24 Hour Vital Signs Date Time Temp Pulse Resp B/P (MAP) Pulse Ox O2 Delivery O2 Flow Rate FiO2 07/08/19 09:00 Nasal Cannula 2.0 07/08/19 08:00 98.2 78 18 115/59 (77) 98 07/08/19 04:00 98.1 70 18 108/53 (71) 98 07/08/19 00:00 98.1 73 18 105/54 (71) 98 07/07/19 21:00 Nasal Cannula 2.0 07/07/19 20:00 98.4 75 17 110/56 (74) 98 07/07/19 16:00 97.2 77 18 107/60 (76) 98 07/07/19 12:00 97.3 72 18 116/67 (83) 98 Intake and Output 07/07/19 07/08/19 19:00 07:00 Intake Total 300 ml 300 ml Output Total 1000 ml Balance -700 ml 300 ml Intake Oral 300 ml 300 ml Output Hemodialysis UF 1000 ml # Voids 1 2 Height (Feet): 4 Height (Inches): 10.00 Weight (Pounds): 103 General Appearance: no apparent distress Cardiovascular: normal rate Respiratory/Chest: decreased breath sounds Abdomen: soft Objective No change Rufus Mo MD July 08, 2019 11:32
--- NOTE | 2019-07-08 11:34 | NUR ---
*-* DISCHARGE PLANNING *-* PATIENT HAS BEEN REFERRED TO: JUD MCLAUGHLIN P: [phone] F: [phone] EFAX: [phone] Addendum: 07/08/19 at 1143 by DANIEL DIAZ CM *-* S/W WITH GALEN ZHONG WILL REVIEW AND CALL US BACK *-* Addendum: 07/08/19 at 1615 by DANIEL DIAZ CM WRONG PATIENT DISREGARD THIS NOTE
[2019-07-08 12:00] VITALS: BP 100/45
--- NOTE | 2019-07-08 15:05 | NUR ---
SALES REPRESENTATIVE PUBLICATIONS NOTE PER DR JEFFERSON, MAY DC PATIENT HOME AND CONTINUE ISOLATION IF OK BY ID (DR KEYS) NOTED.
[2019-07-08 16:00] VITALS: BP 137/53
--- NOTE | 2019-07-08 16:15 | NUR ---
*-* INSURANCE *-* UPDATED AVAILABLE CLINICALS HAVE BEEN FAXED TO: [facility] P: [phone] F: [phone] &- ALISA IRVIN:BRITTANY REF# [id number] P: [phone] F: [phone]
--- NOTE | 2019-07-08 17:19 | NUR ---
ZANJERO NOTE CALL MADE TO [facility] [phone]. S/W JEREMY, CTR DIRECTOR. CONFIRMED PATIENT WILL CONTINUE WITH SAME CHAIR TIME ON T-TH-S @ 0815. REQUESTS THAT PATIENT BE INFORMED TO CALL DIALYSIS UPON ARRIVAL TO HD CTR. STAFF MEMBER WILL GREET PATIENT AT SIDE DOOR AND ESCORT HER IN TO ISOLATION ROOM. REQUESTS FOR PATIENT TO BE EDUCATED ON IMPORTANCE OF COMPLIANCE WITH DIALYSIS CENTER RECOMMENDATIONS. PATIENT TO WEAR MASK/MOUTH AND NOSE COVERING AT ALL TIMES. RESULT OF COVID-19 PCR ON 07/06/19 TO BE FAXED TO [facility] UPON RECEIPT OF RESULT TO F: [phone] NITHIN DE JESUS AND WILL INFORM PATIENT OF ABOVE INFORMATION.
--- NOTE | 2019-07-08 19:00 | NUR ---
NURSE NOTES: Palmira (niece) stated she could not merchandise pickup/receiving associate the patient to take her home. Asked if we could get the patient a taxi. Palmira stated she would call family friends to find someone to merchandise pickup/receiving associate the patient.
--- NOTE | 2019-07-08 19:20 | NUR ---
HAND-OFF: Report given to Yuliet WELLER.
--- NOTE | 2019-07-08 19:30 | NUR ---
NURSE NOTES: Palmira (niece) said she is still looking for someone to provide transportation. Patient also stated she is finding someone for transportation. Endorsed to oncoming RN.
--- NOTE | 2019-07-08 19:54 | NUR ---
NURSE NOTES: Received patient in bed, patient is discharged home per MD order, awaiting ride home. Spoke with Palmira sauceda, she stated that someone can pick patient up between 930 pm and 10 pm.
--- NOTE | 2019-07-08 20:33 | Infectious Diseases Prog Note ---
Assessment/Plan Problems: (1) PNA (pneumonia) Assessment & Plan: superimposed with COVID 19 infection, S/P vancomycin and aztreonam empirically for 10 days . may remove from enhanced droplet isolation for now (2) COVID-19 Assessment & Plan: tested positive with AERIAL INSTALLER PCR test , S/P hydroxychloroquine with zinc and vitamin C for five days total . may remove from enhanced droplet isolation. await repeated PCR test (3) ESRD (end stage renal disease) on dialysis Assessment & Plan: continue hemodialysis and renally dosed antibiotics as per pharmacy (4) DM II (diabetes mellitus, type II), controlled Assessment & Plan: recommend tight glycemic control to keep blood glucose between [id number] Subjective Constitutional: Reports: no symptoms HEENT: Reports: no symptoms Respiratory: Reports: no symptoms Breasts: Reports: no symptoms Cardiovascular: Reports: no symptoms Gastrointestinal/Abdominal: Reports: no symptoms Genitourinary: Reports: no symptoms Neurologic: Reports: no symptoms Psychiatric: Reports: no symptoms Skin: Reports: no symptoms Endocrine: Reports: no symptoms Hematologic: Reports: no symptoms Musculoskeletal: Reports: no symptoms Allergies: Coded Allergies: PENICILLINS (Verified Allergy, Unknown, 01/30/17) hives 01/30/17: ITCHING WITH ZOSYN Objective Vital Signs Last 24 Hour Vital Signs Date Time Temp Pulse Resp B/P (MAP) Pulse Ox O2 Delivery O2 Flow Rate FiO2 07/08/19 16:00 97.2 78 16 137/53 (81) 96 07/08/19 12:00 96.8 75 17 100/45 (63) 98 07/08/19 09:00 Nasal Cannula 2.0 07/08/19 08:00 98.2 78 18 115/59 (77) 98 07/08/19 04:00 98.1 70 18 108/53 (71) 98 07/08/19 00:00 98.1 73 18 105/54 (71) 98 07/07/19 21:00 Nasal Cannula 2.0 Height (Feet): 4 Height (Inches): 10.00 Weight (Pounds): 103 General Appearance: WD/WN, no acute distress HEENT: normocephalic, atraumatic, anicteric, mucous membranes moist, PERRL Respiratory/Chest: chest wall non-tender, lungs clear, normal breath sounds, no respiratory distress, no accessory muscle use Cardiovascular: normal peripheral pulses, normal rate, regular rhythm, no gallop/murmur, no JVD Abdomen: normal bowel sounds, soft, non tender, no organomegaly, non distended , no mass, no scars Genitourinary: normal external genitalia Extremities: no cyanosis, no clubbing Skin: no rash, no lesions, no ulcers 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: appointment manager II-XII grossly normal, alert, oriented x 3, responsive Lymphatic: no neck adenopathy, no groin adenopathy Musculoskeletal: normal muscle bulk, no effusion Current Medications Medications (Trade) Dose Ordered Sig/Sarah Route PRN Reason Start Time Stop Time Status Last Admin Dose Admin Acetaminophen (Tylenol) 650 mg Q4H PRN ORAL Temp >100.5 / mild pain 1-3 06/23/19 23:00 07/23/19 22:59 06/27/19 08:17 Albuterol Sulfate (Proventil MDI) 2 puff Q4H PRN INH Shortness of Breath 06/23/19 23:00 09/21/19 22:59 Albuterol/ Ipratropium (Combivent Respimat) 1 puff Q6HRT INH 06/24/19 01:00 07/24/19 00:59 07/08/19 18:16 Clonidine HCl (Catapres Tab) 0.1 mg Q4H PRN ORAL BP over 160 systolic 06/23/19 15:00 09/21/19 14:59 Guaifenesin/ Dextromethorphan (Robitussin DM Syrup) 10 ml Q4H PRN ORAL For Cough 06/23/19 23:00 09/21/19 22:59 06/27/19 20:42 Heparin Sodium (Porcine) (Heparin 5000 units/ml) 5,000 units EVERY 12 HOURS SUBQ 06/23/19 15:45 08/07/19 15:44 07/08/19 09:19 Loperamide HCl (Imodium) 2 mg TIDPRN PRN ORAL Diarrhea 06/25/19 12:45 07/25/19 12:44 07/05/19 18:56 Pantoprazole (Protonix) 40 mg BID ORAL 06/23/19 18:00 07/23/19 17:59 07/08/19 18:16 Sevelamer Carbonate (Renvela) 1,600 mg THREE TIMES A DAY ORAL 5/2/20 13:39 10/01/19 13:38 07/08/19 18:16 Shahab Arnett M.D. July 08, 2019 20:33
--- NOTE | 2019-07-08 23:40 | Cardiology Progress Note ---
Assessment/Plan Assessment/Plan Time of note does not reflect time of encounter. 1. Bilateral pulmonary edema with increased in brain natriuretic peptide most likely a component of end-stage renal disease and chronic heart failure with preserved ejection fraction. 2. End-stage renal disease. 3. COVID-19, bilateral pneumonia. 4. Hypertension, well controlled, continue amlodipine. 5. Diabetes mellitus. Continue aspirin and statins. Subjective Subjective No cardiac events reported. Objective Last 24 Hour Vital Signs Date Time Temp Pulse Resp B/P (MAP) Pulse Ox O2 Delivery O2 Flow Rate FiO2 07/08/19 16:00 97.2 78 16 137/53 (81) 96 07/08/19 12:00 96.8 75 17 100/45 (63) 98 07/08/19 09:00 Nasal Cannula 2.0 07/08/19 08:00 98.2 78 18 115/59 (77) 98 07/08/19 04:00 98.1 70 18 108/53 (71) 98 07/08/19 00:00 98.1 73 18 105/54 (71) 98 Intake and Output 07/07/19 07/08/19 19:00 07:00 Intake Total 300 ml 300 ml Output Total 1000 ml Balance -700 ml 300 ml Intake Oral 300 ml 300 ml Output Hemodialysis UF 1000 ml # Voids 1 2 Objective HEENT: Atraumatic and normocephalic. Anicteric. Pupils are equal, round, reactive to light and accommodation. Extraocular muscles intact. NECK: JVP less than 5 cm. No carotid bruit. Carotid upstroke is 2+ bilaterally. CVS: Normal S1, S2. Regular rate and rhythm. No murmurs, gallops, or rubs. PMI is at fourth intercostal space at the midclavicular line. LUNGS: Diminished breath sounds in both lungs with bibasilar crackles. ABDOMEN: Soft, nontender, nondistended. No hepatosplenomegaly. Positive bowel sounds. EXTREMITIES: No evidence of edema, clubbing, or cyanosis. Param No MD July 08, 2019 23:40
--- NOTE | 2019-07-09 11:36 | Discharge Summary ---
Discharge Summary Discharge Summary _ DATE OF ADMISSION: 06/23/2019 DATE OF DISCHARGE: 07/08/2019 DISCHARGED BY: Dr. Waller REASON FOR ADMISSION: 43 y/old female with past medical history of end-stage renal disease, on hemodialysis, hypertension, diabetes mellitus, presented to ED with cough for the last 2 days. No fever or chills. No chest pain or shortness of breath. Upon evaluation patient was hypoxic with pulse oximetry 85% on room air. Chest x-ray demonstrated bilateral interstitial disease with some focal airspace consolidation. Lactic acid 2.5. Leukopenia noted. Troponin 0.022. EKG revealed sinus rhythm, no acute ischemic changes. Elevated BUN /creatinine noted, consistent with known history of end-stage renal disease. Patient was swabbed for COVID-19. Family called later , confirming that the patient was tested positive for COVID 19 prior. Patient admitted to medical surgical floor to isolation room for further management. CONSULTANTS: cad programmer Dr. No pulmonary Dr. Morales ID specialist Dr. Arnett centrex radio operator Dr. Mo sales route driver/oncologist Dr. Lopez HOSPITAL COURSE: Patient admitted to medical surgical floor to isolation room and started on empiric antibiotics. SARS-CoV-2 by PCR on 06/22 was detected. patitn was kept in isoaltion room. Blood cultures were negative. Influenza swab was negative. Patient completed treatment with vancomycin and aztreonam. Patient initially was on Plaquenil for 5 days. Patient was follow-up with a chest x-ray. Pulse oximetry remained stable on room air. Antitussive provided as needed. Hemodialysis provided per centrex radio operator recommendations with close monitoring of volumes, renal parameters and electrolytes. Electrolyte corrected as needed. CRP,, ferritin and LDH were trending. CRP trending down. Blood pressure was closely monitored and remained stable with current regimen. DVT and GI prophylaxis provided. Per cad programmer, bilateral pulmonary edema with increase in pro BNP was likely component of end-stage renal disease and chronic heart failure with preserved ejection fraction. Antiplatelet therapy with aspirin and statin continued. Blood sugar was closely monitored and remained stable. Hemoglobin A1c 5.1 TSH within normal limits. LFT were closely monitored and down to normal prior to discharge. Patient state in the hospital over 14 days and had no fevers. ID specialist cleared patient for discharge according to the latest CDC recommendation. Patient was stable for discharge home FINAL DIAGNOSES: Confirmed COVID-19 acute respiratory illness Bilateral pneumonia Bilateral pulmonary edema (likely a component of end-stage renal disease and chronic heart failure with pEF) Mild transaminitis-resolved End-stage renal disease ,on hemodialysis Hypertension Electrolyte imbalance Hypothyroidism DISCHARGE MEDICATIONS: See Medication Reconciliation list. DISCHARGE INSTRUCTIONS: Patient was discharged home. Follow-up with a primary care provider in 1 week. Follow-up with outpatient hemodialysis. Catherine Bryan NP July 09, 2019 11:36
--- NOTE | 2019-07-09 12:28 | NUR ---
*-* INSURANCE *-* UPDATED AVAILABLE CLINICALS HAVE BEEN FAXED TO: [facility] P: [phone] F: [phone] &- ALISA KENTM:BRITTANY REF# [id number] P: [phone] F: [phone] L[address] MARKER INSTALLER: GIANCARLO F:[phone] Addendum: 07/09/19 at 1230 by DANIEL DIAZ CM DISCHARGE SUMMARY HAS BEEN FAXED
--- NOTE | 2019-07-11 07:36 | Coder Physician Query ---
Clarification is required for compliance, coding accuracy, and to reflect severity of illness for this patient. Dear Dr. Waller Date: 07/11/2019 Bucket Pusher: DEIDRA Painter Sepsis was mentioned in progress notes and started on vancomycin with Azactam pending blood culture. 06/24/19 - sepsis mentioned. Blood cultures negative - no growth after 5 days. FINAL DIAGNOSES: Confirmed COVID-19 acute respiratory illness Bilateral pneumonia A posssible diagnois of_SEPSIS__was made in the medical record. Upon review, it is difficult to determine whether this diagnosis has been ruled in, ruled out, or is still being worked up. Please indicate below the status of the aforementioned diagnosis. [ ] Ruled out [ X] Treated and resolve [ ] Presumed and treated [ ] Currently under treatment [ ] Still being worked-up If ruled out, do not answer question below. Present on Admission: [ X] Yes [] No [] Clinically Undetermined Wally Waller July Physician signature Date Please also document in your Progress Notes and/or Discharge Summary and indicate if the condition was present on admission. LANDON
== END 2019-07-08 21:50 | disposition home or self-care (01) | DRG 720 ==
LOC: EMR 11:23 → 4E 13:03 → EDBEDREQ 13:54 → EDBEDREQSVC 13:54 → EDBEDREQ 14:52 → EDBEDREQSVC 14:52 → EDBEDREQ 20:30 → 4E 22:05
PROC: 5A1D70Z Performance of Urinary Filtration, Intermittent, Less than 6 Hours Per Day (ICD-10-PCS; principal; 2019-07-07)
DX: A41.89 Other specified sepsis (principal); U07.1 COVID-19; J12.89 Other viral pneumonia; I12.0 Hypertensive chronic kidney disease with stage 5 chronic kidney disease or end stage renal disease; E11.22 Type 2 diabetes mellitus with diabetic chronic kidney disease; N18.6 End stage renal disease; J96.91 Respiratory failure, unspecified with hypoxia; E03.9 Hypothyroidism, unspecified; Z88.0 Allergy status to penicillin; R26.89 Other abnormalities of gait and mobility; Z99.2 Dependence on renal dialysis; D63.1 Anemia in chronic kidney disease; F99 Mental disorder, not otherwise specified
CPT/HCPCS: 36415; 71045; 80053; 80076; 80202; 82533; 82550; 82728; 82746; 82962; 82977; 83036; 83520; 83540; 83550; 83605; 83615; 83735; 83880; 84100; 84443; 84484; 84550; 85007; 85025; 85379; 86140; 86706; 86710; 87040; 87081; 87635; 93005; 94640; 96365; 96368; 99285; J7620

== ENCOUNTER 2020-01-13 13:14 | Emergency (ER) | payer MEDICAID ==
[~2020-01-13] VITALS: Ht 144.8 cm; Wt 43.1 kg
[2020-01-13 13:25] VITALS: BP 172/89
--- NOTE | 2020-01-13 13:25 | NUR ---
ED Nurse Note: Pt walked in to ED from home c/o bumps and rashes on her back x2 weeks. Reports itchiness. Denies pain. Pt has been taking benadryl and otc cream but no relief. Pt is a dialysis patient. AAOx4, verbally responsive. No SOB, on room air. Afebrile.
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
[2020-01-13] MEDS ORDERED: BACITRACIN15 GM TOPIC (14:17)
[2020-01-13] MEDS ORDERED: EUCERIN CALM I200 ML TP (14:17)
[2020-01-13] MEDS ORDERED: CEPHALEXIN250 MG ORAL (14:17)
[2020-01-13 14:32] VITALS: BP 155/82
--- NOTE | 2020-01-13 14:32 | NUR ---
ED Nurse Note: Pt cleared by ERMD for discharge. DC instructions/prescription was given and explained to pt and verbalized understanding of teachings. All medical deviecs such as ID band removed. Pt is AAO x4, ambulatory and left with all personal belongings.
== END 2020-01-13 15:00 | disposition home or self-care (01) ==
LOC: EMR 13:45
DX: R21 Rash and other nonspecific skin eruption (principal); E11.22 Type 2 diabetes mellitus with diabetic chronic kidney disease; I13.11 Hypertensive heart and chronic kidney disease without heart failure, with stage 5 chronic kidney disease, or end stage renal disease; N18.6 End stage renal disease; Z99.2 Dependence on renal dialysis; Z88.0 Allergy status to penicillin
CPT/HCPCS: 99282

== ENCOUNTER 2020-01-24 10:37 | Inpatient (IN) | payer MEDICAID ==
[~2020-01-24] VITALS: Ht 144.8 cm; Wt 52.6 kg
[~2020-01-24 10:37] MED LIST changes: +BACITRACIN15 GM TOPIC; +CEPHALEXIN250 MG ORAL; +EUCERIN CALM I200 ML TP
[2020-01-24 11:00] VITALS: BP 181/104
--- NOTE | 2020-01-24 11:20 | Emergency Room Report ---
History of Present Illness General Chief Complaint: Dyspnea/Respdistress Source: Patient Present Illness HPI Disclaimer: Please note that this report is being documented using DRAGON technology. This can lead to erroneous entry secondary to incorrect interpretation by the dictating instrument. HPI: 44-year-old female history of ESRD on hemodialysis TRS, hypertension, diabetes presents evaluation of shortness of breath and cough. Symptoms present approximately 1 week and worsening. She reports difficulty catching her breath and nonproductive cough. Denies fever or chills. Had an episode of diarrhea earlier in the week but this is resolved. Denies abdominal pain. 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 No known sick contacts. She had COVID-19 earlier this summer. 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 EOMI. Cardiovascular: RRR. S1 and S2 normal. Palpable thrill in fistula right upper extremity Resp: Increased respiratory rate, 95% on room air. No crackles appreciated. Abdomen: Abdomen is soft, nondistended. Nontender Skin: Intact. No abrasions, laceration or rash over the exposed skin MSK: Normal tone and bulk. Moving all extremities. No obvious deformity. Neuro: Awake and alert. Mentating appropriately. Procedures Critical Care Time Critical Care Time Total critical care time: Approximately 45 minutes Due to a high probability of clinically significant, life threatening deterioration, the patient required the highest level of preparedness to intervene emergently and I personally spent this critical care time directly and personally managing the patient. This critical care time included obtaining a history, examining the patient, pulse oximetry, ordering and reviewing studies, ordering treatments, evaluating response to treatment and updating management plan as needed, frequent reassessment and discussion with other providers as well as arranging for ultimate disposition. This critical to care time was performed to assess and manage the high probability of life-threatening deterioration that could result in multiorgan failure. This critical care time is separate from the separately billable procedures and treating other patients. Medical Decision Making Diagnostic Impression: Primary Impression: CHF (congestive heart failure) Additional Impressions: Hyperkalemia ESRF (end stage renal failure) Anemia ER Course 44-year-old Salvadorean-speaking female presents for evaluation of shortness of breath and cough of 1 week duration. Differential includes is not limited to fluid overload status, pneumonia, bronchitis, electrolyte abnormality among others. EKG shows sinus tachycardia without obvious ischemic changes. Slightly peaked T waves. Labs show elevated potassium and NSAID of end-stage renal failure. Patient treated with IV calcium, insulin, glucose. Evidence of fluid overload on x-ray and elevated BNP. Will require admission and emergent dialysis. Her attendant child activity was notified. She will be admitted to panel physician, Dr. Belcher. Laboratory Tests Test 01/24/20 11:35 White Blood Count 7.0 K/UL (4.8-10.8) Red Blood Count 5.22 M/UL (4.20-5.40) Hemoglobin 14.5 G/DL (12.0-16.0) Hematocrit 50.5 % (37.0-47.0) H Mean Corpuscular Volume 97 FL (80-99) Mean Corpuscular Hemoglobin 27.8 PG (27.0-31.0) Mean Corpuscular Hemoglobin Concent 28.7 G/DL (32.0-36.0) L Red Cell Distribution Width 18.9 % (11.6-14.8) H Platelet Count 110 K/UL (150-450) L Mean Platelet Volume 9.3 FL (6.5-10.1) Neutrophils (%) (Auto) 81.3 % (45.0-75.0) H Lymphocytes (%) (Auto) 7.9 % (20.0-45.0) L Monocytes (%) (Auto) 8.6 % (1.0-10.0) Eosinophils (%) (Auto) 0.2 % (0.0-3.0) Basophils (%) (Auto) 2.0 % (0.0-2.0) Sodium Level 140 MMOL/L (136-145) Potassium Level 6.7 MMOL/L (3.5-5.1) *H Chloride Level 102 MMOL/L (98-107) Carbon Dioxide Level 21 MMOL/L (21-32) Anion Gap 16 mmol/L (5-15) H Blood Urea Nitrogen 38 mg/dL (7-18) H Creatinine 7.3 MG/DL (0.55-1.30) H Estimated Glomerular Filtration Rate 6.0 mL/min (>60) Glucose Level 139 MG/DL (74-106) H Calcium Level 9.5 MG/DL (8.5-10.1) Total Bilirubin 1.8 MG/DL (0.2-1.0) H Direct Bilirubin 0.3 MG/DL (0.0-0.3) Aspartate Amino Transferase (AST) 36 U/L (15-37) Alanine Aminotransferase (ALT) 14 U/L (12-78) Alkaline Phosphatase 174 U/L (46-116) H Troponin I 0.039 ng/mL (0.000-0.056) Pro-B-Type Natriuretic Peptide > 51775 pg/mL (0-125) H Total Protein 7.8 G/DL (6.4-8.2) Albumin 3.9 G/DL (3.4-5.0) Globulin 3.9 g/dL EKG Diagnostic Results Troponin ordered: Yes When was troponin ordered?: Jan 24, 2020 EKG Time: 11:02 Rate: normal Rhythm: NSR ST Segments: no acute changes Other Impression Sinus rhythm, normal axis, normal intervals, no ST segment changes Rhythm Strip Diag. Results Rhythm Strip Time: 11:02 EP Interpretation: yes Rate: 90s Rhythm: NSR, no PVC's, no ectopy Chest X-Ray Diagnostic Results Chest X-Ray Diagnostic Results : Chest X-Ray Ordered: Yes # of Views/Limited/Complete: 1 View Indication: Shortness of Breath EP Interpretation: Yes Interpretation: no consolidation, no effusion, no pneumothorax, other - Bilateral vascular congestion Impression: Other - Bilateral vascular congestion Electronically Signed by: Electronically signed by Dr. Raza Khalil MD Last Vital Signs Date Time Temp Pulse Resp B/P (MAP) Pulse Ox O2 Delivery O2 Flow Rate FiO2 01/24/20 10:43 97.3 91 20 189/102 (131) 95 Room Air Disposition: ADMITTED INPATIENT Condition: Serious Raza Khalil MD Jan 24, 2020 11:20
[2020-01-24 12:00] LABS: EOSINOPHILS % (AUTO) 0.2 % (0.0-3.0); HEMATOCRIT 50.5 % (37.0-47.0); HEMOGLOBIN 14.5 G/DL (12.0-16.0); LYMPHOCYTES % (AUTO) 7.9 % (20.0-45.0); MEAN CORPUSCULAR VOLUME 97 FL (80-99); MONOCYTES % (AUTO) 8.6 % (1.0-10.0); NEUTROPHILS % (AUTO) 81.3 % (45.0-75.0); PLATELET COUNT 110 K/UL (150-450); RED BLOOD COUNT 5.22 M/UL (4.20-5.40); RED CELL DISTRIBUTION WIDTH 18.9 % (11.6-14.8)
[2020-01-24 12:29] LABS: ALANINE AMINOTRANSFERASE 14 U/L (12-78); ALKALINE PHOSPHATASE 174 U/L (46-116); ANION GAP 16 mmol/L (5-15); ASPARTATE AMINO TRANSFERASE 36 U/L (15-37); BILIRUBIN,TOTAL 1.8 MG/DL (0.2-1.0); CARBON DIOXIDE 21 MMOL/L (21-32); CHLORIDE 102 MMOL/L (98-107); SODIUM 140 MMOL/L (136-145)
[2020-01-24 12:37] LABS: ALBUMIN 3.9 G/DL (3.4-5.0); BLOOD UREA NITROGEN 38 mg/dL (7-18); CALCIUM 9.5 MG/DL (8.5-10.1); CREATININE 7.3 MG/DL (0.55-1.30)
[2020-01-24 12:41] LABS: POTASSIUM 6.7 MMOL/L (3.5-5.1)
[2020-01-24 12:42] LABS: BILIRUBIN,DIRECT 0.3 MG/DL (0.0-0.3)
[2020-01-24] MEDS ORDERED: Insulin Human Regular 100units/ml 3ml IV ONE (12:45)
[2020-01-24] MEDS ORDERED: Calcium Gluconate 1gm/10ml vial IVP ONE (12:45)
--- NOTE | 2020-01-24 12:47 | Diagnostic Imaging Report ---
Indication: Shortness of breath Technique: One view of the chest Comparison: 07/07/2019 Findings: There is bilateral interstitial and airspace congestion. There are small bilateral pleural effusions. Degree of congestion is worse than that seen on the prior exam. The heart is mildly enlarged. There are left axillary surgical clips Impression: Bilateral interstitial and airspace edema versus infiltrates, and small bilateral pleural effusions. Most likely on the basis of congestive heart failure but pneumonia also possibility.
[2020-01-24 13:00] VITALS: BP 186/91
[2020-01-24] MEDS ORDERED: RENVELA800 MG ORAL (14:08)
[2020-01-24] MEDS ORDERED: RANITIDINE HCL150 MG ORAL (14:08)
[2020-01-24] MEDS ORDERED: ADALAT10 MG ORAL (14:08)
[2020-01-24] MEDS ORDERED: OMEPRAZOLE20 M3 ORAL (14:08)
--- NOTE | 2020-01-24 15:08 | History & Physical ---
History and Physical History & Physicial 44-year-old female history of ESRD on hemodialysis, hypertension, diabetes presents for evaluation of shortness of breath and cough. Symptoms have been present for approximately 1 week and now worsening. She reports difficulty catching her breath and nonproductive cough. Denies fever or chills. some diar joshua noted. Denies abdominal pain. No known sick contacts. COVID-19 earlier this summer. PMH: ESRD, hypertension, diabetes PSH: Dialysis fistula Allergies: Penicillin Social Hx: Reviewed Physical WDWN NAD reduced breath sounds bilaterally without rhonchi or wheeze [id number] without MRG NABS nontender no CCE nonfocal Labs Test 01/24/20 11:35 White Blood Count 7.0 K/UL (4.8-10.8) Red Blood Count 5.22 M/UL (4.20-5.40) Hemoglobin 14.5 G/DL (12.0-16.0) Hematocrit 50.5 % (37.0-47.0) Mean Corpuscular Volume 97 FL (80-99) Mean Corpuscular Hemoglobin 27.8 PG (27.0-31.0) Mean Corpuscular Hemoglobin Concent 28.7 G/DL (32.0-36.0) Red Cell Distribution Width 18.9 % (11.6-14.8) Platelet Count 110 K/UL (150-450) Mean Platelet Volume 9.3 FL (6.5-10.1) Neutrophils (%) (Auto) 81.3 % (45.0-75.0) Lymphocytes (%) (Auto) 7.9 % (20.0-45.0) Monocytes (%) (Auto) 8.6 % (1.0-10.0) Eosinophils (%) (Auto) 0.2 % (0.0-3.0) Basophils (%) (Auto) 2.0 % (0.0-2.0) Sodium Level 140 MMOL/L (136-145) Potassium Level 6.7 MMOL/L (3.5-5.1) Chloride Level 102 MMOL/L (98-107) Carbon Dioxide Level 21 MMOL/L (21-32) Anion Gap 16 mmol/L (5-15) Blood Urea Nitrogen 38 mg/dL (7-18) Creatinine 7.3 MG/DL (0.55-1.30) Estimat Glomerular Filtration Rate 6.0 mL/min (>60) Glucose Level 139 MG/DL (74-106) Calcium Level 9.5 MG/DL (8.5-10.1) Total Bilirubin 1.8 MG/DL (0.2-1.0) Direct Bilirubin 0.3 MG/DL (0.0-0.3) Aspartate Amino Transf (AST/SGOT) 36 U/L (15-37) Alanine Aminotransferase (ALT/SGPT) 14 U/L (12-78) Alkaline Phosphatase 174 U/L (46-116) Troponin I 0.039 ng/mL (0.000-0.056) Pro-B-Type Natriuretic Peptide > 59127 pg/mL (0-125) Total Protein 7.8 G/DL (6.4-8.2) Albumin 3.9 G/DL (3.4-5.0) Globulin 3.9 g/dL IMPRESSION hypertension out of control CRF elevated BNP abnormal CXR consider pneumonia vs fluid overload diabetes hypertension PLAN resume med HD with UF oxygen monitor imaging ID eval bp support close monitoring and stabilization prior to dc impression, plan, and exam edited and reviewed in detail care discussed with Josue Rosales MD Jan 24, 2020 15:07
--- NOTE | 2020-01-24 18:48 | Consultation ---
Consult Note Consult Note I am asked to evaluate the patient at the request of Dr. Jean Baptiste for dialysis management Patient is under my care as an outpatient for her dialysis related management Emergency room note: Chief Complaint: Dyspnea/Respdistress HPI: 44-year-old female history of ESRD on hemodialysis TRS, hypertension, diabetes presents evaluation of shortness of breath and cough. Symptoms present approximately 1 week and worsening. She reports difficulty catching her breath and nonproductive cough. Denies fever or chills. Had an episode of diarrhea earlier in the week but this is resolved. Denies abdominal pain. 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 No known sick contacts. She had COVID-19 earlier this summer. 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 CARDIAC: Regular rhythm and rate. Normal S1, S2 with a fourth heart sound and a 1/6 systolic murmur at the apex. ABDOMEN: Soft, nontender. Palpable bruit over fistula. EXTREMITIES: Trace dependent edema. LABORATORY AND DIAGNOSTIC DATA: Chest x-ray reveals interstitial edema and airspace disease, infiltrates versus edema noted and small bilateral pleural effusions noted as well. An EKG was notable for sinus rhythm with no acute abnormalities. Laboratories notable for white count 7, hemoglobin 14.5. Sodium 140, potassium 6.7, BUN 38, creatinine 7.3. Pro-natriuretic peptide over 35,000. Troponin 0.039. . Assessment/Plan Patient presents with volume overload and hyperkalemia End-stage renal disease CHF Hyperkalemia History of anemia History of COVID-19 pneumonia Dialysis and ultrafiltration for correction of hyperkalemia and volume overload Blood pressure medication Per orders Rufus Mo MD Jan 24, 2020 18:47
[2020-01-24] MEDS ORDERED: Sodium Polystyrene Sulfonate 15gm Powder ORAL SCH (19:00)
[2020-01-24] MEDS: HydrALAZINE 25mg tab ORAL SCH (19:05)
[2020-01-24 20:00] VITALS: BP 170/97
[2020-01-24] MEDS: Heparin 5000 units/ml inj SUBQ SCH (20:31)
[2020-01-24] MEDS: Pantoprazole Inj IVP SCH (20:40)
[2020-01-24] MEDS ORDERED: HYDROcodone/Acetamin 5/325 tab ORAL PRN ×2 (23:30)
[2020-01-24 23:56] VITALS: BP 153/87
[2020-01-25] MEDS: HydrALAZINE 25mg tab ORAL SCH ×4 (00:36→22:56)
[2020-01-25 04:00] VITALS: BP 124/65
--- NOTE | 2020-01-25 05:30 | Consultation ---
DATE OF CONSULTATION: 01/24/2020 CARDIOLOGY CONSULTATION CONSULTING PHYSICIAN: Kevan Parks MD. REQUESTING PHYSICIAN: Josue Belcher MD. REASON FOR CONSULTATION: Congestive heart failure. HISTORY OF PRESENT ILLNESS: This 44-year-old female, has end-stage renal disease and is on hemodialysis and she also has a history of hypertension diabetes mellitus. She was brought into the emergency room for evaluation of cough and shortness of breath of one weeks' duration. Symptoms have been progressing. The patient has not had any fevers or chills. She has had a previous history of COVID-19 infection. She has been compliant with medications and dialysis sessions. PAST MEDICAL HISTORY: As noted above. ALLERGIES: Penicillin. MEDICATIONS: Reviewed and reconciled. SOCIAL HISTORY: Negative for smoking or alcohol abuse. REVIEW OF SYSTEMS: Otherwise, unrevealing. PHYSICAL EXAMINATION: VITAL SIGNS: Blood pressure 170/97, heart rate 85, respiratory rate 16, afebrile, oxygen saturation 99% on room air. Venous pressure elevated. LUNGS: With bilateral rales. CARDIAC: Regular rhythm and rate. Normal S1, S2 with a fourth heart sound and a 1/6 systolic murmur at the apex. ABDOMEN: Soft, nontender. Palpable bruit over fistula. EXTREMITIES: Trace dependent edema. LABORATORY AND DIAGNOSTIC DATA: Chest x-ray reveals interstitial edema and airspace disease, infiltrates versus edema noted and small bilateral pleural effusions noted as well. An EKG was notable for sinus rhythm with no acute abnormalities. Laboratories notable for white count 7, hemoglobin 14.5. Sodium 140, potassium 6.7, BUN 38, creatinine 7.3. Pro-natriuretic peptide over 35,000. Troponin 0.039. IMPRESSION: 1. Acute on chronic diastolic congestive heart failure. 2. Probable community-acquired pneumonia. 3. Hyperkalemia. 4. Elevated hemoglobin in the setting of renal failure, may be due to excessive Epogen dosing. 5. Diabetes mellitus. 6. Hypertension with hypertensive heart disease and hypertensive urgency. PLAN: Hold Epogen, Kayexalate. Hemodialysis with ultrafiltration. Titrate antihypertensive regimen. Antimicrobials and respiratory hygiene per primary care physician. Echocardiogram. We will follow. Kevan Parks M.D. DR: DULCE MARIA JOB#: [id number] CC:
[2020-01-25 08:00] VITALS: BP 132/59
--- NOTE | 2020-01-25 08:35 | General Progress Note ---
Subjective Allergies: Coded Allergies: PENICILLINS (Verified Allergy, Unknown, 01/30/17) hives 01/30/17: ITCHING WITH ZOSYN Subjective no sob cards/renal noted Objective Last 24 Hour Vital Signs Date Time Temp Pulse Resp B/P (MAP) Pulse Ox O2 Delivery O2 Flow Rate FiO2 01/25/20 06:25 124/65 01/25/20 04:00 97.9 70 17 124/65 (84) 100 01/25/20 04:00 67 01/25/20 00:36 153/87 01/25/20 00:36 78 153/87 01/25/20 00:00 79 01/24/20 23:56 96.3 78 17 153/87 (109) 100 01/24/20 21:00 Room Air 01/24/20 20:00 87 01/24/20 20:00 97.5 85 16 170/97 (121) 99 01/24/20 19:05 175/70 01/24/20 18:25 175/70 01/24/20 17:09 Room Air 01/24/20 16:00 95 01/24/20 15:00 98.4 96 20 181/99 98 Room Air 01/24/20 13:00 98.3 89 20 186/91 99 Room Air 01/24/20 11:00 97.8 96 20 181/104 98 Room Air 01/24/20 11:00 88 20 Room Air 01/24/20 10:43 97.3 91 20 189/102 (131) 95 Room Air Intake and Output 01/24/20 01/25/20 19:00 07:00 Intake Total 120 ml 220 ml Output Total 2000 ml Balance 120 ml -1780 ml Intake Oral 120 ml 220 ml Output Hemodialysis UF 2000 ml Laboratory Tests 01/24/20 11:35: White Blood Count 7.0, Red Blood Count 5.22, Hemoglobin 14.5, Hematocrit 50.5H, Mean Corpuscular Volume 97, Mean Corpuscular Hemoglobin 27.8, Mean Corpuscular Hemoglobin Concent 28.7L, Red Cell Distribution Width 18.9H, Platelet Count 110L , Mean Platelet Volume 9.3, Neutrophils (%) (Auto) 81.3H, Lymphocytes (%) (Auto) 7.9L, Monocytes (%) (Auto) 8.6, Eosinophils (%) (Auto) 0.2, Basophils (%) (Auto) 2.0, Sodium Level 140, Potassium Level 6.7*H, Chloride Level 102, Carbon Dioxide Level 21, Anion Gap 16H, Blood Urea Nitrogen 38H, Creatinine 7.3H, Estimat Glomerular Filtration Rate 6.0, Glucose Level 139H, Calcium Level 9.5, Total Bilirubin 1.8H, Direct Bilirubin 0.3, Aspartate Amino Transf (AST/SGOT) 36, Alanine Aminotransferase (ALT/SGPT) 14, Alkaline Phosphatase 174H, Troponin I 0.039, Pro-B-Type Natriuretic Peptide > 79688X, Total Protein 7.8, Albumin 3.9, Globulin 3.9 01/25/20 05:53: Hepatitis B Surface Antigen [Pending] Height (Feet): 4 Height (Inches): 9.00 Weight (Pounds): 116 Objective WDWN NAD clear breath sounds bilaterally without rhonchi or wheeze [id number] without MRG NABS nontender no HSM no CCE nonfocal Assessment/Plan Assessment/Plan: IMPRESSION hypertension out of control CRF elevated BNP abnormal CXR consider pneumonia vs fluid overload diabetes hypertension PLAN home meds HD with UF oxygen monitor imaging cards and renal to optimize bp support close monitoring and stabilization prior to dc impression, plan, and exam edited and reviewed in detail care discussed with Josue Rosales MD Jan 25, 2020 08:35
[2020-01-25 08:40] LABS: BASOPHILS % (AUTO) 1.5 % (0.0-2.0); EOSINOPHILS % (AUTO) 2.7 % (0.0-3.0); HEMOGLOBIN 12.6 G/DL (12.0-16.0); LYMPHOCYTES % (AUTO) 14.3 % (20.0-45.0); MEAN CORPUSCULAR VOLUME 92 FL (80-99); MONOCYTES % (AUTO) 9.7 % (1.0-10.0); NEUTROPHILS % (AUTO) 71.7 % (45.0-75.0); PLATELET COUNT 109 K/UL (150-450); RED BLOOD COUNT 4.44 M/UL (4.20-5.40); WHITE BLOOD COUNT 4.8 K/UL (4.8-10.8)
[2020-01-25 08:44] LABS: ANION GAP 7 mmol/L (5-15); BLOOD UREA NITROGEN 15 mg/dL (7-18); CALCIUM 9.1 MG/DL (8.5-10.1); CARBON DIOXIDE 33 MMOL/L (21-32); CHLORIDE 98 MMOL/L (98-107); CREATININE 4.4 MG/DL (0.55-1.30); POTASSIUM 3.3 MMOL/L (3.5-5.1); SODIUM 137 MMOL/L (136-145)
[2020-01-25] MEDS: Docusate 100mg cap ORAL SCH ×3 (08:46→18:00)
[2020-01-25] MEDS: Pantoprazole Inj IVP SCH (08:47)
[2020-01-25 08:56] LABS: ALANINE AMINOTRANSFERASE 10 U/L (12-78); ALBUMIN 3.3 G/DL (3.4-5.0); ALKALINE PHOSPHATASE 157 U/L (46-116); ASPARTATE AMINO TRANSFERASE 26 U/L (15-37); BILIRUBIN,TOTAL 1.3 MG/DL (0.2-1.0); PHOSPHORUS 2.5 MG/DL (2.5-4.9)
[2020-01-25 08:57] LABS: BILIRUBIN,DIRECT 0.4 MG/DL (0.0-0.3)
[2020-01-25] MEDS: Heparin 5000 units/ml inj SUBQ SCH ×2 (08:59→21:00)
[2020-01-25] MEDS ORDERED: HydrOXYzine tab 25mg tab ORAL SCH (09:30)
[2020-01-25] MEDS ORDERED: HydrOXYzine tab 25mg tab ORAL PRN (09:30)
[2020-01-25] MEDS: BETAMETHASONE 0.05% TOPIC SCH ×2 (11:07→18:04)
--- NOTE | 2020-01-25 11:38 | Nephrology Progress Note ---
Assessment/Plan Problem List: (1) ESRD (end stage renal disease) on dialysis (2) Hyperkalemia (3) CHF (congestive heart failure) (4) Rash and other nonspecific skin eruption Assessment End-stage renal disease Presented with volume overload and hyperkalemia History of pneumonia and COVID-19 infection Hypertension [id number] History of diabetes mellitus Plan January 24: Patient was dialyzed last night. Today's labs reviewed. Hyperkalemia corrected. Patient breathing easier. Complains of itching over her back. Dexamethasone cream ordered. Next dialysis tomorrow January 25. 2D echocardiogram ordered results pending. Subjective ROS Limited/Unobtainable: No Constitutional: Reports: malaise, other - Complains of itching over her back Objective Objective Last 24 Hour Vital Signs Date Time Temp Pulse Resp B/P (MAP) Pulse Ox O2 Delivery O2 Flow Rate FiO2 01/25/20 06:25 124/65 01/25/20 04:00 97.9 70 17 124/65 (84) 100 01/25/20 04:00 67 01/25/20 00:36 153/87 01/25/20 00:36 78 153/87 01/25/20 00:00 79 01/24/20 23:56 96.3 78 17 153/87 (109) 100 01/24/20 21:00 Room Air 01/24/20 20:00 87 01/24/20 20:00 97.5 85 16 170/97 (121) 99 01/24/20 19:05 175/70 01/24/20 18:25 175/70 01/24/20 17:09 Room Air 01/24/20 16:00 95 01/24/20 15:00 98.4 96 20 181/99 98 Room Air 01/24/20 13:00 98.3 89 20 186/91 99 Room Air Intake and Output 01/24/20 01/25/20 19:00 07:00 Intake Total 120 ml 220 ml Output Total 2000 ml Balance 120 ml -1780 ml Intake Oral 120 ml 220 ml Output Hemodialysis UF 2000 ml Current Medications Medications (Trade) Dose Ordered Sig/Sarah Route PRN Reason Start Time Stop Time Status Last Admin Dose Admin Acetaminophen (Tylenol) 650 mg Q4H PRN ORAL Mild Pain (Pain Scale 1-3) 01/24/20 17:00 02/23/20 16:59 01/24/20 21:57 Acetaminophen/ Hydrocodone Bitart ([place] 5/325) 1 tab Q4H PRN ORAL Moderate Pain (Pain Scale 4-6) 01/24/20 23:30 01/31/20 23:29 Acetaminophen/ Hydrocodone Bitart ([place] 5/325) 2 tab Q4H PRN ORAL Severe Pain (Pain Scale 7-10) 01/24/20 23:30 01/31/20 23:29 Betamethasone Dipropion Augmented (Diprolene AF) 1 applic TWICE A DAY TOPIC 01/25/20 10:00 04/24/20 09:59 01/25/20 11:07 Clonidine HCl (Catapres Tab) 0.1 mg Q4H PRN ORAL SBP > 160mmHg 01/24/20 17:00 04/23/20 16:59 01/24/20 18:25 Docusate Sodium (Colace) 100 mg THREE TIMES A DAY ORAL 01/25/20 09:00 02/24/20 08:59 01/25/20 08:46 Heparin Sodium (Porcine) (Heparin 5000 units/ml) 5,000 units EVERY 12 HOURS SUBQ 01/24/20 21:00 03/09/20 20:59 Hydralazine HCl (Apresoline) 25 mg Q6HR ORAL 01/24/20 18:45 04/23/20 18:44 01/25/20 06:25 Hydroxyzine HCl (Atarax) 25 mg Q6H PRN ORAL Itching 01/25/20 09:30 02/24/20 09:29 Levothyroxine Sodium (Synthroid) 100 mcg ACBREAKFAST ORAL 01/25/20 06:30 02/24/20 06:29 01/25/20 06:25 Nifedipine (Procardia XL) 30 mg BEDTIME ORAL 01/24/20 21:00 02/23/20 20:59 01/25/20 00:36 Pantoprazole (Protonix) 40 mg EVERY 12 HOURS IVP 01/24/20 21:00 02/23/20 20:59 01/25/20 08:47 Sevelamer Carbonate (Renvela) 1,600 mg THREE TIMES A DAY ORAL 01/24/20 18:00 04/23/20 17:59 01/25/20 08:47 Laboratory Tests 01/24/20 11:35: White Blood Count 7.0, Red Blood Count 5.22, Hemoglobin 14.5, Hematocrit 50.5H, Mean Corpuscular Volume 97, Mean Corpuscular Hemoglobin 27.8, Mean Corpuscular Hemoglobin Concent 28.7L, Red Cell Distribution Width 18.9H, Platelet Count 110L , Mean Platelet Volume 9.3, Neutrophils (%) (Auto) 81.3H, Lymphocytes (%) (Auto) 7.9L, Monocytes (%) (Auto) 8.6, Eosinophils (%) (Auto) 0.2, Basophils (%) (Auto) 2.0, Sodium Level 140, Potassium Level 6.7*H, Chloride Level 102, Carbon Dioxide Level 21, Anion Gap 16H, Blood Urea Nitrogen 38H, Creatinine 7.3H, Estimat Glome rular Filtration Rate 6.0, Glucose Level 139H, Calcium Level 9.5, Total Bilirubin 1.8H, Direct Bilirubin 0.3, Aspartate Amino Transf (AST/SGOT) 36, Alanine Aminotransferase (ALT/SGPT) 14, Alkaline Phosphatase 174H, Troponin I 0.039, Pro-B-Type Natriuretic Peptide > 81244D, Total Protein 7.8, Albumin 3.9, Globulin 3.9 01/25/20 05:53: White Blood Count 4.8, Red Blood Count 4.44, Hemoglobin 12.6, Hematocrit 41.0, Mean Corpuscular Volume 92, Mean Corpuscular Hemoglobin 28.4, Mean Corpuscular Hemoglobin Concent 30.8L, Red Cell Distribution Width 18.0H, Platelet Count 109L , Mean Platelet Volume 9.3, Neutrophils (%) (Auto) 71.7, Lymphocytes (%) (Auto) 14.3L, Monocytes (%) (Auto) 9.7, Eosinophils (%) (Auto) 2.7, Basophils (%) (Auto) 1.5, Sodium Level 137, Potassium Level 3.3#L, Chloride Level 98, Carbon Dioxide Level 33H, Anion Gap 7, Blood Urea Nitrogen 15, Creatinine 4.4H, Estimat Glomerular Filtration Rate 10.8, Glucose Level 68L, Calcium Level 9.1, Total Bilirubin 1.3H, Direct Bilirubin 0.4H, Aspartate Amino Transf (AST/SGOT) 26, Alanine Aminotransferase (ALT/SGPT) 10L, Alkaline Phosphatase 157H, Pro-B-Type Natriuretic Peptide > 96547X, Total Protein 6.6, Albumin 3.3L, Globulin 3.3, Phosphorus Level 2.5, C-Reactive Protein, Quantitative 3.5H, Albumin/Globulin Ratio 1.0, Hepatitis B Surface Antigen [Pending] Height (Feet): 4 Height (Inches): 9.00 Weight (Pounds): 116 General Appearance: no apparent distress Respiratory/Chest: decreased breath sounds, other - Scratch rush over the back Abdomen: soft Rufus Mo MD Jan 25, 2020 11:38
[2020-01-25 12:00] VITALS: BP 126/58
--- NOTE | 2020-01-25 13:14 | Cardiology Report ---
APPROVED REPORT EXAM: Two-dimensional and M-mode echocardiogram with Doppler and color Doppler. INDICATION Congestive Heart Failure M-Mode DIMENSIONS IVSd0.7 (0.7-1.1cm)Left Atrium (MM)4.1 (1.6-4.0cm) LVDd4.9 (3.5-5.6cm)Aortic Root2.2 (2.0-3.7cm) PWd1.0 (0.7-1.1cm)Aortic Cusp Exc.1.6 (1.5-2.0cm) IVSs1.0 cmEPSS0.9 (>1.0cm) LVDs3.5 (2.5-4.0cm) PWs1.0 cm <Conclusion> Normal left ventricular chamber size, systolic function and wall motion to extent visualized. Left ventricular ejection fraction estimated to be 55-60%. No left ventricular hypertrophy. Small posterior pericardial effusion. Possible moderate posterior pleural effusion. All other cardiac chamber sizes are within normal limits. Mild focal aortic valve sclerosis with adequate cusp excursion. Mildly thickened mitral valve leaflets with normal excursion. Mitral annulus and aortic root calcification. Normal pulmonic valve structure. Normal tricuspid valve structure. IVC dilated at 2.1 cm and non-collapsing with respiration suggestive of increased RA pressure. A color flow and spectral Doppler study was performed and revealed: Trace aortic insufficiency. PG 18 mmhg, MG 9 mmhg across the aortic valve Mild mitral regurgitation. Mitral inflow indicate normal left ventricular diastolic function. Mild to moderate tricuspid regurgitation. Tricuspid systolic velocities suggests peak right ventricular systolic pressure of 49 mmHg, consistent with moderate pulmonary hypertension. No pulmonic regurgitation present.
[2020-01-25 16:00] VITALS: BP 134/59
[2020-01-25 20:00] VITALS: BP 151/64
--- NOTE | 2020-01-25 23:51 | Cardiology Progress Note ---
Subjective DATE OF SERVICE: Jan 25, 2020 s/p HD/UF Improved BP parameters 2d Echo: normal LVEF Still with SOB. Objective Last 24 Hour Vital Signs Date Time Temp Pulse Resp B/P (MAP) Pulse Ox O2 Delivery O2 Flow Rate FiO2 01/25/20 22:56 138/73 01/25/20 21:27 79 159/63 01/25/20 18:01 76 01/25/20 16:00 78 01/25/20 16:00 98.1 77 20 134/59 (84) 96 01/25/20 13:49 126/61 01/25/20 12:00 98.1 80 20 126/58 (80) 96 01/25/20 12:00 74 01/25/20 09:00 Room Air 01/25/20 08:00 97.6 73 20 132/59 (83) 100 01/25/20 08:00 76 01/25/20 06:25 124/65 01/25/20 04:00 97.9 70 17 124/65 (84) 100 01/25/20 04:00 67 01/25/20 00:36 153/87 01/25/20 00:36 78 153/87 01/25/20 00:00 79 01/24/20 23:56 96.3 78 17 153/87 (109) 100 ROS: no interval change HEENT: normal ENT inspection RHYTHM: NSR LUNGS: rales bilaterally CARDIAC: normal rate, regular rhythm, normal S1 and S2, gallop/S4 ABDOMEN: normal bowel sounds, non tender, soft, no organomegaly EXTREMITIES: normal range of motion, No edema Laboratory Tests Test 01/25/20 05:53 White Blood Count 4.8 K/UL (4.8-10.8) Red Blood Count 4.44 M/UL (4.20-5.40) Hemoglobin 12.6 G/DL (12.0-16.0) Hematocrit 41.0 % (37.0-47.0) Mean Corpuscular Volume 92 FL (80-99) Mean Corpuscular Hemoglobin 28.4 PG (27.0-31.0) Mean Corpuscular Hemoglobin Concent 30.8 G/DL (32.0-36.0) L Red Cell Distribution Width 18.0 % (11.6-14.8) H Platelet Count 109 K/UL (150-450) L Mean Platelet Volume 9.3 FL (6.5-10.1) Neutrophils (%) (Auto) 71.7 % (45.0-75.0) Lymphocytes (%) (Auto) 14.3 % (20.0-45.0) L Monocytes (%) (Auto) 9.7 % (1.0-10.0) Eosinophils (%) (Auto) 2.7 % (0.0-3.0) Basophils (%) (Auto) 1.5 % (0.0-2.0) Sodium Level 137 MMOL/L (136-145) Potassium Level 3.3 MMOL/L (3.5-5.1) #L Chloride Level 98 MMOL/L (98-107) Carbon Dioxide Level 33 MMOL/L (21-32) H Anion Gap 7 mmol/L (5-15) Blood Urea Nitrogen 15 mg/dL (7-18) Creatinine 4.4 MG/DL (0.55-1.30) H Estimat Glomerular Filtration Rate 10.8 mL/min (>60) Glucose Level 68 MG/DL (74-106) L Calcium Level 9.1 MG/DL (8.5-10.1) Phosphorus Level 2.5 MG/DL (2.5-4.9) Total Bilirubin 1.3 MG/DL (0.2-1.0) H Direct Bilirubin 0.4 MG/DL (0.0-0.3) H Aspartate Amino Transf (AST/SGOT) 26 U/L (15-37) Alanine Aminotransferase (ALT/SGPT) 10 U/L (12-78) L Alkaline Phosphatase 157 U/L (46-116) H C-Reactive Protein, Quantitative 3.5 mg/dL (0.00-0.90) H Pro-B-Type Natriuretic Peptide > 40372 pg/mL (0-125) H Total Protein 6.6 G/DL (6.4-8.2) Albumin 3.3 G/DL (3.4-5.0) L Globulin 3.3 g/dL Albumin/Globulin Ratio 1.0 (1.0-2.7) Hepatitis B Surface Antigen Pending Assessment/Plan Assessment/Plan Hypertensive urgency ESRD Ac/chronic diastolic CHF Possible comm acq PNA IRDM HD with UF TItrate and maximize antiHTN and antifailure regimen Empiric abx Insulin titration Statin rx for LDL goal under 70 Kevan Parks MD Jan 25, 2020 23:51
[2020-01-26] VITALS: BP 111/57
[2020-01-26 04:00] VITALS: BP_SYST 154; BP_SYST 160; BP_DIAS 66; BP_DIAS 72
[2020-01-26] MEDS: HydrALAZINE 25mg tab ORAL SCH ×3 (05:57→21:00)
[2020-01-26 07:18] LABS: EOSINOPHILS % (AUTO) 1.8 % (0.0-3.0); HEMATOCRIT 46.2 % (37.0-47.0); HEMOGLOBIN 13.9 G/DL (12.0-16.0); LYMPHOCYTES % (AUTO) 4.7 % (20.0-45.0); MEAN CORPUSCULAR VOLUME 93 FL (80-99); MONOCYTES % (AUTO) 7.9 % (1.0-10.0); NEUTROPHILS % (AUTO) 83.6 % (45.0-75.0); PLATELET COUNT 143 K/UL (150-450); RED BLOOD COUNT 4.95 M/UL (4.20-5.40); RED CELL DISTRIBUTION WIDTH 18.4 % (11.6-14.8); WHITE BLOOD COUNT 7.3 K/UL (4.8-10.8)
[2020-01-26 08:00] VITALS: BP 122/55
[2020-01-26 08:00] LABS: ALANINE AMINOTRANSFERASE 17 U/L (12-78); ALBUMIN 3.7 G/DL (3.4-5.0); ALKALINE PHOSPHATASE 170 U/L (46-116); ANION GAP 10 mmol/L (5-15); ASPARTATE AMINO TRANSFERASE 33 U/L (15-37); BLOOD UREA NITROGEN 28 mg/dL (7-18); CALCIUM 8.8 MG/DL (8.5-10.1); CARBON DIOXIDE 30 MMOL/L (21-32); CHLORIDE 97 MMOL/L (98-107); CHOLESTEROL 189 MG/DL (< 200); CREATININE 6.7 MG/DL (0.55-1.30); GAMMA GLUTAMYL TRANSPEPTIDASE 40 U/L (5-85); HDL CHOLESTEROL 40 MG/DL (40-60); PHOSPHORUS 2.4 MG/DL (2.5-4.9); SODIUM 137 MMOL/L (136-145); TRIGLYCERIDES 157 MG/DL (30-150)
[2020-01-26] MEDS: Docusate 100mg cap ORAL SCH ×3 (09:53→17:29)
[2020-01-26] MEDS: Heparin 5000 units/ml inj SUBQ SCH ×2 (09:57→21:03)
[2020-01-26] MEDS: BETAMETHASONE 0.05% TOPIC SCH ×2 (10:03→17:29)
[2020-01-26] MEDS: HydrOXYzine tab 25mg tab ORAL SCH ×3 (11:44→22:48)
[2020-01-26 12:10] VITALS: BP 131/62
--- NOTE | 2020-01-26 12:13 | Nephrology Progress Note ---
Assessment/Plan Problem List: (1) ESRD (end stage renal disease) on dialysis (2) Hyperkalemia (3) CHF (congestive heart failure) (4) Rash and other nonspecific skin eruption Assessment End-stage renal disease Presented with volume overload and hyperkalemia History of pneumonia and COVID-19 infection Hypertension [id number] History of diabetes mellitus Plan January 25: Was dialyzed today. Continue to have itching in her back area. Atarax ordered [id number]. Continue per current management. Labs reviewed. Medication reviewed. January 24: Patient was dialyzed last night. Today's labs reviewed. Hyperkalemia corrected. Patient breathing easier. Complains of itching over her back. Dexamethasone cream ordered. Next dialysis tomorrow January 25. 2D echocardiogram ordered results pending. Subjective ROS Limited/Unobtainable: No Constitutional: Reports: malaise Objective Objective Last 24 Hour Vital Signs Date Time Temp Pulse Resp B/P (MAP) Pulse Ox O2 Delivery O2 Flow Rate FiO2 01/26/20 09:06 Room Air 01/26/20 08:33 81 01/26/20 08:00 97.7 81 16 122/55 (77) 98 01/26/20 05:57 132/61 01/26/20 04:00 97.6 80 18 160/72 (101) 95 01/26/20 03:32 79 01/26/20 00:00 98.3 79 18 111/57 (75) 96 01/25/20 23:47 77 01/25/20 22:56 138/73 01/25/20 21:27 79 159/63 01/25/20 21:00 Room Air 01/25/20 20:19 81 01/25/20 20:00 97.9 81 20 151/64 (93) 94 01/25/20 18:01 76 01/25/20 16:00 78 01/25/20 16:00 98.1 77 20 134/59 (84) 96 01/25/20 13:49 126/61 Intake and Output 01/25/20 01/26/20 19:00 07:00 Intake Total 340 ml 440 ml Balance 340 ml 440 ml Intake Oral 340 ml 440 ml # Voids 1 Current Medications Medications (Trade) Dose Ordered Sig/Sarah Route PRN Reason Start Time Stop Time Status Last Admin Dose Admin Acetaminophen (Tylenol) 650 mg Q4H PRN ORAL Mild Pain (Pain Scale 1-3) 01/24/20 17:00 02/23/20 16:59 01/24/20 21:57 Acetaminophen/ Hydrocodone Bitart ([place] 5/325) 1 tab Q4H PRN ORAL Moderate Pain (Pain Scale 4-6) 01/24/20 23:30 01/31/20 23:29 Acetaminophen/ Hydrocodone Bitart ([place] 5/325) 2 tab Q4H PRN ORAL Severe Pain (Pain Scale 7-10) 01/24/20 23:30 01/31/20 23:29 Betamethasone Dipropion Augmented (Diprolene AF) 1 applic TWICE A DAY TOPIC 01/25/20 10:00 04/24/20 09:59 01/26/20 10:03 Clonidine HCl (Catapres Tab) 0.1 mg Q4H PRN ORAL SBP > 160mmHg 01/24/20 17:00 04/23/20 16:59 01/24/20 18:25 Docusate Sodium (Colace) 100 mg THREE TIMES A DAY ORAL 01/25/20 09:00 02/24/20 08:59 01/26/20 09:53 Heparin Sodium (Porcine) (Heparin 5000 units/ml) 5,000 units EVERY 12 HOURS SUBQ 01/24/20 21:00 03/09/20 20:59 01/26/20 09:57 Hydralazine HCl (Apresoline) 25 mg Q8HR ORAL 01/26/20 14:00 04/25/20 13:59 Hydroxyzine HCl (Atarax) 25 mg Q6HR ORAL 01/26/20 12:00 02/25/20 11:59 01/26/20 11:44 Levothyroxine Sodium (Synthroid) 100 mcg ACBREAKFAST ORAL 01/25/20 06:30 02/24/20 06:29 01/26/20 05:56 Nifedipine (Procardia XL) 30 mg BEDTIME ORAL 01/24/20 21:00 02/23/20 20:59 01/25/20 21:27 Pantoprazole (Protonix) 40 mg EVERY 12 HOURS ORAL 01/25/20 21:00 02/24/20 20:59 01/26/20 09:53 Sevelamer Carbonate (Renvela) 1,600 mg THREE TIMES A DAY ORAL 01/24/20 18:00 04/23/20 17:59 01/26/20 09:54 Laboratory Tests 01/26/20 06:28: White Blood Count 7.3#, Red Blood Count 4.95, Hemoglobin 13.9, Hematocrit 46.2, Mean Corpuscular Volume 93, Mean Corpuscular Hemoglobin 28.2, Mean Corpuscular Hemoglobin Concent 30.2L, Red Cell Distribution Width 18.4H, Platelet Count 143L , Mean Platelet Volume 8.8, Neutrophils (%) (Auto) 83.6H, Lymphocytes (%) (Auto) 4.7L, Monocytes (%) (Auto) 7.9, Eosinophils (%) (Auto) 1.8, Basophils (%) (Auto) 2.0, Sodium Level 137, Potassium Level 3.0L, Chloride Level 97L, Carbon Dioxide Level 30, Anion Gap 10, Blood Urea Nitrogen 28H, Creatinine 6.7#H, Estimat Glomerular Filtration Rate 6.7, Glucose Level 96, Hemoglobin A1c 5.7, Calcium L evel 8.8, Phosphorus Level 2.4L, Magnesium Level 2.7H, Total Bilirubin 1.0, Gamma Glutamyl Transpeptidase 40, Aspartate Amino Transf (AST/SGOT) 33, Alanine Aminotransferase (ALT/SGPT) 17, Alkaline Phosphatase 170H, C-Reactive Protein, Quantitative 2.9H, Pro-B-Type Natriuretic Peptide > 59000H, Total Protein 7.4, Albumin 3.7, Globulin 3.7, Albumin/Globulin Ratio 1.0, Triglycerides Level 157H, Cholesterol Level 189, LDL Cholesterol 109H, HDL Cholesterol 40, Cholesterol/HDL Ratio 4.7H, Thyroid Stimulating Hormone (TSH) 3.396, Free Thyroxine 1.44, Free Triiodothyronine 1.6L Height (Feet): 4 Height (Inches): 9.00 Weight (Pounds): 116 General Appearance: no apparent distress Cardiovascular: normal rate Respiratory/Chest: decreased breath sounds Abdomen: soft Rufus Mo MD Jan 26, 2020 12:13
--- NOTE | 2020-01-26 13:03 | General Progress Note ---
Subjective Allergies: Coded Allergies: PENICILLINS (Verified Allergy, Unknown, 01/30/17) hives 01/30/17: ITCHING WITH ZOSYN Subjective no sob cards/renal noted Objective Last 24 Hour Vital Signs Date Time Temp Pulse Resp B/P (MAP) Pulse Ox O2 Delivery O2 Flow Rate FiO2 01/26/20 12:15 80 01/26/20 12:10 97.7 68 18 131/62 (85) 98 01/26/20 09:06 Room Air 01/26/20 08:33 81 01/26/20 08:00 97.7 81 16 122/55 (77) 98 01/26/20 05:57 132/61 01/26/20 04:00 97.6 80 18 160/72 (101) 95 01/26/20 03:32 79 01/26/20 00:00 98.3 79 18 111/57 (75) 96 01/25/20 23:47 77 01/25/20 22:56 138/73 01/25/20 21:27 79 159/63 01/25/20 21:00 Room Air 01/25/20 20:19 81 01/25/20 20:00 97.9 81 20 151/64 (93) 94 01/25/20 18:01 76 01/25/20 16:00 78 01/25/20 16:00 98.1 77 20 134/59 (84) 96 01/25/20 13:49 126/61 Intake and Output 01/25/20 01/26/20 19:00 07:00 Intake Total 340 ml 440 ml Balance 340 ml 440 ml Intake Oral 340 ml 440 ml # Voids 1 Laboratory Tests 01/26/20 06:28: White Blood Count 7.3#, Red Blood Count 4.95, Hemoglobin 13.9, Hematocrit 46.2, Mean Corpuscular Volume 93, Mean Corpuscular Hemoglobin 28.2, Mean Corpuscular Hemoglobin Concent 30.2L, Red Cell Distribution Width 18.4H, Platelet Count 143L , Mean Platelet Volume 8.8, Neutrophils (%) (Auto) 83.6H, Lymphocytes (%) (Auto) 4.7L, Monocytes (%) (Auto) 7.9, Eosinophils (%) (Auto) 1.8, Basophils (%) (Auto) 2.0, Sodium Level 137, Potassium Level 3.0L, Chloride Level 97L, Carbon Dioxide Level 30, Anion Gap 10, Blood Urea Nitrogen 28H, Creatinine 6.7#H, Estimat Glomerular Filtration Rate 6.7, Glucose Level 96, Hemoglobin A1c 5.7, Calcium Level 8.8, Phosphorus Level 2.4L, Magnesium Level 2.7H, Total Bilirubin 1.0, Gamma Glutamyl Transpeptidase 40, Aspartate Amino Transf (AST/SGOT) 33, Alanine Aminotransferase (ALT/SGPT) 17, Alkaline Phosphatase 170H, C-Reactive Protein, Quantitative 2.9H, Pro-B-Type Natriuretic Peptide > 07552Z, Total Protein 7.4, Albumin 3.7, Globulin 3.7, Albumin/Globulin Ratio 1.0, Triglycerides Level 157H, Cholesterol Level 189, LDL Cholesterol 109H, HDL Cholesterol 40, Cholesterol/HDL Ratio 4.7H, Thyroid Stimulating Hormone (TSH) 3.396, Free Thyroxine 1.44, Free Triiodothyronine 1.6L Height (Feet): 4 Height (Inches): 9.00 Weight (Pounds): 116 Objective WDWN NAD clear breath sounds bilaterally without rhonchi or wheeze [id number] without MRG NABS nontender no HSM no CCE nonfocal Assessment/Plan Assessment/Plan: IMPRESSION hypertension out of control CRF elevated BNP abnormal CXR consider pneumonia vs fluid overload diabetes hypertension pruritis PLAN repeat CXR home meds HD with UF oxygen monitor imaging cards and renal to optimize bp support close monitoring and stabilization prior to dc impression, plan, and exam edited and reviewed in detail care discussed with Josue Rosales MD Jan 26, 2020 13:03
[2020-01-26] MEDS ORDERED: Milk of Magnesia 30ml Ud ORAL PRN (15:30)
[2020-01-26 16:00] VITALS: BP 141/61
[2020-01-26 20:00] VITALS: BP 154/67
--- NOTE | 2020-01-26 22:29 | Cardiology Progress Note ---
Subjective DATE OF SERVICE: Jan 26, 2020 Less SOB. Improved BP parameters 2d Echo: normal LVEF Objective Last 24 Hour Vital Signs Date Time Temp Pulse Resp B/P (MAP) Pulse Ox O2 Delivery O2 Flow Rate FiO2 01/26/20 21:00 154/67 01/26/20 21:00 94 154/67 01/26/20 21:00 Room Air 01/26/20 20:00 81 01/26/20 20:00 98.2 94 18 154/67 (96) 96 01/26/20 16:00 97.9 79 16 141/61 (87) 96 01/26/20 16:00 77 01/26/20 13:29 138/62 01/26/20 12:15 80 01/26/20 12:10 97.7 68 18 131/62 (85) 98 01/26/20 09:06 Room Air 01/26/20 08:33 81 01/26/20 08:00 97.7 81 16 122/55 (77) 98 01/26/20 05:57 132/61 01/26/20 04:00 97.6 80 18 160/72 (101) 95 01/26/20 03:32 79 01/26/20 00:00 98.3 79 18 111/57 (75) 96 01/25/20 23:47 77 01/25/20 22:56 138/73 ROS: no interval change HEENT: normal ENT inspection RHYTHM: NSR LUNGS: rales bilaterally CARDIAC: normal rate, regular rhythm, normal S1 and S2, gallop/S4 ABDOMEN: normal bowel sounds, non tender, soft, no organomegaly EXTREMITIES: normal range of motion, No edema Laboratory Tests Test 01/26/20 06:28 White Blood Count 7.3 K/UL (4.8-10.8) # Red Blood Count 4.95 M/UL (4.20-5.40) Hemoglobin 13.9 G/DL (12.0-16.0) Hematocrit 46.2 % (37.0-47.0) Mean Corpuscular Volume 93 FL (80-99) Mean Corpuscular Hemoglobin 28.2 PG (27.0-31.0) Mean Corpuscular Hemoglobin Concent 30.2 G/DL (32.0-36.0) L Red Cell Distribution Width 18.4 % (11.6-14.8) H Platelet Count 143 K/UL (150-450) L Mean Platelet Volume 8.8 FL (6.5-10.1) Neutrophils (%) (Auto) 83.6 % (45.0-75.0) H Lymphocytes (%) (Auto) 4.7 % (20.0-45.0) L Monocytes (%) (Auto) 7.9 % (1.0-10.0) Eosinophils (%) (Auto) 1.8 % (0.0-3.0) Basophils (%) (Auto) 2.0 % (0.0-2.0) Sodium Level 137 MMOL/L (136-145) Potassium Level 3.0 MMOL/L (3.5-5.1) L Chloride Level 97 MMOL/L (98-107) L Carbon Dioxide Level 30 MMOL/L (21-32) Anion Gap 10 mmol/L (5-15) Blood Urea Nitrogen 28 mg/dL (7-18) H Creatinine 6.7 MG/DL (0.55-1.30) #H Estimat Glomerular Filtration Rate 6.7 mL/min (>60) Glucose Level 96 MG/DL (74-106) Hemoglobin A1c 5.7 % (4.3-6.0) Calcium Level 8.8 MG/DL (8.5-10.1) Phosphorus Level 2.4 MG/DL (2.5-4.9) L Magnesium Level 2.7 MG/DL (1.8-2.4) H Total Bilirubin 1.0 MG/DL (0.2-1.0) Gamma Glutamyl Transpeptidase 40 U/L (5-85) Aspartate Amino Transf (AST/SGOT) 33 U/L (15-37) Alanine Aminotransferase (ALT/SGPT) 17 U/L (12-78) Alkaline Phosphatase 170 U/L (46-116) H C-Reactive Protein, Quantitative 2.9 mg/dL (0.00-0.90) H Pro-B-Type Natriuretic Peptide > 09300 pg/mL (0-125) H Total Protein 7.4 G/DL (6.4-8.2) Albumin 3.7 G/DL (3.4-5.0) Globulin 3.7 g/dL Albumin/Globulin Ratio 1.0 (1.0-2.7) Triglycerides Level 157 MG/DL (30-150) H Cholesterol Level 189 MG/DL (< 200) LDL Cholesterol 109 mg/dL (<100) H HDL Cholesterol 40 MG/DL (40-60) Cholesterol/HDL Ratio 4.7 (3.3-4.4) H Thyroid Stimulating Hormone (TSH) 3.396 uiU/mL (0.358-3.740) Free Thyroxine 1.44 NG/DL (0.76-1.46) Free Triiodothyronine 1.6 pg/mL (2.3-4.2) L Microbiology Date/Time Source Procedure Growth Status 01/24/20 13:53 Rectum - Final NO CARBAPENEM-RESISTANT ENTEROBACTERI... Complete 01/24/20 13:53 Nasal Nares MRSA Culture - Final NO METHICILLIN RESISTANT STAPH AUREUS... Complete Assessment/Plan Assessment/Plan Hypertensive urgency resolved Hypertension/HHD ESRD Ac/chronic diastolic CHF Possible comm acq PNA IRDM HD with UF Continue to ttrate and maximize antiHTN and antifailure regimen Empiric abx Insulin titration Statin rx for LDL goal under 70 Kevan Parks MD Jan 26, 2020 22:29
[2020-01-27] VITALS (7 sets, daily range): BP systolic 94–145; BP diastolic 44–71
[2020-01-27] MEDS: HydrALAZINE 25mg tab ORAL SCH ×2 (06:00→14:00)
[2020-01-27] MEDS: HydrOXYzine tab 25mg tab ORAL SCH ×3 (06:15→17:15)
[2020-01-27 07:15] LABS: EOSINOPHILS % (AUTO) 0.6 % (0.0-3.0); HEMATOCRIT 37.8 % (37.0-47.0); HEMOGLOBIN 12.2 G/DL (12.0-16.0); LYMPHOCYTES % (AUTO) 8.2 % (20.0-45.0); MEAN CORPUSCULAR VOLUME 86 FL (80-99); MONOCYTES % (AUTO) 7.1 % (1.0-10.0); NEUTROPHILS % (AUTO) 83.1 % (45.0-75.0); PLATELET COUNT 148 K/UL (150-450); RED BLOOD COUNT 4.38 M/UL (4.20-5.40); RED CELL DISTRIBUTION WIDTH 19.4 % (11.6-14.8); WHITE BLOOD COUNT 6.6 K/UL (4.8-10.8)
[2020-01-27 07:36] LABS: ALBUMIN 3.4 G/DL (3.4-5.0); ALKALINE PHOSPHATASE 145 U/L (46-116); ANION GAP 8 mmol/L (5-15); ASPARTATE AMINO TRANSFERASE 20 U/L (15-37); BLOOD UREA NITROGEN 37 mg/dL (7-18); CALCIUM 8.6 MG/DL (8.5-10.1); CARBON DIOXIDE 32 MMOL/L (21-32); CHLORIDE 98 MMOL/L (98-107); CREATININE 8.5 MG/DL (0.55-1.30); GAMMA GLUTAMYL TRANSPEPTIDASE 37 U/L (5-85); LACTATE DEHYDROGENASE 230 U/L (81-234); PHOSPHORUS 2.6 MG/DL (2.5-4.9); POTASSIUM 3.6 MMOL/L (3.5-5.1); SODIUM 137 MMOL/L (136-145)
[2020-01-27 08:12] LABS: ALANINE AMINOTRANSFERASE 16 U/L (12-78); BILIRUBIN,TOTAL 0.8 MG/DL (0.2-1.0)
--- NOTE | 2020-01-27 08:40 | General Progress Note ---
Subjective Allergies: Coded Allergies: PENICILLINS (Verified Allergy, Unknown, 01/30/17) hives 01/30/17: ITCHING WITH ZOSYN Subjective no sob cards/renal noted Objective Last 24 Hour Vital Signs Date Time Temp Pulse Resp B/P (MAP) Pulse Ox O2 Delivery O2 Flow Rate FiO2 01/27/20 04:59 98.6 77 20 143/71 (95) 96 01/27/20 03:35 78 01/27/20 00:00 98.1 81 20 145/70 (95) 95 01/26/20 23:32 80 01/26/20 21:00 154/67 01/26/20 21:00 94 154/67 01/26/20 21:00 Room Air 01/26/20 20:00 81 01/26/20 20:00 98.2 94 18 154/67 (96) 96 01/26/20 16:00 97.9 79 16 141/61 (87) 96 01/26/20 16:00 77 01/26/20 13:29 138/62 01/26/20 12:15 80 01/26/20 12:10 97.7 68 18 131/62 (85) 98 01/26/20 09:06 Room Air Intake and Output 01/26/20 01/27/20 18:59 06:59 Intake Total 390 ml 150 ml Balance 390 ml 150 ml Intake Oral 390 ml 150 ml # Voids 1 2 # Bowel Movements 2 Laboratory Tests 01/27/20 06:24: White Blood Count 6.6, Red Blood Count 4.38, Hemoglobin 12.2, Hematocrit 37.8, Mean Corpuscular Volume 86, Mean Corpuscular Hemoglobin 27.8, Mean Corpuscular Hemoglobin Concent 32.2, Red Cell Distribution Width 19.4H, Platelet Count 148L, Mean Platelet Volume 8.6, Neutrophils (%) (Auto) 83.1H, Lymphocytes (%) (Auto) 8.2L, Monocytes (%) (Auto) 7.1, Eosinophils (%) (Auto) 0.6, Basophils (%) (Auto) 1.0, Sodium Level 137, Potassium Level 3.6, Chloride Level 98, Carbon Dioxide Level 32, Anion Gap 8, Blood Urea Nitrogen 37H, Creatinine 8.5H, Estimat Glomerular Filtration Rate 5.0, Glucose Level 102, Calcium Level 8.6, Phosphorus Level 2.6, Magnesium Level 3.0H, Total Bilirubin 0.8, Gamma Glutamyl Transpeptidase 37, Aspartate Amino Transf (AST/SGOT) 20, Alanine Aminotransferase (ALT/SGPT) 16, Alkaline Phosphatase 145H, Lactate Dehydrogenase 230, C-Reactive Protein, Quantitative 2.1H, Pro-B-Type Natriuretic Peptide > 35 000H, Total Protein 6.9, Albumin 3.4, Globulin 3.5, Albumin/Globulin Ratio 1.0 Height (Feet): 4 Height (Inches): 9.00 Weight (Pounds): 116 Objective WDWN NAD clear breath sounds bilaterally without rhonchi or wheeze [id number] without MRG NABS nontender no HSM no CCE nonfocal Assessment/Plan Assessment/Plan: IMPRESSION hypertension out of control CRF elevated BNP abnormal CXR consider pneumonia vs fluid overload diabetes hypertension pruritis PLAN repeat CXR pending home meds HD with UF oxygen monitor imaging cards and renal to optimize bp support close monitoring and stabilization prior to dc d/w renal as to dc planning impression, plan, and exam edited and reviewed in detail care discussed with Josue Rosales MD Jan 27, 2020 08:40
--- NOTE | 2020-01-27 08:44 | Diagnostic Imaging Report ---
EXAM: XR Chest, 1 View CLINICAL HISTORY: SOB TECHNIQUE: Frontal view of the chest. COMPARISON: Chest radiograph January 24, 2020 FINDINGS/IMPRESSION: Small bilateral pleural effusions. Mild-moderate vascular congestion. Correlate for fluid overload. Overall, there is mild improvement when compared to the previous radiograph from January 24, 2020. Cardiomegaly. Left axillary clips, correlate with surgical history.
[2020-01-27] MEDS: Docusate 100mg cap ORAL SCH ×3 (09:00→17:15)
[2020-01-27] MEDS: BETAMETHASONE 0.05% TOPIC SCH ×2 (09:39→17:15)
[2020-01-27] MEDS: Heparin 5000 units/ml inj SUBQ SCH ×2 (09:39→21:00)
--- NOTE | 2020-01-27 11:05 | Nephrology Progress Note ---
Assessment/Plan Problem List: (1) ESRD (end stage renal disease) on dialysis (2) Hyperkalemia (3) CHF (congestive heart failure) (4) Rash and other nonspecific skin eruption Assessment End-stage renal disease Presented with volume overload and hyperkalemia History of pneumonia and COVID-19 infection Hypertension [id number] History of diabetes mellitus Plan January 26: Due for dialysis shortly. Otherwise stable. Continue as is. January 25: Was dialyzed today. Continue to have itching in her back area. Atarax ordered [id number]. Continue per current management. Labs reviewed. Medication reviewed. January 24: Patient was dialyzed last night. Today's labs reviewed. Hyperkalemia corrected. Patient breathing easier. Complains of itching over her back. Dexamethasone cream ordered. Next dialysis tomorrow January 25. 2D echocardiogram ordered results pending. Subjective ROS Limited/Unobtainable: No Constitutional: Reports: malaise, other - Itching over the back much improved Objective Objective Last 24 Hour Vital Signs Date Time Temp Pulse Resp B/P (MAP) Pulse Ox O2 Delivery O2 Flow Rate FiO2 01/27/20 09:14 Room Air 01/27/20 08:00 78 01/27/20 08:00 97.9 78 18 115/57 (76) 95 01/27/20 04:59 98.6 77 20 143/71 (95) 96 01/27/20 03:35 78 01/27/20 00:00 98.1 81 20 145/70 (95) 95 01/26/20 23:32 80 01/26/20 21:00 154/67 01/26/20 21:00 94 154/67 01/26/20 21:00 Room Air 01/26/20 20:00 81 01/26/20 20:00 98.2 94 18 154/67 (96) 96 01/26/20 16:00 97.9 79 16 141/61 (87) 96 01/26/20 16:00 77 01/26/20 13:29 138/62 01/26/20 12:15 80 01/26/20 12:10 97.7 68 18 131/62 (85) 98 Intake and Output 01/26/20 01/27/20 19:00 07:00 Intake Total 390 ml 150 ml Balance 390 ml 150 ml Intake Oral 390 ml 150 ml # Voids 1 2 # Bowel Movements 2 Current Medications Medications (Trade) Dose Ordered Sig/Sarah Route PRN Reason Start Time Stop Time Status Last Admin Dose Admin Acetaminophen (Tylenol) 650 mg Q4H PRN ORAL Mild Pain (Pain Scale 1-3) 01/24/20 17:00 02/23/20 16:59 01/26/20 17:37 Acetaminophen/ Hydrocodone Bitart ([place] 5/325) 1 tab Q4H PRN ORAL Moderate Pain (Pain Scale 4-6) 01/24/20 23:30 01/31/20 23:29 Acetaminophen/ Hydrocodone Bitart ([place] 5/325) 2 tab Q4H PRN ORAL Severe Pain (Pain Scale 7-10) 01/24/20 23:30 01/31/20 23:29 Betamethasone Dipropion Augmented (Diprolene AF) 1 applic TWICE A DAY TOPIC 01/25/20 10:00 04/24/20 09:59 01/27/20 09:39 Clonidine HCl (Catapres Tab) 0.1 mg Q4H PRN ORAL SBP > 160mmHg 01/24/20 17:00 04/23/20 16:59 01/24/20 18:25 Docusate Sodium (Colace) 100 mg THREE TIMES A DAY ORAL 01/25/20 09:00 02/24/20 08:59 01/26/20 17:29 Heparin Sodium (Porcine) (Heparin 5000 units/ml) 5,000 units EVERY 12 HOURS SUBQ 01/24/20 21:00 03/09/20 20:59 01/27/20 09:39 Hydralazine HCl (Apresoline) 25 mg Q8HR ORAL 01/26/20 14:00 04/25/20 13:59 01/26/20 21:00 Hydroxyzine HCl (Atarax) 25 mg Q6HR ORAL 01/26/20 12:00 02/25/20 11:59 01/27/20 06:15 Levothyroxine Sodium (Synthroid) 100 mcg ACBREAKFAST ORAL 01/25/20 06:30 02/24/20 06:29 01/27/20 06:15 Magnesium Hydroxide (Mom) 30 ml DAILYPRN PRN ORAL Constipation 01/26/20 15:30 02/25/20 15:29 11/25/20 17:29 Nifedipine (Procardia XL) 30 mg BEDTIME ORAL 01/24/20 21:00 02/23/20 20:59 01/26/20 21:00 Pantoprazole (Protonix) 40 mg EVERY 12 HOURS ORAL 01/25/20 21:00 02/24/20 20:59 01/26/20 21:00 Sevelamer Carbonate (Renvela) 1,600 mg THREE TIMES A DAY ORAL 01/24/20 18:00 04/23/20 17:59 01/26/20 17:28 Laboratory Tests 01/27/20 06:24: White Blood Count 6.6, Red Blood Count 4.38, Hemoglobin 12.2, Hematocrit 37.8, Mean Corpuscular Volume 86, Mean Corpuscular Hemoglobin 27.8, Mean Corpuscular Hemoglobin Concent 32.2, Red Cell Distribution Width 19.4H, Platelet Count 148L, Mean Platelet Volume 8.6, Neutrophils (%) (Auto) 83.1H, Lymphocytes (%) (Auto) 8.2L, Monocytes (%) (Auto) 7.1, Eosinophils (%) (Auto) 0.6, Basophils (%) (Auto) 1.0, Sodium Level 137, Potassium Level 3.6, Chloride Level 98, Carbon Dioxide Level 32, Anion Gap 8, Blood Urea Nitrogen 37H, Creatinine 8.5H, Estimat Glomerular Filtration Rate 5.0, Glucose Level 102, Calcium Level 8.6, Phosphorus Level 2.6, Magnesium Level 3.0H, Total Bilirubin 0.8, Gamma Glutamyl Transpeptidase 37, Aspartate Amino Transf (AST/SGOT) 20, Alanine Aminotransferase (ALT/SGPT) 16, Alkaline Phosphatase 145H, Lactate Dehydrogenase 230, C-Reactive Protein, Quantitative 2.1H, Pro-B-Type Natriuretic Peptide > 51194A, Total Protein 6.9, Albumin 3.4, Globulin 3.5, Albumin/Globulin Ratio 1.0 Height (Feet): 4 Height (Inches): 9.00 Weight (Pounds): 116 General Appearance: no apparent distress Objective No change Rufus Mo MD Jan 27, 2020 11:04
--- NOTE | 2020-01-27 17:17 | Cardiology Progress Note ---
Subjective DATE OF SERVICE: Jan 27, 2020 Less SOB. Improved BP parameters 2d Echo: normal LVEF CXR (01/26) Still with CHF, but improved from prior studies BNP remains over 35K. Objective Last 24 Hour Vital Signs Date Time Temp Pulse Resp B/P (MAP) Pulse Ox O2 Delivery O2 Flow Rate FiO2 01/27/20 16:00 98.4 74 18 131/61 (84) 97 01/27/20 14:00 72 114/60 (78) 01/27/20 14:00 114/60 01/27/20 12:00 78 01/27/20 11:55 98.1 78 18 94/44 (61) 98 01/27/20 09:14 Room Air 01/27/20 08:00 78 01/27/20 08:00 78 01/27/20 08:00 97.9 78 18 115/57 (76) 95 01/27/20 04:59 98.6 77 20 143/71 (95) 96 01/27/20 03:35 78 01/27/20 00:00 98.1 81 20 145/70 (95) 95 01/26/20 23:32 80 01/26/20 21:00 154/67 01/26/20 21:00 94 154/67 01/26/20 21:00 Room Air 01/26/20 20:00 81 01/26/20 20:00 98.2 94 18 154/67 (96) 96 ROS: no interval change HEENT: normal ENT inspection RHYTHM: NSR LUNGS: rales bilaterally - few CARDIAC: normal rate, regular rhythm, normal S1 and S2, gallop/S4 ABDOMEN: normal bowel sounds, non tender, soft, no organomegaly EXTREMITIES: normal range of motion, No edema Laboratory Tests Test 01/27/20 06:24 White Blood Count 6.6 K/UL (4.8-10.8) Red Blood Count 4.38 M/UL (4.20-5.40) Hemoglobin 12.2 G/DL (12.0-16.0) Hematocrit 37.8 % (37.0-47.0) Mean Corpuscular Volume 86 FL (80-99) Mean Corpuscular Hemoglobin 27.8 PG (27.0-31.0) Mean Corpuscular Hemoglobin Concent 32.2 G/DL (32.0-36.0) Red Cell Distribution Width 19.4 % (11.6-14.8) H Platelet Count 148 K/UL (150-450) L Mean Platelet Volume 8.6 FL (6.5-10.1) Neutrophils (%) (Auto) 83.1 % (45.0-75.0) H Lymphocytes (%) (Auto) 8.2 % (20.0-45.0) L Monocytes (%) (Auto) 7.1 % (1.0-10.0) Eosinophils (%) (Auto) 0.6 % (0.0-3.0) Basophils (%) (Auto) 1.0 % (0.0-2.0) Sodium Level 137 MMOL/L (136-145) Potassium Level 3.6 MMOL/L (3.5-5.1) Chloride Level 98 MMOL/L (98-107) Carbon Dioxide Level 32 MMOL/L (21-32) Anion Gap 8 mmol/L (5-15) Blood Urea Nitrogen 37 mg/dL (7-18) H Creatinine 8.5 MG/DL (0.55-1.30) H Estimat Glomerular Filtration Rate 5.0 mL/min (>60) Glucose Level 102 MG/DL (74-106) Calcium Level 8.6 MG/DL (8.5-10.1) Phosphorus Level 2.6 MG/DL (2.5-4.9) Magnesium Level 3.0 MG/DL (1.8-2.4) H Total Bilirubin 0.8 MG/DL (0.2-1.0) Gamma Glutamyl Transpeptidase 37 U/L (5-85) Aspartate Amino Transf (AST/SGOT) 20 U/L (15-37) Alanine Aminotransferase (ALT/SGPT) 16 U/L (12-78) Alkaline Phosphatase 145 U/L (46-116) H Lactate Dehydrogenase 230 U/L (81-234) C-Reactive Protein, Quantitative 2.1 mg/dL (0.00-0.90) H Pro-B-Type Natriuretic Peptide > 50738 pg/mL (0-125) H Total Protein 6.9 G/DL (6.4-8.2) Albumin 3.4 G/DL (3.4-5.0) Globulin 3.5 g/dL Albumin/Globulin Ratio 1.0 (1.0-2.7) Assessment/Plan Assessment/Plan Hypertensive urgency resolved Hypertension/HHD ESRD Ac/chronic diastolic CHF Possible comm acq PNA IRDM HD with additional UF Continue to tirate and maximize antiHTN and antifailure regimen - limited by low range BP. Will DC hydralazine. Empiric abx Insulin titration Statin rx for LDL goal under 70 Kevan Parks MD Jan 27, 2020 17:17
[2020-01-28] VITALS: BP 136/75
[2020-01-28] MEDS: HydrOXYzine tab 25mg tab ORAL SCH ×3 (00:45→12:00)
[2020-01-28 04:00] VITALS: BP 135/61
[2020-01-28 08:00] VITALS: BP 143/61
[2020-01-28] MEDS: Docusate 100mg cap ORAL SCH (08:37)
[2020-01-28] MEDS: BETAMETHASONE 0.05% TOPIC SCH (08:39)
[2020-01-28] MEDS: Heparin 5000 units/ml inj SUBQ SCH (08:39)
--- NOTE | 2020-01-28 09:39 | General Progress Note ---
Subjective Allergies: Coded Allergies: PENICILLINS (Verified Allergy, Unknown, 01/30/17) hives 01/30/17: ITCHING WITH ZOSYN PIPERACILLIN (Verified Allergy, Unknown, 01/28/20) TAZOBACTAM (Verified Allergy, Unknown, 01/28/20) Subjective no sob cards/renal noted Objective Last 24 Hour Vital Signs Date Time Temp Pulse Resp B/P (MAP) Pulse Ox O2 Delivery O2 Flow Rate FiO2 01/28/20 08:00 97.0 71 20 143/61 (88) 96 01/28/20 04:00 64 01/28/20 04:00 97.7 64 19 135/61 (85) 99 01/28/20 00:00 97.9 71 20 136/75 (95) 97 01/28/20 00:00 72 01/27/20 21:45 74 142/64 01/27/20 21:00 Room Air 01/27/20 20:00 98.1 74 18 142/64 (90) 100 01/27/20 16:00 98.4 74 18 131/61 (84) 97 01/27/20 16:00 76 01/27/20 14:00 72 114/60 (78) 01/27/20 14:00 114/60 01/27/20 12:00 78 01/27/20 11:55 98.1 78 18 94/44 (61) 98 Intake and Output 01/27/20 01/28/20 19:00 07:00 Intake Total 240 ml 300 ml Output Total 2000 ml Balance -1760 ml 300 ml Intake Oral 240 ml 300 ml Output Hemodialysis UF 2000 ml # Voids 2 2 Height (Feet): 4 Height (Inches): 9.00 Weight (Pounds): 116 Objective WDWN NAD clear breath sounds bilaterally without rhonchi or wheeze [id number] without MRG NABS nontender no HSM no CCE nonfocal Assessment/Plan Assessment/Plan: IMPRESSION hypertension out of control CRF elevated BNP abnormal CXR consider pneumonia vs fluid overload diabetes hypertension pruritis PLAN repeat CXR noted home meds HD with UF oxygen monitor imaging dc today with home meds impression, plan, and exam edited and reviewed in detail care discussed with Josue Rosales MD Jan 28, 2020 09:39
--- NOTE | 2020-01-28 09:54 | Nephrology Progress Note ---
Assessment/Plan Problem List: (1) ESRD (end stage renal disease) on dialysis (2) Hyperkalemia (3) CHF (congestive heart failure) (4) Rash and other nonspecific skin eruption Assessment End-stage renal disease Presented with volume overload and hyperkalemia History of pneumonia and COVID-19 infection Hypertension [id number] History of diabetes mellitus Plan January 27: Patient was dialyzed yesterday. Feels better today. Itching on her back is less. No labs drawn today. Medication reviewed. Blood pressure stable. Okay to discharge from renal standpoint of view. Patient to follow-up with outpatient dialysis Friday. Continue Atarax and betamethasone for the itching. Discussed with NITHIN Horvath. January 26: Due for dialysis shortly. Otherwise stable. Continue as is. January 25: Was dialyzed today. Continue to have itching in her back area. Atarax ordered [id number]. Continue per current management. Labs reviewed. Medication reviewed. January 24: Patient was dialyzed last night. Today's labs reviewed. Hyperkalemia corrected. Patient breathing easier. Complains of itching over her back. Dexamethasone cream ordered. Next dialysis tomorrow January 25. 2D echocardiogram ordered results pending. Subjective ROS Limited/Unobtainable: No Constitutional: Reports: malaise Objective Objective Last 24 Hour Vital Signs Date Time Temp Pulse Resp B/P (MAP) Pulse Ox O2 Delivery O2 Flow Rate FiO2 01/28/20 08:00 97.0 71 20 143/61 (88) 96 01/28/20 04:00 64 01/28/20 04:00 97.7 64 19 135/61 (85) 99 01/28/20 00:00 97.9 71 20 136/75 (95) 97 01/28/20 00:00 72 01/27/20 21:45 74 142/64 01/27/20 21:00 Room Air 01/27/20 20:00 98.1 74 18 142/64 (90) 100 01/27/20 16:00 98.4 74 18 131/61 (84) 97 01/27/20 16:00 76 01/27/20 14:00 72 114/60 (78) 01/27/20 14:00 114/60 01/27/20 12:00 78 01/27/20 11:55 98.1 78 18 94/44 (61) 98 Intake and Output 01/27/20 01/28/20 18:59 06:59 Intake Total 240 ml 300 ml Output Total 2000 ml Balance -1760 ml 300 ml Intake Oral 240 ml 300 ml Output Hemodialysis UF 2000 ml # Voids 2 2 Current Medications Medications (Trade) Dose Ordered Sig/Sarah Route PRN Reason Start Time Stop Time Status Last Admin Dose Admin Acetaminophen (Tylenol) 650 mg Q4H PRN ORAL Mild Pain (Pain Scale 1-3) 01/24/20 17:00 02/23/20 16:59 01/26/20 17:37 Acetaminophen/ Hydrocodone Bitart ([place] 5/325) 1 tab Q4H PRN ORAL Moderate Pain (Pain Scale 4-6) 01/24/20 23:30 01/31/20 23:29 Acetaminophen/ Hydrocodone Bitart ([place] 5/325) 2 tab Q4H PRN ORAL Severe Pain (Pain Scale 7-10) 01/24/20 23:30 01/31/20 23:29 Betamethasone Dipropion Augmented (Diprolene AF) 1 applic TWICE A DAY TOPIC 01/25/20 10:00 04/24/20 09:59 01/28/20 08:39 Clonidine HCl (Catapres Tab) 0.1 mg Q4H PRN ORAL SBP > 160mmHg 01/24/20 17:00 04/23/20 16:59 01/24/20 18:25 Docusate Sodium (Colace) 100 mg THREE TIMES A DAY ORAL 01/25/20 09:00 02/24/20 08:59 01/28/20 08:37 Heparin Sodium (Porcine) (Heparin 5000 units/ml) 5,000 units EVERY 12 HOURS SUBQ 01/24/20 21:00 03/09/20 20:59 01/28/20 08:39 Hydroxyzine HCl (Atarax) 25 mg Q6HR ORAL 01/26/20 12:00 02/25/20 11:59 01/28/20 06:12 Levothyroxine Sodium (Synthroid) 100 mcg ACBREAKFAST ORAL 01/25/20 06:30 02/24/20 06:29 01/28/20 06:12 Magnesium Hydroxide (Mom) 30 ml DAILYPRN PRN ORAL Constipation 01/26/20 15:30 02/25/20 15:29 01/26/20 17:29 Nifedipine (Procardia XL) 30 mg BEDTIME ORAL 01/24/20 21:00 02/23/20 20:59 01/27/20 21:45 Pantoprazole (Protonix) 40 mg EVERY 12 HOURS ORAL 01/25/20 21:00 02/24/20 20:59 01/28/20 08:37 Pravastatin Sodium (Pravachol) 10 mg BEDTIME ORAL 01/27/20 21:00 02/26/20 20:59 01/27/20 21:45 Sevelamer Carbonate (Renvela) 1,600 mg THREE TIMES A DAY ORAL 01/24/20 18:00 04/23/20 17:59 01/28/20 08:37 No labs drawn today Height (Feet): 4 Height (Inches): 9.00 Weight (Pounds): 116 General Appearance: no apparent distress Cardiovascular: normal rate Respiratory/Chest: decreased breath sounds Abdomen: soft Objective No change Rufus Mo MD Jan 28, 2020 09:54
[2020-01-28] MEDS ORDERED: Tubing IV Secondary IV ONE (12:34)
[2020-01-28] MEDS ORDERED: NS 275ml ONE (12:34)
--- NOTE | 2020-01-28 14:16 | Cardiology Progress Note ---
Subjective DATE OF SERVICE: Jan 28, 2020 No SOB. Stabilized BP parameters 2d Echo: normal LVEF CXR (01/26) Still with CHF, but improved from prior studies BNP remains over 35K. Objective Last 24 Hour Vital Signs Date Time Temp Pulse Resp B/P (MAP) Pulse Ox O2 Delivery O2 Flow Rate FiO2 01/28/20 11:21 77 01/28/20 09:00 Room Air 01/28/20 08:00 97.0 71 20 143/61 (88) 96 01/28/20 08:00 71 01/28/20 04:00 64 01/28/20 04:00 97.7 64 19 135/61 (85) 99 01/28/20 00:00 97.9 71 20 136/75 (95) 97 01/28/20 00:00 72 01/27/20 21:45 74 142/64 01/27/20 21:00 Room Air 01/27/20 20:00 98.1 74 18 142/64 (90) 100 01/27/20 16:00 98.4 74 18 131/61 (84) 97 01/27/20 16:00 76 ROS: no interval change HEENT: normal ENT inspection RHYTHM: NSR LUNGS: rales bilaterally - few CARDIAC: normal rate, regular rhythm, normal S1 and S2, gallop/S4 ABDOMEN: normal bowel sounds, non tender, soft, no organomegaly EXTREMITIES: normal range of motion, No edema Assessment/Plan Assessment/Plan Hypertensive urgency resolved Hypertension/HHD ESRD Ac/chronic diastolic CHF Possible comm acq PNA IRDM HD with additional UF as outpatient Continue current antiHTN and antifailure regimen - avoid hydralazine for now. Insulin titration as outpatient. Maintain statin rx for LDL goal under 70 Kevan Parks MD Jan 28, 2020 14:16
--- NOTE | 2020-01-30 09:19 | Discharge Summary ---
Discharge Summary Discharge Summary _ DATE OF ADMISSION: 01/24/2020 DATE OF DISCHARGE: 01/28/2020 DISCHARGED BY: Dr. Kristopher Belcher CONSULTANTS: Dr. Rufus Park BRIEF HOSPITAL COURSE: Patient is a 44-year-old female, with history of end-stage renal disease on hemodialysis, hypertension and diabetes, presented to ED for evaluation of shortness of breath and cough. Symptom had been present for a week and was worsening. She reported difficulty catching her breath with nonproductive cough. She denied fever or chills. She had some diarrhea. She denied abdominal pain. She had COVID-19 earlier this summer. Upon evaluation at the ED, blood pressure was elevated to 189/102. She was afebrile and was saturating 95% on room air. Blood work did not show any leukocytosis. Hemoglobin 14 and hematocrit 50. Potassium was elevated to 6.7. BUN was 38 and creatinine 7.3. Troponin was normal. proBNP greater than 35,000. EKG showed sinus tachycardia with no ischemic changes; slightly peaked T waves. She was given IV calcium, insulin and glucose. Chest x-ray showed evidence of fluid overload consistent with elevated BNP. She was then admitted for evaluation of CHF, hyperkalemia, and end-stage renal failure. Patient was admitted to monitored floor. Patient required hemodialysis with ultrafiltration. She was continued on home medications. She was given nifedipine for blood pressure control. Echocardiogram showed normal left ventricular ejection fraction. Potassium level improved post hemodialysis. Antifailure regimen maximized. LDL was elevated to 109. She was given Pravachol 10 mg nightly. She complained of pruritus and was given hydroxyzine. Patient was breathing better. She was saturating well on room air. Patient was cleared for discharge home. FINAL DIAGNOSES: Acute on chronic diastolic CHF Possible community-acquired pneumonia Hypertensive urgency, resolved End-stage renal disease Hyperkalemia Diabetes mellitus Rash and other nonspecific skin eruption DISPOSITION: Patient was discharged home. DISCHARGE MEDICATIONS: Refer to Discharge Medication List. DISCHARGE INSTRUCTIONS: Follow-up in a week. I have been assigned to complete a discharge summary on this account, I was not involved with the patient's management.--SANDRITA Clark Jacqueline Robles NP Jan 30, 2020 09:19
== END 2020-01-28 12:35 | disposition home or self-care (01) | DRG 194 ==
LOC: EMR 12:51 → 2E 13:21 → EDBEDREQ 13:42 → 2E 01-27 14:38
PROC: 5A1D70Z Performance of Urinary Filtration, Intermittent, Less than 6 Hours Per Day (ICD-10-PCS; principal; 2020-01-25)
DX: I13.2 Hypertensive heart and chronic kidney disease with heart failure and with stage 5 chronic kidney disease, or end stage renal disease (principal); J18.9 Pneumonia, unspecified organism; N18.6 End stage renal disease; I50.33 Acute on chronic diastolic (congestive) heart failure; E87.5 Hyperkalemia; I16.0 Hypertensive urgency; E11.22 Type 2 diabetes mellitus with diabetic chronic kidney disease; Z99.2 Dependence on renal dialysis; Z88.0 Allergy status to penicillin; Z86.19 Personal history of other infectious and parasitic diseases; R21 Rash and other nonspecific skin eruption
CPT/HCPCS: 36415; 71045; 80053; 80061; 82248; 82977; 83036; 83615; 83735; 83880; 84100; 84439; 84443; 84481; 84484; 85025; 86140; 86706; 87081; 93005; 93306; 96374; 96375; 99291; J2405